=== PATIENT | male | born 1940 | race Caucasian/White ===

== ENCOUNTER → 2019-03-20 | Outpatient (CLI) | payer MEDICARE, MEDICAID, SELFPAY | PROVIDERS: Family Provider Nurse Practitioner; Visit Provider Internal Medicine Critical Care Medicine | DX: J44.9 Chronic obstructive pulmonary disease, unspecified (principal) | CPT/HCPCS: 36600; 80051; 82330; 82805; 83605 ==

== ENCOUNTER → 2019-03-29 16:39 | Outpatient (BNVA) | payer MEDICARE, MEDICAID, SELFPAY | PROVIDERS: Family Provider Nurse Practitioner; PCP Nurse Practitioner; Visit Provider Nurse Practitioner Family | DX: M25.551 Pain in right hip (principal); R91.1 Solitary pulmonary nodule; R78.5 Finding of other psychotropic drug in blood; E61.1 Iron deficiency; J30.89 Other allergic rhinitis; F41.1 Generalized anxiety disorder; K59.00 Constipation, unspecified; J44.9 Chronic obstructive pulmonary disease, unspecified; I10 Essential (primary) hypertension; K21.9 Gastro-esophageal reflux disease without esophagitis; E11.9 Type 2 diabetes mellitus without complications | CPT/HCPCS: 73502; 80053; 80061; 83036; 84443; 85025 ==

== ENCOUNTER 2019-04-03 15:33 | Outpatient (CLI) | payer MEDICARE, MEDICAID, SELFPAY ==
[2019-04-03 16:32] LABS: Creatinine Urine, Random 70 mg/dL (39-259)
[2019-04-03 16:48] LABS: Microalbum Creatinine Ratio Ur 14 mg/dL (0-20); Microalbumin Random Urine 1 ug/dL (0-20)
[2019-04-04 14:51] LABS: Immunoglobulin E 294 kU/L (<OR=114)
== END 2019-04-03 15:34 | disposition home or self-care (01) ==
LOC: LAB 15:40
PROVIDERS: Family Provider Nurse Practitioner; PCP Nurse Practitioner; Visit Provider Nurse Practitioner Family
DX: E11.69 Type 2 diabetes mellitus with other specified complication (principal); Z79.4 Long term (current) use of insulin
CPT/HCPCS: 82044; 82785

== ENCOUNTER → 2019-05-01 13:14 | Outpatient (BNVA) | payer MEDICARE, MEDICAID, SELFPAY | PROVIDERS: Family Provider Nurse Practitioner; PCP Nurse Practitioner; Referring Provider Nurse Practitioner Family; Visit Provider Specialist | DX: M25.551 Pain in right hip (principal); M16.11 Unilateral primary osteoarthritis, right hip | CPT/HCPCS: 73502 ==

== ENCOUNTER 2019-05-11 07:35 | Outpatient (CLI) | payer MEDICARE, MEDICAID, SELFPAY ==
[2019-05-11 10:26] LABS: Basophils % 0.3 %; Eosinophils # 0.2 10^3/uL (0.0-0.8); Eosinophils % 1.9 %; Lymphocytes # 1.2 10^3/uL (0.8-4.8); Mean Corpuscular Hemoglobin 29.1 pg (28.0-34.0); Mean Corpuscular Volume 94.2 fL (80-94); Mean Platelet Volume 9.5 fL (7.4-10.4); Monocytes # 0.8 10^3/uL (0.2-0.9); Monocytes % 10.1 %; Neutrophils # 5.5 10^3/uL (1.8-7.7); Neutrophils % 71.4 %; Nucleated Red Blood Cells % 0 %; Platelet Count 227 10^3/cmm (130-400); Red Blood Count 4.46 10^6/uL (4.1-5.3); Red Cell Distribution Width 13.3 % (12.1-15.1); White Blood Count 7.7 10^3/uL (4.0-10.0)
[2019-05-11 10:40] LABS: Alanine Aminotransferase 16 U/L (0-41); Albumin Level 3.1 g/dL (3.5-5.2); Alkaline Phosphatase 69 IU/L (40-130); Anion Gap 15.2 (5-19); Aspartate Amino Transferase 17 U/L (0-40); Blood Urea Nitrogen 20 mg/dL (8-23); Calcium 9.7 mg/dL (8.5-10.5); Carbon Dioxide 30 mmol/L (22-29); Chloride 101 mmol/L (98-107); Globulin 3.3 g/dL (1.3-4.6); Glucose 151 mg/dL (65-115); Potassium 5.2 mmol/L (3.5-5.1); Sodium 141 mmol/L (136-145); Total Bilirubin 0.4 mg/dL (0.15-1.2); Total Protein 6.4 g/dL (6.6-8.7)
== END 2019-05-11 07:36 | disposition home or self-care (01) ==
LOC: ONCMED 10:27
PROVIDERS: Family Provider Nurse Practitioner; PCP Nurse Practitioner; Visit Provider Internal Medicine Hematology & Oncology
DX: C18.7 Malignant neoplasm of sigmoid colon (principal)
CPT/HCPCS: 80053; 85025

== ENCOUNTER 2019-05-12 09:34 | Outpatient (CLI) | payer MEDICARE, MEDICAID, SELFPAY | END 2019-05-12 09:35 | disposition home or self-care (01) | LOC: ONCMED 09:37 | PROVIDERS: Family Provider Nurse Practitioner; PCP Nurse Practitioner; Visit Provider Internal Medicine Hematology & Oncology | DX: Z01.89 Encounter for other specified special examinations (principal) ==

== ENCOUNTER 2019-05-22 11:49 | Emergency (ER) | payer MEDICARE, MEDICAID, SELFPAY | END 2019-05-22 17:26 | disposition admitted as inpatient to this hospital (09) | LOC: ER 07-14 12:20 | PROVIDERS: Emergency Provider Family Medicine; Family Provider Nurse Practitioner; PCP Nurse Practitioner | DX: J44.0 Chronic obstructive pulmonary disease with (acute) lower respiratory infection (principal); J18.8 Other pneumonia, unspecified organism; D72.829 Elevated white blood cell count, unspecified; I11.0 Hypertensive heart disease with heart failure; I50.9 Heart failure, unspecified; E11.9 Type 2 diabetes mellitus without complications; E78.5 Hyperlipidemia, unspecified; Z99.81 Dependence on supplemental oxygen; Z87.891 Personal history of nicotine dependence | CPT/HCPCS: 36415; 71046; 71260; 80053; 83540; 83550; 83880; 84145; 84443; 85025; 87804; 99283; 99285; J0696; Q9967 ==

== ENCOUNTER 2019-05-22 12:01 | Inpatient (IN) | payer MEDICAID, SELFPAY ==
[2019-05-22] VITALS (8 sets, daily range): BP systolic 111–136; BP diastolic 51–67; PULSE 50–82; RESP 16–24; TEMP 36.6–36.9; O2SAT 92–98; BMI 30.7
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
--- NOTE | 2019-05-22 12:30 | XR_ITS ---
WS: [id number] XR chest 2V* [id number] REASON FOR EXAM: SOB FINDINGS: Borderline cardiomegaly is noted the heart is similar to previous exam February 26, 2019. Th e A dual electrode pacemaker is again seen electrode wiring satisfactory. Both lung malone appear to be clear with no pneumonia, pleural effusion, pulmonary edema, are pneumot horax. The hilum and apices are normal. No osseous abnormalities other than degenerate changes of the thoracic spine. XR/XR chest 2V* 54415 IMPRESSION: No acute cardiopulmonary changes. Dual electrode pacemaker.
[2019-05-22 12:57] LABS: Basophils % 0.2 %; Eosinophils % 0.1 %; Hematocrit 42.3 % (42.0-52.0); Hemoglobin 13.1 g/dL (11.7-16.6); Lymphocytes % 6.1 %; Mean Corpuscular Hemoglobin 28.3 pg (28.0-34.0); Mean Corpuscular Volume 91.4 fL (80-94); Monocytes # 1.1 10^3/uL (0.2-0.9); Monocytes % 6.8 %; Neutrophils # 14.4 10^3/uL (1.8-7.7); Neutrophils % 86.4 %; Nucleated Red Blood Cells % 0 %; Platelet Count 211 10^3/cmm (130-400); Red Blood Count 4.63 10^6/uL (4.1-5.3); Red Cell Distribution Width 13.1 % (12.1-15.1); White Blood Count 16.6 10^3/uL (4.0-10.0)
[2019-05-22 13:09] LABS: Alanine Aminotransferase 18 U/L (0-41); Albumin Level 3.1 g/dL (3.5-5.2); Alkaline Phosphatase 60 IU/L (40-130); Anion Gap 14.4 (5-19); Aspartate Amino Transferase 18 U/L (0-40); Blood Urea Nitrogen 15 mg/dL (8-23); Calcium 9.2 mg/dL (8.5-10.5); Carbon Dioxide 26 mmol/L (22-29); Chloride 101 mmol/L (98-107); Globulin 3.5 g/dL (1.3-4.6); Glucose 166 mg/dL (65-115); Potassium 4.4 mmol/L (3.5-5.1); Sodium 137 mmol/L (136-145); Total Bilirubin 0.8 mg/dL (0.15-1.2); Total Protein 6.6 g/dL (6.6-8.7)
[2019-05-22 13:16] LABS: Influenza A by IFA Negative (Negative); Influenza B by IFA Negative (Negative)
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
[2019-05-22] MEDS: iohexol 300 mg/mL 100 mL Btl IV (14:45)
[2019-05-22] MEDS: cefTRIAXone 2,000 MG in sodium chloride 0.9% (plus) 50 ML 100 MG IV (16:06)
--- NOTE | 2019-05-22 17:08 | PC.PHAR ---
PT STATES THAT [facility] TAKES CARE OF HIS MEDICATION, I TALKED TO STEVAN FROM [facility] SHE STATES THE LAST TIME THE LIST WAS UPDATED WAS IN OCTOBER 2018 BUT SHE WENT OVER THE LIST OF WHAT THEY HAD AND THATS WHAT WAS PUT IN
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
[2019-05-22] MEDS: azithromycin 500 MG in sodium chloride 0.9% 250 ML 250 MG IV (17:19)
[2019-05-22 17:48] LABS: Glucose Point of Care 126 mg/dL (70-110)
[2019-05-22 18:22] LABS: Lactic Sepsis W/Reflex 0.9 mmol/L (0.5-2.2)
[2019-05-22 18:26] LABS: NT Pro B Type Natriuretic Pept 3953 pg/mL (0-450)
[2019-05-22 18:55] LABS: Procalcitonin 0.13 ng/mL (0-0.5); Thyroid Stimulating Hormone 1.38 uIU/mL (0.27-4.20)
[2019-05-22 19:06] LABS: Iron 25 ug/dL (59-158); Percent Saturation 10.5 % (20-50); Total Iron Binding Capacity 237 mcg/dl; Unsaturated Iron Binding 212 ug/dL (112-347)
[2019-05-22 19:26] LABS: Influenza A by IFA Negative (Negative); Influenza B by IFA Negative (Negative)
[2019-05-22] MEDS: budesonide 0.5 mg/2 mL Neb INHALATION (19:43)
[2019-05-22] MEDS: ipratropium-albuterol 3 mL Neb INHALATION (19:43)
[2019-05-22] MEDS: enoxaparin 40 mg/0.4 mL Syringe SUBCUT (20:06)
[2019-05-22] MEDS: tamsulosin 0.4 mg Capsule PO (20:06)
[2019-05-22 21:02] LABS: Glucose Point of Care 200 mg/dL (70-110)
[2019-05-22 22:38] LABS: Bacteria Urine TRACE; Bilirubin Urine 1+ (NEGATIVE); Blood Urine Neg (Negative); Glucose Urine UA Norm (Normal); Ketones Urine Negative (Negative); Leukocyte Esterase Urine Negative (Negative); Nitrate Urine Negative (Negative); Protein Urine Trace (Negative); Specific Gravity, Urine 1.015 (1.005-1.030); Squamous Epithelial Cell Urine RARE (0-5); Transitional Epi Cells Urine RARE /hpf; Urine Appearance Clear (CLEAR); Urine Color Dark Yellow (Yellow); Urobilinogen Urine Norm (Negative); pH Urine 5 (5-7)
[2019-05-22 22:39] LABS: Add Urine Culture? No; Fine Granular Casts Urine 0-4 /lpf; Mucus Urine TRACE
[2019-05-23] VITALS (13 sets, daily range): BP systolic 103–158; BP diastolic 50–101; PULSE 53–88; RESP 18–24; TEMP 36.4–37.1; O2SAT 94–100
[2019-05-23] MEDS: ipratropium-albuterol 3 mL Neb INHALATION ×4 (02:53→20:01)
[2019-05-23] MEDS: acetaminophen 325 mg Tablet 650 MG PO (03:44)
[2019-05-23 04:51] LABS: Basophils % 0.2 %; Eosinophils # 0.1 10^3/uL (0.0-0.8); Hematocrit 39.1 % (42.0-52.0); Hemoglobin 12.3 g/dL (11.7-16.6); Lymphocytes # 1.4 10^3/uL (0.8-4.8); Lymphocytes % 15.1 %; Mean Corpuscular HGB Conc 31.5 g/dL (30.0-36.0); Mean Corpuscular Hemoglobin 27.8 pg (28.0-34.0); Mean Corpuscular Volume 88.5 fL (80-94); Mean Platelet Volume 9.3 fL (7.4-10.4); Monocytes # 1.1 10^3/uL (0.2-0.9); Monocytes % 11.4 %; Neutrophils # 6.7 10^3/uL (1.8-7.7); Nucleated Red Blood Cells % 0 %; Platelet Count 213 10^3/cmm (130-400); Red Blood Count 4.42 10^6/uL (4.1-5.3); Red Cell Distribution Width 13.2 % (12.1-15.1); White Blood Count 9.3 10^3/uL (4.0-10.0)
[2019-05-23 05:15] LABS: Alanine Aminotransferase 16 U/L (0-41); Albumin Level 3.2 g/dL (3.5-5.2); Alkaline Phosphatase 64 IU/L (40-130); Anion Gap 17.5 (5-19); Aspartate Amino Transferase 16 U/L (0-40); Blood Urea Nitrogen 20 mg/dL (8-23); Calcium 9.4 mg/dL (8.5-10.5); Carbon Dioxide 26 mmol/L (22-29); Chloride 100 mmol/L (98-107); Globulin 3.1 g/dL (1.3-4.6); Glucose 140 mg/dL (65-115); Potassium 4.5 mmol/L (3.5-5.1); Sodium 139 mmol/L (136-145); Total Bilirubin 0.5 mg/dL (0.15-1.2); Total Protein 6.3 g/dL (6.6-8.7)
[2019-05-23 05:23] LABS: Estmated Average Glucose 140; Hemoglobin A1C 6.5 % (4.0-6.0)
[2019-05-23 06:38] LABS: Glucose Point of Care 114 mg/dL (70-110)
[2019-05-23] MEDS: budesonide 0.5 mg/2 mL Neb INHALATION ×2 (08:30→20:01)
[2019-05-23] MEDS: famotidine 20 mg Tablet 40 MG PO ×2 (08:50→18:00)
[2019-05-23] MEDS: fluticasone nasal spray 16gm Btl 2 SPRAY INTRANASAL (08:50)
[2019-05-23] MEDS: ferrous sulfate EC 325 mg Tablet PO (08:50)
[2019-05-23] MEDS: finasteride 5 mg Tablet PO (08:51)
[2019-05-23] MEDS: roflumilast 500 mcg Tablet PO (08:51)
[2019-05-23] MEDS: metoprolol tartrate 50 mg Tablet 75 MG PO ×2 (08:51→18:00)
[2019-05-23] MEDS: atorvastatin 40 mg Tablet 80 MG PO (08:51)
[2019-05-23] MEDS: aspirin 81 mg EC Tablet PO (08:51)
[2019-05-23] MEDS: montelukast sodium 10 mg Tablet PO (08:51)
[2019-05-23] MEDS: tamsulosin 0.4 mg Capsule PO ×2 (08:51→18:01)
[2019-05-23] MEDS: FUROsemide 40 mg Tablet PO (08:52)
[2019-05-23 12:06] LABS: Glucose Point of Care 135 mg/dL (70-110)
--- NOTE | 2019-05-23 14:30 | P.PN_ITS ---
Subjective Subjective: Interval history: fells better today, States breathing is improving but not at baseline yet. Saturating well on 4lpm NC, which is his usual home 02 requirement Medications: Reviewed: Yes Vitals/I&O/Wt Last Vital Signs Temp 97.9 F 05/23/19 11:25 Pulse 67 05/23/19 14:23 Resp 18 05/23/19 14:23 BP 158/101 05/23/19 11:25 Pulse Ox 97 05/23/19 14:23 05/22/19 05/23/19 05/23/19 22:59 06:59 14:59 Intake Total 400 / 400 960 / 960 Output Total 125 / 125 Balance 400 / 400 -125 / 275 960 / 960 Weight last 48 hrs Weight 81.737 kg Weight 99.79 kg Physical Exam Narrative: EXAM NARRATIVE: GEN: Awake, alert and oriented, no acute distress CVS: S1S2 N RS: CTA B/L except crackles over RUL Abd: Soft, nt/nd , bs+ 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 Data : 05/23/19 04:21 05/23/19 04:21 Micro: Microbiology 05/22/19 18:35 MRSA Culture - Final Nose 05/22/19 17:39 Blood Culture - Preliminary Blood SPECIMEN COLLECTED 05/22/19 17:39 Blood Culture - Preliminary Blood SPECIMEN COLLECTED A&P Assessment and plan (1) Shortness of breath: Status: Acute Code(s): R06.02 - Shortness of breath (2) Community acquired pneumonia: Status: Acute Qualifiers: Laterality: left Lung location: lower lobe of lung Qualified Code(s): J18.9 - Pneumonia, unspecified organism Code(s): J18.9 - Pneumonia, unspecified organism (3) COPD (chronic obstructive pulmonary disease): Status: Chronic Qualifiers: COPD type: unspecified COPD Qualified Code(s): J44.9 - Chronic obstructive pulmonary disease, unspecified Code(s): J44.9 - Chronic obstructive pulmonary disease, unspecified (4) CHF (congestive heart failure): Status: Acute Code(s): I50.9 - Heart failure, unspecified (5) GERD (gastroesophageal reflux disease): Status: Chronic Qualifiers: Esophagitis presence: without esophagitis Qualified Code(s): K21.9 - Gastro-esophageal reflux disease without esophagitis Code(s): K21.9 - Gastro-esophageal reflux disease without esophagitis (6) Essential hypertension: Status: Chronic Code(s): I10 - Essential (primary) hypertension Additional A&P Information Shortness of breath: Most likely due to community-acquired pneumonia: CT chest concerning for left lower lobe consolidation. continue the ceftriaxone and azithromycin for now. Patient is hemodynamically stable and saturating well on baseline oxygen supplementation. COPD: Does not have extensive wheezing at present, saturating well on baseline oxygen supplementation. For now we will continue on duo nebs, budesonide. Will hold off on starting on any steroids for now. Continue home dose of fluticasone. Wean off oxygen supplementation keeping saturation between 88-90% Continue home dose of Singulair, Daliresp as prescribed by Dr. Maxwell as an outpatient. CHF: Patient seems euvolemic at present. Continue home dose of Lasix at 40 mg daily. Last echo from January 2019 shows an EF of 40%, diffuse hypokinesis, grade?1 diastolic dysfunction. Hypertension: We will monitor blood pressures. For now continue home dose of Lopressor but will divide and twice daily dosage. Continue chronic home medications like aspirin, finasteride, oral iron supplementation, nortriptyline, Flomax. Fall precautions Regular cardiac diet. Lovenox for DVT prophylaxis. Protonix for PUD prophylaxis Full code. Attestations Medical Necessity Statement*: optimization of respiratory status Coding Level of Care Code Acute Supervisor Finishing for [facility] Fwd Diagnoses Shortness of breath R06.02 Community acquired pneumonia J18.9 Laterality: left Lung location: lower lobe of lung COPD (chronic obstructive pulmonary disease) J44.9 COPD type: unspecified COPD CHF (congestive heart failure) I50.9 GERD (gastroesophageal reflux disease) K21.9 Esophagitis presence: without esophagitis Essential hypertension I10
--- NOTE | 2019-05-23 15:20 | PC.CHAP ---
Pastoral Care Encounter/Spiritual Assessment Type of Contact [] Declined nutrition program instructor visit [] Patient/Family/Request visit [] Outpatient visit [] Follow-up visit [] Physician referral [] Code/Alert [x] Routine visit [] Staff referral [] Actively dying [] Patient sleeping [] Family support [] [] Out of room [] Palliative care [] [] Receiving care in room [] Pre-surgical visit [] Trauma [] Long length of stay [] ICU visit [] Other: Relational/Emotional Strength [x] Patient feels connected with others/family/visitors/staff [] Distress [] Loneliness/isolation [] Abandonment Spirituality of Patient [] Person of Lynda [] Attends Christianity of their Lynda [x] Believes in Prayer [] Reads Bible or Hinduism materials [] There are Spiritual issues to be addressed Airconditioning Engineer Interventions [x] Prayer [x] Active listening [x] Non-anxious presence [x] Spiritual/emotional support [] Crisis/trauma care [] Spiritual counseling [] Bereavement support [] Provided bereavement packet [] Provided Bible/devotional materials [] Provided toy/stuffed animal, coloring book to patient or family member [] Provided Communion [] Anointing/Trent [] Salvation [x] Completed spiritual assessment [] Other: Impact on Illness or Injury [] Angry [] Fearful [] Anxious [] Often cries [] Exhaustion [] Unable to work [] Unable to attend orthodox [] Unable to walk/stand [] Unable to read [] Unable to drive [] Unable to eat/drink [] Unable to sleep [] Unable to be with family [] Patient intubated [x] Other: Senior citizen with many health issues that limit activities. Summary Pt is pleasant and talkative and wanted to describe ailment the have told him he has. Time spent with patient 7 min
[2019-05-23] MEDS: cefTRIAXone 1,000 MG in sodium chloride 0.9% (plus) 50 ML 100 MG IV (15:58)
[2019-05-23 16:59] LABS: Glucose Point of Care 126 mg/dL (70-110)
[2019-05-23] MEDS: azithromycin 500 MG in sodium chloride 0.9% 250 ML 250 MG IV (18:00)
[2019-05-23] MEDS: enoxaparin 40 mg/0.4 mL Syringe SUBCUT (18:05)
[2019-05-24] VITALS (12 sets, daily range): BP systolic 126–145; BP diastolic 66–73; PULSE 55–90; RESP 17–22; TEMP 36.4–36.8; O2SAT 87–100
[2019-05-24] MEDS: ipratropium-albuterol 3 mL Neb INHALATION ×3 (02:12→14:32)
[2019-05-24 06:14] LABS: Glucose Point of Care 184 mg/dL (70-110)
[2019-05-24 06:14] LABS: Glucose Point of Care 149 mg/dL (70-110)
[2019-05-24] MEDS: budesonide 0.5 mg/2 mL Neb INHALATION (08:23)
[2019-05-24] MEDS: fluticasone nasal spray 16gm Btl 2 SPRAY INTRANASAL (08:23)
[2019-05-24] MEDS: aspirin 81 mg EC Tablet PO (08:23)
[2019-05-24] MEDS: famotidine 20 mg Tablet 40 MG PO (08:24)
[2019-05-24] MEDS: FUROsemide 40 mg Tablet PO (08:24)
[2019-05-24] MEDS: tamsulosin 0.4 mg Capsule PO (08:25)
[2019-05-24] MEDS: metoprolol tartrate 50 mg Tablet 75 MG PO (08:25)
[2019-05-24] MEDS: atorvastatin 40 mg Tablet 80 MG PO (08:25)
[2019-05-24] MEDS: montelukast sodium 10 mg Tablet PO (08:27)
[2019-05-24] MEDS: roflumilast 500 mcg Tablet PO (08:28)
[2019-05-24] MEDS: finasteride 5 mg Tablet PO (08:28)
[2019-05-24] MEDS: ferrous sulfate EC 325 mg Tablet PO (08:29)
--- NOTE | 2019-05-24 10:15 | PC.SOCIAL ---
Patient was given the [facility] Beneficiary Notification Letter. Signed and placed in chart.
[2019-05-24 10:58] LABS: Glucose Point of Care 182 mg/dL (70-110)
--- NOTE | 2019-05-24 12:35 | PC.RESP ---
Patient given information on Pulmonary Rehab.
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
== END 2019-05-24 16:33 | disposition home health service (06) | DRG 194 ==
LOC: ER 13:44 → MEDSURG 17:25
PROVIDERS: Student in an Organized Health Care Education/Training Program; Admitting Provider Student in an Organized Health Care Education/Training Program; Emergency Provider Family Medicine; Family Provider Nurse Practitioner; PCP Nurse Practitioner; Visit Provider Student in an Organized Health Care Education/Training Program
DX: J18.9 Pneumonia, unspecified organism (principal); J44.0 Chronic obstructive pulmonary disease with (acute) lower respiratory infection; I50.40 Unspecified combined systolic (congestive) and diastolic (congestive) heart failure; K21.9 Gastro-esophageal reflux disease without esophagitis; I11.0 Hypertensive heart disease with heart failure; Z99.81 Dependence on supplemental oxygen; Z79.4 Long term (current) use of insulin; Z79.51 Long term (current) use of inhaled steroids; Z79.82 Long term (current) use of aspirin; Z79.899 Other long term (current) drug therapy; Z87.891 Personal history of nicotine dependence
CPT/HCPCS: 12345; 36415; 36416; 71046; 71260; 80053; 81001; 82962; 83036; 83540; 83550; 83605; 83880; 84145; 84443; 85025; 87040; 87641; 87804; 94640; 94664; 96372; 97116; 97161; 99283; 99285; J0456; J0696; J1650; J7050; J7626; Q9967

== ENCOUNTER → 2019-05-31 11:50 | Outpatient (BNVA) | payer MEDICARE, MEDICAID, SELFPAY | PROVIDERS: Family Provider Nurse Practitioner; PCP Nurse Practitioner; Visit Provider Nurse Practitioner | DX: J18.9 Pneumonia, unspecified organism (principal); J44.9 Chronic obstructive pulmonary disease, unspecified; R06.02 Shortness of breath; Z95.0 Presence of cardiac pacemaker | CPT/HCPCS: 71046 ==

== ENCOUNTER → 2019-09-14 09:37 | Outpatient (BNVA) | payer MEDICARE, MEDICAID, SELFPAY | PROVIDERS: Family Provider Nurse Practitioner; PCP Nurse Practitioner; Visit Provider Nurse Practitioner Family | DX: R06.02 Shortness of breath (principal); R91.1 Solitary pulmonary nodule; R63.4 Abnormal weight loss; K21.9 Gastro-esophageal reflux disease without esophagitis; J44.9 Chronic obstructive pulmonary disease, unspecified | CPT/HCPCS: 71046; 80053; 85025 ==

== ENCOUNTER 2019-09-25 08:41 | Outpatient (CLI) | payer MEDICARE, MEDICAID, SELFPAY ==
--- NOTE | 2019-09-25 09:00 | CT_ITS ---
WS: [id number] CT CHEST, ABDOMEN, AND PELVIS TECHNIQUE: Contrast-enhanced CT of the chest, abdomen, and pelvis with coronal and sagittal reformatt ed images. CLINICAL INFORMATION: hiatal hernaia, unintentional weight loss COMPARISON: CT chest May 22, 2019. CT abdomen pelvis February 26, 2019 DLP: 2398.[address] scans at [facility] use at least one of these dose optimization techniques: automat ed exposure control; mA and/or kV adjustment per patient size (includes targeted exams where dose is matched to clinical indication); or iterative reconstruction. CT CHEST: Mild chronic emphysematous changes. No acute pulmonary infiltrates. Persistent described infiltrates in the left lower lobe have essentially resolved with a small amount of residual subsegmental atelect asis. Interstitial infiltrates left upper lobe previously described have resolved. Stable noncontrast pulmonary nodule left lower lobe measuring 5 mm. Cardiomegaly. No mediastinal or hilar lymphadenopathy. Normal caliber thoracic aorta. Aortic calcific ation. Coronary calcification. Small esophageal hiatal hernia. Hypertrophic changes thoracic spine. CT ABDOMEN AND PELVIS: Diffuse fatty infiltration of the liver. A few incidental hepatic cysts. Cholelithiasis. Small esopha geal hiatal hernia. Normal spleen. Adrenal glands are normal. Normal renal parenchymal enhancement. N o obstructing renal parenchymal calculi. Incidental small left renal cyst measuring 11 mm. Unremarkab le pancreas. Normal caliber abdominal aorta. Aortic calcification. Diverticulosis. No acute diverticulitis. Diffuse heterogeneous enhancement of the prostate with nodul arity. Recommend correlation for PSA. Left anterior eccentric prostate nodule measuring 1.7 cm. Diffu se bladder wall thickening with chronic bladder outlet obstruction. Right anterior bladder diverticul um measuring 1.4 cm. Prior postoperative changes sigmoid colon.Grade 1 anterolisthesis L5 on S1 with chronic bilateral pars defects. CT/CT chest abd pel w con* IMPRESSION: 1. Previous described pulmonary infiltrates have resolved. No new pulmonary in filtrates. 2. Stable noncalcified nodule left lower lobe. Recommend 12 month follow-up. 3. Diffuse fatty infiltration of the liver. Stable hepatic cysts. 4. Cholelithiasis. 5. Diffuse heterogeneous enhancement with nodularity involving the prostate. R ecommend correlation PSA. 6. Evidence of bladder outlet obstruction with diffuse bladder wall thickening . 7. Small esophageal hiatal hernia.
[2019-09-25] MEDS: iohexol 300 mg/mL 50 mL Btl PO (09:10)
[2019-09-25] MEDS: iodixanol 320 mg/mL 100mL Btl IV (10:47)
== END 2019-09-25 08:42 | disposition home or self-care (01) ==
LOC: RADWPI 08:45
PROVIDERS: Family Provider Nurse Practitioner; PCP Nurse Practitioner; Visit Provider Nurse Practitioner Family
DX: R91.1 Solitary pulmonary nodule (principal); K44.9 Diaphragmatic hernia without obstruction or gangrene; R63.4 Abnormal weight loss; K76.0 Fatty (change of) liver, not elsewhere classified; K80.20 Calculus of gallbladder without cholecystitis without obstruction
CPT/HCPCS: 71260; 74177; Q9967

== ENCOUNTER 2019-10-10 09:39 | Day surgery (SDC) | payer MEDICARE, MEDICAID, SELFPAY ==
[2019-10-09 08:12] VITALS: BMI 25.1
[2019-10-10 09:13] VITALS: BP 130/81; PULSE 67; RESP 20; TEMP 36.3; O2SAT 100
[2019-10-10 09:28] LABS: Glucose Point of Care 133 mg/dL (70-110)
[2019-10-10] MEDS: sodium chloride 0.9% 1,000 ML 30 ML IV (09:41)
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
--- NOTE | 2019-10-10 11:33 | W.PM.OPSUD ---
Surgery/Procedure H&P Update DATE OF PROCEDURE: October 10, 2019 DATE H&P PERFORMED: 10/02/19 H&P UPDATE INFORMATION: I have reviewed H&P completed within last 30 days, I have examined patient prior to procedure and No changes to prior documentation PREOP DIAGNOSIS: gerd, ca PLANNED PROCEDURE: Operation Date: 10/10/19 10:00 Proposed Procedures p EGD/Colon 52435 61743 C18.9 K21.9(Not Applicable) - Ty Shea MD s Colonoscopy(Not Applicable) - Ty Shea MD
[2019-10-10 11:34] LABS: Carcinoembryonic Antigen 1.7 ng/mL (0.0-4.7)
[2019-10-10 12:23] VITALS: BP 110/68; PULSE 62; RESP 16; TEMP 36.2; O2SAT 94
[2019-10-10 12:47] VITALS: BP 137/91; PULSE 61; RESP 18; TEMP 36.2; O2SAT 98
== END 2019-10-10 13:06 | disposition home or self-care (01) ==
PROVIDERS: PCP Nurse Practitioner; Visit Provider Surgery
PROC: 0DJ08ZZ Inspection of Upper Intestinal Tract, Via Natural or Artificial Opening Endoscopic (ICD-10-PCS; CPT 43235; principal; 2019-10-10 10:00)
PROC: 0DJD8ZZ Inspection of Lower Intestinal Tract, Via Natural or Artificial Opening Endoscopic (ICD-10-PCS; CPT 45378; 2019-10-10 10:00)
DX: Z85.038 Personal history of other malignant neoplasm of large intestine (principal); K21.9 Gastro-esophageal reflux disease without esophagitis; D12.2 Benign neoplasm of ascending colon; D12.0 Benign neoplasm of cecum; D12.4 Benign neoplasm of descending colon; D12.3 Benign neoplasm of transverse colon; K57.30 Diverticulosis of large intestine without perforation or abscess without bleeding; K64.8 Other hemorrhoids; K29.70 Gastritis, unspecified, without bleeding; K44.9 Diaphragmatic hernia without obstruction or gangrene; J44.9 Chronic obstructive pulmonary disease, unspecified; I10 Essential (primary) hypertension; I25.2 Old myocardial infarction; E11.9 Type 2 diabetes mellitus without complications; E78.5 Hyperlipidemia, unspecified; F41.1 Generalized anxiety disorder
CPT/HCPCS: 12345; 36416; 45380; 82378; 82962; 88305; J2704; J7030

== ENCOUNTER → 2019-10-23 16:29 | Outpatient (BNVA) | payer MEDICARE, MEDICAID, SELFPAY | PROVIDERS: PCP Nurse Practitioner; Visit Provider Nurse Practitioner | DX: J44.9 Chronic obstructive pulmonary disease, unspecified (principal); E11.22 Type 2 diabetes mellitus with diabetic chronic kidney disease; N18.2 Chronic kidney disease, stage 2 (mild); Z79.4 Long term (current) use of insulin | CPT/HCPCS: 71046; 80053; 83036; 85025 ==

== ENCOUNTER 2019-11-22 07:55 | Outpatient (CLI) | payer MEDICARE, MEDICAID, SELFPAY ==
[2019-11-22 14:48] LABS: Basophils % 0.6 %; Eosinophils # 0.1 10^3/uL (0.0-0.8); Eosinophils % 1.7 %; Hematocrit 45.9 % (42.0-52.0); Hemoglobin 14.6 g/dL (11.7-16.6); Lymphocytes # 1.3 10^3/uL (0.8-4.8); Lymphocytes % 17.5 %; Mean Corpuscular HGB Conc 31.8 g/dL (30.0-36.0); Mean Corpuscular Volume 91.1 fL (80-94); Mean Platelet Volume 8.8 fL (7.4-10.4); Monocytes # 0.6 10^3/uL (0.2-0.9); Monocytes % 7.8 %; Neutrophils # 5.21 10^3/uL (1.8-7.7); Neutrophils % 72.1 %; Nucleated Red Blood Cells % 0 %; Platelet Count 228 10^3/cmm (130-400); Red Blood Count 5.04 10^6/uL (4.1-5.3); White Blood Count 7.2 10^3/uL (4.0-10.0)
[2019-11-22 15:09] LABS: Carcinoembryonic Antigen 1.5 ng/mL (0.0-4.7)
[2019-11-22 15:21] LABS: Alanine Aminotransferase 30 U/L (0-41); Albumin Level 3.5 g/dL (3.5-5.2); Alkaline Phosphatase 66 IU/L (40-130); Anion Gap 20.1 (5-19); Aspartate Amino Transferase 19 U/L (0-40); Blood Urea Nitrogen 19 mg/dL (8-23); Calcium 8.7 mg/dL (8.5-10.5); Carbon Dioxide 25 mmol/L (22-29); Chloride 96 mmol/L (98-107); Globulin 2.8 g/dL (1.3-4.6); Glucose 115 mg/dL (65-115); Osmolality Calculated 281 mOsm/kg (285-295); Potassium 4.1 mmol/L (3.5-5.1); Sodium 137 mmol/L (136-145); Total Bilirubin 0.4 mg/dL (0.15-1.2); Total Protein 6.3 g/dL (6.6-8.7)
== END 2019-11-22 07:56 | disposition home or self-care (01) ==
LOC: ONCMED 13:58
PROVIDERS: PCP Nurse Practitioner; Visit Provider Internal Medicine Hematology & Oncology
DX: C18.7 Malignant neoplasm of sigmoid colon (principal)
CPT/HCPCS: 80053; 82378; 85025

== ENCOUNTER 2019-11-23 05:58 | Outpatient (CLI) | payer MEDICARE, MEDICAID, SELFPAY ==
--- NOTE | 2019-11-23 15:34 | ONC FU_ITS ---
Dr. Ervin follow up note Patient: Andrew Sainz Unit #: [id number]: 1940 Dicatated By: Bunny Ervin M.D.Date of Visit:Nov 23, 2019 Onc Med Follow-up/Prog Note History of Present Illness: Mr. Andrew Sainz, is a 79-year-old gentleman with history of iron deficiency anemia and GI bleed , underwent CT scan of abdomen pelvis on 05/26/2018 which showed extensive sigmoid diverticulosis and some mild wall thickening throughout the sigmoid and no adenopathy and stable hepatic low attenuation masses which are probably hepatic cysts. Patient underwent laparoscopic sigmoidectomy on 06/15/2018 and final pathology report showed infiltrating adenocarcinoma mucinous adenocarcinoma, low grade tumor dimension was 1.1 x 1.1 cm with clear surgical margins 0 out of 10 lymph node positive for metastatic disease no lymphovascular invasion identified. Patient tolerated procedure very well COPD on home oxygen, [place] Patient was admitted to hospital with hyperglycemia in February 2019 at that time he had CT scan of abdomen pelvis done which showed no evidence of metastatic disease, no acute abnormality or inflammatory changes seen. Incidental findings include liver cysts, renal cysts and cholelithiasis. Evaluated via telephone, patient denies any specific complaints, no fever or chills, no nausea or vomiting, no diarrhea constipation, darker stools because of oral iron supplements. Patient said he has seen Dr. Shea recently and underwent colonoscopy which showed no evidence disease. Medications: Advair Diskus 2 puff(s) (of 500-50 mcg/dose) Aerosol Powder, Breath Activated Inhalation b.i.d., Aspirin 1 Tablet (of 81 mg) Oral daily, Bydureon 1 (2 mg) Subcutaneous q 7 days, Daliresp 1 Tablet (of 500 mcg) Oral daily, Ferrous Sulfate 1 Tablet (of 325 (65 fe) mg) Oral b.i.d., Finasteride 1 Tablet (of 5 mg) Oral daily, Flonase 2 spray(s) (of 50 mcg/act) Suspension Nasal daily, Loratadine 1 Tablet (of 10 mg) Oral daily, Losartan Potassium 1 Tablet (of 25 mg) Oral b.i.d., Magnesium 1 Capsule (of 400 mg) Oral daily, Metoprolol Succinate ER 1.5 Tablet (of 50 mg) Tablet SR 24 HR Oral daily, MiraLax 1 Pack Oral daily, Montelukast Sodium 1 Tablet (of 10 mg) Oral at bedtime, Nortriptyline HCl 1 Tablet (of 50 mg) Capsule Oral at bedtime, Omeprazole 1 Tablet (of 20 mg) Tablet, enteric coated Oral daily, ProAir HFA 2 puff(s) (of 108 (90 base) mcg/act) Aerosol, solution Inhalation q 4 hours PRN, Rosuvastatin Calcium 1 Tablet (of 40 mg) Oral daily, Spironolactone 1 Tablet (of 25 mg) Oral daily Allergies: No Known Allergies. Review of Systems: Review of Systems is not available for this patient. Vital Signs: Vitals are not available for this patient. Performance Status: 0 - Fully active, able to carry on all predisease activities without restrictions. (ECOG) Physical Examination: ENMT - Patient denies any mouth sores, Respiratory - Patient denies any shortness of breath or wheezing at rest, Cardiovascular - Patient denies any palpitation or tachycardia, Abdomen - Patient denies any abdominal pain or fullness, Extremities - Patient denies any lower extremity edema. Lab/Imaging: Most recent lab results are not available for this patient. Impression: Infiltrating adenocarcinoma of sigmoid colon status post laparoscopic sigmoidectomy done on 06/15/2018 final pathology report showed low-grade tumor, tumor size 1.1 x 1.1 cm Invasion into but not through muscularis propria T2 Clear surgical margins 0 out of 10 lymph nodes were removed showed metastatic disease, N0 No lymphovascular invasion seen Pathological stage 1 (T2,N0,M0) with inadequate lymph node sampling e.g. less than [address] scan of abdomen pelvis done on 05/26/2018 showed stable hepatic low attenuation masses which are probably cysts stable when compared with CT scan from 01/04/2014 Bilateral nephrolithiasis with no obstruction COPD on home oxygen Plan: Discussed with patient regarding his labs on the telephone, white blood count of 7.2 hemoglobin 14.6 crit 45.9 platelets 228,000 CMP within normal limits CEA 1.[address] scan of chest abdomen pelvis ordered by his PMD on September 25, 2019 which showed of disease stable noncalcified nodule left lower lobeAnd as per patient also underwent colonoscopy recently and showed no abnormality. Clinically, patient is doing well with no signs symptom suggestive of recurrence of disease, his follow-up lab work-up is within normal range, at this point, will discontinue his oral iron supplements and he will return to clinic in 6 months with CBC CMP. And will also obtain copy of his colonoscopy from Dr. Shea's office Signed By: Bunny Ervin M.D. <<Signature on File>>
== END 2019-11-23 05:59 | disposition home or self-care (01) ==
LOC: ONCMED 06:00
PROVIDERS: PCP Nurse Practitioner; Visit Provider Internal Medicine Hematology & Oncology
DX: Z08 Encounter for follow-up examination after completed treatment for malignant neoplasm (principal); Z85.038 Personal history of other malignant neoplasm of large intestine; Z90.49 Acquired absence of other specified parts of digestive tract; R91.1 Solitary pulmonary nodule; N20.0 Calculus of kidney; J44.9 Chronic obstructive pulmonary disease, unspecified; Z99.81 Dependence on supplemental oxygen

== ENCOUNTER → 2020-01-17 10:04 | Outpatient (BNVA) | payer MEDICARE, MEDICAID, SELFPAY | PROVIDERS: PCP Nurse Practitioner; Visit Provider Nurse Practitioner | DX: I10 Essential (primary) hypertension (principal); E78.5 Hyperlipidemia, unspecified; E11.22 Type 2 diabetes mellitus with diabetic chronic kidney disease; N18.2 Chronic kidney disease, stage 2 (mild); Z79.4 Long term (current) use of insulin | CPT/HCPCS: 80053; 80061; 83036; 85025 ==

== ENCOUNTER → 2020-01-31 15:29 | Outpatient (BNVA) | payer MEDICARE, MEDICAID, SELFPAY | PROVIDERS: PCP Nurse Practitioner; Visit Provider Urology | DX: N39.46 Mixed incontinence (principal); N39.9 Disorder of urinary system, unspecified | CPT/HCPCS: 81003 ==

== ENCOUNTER → 2020-02-02 09:04 | Outpatient (BNVA) | payer MEDICARE, MEDICAID, SELFPAY | PROVIDERS: PCP Nurse Practitioner; Visit Provider Internal Medicine Critical Care Medicine | DX: Z01.812 Encounter for preprocedural laboratory examination (principal); Z20.828 Contact with and (suspected) exposure to other viral communicable diseases | CPT/HCPCS: 87635 ==

== ENCOUNTER 2020-02-07 12:23 | Outpatient (CLI) | payer MEDICARE, MEDICAID, SELFPAY ==
--- NOTE | 2020-02-07 13:04 | PFTS_ITS ---
Date of Study:02/07/20 Date of Dictation: 02/07/2020 MECHANICS: Forced vital capacity (FVC) is reduced 62% Forced expiratory volume in one second (FEV1) is severely reduced to 50% FEV1/FVC is reduced 59 No postbronchodilator study FLOW VOLUME LOOP: Scooping of end expiratory limb suggestive of airway obstruction . LUNG VOLUMES: Not measured DIFFUSING CAPACITY FOR CARBON MONOXIDE: Mild reduction in gas transfer 68% . INTERPRETATION: The spirometry is consistent with obstructive ventilatory defect with mild reduction in gas transfer. Correlate clinically MTDD
== END 2020-02-07 12:24 | disposition home or self-care (01) ==
LOC: RT 12:29
PROVIDERS: PCP Nurse Practitioner; Visit Provider Internal Medicine Critical Care Medicine
DX: J44.9 Chronic obstructive pulmonary disease, unspecified (principal)
CPT/HCPCS: 94010; 94729

== ENCOUNTER 2020-03-21 10:25 | Emergency (ER) | payer MEDICARE, MEDICAID, SELFPAY ==
[2020-03-21] VITALS (20 sets, daily range): BP systolic 111–131; BP diastolic 51–81; PULSE 68–80; RESP 15–18; TEMP 36.4; O2SAT 92–99; BMI 24.7
--- NOTE | 2020-03-21 11:06 | XR_ITS ---
WS: [id number] Exam: XR chest 1V portable [id number] Date/Time of Exam: 03/21/2020 11:06 AM Reason For Exam: dyspnea Comparison 10/23/2019. The lungs are clear and fully expanded. Normal cardiomediastinal structures and bony elements. A perm anent cardiac pacer superimposes the left chest. Signs of previous cardiac surgery. No pleural effusi ons. XR/XR chest 1V portable [id number] IMPRESSION: 1. No acute cardiopulmonary finding. No change.
--- NOTE | 2020-03-21 11:15 | ECG_ITS ---
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 Measurements Intervals [place] Rate: 78 P: 96 GA: 192 QRS: -61 QRSD: 215 T: 128 QT: 465 QTc: 530 Interpretive Statements ELECTRONIC VENTRICULAR PACEMAKER ABNORMAL RHYTHM ECG Compared to ECG 02/16/2019 21:18:19 No significant changes Electronically Signed On 03-21-2020 15:00:35 DIRECTOR OF SOFTWARE DEVELOPMENT by Jose Mendiola M.D. [email or web address]
[2020-03-21 11:29] LABS: Basophils % 0.6 %; Eosinophils # 0.2 10^3/uL (0.0-0.8); Eosinophils % 3.2 %; Hematocrit 43.1 % (42.0-52.0); Hemoglobin 13.6 g/dL (11.7-16.6); Lymphocytes # 1.1 10^3/uL (0.8-4.8); Lymphocytes % 15.9 %; Mean Corpuscular HGB Conc 31.6 g/dL (30.0-36.0); Mean Corpuscular Hemoglobin 27.6 pg (28.0-34.0); Mean Corpuscular Volume 87.6 fL (80-94); Mean Platelet Volume 8.5 fL (7.4-10.4); Monocytes # 0.8 10^3/uL (0.2-0.9); Nucleated Red Blood Cells % 0 %; Platelet Count 226 10^3/cmm (130-400); Red Blood Count 4.92 10^6/uL (4.1-5.3); Red Cell Distribution Width 13.5 % (12.1-15.1); White Blood Count 6.6 10^3/uL (4.0-10.0)
[2020-03-21 11:36] LABS: Add Urine Microscopic? NO
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
[2020-03-21 11:50] LABS: Bilirubin Urine Neg (Negative); Blood Urine Neg (Negative); Glucose Urine UA Norm (Normal); Ketones Urine Negative (Negative); Leukocyte Esterase Urine Negative (Negative); Nitrate Urine Negative (Negative); Protein Urine Neg (Negative); Urine Appearance Clear (CLEAR); Urine Color Yellow (Yellow); Urobilinogen Urine Norm (Negative); pH Urine 7 (5-7)
[2020-03-21 11:54] LABS: Lactate (Lactic Acid level) 0.9 mmol/L (0.5-2.2)
[2020-03-21 11:56] LABS: Troponin(5th) Baseline 50 ng/L (0-15)
[2020-03-21 12:02] LABS: Alanine Aminotransferase 22 U/L (0-41); Albumin Level 3.1 g/dL (3.5-5.2); Alkaline Phosphatase 83 IU/L (40-130); Anion Gap 11.5 (5-19); Aspartate Amino Transferase 18 U/L (0-40); Blood Urea Nitrogen 13 mg/dL (8-23); Calcium 8.6 mg/dL (8.5-10.5); Carbon Dioxide 31 mmol/L (22-29); Chloride 100 mmol/L (98-107); Globulin 2.5 g/dL (1.3-4.6); Glucose 102 mg/dL (65-115); NT Pro B Type Natriuretic Pept 4946 pg/mL (0-450); Osmolality Calculated 286 mOsm/kg (285-295); Potassium 4.5 mmol/L (3.5-5.1); Sodium 138 mmol/L (136-145); Total Bilirubin 0.4 mg/dL (0.15-1.2); Total Protein 5.6 g/dL (6.6-8.7)
[2020-03-21] MEDS: sodium chloride 0.9% 500 ML IV (12:05)
--- NOTE | 2020-03-21 13:23 | PC.PHAR ---
PT UNABLE TO CONFIRM MEDICATIONS. I SPOKE WITH [facility], BUT THEY STATED THAT THEY DISCHARGED HIM. HE IS NOW WITH [facility] AT HOME. I CALLED THEM, BUT NO ONE WAS THERE. I LEFT A MESSAGE FOR THEM TO CALL ME AT 1230. I HAVEN'T HAD A CALL BACK YET.
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
--- NOTE | 2020-03-21 18:29 | PC.NURSE ---
Pt resting quietly in bed watching tv at this time, pt denies any needs. Pt continues to wait on [facility] transport.
== END 2020-03-21 22:11 | disposition home or self-care (01) ==
PROVIDERS: Emergency Provider Family Medicine; PCP Nurse Practitioner
DX: J44.9 Chronic obstructive pulmonary disease, unspecified (principal); R53.83 Other fatigue; Z79.82 Long term (current) use of aspirin; Z79.4 Long term (current) use of insulin; I11.0 Hypertensive heart disease with heart failure; I50.9 Heart failure, unspecified; Z85.038 Personal history of other malignant neoplasm of large intestine; E11.9 Type 2 diabetes mellitus without complications; E78.5 Hyperlipidemia, unspecified; Z95.0 Presence of cardiac pacemaker
CPT/HCPCS: 12345; 71045; 80053; 81003; 83605; 83880; 84484; 85025; 93005; 94640; 96360; 99283; J3535; J7040

== ENCOUNTER → 2020-04-04 14:14 | Outpatient (BNVA) | payer MEDICARE, MEDICAID, SELFPAY | PROVIDERS: PCP Nurse Practitioner; Visit Provider Nurse Practitioner | DX: J44.9 Chronic obstructive pulmonary disease, unspecified (principal); J30.89 Other allergic rhinitis; E11.22 Type 2 diabetes mellitus with diabetic chronic kidney disease; N18.2 Chronic kidney disease, stage 2 (mild); Z79.4 Long term (current) use of insulin; E61.1 Iron deficiency; K59.01 Slow transit constipation; F41.1 Generalized anxiety disorder; E78.5 Hyperlipidemia, unspecified; I12.9 Hypertensive chronic kidney disease with stage 1 through stage 4 chronic kidney disease, or unspecified chronic kidney disease | CPT/HCPCS: 80053; 83036 ==

== ENCOUNTER → 2020-06-20 13:26 | Outpatient (BNVA) | payer MEDICARE, MEDICAID, SELFPAY | PROVIDERS: PCP Nurse Practitioner; Visit Provider Nurse Practitioner | DX: I10 Essential (primary) hypertension (principal); E11.22 Type 2 diabetes mellitus with diabetic chronic kidney disease; N18.2 Chronic kidney disease, stage 2 (mild); Z79.4 Long term (current) use of insulin; J44.9 Chronic obstructive pulmonary disease, unspecified | CPT/HCPCS: 80053; 80061; 83036; 85025 ==

== ENCOUNTER → 2020-09-17 13:41 | Outpatient (BNVA) | payer MEDICARE, MEDICAID, SELFPAY | PROVIDERS: PCP Nurse Practitioner; Visit Provider Nurse Practitioner | DX: E11.22 Type 2 diabetes mellitus with diabetic chronic kidney disease (principal); I10 Essential (primary) hypertension; J44.9 Chronic obstructive pulmonary disease, unspecified; Z79.4 Long term (current) use of insulin; N18.2 Chronic kidney disease, stage 2 (mild) | CPT/HCPCS: 80053; 80061; 83036; 85025 ==

== ENCOUNTER → 2020-12-12 13:08 | Outpatient (BNVA) | payer MEDICARE, MEDICAID, SELFPAY | PROVIDERS: PCP Nurse Practitioner; Visit Provider Nurse Practitioner | DX: E11.22 Type 2 diabetes mellitus with diabetic chronic kidney disease; N18.2 Chronic kidney disease, stage 2 (mild); Z79.4 Long term (current) use of insulin; I12.9 Hypertensive chronic kidney disease with stage 1 through stage 4 chronic kidney disease, or unspecified chronic kidney disease | CPT/HCPCS: 80053; 80061; 83036; 85025 ==

== ENCOUNTER → 2021-03-05 14:04 | Outpatient (BNVA) | payer MEDICARE, MEDICAID, SELFPAY | PROVIDERS: PCP Nurse Practitioner; Visit Provider Nurse Practitioner | DX: I10 Essential (primary) hypertension (principal); E11.22 Type 2 diabetes mellitus with diabetic chronic kidney disease; N18.2 Chronic kidney disease, stage 2 (mild); Z79.4 Long term (current) use of insulin | CPT/HCPCS: 80053; 80061; 83036; 85025 ==

== ENCOUNTER → 2021-03-18 13:44 | Outpatient (BNVA) | payer MEDICARE, MEDICAID, SELFPAY | PROVIDERS: PCP Nurse Practitioner; Visit Provider Urology | DX: N40.0 Benign prostatic hyperplasia without lower urinary tract symptoms (principal) | CPT/HCPCS: 81003 ==

== ENCOUNTER → 2021-05-22 08:11 | Outpatient (BNVA) | payer MEDICARE, MEDICAID, SELFPAY | PROVIDERS: PCP Nurse Practitioner; Visit Provider Specialist | DX: L82.0 Inflamed seborrheic keratosis (principal); E11.9 Type 2 diabetes mellitus without complications | CPT/HCPCS: 80053; 80061; 82785; 83036; 85025; 86003 ==

== ENCOUNTER → 2021-05-23 11:08 | Outpatient (BNVA) | payer MEDICARE, MEDICAID, SELFPAY | PROVIDERS: PCP Nurse Practitioner | DX: I25.10 Atherosclerotic heart disease of native coronary artery without angina pectoris (principal); Z95.5 Presence of coronary angioplasty implant and graft; Z95.0 Presence of cardiac pacemaker; Z79.82 Long term (current) use of aspirin; I25.41 Coronary artery aneurysm; J44.9 Chronic obstructive pulmonary disease, unspecified; E78.5 Hyperlipidemia, unspecified; Z79.4 Long term (current) use of insulin; E11.22 Type 2 diabetes mellitus with diabetic chronic kidney disease; I13.0 Hypertensive heart and chronic kidney disease with heart failure and stage 1 through stage 4 chronic kidney disease, or unspecified chronic kidney disease; N18.2 Chronic kidney disease, stage 2 (mild) | CPT/HCPCS: 99214 ==

== ENCOUNTER 2021-06-04 10:13 | Emergency (ER) | payer MEDICARE, MEDICAID, SELFPAY ==
[2021-06-04 10:14] VITALS: BP 122/80; PULSE 84; RESP 19; TEMP 36.8; O2SAT 98; BMI 25.1
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
[2021-06-04 10:23] VITALS: BP 122/80; PULSE 83; O2SAT 100
--- NOTE | 2021-06-04 10:26 | ECG_ITS ---
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 Measurements Intervals [place] Rate: 86 P: 60 HI: 207 QRS: -68 QRSD: 184 T: 112 QT: 446 QTc: 534 Interpretive Statements ELECTRONIC VENTRICULAR PACEMAKER Compared to ECG 03/21/2020 11:38:44 No significant changes Electronically Signed On 06-04-2021 18:43:03 CDT by Jose Mendiola M.D. [id number] f
--- NOTE | 2021-06-04 10:27 | XRR_ITS ---
PROCEDURE INFORMATION: Exam: XR Chest Exam date and time: 06/04/2021 10:27 AM Age: 80 years old Clinical indication: Shortness of breath; Angina pectoris; Prior surgery; Surgery type: Heart pacemaker; Patient HX: Chest pain and SOB earlier feels better now; Additional info: Dyspnea/cough TECHNIQUE: Imaging protocol: XR of the chest. Views: 1 view. COMPARISON: CR XR chest 1V portable [id number] 03/21/2020 11:20 AM FINDINGS: Lungs: Unremarkable. No consolidation. Pleural spaces: Left lower lobe pleural effusion. No pneumothorax. Heart/Mediastinum: Unremarkable. No cardiomegaly. Bones/joints: Unremarkable. A cardiac device is seen in the left anterior chest XR/XR chest 1V portable [id number] IMPRESSION: 1. Left lower lobe pleural effusion new since prior 2. Stable cardiac device left anterior chest. 3. Otherwise negative chest examination
[2021-06-04 10:38] LABS: Basophils # 0.1 10^3/uL (0.0-0.1); Basophils % 0.9 %; Eosinophils # 0.4 10^3/uL (0.0-0.8); Eosinophils % 6.3 %; Hemoglobin 14.1 g/dL (11.7-16.6); Lymphocytes # 0.7 10^3/uL (0.8-4.8); Lymphocytes % 10.5 %; Mean Corpuscular HGB Conc 31.3 g/dL (30.0-36.0); Mean Corpuscular Hemoglobin 28.5 pg (28.0-34.0); Mean Corpuscular Volume 91.1 fl (80-94); Mean Platelet Volume 9.2 fL (7.4-10.4); Monocytes # 0.5 10^3/uL (0.2-0.9); Monocytes % 7.2 %; Neutrophils # 5.11 10^3/uL (1.8-7.7); Neutrophils % 74.8 %; Nucleated Red Blood Cells % 0 %; Platelet Count 214 10^3/cmm (130-400); Red Blood Count 4.94 10^6/uL (4.1-5.3); White Blood Count 6.8 10^3/uL (4.0-10.0)
[2021-06-04 10:46] LABS: ABG PCO2 45.8 mmHg (35-45); ABG PH Result 7.44 (7.35-7.45); Alveolar-Arterial Oxygen Gradi 12.1 mmHg (5-10); Arterial Blood Gas Hematocrit 45.2 % (42-52); Base Excess ABG 5.5 mmol/L (-2.0-2.0); Blood Gas Allen Test Pos; Blood Gas Operator Identificat AMH; Blood Gas Sample Site Radial, right; Blood Gas Sample Type Arterial; Carboxyhemoglobin 0.7 %THgb (0.4-20.1); HCO3 ABG 30.7 mmol/L (22-26); HGB O2 Sat 97.2 % (95-100); Ionized Calcium Level - ABG 1.2 mmol/L (1.1-1.4); Methemoglobin 0.9 % (0.4-1.5); Oxygen Device NC; Oxygen Saturation ABG 98.8; Potassium Level - ABG 4.2 mmol/L (3.5-5.0); Total Hemoglobin 14.8 g/dL (14-18)
[2021-06-04 11:04] LABS: Anion Gap 13.5 (5-19); Blood Urea Nitrogen 11 mg/dL (8-23); Calcium 9.4 mg/dL (8.5-10.5); Carbon Dioxide 32 mmol/L (22-29); Chloride 97 mmol/L (98-107); Glucose 146 mg/dL (65-115); Osmolality Calculated 288 mOsm/kg (285-295); Potassium 4.5 mmol/L (3.5-5.1); Sodium 138 mmol/L (136-145)
[2021-06-04 11:23] VITALS: PULSE 86; O2SAT 96
[2021-06-04] MEDS: FUROsemide 10 mg/mL SDV 10mL 60 MG IVP (11:49)
--- NOTE | 2021-06-04 12:21 | PC.PHAR ---
PT HAS HOME HEALTH FROM [facility] -PTS MED LIST FROM HOME HEALTH HAS CRESTOR 40MG DAILY RX LAST FILLED 03/17/21 30D/S [facility] STATES THE REFILL REQUEST WAS DENIED AND STATES HASNT FILLED SINCE FEB-NOTES ARE MADE IN THE PHARMACY COMMENTS
[2021-06-04 12:23] VITALS: PULSE 88; O2SAT 95
[2021-06-04 15:16] LABS: Adenovirus Not Detected (NOT DETECT); Chlamydia Pneumoniae Not Detected (NOT DETECT); Coronavirus 229E,HKU1,NL63,OC4 Not Detected (NOT DETECT); Human Metapneumovirus Not Detected (NOT DETECT); Human Rhinovirus/Enterovirus Not Detected (NOT DETECT); Influenza A Not Detected (NOT DETECT); Influenza A H1 Not Detected (NOT DETECT); Influenza A H1-2009 Not Detected (NOT DETECT); Influenza A H3 Not Detected (NOT DETECT); Influenza B Not Detected (NOT DETECT); Mycoplasma Pneumoniae Not Detected (NOT DETECT); Parainfluenza Virus Type 1 Not Detected (NOT DETECT); Parainfluenza Virus Type 2 Not Detected (NOT DETECT); Parainfluenza Virus Type 3 Not Detected (NOT DETECT); Parainfluenza Virus Type 4 Not Detected (NOT DETECT); Respiratory Syncytial Virus A Not Detected (NOT DETECT); Respiratory Syncytial Virus B Not Detected (NOT DETECT); SARS-COV-2 Not Detected (NOT DETECT)
--- NOTE | 2021-06-09 15:01 | DCPLANNER ---
Addendum entered by Arabella Hernández 06/19/21 08:50: Patient had a follow up appointment scheduled for 06.10.[address] Maxwell at [facility] for pulmonology - patient did attend appointment. Original Note: manager employee relations had message to schedule a follow up appointment for patient with pulmonology. manager employee relations called [facility], spoke with Raine Quinn, gave clinic patients information. A follow up appointment was scheduled for Thursday, June 10, 2021 at 10:[address] Maxwell. manager employee relations called patient and gave patient the appointment information.
== END 2021-06-04 15:20 | disposition home or self-care (01) ==
PROVIDERS: Emergency Provider Family Medicine; PCP Nurse Practitioner
DX: J44.1 Chronic obstructive pulmonary disease with (acute) exacerbation (principal); J90 Pleural effusion, not elsewhere classified; Z79.82 Long term (current) use of aspirin; Z79.4 Long term (current) use of insulin; I11.0 Hypertensive heart disease with heart failure; I50.9 Heart failure, unspecified; Z85.038 Personal history of other malignant neoplasm of large intestine; E11.9 Type 2 diabetes mellitus without complications; E78.5 Hyperlipidemia, unspecified; Z95.0 Presence of cardiac pacemaker; Z20.822 Contact with and (suspected) exposure to COVID-19
CPT/HCPCS: 36600; 71045; 80048; 80051; 82330; 82805; 85025; 87635; 93005; 96374; 99284; J1940

== ENCOUNTER → 2021-06-10 10:58 | Outpatient (BNVA) | payer MEDICARE, MEDICAID, SELFPAY | PROVIDERS: PCP Nurse Practitioner; Visit Provider Internal Medicine Critical Care Medicine | DX: J45.909 Unspecified asthma, uncomplicated (principal); J44.9 Chronic obstructive pulmonary disease, unspecified; I10 Essential (primary) hypertension; K21.9 Gastro-esophageal reflux disease without esophagitis; D50.9 Iron deficiency anemia, unspecified; J90 Pleural effusion, not elsewhere classified; E78.5 Hyperlipidemia, unspecified; E11.8 Type 2 diabetes mellitus with unspecified complications | CPT/HCPCS: 71046; 99213 ==

== ENCOUNTER 2021-06-10 11:43 | Outpatient (CLI) | payer MEDICARE, MEDICAID, SELFPAY | END 2021-06-10 11:44 | disposition home or self-care (01) | LOC: RAD 11:45 | PROVIDERS: PCP Nurse Practitioner; Visit Provider Family Medicine | DX: J90 Pleural effusion, not elsewhere classified (principal); J45.909 Unspecified asthma, uncomplicated; J44.9 Chronic obstructive pulmonary disease, unspecified; K21.9 Gastro-esophageal reflux disease without esophagitis; D50.9 Iron deficiency anemia, unspecified; E78.5 Hyperlipidemia, unspecified; E11.8 Type 2 diabetes mellitus with unspecified complications | CPT/HCPCS: 99213 ==

== ENCOUNTER → 2021-07-08 14:36 | Outpatient (BNVA) | payer MEDICARE, MEDICAID, SELFPAY | PROVIDERS: PCP Nurse Practitioner; Visit Provider Nurse Practitioner | DX: J44.9 Chronic obstructive pulmonary disease, unspecified (principal); E11.22 Type 2 diabetes mellitus with diabetic chronic kidney disease; I12.9 Hypertensive chronic kidney disease with stage 1 through stage 4 chronic kidney disease, or unspecified chronic kidney disease; N18.2 Chronic kidney disease, stage 2 (mild); Z79.4 Long term (current) use of insulin | CPT/HCPCS: 85025 ==

== ENCOUNTER → 2021-07-17 13:49 | Outpatient (BNVA) | payer MEDICARE, MEDICAID, SELFPAY | PROVIDERS: PCP Nurse Practitioner; Visit Provider Nurse Practitioner | DX: I50.9 Heart failure, unspecified (principal); J44.9 Chronic obstructive pulmonary disease, unspecified; J30.9 Allergic rhinitis, unspecified | CPT/HCPCS: 83880; 85025 ==

== ENCOUNTER → 2021-08-21 09:44 | Outpatient (BNVA) | payer MEDICARE, MEDICAID, SELFPAY | PROVIDERS: PCP Nurse Practitioner; Visit Provider Nurse Practitioner | DX: I10 Essential (primary) hypertension (principal); E11.9 Type 2 diabetes mellitus without complications; J44.9 Chronic obstructive pulmonary disease, unspecified | CPT/HCPCS: 80053; 80061; 83036; 85025 ==

== ENCOUNTER 2021-09-16 10:10 | Emergency (ER) | payer MEDICARE, MEDICAID, SELFPAY ==
--- NOTE | 2021-09-16 10:16 | ECG_ITS ---
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 Measurements Intervals [place] Rate: 90 P: 61 AR: 190 QRS: -58 QRSD: 213 T: 117 QT: 453 QTc: 557 Interpretive Statements ELECTRONIC VENTRICULAR PACEMAKER ABNORMAL RHYTHM ECG Compared to ECG 06/04/2021 09:29:51 No significant changes Electronically Signed On 09-16-2021 20:06:09 CDT by Alli Quinn M.D. [id number]
--- NOTE | 2021-09-16 10:16 | XR_ITS ---
WS: [id number] XR chest 1V portable [id number] REASON FOR EXAM: dyspnea/cough FINDINGS: The chest is unchanged compared to previous examination of 06/10/2021. Cardiac device over the left anterolateral chest wall with transvenous left subclavian vein leads to the right atrium and right ventricular apex. Mild tortuosity the thoracic aorta with normal heart size. No acute pulmonary parenchymal or pleural abnormality. Chronic pleural changes on the left. Moderate to severe degenerative spondylosis in the mid and lower thoracic spine. XR/XR chest 1V portable [id number] IMPRESSION: No acute chest abnormality.
[2021-09-16 10:25] VITALS: PULSE 86; RESP 18; TEMP 36.8; O2SAT 100; BMI 25.0
[2021-09-16 10:27] LABS: Basophils # 0.1 10^3/uL (0.0-0.1); Basophils % 0.9 %; Eosinophils # 1.3 10^3/uL (0.0-0.8); Eosinophils % 14.8 %; Hematocrit 47.1 % (42.0-52.0); Hemoglobin 15.2 g/dL (11.7-16.6); Lymphocytes # 1.1 10^3/uL (0.8-4.8); Lymphocytes % 12.6 %; Mean Corpuscular HGB Conc 32.3 g/dL (30.0-36.0); Mean Corpuscular Hemoglobin 27.5 pg (28.0-34.0); Mean Corpuscular Volume 85.3 fl (80-94); Mean Platelet Volume 8.7 fL (7.4-10.4); Monocytes # 0.9 10^3/uL (0.2-0.9); Neutrophils # 5.48 10^3/uL (1.8-7.7); Neutrophils % 61.5 %; Nucleated Red Blood Cells % 0 %; Platelet Count 270 10^3/cmm (130-400); Red Blood Count 5.52 10^6/uL (4.1-5.3); Red Cell Distribution Width 13.7 % (12.1-15.1); White Blood Count 8.9 10^3/uL (4.0-10.0)
[2021-09-16] MEDS: ipratropium-albuterol 3 mL Neb INHALATION (10:30)
[2021-09-16 10:31] VITALS: PULSE 89; RESP 20; O2SAT 99
[2021-09-16 10:40] VITALS: PULSE 79; RESP 20; O2SAT 98
[2021-09-16 10:47] LABS: Alanine Aminotransferase 17 U/L (0-41); Albumin Level 3.4 g/dL (3.5-5.2); Alkaline Phosphatase 99 IU/L (40-130); Anion Gap 15.5 (5-19); Aspartate Amino Transferase 19 U/L (0-40); Blood Urea Nitrogen 16 mg/dL (8-23); Calcium 8.8 mg/dL (8.5-10.5); Carbon Dioxide 32 mmol/L (22-29); Chloride 94 mmol/L (98-107); Globulin 3.9 g/dL (1.3-4.6); Glucose 122 mg/dL (65-115); Osmolality Calculated 286 mOsm/kg (285-295); Potassium 4.5 mmol/L (3.5-5.1); Sodium 137 mmol/L (136-145); Total Bilirubin 0.6 mg/dL (0.15-1.2); Total Protein 7.3 g/dL (6.6-8.7)
[2021-09-16 10:49] LABS: ABG PCO2 46.6 mmHg (35-45); ABG PH Result 7.44 (7.35-7.45); Arterial Blood Gas Hematocrit 47.9 % (42-52); Base Excess ABG 6.6 mmol/L (-2.0-2.0); Blood Gas Allen Test Pos; Blood Gas Sample Site Radial, right; Blood Gas Sample Type Arterial; Carboxyhemoglobin 0.7 %THgb (0.4-20.1); HCO3 ABG 31.9 mmol/L (22-26); HGB O2 Sat 94.4 % (95-100); Ionized Calcium Level - ABG 1.2 mmol/L (1.1-1.4); Methemoglobin 0.9 % (0.4-1.5); Oxygen Device NC; PO2 ABG 78.5 mmHg (80.0-100.0); Potassium Level - ABG 4.1 mmol/L (3.5-5.0); Total Hemoglobin 15.6 g/dL (14-18)
[2021-09-16 10:50] LABS: Alveolar-Arterial Oxygen Gradi 8.5 mmHg (5-10)
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
== END 2021-09-16 13:55 | disposition home or self-care (01) ==
PROVIDERS: Emergency Provider Family Medicine; PCP Nurse Practitioner
DX: J44.1 Chronic obstructive pulmonary disease with (acute) exacerbation (principal); Z79.82 Long term (current) use of aspirin; Z79.4 Long term (current) use of insulin; I11.0 Hypertensive heart disease with heart failure; I50.9 Heart failure, unspecified; Z85.038 Personal history of other malignant neoplasm of large intestine; E11.9 Type 2 diabetes mellitus without complications; E78.5 Hyperlipidemia, unspecified; Z95.0 Presence of cardiac pacemaker
CPT/HCPCS: 36600; 71045; 80051; 80053; 82330; 82805; 85025; 93005; 94640; 96374; 99284; J2930

== ENCOUNTER → 2021-10-10 10:58 | Outpatient (BNVA) | payer MEDICARE, MEDICAID, SELFPAY | PROVIDERS: PCP Nurse Practitioner; Visit Provider Internal Medicine Critical Care Medicine | DX: J45.909 Unspecified asthma, uncomplicated (principal) | CPT/HCPCS: 99214 ==

== ENCOUNTER → 2021-11-11 15:43 | Outpatient (BNVA) | payer MEDICARE, MEDICAID, SELFPAY | PROVIDERS: PCP Nurse Practitioner; Visit Provider Nurse Practitioner | DX: E78.5 Hyperlipidemia, unspecified (principal); E11.22 Type 2 diabetes mellitus with diabetic chronic kidney disease; Z79.4 Long term (current) use of insulin; I12.9 Hypertensive chronic kidney disease with stage 1 through stage 4 chronic kidney disease, or unspecified chronic kidney disease; N18.2 Chronic kidney disease, stage 2 (mild); J44.9 Chronic obstructive pulmonary disease, unspecified; K21.9 Gastro-esophageal reflux disease without esophagitis; F41.1 Generalized anxiety disorder; J30.9 Allergic rhinitis, unspecified; J30.89 Other allergic rhinitis | CPT/HCPCS: 80053; 80061; 83036; 85025 ==

== ENCOUNTER → 2021-11-21 10:13 | Outpatient (BNVA) | payer MEDICARE, MEDICAID, SELFPAY | PROVIDERS: PCP Nurse Practitioner; Visit Provider Internal Medicine | DX: I25.10 Atherosclerotic heart disease of native coronary artery without angina pectoris (principal); I13.0 Hypertensive heart and chronic kidney disease with heart failure and stage 1 through stage 4 chronic kidney disease, or unspecified chronic kidney disease; E11.22 Type 2 diabetes mellitus with diabetic chronic kidney disease; N18.2 Chronic kidney disease, stage 2 (mild); I50.9 Heart failure, unspecified; Z79.4 Long term (current) use of insulin; Z79.84 Long term (current) use of oral hypoglycemic drugs; Z95.5 Presence of coronary angioplasty implant and graft; Z95.0 Presence of cardiac pacemaker; I25.41 Coronary artery aneurysm; E78.5 Hyperlipidemia, unspecified; J44.9 Chronic obstructive pulmonary disease, unspecified | CPT/HCPCS: 93280; 99214 ==

== ENCOUNTER → 2021-12-01 16:49 | Outpatient (BNVA) | payer MEDICARE, MEDICAID, SELFPAY | PROVIDERS: PCP Nurse Practitioner; Visit Provider Nurse Practitioner | DX: L98.9 Disorder of the skin and subcutaneous tissue, unspecified (principal) | CPT/HCPCS: 88304 ==

== ENCOUNTER → 2022-01-30 12:09 | Outpatient (BNVA) | payer MEDICARE, MEDICAID, SELFPAY | PROVIDERS: PCP Nurse Practitioner; Visit Provider Nurse Practitioner | DX: I13.0 Hypertensive heart and chronic kidney disease with heart failure and stage 1 through stage 4 chronic kidney disease, or unspecified chronic kidney disease (principal); E11.22 Type 2 diabetes mellitus with diabetic chronic kidney disease; I50.9 Heart failure, unspecified; N18.2 Chronic kidney disease, stage 2 (mild); Z79.4 Long term (current) use of insulin | CPT/HCPCS: 80053; 83036; 83880 ==

== ENCOUNTER → 2022-04-09 13:23 | Outpatient (BNVA) | payer MEDICARE, MEDICAID, SELFPAY | PROVIDERS: PCP Nurse Practitioner; Visit Provider Nurse Practitioner | DX: I50.9 Heart failure, unspecified (principal) | CPT/HCPCS: 80048; 83880; 85025 ==

== ENCOUNTER 2022-04-16 16:46 | Emergency (ER) | payer MEDICARE, MEDICAID, SELFPAY ==
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
--- NOTE | 2022-04-16 16:50 | XRR_ITS ---
PROCEDURE INFORMATION: Exam: XR Chest Exam date and time: 04/16/2022 5:01 PM Age: 81 years old Clinical indication: Shortness of breath; Additional info: SOB TECHNIQUE: Imaging protocol: Radiologic exam of the chest. Views: 1 view. COMPARISON: CR XR chest 1V portable [id number] 09/16/2021 10:43 AM FINDINGS: Tubes, catheters and devices: Intact dual lead left subclavian pacemaker. Lungs: Chronic scarring in the left lung base and lingula. The lungs are otherwise clear. No consolidation. Pleural spaces: Unremarkable. No pleural effusion. No pneumothorax. Heart/Mediastinum: Unremarkable. No cardiomegaly. Diaphragm: Mild elevation of the left diaphragm. Bones/joints: Unremarkable. XR/XR chest 1V portable [id number] IMPRESSION: 1. No acute findings.
--- NOTE | 2022-04-16 16:50 | ECG_ITS ---
[facility] Test Date: 2022-04-16 Pat Name: Andrew Sainz Department: Room: Gender: Male Dog Hair Clipper: : 1940 Requested By: Robin Dial Order Number: [id number] Babatunde MD: Lissette Swain M.D. Measurements Intervals [place] Rate: 80 P: 113 VT: 179 QRS: -64 QRSD: 200 T: 111 QT: 479 QTc: 555 Interpretive Statements ELECTRONIC ATRIAL PACEMAKER ELECTRONIC VENTRICULAR PACEMAKER ABNORMAL RHYTHM ECG Compared to ECG 09/16/2021 10:24:41 No significant changes Electronically Signed On 04-16-2022 23:45:57 IT QUALITY ASSURANCE ANALYST by Lissette Swain M.D. [email or web address] Labs/store/[id number] f
[2022-04-16 16:53] VITALS: BP 108/69; PULSE 74; RESP 14; TEMP 36.5; O2SAT 97; BMI 23.6
[2022-04-16 16:58] LABS: ABG PCO2 48.3 mmHg (35-45); ABG PH Result 7.54 (7.35-7.45); Arterial Blood Gas Hematocrit 52.6 % (42-52); Base Excess ABG 15.8 mmol/L (-2.0-2.0); Blood Gas Allen Test Pos; Blood Gas Operator Identificat WALCI; Blood Gas Sample Site Radial, right; Blood Gas Sample Type Arterial; Carboxyhemoglobin 0.3 %THgb (0.4-20.1); HCO3 ABG 41.1 mmol/L (22-26); HGB O2 Sat 97.4 % (95-100); Methemoglobin 0.4 % (0.4-1.5); Oxygen Device NC; Total Hemoglobin 17.2 g/dL (14-18)
[2022-04-16] MEDS: ipratropium 0.5 mg/2.5 mL Neb INHALATION (17:03)
[2022-04-16] MEDS: albuterol 2.5 mg/3 mL Neb INHALATION (17:03)
[2022-04-16 17:04] VITALS: PULSE 79; RESP 18; O2SAT 100
[2022-04-16 17:04] LABS: Basophils # 0.1 10^3/uL (0.0-0.1); Basophils % 0.6 %; Eosinophils % 0.2 %; Hematocrit 51.2 % (42.0-52.0); Hemoglobin 16.4 g/dL (11.7-16.6); Lymphocytes # 1.1 10^3/uL (0.8-4.8); Lymphocytes % 10.8 %; Mean Corpuscular Hemoglobin 28.4 pg (28.0-34.0); Mean Corpuscular Volume 88.7 fl (80-94); Mean Platelet Volume 8.8 fL (7.4-10.4); Monocytes # 0.8 10^3/uL (0.2-0.9); Monocytes % 7.7 %; Neutrophils # 7.96 10^3/uL (1.8-7.7); Neutrophils % 80.4 %; Nucleated Red Blood Cells % 0 %; Platelet Count 274 10^3/cmm (130-400); Red Blood Count 5.77 10^6/uL (4.1-5.3); Red Cell Distribution Width 13.6 % (12.1-15.1); White Blood Count 9.9 10^3/uL (4.0-10.0)
[2022-04-16 17:08] VITALS: PULSE 75
[2022-04-16 17:32] LABS: Lactic Sepsis W/Reflex 1.3 mmol/L (0.5-2.2)
[2022-04-16 17:34] LABS: Troponin(5th) Baseline 82 ng/L (0-15)
[2022-04-16 17:41] LABS: Alanine Aminotransferase 25 U/L (0-41); Albumin Level 3.7 g/dL (3.5-5.2); Alkaline Phosphatase 86 U/L (40-130); Anion Gap 13.2 (5-19); Aspartate Amino Transferase 26 U/L (0-40); Blood Urea Nitrogen 58 mg/dL (8-23); Calcium 9.9 mg/dL (8.5-10.5); Carbon Dioxide 39 mmol/L (22-29); Chloride 91 mmol/L (98-107); Creatinine Clr Calc Pharmacy 42.1349; Globulin 2.6 g/dL (1.3-4.6); Glucose 158 mg/dL (65-115); NT Pro B Type Natriuretic Pept 4178 pg/mL (0-450); Osmolality Calculated 309 mOsm/kg (285-295); Potassium 3.2 mmol/L (3.5-5.1); Sodium 140 mmol/L (136-145); Total Bilirubin 0.8 mg/dL (0.15-1.2); Total Protein 6.3 g/dL (6.6-8.7)
[2022-04-16 17:56] LABS: Influenza A by IFA negative (Negative); Influenza B by IFA negative (Negative); SARS Covid-2 Antigen negative (Negative)
--- NOTE | 2022-04-16 18:50 | ECG_ITS ---
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 Measurements Intervals [place] Rate: 69 P: 15 NC: 173 QRS: -62 QRSD: 238 T: 115 QT: 521 QTc: 558 Interpretive Statements ELECTRONIC ATRIAL PACEMAKER ELECTRONIC VENTRICULAR PACEMAKER ABNORMAL RHYTHM ECG Compared to ECG 04/16/2022 16:51:11 No significant changes Electronically Signed On 04-16-2022 23:48:29 STRAIGHT SLICING MACHINE OPERATOR by Lissette Swain M.D. [email or web address] [email or web address] Therapeutics/store/[id number]
[2022-04-16 19:03] LABS: Troponin 5 2HR 84.98 ng/L (0-15)
[2022-04-16 19:06] LABS: Troponin 5 2HR Delta 2.98 ABS# (0-10)
[2022-04-16] MEDS: sodium chloride 0.9% 500 ML IV (19:31)
[2022-04-16] MEDS: potassium chloride ER 20 mEq Tablet 40 MEQ PO (19:31)
[2022-04-16 21:42] VITALS: BP 123/70; PULSE 77; RESP 16; TEMP 36.7; O2SAT 100
== END 2022-04-16 21:43 | disposition home or self-care (01) ==
PROVIDERS: Emergency Provider Emergency Medicine; PCP Nurse Practitioner
DX: J96.11 Chronic respiratory failure with hypoxia (principal); Z99.81 Dependence on supplemental oxygen; E87.6 Hypokalemia; E86.0 Dehydration; Z95.0 Presence of cardiac pacemaker; Z79.82 Long term (current) use of aspirin; Z79.4 Long term (current) use of insulin; Z20.822 Contact with and (suspected) exposure to COVID-19; I11.0 Hypertensive heart disease with heart failure; I50.9 Heart failure, unspecified; Z85.038 Personal history of other malignant neoplasm of large intestine; J44.9 Chronic obstructive pulmonary disease, unspecified; E11.9 Type 2 diabetes mellitus without complications; E78.5 Hyperlipidemia, unspecified; I10 Essential (primary) hypertension
CPT/HCPCS: 36415; 36600; 71045; 80053; 82805; 83605; 83880; 84484; 85025; 87426; 87804; 93005; 94640; 96361; 96374; 99285; J2930; J7040; J7613; J7644

== ENCOUNTER → 2022-05-05 10:42 | Outpatient (BNVA) | payer MEDICARE, MEDICAID, SELFPAY | PROVIDERS: PCP Nurse Practitioner; Visit Provider Nurse Practitioner | DX: E11.9 Type 2 diabetes mellitus without complications (principal); E78.5 Hyperlipidemia, unspecified | CPT/HCPCS: 80053; 80061; 83036; 83880; 85025 ==

== ENCOUNTER → 2022-05-08 09:18 | Outpatient (BNVA) | payer MEDICARE, MEDICAID, SELFPAY | PROVIDERS: PCP Nurse Practitioner; Visit Provider Internal Medicine Pulmonary Disease | DX: J45.50 Severe persistent asthma, uncomplicated (principal); J30.9 Allergic rhinitis, unspecified; R60.0 Localized edema; Z79.52 Long term (current) use of systemic steroids | CPT/HCPCS: 99214 ==

== ENCOUNTER → 2022-05-22 10:03 | Outpatient (BNVA) | payer MEDICARE, MEDICAID, SELFPAY | PROVIDERS: PCP Nurse Practitioner; Visit Provider Internal Medicine | DX: I25.10 Atherosclerotic heart disease of native coronary artery without angina pectoris (principal); Z95.5 Presence of coronary angioplasty implant and graft; Z95.0 Presence of cardiac pacemaker; I25.41 Coronary artery aneurysm; E78.5 Hyperlipidemia, unspecified; J44.9 Chronic obstructive pulmonary disease, unspecified; E11.22 Type 2 diabetes mellitus with diabetic chronic kidney disease; I13.0 Hypertensive heart and chronic kidney disease with heart failure and stage 1 through stage 4 chronic kidney disease, or unspecified chronic kidney disease; N18.2 Chronic kidney disease, stage 2 (mild); I50.9 Heart failure, unspecified; Z79.4 Long term (current) use of insulin | CPT/HCPCS: 99214 ==

== ENCOUNTER → 2022-07-15 08:38 | Outpatient (BNVA) | payer MEDICARE, MEDICAID, SELFPAY | PROVIDERS: PCP Nurse Practitioner; Visit Provider Nurse Practitioner | DX: I11.0 Hypertensive heart disease with heart failure (principal); I50.9 Heart failure, unspecified; E11.9 Type 2 diabetes mellitus without complications; E78.5 Hyperlipidemia, unspecified | CPT/HCPCS: 80053; 80061; 83036; 83880; 85025 ==

== ENCOUNTER → 2022-09-03 08:26 | Outpatient (BNVA) | payer MEDICARE, MEDICAID, SELFPAY | PROVIDERS: PCP Nurse Practitioner; Visit Provider Internal Medicine Pulmonary Disease | DX: J45.50 Severe persistent asthma, uncomplicated (principal); R60.0 Localized edema; Z79.899 Other long term (current) drug therapy | CPT/HCPCS: 99214 ==

== ENCOUNTER → 2022-10-22 11:08 | Outpatient (BNVA) | payer MEDICARE, MEDICAID, SELFPAY | PROVIDERS: PCP Nurse Practitioner; Visit Provider Nurse Practitioner | DX: E11.9 Type 2 diabetes mellitus without complications (principal) | CPT/HCPCS: 80053; 80061; 83036; 85025 ==

== ENCOUNTER → 2022-10-23 09:32 | Outpatient (BNVA) | payer MEDICARE, MEDICAID, SELFPAY | PROVIDERS: PCP Nurse Practitioner; Visit Provider Internal Medicine | DX: I25.10 Atherosclerotic heart disease of native coronary artery without angina pectoris (principal); Z95.5 Presence of coronary angioplasty implant and graft; Z95.0 Presence of cardiac pacemaker; I25.41 Coronary artery aneurysm; R06.02 Shortness of breath; E78.5 Hyperlipidemia, unspecified; J44.9 Chronic obstructive pulmonary disease, unspecified; I13.0 Hypertensive heart and chronic kidney disease with heart failure and stage 1 through stage 4 chronic kidney disease, or unspecified chronic kidney disease; E11.22 Type 2 diabetes mellitus with diabetic chronic kidney disease; N18.2 Chronic kidney disease, stage 2 (mild); I50.9 Heart failure, unspecified; Z79.4 Long term (current) use of insulin | CPT/HCPCS: 99214 ==

== ENCOUNTER → 2023-01-18 14:41 | Outpatient (BNVA) | payer MEDICARE, MEDICAID, SELFPAY | PROVIDERS: PCP Nurse Practitioner; Visit Provider Nurse Practitioner | DX: E11.9 Type 2 diabetes mellitus without complications (principal) | CPT/HCPCS: 80053 ==

== ENCOUNTER → 2023-02-22 13:37 | Outpatient (BNVA) | payer MEDICARE, MEDICAID, SELFPAY | PROVIDERS: PCP Nurse Practitioner; Visit Provider Surgery | DX: Z12.11 Encounter for screening for malignant neoplasm of colon (principal); Z99.81 Dependence on supplemental oxygen; Z85.038 Personal history of other malignant neoplasm of large intestine | CPT/HCPCS: 99024; 99204 ==

== ENCOUNTER → 2023-04-07 14:39 | Outpatient (BNVA) | payer MEDICARE, MEDICAID, SELFPAY | PROVIDERS: PCP Nurse Practitioner; Visit Provider Nurse Practitioner | DX: J44.9 Chronic obstructive pulmonary disease, unspecified (principal); E11.22 Type 2 diabetes mellitus with diabetic chronic kidney disease; N18.2 Chronic kidney disease, stage 2 (mild); Z79.4 Long term (current) use of insulin; R53.1 Weakness | CPT/HCPCS: 71046; 80053; 80061; 83036; 85025; 87486; 87581; 87633 ==

== ENCOUNTER 2023-04-10 04:17 | Inpatient (IN) | payer MEDICARE, MEDICAID, SELFPAY ==
[2023-04-10] VITALS (63 sets, daily range): BP systolic 89–144; BP diastolic 45–85; PULSE 63–104; RESP 18–38; TEMP 36.6–36.9; O2SAT 90–100; BMI 25.1
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
--- NOTE | 2023-04-10 04:29 | ECG_ITS ---
[facility] Test Date: 2023-04-10 Pat Name: Andrew Sainz Department: Room: [facility] Gender: Male Electrical Assemblies Supervisor: : [id number] Requested By: Sundeep Resendez Order Number: [id number] Babatunde MD: Ananda Gardner M.D. Measurements Intervals [place] Rate: 97 P: 241 MD: 183 QRS: -76 QRSD: 181 T: 113 QT: 414 QTc: 528 Interpretive Statements ELECTRONIC VENTRICULAR PACEMAKER ABNORMAL RHYTHM ECG Compared to ECG 04/16/2022 18:50:31 Atrial-paced complex(es) or rhythm no longer present Electronically Signed On 04-10-2023 9:44:32 INSIGHTS MANAGER by Ananda Gardner M.D. [id number]
[2023-04-10] MEDS: methylPREDNISolone sod succ 125 mg/2 mL INJ IV (04:35)
[2023-04-10] MEDS: ipratropium-albuterol 3 mL Neb INHALATION ×6 (04:42→23:51)
[2023-04-10] MEDS: piperacillin-tazobactam 3.375 GM in sodium chloride 0.9% (plus) 50 ML IV ×3 (04:45→17:59)
[2023-04-10 04:46] LABS: ABG PCO2 42.4 mmHg (35-45); ABG PH Result 7.45 (7.35-7.45); Arterial Blood Gas Hematocrit 46.9 % (42-52); Base Excess ABG 5.1 mmol/L (-2.0-2.0); Blood Gas Allen Test Pos; Blood Gas Sample Site Radial, right; Blood Gas Sample Type Arterial; Carboxyhemoglobin 0.8 %THgb (0.4-20.1); HCO3 ABG 29.7 mmol/L (22-26); HGB O2 Sat 96.2 % (95-100); Methemoglobin 0.4 % (0.4-1.5); Oxygen Device BIPAP; PO2 ABG 96.6 mmHg (80.0-100.0); PO2 FiO2 Ratio Arterial Blood 0; Total Hemoglobin 15.3 g/dL (14-18)
[2023-04-10] MEDS: vancomycin 1,000 MG in sodium chloride 0.9% 250 ML 250 MG IV (05:11)
[2023-04-10 05:34] LABS: SARS Covid-2 Antigen negative (Negative)
[2023-04-10 05:46] LABS: Basophils % 0.2 %; Hematocrit 43.3 % (37-53); Lymphocytes # 0.7 10^3/uL (0.8-4.8); Lymphocytes % 5.1 %; Mean Corpuscular HGB Conc 32.6 g/dL (30-55); Mean Corpuscular Hemoglobin 28.1 pg (27-33); Mean Corpuscular Volume 86.3 fl (82-101); Monocytes # 0.8 10^3/uL (0.2-0.9); Monocytes % 5.6 %; Neutrophils # 12.76 10^3/uL (1.8-7.7); Neutrophils % 88.7 %; Nucleated Red Blood Cells % 0 %; Platelet Count 198 10^3/cmm (157-399); Red Blood Count 5.02 10^6/uL (3.85-5.65); Red Cell Distribution Width 14.6 % (12.1-15.1); White Blood Count 14.39 10^3/uL (3.29-11.43)
[2023-04-10 05:46] LABS: Influenza A by IFA negative (Negative); Influenza B by IFA negative (Negative)
[2023-04-10 05:53] LABS: INR 1.04 (0.8-1.2)
[2023-04-10 06:11] LABS: Alanine Aminotransferase 14 U/L (0-41); Albumin Level 3.1 g/dL (3.5-5.2); Alkaline Phosphatase 74 U/L (40-130); Anion Gap 15.9 (5-19); Aspartate Amino Transferase 22 U/L (0-40); Blood Urea Nitrogen 17 mg/dL (8-23); Calcium 8.4 mg/dL (8.5-10.5); Carbon Dioxide 31 mmol/L (22-29); Chloride 96 mmol/L (98-107); Globulin 3.5 g/dL (1.3-4.6); Glucose 134 mg/dL (65-115); NT Pro B Type Natriuretic Pept 10305 pg/mL (0-450); Osmolality Calculated 292 mOsm/kg (285-295); Potassium 3.9 mmol/L (3.5-5.1); Sodium 139 mmol/L (136-145); Total Bilirubin 0.7 mg/dL (0.15-1.2); Total Protein 6.6 g/dL (6.6-8.7)
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
[2023-04-10 07:48] LABS: Lactic Sepsis W/Reflex 1.5 mmol/L (0.5-2.2)
[2023-04-10 07:51] LABS: Troponin(5th) Baseline 41 ng/L (0-15)
--- NOTE | 2023-04-10 08:09 | PC.PHAR ---
pt states he has home health but doesnt remember the name of the company-pt could verify his otc meds and his semaglutide and fasenra-pt states he is not taking mag ox ext shows last filled 01/18/23 90d/s-pt states he doesnt use his novolog flexpen u-100 ext doesnt show when last filled-medications entered are from what the pt states he takes and what ext med history shows has been filled recently
--- NOTE | 2023-04-10 08:12 | USCV_ITS ---
Andrew Sainz Age: 82 Gender: M : 1940 Exam Date: 04/10/2023 12:23 Ordering Phys: Sundeep Resendez MD Technologist: JOSÉ Exam Location: [facility] [place] Indication: sob BP: 113 / 61 HR: 134 Rhythm: Other Technical Quality: Poor MEASUREMENTS (Male / Female) Normal Values 2D ECHO LVOT Diameter 2.1 cm LV Ejection Fraction MOD 2C 31.6 % LV Ejection Fraction 2C AL 30.7 % LA Diameter 4.1 cm LA Width 3.3 cm LA Height 5.4 cm RA Width 3.7 cm RA Height 5.0 cm Aorta at Sinotubular Diameter 2.9 cm IVC Diameter 1.6 cm M-MODE Aortic Annulus Diameter 3.0 cm LA Ao Ratio MM 1.3 MV E Point Septal Separation 1.0 cm DOPPLER AV Peak Velocity 56.0 cm/s LVOT Peak Velocity 52.0 cm/s AV Area Cont Eq vti 3.4 cm squared AV Area Cont Eq pk 3.1 cm squared MV Peak Velocity 97.0 cm/s MV Area PHT 5.5 cm squared Mitral E to A Ratio 1.4 MV E' Velocity 73.0 cm/s TR Peak Velocity 105.5 cm/s TR Peak Gradient 4.5 mmHg TR Mean Velocity 82.8 cm/s TR Mean Gradient 2.8 mmHg TR Velocity Time Integral 22.1 cm Right Atrial Pressure 3.0 mmHg Pulmonary Artery Systolic Pressu 7.5 mmHg PV Peak Velocity 101.3 cm/s RV Acceleration Time 0.1 s RV Ejection Time 0.2 s RV AcT/ET 0.4 FINDINGS Left Ventricle Poor quality study. The ventricle is seen primarily in the apical view. There is at least mild left ventricular enlargement. There is global hypokinesis with an ejection fraction approximately 30%. This is a rough estimate. The rhythm appears to be paced. Paradoxical septal motion related to the paced rhythm. Mild left ventricular hypertrophy. Grade I/IV diastolic dysfunction (abnormal relaxation filling pattern), normal to mildly elevated filling pressures. Right Ventricle Normal right ventricular size. Mildly decreased right ventricular systolic function. Normal right ventricular systolic pressure. Catheter/pacemaker wire in the right ventricular cavity. Right Atrium The right atrium is normal in size. Left Atrium The left atrium is normal in size. Mitral Valve Structurally normal mitral valve. Mild mitral valve regurgitation. Aortic Valve Aortic valve not well visualized. Tricuspid Valve Tricuspid valve not well visualized. Pulmonic Valve Pulmonic valve not well visualized. Pericardium Normal pericardium without effusion. Aorta Ascending aorta diameter 3.42 cm IVC Inferior vena cava not visualized. CONCLUSIONS Poor quality study. The ventricle is seen primarily in the apical view. There is at least mild left ventricular enlargement. There is global hypokinesis with an ejection fraction approximately 30%. This is a rough estimate. The rhythm appears to be paced. Paradoxical septal motion related to the paced rhythm. Mild left ventricular hypertrophy. Grade I/IV diastolic dysfunction (abnormal relaxation filling pattern), normal to mildly elevated filling pressures. Normal right ventricular size. Mildly decreased right ventricular systolic function. Normal right ventricular systolic pressure. Catheter/pacemaker wire in the right ventricular cavity. Structurally normal mitral valve. Mild mitral valve regurgitation. From the previous study 02/17/2019, the ejection fraction may be diminished from the previously noted 40%, however, the studies are technically extremely difficult and comparison is difficult due to the poor quality study. Dr. Ananda Gardner MD (Electronically Signed) Final Date: 10 April 2023 17:14 S
--- NOTE | 2023-04-10 08:12 | CTR_ITS ---
PROCEDURE INFORMATION: Exam: CTA Chest With Contrast Exam date and time: 04/10/2023 3:43 PM Age: 82 years old Clinical indication: Shortness of breath; Additional info: SOB TECHNIQUE: Imaging protocol: Computed tomographic angiography of the chest with contrast. Exam focused on the arteries. 3D rendering (Not supervised by radiologist): MIP and/or 3D reconstructed images were created by the technologist. Radiation optimization: All CT scans at this facility use at least one of these dose optimization techniques: automated exposure control; mA and/or kV adjustment per patient size (includes targeted exams where dose is matched to clinical indication); or iterative reconstruction. Contrast material: OMNI 350; Contrast volume: 81 ml; Contrast route: INTRAVENOUS (IV); COMPARISON: CT chest abdpel w/*[id number] 09/25/2019 10:45 AM RADIATION DOSE METRICS: Total DLP (mGy-cm): 393.21 FINDINGS: Pulmonary arteries: There is a filling defect in the lingular segmental pulmonary artery extending into the inferior subsegmental branch suggestive of PE (for example, images 230-237 of the axial series 6). Aorta: Borderline aneurysmal dilatation of the descending thoracic aorta measuring 3.1 cm. Mild ectasia of the ascending thoracic aorta to 3.9 cm. No evidence of dissection. Thyroid: Grossly unremarkable. Lungs: Innumerable nodular opacities in both lungs, mid to lower lung predominant with mild ground-glass. No evidence of pulmonary infarct. Pleural spaces: No evidence of pleural effusion. No pneumothorax. Heart: Mild cardiomegaly. No pericardial effusion. Cardiac RV:LV ratio measures approximately 0.7. Left subclavian approach pacemaker. Mediastinal space: There is mediastinal and hilar adenopathy. No evidence of mediastinal mass, fluid collection or hematoma. Bones/joints: No evidence of acute fracture or aggressive osseous lesion. Soft tissues: No evidence of fluid collection or hematoma in the superficial soft tissues. Other findings: No evidence of acute abnormality in the upper abdomen. Punctate nonobstructive left sided renal cyst. CT/CT angio chest PE protcl [id number] IMPRESSION: 1. Acute lingular segmental/subsegmental PE. No pulmonary infarct or evidence of right heart strain. 2. Innumerable mid to lower lung predominant nodular opacities in both lungs with mild ground-glass raising the question of an atypical pneumonia (fungal or mycobacterial) versus metastatic disease in the proper clinical setting. Pulmonary/infectious disease evaluation is recommended. 3. Mediastinal and hilar adenopathy, possibly reactive. Phan spread of neoplasm or a lymphoproliferative process would be difficult to exclude. THIS REPORT CONTAINS FINDINGS THAT MAY BE CRITICAL TO PATIENT CARE. The findings were verbally communicated by telephone with Dr. Marquse at 4:29 PM FIELD CARE MANAGER on 04/10/2023. The findings were acknowledged and understood.
[2023-04-10] MEDS: budesonide 0.5 mg/2 mL Neb 0.25 MG INHALATION (08:24)
--- NOTE | 2023-04-10 08:27 | ECG_ITS ---
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 Measurements Intervals Clear Rate: 82 P: 75 [place]: 196 QRS: -70 QRSD: 204 T: 113 QT: 464 QTc: 544 Interpretive Statements ELECTRONIC VENTRICULAR PACEMAKER ABNORMAL RHYTHM ECG Compared to ECG 04/10/2023 04:29:08 No significant changes Electronically Signed On 04-11-2023 8:34:50 COSTUMER ASSISTANT by Ananda Gardner M.D. [id number]
[2023-04-10] MEDS: metoprolol succinate ER (24 HR) 25 mg Tablet PO (08:39)
[2023-04-10] MEDS: enoxaparin 40 mg/0.4 mL Syringe SUBCUT (08:39)
[2023-04-10] MEDS: atorvastatin 40 mg Tablet PO (08:39)
[2023-04-10] MEDS: sucralfate 1 gm Tablet PO ×2 (08:39→17:59)
[2023-04-10] MEDS: FUROsemide 10 mg/mL SDV 4mL 40 MG IVP (08:39)
[2023-04-10 08:46] LABS: Estmated Average Glucose 128; Hemoglobin A1C 6.1 % (4.0-6.0)
[2023-04-10 08:51] LABS: Procalcitonin 0.75 ng/mL (0-0.5)
[2023-04-10 09:01] LABS: Glucose Point of Care 138 mg/dL (70-110)
[2023-04-10 09:02] LABS: C Reactive Protein 84.8 mg/L (0.0-4.9); Chol HDL Ratio 2.06 mg/dL (1.0-5.00); Cholesterol 107 mg/dL (0-200); HDL Cholesterol 52 mg/dL (60-100); LDL Cholesterol Calculated 45 mg/dL (50-129); LDL HDL Ratio 0.87 RATIO (0.00-3.22); Triglycerides 49 mg/dL (0-150)
[2023-04-10 10:47] LABS: Bilirubin Urine Neg (Negative); Blood Urine Trace (Negative); Glucose Urine UA Norm (Normal); Ketones Urine Negative (Negative); Nitrate Urine Negative (Negative); Protein Urine Neg (Negative); Urine Appearance Clear (CLEAR); Urine Color Straw (Yellow); Urobilinogen Urine Norm (Negative); pH Urine 5 (5-7)
[2023-04-10 10:48] LABS: Add Urine Culture? No; Add Urine Microscopic? YES; Bacteria Urine TRACE /hpf; Hyaline Casts Urine 0-4 /lpf; Leukocyte Esterase Urine Negative (Negative); Mucus Urine TRACE /hpf; RBC Urine RARE /hpf (0-2); WBC Urine RARE /hpf (0-5)
[2023-04-10 11:31] LABS: Glucose Point of Care 187 mg/dL (70-110)
[2023-04-10] MEDS: insulin lispro 100 unit/1 mL SUBCUT ×2 (11:32→17:59)
--- NOTE | 2023-04-10 12:27 | ECG_ITS ---
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 Measurements Intervals [place] Rate: 77 P: 58 [place]: 200 QRS: -68 QRSD: 202 T: 115 QT: 479 QTc: 543 Interpretive Statements ELECTRONIC VENTRICULAR PACEMAKER ABNORMAL RHYTHM ECG Compared to ECG 04/10/2023 10:14:17 No significant changes Electronically Signed On 04-11-2023 8:36:21 RN NEW GRADUATE by Ananda Gardner M.D. [id number]
[2023-04-10 13:14] LABS: Adenovirus Not Detected (NOT DETECT); Chlamydia Pneumoniae Not Detected (NOT DETECT); Coronavirus 229E,HKU1,NL63,OC4 Not Detected (NOT DETECT); Human Metapneumovirus Not Detected (NOT DETECT); Human Rhinovirus/Enterovirus Not Detected (NOT DETECT); Influenza A Not Detected (NOT DETECT); Influenza A H1 Not Detected (NOT DETECT); Influenza A H1-2009 Not Detected (NOT DETECT); Influenza A H3 Not Detected (NOT DETECT); Influenza B Not Detected (NOT DETECT); Mycoplasma Pneumoniae Not Detected (NOT DETECT); Parainfluenza Virus Type 1 Detected (NOT DETECT); Parainfluenza Virus Type 2 Not Detected (NOT DETECT); Parainfluenza Virus Type 3 Not Detected (NOT DETECT); Parainfluenza Virus Type 4 Not Detected (NOT DETECT); Respiratory Syncytial Virus A Not Detected (NOT DETECT); Respiratory Syncytial Virus B Not Detected (NOT DETECT); SARS-COV-2 Not Detected (NOT DETECT)
[2023-04-10 14:05] LABS: Parainfluenza Virus Type 1 Detected (NOT DETECT); Parainfluenza Virus Type 2 Not Detected (NOT DETECT); Parainfluenza Virus Type 3 Not Detected (NOT DETECT); Parainfluenza Virus Type 4 Not Detected (NOT DETECT); Results from GEN
--- NOTE | 2023-04-10 14:25 | PM.PN ---
Subjective Subjective: He is doing slightly better. Trying wean off BiPAP. Having cough. Congestion. Vitals/I&O/Wt Last Vital Signs Temp 97.8 F 04/10/23 04:17 Pulse 73 04/10/23 12:45 Resp 22 H 04/10/23 11:09 BP 105/51 04/10/23 12:45 Pulse Ox 100 04/10/23 12:45 O2 Del Method BiPAP 04/10/23 11:09 O2 Flow Rate 4 04/10/23 04:17 FiO2 40 04/10/23 11:10 04/09/23 04/10/23 04/10/23 22:59 06:59 14:59 Intake Total 300 / 300 Output Total 400 / 400 Balance 300 / 300 -400 / -400 Weight last 48 hrs Weight 81.647 kg Weight 81.647 kg Physical Exam Const: COMMON NORMALS: patient oriented x3 and alert GENERAL APPEARANCE: cooperative ORIENTATION/CONSCIOUSNESS: Yes awake HENMT: COMMON NORMALS: oropharynx normal Neck/C-Spine: COMMON NORMALS: no JVD Resp: AUSCULTATION: crackles, rhonchi and wheezes OTHER: Dyspnea with minimal exertion. Cardio: COMMON NORMALS: no JVD, regular rhythm, S1 normal heart sound present, S2 normal heart sound present and No murmurs present (Cardio) RHYTHM: regular rhythm HEART SOUNDS: S1 normal heart sound present and S2 normal heart sound present GI: COMMON NORMALS: Normal to inspection, nondistended, normoactive bowel sounds present, Soft to palpation and non-tender PALPATION: Yes Soft to palpation Extremity: COMMON NORMALS: no joint enlargement GENERAL: Yes edema (Mild) Neuro: COMMON NORMALS: patient oriented x3 and moves all extremities SENSORIUM/ORIENTATION: Yes alert Skin: COMMON NORMALS: no rashes or lesions noted GENERAL SKIN EXAM: no rashes or lesions noted Urinary Catheter Management: Latex Free: Cath Placed During This Visit: yes Urinary Catheter Date of Insertion: 04/10/23 Urinary Catheter Time of Insertion: 13:24 Data 04/10/23 05:10 04/10/23 05:10 A&P Assessment and plan (1) Acute hypoxic respiratory failure: (2) Pneumonia: (3) CHF (congestive heart failure): (4) GERD (gastroesophageal reflux disease): Qualifiers: Esophagitis presence: without esophagitis Qualified Code(s): K21.9 - Gastro-esophageal reflux disease without esophagitis (5) Hx of heart artery stent: (6) Dyslipidemia: (7) Diabetes: Qualifiers: Diabetes mellitus type: type 2 Diabetes mellitus longterm insulin use: with intermediate card tender use Diabetes mellitus complication status: with kidney complications Diabetes mellitus complication detail: with chronic kidney disease Chronic kidney disease stage: stage 2 (mild) Qualified Code(s): E11.22 - Type 2 diabetes mellitus with diabetic chronic kidney disease; N18.2 - Chronic kidney disease, stage 2 (mild); Z79.4 - long-term (current) use of insulin Plan Acute hypoxic respiratory failure reviewed vitals, CBC, INR, ABG, CMP, magnesium, TSH, UA. Requested respiratory viral panel. Continue oxygen support. Reviewed BiPAP settings. Requesting with RT to target O2 saturation 88-92%. Trial off BiPAP, but having to resume BiPAP. Dyspneic with minimal exertion. Persistent respiratory failure. Continue Najera antibiotic coverage for at risk of suspected component of bacterial pneumonia, Zosyn, vancomycin. Kidney dysfunction with antibiotic combination, reassess kidney function, electrolytes. Monitor on telemetry. Monitor fluid balance. Follow-up sputum culture, reviewed, so far uncollected. Reviewed blood culture. Bending. Lovenox VT prophylaxis. -Systolic CHF exacerbation: Continue treatment. Continue IV diuretics, reassess electrolytes, kidney function with risk of electrolyte deficiency, kidney dysfunction. Monitor CHERIE. Monitor on telemetry with risk of arrhythmia. Reviewed troponin, noted moderate elevation. No chest pain. Monitor on telemetry. Echocardiogram has been requested, pending read. -Exacerbation of eosinophilic asthma/COPD: Continue Solu-Medrol, breathing treatments, antibiotic as above. -Immunocompromise state on chronic prednisone and Fasenra Normally on 4 L oxygen. Chronic urine retention: At home he self catheterizes. [place] catheter could not be placed. He prefers attempt with coud? as opposed to self-catheterization at current time. Continue Flomax. -Type 2 diabetes mellitus, low-dose sliding scale -Dyslipidemia -Full code -Lovenox for DVT prophylaxis Attestations Medical Necessity Statement*: Continue admission for assessment management of acute on chronic respiratory failure with pneumonia, COPD exacerbation, CHF exacerbation. Coding Level of Care Code Critical Care >/= 30 minutes Critical care time (in minutes): 35 The high probability of a clinically significant, sudden or life threatening deterioration, as referenced in this documentation, required my full and direct attention, intervention and personal management. The critical care time shown is in addition to time spent performing any reported separately billable procedures and includes the following: [x] Data and vital sign review and interpretation [x] Patient assessment, examination and intervention [x] Medication orders and management [x] Patient/Family updates as able [x] Care Coordination and Documentation. Diagnoses Acute hypoxic respiratory failure J96.01 Pneumonia J18.9 CHF (congestive heart failure) I50.9 Gastroesophageal reflux disease without esophagitis K21.9 Esophagitis presence: without esophagitis Hx of heart artery stent Z95.5 Dyslipidemia E78.5 Type 2 diabetes mellitus with stage 2 chronic kidney disease, with long-term current use of insulin E11.22; N18.2; Z79.4 Diabetes mellitus type: type 2 Diabetes mellitus longterm insulin use: with longterm use Diabetes mellitus complication status: with kidney complications Diabetes mellitus complication detail: with chronic kidney disease Chronic kidney disease stage: stage 2 (mild)
[2023-04-10 15:39] LABS: Troponin 5 6HR 39.85 ng/L (0-15)
[2023-04-10 15:40] LABS: Troponin 5 6HR Delta -1.15 ng/L (0-12)
[2023-04-10] MEDS: iohexol 350 mg/mL 500 mL Btl (per mL) IV (15:51)
[2023-04-10 17:58] LABS: Glucose Point of Care 146 mg/dL (70-110)
--- NOTE | 2023-04-10 20:15 | PC.NURSE ---
Lovenox Hematuria noted in patient's durham catheter, 80 mg lovenox subq due at 1999. Dr. Resendez contacted and verification received to administer lovenox. See MAR for details.
[2023-04-10] MEDS: enoxaparin 80 mg/0.8 mL Syringe SUBCUT (20:24)
[2023-04-10 20:30] LABS: Glucose Point of Care 179 mg/dL (70-110)
--- NOTE | 2023-04-10 20:30 | PC.NURSE ---
Pupils Patient's right pupil noted to be a size 4 while the left eye is a size 3, both with a brisk reaction to light, hand teen counselor equal, face symmetrical, and patient alert/oriented x4. When investigated, patient states he has had multiple traumas relating to the right eye, including an accident where wire penetrated the eye. Dr. Resendez notified and no new orders received.
[2023-04-10] MEDS: vancomycin 1,500 MG/300 ML PIGGYBACK 200 MG IV (22:12)
--- NOTE | 2023-04-10 23:32 | NPU.GN ---
Intensive Care Unit Group Topic: General Mood of Group
[2023-04-11] VITALS (44 sets, daily range): BP systolic 100–133; BP diastolic 48–79; PULSE 67–97; RESP 10–26; TEMP 36–36.8; O2SAT 83–100; BMI 25.1
[2023-04-11] MEDS: piperacillin-tazobactam 3.375 GM in sodium chloride 0.9% (plus) 50 ML IV ×3 (02:11→20:28)
[2023-04-11] MEDS: ipratropium-albuterol 3 mL Neb INHALATION ×5 (03:45→21:05)
[2023-04-11 04:52] LABS: Basophils % 0.1 %; Hematocrit 37.8 % (37-53); Lymphocytes % 7.1 %; Mean Corpuscular HGB Conc 32.5 g/dL (30-55); Mean Corpuscular Hemoglobin 27.9 pg (27-33); Mean Corpuscular Volume 85.7 fl (82-101); Mean Platelet Volume 9.1 fL (7.4-10.4); Monocytes # 1.1 10^3/uL (0.2-0.9); Monocytes % 7.2 %; Neutrophils # 12.39 10^3/uL (1.8-7.7); Neutrophils % 85.2 %; Nucleated Red Blood Cells % 0 %; Platelet Count 166 10^3/cmm (157-399); Red Blood Count 4.41 10^6/uL (3.85-5.65); Red Cell Distribution Width 14.5 % (12.1-15.1); White Blood Count 14.54 10^3/uL (3.29-11.43)
[2023-04-11] MEDS: aspirin 81 mg EC Tablet PO (05:03)
[2023-04-11] MEDS: methylPREDNISolone sod succ 40 mg/mL INJ IVP ×3 (05:03→22:49)
[2023-04-11] MEDS: metoprolol succinate ER (24 HR) 25 mg Tablet PO (05:03)
[2023-04-11 05:15] LABS: Anion Gap 9.7 (5-19); Blood Urea Nitrogen 29 mg/dL (8-23); Calcium 8.5 mg/dL (8.5-10.5); Carbon Dioxide 32 mmol/L (22-29); Chloride 98 mmol/L (98-107); Glucose 124 mg/dL (65-115); Osmolality Calculated 289 mOsm/kg (285-295); Potassium 3.7 mmol/L (3.5-5.1); Sodium 136 mmol/L (136-145)
[2023-04-11] MEDS: roflumilast 500 mcg Tablet PO (06:23)
[2023-04-11 07:31] LABS: Glucose Point of Care 113 mg/dL (70-110)
[2023-04-11] MEDS: enoxaparin 80 mg/0.8 mL Syringe SUBCUT ×2 (07:58→20:27)
[2023-04-11] MEDS: FUROsemide 10 mg/mL SDV 4mL 40 MG IVP (07:58)
[2023-04-11] MEDS: sucralfate 1 gm Tablet PO ×2 (07:59→17:20)
[2023-04-11] MEDS: atorvastatin 40 mg Tablet PO (07:59)
[2023-04-11] MEDS: budesonide 0.5 mg/2 mL Neb 0.25 MG INHALATION (08:41)
[2023-04-11 11:05] LABS: Glucose Point of Care 176 mg/dL (70-110)
[2023-04-11] MEDS: insulin lispro 100 unit/1 mL SUBCUT ×2 (11:28→17:58)
--- NOTE | 2023-04-11 16:27 | PC.NURSE ---
Report called to Medical Sugical nurse, patient to be transferred via wheel chair to room 261 and to remain on airborne/droplet/contact isolation precautions. Patient's belongings(clothes, shoes, small black bag) placed at bedside, noted to be alert and oriented at time of transfer and on on baseline oxygen requirement of 4L NC.
[2023-04-11] MEDS: vancomycin 1,500 MG/300 ML PIGGYBACK 200 MG IV (17:20)
[2023-04-11] MEDS: guaiFENesin 600 mg Tablet 1200 MG PO (17:20)
[2023-04-11 17:44] LABS: Glucose Point of Care 223 mg/dL (70-110)
[2023-04-11] MEDS: nortriptyline 25 mg Capsule 50 MG PO (20:28)
[2023-04-11 20:44] LABS: Glucose Point of Care 155 mg/dL (70-110)
--- NOTE | 2023-04-11 21:13 | P.PN_ITS ---
Subjective 2 Subjective: She is feeling better today. He is sitting up in chair. Visited by family. He is having some cough. He feels that he has some phlegm buildup which she cannot bring up. Discussed with him guaifenesin. Flutter valve. He requests for chest vest. Discussed with him regarding induce sputum samples. Vitals/I&O/Wt Last Vital Signs Temp 98.3 F 04/11/23 20:00 Pulse 93 04/11/23 21:05 Resp 20 H 04/11/23 21:05 BP 120/60 04/11/23 20:00 Pulse Ox 96 04/11/23 21:05 O2 Del Method Nasal Cannula 04/11/23 21:05 O2 Flow Rate 3.5 04/11/23 21:05 FiO2 26 04/11/23 11:26 04/11/23 04/11/23 04/11/23 06:59 14:59 22:59 Intake Total 470 / 810 360 / 360 590 / 950 Output Total 550 / 1600 850 / 850 Balance -80 / -790 -490 / -490 590 / 100 Weight last 48 hrs Weight 81.647 kg Weight 81.647 kg Weight 81.647 kg Physical Exam 2 Const: COMMON NORMALS: patient oriented x3 and alert GENERAL APPEARANCE: c ooperative ORIENTATION/CONSCIOUSNESS: Yes awake HENMT: COMMON NORMALS: oropharynx normal Neck/C-Spine: COMMON NORMALS: no JVD Resp: AUSCULTATION: rhonchi and wheezes Cardio: COMMON NORMALS: no JVD, regular rhythm, S1 normal heart sound present, S2 normal heart sound present and No murmurs present (Cardio) RHYTHM: regular rhythm HEART SOUNDS: S1 normal heart sound present and S2 normal heart sound present GI: COMMON NORMALS: Normal to inspection, nondistended, normoactive bowel sounds present, Soft to palpation and non-tender PALPATION: Yes Soft to palpation Extremity: COMMON NORMALS: no joint enlargement GENERAL: Yes edema (Mild) Neuro: COMMON NORMALS: patient oriented x3 and moves all extremities S ENSORIUM/ORIENTATION: Yes alert Skin: COMMON NORMALS: no rashes or lesions noted GENERAL SKIN EXAM: no rashes or lesions noted Urinary Catheter Management: Latex Free: Cath Placed During This Visit: yes Reason for Continuing Indwelling Catheter: Acute Urinary Retention or Obstruction Urinary Catheter Date of Insertion: 04/10/23 Urinary Catheter Time of Insertion: 13:24 Data 04/11/23 04:40 04/11/23 04:40 A&P Assessment and plan (1) Acute hypoxic respiratory failure: (2) Pneumonia: (3) CHF (congestive heart failure): (4) GERD (gastroesophageal reflux disease): Qualifiers: Esophagitis presence: without esophagitis Qualified Code(s): K21.9 - Gastro-esophageal reflux disease without esophagitis (5) Hx of heart artery stent: (6) Dyslipidemia: (7) Diabetes: Qualifiers: Diabetes mellitus type: type 2 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 Still requiring 4 L of oxygen by nasal cannula. Still wheezing, diet, rhonchi. Feels congested, cannot bring up phlegm. Add guaifenesin. Flutter valve. He requested chest vest, requested. Discussed with RT. Induced sputum for MTB. QuantiFERON gold has been requested. We discussed with him yesterday afternoon and this morning again regarding results of the CTA with innumerable mid to lower lung predominant nodular opacities in both lungs, mild groundglass, suspected atypical pneumonia, fungal or mycobacterial, versus metastatic disease. He does have history of cancer. Add Levaquin. Requested Fungitell, galactomannan. RT collecting to sputum for TB. Follow-up. Follow-up Contrin gold. Continue broad-spectrum antibiotic coverage at this time. Consider antifungal coverage. If available, consider consult with ID, pulmonology on Wednesday. Pulmonary embolism: Discussed with him finding of PE on CTA. Started on anticoagulation. Reviewed CBC, hemoglobin, platelets. Mild hematuria noted but improving. Continue treatment of pneumonia, broad-spectrum antibiotics. Zosyn, vancomycin. Kidney dysfunction with antibiotic combination, reassess kidney function, electrolytes. Monitor on telemetry. Monitor fluid balance. Continue supportive care for parainfluenza. Transfer out of ICU. Continue care on medical floor. Lovenox VT prophylaxis. -Systolic CHF exacerbation: Volume status appears better. Some worsening of BUN, bicarb. Creatinine up to 1.2. Hold additional diuretic for now. Reassess tomorrow, resume depending on volume status, renal function. Reviewed troponin, noted moderate elevation. No chest pain. Monitor on telemetry. Echocardiogram has been requested, pending read. -Exacerbation of eosinophilic asthma/COPD: Continue Solu-Medrol, breathing treatments, antibiotic as above. Monitor glucose with risk of hyperglycemia with steroids. -Immunocompromise state on chronic prednisone and Fasenra Normally on 4 L oxygen. Chronic urine retention: At home he self catheterizes. Catheterized with coud? catheter. Mild hematuria, resolving. Continue Flomax. -Type 2 diabetes mellitus, low-dose sliding scale -Dyslipidemia -Full code -Lovenox for DVT prophylaxis Attestations 2 Medical Necessity Statement*: Continue admission for assessment management of acute on chronic respiratory failure with pneumonia, pneumonia, parainfluenza infection, PE, COPD exacerbation, CHF exacerbation. Diagnoses Acute hypoxic respiratory failure J96.01 Pneumonia J18.9 CHF (congestive heart failure) I50.9 Gastroesophageal reflux disease without esophagitis K21.9 Esophagitis presence: without esophagitis Hx of heart artery stent Z95.5 Dyslipidemia E78.5 Type 2 diabetes mellitus with stage 2 chronic kidney disease, with long-term current use of insulin E11.22; N18.2; Z79.4 Diabetes mellitus type: type 2 Diabetes mellitus residential insulin use: with residential use Diabetes mellitus complication status: with kidney complications Diabetes mellitus complication detail: with chronic kidney disease Chronic kidney disease stage: stage 2 (mild)
[2023-04-12] VITALS (13 sets, daily range): BP systolic 112–147; BP diastolic 49–72; PULSE 81–93; RESP 18–22; TEMP 36.3–36.8; O2SAT 95–100
[2023-04-12] MEDS: ipratropium-albuterol 3 mL Neb INHALATION ×5 (00:18→15:38)
[2023-04-12] MEDS: levofloxacin-dextrose 5 % 750 MG/150 ML PREMIX 100 MG IV (00:49)
[2023-04-12] MEDS: piperacillin-tazobactam 3.375 GM in sodium chloride 0.9% (plus) 50 ML IV ×3 (04:36→20:45)
[2023-04-12 05:20] LABS: Basophils % 0.1 %; Hematocrit 38.9 % (37-53); Lymphocytes # 0.6 10^3/uL (0.8-4.8); Lymphocytes % 5.2 %; Mean Corpuscular HGB Conc 32.1 g/dL (30-55); Mean Corpuscular Hemoglobin 27.8 pg (27-33); Mean Corpuscular Volume 86.6 fl (82-101); Mean Platelet Volume 9.3 fL (7.4-10.4); Monocytes # 0.4 10^3/uL (0.2-0.9); Monocytes % 3.6 %; Neutrophils % 90.5 %; Nucleated Red Blood Cells % 0 %; Platelet Count 196 10^3/cmm (157-399); Red Blood Count 4.49 10^6/uL (3.85-5.65); Red Cell Distribution Width 14.5 % (12.1-15.1); White Blood Count 11.81 10^3/uL (3.29-11.43)
[2023-04-12 05:36] LABS: Blood Urea Nitrogen 37 mg/dL (8-23); Calcium 8.4 mg/dL (8.5-10.5); Carbon Dioxide 28 mmol/L (22-29); Chloride 103 mmol/L (98-107); Glucose 192 mg/dL (65-115); Osmolality Calculated 304 mOsm/kg (285-295); Sodium 140 mmol/L (136-145)
[2023-04-12] MEDS: aspirin 81 mg EC Tablet PO (05:49)
[2023-04-12] MEDS: roflumilast 500 mcg Tablet PO (05:49)
[2023-04-12] MEDS: metoprolol succinate ER (24 HR) 25 mg Tablet PO (05:49)
[2023-04-12] MEDS: methylPREDNISolone sod succ 40 mg/mL INJ IVP ×2 (05:49→13:58)
[2023-04-12] MEDS: montelukast sodium 10 mg Tablet PO (05:49)
[2023-04-12 06:31] LABS: Glucose Point of Care 197 mg/dL (70-110)
[2023-04-12] MEDS: budesonide 0.5 mg/2 mL Neb 0.25 MG INHALATION (07:52)
[2023-04-12] MEDS: guaiFENesin 600 mg Tablet 1200 MG PO ×2 (08:43→17:21)
[2023-04-12] MEDS: insulin lispro 100 unit/1 mL SUBCUT ×3 (08:43→17:21)
[2023-04-12] MEDS: atorvastatin 40 mg Tablet PO (08:43)
[2023-04-12] MEDS: sucralfate 1 gm Tablet PO ×2 (08:43→17:21)
[2023-04-12] MEDS: enoxaparin 80 mg/0.8 mL Syringe SUBCUT ×2 (08:43→20:45)
[2023-04-12] MEDS: vancomycin 1,500 MG/300 ML PIGGYBACK 200 MG IV (10:49)
[2023-04-12 11:30] LABS: Glucose Point of Care 224 mg/dL (70-110)
[2023-04-12 14:13] LABS: Iron 55 ug/dL (59-158); Percent Saturation 32.5 % (20-50); Total Iron Binding Capacity 169 mcg/dl; Unsaturated Iron Binding 114 ug/dL (112-347)
[2023-04-12 14:29] LABS: Vitamin B12 352 pg/mL (232-1245)
[2023-04-12 14:50] LABS: Add Urine Microscopic? YES; Bilirubin Urine Neg (Negative); Blood Urine 3+ (Negative); Glucose Urine UA Norm (Normal); Ketones Urine Negative (Negative); Leukocyte Esterase Urine Trace (Negative); Nitrate Urine Negative (Negative); Protein Urine 1+ (Negative); Urine Color Yellow (Yellow); Urobilinogen Urine Norm (Negative); pH Urine 5 (5-7)
[2023-04-12 14:51] LABS: Add Urine Culture? Yes; Bacteria Urine 1+ /hpf; RBC Urine TOO NUMEROUS TO CNT /hpf (0-2)
[2023-04-12 16:51] LABS: Glucose Point of Care 220 mg/dL (70-110)
--- NOTE | 2023-04-12 16:56 | PM.PN ---
Subjective Subjective: Hospital course, labs appreciated. On examination patient sitting comfortably in bed on 2 L of oxygen supplementation saturating more than 95%. Patient seems slightly aggravated because he thought he is being kept In the hospital because he cannot rule out tuberculosis. Facility with the patient that his discharge is not dependent on result of tuberculosis rather on his clinical improvement. Discussed multiple plans of treatment for now and he was agreeable. He otherwise denies any nausea vomiting, headache. States feeling a lot better. Vitals/I&O/Wt Last Vital Signs Temp 98.0 F 04/12/23 11:48 Pulse 87 04/12/23 15:52 Resp 18 04/12/23 15:52 BP 112/66 04/12/23 11:48 Pulse Ox 96 04/12/23 15:52 O2 Del Method Nasal Cannula 04/12/23 15:52 O2 Flow Rate 2 04/12/23 15:52 FiO2 26 04/11/23 11:26 04/12/23 04/12/23 04/12/23 06:59 14:59 22:59 Intake Total 150 / 1150 710 / 710 Balance 150 / -250 710 / 710 Weight last 48 hrs Weight 80.541 kg Weight 81.647 kg Physical Exam Const: COMMON NORMALS: no acute distress, patient oriented x3 and alert GENERAL APPEARANCE: cooperative ORIENTATION/CONSCIOUSNESS: Yes awake HENMT: COMMON NORMALS: normocephalic and oropharynx normal HEAD & SCALP: normocephalic Eye: COMMON NORMALS: Equal, round and reactive pupils present and EOMs intact bilaterally PUPIL: Yes Equal, round and reactive pupils present Neck/C-Spine: COMMON NORMALS: no JVD Lymph: LYMPHATIC: no lymphadenopathy noted Chest: COMMONS NORMALS: normal inspection of the chest Resp: COMMON NORMALS: normal respiratory effort EFFORT & INSPECTION: Yes respiratory distress and Yes retractions intercostal AUSCULTATION: crackles, rhonchi and wheezes OTHER: Dyspnea with minimal exertion. Cardio: COMMON NORMALS: no JVD, regular rate, regular rhythm, S1 normal heart sound present, S2 normal heart sound present and No murmurs present (Cardio) RATE: regular rate RHYTHM: regular rhythm HEART SOUNDS: S1 normal heart sound present and S2 normal heart sound present GI: COMMON NORMALS: Normal to inspection, nondistended, normoactive bowel sounds present, Soft to palpation and non-tender PALPATION: Yes Soft to palpation Extremity: COMMON NORMALS: no joint enlargement GENERAL: Yes edema (Mild) Neuro: COMMON NORMALS: patient oriented x3, CN's II-XII intact bilaterally and moves all extremities SENSORIUM/ORIENTATION: Yes alert Psych: COMMON NORMALS: mental status grossly normal Skin: COMMON NORMALS: no rashes or lesions noted GENERAL SKIN EXAM: no rashes or lesions noted Urinary Catheter Management: Latex Free: Cath Placed During This Visit: yes Reason for Continuing Indwelling Catheter: Chronic Indwelling Urinary Catheter on Admission Urinary Catheter Date of Insertion: 04/10/23 Urinary Catheter Time of Insertion: 13:24 Data 04/12/23 04:54 04/12/23 04:54 Micro: Microbiology 04/10/23 07:13 Blood Culture - Preliminary Blood 04/10/23 05:10 Blood Culture - Preliminary Blood 04/11/23 15:35 Gram Stain - Final Sputum - Expectorated Sputum Sputum Culture - Preliminary Gram Negative Rods A&P Assessment and plan (1) Acute hypoxic respiratory failure: (2) Pneumonia: (3) CHF (congestive heart failure): (4) GERD (gastroesophageal reflux disease): Qualifiers: Esophagitis presence: without esophagitis Qualified Code(s): K21.9 - Gastro-esophageal reflux disease without esophagitis (5) Hx of heart artery stent: (6) Dyslipidemia: (7) Diabetes: Qualifiers: Diabetes mellitus type: type 2 Diabetes mellitus correction insulin use: with correction use Diabetes mellitus complication status: with kidney complications Diabetes mellitus complication detail: with chronic kidney disease Chronic kidney disease stage: stage 2 (mild) Qualified Code(s): E11.22 - Type 2 diabetes mellitus with diabetic chronic kidney disease; N18.2 - Chronic kidney disease, stage 2 (mild); Z79.4 - care home (current) use of insulin Plan Acute hypoxic respiratory failure: Showing improvement. Still requiring 4 L of oxygen by nasal cannula. Still wheezing, diet, rhonchi. Feels congested, cannot bring up phlegm. Add guaifenesin. Flutter valve. He requested chest vest, requested. Discussed with RT. Induced sputum for MTB. QuantiFERON gold has been requested. We discussed with him yesterday afternoon and this morning again regarding results of the CTA with innumerable mid to lower lung predominant nodular opacities in both lungs, mild groundglass, suspected atypical pneumonia, fungal or mycobacterial, versus metastatic disease. He does have history of cancer. Add Levaquin. Requested Fungitell, galactomannan. RT collecting to sputum for TB. Follow-up. Follow-up Contrin gold. Continue broad-spectrum antibiotic coverage at this time. Consider antifungal coverage. If available, consider consult with ID, pulmonology on Wednesday. Pulmonary embolism: Discussed with him finding of PE on CTA. Started on anticoagulation. Reviewed CBC, hemoglobin, platelets. Mild hematuria noted but improving. Continue treatment of pneumonia, broad-spectrum antibiotics. Zosyn, vancomycin. Kidney dysfunction with antibiotic combination, reassess kidney function, electrolytes. Monitor on telemetry. Monitor fluid balance. Continue supportive care for parainfluenza. Transfer out of ICU. Continue care on medical floor. Lovenox VT prophylaxis. -Systolic CHF exacerbation: Volume status appears better. Some worsening of BUN, bicarb. Creatinine up to 1.2. Hold additional diuretic for now. Reassess tomorrow, resume depending on volume status, renal function. Reviewed troponin, noted moderate elevation. No chest pain. Monitor on telemetry. Echocardiogram has been requested, pending read. -Exacerbation of eosinophilic asthma/COPD: Continue Solu-Medrol, breathing treatments, antibiotic as above. Monitor glucose with risk of hyperglycemia with steroids. -Immunocompromise state on chronic prednisone and Fasenra Normally on 4 L oxygen. Chronic urine retention: At home he self catheterizes. Catheterized with coud? catheter. Mild hematuria, resolving. Continue Flomax. -Type 2 diabetes mellitus, low-dose sliding scale -Dyslipidemia -Full code -Lovenox for DVT prophylaxis Plan for the day: Start patient on Pulmicort twice daily. Continue with DuoNebs every 4 hours Switch methylprednisone to 40 mg IV twice daily. Oxygen supplementation keeping saturation over 90%. Switch to oral Levaquin from IV Levaquin. Otherwise continue with IV Zosyn. Hold off on vancomycin for now. History of MRSA being negative. Repeat MRSA swab. Continue with full dose of Lovenox. Will switch to Eliquis on discharge. Follow-up multiple fungal and tuberculosis tests sent out. Continue with airborne precautions. Echocardiogram shows EF of 30% with paradoxical septal motion, grade 1 diastolic dysfunction, normal RV with mildly decreased RV systolic function. Start on oral Lasix 40 mg daily. Most likely patient will need to be discharged on Lasix going forward. Check urine Legionella and bacterial antigen. Restart home dose of cetirizine Attestations Medical Necessity Statement*: Requires further hospitalization for management of hypoxic respiratory failure in setting of COPD exacerbation from parainfluenza, superimposed bacterial infection, pulmonary embolism and congestive heart failure Diagnoses Acute hypoxic respiratory failure J96.01 Pneumonia J18.9 CHF (congestive heart failure) I50.9 Gastroesophageal reflux disease without esophagitis K21.9 Esophagitis presence: without esophagitis Hx of heart artery stent Z95.5 Dyslipidemia E78.5 Type 2 diabetes mellitus with stage 2 chronic kidney disease, with long-term current use of insulin E11.22; N18.2; Z79.4 Diabetes mellitus type: type 2 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
[2023-04-12] MEDS: nortriptyline 25 mg Capsule 50 MG PO (20:45)
[2023-04-13] VITALS (14 sets, daily range): BP systolic 119–136; BP diastolic 63–79; PULSE 58–106; RESP 16–20; TEMP 36.4–36.7; O2SAT 93–96; BMI 21.3
[2023-04-13] MEDS: ipratropium-albuterol 3 mL Neb INHALATION ×4 (02:34→21:15)
[2023-04-13] MEDS: piperacillin-tazobactam 3.375 GM in sodium chloride 0.9% (plus) 50 ML IV ×3 (04:56→20:29)
[2023-04-13] MEDS: levoFLOXacin 750 mg Tablet PO (04:58)
[2023-04-13] MEDS: montelukast sodium 10 mg Tablet PO (04:58)
[2023-04-13] MEDS: metoprolol succinate ER (24 HR) 25 mg Tablet PO (04:58)
[2023-04-13] MEDS: pantoprazole DR 40 mg Tablet PO (04:58)
[2023-04-13] MEDS: roflumilast 500 mcg Tablet PO (04:58)
[2023-04-13] MEDS: aspirin 81 mg EC Tablet PO (04:59)
[2023-04-13 05:06] LABS: Basophils % 0.1 %; Hematocrit 40.5 % (37-53); Lymphocytes % 6.8 %; Mean Corpuscular HGB Conc 31.9 g/dL (30-55); Mean Corpuscular Hemoglobin 27.5 pg (27-33); Mean Corpuscular Volume 86.4 fl (82-101); Monocytes % 6.4 %; Neutrophils # 13.16 10^3/uL (1.8-7.7); Neutrophils % 86.2 %; Nucleated Red Blood Cells % 0 %; Platelet Count 243 10^3/cmm (157-399); Red Blood Count 4.69 10^6/uL (3.85-5.65); Red Cell Distribution Width 14.6 % (12.1-15.1); White Blood Count 15.25 10^3/uL (3.29-11.43)
[2023-04-13 05:33] LABS: Alanine Aminotransferase 15 U/L (0-41); Albumin Level 2.8 g/dL (3.5-5.2); Alkaline Phosphatase 70 U/L (40-130); Anion Gap 12.1 (5-19); Aspartate Amino Transferase 17 U/L (0-40); Blood Urea Nitrogen 39 mg/dL (8-23); Calcium 8.8 mg/dL (8.5-10.5); Carbon Dioxide 29 mmol/L (22-29); Chloride 104 mmol/L (98-107); Globulin 3.4 g/dL (1.3-4.6); Glucose 153 mg/dL (65-115); Osmolality Calculated 304 mOsm/kg (285-295); Potassium 4.1 mmol/L (3.5-5.1); Sodium 141 mmol/L (136-145); Total Bilirubin 0.5 mg/dL (0.15-1.2); Total Protein 6.2 g/dL (6.6-8.7)
[2023-04-13 05:52] LABS: Folate Level 2.6 ng/mL (4.5-32.2)
[2023-04-13 06:01] LABS: Glucose Point of Care 126 mg/dL (70-110)
[2023-04-13] MEDS: ondansetron 2 mg/ML SDV 2 mL 4 MG IVP (06:43)
[2023-04-13] MEDS: budesonide 0.5 mg/2 mL Neb INHALATION ×2 (07:35→21:15)
[2023-04-13] MEDS: guaiFENesin 600 mg Tablet 1200 MG PO ×2 (09:36→17:10)
[2023-04-13] MEDS: enoxaparin 80 mg/0.8 mL Syringe SUBCUT ×2 (09:36→20:29)
[2023-04-13] MEDS: atorvastatin 40 mg Tablet PO (09:36)
[2023-04-13] MEDS: cetirizine 10 mg Tablet PO (09:36)
[2023-04-13] MEDS: methylPREDNISolone sod succ 40 mg/mL INJ IVP ×2 (09:36→17:10)
[2023-04-13] MEDS: sucralfate 1 gm Tablet PO ×2 (09:36→17:10)
[2023-04-13] MEDS: FUROsemide 40 mg Tablet PO (09:38)
[2023-04-13] MEDS: sennosides-docusate Tablet 1 TAB PO ×2 (09:55→17:10)
[2023-04-13 12:24] LABS: Glucose Point of Care 160 mg/dL (70-110)
[2023-04-13] MEDS: insulin lispro 100 unit/1 mL SUBCUT ×2 (12:44→17:10)
[2023-04-13 15:10] LABS: Methicillin-Resist S.aureu PCR NOT DETECTED (NOT DETECTED)
--- NOTE | 2023-04-13 15:15 | PM.PN ---
Subjective Subjective: No events overnight. Patient has remained hemodynamically stable and afebrile. States his breathing is stable. Denies any nausea vomiting, headache. Saturating well over 92% on 2 L of oxygen supplementation. Complaining of constipation. Denies any nausea or vomiting. Vitals/I&O/Wt Last Vital Signs Temp 98.0 F 04/13/23 13:05 Pulse 77 04/13/23 14:10 Resp 18 04/13/23 14:06 BP 122/63 04/13/23 13:05 Pulse Ox 94 04/13/23 14:06 O2 Del Method Nasal Cannula 04/13/23 14:06 O2 Flow Rate 2 04/13/23 14:06 FiO2 26 04/11/23 11:26 04/13/23 04/13/23 04/13/23 06:59 14:59 22:59 Intake Total 50 / 1290 650 / 650 Output Total 650 / 1450 Balance -600 / -160 650 / 650 Weight last 48 hrs Weight 69.4 kg Weight 80.541 kg Physical Exam Const: COMMON NORMALS: no acute distress, patient oriented x3 and alert GENERAL APPEARANCE: cooperative ORIENTATION/CONSCIOUSNESS: Yes awake HENMT: COMMON NORMALS: normocephalic and oropharynx normal HEAD & SCALP: normocephalic Eye: COMMON NORMALS: Equal, round and reactive pupils present and EOMs intact bilaterally PUPIL: Yes Equal, round and reactive pupils present Neck/C-Spine: COMMON NORMALS: no JVD Lymph: LYMPHATIC: no lymphadenopathy noted Chest: COMMONS NORMALS: normal inspection of the chest Resp: COMMON NORMALS: normal respiratory effort EFFORT & INSPECTION: Yes respiratory distress and Yes retractions intercostal AUSCULTATION: crackles, rhonchi and wheezes OTHER: Dyspnea with minimal exertion. Cardio: COMMON NORMALS: no JVD, regular rate, regular rhythm, S1 normal heart sound present, S2 normal heart sound present and No murmurs present (Cardio) RATE: regular rate RHYTHM: regular rhythm HEART SOUNDS: S1 normal heart sound present and S2 normal heart sound present GI: COMMON NORMALS: Normal to inspection, nondistended, normoactive bowel sounds present, Soft to palpation and non-tender PALPATION: Yes Soft to palpation Extremity: COMMON NORMALS: no joint enlargement GENERAL: Yes edema (Mild) Neuro: COMMON NORMALS: patient oriented x3, CN's II-XII intact bilaterally and moves all extremities SENSORIUM/ORIENTATION: Yes alert Psych: COMMON NORMALS: mental status grossly normal Skin: COMMON NORMALS: no rashes or lesions noted GENERAL SKIN EXAM: no rashes or lesions noted Urinary Catheter Management: Latex Free: Cath Placed During This Visit: yes Reason for Continuing Indwelling Catheter: Other Urinary Catheter Date of Insertion: 04/10/23 Urinary Catheter Time of Insertion: 13:24 Data 04/13/23 04:53 04/13/23 04:53 Micro: Microbiology 04/11/23 15:35 Gram Stain - Final Sputum - Expectorated Sputum Sputum Culture - Final Klebsiella oxytoca 04/12/23 14:05 Urine Culture - Preliminary Urine,Clean Catch 04/12/23 14:05 Bacterial Antigens - Final Urine Kidney 04/12/23 14:05 Legionella Urinary Antigen - Final Unknown Source 04/10/23 07:13 Blood Culture - Preliminary Blood 04/10/23 05:10 Blood Culture - Preliminary Blood A&P Assessment and plan (1) Acute hypoxic respiratory failure: (2) Pneumonia: (3) CHF (congestive heart failure): (4) GERD (gastroesophageal reflux disease): Qualifiers: Esophagitis presence: without esophagitis Qualified Code(s): K21.9 - Gastro-esophageal reflux disease without esophagitis (5) Hx of heart artery stent: (6) Dyslipidemia: (7) Diabetes: Qualifiers: Diabetes mellitus type: type 2 Diabetes mellitus director post insulin use: with residential use Diabetes mellitus complication status: with kidney complications Diabetes mellitus complication detail: with chronic kidney disease Chronic kidney disease stage: stage 2 (mild) Qualified Code(s): E11.22 - Type 2 diabetes mellitus with diabetic chronic kidney disease; N18.2 - Chronic kidney disease, stage 2 (mild); 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 Still requiring 4 L of oxygen by nasal cannula. Still wheezing, diet, rhonchi. Feels congested, cannot bring up phlegm. Add guaifenesin. Flutter valve. He requested chest vest, requested. Discussed with RT. Induced sputum for MTB. QuantiFERON gold has been requested. We discussed with him yesterday afternoon and this morning again regarding results of the CTA with innumerable mid to lower lung predominant nodular opacities in both lungs, mild groundglass, suspected atypical pneumonia, fungal or mycobacterial, versus metastatic disease. He does have history of cancer. Add Levaquin. Requested Fungitell, galactomannan. RT collecting to sputum for TB. Follow-up. Follow-up Contrin gold. Continue broad-spectrum antibiotic coverage at this time. Consider antifungal coverage. If available, consider consult with ID, pulmonology on Wednesday. Pulmonary embolism: Discussed with him finding of PE on CTA. Started on anticoagulation. Reviewed CBC, hemoglobin, platelets. Mild hematuria noted but improving. Continue treatment of pneumonia, broad-spectrum antibiotics. Zosyn, vancomycin. Kidney dysfunction with antibiotic combination, reassess kidney function, electrolytes. Monitor on telemetry. Monitor fluid balance. Continue supportive care for parainfluenza. Transfer out of ICU. Continue care on medical floor. Lovenox VT prophylaxis. -Systolic CHF exacerbation: Volume status appears better. Some worsening of BUN, bicarb. Creatinine up to 1.2. Hold additional diuretic for now. Reassess tomorrow, resume depending on volume status, renal function. Reviewed troponin, noted moderate elevation. No chest pain. Monitor on telemetry. Echocardiogram has been requested, pending read. -Exacerbation of eosinophilic asthma/COPD: Continue Solu-Medrol, breathing treatments, antibiotic as above. Monitor glucose with risk of hyperglycemia with steroids. -Immunocompromise state on chronic prednisone and Fasenra Normally on 4 L oxygen. Chronic urine retention: At home he self catheterizes. Catheterized with coud? catheter. Mild hematuria, resolving. Continue Flomax. -Type 2 diabetes mellitus, low-dose sliding scale -Dyslipidemia -Full code -Lovenox for DVT prophylaxis Plan for the day: Continue with nebulization treatment. Wean Solu-Medrol further to 40 mg IV daily. Will transition over to oral steroids on discharge. Follow-up sputum culture. Sputum culture today growing Klebsiella. Sensitivities appreciated. Continue with IV Zosyn for now. Will transition over to oral Levaquin to finish a 5-day course on discharge. Continue with oral Lasix. Appreciate TB Gold results. [place] catheter. Physical therapy evaluation. Continue with full dose Lovenox. Aggressive bowel regimen. Plan to discharge in next 24 hours if patient remains unstable oxygen supplementation on ambulation. Attestations Medical Necessity Statement*: Requires further hospitalization for management of hypoxia in setting of COPD and CHF exacerbation from influenza along with superimposed bacterial infection, pulmonary embolism Diagnoses Acute hypoxic respiratory failure J96.01 Pneumonia J18.9 CHF (congestive heart failure) I50.9 Gastroesophageal reflux disease without esophagitis K21.9 Esophagitis presence: without esophagitis Hx of heart artery stent Z95.5 Dyslipidemia E78.5 Type 2 diabetes mellitus with stage 2 chronic kidney disease, with long-term current use of insulin E11.22; N18.2; Z79.4 Diabetes mellitus type: type 2 Diabetes mellitus director post insulin use: with residential use Diabetes mellitus complication status: with kidney complications Diabetes mellitus complication detail: with chronic kidney disease Chronic kidney disease stage: stage 2 (mild) Klebsiella pneumonia J15.0
[2023-04-13 16:47] LABS: Glucose Point of Care 209 mg/dL (70-110)
[2023-04-13] MEDS: nortriptyline 25 mg Capsule 50 MG PO (20:29)
[2023-04-13 21:36] LABS: Glucose Point of Care 205 mg/dL (70-110)
[2023-04-14] VITALS (8 sets, daily range): BP systolic 113–144; BP diastolic 73–92; PULSE 75–90; RESP 16–22; TEMP 36.4–36.8; O2SAT 93–100; BMI 25.2
[2023-04-14] MEDS: piperacillin-tazobactam 3.375 GM in sodium chloride 0.9% (plus) 50 ML IV (04:12)
[2023-04-14] MEDS: roflumilast 500 mcg Tablet PO (06:05)
[2023-04-14] MEDS: pantoprazole DR 40 mg Tablet PO (06:05)
[2023-04-14] MEDS: levoFLOXacin 750 mg Tablet PO (06:05)
[2023-04-14] MEDS: metoprolol succinate ER (24 HR) 25 mg Tablet PO (06:05)
[2023-04-14] MEDS: montelukast sodium 10 mg Tablet PO (06:05)
[2023-04-14] MEDS: aspirin 81 mg EC Tablet PO (06:05)
[2023-04-14 07:12] LABS: Glucose Point of Care 163 mg/dL (70-110)
[2023-04-14] MEDS: ipratropium-albuterol 3 mL Neb INHALATION ×2 (07:46→13:25)
[2023-04-14] MEDS: budesonide 0.5 mg/2 mL Neb INHALATION (07:46)
[2023-04-14] MEDS: atorvastatin 40 mg Tablet PO (08:35)
[2023-04-14] MEDS: cetirizine 10 mg Tablet PO (08:35)
[2023-04-14] MEDS: enoxaparin 80 mg/0.8 mL Syringe SUBCUT (08:35)
[2023-04-14] MEDS: guaiFENesin 600 mg Tablet 1200 MG PO (08:36)
[2023-04-14] MEDS: sennosides-docusate Tablet 1 TAB PO (08:36)
[2023-04-14] MEDS: sucralfate 1 gm Tablet PO (08:36)
[2023-04-14] MEDS: FUROsemide 40 mg Tablet PO (08:36)
[2023-04-14] MEDS: insulin lispro 100 unit/1 mL SUBCUT (08:41)
--- NOTE | 2023-04-14 09:58 | P.DS_ITS ---
Discharge Providers Date of Admission: 04/10/23 05:13 Date of Discharge: April 14, 2023 Attending Provider at Admission: Sundeep Resendez MD Attending Provider at Discharge: Feliz Perea MD Primary Care Provider: SIERRA Andrew Diagnoses at Discharge Discharge Diagnosis (1) Acute hypoxic respiratory failure: Status: Acute (2) Pneumonia: Status: Acute (3) CHF (congestive heart failure): Status: Chronic (4) GERD (gastroesophageal reflux disease): Status: Chronic Qualifiers: Esophagitis presence: without esophagitis Qualified Code(s): K21.9 - Gastro-esophageal reflux disease without esophagitis (5) Hx of heart artery stent: Status: Chronic Permanent problem details: left (6) Dyslipidemia: Status: Chronic (7) Diabetes: Status: Chronic Qualifiers: Chronic kidney disease stage: stage 2 (mild) Diabetes mellitus complication detail: with chronic kidney disease Diabetes mellitus complication status: with kidney complications Diabetes mellitus mcfp insulin use: 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 DISTRSS Brief History: History as per HPI: Andrew Sainz is a 82 year old male history of severe persistent eosinophilic asthma, history of CHF, history of colon cancer, history of COPD, type 2 diabetes mellitus, GERD, chronically on 4 L, history of pacemaker who presents to [facility] due to persistent shortness of breath. Patient tells me for the last few days he has had increasing shortness of breath, shortness of breath with exertion, with a nonproductive cough, no fevers, no chills, no lower extremity edema, no orthopnea, no paroxysmal nocturnal dyspnea, no history of current smoking, due to persistent shortness of breath, EMS was called out to his home, here he was found to have acute hypoxic respiratory failure placed on BiPAP, currently on BiPAP, in mild respiratory distress, tachypnea, no tachycardia, intercostal retractions no suprasternal retractions, has diffuse crackles and wheezing in lung malone, Hospital Course Hospital Course Patient was admitted to the hospital further evaluation and management of hypoxic respiratory failure in setting of COPD exacerbation from parainfluenza infection, superimposed bacterial infection and pulmonary embolism and nigel estive heart failure which was found on CTA done on admission. He was started on IV antibiotics, steroids, elation treatment and full dose anticoagulation along with IV diuretics. Echocardiogram was done on admission which showed global LV hypokinesia with EF of 30%, paradoxical septal motion along with grade 1 diastolic dysfunction without any concerns for RV overload. Patient responded well to the treatment and gradually improved. Sputum culture came back positive for Klebsiella. On CT chest on admission there were concerns for bilateral GGO's for which further workup including fungal infection and possible tuberculosis has been sent out. He has been discharged in hemodynamically stable condition on oral Levaquin for 4 more days, Eliquis 10 mg twice daily for 7 days followed by 5 mg twice daily for the rest of his life. He is also being discharged on prednisone taper. He is to hold off on his home dose of prednisone till the taper finishes. He is to follow-up with a primary care provider on set appointment. Physical Exam Const: COMMON NORMALS: no acute distress, patient oriented x3 and alert GENERAL APPEARANCE: cooperative ORIENTATION/CONSCIOUSNESS: Yes awake HENMT: COMMON NORMALS: normocephalic and oropharynx normal HEAD & SCALP: normocephalic Eye: COMMON NORMALS: Equal, round and reactive pupils present and EOMs intact bilaterally PUPIL: Yes Equal, round and reactive pupils present Neck/C-Spine: COMMON NORMALS: no JVD Lymph: LYMPHATIC: no lymphadenopathy noted Chest: COMMONS NORMALS: normal inspection of the chest Resp: COMMON NORMALS: normal respiratory effort EFFORT & INSPECTION: Yes respiratory distress and Yes retractions intercostal AUSCULTATION: crackles, rhonchi and wheezes OTHER: Dyspnea with minimal exertion. Cardio: COMMON NORMALS: no JVD, regular rate, regular rhythm, S1 normal heart sound present, S2 normal heart sound present and No murmurs present (Cardio) RATE: regular rate RHYTHM: regular rhythm HEART SOUNDS: S1 normal heart sound present and S2 normal heart sound present GI: COMMON NORMALS: Normal to inspection, nondistended, normoactive bowel sounds present, Soft to palpation and non-tender PALPATION: Yes Soft to palpation Extremity: COMMON NORMALS: no joint enlargement GENERAL: Yes edema (Mild) Neuro: COMMON NORMALS: patient oriented x3, CN's II-XII intact bilaterally and moves all extremities SENSORIUM/ORIENTATION: Yes alert Psych: COMMON NORMALS: mental status grossly normal Skin: COMMON NORMALS: no rashes or lesions noted GENERAL SKIN EXAM: no rashes or lesions noted Urinary Catheter Management: Latex Free: Cath Placed During This Visit: yes Reason for Continuing Indwelling Catheter: Chronic Indwelling Urinary Catheter on Admission Urinary Catheter Date of Insertion: 04/10/23 Urinary Catheter Time of Insertion: 13:24 Discharge Data Studies Completed and Pending Completed Studies During Hospitalization Category Date Time Status CT angio chest PE protcl [id number] Routine Cat Scan 04/10/23 08:12 Completed XR chest 1V portable [id number] Stat Exams 04/10/23 04:22 Completed CV. echo complete* [id number] Routine Ultrasound 04/10/23 08:12 Completed Pending at discharge Category Date Time Status Blood Cultures ([facility]) Routine Lab 04/10/23 05:10 Results Blood Cultures ([facility]) Routine Lab 04/10/23 07:13 Results Fungitell Glucan Assay (Blood) Routine Lab 04/10/23 18:19 Received Histoplasma Galactomannan Ag Routine Lab 04/10/23 18:10 Received Histoplasma Quantitative AG Routine Lab 04/10/23 18:10 Received Mycobacterium TB Respiratory Q12H Lab 04/11/23 15:35 Received Radiology Impressions Chest X-Ray 04/10/23 04:22 IMPRESSION: Pneumonia. Chest CTA 04/10/23 08:12 IMPRESSION: 1. Acute lingular segmental/subsegmental PE. No pulmonary infarct or evidence of right heart strain. 2. Innumerable mid to lower lung predominant nodular opacities in both lungs with mild ground-glass raising the question of an atypical pneumonia (fungal or mycobacterial) versus metastatic disease in the proper clinical setting. Pulmonary/infectious disease evaluation is recommended. 3. Mediastinal and hilar adenopathy, possibly reactive. Phan spread of neoplasm or a lymphoproliferative process would be difficult to exclude. THIS REPORT CONTAINS FINDINGS THAT MAY BE CRITICAL TO PATIENT CARE. The findings were verbally communicated by telephone with Dr. Marques at 4:29 PM SUPERINTENDENT MAINTENANCE on 04/10/2023. The findings were acknowledged and understood. Echocardiogram: CONCLUSIONS Poor quality study. The ventricle is seen primarily in the apical view. There is at least mild left ventricular enlargement. There is global hypokinesis with an ejection fraction approximately 30%. This is a rough estimate. The rhythm appears to be paced. Paradoxical septal motion related to the paced rhythm. Mild left ventricular hypertrophy. Grade I/IV diastolic dysfunction (abnormal relaxation filling pattern), normal to mildly elevated filling pressures. Normal right ventricular size. Mildly decreased right ventricular systolic function. Normal right ventricular systolic pressure. Catheter/pacemaker wire in the right ventricular cavity. Structurally normal mitral valve. Mild mitral valve regurgitation. From the previous study 02/17/2019, the ejection fraction may be diminished from the previously noted 40%, however, the studies are technically extremely difficult and comparison is difficult due to the poor quality study. Dr. Ananda Gardner MD (Electronically Signed) Final Date: 10 April 2023 Laboratory Results WBC 15.25 10^3/uL (3.29-11.43) H 04/13/23 04:53 RBC 4.69 10^6/uL (3.85-5.65) 04/13/23 04:53 Hgb 12.90 g/dL (11.27-16.99) 04/13/23 04:53 Hct 40.5 % (37-53) 04/13/23 04:53 MCV 86.4 fl (82-101) 04/13/23 04:53 MCH 27.5 pg (27-33) 04/13/23 04:53 MCHC 31.9 g/dL (30-55) 04/13/23 04:53 RDW 14.6 % (12.1-15.1) 04/13/23 04:53 Plt Count 243 10^3/cmm (157-399) 04/13/23 04:53 MPV 9.0 fL (7.4-10.4) 04/13/23 04:53 Neut % (Auto) 86.2 % 04/13/23 04:53 Lymph % (Auto) 6.8 % 04/13/23 04:53 Becker % (Auto) 6.4 % 04/13/23 04:53 Eos % (Auto) 0.0 % 04/13/23 04:53 Baso % (Auto) 0.1 % 04/13/23 04:53 Neut # (Auto) 13.16 10^3/uL (1.8-7.7) H 04/13/23 04:53 Lymph # (Auto) 1.0 10^3/uL (0.8-4.8) 04/13/23 04:53 Becker # (Auto) 1.0 10^3/uL (0.2-0.9) H 04/13/23 04:53 Eos # (Auto) 0.0 10^3/uL (0.0-0.8) 04/13/23 04:53 Baso # (Auto) 0.0 10^3/uL (0.0-0.1) 04/13/23 04:53 Nucleated RBC % (auto) 0 % 04/13/23 04:53 Nucleated RBCs # 0.0 /100WBC 04/13/23 04:53 PT 14.00 SECONDS (12.1-14.9) 04/10/23 05:10 INR 1.04 (0.8-1.2) 04/10/23 05:10 Specimen Type Arterial 04/10/23 04:42 Sample Site Radial, right 04/10/23 04:42 ABG pH 7.45 (7.35-7.45) 04/10/23 04:42 ABG pCO2 42.4 mmHg (35-45) 04/10/23 04:42 ABG pO2 96.6 mmHg (80.0-100.0) 04/10/23 04:42 ABG PO2/FiO2 Ratio 0 04/10/23 04:42 ABG HCO3 29.7 mmol/L (22-26) H 04/10/23 04:42 ABG Base Excess 5.1 mmol/L (-2.0-2.0) H 04/10/23 04:42 Cameron Test Pos 04/10/23 04:42 Hematocrit 46.9 % (42-52) 04/10/23 04:42 Hgb O2 Saturation 96.2 % (95-100) 04/10/23 04:42 Carboxyhemoglobin 0.8 %THgb (0.4-20.1) 04/10/23 04:42 Methemoglobin 0.4 % (0.4-1.5) 04/10/23 04:42 Total Hemoglobin 15.3 g/dL (14-18) 04/10/23 04:42 O2 Delivery Device Bipap 04/10/23 04:42 FiO2 40.0 % 04/10/23 04:42 Literacy Teacher ID [email or web address] 04/10/23 04:42 Sodium 141 mmol/L (136-145) 04/13/23 04:53 Potassium 4.1 mmol/L (3.5-5.1) 04/13/23 04:53 Chloride 104 mmol/L (98-107) 04/13/23 04:53 Carbon Dioxide 29 mmol/L (22-29) 04/13/23 04:53 Anion Gap 12.1 (5-19) 04/13/23 04:53 BUN 39 mg/dL (8-23) H 04/13/23 04:53 Creatinine 1.1 mg/dL (0.7-1.2) 04/13/23 04:53 GFR Calculation Not Reportable 04/13/23 04:53 Glucose 153 mg/dL (65-115) H 04/13/23 04:53 POC Glucose 163 mg/dL (70-110) H 04/14/23 06:48 Estimat Average Glucose 128 04/10/23 07:13 Hemoglobin A1c 6.1 % (4.0-6.0) H 04/10/23 07:13 Calculated Osmolality 304 mOsm/kg (285-295) H 04/13/23 04:53 Lactic Acid 1.5 mmol/L (0.5-2.2) 04/10/23 07:13 Calcium 8.8 mg/dL (8.5-10.5) 04/13/23 04:53 Phosphorus 3.0 mg/dL (2.5-4.5) 04/10/23 07:13 Magnesium 2.0 mg/dL (1.7-2.3) 04/10/23 07:13 Iron 55 ug/dL (59-158) L 04/12/23 04:54 TIBC 169 mcg/dl 04/12/23 04:54 % Saturation 32.5 % (20-50) 04/12/23 04:54 Unsat Iron Binding 114 ug/dL (112-347) 04/12/23 04:54 Total Bilirubin 0.5 mg/dL (0.15-1.2) 04/13/23 04:53 AST 17 U/L (0-40) 04/13/23 04:53 ALT 15 U/L (0-41) 04/13/23 04:53 Alkaline Phosphatase 70 U/L (40-130) 04/13/23 04:53 Troponin T Baseline 41 ng/L (0-15) H 04/10/23 07:13 Troponin T 120 Minute 40.90 ng/L (0-15) H 04/10/23 09:37 Delta Troponin T -0.10 ABS# (0-10) L 04/10/23 09:37 Troponin T Hi Sens 6Hr 39.85 ng/L (0-15) H 04/10/23 14:50 Troponin T Hi Sens 6Hr Delta -1.15 ng/L (0-12) L 04/10/23 14:50 C-Reactive Protein 97.0 mg/L (0.0-4.9) H 04/12/23 04:54 NT-Pro-B Natriuret Pep 31079 pg/mL (0-450) H 04/10/23 05:10 Total Protein 6.2 g/dL (6.6-8.7) L 04/13/23 04:53 Albumin 2.8 g/dL (3.5-5.2) L 04/13/23 04:53 Globulin 3.4 g/dL (1.3-4.6) 04/13/23 04:53 Triglycerides 49 mg/dL (0-150) 04/10/23 07:13 Cholesterol 107 mg/dL (0-200) 04/10/23 07:13 LDL Cholesterol, Calc 45 mg/dL (50-129) L 04/10/23 07:13 HDL Cholesterol 52 mg/dL (60-100) L 04/10/23 07:13 LDL/HDL Ratio 0.87 RATIO (0.00-3.22) 04/10/23 07:13 Cholesterol/HDL Ratio 2.06 mg/dL (1.0-5.00) 04/10/23 07:13 Vitamin B12 352 pg/mL (232-1245) 04/12/23 04:54 Folate 2.6 ng/mL (4.5-32.2) L 04/13/23 04:53 Procalcitonin 1.10 ng/mL (0-0.5) H 04/12/23 04:54 TSH 1.30 uIU/mL (0.27-4.20) 04/10/23 07:13 Urine Color Yellow (Yellow) 04/12/23 14:05 Urine Appearance Sl cloudy (CLEAR) A 04/12/23 14:05 Urine pH 5 (5-7) 04/12/23 14:05 Ur Specific [place] 1.020 (1.005-1.030) 04/12/23 14:05 Urine Protein 1+ (Negative) H 04/12/23 14:05 Urine Glucose (UA) Norm (Normal) 04/12/23 14:05 Urine Ketones Negative (Negative) 04/12/23 14:05 Urine Blood 3+ (Negative) H 04/12/23 14:05 Urine Nitrate Negative (Negative) 04/12/23 14:05 Urine Bilirubin Neg (Negative) 04/12/23 14:05 Urine Urobilinogen Norm mg/dL (Negative) 04/12/23 14:05 Ur Leukocyte Esterase Trace (Negative) H 04/12/23 14:05 Urine RBC Too numerous to cnt /hpf (0-2) H 04/12/23 14:05 Urine WBC 10-15 /hpf (0-5) H 04/12/23 14:05 Ur Squamous Epith Cells 5-10 /hpf (0-5) H 04/12/23 14:05 Amorphous Sediment Not Reportable 04/12/23 14:05 Urine Bacteria 1+ /hpf (NONE) H 04/12/23 14:05 Hyaline Casts 0-4 /lpf H 04/10/23 09:55 Urine Mucus Trace /hpf 04/10/23 09:55 Coronavirus 229E (PCR) Not detected (NOT DETECT) 04/10/23 10:45 Influenza Type A Ag negative (Negative) 04/10/23 04:53 Influenza Type B Ag negative (Negative) 04/10/23 04:53 Parainfluenza 1 (PCR) Detected (NOT DETECT) A 04/10/23 13:44 Parainfluenza 2 (PCR) Not detected (NOT DETECT) 04/10/23 13:44 Parainfluenza 3 (PCR) Not detected (NOT DETECT) 04/10/23 13:44 Parainfluenza 4 (PCR) Not detected (NOT DETECT) 04/10/23 13:44 SARS-CoV-2 (PCR) Not detected (NOT DETECT) 04/10/23 10:45 SARS-CoV-2 Ag (Rapid) negative (Negative) 04/10/23 04:53 MRSA (PCR) Not detected (NOT DETECTED) 04/12/23 14:15 TB (QFT) Gold In Tube TNP 04/10/23 18:19 TB Test (QFT) Nil Not Reportable 04/10/23 18:19 TB Test (QFT) Mitogen Not Reportable 04/10/23 18:19 TB Test Mitogen - Nil Not Reportable 04/10/23 18:19 TB Test TB -Nil Not Reportable 04/10/23 18:19 Vitals Last Vital Signs Temp 98.2 F 04/14/23 08:00 Pulse 78 04/14/23 08:00 Resp 18 04/14/23 08:00 BP 144/92 04/14/23 08:00 Pulse Ox 93 04/14/23 08:00 O2 Del Method Nasal Cannula 04/14/23 07:47 O2 Flow Rate 2 04/14/23 07:47 FiO2 26 04/11/23 11:26 Discharge Plan Discharge Patient Disposition: Home Condition: Stable Prescriptions: New levofloxacin 750 mg Tablet 750 mg PO DAILY@0600 Qty: 4 0RF Eliquis DVT-PE Treat 30D Start 5 mg (74 tabs) tablets,dose pack See Rx Instructions .ROUTE .COMPLEX Qty: 74 0RF Rx Instructions: orally per package directions prednisone 10 mg tablet See Taper PO DIRECTED Qty: 42 0RF Taper: predniSONE 60-10 60 mg Daily for 2 Days and 0 Hour 50 mg Daily for 2 Days and 0 Hour 40 mg Daily for 2 Days and 0 Hour 30 mg Daily for 2 Days and 0 Hour 20 mg Daily for 2 Days and 0 Hour 10 mg Daily for 2 Days and 0 Hour Rx Instructions: see taper instructions Continued (DME) Easy Touch Safety Lancets 32 gauge misc See Rx Instructions .Route Qty: 100 2RF Rx Instructions: use 3 times day as needed (DME) pen needle, diabetic [BD Ultra-Fine Domi Pen Needle] 32 gauge x 5/32 needle See Rx Instructions .ROUTE .MEDSUPPLY Qty: 100 5RF Rx Instructions: 3 times day as needed (DME) Easy Touch Ambrocio Link Test Strip Strip See Rx Instructions .Route Qty: 50 5RF Rx Instructions: As directed albuterol sulfate [ProAir HFA] 90 mcg/actuation HFA aerosol inhaler 2 puff INHALATION Q4H PRN (Reason: shortness of breath or wheezing) Qty: 1 2RF Breztri Aerosphere 160-9-4.8 mcg/actuation HFA aerosol inhaler 2 inh inhalation BID Qty: 10.7 2RF fluticasone propionate 50 mcg/actuation spray,suspension 2 spray INTRANASAL DAILY Qty: 9.9 2RF furosemide 40 mg tablet 40 - 80 mg PO QAM Qty: 45 2RF ipratropium-albuterol 0.5 mg-3 mg(2.5 mg base)/3 mL solution for nebulization 3 ml inhalation Q4H PRN (Reason: shortness of breath or wheezing) Qty: 300 2RF levocetirizine 5 mg tablet 5 mg PO DAILY Qty: 90 0RF metoprolol succinate 25 mg tablet extended release 24 hr 25 mg PO QAM Qty: 90 0RF Rx Instructions: note dose decrease if heart less 60 use 1/2 tablet montelukast 10 mg tablet 10 mg PO QAM Qty: 90 0RF nortriptyline 50 mg capsule 50 mg PO BEDTIME Qty: 30 2RF omeprazole 40 mg capsule,delayed release(DR/EC) 40 mg PO QAM Qty: 30 2RF Daliresp 500 mcg tablet 500 mcg PO QAM Qty: 30 2RF rosuvastatin 40 mg tablet 40 mg PO DAILY 30 Days Qty: 30 2RF sucralfate [Carafate] 1 gram tablet 1 g PO BID Qty: 60 2RF Adult Low Dose Aspirin 81 mg tablet,delayed release (DR/EC) 81 mg PO QAM Qty: 30 5RF Fasenra Pen 30 mg/mL auto-injector 30 mg SUBCUT .8 weeks Qty: 1 6RF Rx Instructions: maintenance dose ascorbic acid (vitamin C) [Vitamin C] 500 mg Tablet 500 mg PO DAILY cinnamon bark [Cinnamon] 500 mg Capsule 500 mg PO DAILY Probiotic Blend 2 billion cell-50 mg Capsule 1 cap PO DAILY Rx Instructions: give with meal/snack semaglutide 0.25 mg or 0.5 mg (2 mg/3 mL) pen injector 0.25 mg SUBCUT Q7D Rx Instructions: on wednesday Fish Oil Concentrate 1,000 mg Capsule See Rx Instructions .ROUTE .COMPLEX Rx Instructions: take one cap po in the am and two caps at bedtime Flomax 0.4 mg capsule 0.4 mg PO BEDTIME Held prednisone 5 mg tablet 5 mg PO DAILY Qty: 30 3RF Hold Instructions: Hold for week using 10 mg Discontinued doxycycline hyclate [Vibramycin] 100 mg capsule 100 mg PO BID Qty: 20 0RF Rx Instructions: for 10 days (rx filled 04/07/23) prednisone 10 mg tablet 10 mg PO DAILY Qty: 7 0RF Rx Instructions: for 7 days (rx filled 04/07/23) Discharge Orders: Discharge Order (Routine); Ordered 04/14/23 Ordered By: Feliz Perea Referrals: Jordy Singer FNP-C [Primary Care Provider] - 04/21/23 11:20 am Discharge Diet: Cardiac and Diabetic Discharge Activity: Resume usual activity and Increase activity as tolerated Patient Instructions: Using Oxygen at Home (GEN), Pneumonia (GEN), Opioid Safety Activity Restrictions/Additional Instructions: Take Eliquis 10 mg twice daily for next 7 days followed by 5 mg twice daily for the rest of her life. Take Levaquin which is the antibiotic for next 4 days. Do not take your home dose of prednisone for now. Take prednisone taper as described. Once the prednisone taper has finished you can continue 5 mg of prednisone daily. Continue nebulization treatment as before. Please make sure you are using oxygen as prescribed. Follow-up with your primary care provider within next 1 week. Discharge Attestations Time Spent in Discharge Care*: greater than 30 min Specific Discharge Activities: educating patient, discussing with pcp/other providers, discussing with returned case inspector/social workers/dc planners, documenting/other paperwork and evaluating patient/reviewing data Status at Discharge: Cognitive status at discharge: cognitively intact , Behavioral status at discharge: cooperative , Functional status at discharge: independent ambulation , Overall status at discharge: patient is back to baseline Quality Metrics Clinical Quality Measures [ Venous Thromboembolism { Contraindication to Overlap Therapy: None; Overlap threrpy ordered; VTE Discharge Education: Education about anticoagulant therapy/Care Notes given, Education about treatment options/disease process, Medication side effects education, INR/lab monitoring education as applicable, Follow-up arranged, Other; Deep Vein Thrombosis/Pulmonary Embolism Present on Admission: Yes;}] Coding Level of Care Code 03208 Total time (in minutes) for Discharge: 60 Diagnoses Acute hypoxic respiratory failure J96.01 Pneumonia J18.9 CHF (congestive heart failure) I50.9 Gastroesophageal reflux disease without esophagitis K21.9 Esophagitis presence: without esophagitis Hx of heart artery stent Z95.5 Dyslipidemia E78.5 Type 2 diabetes mellitus with stage 2 chronic kidney disease, with long-term current use of insulin E11.22; N18.2; Z79.4 Chronic kidney disease stage: stage 2 (mild) Diabetes mellitus complication detail: with chronic kidney disease Diabetes mellitus complication status: with kidney complications Diabetes mellitus mcfp insulin use: with mcfp use Diabetes mellitus type: type 2 Klebsiella pneumonia J15.0
[2023-04-14] MEDS: methylPREDNISolone sod succ 40 mg/mL INJ IVP (10:03)
[2023-04-14 11:31] LABS: Glucose Point of Care 117 mg/dL (70-110)
[2023-04-15 12:50] LABS: MTB Complex Respiratory PCR NOT DETECTED; MTB Source SPUTUM
[2023-04-15 17:54] LABS: Histoplasma Antigen (Quant) NONE DETECTED; Histoplasma Antigen Interpreta NEGATIVE; Histoplasma Antigen Specimen URINE
[2023-04-16 18:19] LABS: Fungitell 1-3-B Glucan Assay <31 pg/mL; Interpretation NEGATIVE
[2023-04-21 17:09] LABS: Histoplasma Galactomannan Ag <0.2 ng/mL
== END 2023-04-14 14:48 | disposition home or self-care (01) | DRG 177 ==
LOC: ER 05:13 → ICU 05:42 → MEDSURG 04-11 16:32
PROVIDERS: Internal Medicine; Admitting Provider Family Medicine; Emergency Provider Emergency Medicine; PCP Nurse Practitioner; Visit Provider Student in an Organized Health Care Education/Training Program
DX: J15.0 Pneumonia due to Klebsiella pneumoniae (principal); I26.99 Other pulmonary embolism without acute cor pulmonale; I50.23 Acute on chronic systolic (congestive) heart failure; J96.21 Acute and chronic respiratory failure with hypoxia; J44.0 Chronic obstructive pulmonary disease with (acute) lower respiratory infection; J44.1 Chronic obstructive pulmonary disease with (acute) exacerbation; I13.0 Hypertensive heart and chronic kidney disease with heart failure and stage 1 through stage 4 chronic kidney disease, or unspecified chronic kidney disease; D84.821 Immunodeficiency due to drugs; J45.998 Other asthma; N18.2 Chronic kidney disease, stage 2 (mild); E11.22 Type 2 diabetes mellitus with diabetic chronic kidney disease; E78.5 Hyperlipidemia, unspecified; F41.1 Generalized anxiety disorder; K21.9 Gastro-esophageal reflux disease without esophagitis; T38.0X5A Adverse effect of glucocorticoids and synthetic analogues, initial encounter; R33.9 Retention of urine, unspecified; Z99.81 Dependence on supplemental oxygen; Z95.0 Presence of cardiac pacemaker; Z79.4 Long term (current) use of insulin; Z79.82 Long term (current) use of aspirin; Z85.038 Personal history of other malignant neoplasm of large intestine; Z90.49 Acquired absence of other specified parts of digestive tract
CPT/HCPCS: 36415; 36416; 36600; 51702; 71045; 71275; 80048; 80053; 80061; 81001; 82607; 82746; 82805; 82962; 83036; 83540; 83550; 83605; 83735; 83880; 84100; 84145; 84443; 84484; 85025; 85610; 86140; 86403; 86480; 87040; 87070; 87077; 87086; 87186; 87205; 87385; 87426; 87449; 87556; 87631; 87635; 87641; 87804; 93005; 93306; 94640; 94660; 94664; 96365; 96367; 96372; 96375; 96376; 99291; J1650; J1815; J1940; J1956; J2405; J2543; J2920; J2930; J3370; J7050; J7626; Q9967

== ENCOUNTER → 2023-04-21 11:50 | Outpatient (BNVA) | payer OTHER, MEDICAID, SELFPAY | PROVIDERS: PCP Nurse Practitioner; Visit Provider Nurse Practitioner | DX: E11.22 Type 2 diabetes mellitus with diabetic chronic kidney disease (principal); N18.2 Chronic kidney disease, stage 2 (mild); Z79.4 Long term (current) use of insulin | CPT/HCPCS: 80048; 85025 ==

== ENCOUNTER → 2023-05-07 09:56 | Outpatient (BNVA) | payer MEDICARE, MEDICAID, SELFPAY | PROVIDERS: PCP Nurse Practitioner; Visit Provider Internal Medicine Pulmonary Disease | DX: J45.50 Severe persistent asthma, uncomplicated (principal); J30.1 Allergic rhinitis due to pollen; R59.0 Localized enlarged lymph nodes | CPT/HCPCS: 99214 ==

== ENCOUNTER 2023-05-26 14:18 | Outpatient (CLI) | payer MEDICARE, MEDICAID, SELFPAY ==
--- NOTE | 2023-05-26 15:00 | CTR_ITS ---
PROCEDURE INFORMATION: Exam: CT Chest Without Contrast; Diagnostic Exam date and time: 05/26/2023 2:38 PM Age: 82 years old Clinical indication: Other: To check for resolution on lymphadenopathy; Prior surgery; Surgery date: 6+ months; Surgery type: Lung. Pacemaker TECHNIQUE: Imaging protocol: Diagnostic computed tomography of the chest without contrast. Radiation optimization: All CT scans at this facility use at least one of these dose optimization techniques: automated exposure control; mA and/or kV adjustment per patient size (includes targeted exams where dose is matched to clinical indication); or iterative reconstruction. COMPARISON: CT angio chest PE protcl [id number] 04/10/2023 3:43 PM RADIATION DOSE METRICS: Total DLP (mGy-cm): 297.6 FINDINGS: Lungs: Improved multifocal ground-glass opacities. Pleural spaces: Small bilateral pleural effusion. Heart: Coronary calcifications. No pericardial effusion. Lymph nodes: Unchanged borderline enlarged mediastinal/hilar lymph nodes up to 10 mm. Vasculature: No aortic aneurysm. Bones/joints: No acute findings Soft tissues: No acute findings. CT/CT chest con [id number] IMPRESSION: Unchanged borderline enlarged mediastinal/hilar lymph node, likely reactive. Improving multifocal lung opacities. New small bilateral pleural effusions.
== END 2023-05-26 14:19 | disposition home or self-care (01) ==
LOC: RAD 14:18
PROVIDERS: PCP Nurse Practitioner; Visit Provider Internal Medicine Pulmonary Disease
DX: R59.0 Localized enlarged lymph nodes (principal); J90 Pleural effusion, not elsewhere classified
CPT/HCPCS: 71250

== ENCOUNTER → 2023-05-27 15:40 | Outpatient (BNVA) | payer MEDICARE, MEDICAID, SELFPAY | PROVIDERS: PCP Nurse Practitioner; Visit Provider Nurse Practitioner | DX: J44.9 Chronic obstructive pulmonary disease, unspecified (principal) | CPT/HCPCS: 80053; 85025 ==

== ENCOUNTER 2023-06-30 09:39 | Inpatient (IN) | payer MEDICARE, MEDICAID, SELFPAY ==
[2023-06-30] VITALS (15 sets, daily range): BP systolic 103–127; BP diastolic 62–91; PULSE 80–94; RESP 18–26; TEMP 36.4–36.8; O2SAT 91–100; BMI 24.3; BMI 24.1
--- NOTE | 2023-06-30 09:46 | ECG_ITS ---
[facility] Test Date: 2023-06-30 Pat Name: Andrew Sainz Department: Room: Gender: Male Gear Roller: : 1940 Requested By: Yadira Reyes Order Number: [id number] Babatunde MD: Alli Quinn M.D. Measurements Intervals Hooper Rate: 81 P: 70 SD: 195 QRS: -74 QRSD: 196 T: 105 QT: 475 QTc: 554 Interpretive Statements A sensed V pacing Premature ventricular contractions Compared to ECG 04/10/2023 12:53:01 No significant changes Electronically Signed On 06-30-2023 18:39:56 CDT by Alli Quinn M.D. [id number]
--- NOTE | 2023-06-30 10:04 | XRR_ITS ---
PROCEDURE INFORMATION: Exam: XR Chest Exam date and time: 06/30/2023 10:09 AM Age: 83 years old Clinical indication: Shortness of breath; Additional info: SOB TECHNIQUE: Imaging protocol: Radiologic exam of the chest. Views: 1 view. COMPARISON: CT chest con [id number] 05/26/2023 2:38 PM FINDINGS: Tubes, catheters and devices: Cardiac pacemaker on the left with leads in satisfactory position. Lungs: Patchy infiltrates are noted throughout both lungs along with dense consolidation in both lung bases. Epifanio B lines are noted in both lung bases. Pleural spaces: A small pleural effusion is noted on the left. Heart/Mediastinum: Mild cardiomegaly is noted. Bones/joints: Unremarkable. XR/XR chest 1V portable [id number] IMPRESSION: CHF with small left pleural effusion
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
[2023-06-30] MEDS: dexamethasone 10 mg/mL INJ IVP (10:18)
[2023-06-30 10:32] LABS: Basophils % 0.1 %; Hematocrit 34.3 % (37-53); Lymphocytes % 11.8 %; Mean Corpuscular HGB Conc 30.6 g/dL (30-55); Mean Corpuscular Hemoglobin 26.4 pg (27-33); Mean Corpuscular Volume 86.4 fl (82-101); Mean Platelet Volume 8.6 fL (7.4-10.4); Monocytes # 0.8 10^3/uL (0.2-0.9); Monocytes % 9.6 %; Neutrophils # 6.75 10^3/uL (1.8-7.7); Neutrophils % 78.2 %; Nucleated Red Blood Cells % 0 %; Platelet Count 240 10^3/cmm (157-399); Red Blood Count 3.97 10^6/uL (3.85-5.65); Red Cell Distribution Width 16.4 % (12.1-15.1); White Blood Count 8.64 10^3/uL (3.29-11.43)
[2023-06-30 10:38] LABS: ABG PCO2 47.1 mmHg (35-45); ABG PH Result 7.42 (7.35-7.45); Arterial Blood Gas Hematocrit 33.4 % (42-52); Base Excess ABG 5.1 mmol/L (-2.0-2.0); Blood Gas Allen Test Pos; Blood Gas Operator Identificat WALCI; Blood Gas Sample Site Radial, left; Blood Gas Sample Type Arterial; HCO3 ABG 30.4 mmol/L (22-26); Oxygen Device NC
[2023-06-30] MEDS: ipratropium-albuterol 3 mL Neb INHALATION ×3 (10:41→20:14)
--- NOTE | 2023-06-30 10:43 | PC.PHAR ---
pt states he has a nurse that sets up his medications-pt states he doesnt know what company she is from-pt could verify his otc medications and semaglutide and fasenra but not all his prescription medications states he gets his medication from [facility] and states only takes what they fill-pt states he thinks the dr put his prednisone 5mg daily on hold ext shows last filled 05/25/23 30d/s-medications entered are from what the pt could verify and what ext med history shows has been filled recently
[2023-06-30] MEDS: FUROsemide 10 mg/mL SDV 10mL 60 MG IVP (10:52)
[2023-06-30 10:54] LABS: INR 1.24 (0.8-1.2)
[2023-06-30 10:57] LABS: Alanine Aminotransferase 18 U/L (0-41); Albumin Level 3.1 g/dL (3.5-5.2); Alkaline Phosphatase 80 U/L (40-130); Anion Gap 10.7 (5-19); Aspartate Amino Transferase 22 U/L (0-40); Blood Urea Nitrogen 13 mg/dL (8-23); Calcium 8.6 mg/dL (8.5-10.5); Carbon Dioxide 31 mmol/L (22-29); Chloride 100 mmol/L (98-107); Globulin 3.2 g/dL (1.3-4.6); Glucose 115 mg/dL (65-115); NT Pro B Type Natriuretic Pept 8430 pg/mL (0-450); Osmolality Calculated 287 mOsm/kg (285-295); Potassium 3.7 mmol/L (3.5-5.1); Sodium 138 mmol/L (136-145); Total Bilirubin 0.5 mg/dL (0.15-1.2); Total Protein 6.3 g/dL (6.6-8.7)
--- NOTE | 2023-06-30 12:04 | PC.NURSE ---
Medication Delay: waiting on blood cultures to be drawn before abx administration @0010
--- NOTE | 2023-06-30 12:05 | PC.NURSE ---
per Dr. Reyes to ambulate pt. pt has shuffling gait noted, pt states that is normal but he feels increasingly weak and SOB with ambulation trial. Dr. Reyes notified
[2023-06-30] MEDS: cefTRIAXone 1,000 MG in sodium chloride 0.9% (plus) 50 ML 100 MG IV (13:10)
--- NOTE | 2023-06-30 13:14 | ECG_ITS ---
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 Measurements Intervals [place] Rate: 82 P: 67 PA: 198 QRS: -75 QRSD: 201 T: 105 QT: 477 QTc: 559 Interpretive Statements ELECTRONIC VENTRICULAR PACEMAKER ABNORMAL RHYTHM ECG Compared to ECG 06/30/2023 09:46:24 No significant changes Electronically Signed On 06-30-2023 18:42:16 CDT by Alli Quinn M.D. [email or web address]
[2023-06-30] MEDS: azithromycin 500 MG in sodium chloride 0.9% 250 ML 250 MG IV (13:37)
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
[2023-06-30 14:40] LABS: Troponin(5th) Baseline 46 ng/L (0-15)
[2023-06-30 14:51] LABS: Estmated Average Glucose 108; Hemoglobin A1C 5.4 % (4.0-6.0)
[2023-06-30 15:00] LABS: Chol HDL Ratio 2.04 mg/dL (1.0-5.00); Cholesterol 112 mg/dL (0-200); HDL Cholesterol 55 mg/dL (60-100); LDL Cholesterol Calculated 49 mg/dL (50-129); LDL HDL Ratio 0.89 RATIO (0.00-3.22); Thyroid Stimulating Hormone 2.11 uIU/mL (0.27-4.20); Triglycerides 41 mg/dL (0-150)
--- NOTE | 2023-06-30 15:15 | ECG_ITS ---
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 Measurements Intervals [place] Rate: 89 P: 0 MT: 0 QRS: -76 QRSD: 190 T: 104 QT: 459 QTc: 560 Interpretive Statements ELECTRONIC VENTRICULAR PACEMAKER ABNORMAL RHYTHM ECG Compared to ECG 06/30/2023 13:28:42 No significant changes Electronically Signed On 06-30-2023 18:49:11 CDT by Alli Quinn M.D. [id number]
[2023-06-30 16:45] LABS: Glucose Point of Care 154 mg/dL (70-110)
[2023-06-30] MEDS: apixaban 5 mg Tablet PO (16:53)
[2023-06-30] MEDS: pantoprazole 40 mg SDV IVP (16:53)
[2023-06-30] MEDS: sucralfate 1 gm Tablet PO (16:53)
[2023-06-30 16:58] LABS: Troponin 5 2HR 42.03 ng/L (0-15)
[2023-06-30 16:59] LABS: Troponin 5 2HR Delta -3.97 ABS# (0-10)
[2023-06-30 18:12] LABS: Adenovirus Not Detected (NOT DETECT); Chlamydia Pneumoniae Not Detected (NOT DETECT); Coronavirus 229E,HKU1,NL63,OC4 Not Detected (NOT DETECT); Human Metapneumovirus Not Detected (NOT DETECT); Human Rhinovirus/Enterovirus Not Detected (NOT DETECT); Influenza A Not Detected (NOT DETECT); Influenza A H1 Not Detected (NOT DETECT); Influenza A H1-2009 Not Detected (NOT DETECT); Influenza A H3 Not Detected (NOT DETECT); Influenza B Not Detected (NOT DETECT); Mycoplasma Pneumoniae Not Detected (NOT DETECT); Parainfluenza Virus Type 1 Not Detected (NOT DETECT); Parainfluenza Virus Type 2 Not Detected (NOT DETECT); Parainfluenza Virus Type 3 Not Detected (NOT DETECT); Parainfluenza Virus Type 4 Not Detected (NOT DETECT); Respiratory Syncytial Virus A Not Detected (NOT DETECT); Respiratory Syncytial Virus B Not Detected (NOT DETECT); SARS-COV-2 Not Detected (NOT DETECT)
--- NOTE | 2023-06-30 19:11 | ECG_ITS ---
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 Measurements Intervals [place] Rate: 89 P: 83 ID: [id number] QRS: -74 QRSD: 187 T: 107 QT: 452 QTc: 551 Interpretive Statements ELECTRONIC VENTRICULAR PACEMAKER Compared to ECG 06/30/2023 15:15:48 No significant changes Electronically Signed On 07-02-2023 17:13:43 CDT by Jose Mendiola M.D. [id number]
[2023-06-30] MEDS: budesonide 0.5 mg/2 mL Neb INHALATION (20:14)
[2023-06-30 20:18] LABS: Troponin 5 6HR 38.14 ng/L (0-15); Troponin 5 6HR Delta -7.86 ng/L (0-12)
[2023-06-30 20:44] LABS: Glucose Point of Care 225 mg/dL (70-110)
[2023-06-30] MEDS: tamsulosin 0.4 mg Capsule 0.400000000000000022 MG PO (22:35)
[2023-07-01] VITALS (16 sets, daily range): BP systolic 102–122; BP diastolic 60–67; PULSE 73–95; RESP 16–19; TEMP 36.5–36.7; O2SAT 95–100
[2023-07-01 02:33] LABS: Bacillus cereus group Not Detected (NOT DETECT); Bacillus subtillis group Not Detected (NOT DETECT); Corynebacterium Not Detected (NOT DETECT); Cutibacterium acnes (P.acnes) Not Detected (NOT DETECT); Enterococcus Not Detected (NOT DETECT); Enterococcus faecalis Not Detected (NOT DETECT); Enterococcus faecium Not Detected (NOT DETECT); Lactobacillus species Not Detected (NOT DETECT); Listeria Not Detected (NOT DETECT); Listeria monocytogenes Not Detected (NOT DETECT); Micrococcus Not Detected (NOT DETECT); Pan Candida Not Detected (NOT DETECT); Pan Gram-Negative Not Detected (NOT DETECT); Staphylococcus epidermidis Not Detected (NOT DETECT); Staphylococcus lugdunensis Not Detected (NOT DETECT); Staphylococcus species Not Detected (NOT DETECT); Streptococcus agalactiae Not Detected (NOT DETECT); Streptococcus anginosus group Not Detected (NOT DETECT); Streptococcus pneumoniae Not Detected (NOT DETECT); Streptococcus pyogenes Not Detected (NOT DETECT); Streptococcus species Detected (NOT DETECT)
[2023-07-01] MEDS: FUROsemide 10 mg/mL SDV 4mL 40 MG IVP ×2 (05:49→17:24)
[2023-07-01] MEDS: aspirin 81 mg EC Tablet PO (05:49)
[2023-07-01] MEDS: metoprolol succinate ER (24 HR) 25 mg Tablet PO (05:49)
[2023-07-01] MEDS: vancomycin 1,000 MG in sodium chloride 0.9% 250 ML 250 MG IV ×2 (05:49→16:31)
[2023-07-01 05:51] LABS: Basophils % 0.3 %; Hematocrit 34.8 % (37-53); Lymphocytes # 0.8 10^3/uL (0.8-4.8); Lymphocytes % 10.1 %; Mean Corpuscular HGB Conc 29.6 g/dL (30-55); Mean Corpuscular Hemoglobin 25.4 pg (27-33); Mean Corpuscular Volume 85.9 fl (82-101); Mean Platelet Volume 8.8 fL (7.4-10.4); Monocytes # 0.7 10^3/uL (0.2-0.9); Neutrophils % 80.3 %; Nucleated Red Blood Cells % 0 %; Platelet Count 271 10^3/cmm (157-399); Red Blood Count 4.05 10^6/uL (3.85-5.65); Red Cell Distribution Width 16.3 % (12.1-15.1); White Blood Count 7.96 10^3/uL (3.29-11.43)
[2023-07-01 06:07] LABS: Alanine Aminotransferase 17 U/L (0-41); Alkaline Phosphatase 74 U/L (40-130); Anion Gap 14.3 (5-19); Aspartate Amino Transferase 22 U/L (0-40); Blood Urea Nitrogen 25 mg/dL (8-23); Calcium 8.6 mg/dL (8.5-10.5); Carbon Dioxide 30 mmol/L (22-29); Chloride 104 mmol/L (98-107); Creatinine Clr Calc Pharmacy 51.7124; Globulin 3.2 g/dL (1.3-4.6); Glucose 132 mg/dL (65-115); Magnesium 2.1 mg/dL (1.7-2.3); Osmolality Calculated 304 mOsm/kg (285-295); Phosphorus 3.7 mg/dL (2.5-4.5); Potassium 4.3 mmol/L (3.5-5.1); Sodium 144 mmol/L (136-145); Total Bilirubin 0.4 mg/dL (0.15-1.2); Total Protein 6.2 g/dL (6.6-8.7)
[2023-07-01 06:17] LABS: NT Pro B Type Natriuretic Pept 11098 pg/mL (0-450)
[2023-07-01 06:36] LABS: Glucose Point of Care 125 mg/dL (70-110)
[2023-07-01] MEDS: budesonide 0.5 mg/2 mL Neb INHALATION ×2 (08:02→20:30)
[2023-07-01] MEDS: ipratropium-albuterol 3 mL Neb INHALATION ×4 (08:02→20:30)
[2023-07-01] MEDS: sucralfate 1 gm Tablet PO ×2 (09:04→17:18)
[2023-07-01] MEDS: atorvastatin 40 mg Tablet 80 MG PO (09:04)
[2023-07-01] MEDS: apixaban 5 mg Tablet PO ×2 (09:05→17:18)
[2023-07-01 11:19] LABS: Glucose Point of Care 92 mg/dL (70-110)
--- NOTE | 2023-07-01 12:01 | PC.NURSE ---
Inserted straight catheter to empty full bladder. Sterile technique used throughout whole procedure. 1800mL collected. Small drops of blood from urethra after procedure noted. Very uncomfortable for client, but was able to tolerate.
[2023-07-01] MEDS: cefTRIAXone 1,000 MG in sodium chloride 0.9% (plus) 50 ML 100 MG IV (12:57)
[2023-07-01] MEDS: azithromycin 500 MG in sodium chloride 0.9% 250 ML 250 MG IV (12:58)
[2023-07-01] MEDS: dexamethasone 10 mg/mL INJ 6 MG IVP (13:11)
[2023-07-01] MEDS: pantoprazole 40 mg SDV IVP (13:11)
--- NOTE | 2023-07-01 13:43 | P.PN_ITS ---
Subjective 2 Subjective: Patient was seen this morning, currently on 4 L, afebrile, continues to complain of nonproductive cough, no fevers, chills continues to have shortness of breath complaints, 404 blood cultures positive for strep species, patient is on Rocephin, vancomycin was added Vitals/I&O/Wt Last Vital Signs Temp 97.8 F 07/01/23 04:00 Pulse 79 07/01/23 11:24 Resp 18 07/01/23 11:24 BP 111/64 07/01/23 11:11 Pulse Ox 97 07/01/23 11:24 O2 Del Method Nasal Cannula 07/01/23 11:24 O2 Flow Rate 4 07/01/23 11:24 06/30/23 07/01/23 07/01/23 22:59 06:59 14:59 Intake Total 610 / 660 544.167 / 544.167 Output Total 575 / 575 300 / 875 2425 / 2425 Balance 35 / 85 -300 / -215 -1880.833 / -1880.833 Weight last 48 hrs Weight 79.634 kg Weight 78.5 kg Weight 78.925 kg Physical Exam 2 Const: COMMON NORMALS: no acute distress and patient oriented x3 Resp: COMMON NORMALS: normal respiratory effort, No retractions and No use of accessory muscles AUSCULTATION: crackles and wheezes Cardio: COMMON NORMALS: regular rate, regular rhythm, S1 normal heart sound present and S2 normal heart sound present RATE: regular rate RHYTHM: r egular rhythm HEART SOUNDS: S1 normal heart sound present and S2 normal heart sound present GI: COMMON NORMALS: Normal to inspection, nondistended, normoactive bowel sounds present and non-tender Extremity: COMMON NORMALS: no pedal edema Neuro: COMMON NORMALS: patient oriented x3 Psych: COMMON NORMALS: mental status grossly normal Data 07/01/23 04:55 07/01/23 04:55 Micro: Microbiology 06/30/23 12:52 Blood Culture - Preliminary Blood NEGATIVE TO DATE 06/30/23 12:52 Blood Culture - Preliminary Blood Streptococcus species 07/01/23 04:55 Blood Culture - Preliminary Blood SPECIMEN COLLECTED 07/01/23 04:55 Blood Culture - Preliminary Blood SPECIMEN COLLECTED A&P Assessment and plan (1) Acute hypoxic respiratory failure: (2) Community acquired pneumonia: Qualifiers: Laterality: left Lung location: lower lobe of lung Qualified Code(s): J18.9 - Pneumonia, unspecified organism (3) CHF (congestive heart failure): (4) CHF exacerbation: (5) GERD (gastroesophageal reflux disease): Qualifiers: Esophagitis presence: without esophagitis Qualified Code(s): K21.9 - Gastro-esophageal reflux disease without esophagitis (6) Hilar lymphadenopathy: (7) COPD (chronic obstructive pulmonary disease): Qualifiers: COPD type: unspecified COPD Qualified Code(s): J44.9 - Chronic obstructive pulmonary disease, unspecified (8) COPD exacerbation: (9) Streptococcal bacteremia: Plan Acute hypoxic respiratory failure ? Secondary to fluid overload elevated BNP ? Secondary to COPD exacerbation ? Secondary to pneumonia -Streptococcal bacteremia ? Plan ?monitor on MedSurg ?oxygen therapy ?DuoNeb ? Budesonide -Monitor respiratory status closely ? Decadron 6 milligrams IV push ? Continue Rocephin ? Continue azithromycin ? Vancomycin was added last night, will continue, but suspect this is strep pneumonia, ? Continue home Eliquis ? Lasix 40 mg IV twice daily -Blood cultures, respiratory viral panel, sputum cultures ? Monitor blood sugars ? Troponin series ? Full code ? Eliquis for DVT prophylaxis Attestations 2 Medical Necessity Statement*: Patient requires hospitalization for acute hypoxic respiratory failure secondary to fluid overload, COPD, pneumonia, with streptococcal bacteremia Diagnoses Acute hypoxic respiratory failure J96.01 Community acquired pneumonia J18.9 Laterality: left Lung location: lower lobe of lung CHF (congestive heart failure) I50.9 CHF exacerbation I50.9 Gastroesophageal reflux disease without esophagitis K21.9 Esophagitis presence: without esophagitis Hilar lymphadenopathy R59.0 Chronic obstructive pulmonary disease, unspecified COPD type J44.9 COPD type: unspecified COPD COPD exacerbation J44.1 Streptococcal bacteremia R78.81; B95.5
[2023-07-01 16:29] LABS: Glucose Point of Care 147 mg/dL (70-110)
[2023-07-01] MEDS: tamsulosin 0.4 mg Capsule 0.400000000000000022 MG PO (20:05)
[2023-07-01] MEDS: albuterol 2.5 mg/3 mL Neb INHALATION (23:42)
[2023-07-02] VITALS (15 sets, daily range): BP systolic 96–128; BP diastolic 50–77; PULSE 72–92; RESP 16–24; TEMP 36.4–36.6; O2SAT 97–100
[2023-07-02] MEDS: albuterol 2.5 mg/3 mL Neb INHALATION (03:54)
[2023-07-02] MEDS: FUROsemide 10 mg/mL SDV 4mL 40 MG IVP ×2 (05:30→17:19)
[2023-07-02 05:34] LABS: Basophils % 0.1 %; Hematocrit 35.8 % (37-53); Lymphocytes # 1.2 10^3/uL (0.8-4.8); Lymphocytes % 12.6 %; Mean Corpuscular HGB Conc 30.2 g/dL (30-55); Mean Corpuscular Hemoglobin 26.2 pg (27-33); Mean Corpuscular Volume 86.9 fl (82-101); Mean Platelet Volume 8.5 fL (7.4-10.4); Monocytes # 0.7 10^3/uL (0.2-0.9); Monocytes % 6.8 %; Neutrophils # 7.61 10^3/uL (1.8-7.7); Neutrophils % 80.1 %; Nucleated Red Blood Cells % 0 %; Platelet Count 282 10^3/cmm (157-399); Red Blood Count 4.12 10^6/uL (3.85-5.65); Red Cell Distribution Width 16.6 % (12.1-15.1); White Blood Count 9.51 10^3/uL (3.29-11.43)
[2023-07-02] MEDS: metoprolol succinate ER (24 HR) 25 mg Tablet PO (05:42)
[2023-07-02] MEDS: aspirin 81 mg EC Tablet PO (05:42)
[2023-07-02] MEDS: vancomycin 1,000 MG in sodium chloride 0.9% 250 ML 250 MG IV ×2 (05:44→17:33)
[2023-07-02 05:51] LABS: Alanine Aminotransferase 27 U/L (0-41); Albumin Level 3.4 g/dL (3.5-5.2); Alkaline Phosphatase 77 U/L (40-130); Anion Gap 13.1 (5-19); Aspartate Amino Transferase 30 U/L (0-40); Blood Urea Nitrogen 31 mg/dL (8-23); C Reactive Protein 8.2 mg/L (0.0-4.9); Calcium 8.9 mg/dL (8.5-10.5); Carbon Dioxide 30 mmol/L (22-29); Chloride 102 mmol/L (98-107); Globulin 3.4 g/dL (1.3-4.6); Glucose 133 mg/dL (65-115); Magnesium 2.1 mg/dL (1.7-2.3); Osmolality Calculated 300 mOsm/kg (285-295); Phosphorus 4.2 mg/dL (2.5-4.5); Potassium 4.1 mmol/L (3.5-5.1); Sodium 141 mmol/L (136-145); Total Bilirubin 0.4 mg/dL (0.15-1.2); Total Protein 6.8 g/dL (6.6-8.7)
[2023-07-02 05:59] LABS: NT Pro B Type Natriuretic Pept 9124 pg/mL (0-450)
[2023-07-02 06:39] LABS: Glucose Point of Care 120 mg/dL (70-110)
[2023-07-02] MEDS: budesonide 0.5 mg/2 mL Neb INHALATION ×2 (07:52→20:47)
[2023-07-02] MEDS: ipratropium-albuterol 3 mL Neb INHALATION ×4 (07:52→20:47)
[2023-07-02] MEDS: sucralfate 1 gm Tablet PO ×2 (09:25→17:19)
[2023-07-02] MEDS: apixaban 5 mg Tablet PO ×2 (09:25→17:19)
[2023-07-02] MEDS: atorvastatin 40 mg Tablet 80 MG PO (09:25)
[2023-07-02] MEDS: metOLazone 5 MG Tablet PO (09:54)
--- NOTE | 2023-07-02 10:10 | PC.SOCIAL ---
IMM Update Pg 2 of IMM Updated and reviewed with patient who verbalized understanding. Copy provided.
[2023-07-02 10:39] LABS: Glucose Point of Care 132 mg/dL (70-110)
[2023-07-02 11:11] LABS: Glucose Point of Care 115 mg/dL (70-110)
[2023-07-02] MEDS: cefTRIAXone 1,000 MG in sodium chloride 0.9% (plus) 50 ML 100 MG IV (12:28)
--- NOTE | 2023-07-02 13:43 | P.PN_ITS ---
Subjective 2 Subjective: Patient was seen this morning, he continues to complain of shortness of breath, productive cough, no fevers, no chills does report generalized weakness, we discussed his streptococcal bacteremia waiting on identification, he diuresed roughly 3 L yesterday will continue IV diuresis, remains afebrile, normotensive on 4 L, Vitals/I&O/Wt Last Vital Signs Temp 97.8 F 07/02/23 11:50 Pulse 83 07/02/23 11:50 Resp 20 H 07/02/23 11:50 BP 108/50 07/02/23 11:50 Pulse Ox 98 07/02/23 11:50 O2 Del Method Nasal Cannula 07/02/23 11:50 O2 Flow Rate 4 07/02/23 11:50 07/01/23 07/02/23 07/02/23 22:59 06:59 14:59 Intake Total 250 / 1040.000 536 / 536 Balance 250 / -1385.000 536 / 536 Weight last 48 hrs Weight 80.314 kg Weight 79.634 kg Weight 78.5 kg Physical Exam 2 Const: COMMON NORMALS: no acute distress and patient oriented x3 Resp: COMMON NORMALS: normal respiratory effort, No retractions and No use of accessory muscles AUSCULTATION: crackles Cardio: COMMON NORMALS: regular rate, regular rhythm, S1 normal heart sound present and S2 normal heart sound present RATE: regular rate RHYTHM: r egular rhythm HEART SOUNDS: S1 normal heart sound present and S2 normal heart sound present GI: COMMON NORMALS: Normal to inspection, nondistended, normoactive bowel sounds present and non-tender Extremity: COMMON NORMALS: no pedal edema Neuro: COMMON NORMALS: patient oriented x3 Psych: COMMON NORMALS: mental status grossly normal Data 07/02/23 05:23 07/02/23 05:23 Micro: Microbiology 07/01/23 04:55 Blood Culture - Preliminary Blood NEGATIVE TO DATE 07/01/23 04:55 Blood Culture - Preliminary Blood NEGATIVE TO DATE 06/30/23 12:52 Blood Culture - Preliminary Blood NEGATIVE TO DATE 06/30/23 12:52 Blood Culture - Preliminary Blood Streptococcus species A&P Assessment and plan (1) Acute hypoxic respiratory failure: (2) Community acquired pneumonia: Qualifiers: Laterality: left Lung location: lower lobe of lung Qualified Code(s): J18.9 - Pneumonia, unspecified organism (3) CHF (congestive heart failure): (4) CHF exacerbation: (5) GERD (gastroesophageal reflux disease): Qualifiers: Esophagitis presence: without esophagitis Qualified Code(s): K21.9 - Gastro-esophageal reflux disease without esophagitis (6) Hilar lymphadenopathy: (7) COPD (chronic obstructive pulmonary disease): Qualifiers: COPD type: unspecified COPD Qualified Code(s): J44.9 - Chronic obstructive pulmonary disease, unspecified (8) COPD exacerbation: (9) Streptococcal bacteremia: Plan Acute hypoxic respiratory failure ? Secondary to fluid overload elevated BNP, diastolic CHF exacerbation ? Secondary to COPD exacerbation ? Secondary to pneumonia -Streptococcal bacteremia ? Plan ?monitor on MedSurg ?oxygen therapy ?DuoNeb ? Budesonide -Monitor respiratory status closely ? Decadron 6 milligrams IV push ? Continue Rocephin ? Continue azithromycin ? Vancomycin was added due to concerns for strep species, will continue, but suspect this is strep pneumonia, ? Continue home Eliquis ? Lasix 40 mg IV twice daily, -3 L yesterday continue IV diuresis 1 dose p.o. metolazone -Blood cultures, respiratory viral panel, sputum cultures ? Monitor blood sugars ? Troponin series ? Full code ? Eliquis for DVT prophylaxis Plan for today continue broad-spectrum antibiotic therapy continue Decadron continue IV diuresis 1 dose of metolazone follow blood cultures Attestations 2 Medical Necessity Statement*: Patient requires hospitalization, for acute respiratory failure COPD exacerbation, pneumonia, streptococcal bacteremia, fluid overload, diastolic CHF exacerbation Diagnoses Acute hypoxic respiratory failure J96.01 Community acquired pneumonia J18.9 Laterality: left Lung location: lower lobe of lung CHF (congestive heart failure) I50.9 CHF exacerbation I50.9 Gastroesophageal reflux disease without esophagitis K21.9 Esophagitis presence: without esophagitis Hilar lymphadenopathy R59.0 Chronic obstructive pulmonary disease, unspecified COPD type J44.9 COPD type: unspecified COPD COPD exacerbation J44.1 Streptococcal bacteremia R78.81; B95.5
[2023-07-02] MEDS: pantoprazole 40 mg SDV IVP (13:45)
[2023-07-02] MEDS: dexamethasone 10 mg/mL INJ 6 MG IVP (13:50)
[2023-07-02] MEDS: azithromycin 500 MG in sodium chloride 0.9% 250 ML 250 MG IV (14:24)
[2023-07-02 16:57] LABS: Glucose Point of Care 145 mg/dL (70-110)
[2023-07-02 17:11] LABS: Vancomycin Trough 15.5 ug/mL (10-15)
[2023-07-02] MEDS: tamsulosin 0.4 mg Capsule 0.400000000000000022 MG PO (20:33)
[2023-07-02 21:05] LABS: Glucose Point of Care 160 mg/dL (70-110)
[2023-07-03] VITALS (18 sets, daily range): BP systolic 101–131; BP diastolic 57–77; PULSE 72–92; RESP 15–18; TEMP 36.5–37; O2SAT 97–99
[2023-07-03] MEDS: albuterol 2.5 mg/3 mL Neb INHALATION (00:43)
[2023-07-03 04:01] LABS: Basophils % 0.1 %; Hematocrit 35.3 % (37-53); Lymphocytes # 1.2 10^3/uL (0.8-4.8); Lymphocytes % 11.5 %; Mean Corpuscular HGB Conc 30.3 g/dL (30-55); Mean Corpuscular Volume 85.9 fl (82-101); Mean Platelet Volume 8.9 fL (7.4-10.4); Monocytes # 0.9 10^3/uL (0.2-0.9); Monocytes % 8.5 %; Neutrophils # 8.32 10^3/uL (1.8-7.7); Neutrophils % 79.5 %; Nucleated Red Blood Cells % 0 %; Platelet Count 298 10^3/cmm (157-399); Red Blood Count 4.11 10^6/uL (3.85-5.65); Red Cell Distribution Width 16.4 % (12.1-15.1); White Blood Count 10.46 10^3/uL (3.29-11.43)
[2023-07-03 04:23] LABS: Alanine Aminotransferase 28 U/L (0-41); Albumin Level 3.5 g/dL (3.5-5.2); Alkaline Phosphatase 79 U/L (40-130); Anion Gap 15.4 (5-19); Aspartate Amino Transferase 29 U/L (0-40); Blood Urea Nitrogen 40 mg/dL (8-23); C Reactive Protein 4.8 mg/L (0.0-4.9); Calcium 9.3 mg/dL (8.5-10.5); Carbon Dioxide 31 mmol/L (22-29); Chloride 98 mmol/L (98-107); Creatinine Clr Calc Pharmacy 69.1933; Globulin 2.7 g/dL (1.3-4.6); Glucose 138 mg/dL (65-115); Magnesium 1.9 mg/dL (1.7-2.3); Osmolality Calculated 302 mOsm/kg (285-295); Phosphorus 3.2 mg/dL (2.5-4.5); Potassium 4.4 mmol/L (3.5-5.1); Sodium 140 mmol/L (136-145); Total Bilirubin 0.4 mg/dL (0.15-1.2); Total Protein 6.2 g/dL (6.6-8.7)
[2023-07-03 04:46] LABS: NT Pro B Type Natriuretic Pept 10380 pg/mL (0-450)
[2023-07-03] MEDS: aspirin 81 mg EC Tablet PO (05:26)
[2023-07-03] MEDS: metoprolol succinate ER (24 HR) 25 mg Tablet PO (05:26)
[2023-07-03] MEDS: vancomycin 1,000 MG in sodium chloride 0.9% 250 ML 250 MG IV ×2 (05:27→16:26)
[2023-07-03] MEDS: FUROsemide 10 mg/mL SDV 4mL 40 MG IVP (05:44)
[2023-07-03 06:36] LABS: Glucose Point of Care 119 mg/dL (70-110)
[2023-07-03] MEDS: budesonide 0.5 mg/2 mL Neb INHALATION ×2 (07:36→20:54)
[2023-07-03] MEDS: ipratropium-albuterol 3 mL Neb INHALATION ×4 (07:36→20:54)
[2023-07-03] MEDS: apixaban 5 mg Tablet PO ×2 (08:47→17:39)
[2023-07-03] MEDS: atorvastatin 40 mg Tablet 80 MG PO (08:47)
[2023-07-03] MEDS: sucralfate 1 gm Tablet PO ×2 (08:47→17:39)
[2023-07-03 11:07] LABS: Glucose Point of Care 112 mg/dL (70-110)
[2023-07-03] MEDS: cefTRIAXone 1,000 MG in sodium chloride 0.9% (plus) 50 ML 100 MG IV (13:25)
[2023-07-03] MEDS: dexamethasone 10 mg/mL INJ 6 MG IVP (13:32)
[2023-07-03] MEDS: azithromycin 500 MG in sodium chloride 0.9% 250 ML 250 MG IV (14:07)
[2023-07-03] MEDS: pantoprazole 40 mg SDV IVP (14:08)
--- NOTE | 2023-07-03 14:12 | P.PN_ITS ---
Subjective 2 Subjective: Patient was seen this morning, we discussed his positive streptococcal blood cultures am still waiting on identification continue IV antibiotics, he tells me his breathing has improved his BNP is over 10,000 however he is on 4 L, we discussed continuing IV Lasix, continue to monitor, he is agreeable, no fevers, no chills, his productive cough has improved Vitals/I&O/Wt Last Vital Signs Temp 98.0 F 07/03/23 11:29 Pulse 72 07/03/23 11:29 Resp 16 07/03/23 11:29 BP 117/57 07/03/23 11:29 Pulse Ox 98 07/03/23 11:29 O2 Del Method Nasal Cannula 07/03/23 11:29 O2 Flow Rate 4 07/03/23 11:29 07/02/23 07/03/23 07/03/23 22:59 06:59 14:59 Intake Total 740 / 1276 300 / 300 Balance 740 / 1276 300 / 300 Weight last 48 hrs Weight 78.018 kg Weight 80.314 kg Physical Exam 2 Const: COMMON NORMALS: no acute distress and patient oriented x3 Resp: COMMON NORMALS: normal respiratory effort, No retractions and No use of accessory muscles AUSCULTATION: wheezes Cardio: COMMON NORMALS: regular rate, regular rhythm, S1 normal heart sound present and S2 normal heart sound present RATE: regular rate RHYTHM: r egular rhythm HEART SOUNDS: S1 normal heart sound present and S2 normal heart sound present GI: COMMON NORMALS: Normal to inspection, nondistended, normoactive bowel sounds present, Soft to palpation, non-tender and no bruits PALPATION: Yes Soft to palpation Extremity: COMMON NORMALS: no pedal edema Neuro: COMMON NORMALS: patient oriented x3 Psych: COMMON NORMALS: mental status grossly normal Data 07/03/23 03:36 07/03/23 03:36 A&P Assessment and plan (1) Acute hypoxic respiratory failure: (2) Community acquired pneumonia: Qualifiers: Laterality: left Lung location: lower lobe of lung Qualified Code(s): J18.9 - Pneumonia, unspecified organism (3) CHF (congestive heart failure): (4) CHF exacerbation: (5) GERD (gastroesophageal reflux disease): Qualifiers: Esophagitis presence: without esophagitis Qualified Code(s): K21.9 - Gastro-esophageal reflux disease without esophagitis (6) Hilar lymphadenopathy: (7) COPD (chronic obstructive pulmonary disease): Qualifiers: COPD type: unspecified COPD Qualified Code(s): J44.9 - Chronic obstructive pulmonary disease, unspecified (8) COPD exacerbation: (9) Streptococcal bacteremia: Plan Acute hypoxic respiratory failure ? Secondary to fluid overload elevated BNP, diastolic CHF exacerbation ? Secondary to COPD exacerbation ? Secondary to pneumonia -Streptococcal bacteremia ? Plan ?monitor on MedSurg ?oxygen therapy ?DuoNeb ? Budesonide -Monitor respiratory status closely ? De-escalate to prednisone 40 mg daily ? Continue Rocephin ? Continue azithromycin ? Vancomycin was added due to concerns for strep species, will continue, but suspect this is strep pneumonia, ? Continue home Eliquis ? Lasix 40 mg IV twice daily, continue IV diuresis -Blood cultures, respiratory viral panel, sputum cultures ? Monitor blood sugars ? Troponin series ? Full code ? Eliquis for DVT prophylaxis Plan for today due to streptococcal bacteremia continue IV antibiotics awaiting identification, continue IV diuresis continue IV antibiotics, monitor creatinine monitor electrolytes monitor blood cultures monitor for fevers, spoke to patient spoke to nursing staff Attestations 2 Medical Necessity Statement*: Patient requires hospitalization for acute hypoxic respiratory failure secondary to fluid overload, COPD, pneumonia, streptococcal bacteremia requiring IV antibiotics monitor creatinine monitor electrolytes, monitor BMP monitoring patient's clinical status Diagnoses Acute hypoxic respiratory failure J96.01 Community acquired pneumonia J18.9 Laterality: left Lung location: lower lobe of lung CHF (congestive heart failure) I50.9 CHF exacerbation I50.9 Gastroesophageal reflux disease without esophagitis K21.9 Esophagitis presence: without esophagitis Hilar lymphadenopathy R59.0 Chronic obstructive pulmonary disease, unspecified COPD type J44.9 COPD type: unspecified COPD COPD exacerbation J44.1 Streptococcal bacteremia R78.81; B95.5
[2023-07-03 17:11] LABS: Glucose Point of Care 126 mg/dL (70-110)
[2023-07-03] MEDS: tamsulosin 0.4 mg Capsule 0.400000000000000022 MG PO (20:35)
[2023-07-03 21:15] LABS: Glucose Point of Care 173 mg/dL (70-110)
[2023-07-04] VITALS (14 sets, daily range): BP systolic 118–129; BP diastolic 58–78; PULSE 69–91; RESP 16–18; TEMP 35.9–36.7; O2SAT 96–100
[2023-07-04 03:08] LABS: Basophils % 0.1 %; Lymphocytes # 1.1 10^3/uL (0.8-4.8); Lymphocytes % 10.7 %; Mean Corpuscular HGB Conc 31.4 g/dL (30-55); Mean Corpuscular Hemoglobin 26.5 pg (27-33); Mean Corpuscular Volume 84.5 fl (82-101); Mean Platelet Volume 8.6 fL (7.4-10.4); Monocytes % 9.7 %; Neutrophils # 8.13 10^3/uL (1.8-7.7); Neutrophils % 79.1 %; Nucleated Red Blood Cells % 0 %; Platelet Count 300 10^3/cmm (157-399); Red Blood Count 4.26 10^6/uL (3.85-5.65); Red Cell Distribution Width 16.1 % (12.1-15.1); White Blood Count 10.28 10^3/uL (3.29-11.43)
[2023-07-04] MEDS: albuterol 2.5 mg/3 mL Neb INHALATION (03:28)
[2023-07-04 03:30] LABS: Alanine Aminotransferase 25 U/L (0-41); Albumin Level 3.2 g/dL (3.5-5.2); Alkaline Phosphatase 78 U/L (40-130); Anion Gap 12.7 (5-19); Aspartate Amino Transferase 23 U/L (0-40); Blood Urea Nitrogen 36 mg/dL (8-23); Calcium 9.3 mg/dL (8.5-10.5); Carbon Dioxide 32 mmol/L (22-29); Chloride 100 mmol/L (98-107); Creatinine Clr Calc Pharmacy 68.3713; Globulin 3.1 g/dL (1.3-4.6); Glucose 152 mg/dL (65-115); Magnesium 1.8 mg/dL (1.7-2.3); Osmolality Calculated 301 mOsm/kg (285-295); Phosphorus 3.3 mg/dL (2.5-4.5); Potassium 4.7 mmol/L (3.5-5.1); Sodium 140 mmol/L (136-145); Total Bilirubin 0.3 mg/dL (0.15-1.2); Total Protein 6.3 g/dL (6.6-8.7)
[2023-07-04 03:32] LABS: NT Pro B Type Natriuretic Pept 9428 pg/mL (0-450)
[2023-07-04] MEDS: aspirin 81 mg EC Tablet PO (05:37)
[2023-07-04] MEDS: vancomycin 1,000 MG in sodium chloride 0.9% 250 ML 250 MG IV ×2 (05:37→17:07)
[2023-07-04] MEDS: metoprolol succinate ER (24 HR) 25 mg Tablet PO (05:38)
[2023-07-04] MEDS: atorvastatin 40 mg Tablet 80 MG PO (08:16)
[2023-07-04] MEDS: sucralfate 1 gm Tablet PO ×2 (08:16→17:08)
[2023-07-04] MEDS: apixaban 5 mg Tablet PO ×2 (08:16→17:08)
[2023-07-04] MEDS: predniSONE 20 mg Tablet 40 MG PO (08:16)
[2023-07-04 08:29] LABS: Glucose Point of Care 151 mg/dL (70-110)
[2023-07-04] MEDS: ipratropium-albuterol 3 mL Neb INHALATION ×4 (08:40→20:39)
[2023-07-04] MEDS: budesonide 0.5 mg/2 mL Neb INHALATION ×2 (08:40→20:39)
[2023-07-04] MEDS: FUROsemide 10 mg/mL SDV 4mL 40 MG IVP (09:42)
[2023-07-04 11:55] LABS: Glucose Point of Care 195 mg/dL (70-110)
[2023-07-04] MEDS: cefTRIAXone 1,000 MG in sodium chloride 0.9% (plus) 50 ML 100 MG IV (14:11)
[2023-07-04] MEDS: pantoprazole 40 mg SDV IVP (14:11)
--- NOTE | 2023-07-04 15:51 | P.PN_ITS ---
Subjective 2 Subjective: Patient was seen this morning, no shortness of breath, no cough, he is clinically improving, we discussed following his cultures, 4 out of 4 blood cultures positive for strep species, alphahemolytic species, I have still waiting identification I do not have any identification that we will continue broad-spectrum antibiotic therapy Vitals/I&O/Wt Last Vital Signs Temp 97.3 F L 07/04/23 11:10 Pulse 86 07/04/23 15:38 Resp 16 07/04/23 15:30 BP 124/58 07/04/23 11:10 Pulse Ox 99 07/04/23 15:30 O2 Del Method Nasal Cannula 07/04/23 12:12 O2 Flow Rate 3.5 07/04/23 15:30 07/04/23 07/04/23 07/04/23 06:59 14:59 22:59 Intake Total 960 / 2240 1210 / 1210 50 / 1260 Output Total 3325 / 3325 350 / 350 Balance -2365 / -1085 860 / 860 50 / 910 Weight last 48 hrs Weight 78.245 kg Weight 78.018 kg Physical Exam 2 Const: COMMON NORMALS: no acute distress and patient oriented x3 Resp: COMMON NORMALS: normal respiratory effort, No retractions and No use of accessory muscles AUSCULTATION: crackles Cardio: COMMON NORMALS: regular rate, regular rhythm, S1 normal heart sound present and S2 normal heart sound present RATE: regular rate RHYTHM: r egular rhythm HEART SOUNDS: S1 normal heart sound present and S2 normal heart sound present GI: COMMON NORMALS: Normal to inspection, nondistended, normoactive bowel sounds present and non-tender Extremity: COMMON NORMALS: no pedal edema Neuro: COMMON NORMALS: patient oriented x3 Psych: COMMON NORMALS: mental status grossly normal Data 07/04/23 02:46 07/04/23 02:46 Micro: Microbiology 07/03/23 23:05 Gram Stain - Final Sputum - Expectorated Sputum 06/30/23 12:52 Blood Culture - Preliminary Blood Strep species, alpha hemolytic A&P Assessment and plan (1) Acute hypoxic respiratory failure: (2) Community acquired pneumonia: Qualifiers: Laterality: left Lung location: lower lobe of lung Qualified Code(s): J18.9 - Pneumonia, unspecified organism (3) CHF (congestive heart failure): (4) CHF exacerbation: (5) GERD (gastroesophageal reflux disease): Qualifiers: Esophagitis presence: without esophagitis Qualified Code(s): K21.9 - Gastro-esophageal reflux disease without esophagitis (6) Hilar lymphadenopathy: (7) COPD (chronic obstructive pulmonary disease): Qualifiers: COPD type: unspecified COPD Qualified Code(s): J44.9 - Chronic obstructive pulmonary disease, unspecified (8) COPD exacerbation: (9) Streptococcal bacteremia: Plan Acute hypoxic respiratory failure ? Secondary to fluid overload elevated BNP, diastolic CHF exacerbation ? Secondary to COPD exacerbation ? Secondary to pneumonia -Streptococcal bacteremia ? Plan ?monitor on MedSurg ?oxygen therapy ?DuoNeb ? Budesonide -Monitor respiratory status closely ? De-escalate to prednisone 40 mg daily ? Continue Rocephin ? stop azithromycin ? Vancomycin was added due to concerns for strep species, will continue, but suspect this is strep pneumonia, ? Continue home Eliquis ? Lasix 40 mg IV twice daily, continue IV diuresis -Blood cultures, respiratory viral panel, sputum cultures ? Monitor blood sugars ? Troponin series ? Full code ? Eliquis for DVT prophylaxis Plan for today due to streptococcal bacteremia continue IV antibiotics awaiting identification, continue IV diuresis continue IV antibiotics, monitor creatinine monitor electrolytes monitor blood cultures monitor for fevers, spoke to patient spoke to nursing staff, spoke to micro, crackle on exam elevated bmp 1 dose IV lasix Attestations 2 Medical Necessity Statement*: Patient requires hospitalization for streptococcal bacteremia, respiratory failure, fluid overload requiring IV diuresis currently receiving vancomycin, Rocephin, streptococcal species and blood cultures 4 out of 4 Diagnoses Acute hypoxic respiratory failure J96.01 Community acquired pneumonia J18.9 Laterality: left Lung location: lower lobe of lung CHF (congestive heart failure) I50.9 CHF exacerbation I50.9 Gastroesophageal reflux disease without esophagitis K21.9 Esophagitis presence: without esophagitis Hilar lymphadenopathy R59.0 Chronic obstructive pulmonary disease, unspecified COPD type J44.9 COPD type: unspecified COPD COPD exacerbation J44.1 Streptococcal bacteremia R78.81; B95.5
[2023-07-04 16:56] LABS: Glucose Point of Care 163 mg/dL (70-110)
[2023-07-04 21:12] LABS: Glucose Point of Care 183 mg/dL (70-110)
[2023-07-04] MEDS: tamsulosin 0.4 mg Capsule 0.400000000000000022 MG PO (21:43)
[2023-07-05] VITALS (16 sets, daily range): BP systolic 121–133; BP diastolic 53–72; PULSE 70–84; RESP 16–20; TEMP 36.4–36.7; O2SAT 97–100
[2023-07-05] MEDS: albuterol 2.5 mg/3 mL Neb INHALATION (02:05)
[2023-07-05 03:54] LABS: Basophils % 0.2 %; Lymphocytes # 1.4 10^3/uL (0.8-4.8); Lymphocytes % 11.2 %; Mean Corpuscular HGB Conc 31.1 g/dL (30-55); Mean Corpuscular Hemoglobin 26.4 pg (27-33); Mean Corpuscular Volume 85.1 fl (82-101); Mean Platelet Volume 8.7 fL (7.4-10.4); Monocytes # 1.1 10^3/uL (0.2-0.9); Monocytes % 8.9 %; Neutrophils # 9.91 10^3/uL (1.8-7.7); Neutrophils % 79.3 %; Nucleated Red Blood Cells % 0 %; Platelet Count 305 10^3/cmm (157-399); Red Blood Count 4.35 10^6/uL (3.85-5.65); White Blood Count 12.49 10^3/uL (3.29-11.43)
[2023-07-05 04:09] LABS: Vancomycin Trough 16.2 ug/mL (10-15)
[2023-07-05 04:11] LABS: Anion Gap 11.3 (5-19); Blood Urea Nitrogen 42 mg/dL (8-23); Calcium 9.3 mg/dL (8.5-10.5); Carbon Dioxide 31 mmol/L (22-29); Chloride 102 mmol/L (98-107); Creatinine Clr Calc Pharmacy 61.6073; Glucose 169 mg/dL (65-115); Osmolality Calculated 304 mOsm/kg (285-295); Potassium 4.3 mmol/L (3.5-5.1); Sodium 140 mmol/L (136-145)
[2023-07-05] MEDS: vancomycin 1,000 MG in sodium chloride 0.9% 250 ML 250 MG IV (05:40)
[2023-07-05] MEDS: metoprolol succinate ER (24 HR) 25 mg Tablet PO (05:42)
[2023-07-05] MEDS: aspirin 81 mg EC Tablet PO (05:42)
[2023-07-05 06:26] LABS: Glucose Point of Care 102 mg/dL (70-110)
[2023-07-05] MEDS: budesonide 0.5 mg/2 mL Neb INHALATION ×2 (08:10→20:59)
[2023-07-05] MEDS: ipratropium-albuterol 3 mL Neb INHALATION ×4 (08:10→20:59)
[2023-07-05] MEDS: sucralfate 1 gm Tablet PO ×2 (08:27→17:39)
[2023-07-05] MEDS: apixaban 5 mg Tablet PO ×2 (08:27→17:39)
[2023-07-05] MEDS: atorvastatin 40 mg Tablet 80 MG PO (08:27)
[2023-07-05] MEDS: predniSONE 20 mg Tablet 40 MG PO (08:27)
--- NOTE | 2023-07-05 10:16 | PC.SOCIAL ---
IMM Update pg 2 of IMM updated and reviewed w/ patient. Copy provided and copy dated, initialed and placed in chart.
[2023-07-05 10:56] LABS: Glucose Point of Care 173 mg/dL (70-110)
[2023-07-05] MEDS: insulin lispro 100 unit/1 mL SUBCUT ×3 (11:37→22:02)
--- NOTE | 2023-07-05 11:39 | PC.NURSE ---
Patient blood glucose 173 via POC. Physician notified and physician ordered low dose sliding scale.
[2023-07-05] MEDS: pantoprazole 40 mg SDV IVP (14:28)
[2023-07-05] MEDS: cefTRIAXone 1,000 MG in sodium chloride 0.9% (plus) 50 ML 100 MG IV (14:28)
--- NOTE | 2023-07-05 15:43 | P.PN_ITS ---
Subjective 2 Subjective: Patient was seen this morning afebrile, normotensive, no fevers, no chills, overall he is doing well ? Patient's blood cultures have been updated, Streptococcus mitis oralis, given his pneumonia, this is likely real infection he has increased risk of endocarditis, will treat with IV Rocephin, for a total of 2 weeks, since negative blood cultures of 10 more days, placed orders for midline, spoke to nurse case management about arranging outpatient antibiotics spoke to nursing staff, Vitals/I&O/Wt Last Vital Signs Temp 97.5 F L 07/05/23 11:49 Pulse 72 07/05/23 15:32 Resp 16 07/05/23 15:25 BP 122/71 07/05/23 11:49 Pulse Ox 99 07/05/23 15:25 O2 Del Method Nasal Cannula 07/05/23 15:25 O2 Flow Rate 4 07/05/23 15:25 07/05/23 07/05/23 07/05/23 06:59 14:59 22:59 Intake Total 1240 / 1240 50 / 1290 Balance 1240 / 1240 50 / 1290 Weight last 48 hrs Weight 78.953 kg Weight 78.245 kg Physical Exam 2 Const: COMMON NORMALS: no acute distress and patient oriented x3 Resp: COMMON NORMALS: normal respiratory effort, No retractions, No use of accessory muscles and clear to auscultation bilaterally AUSCULTATION: clear to auscultation bilaterally Cardio: COMMON NORMALS: regular rate, regular rhythm, S1 normal heart sound present and S2 normal heart sound present RATE: regular rate RHYTHM: r egular rhythm HEART SOUNDS: S1 normal heart sound present and S2 normal heart sound present GI: COMMON NORMALS: Normal to inspection, nondistended, normoactive bowel sounds present and non-tender Extremity: COMMON NORMALS: no pedal edema Neuro: COMMON NORMALS: patient oriented x3 Psych: COMMON NORMALS: mental status grossly normal Data 07/05/23 03:18 07/05/23 03:18 Micro: Microbiology 06/30/23 12:52 Blood Culture - Final Blood Streptococcus mitis oralis 06/30/23 12:52 Blood Culture - Final Blood Streptococcus mitis oralis#3 07/03/23 23:05 Gram Stain - Final Sputum - Expectorated Sputum Sputum Culture - Preliminary A&P Assessment and plan (1) Acute hypoxic respiratory failure: (2) Community acquired pneumonia: Qualifiers: Laterality: left Lung location: lower lobe of lung Qualified Code(s): J18.9 - Pneumonia, unspecified organism (3) CHF (congestive heart failure): (4) CHF exacerbation: (5) GERD (gastroesophageal reflux disease): Qualifiers: Esophagitis presence: without esophagitis Qualified Code(s): K21.9 - Gastro-esophageal reflux disease without esophagitis (6) Hilar lymphadenopathy: (7) COPD (chronic obstructive pulmonary disease): Qualifiers: COPD type: unspecified COPD Qualified Code(s): J44.9 - Chronic obstructive pulmonary disease, unspecified (8) COPD exacerbation: (9) Streptococcal bacteremia: Plan Acute hypoxic respiratory failure ? Secondary to fluid overload elevated BNP, diastolic CHF exacerbation ? Secondary to COPD exacerbation ? Secondary to pneumonia, with Streptococcus mitis oralis bacteremia -Streptococcal mitis oralis bacteremia, sensitive to Rocephin ? Plan ?monitor on MedSurg ?oxygen therapy ?DuoNeb ? Budesonide -Monitor respiratory status closely ? De-escalate to prednisone 40 mg daily ? Continue Rocephin, plan is midline, will require total of 2 weeks of IV antibiotics this negative blood cultures, 10 remaining doses ? stop azithromycin ? Stop vancomycin ? Continue home Eliquis ? Lasix 40 mg IV twice daily, continue IV diuresis -Blood cultures, respiratory viral panel, sputum cultures ? Monitor blood sugars ? Troponin series ? Full code ? Eliquis for DVT prophylaxis Plan for today due to streptococcal mitis oralis bacteremia sensitive to Rocephin, requiring IV antibiotics on discharge place midline arrange outpatient IV antibiotics, continue fluid restriction monitoring respiratory status Attestations 2 Medical Necessity Statement*: Patient requires hospitalization for Streptococcus mitis oralis bacteremia requiring IV antibiotics Diagnoses Acute hypoxic respiratory failure J96.01 Community acquired pneumonia J18.9 Laterality: left Lung location: lower lobe of lung CHF (congestive heart failure) I50.9 CHF exacerbation I50.9 Gastroesophageal reflux disease without esophagitis K21.9 Esophagitis presence: without esophagitis Hilar lymphadenopathy R59.0 Chronic obstructive pulmonary disease, unspecified COPD type J44.9 COPD type: unspecified COPD COPD exacerbation J44.1 Streptococcal bacteremia R78.81; B95.5
[2023-07-05 16:52] LABS: Glucose Point of Care 195 mg/dL (70-110)
[2023-07-05 20:34] LABS: Glucose Point of Care 182 mg/dL (70-110)
[2023-07-05] MEDS: tamsulosin 0.4 mg Capsule 0.400000000000000022 MG PO (22:03)
[2023-07-06] VITALS (8 sets, daily range): BP systolic 125–148; BP diastolic 58–81; PULSE 72–91; RESP 16–18; TEMP 36.4–36.8; O2SAT 97–100
[2023-07-06 04:54] LABS: Basophils % 0.2 %; Hematocrit 39.4 % (37-53); Lymphocytes # 1.9 10^3/uL (0.8-4.8); Mean Corpuscular HGB Conc 30.2 g/dL (30-55); Mean Corpuscular Hemoglobin 26.2 pg (27-33); Mean Corpuscular Volume 86.8 fl (82-101); Mean Platelet Volume 8.8 fL (7.4-10.4); Monocytes # 1.4 10^3/uL (0.2-0.9); Monocytes % 10.2 %; Neutrophils # 10.08 10^3/uL (1.8-7.7); Neutrophils % 75.3 %; Nucleated Red Blood Cells % 0 %; Platelet Count 311 10^3/cmm (157-399); Red Blood Count 4.54 10^6/uL (3.85-5.65); Red Cell Distribution Width 16.1 % (12.1-15.1); White Blood Count 13.39 10^3/uL (3.29-11.43)
[2023-07-06 05:11] LABS: Anion Gap 10.5 (5-19); Blood Urea Nitrogen 41 mg/dL (8-23); Calcium 9.4 mg/dL (8.5-10.5); Carbon Dioxide 33 mmol/L (22-29); Chloride 104 mmol/L (98-107); Glucose 126 mg/dL (65-115); Osmolality Calculated 308 mOsm/kg (285-295); Potassium 4.5 mmol/L (3.5-5.1); Sodium 143 mmol/L (136-145)
[2023-07-06] MEDS: aspirin 81 mg EC Tablet PO (05:13)
[2023-07-06] MEDS: metoprolol succinate ER (24 HR) 25 mg Tablet PO (05:13)
[2023-07-06 06:22] LABS: Glucose Point of Care 140 mg/dL (70-110)
[2023-07-06] MEDS: sucralfate 1 gm Tablet PO (08:27)
[2023-07-06] MEDS: atorvastatin 40 mg Tablet 80 MG PO (08:27)
[2023-07-06] MEDS: apixaban 5 mg Tablet PO (08:27)
[2023-07-06] MEDS: predniSONE 20 mg Tablet 40 MG PO (08:30)
[2023-07-06] MEDS: ipratropium-albuterol 3 mL Neb INHALATION ×2 (08:54→11:00)
[2023-07-06] MEDS: budesonide 0.5 mg/2 mL Neb INHALATION (08:54)
[2023-07-06 10:55] LABS: Glucose Point of Care 157 mg/dL (70-110)
--- NOTE | 2023-07-06 12:23 | PICC.NOTE ---
?0710 Midline placed to left basilic vein. Referred to vascular access nurse for midline placement due to 14 days of antibiotic therapy upon discharge. Risks and benefits discussed and informed consent obtained. Left arm assessed with vein straight, and apparent best choice for placement. Using sterile technique and MST, vein accessed x 1 stick. Mid-arm circumference measured 10 cm from AC 25cm. Trimmed cath 10 cm with 0 cm external length noted. Line secured with stat-lock. Insertion site covered with Biopatch and TSM. Report given to bedside nurse.
[2023-07-06] MEDS: cefTRIAXone 1,000 MG in sodium chloride 0.9% (plus) 50 ML 100 MG IV (12:59)
--- NOTE | 2023-07-06 12:59 | PM.DCS ---
Discharge Providers Date of Admission: 06/30/23 14:23 Date of Discharge: July 06, 2023 Attending Provider at Admission: Sundeep Resendez MD Attending Provider at Discharge: Sundeep Resendez MD Primary Care Provider: SIERRA Andrew Diagnoses at Discharge Discharge Diagnosis (1) Acute hypoxic respiratory failure: Status: Acute (2) Community acquired pneumonia: Status: Acute Qualifiers: Laterality: left Lung location: lower lobe of lung Qualified Code(s): J18.9 - Pneumonia, unspecified organism (3) CHF (congestive heart failure): Status: Acute (4) CHF exacerbation: Status: Acute (5) GERD (gastroesophageal reflux disease): Status: Chronic Qualifiers: Esophagitis presence: without esophagitis Qualified Code(s): K21.9 - Gastro-esophageal reflux disease without esophagitis (6) Hilar lymphadenopathy: Status: Acute (7) COPD (chronic obstructive pulmonary disease): Status: Chronic Qualifiers: COPD type: unspecified COPD Qualified Code(s): J44.9 - Chronic obstructive pulmonary disease, unspecified (8) COPD exacerbation: Status: Acute (9) Streptococcal bacteremia: Status: Acute Reason for Visit Reason for Visit: SOB Hospital Course Hospital Course Andrew Sainz is a 83 year old male with a past medical history of eosinophilic asthma, COPD, history of pulmonary embolism, history of recent hospitalization for pneumonia, pulmonary embolism, on anticoagulation, history of pneumonia, who presents to [facility] due to increased shortness of breath, increased shortness of breath with exertion, nonproductive cough, no fevers, chills, no lower extremity edema no chest pain, no recent travel, no recent sick contacts, but has been hospitalized for pneumonia, This is a 83-year-old male who presented to [facility] for acute hypoxic respiratory failure secondary to fluid overload, diastolic CHF exacerbation COPD exacerbation pneumonia, with streptococcal mitis oralis bacteremia requiring IV diuresis, steroid therapy, broad-spectrum antibiotic therapy, overall clinically improved, will be discharged on 10 remaining days of IV Rocephin 1 g every 24 hours, for Streptococcus mitis oralis bacteremia, repeat blood cultures so far negative, remains afebrile, remove midline thereafter. Follow-up with pulmonary follow-up with primary care as outpatient. Physical Exam Const: COMMON NORMALS: no acute distress and patient oriented x3 Resp: COMMON NORMALS: normal respiratory effort, No retractions, No use of accessory muscles and clear to auscultation bilaterally AUSCULTATION: clear to auscultation bilaterally Cardio: COMMON NORMALS: regular rate, regular rhythm, S1 normal heart sound present and S2 normal heart sound present RATE: regular rate RHYTHM: regular rhythm HEART SOUNDS: S1 normal heart sound present and S2 normal heart sound present GI: COMMON NORMALS: Normal to inspection, nondistended, normoactive bowel sounds present and non-tender Extremity: COMMON NORMALS: no pedal edema Neuro: COMMON NORMALS: patient oriented x3 Psych: COMMON NORMALS: mental status grossly normal Discharge Data Studies Completed and Pending Completed Studies During Hospitalization Category Date Time Status XR chest 1V portable [id number] Stat Exams 06/30/23 10:04 Completed Pending at discharge Category Date Time Status Basic Metabolic Panel AM LABS Lab 07/07/23 04:00 Ordered Complete Blood Count w/Auto AM LABS Lab 07/07/23 04:00 Ordered Radiology Impressions Chest X-Ray 06/30/23 10:04 IMPRESSION: CHF with small left pleural effusion Laboratory Results WBC 13.39 10^3/uL (3.29-11.43) H 07/06/23 04:32 RBC 4.54 10^6/uL (3.85-5.65) 07/06/23 04:32 Hgb 11.90 g/dL (11.27-16.99) 07/06/23 04:32 Hct 39.4 % (37-53) 07/06/23 04:32 MCV 86.8 fl (82-101) 07/06/23 04:32 MCH 26.2 pg (27-33) L 07/06/23 04:32 MCHC 30.2 g/dL (30-55) 07/06/23 04:32 RDW 16.1 % (12.1-15.1) H 07/06/23 04:32 Plt Count 311 10^3/cmm (157-399) 07/06/23 04:32 MPV 8.8 fL (7.4-10.4) 07/06/23 04:32 Neut % (Auto) 75.3 % 07/06/23 04:32 Lymph % (Auto) 14.0 % 07/06/23 04:32 [place] % (Auto) 10.2 % 07/06/23 04:32 Eos % (Auto) 0.0 % 07/06/23 04:32 Baso % (Auto) 0.2 % 07/06/23 04:32 Neut # (Auto) 10.08 10^3/uL (1.8-7.7) H 07/06/23 04:32 Lymph # (Auto) 1.9 10^3/uL (0.8-4.8) 07/06/23 04:32 [place] # (Auto) 1.4 10^3/uL (0.2-0.9) H 07/06/23 04:32 Eos # (Auto) 0.0 10^3/uL (0.0-0.8) 07/06/23 04:32 Baso # (Auto) 0.0 10^3/uL (0.0-0.1) 07/06/23 04:32 Nucleated RBC % (auto) 0 % 07/06/23 04:32 Nucleated RBCs # 0.0 /100WBC 07/06/23 04:32 PT 16.00 SECONDS (12.1-14.9) H 06/30/23 10:14 INR 1.24 (0.8-1.2) H 06/30/23 10:14 Specimen Type Arterial 06/30/23 10:27 Sample Site Radial, left 06/30/23 10:27 ABG pH 7.42 (7.35-7.45) 06/30/23 10:27 ABG pCO2 47.1 mmHg (35-45) H 06/30/23 10:27 ABG pO2 145.0 mmHg (80.0-100.0) H 06/30/23 10:27 ABG HCO3 30.4 mmol/L (22-26) H 06/30/23 10:27 ABG Base Excess 5.1 mmol/L (-2.0-2.0) H 06/30/23 10:27 [place] Test Pos 06/30/23 10:27 Hematocrit 33.4 % (42-52) L 06/30/23 10:27 O2 Delivery Device Nc 06/30/23 10:27 O2 Liters/Min 3.0 % 06/30/23 10:27 Name Plate Stamping Machine Operator ID [place] 06/30/23 10:27 Sodium 143 mmol/L (136-145) 07/06/23 04:32 Potassium 4.5 mmol/L (3.5-5.1) 07/06/23 04:32 Chloride 104 mmol/L (98-107) 07/06/23 04:32 Carbon Dioxide 33 mmol/L (22-29) H 07/06/23 04:32 Anion Gap 10.5 (5-19) 07/06/23 04:32 BUN 41 mg/dL (8-23) H 07/06/23 04:32 Creatinine 1.0 mg/dL (0.7-1.2) 07/06/23 04:32 GFR Calculation Not Reportable 07/06/23 04:32 Glucose 126 mg/dL (65-115) H 07/06/23 04:32 POC Glucose 157 mg/dL (70-110) H 07/06/23 10:50 Estimat Average Glucose 108 06/30/23 10:14 Hemoglobin A1c 5.4 % (4.0-6.0) 06/30/23 10:14 Calculated Osmolality 308 mOsm/kg (285-295) H 07/06/23 04:32 Calcium 9.4 mg/dL (8.5-10.5) 07/06/23 04:32 Phosphorus 3.3 mg/dL (2.5-4.5) 07/04/23 02:46 Magnesium 1.8 mg/dL (1.7-2.3) 07/04/23 02:46 Total Bilirubin 0.3 mg/dL (0.15-1.2) 07/04/23 02:46 AST 23 U/L (0-40) 07/04/23 02:46 ALT 25 U/L (0-41) 07/04/23 02:46 Alkaline Phosphatase 78 U/L (40-130) 07/04/23 02:46 Troponin T Baseline 46 ng/L (0-15) H 06/30/23 14:00 Troponin T 120 Minute 42.03 ng/L (0-15) H 06/30/23 16:15 Delta Troponin T -3.97 ABS# (0-10) L 06/30/23 16:15 Troponin T Hi Sens 6Hr 38.14 ng/L (0-15) H 06/30/23 19:45 Troponin T Hi Sens 6Hr Delta -7.86 ng/L (0-12) L 06/30/23 19:45 C-Reactive Protein 3.0 mg/L (0.0-4.9) 07/04/23 02:46 NT-Pro-B Natriuret Pep 9428 pg/mL (0-450) H 07/04/23 02:46 Total Protein 6.3 g/dL (6.6-8.7) L 07/04/23 02:46 Albumin 3.2 g/dL (3.5-5.2) L 07/04/23 02:46 Globulin 3.1 g/dL (1.3-4.6) 07/04/23 02:46 Triglycerides 41 mg/dL (0-150) 06/30/23 10:14 Cholesterol 112 mg/dL (0-200) 06/30/23 10:14 LDL Cholesterol, Calc 49 mg/dL (50-129) L 06/30/23 10:14 HDL Cholesterol 55 mg/dL (60-100) L 06/30/23 10:14 LDL/HDL Ratio 0.89 RATIO (0.00-3.22) 06/30/23 10:14 Cholesterol/HDL Ratio 2.04 mg/dL (1.0-5.00) 06/30/23 10:14 Procalcitonin 0.10 ng/mL (0-0.5) 06/30/23 10:14 TSH 2.11 uIU/mL (0.27-4.20) 06/30/23 10:14 Vancomycin Trough 16.2 ug/mL (10-15) H 07/05/23 03:18 Adenovirus (PCR) Not detected (NOT DETECT) 06/30/23 16:15 C. pneumoniae DNA (PCR) Not detected (NOT DETECT) 06/30/23 16:15 Coronavirus 229E (PCR) Not detected (NOT DETECT) 06/30/23 16:15 Human Metapneumovir PCR Not detected (NOT DETECT) 06/30/23 16:15 Influenza A (H1) PCR Not detected (NOT DETECT) 06/30/23 16:15 Influ A (H1/09) PCR Not detected (NOT DETECT) 06/30/23 16:15 Influenza A (H3) PCR Not detected (NOT DETECT) 06/30/23 16:15 Influenza Type A (PCR) Not detected (NOT DETECT) 06/30/23 16:15 Influenza Type B (PCR) Not detected (NOT DETECT) 06/30/23 16:15 M. pneumoniae (PCR) Not detected (NOT DETECT) 06/30/23 16:15 Parainfluenza 1 (PCR) Not detected (NOT DETECT) 06/30/23 16:15 Parainfluenza 2 (PCR) Not detected (NOT DETECT) 06/30/23 16:15 Parainfluenza 3 (PCR) Not detected (NOT DETECT) 06/30/23 16:15 Parainfluenza 4 (PCR) Not detected (NOT DETECT) 06/30/23 16:15 RSV Type A (PCR) Not detected (NOT DETECT) 06/30/23 16:15 RSV Type B (PCR) Not detected (NOT DETECT) 06/30/23 16:15 Entero/Rhino (PCR) Not detected (NOT DETECT) 06/30/23 16:15 SARS-CoV-2 (PCR) Not detected (NOT DETECT) 06/30/23 16:15 Vitals Last Vital Signs Temp 98.2 F 07/06/23 11:58 Pulse 81 07/06/23 11:58 Resp 16 07/06/23 11:58 BP 125/76 07/06/23 11:58 Pulse Ox 97 07/06/23 11:58 O2 Del Method Nasal Cannula 07/06/23 11:58 O2 Flow Rate 4 07/06/23 11:03 Discharge Plan Discharge Patient Disposition: Home Condition: Stable Prescriptions: New prednisone 20 mg Tablet 40 mg PO DAILY 5 Days Qty: 10 0RF ceftriaxone 1 gram recon soln 1 g IV DAILY 10 Days Continued (DME) Easy Touch Safety Lancets 32 gauge misc See Rx Instructions .Route Qty: 100 2RF Rx Instructions: use 3 times day as needed (DME) pen needle, diabetic [BD Ultra-Fine Domi Pen Needle] 32 gauge x /32 needle See Rx Instructions .ROUTE .MEDSUPPLY Qty: 100 5RF Rx Instructions: 3 times day as needed (DME) Easy Touch Ambrocio Link Test Strip Strip See Rx Instructions .Route Qty: 50 5RF Rx Instructions: As directed Adult Low Dose Aspirin 81 mg tablet,delayed release (DR/EC) 81 mg PO QAM Qty: 30 5RF levocetirizine 5 mg tablet 5 mg PO DAILY Qty: 90 0RF sucralfate [Carafate] 1 gram tablet 1 g PO BID Qty: 60 2RF omeprazole 40 mg capsule,delayed release(DR/EC) 40 mg PO QAM Qty: 30 2RF metoprolol succinate 25 mg tablet extended release 24 hr 25 mg PO QAM Qty: 90 0RF Rx Instructions: note dose decrease if heart less 60 use 1/2 tablet Breztri Aerosphere 160-9-4.8 mcg/actuation HFA aerosol inhaler 2 inh inhalation BID Qty: 10.7 2RF ipratropium-albuterol 0.5 mg-3 mg(2.5 mg base)/3 mL solution for nebulization 3 ml inhalation Q4H PRN (Reason: shortness of breath or wheezing) Qty: 300 2RF rosuvastatin 40 mg tablet 40 mg PO DAILY 30 Days Qty: 30 2RF nortriptyline 50 mg capsule 50 mg PO BEDTIME Qty: 30 2RF Daliresp 500 mcg tablet 500 mcg PO QAM Qty: 30 2RF montelukast 10 mg tablet 10 mg PO QAM Qty: 90 0RF albuterol sulfate [ProAir HFA] 90 mcg/actuation HFA aerosol inhaler 2 puff INHALATION Q4H PRN (Reason: shortness of breath or wheezing) Qty: 1 2RF fluticasone propionate 50 mcg/actuation spray,suspension 2 spray INTRANASAL DAILY Qty: 9.9 2RF Eliquis 5 mg tablet 5 mg PO BID Qty: 60 2RF semaglutide 0.25 mg or 0.5 mg (2 mg/3 mL) pen injector 0.25 mg SUBCUT Q7D Qty: 3 2RF Rx Instructions: on wednesday Flomax 0.4 mg capsule 0.4 mg PO BEDTIME Qty: 30 2RF ascorbic acid (vitamin C) [Vitamin C] 500 mg Tablet 500 mg PO DAILY PRN (Reason: unknown) cinnamon bark [Cinnamon] 500 mg Capsule 500 mg PO DAILY Probiotic Blend 2 billion cell-50 mg Capsule 1 cap PO BID Rx Instructions: give with meal/snack omega-3 fatty acids 1,000 mg Capsule 1,000 mg PO BID prednisone 5 mg tablet 5 mg PO DAILY Qty: 30 3RF Rx Instructions: start after prednisone burst has finished in 5 days Changed furosemide 40 mg tablet 40 mg PO QAM Qty: 45 2RF Held Fasenra Pen 30 mg/mL auto-injector 30 mg SUBCUT .8 weeks Qty: 1 6RF Hold Instructions: Resume on 07/19/23. Rx Instructions: maintenance dose Discharge Orders: Discharge Order (Routine); Ordered 07/06/23 Ordered By: Sundeep Resendez Other Ambulatory Orders: Miscellaneous Procedure (Order) Location: None Selected Ordered By: Sundeep Resendez Referrals: [facility] [Other] - 07/07/23 9:00 am Jordy Singer FNP-C [Primary Care Provider] - 07/21/23 1:40 pm Discharge Diet: Cardiac Discharge Activity: Resume usual activity Patient Instructions: Prednisone (By mouth), COPD (Chronic Obstructive Pulmonary Disease) (GEN), How to Care for Your Midline Catheter (GEN), COPD Stoplight, Opioid Safety Activity Restrictions/Additional Instructions: - see primary care in one week -if any shortness of breath come back to ER Discharge Attestations Time Spent in Discharge Care*: greater than 30 min Status at Discharge: Cognitive status at discharge: cognitively intact, Behavioral status at discharge: cooperative, Quality Metrics Clinical Quality Measures [ No reported AMI, CVA or VTE this stay] Coding Level of Care Code 96381 Total time (in minutes) for Discharge: 45 Diagnoses Acute hypoxic respiratory failure J96.01 Community acquired pneumonia J18.9 Laterality: left Lung location: lower lobe of lung CHF (congestive heart failure) I50.9 CHF exacerbation I50.9 Gastroesophageal reflux disease without esophagitis K21.9 Esophagitis presence: without esophagitis Hilar lymphadenopathy R59.0 Chronic obstructive pulmonary disease, unspecified COPD type J44.9 COPD type: unspecified COPD COPD exacerbation J44.1 Streptococcal bacteremia R78.81; B95.5
--- NOTE | 2023-07-06 16:41 | PC.NURSE ---
Patient is A&Ox3. Respirations even and non-labored on 2 liters nasal cannula which is his base line. Reviewed patient's discharge with patient including how to take his Prednisone and follow up IV antibiotics daily. Patient must return to the hospital everyday until completion of the antibiotic's. Patient verbalized understanding. Patient wheel chaired to private car.
== END 2023-07-06 16:40 | disposition home or self-care (01) | DRG 291 ==
LOC: ER 12:34 → MEDSURG 14:24
PROVIDERS: Internal Medicine; Admitting Provider Family Medicine; Emergency Provider Emergency Medicine; PCP Nurse Practitioner; Visit Provider Family Medicine
DX: I11.0 Hypertensive heart disease with heart failure (principal); I50.33 Acute on chronic diastolic (congestive) heart failure; J18.9 Pneumonia, unspecified organism; J96.01 Acute respiratory failure with hypoxia; J44.0 Chronic obstructive pulmonary disease with (acute) lower respiratory infection; J44.1 Chronic obstructive pulmonary disease with (acute) exacerbation; R78.81 Bacteremia; K21.9 Gastro-esophageal reflux disease without esophagitis; R59.0 Localized enlarged lymph nodes; B95.4 Other streptococcus as the cause of diseases classified elsewhere; Z79.01 Long term (current) use of anticoagulants; Z86.711 Personal history of pulmonary embolism; E11.9 Type 2 diabetes mellitus without complications; Z79.85 Long-term (current) use of injectable non-insulin antidiabetic drugs; E78.5 Hyperlipidemia, unspecified; Z95.0 Presence of cardiac pacemaker
CPT/HCPCS: 36415; 36416; 36569; 36573; 36600; 71045; 80048; 80053; 80061; 80202; 82803; 82962; 83036; 83735; 83880; 84100; 84145; 84443; 84484; 85025; 85610; 86140; 87040; 87070; 87077; 87150; 87186; 87205; 87486; 87581; 87633; 93005; 94640; 94664; 96365; 96367; 96372; 96375; 99285; C1751; C9113; J0456; J0696; J1100; J1815; J1940; J3370; J7050; J7512; J7613; J7626

== ENCOUNTER 2023-07-15 12:09 | Inpatient (IN) | payer MEDICARE, MEDICAID, SELFPAY ==
[2023-07-15] VITALS (12 sets, daily range): BP systolic 107–132; BP diastolic 67–72; PULSE 74–89; RESP 16–20; TEMP 36.7–36.9; O2SAT 96–100; BMI 23.7
--- NOTE | 2023-07-15 12:14 | XRR_ITS ---
PROCEDURE INFORMATION: Exam: XR Chest Exam date and time: 07/15/2023 12:36 PM Age: 83 years old Clinical indication: Shortness of breath TECHNIQUE: Imaging protocol: Radiologic exam of the chest. Views: 1 view. COMPARISON: CR (CHEST, ) 06/30/2023 10:09 AM FINDINGS: Tubes, catheters and devices: A cardiac pacing device is again seen projecting over the left chest. Lungs: There are increased lung markings and haziness of the lungs in association with small bilateral pleural effusions, which in the setting of cardiomegaly is consistent with pulmonary edema. Pneumonia should be excluded clinically. No pneumothorax. Pleural spaces: See Lungs finding. Heart/Mediastinum: Stable cardiomediastinal silhouette. Bones/joints: Unremarkable. XR/XR chest 1V [id number] IMPRESSION: Imaging findings of pulmonary edema with small bilateral pleural effusions. Pneumonia should be excluded clinically.
--- NOTE | 2023-07-15 12:14 | ECG_ITS ---
[facility] Test Date: 2023-07-15 Pat Name: Andrew Sainz Department: Room: Gender: Male Churn Tender: : 1940 Requested By: Ada Urias Order Number: [id number] Babatunde MD: Ananda Gardner M.D. Measurements Intervals [place] Rate: 74 P: 62 MT: 202 QRS: -66 QRSD: 216 T: 114 QT: 462 QTc: 514 Interpretive Statements ELECTRONIC VENTRICULAR PACEMAKER ABNORMAL RHYTHM ECG Compared to ECG 06/30/2023 20:20:06 No significant changes Electronically Signed On 07-15-2023 15:09:50 CDT by Ananda Gardner M.D. [email or web address]
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
--- NOTE | 2023-07-15 13:15 | PC.PHAR ---
[facility] SETS UP MEDICATIONS
[2023-07-15 13:28] LABS: Basophils % 0.1 %; Hematocrit 35.3 % (37-53); Lymphocytes # 0.8 10^3/uL (0.8-4.8); Lymphocytes % 8.4 %; Mean Corpuscular Volume 86.5 fl (82-101); Monocytes # 0.9 10^3/uL (0.2-0.9); Monocytes % 8.5 %; Neutrophils # 8.31 10^3/uL (1.8-7.7); Neutrophils % 82.7 %; Nucleated Red Blood Cells % 0 %; Platelet Count 224 10^3/cmm (157-399); Red Blood Count 4.08 10^6/uL (3.85-5.65); Red Cell Distribution Width 16.7 % (12.1-15.1); White Blood Count 10.04 10^3/uL (3.29-11.43)
[2023-07-15 13:45] LABS: Lactic Sepsis W/Reflex 1.1 mmol/L (0.5-2.2); Troponin(5th) Baseline 57 ng/L (0-15)
[2023-07-15] MEDS: FUROsemide 10 mg/mL SDV 10mL 80 MG IVP (13:46)
--- NOTE | 2023-07-15 14:33 | ECG_ITS ---
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 Measurements Intervals Max Rate: 76 P: -76 WV: 172 QRS: -66 QRSD: 174 T: 115 QT: 453 QTc: 511 Interpretive Statements ELECTRONIC VENTRICULAR PACEMAKER ABNORMAL RHYTHM ECG Compared to ECG 07/15/2023 12:24:25 No significant changes Electronically Signed On 07-17-2023 19:44:39 CDT by Alli Quinn M.D. [email or web address]
[2023-07-15 15:03] LABS: NT Pro B Type Natriuretic Pept 7842 pg/mL (0-450); Procalcitonin 0.12 ng/mL (0-0.5)
[2023-07-15 15:07] LABS: Adenovirus Not Detected (NOT DETECT); Chlamydia Pneumoniae Not Detected (NOT DETECT); Coronavirus 229E,HKU1,NL63,OC4 Not Detected (NOT DETECT); Human Metapneumovirus Not Detected (NOT DETECT); Human Rhinovirus/Enterovirus Not Detected (NOT DETECT); Influenza A Not Detected (NOT DETECT); Influenza A H1 Not Detected (NOT DETECT); Influenza A H1-2009 Not Detected (NOT DETECT); Influenza A H3 Not Detected (NOT DETECT); Influenza B Not Detected (NOT DETECT); Mycoplasma Pneumoniae Not Detected (NOT DETECT); Parainfluenza Virus Type 1 Not Detected (NOT DETECT); Parainfluenza Virus Type 2 Not Detected (NOT DETECT); Parainfluenza Virus Type 3 Not Detected (NOT DETECT); Parainfluenza Virus Type 4 Not Detected (NOT DETECT); Respiratory Syncytial Virus A Not Detected (NOT DETECT); Respiratory Syncytial Virus B Not Detected (NOT DETECT); SARS-COV-2 Not Detected (NOT DETECT)
[2023-07-15 15:14] LABS: Alanine Aminotransferase 40 U/L (0-41); Albumin Level 3.1 g/dL (3.5-5.2); Alkaline Phosphatase 92 U/L (40-130); Anion Gap 10.2 (5-19); Aspartate Amino Transferase 25 U/L (0-40); Blood Urea Nitrogen 17 mg/dL (8-23); C Reactive Protein 40.3 mg/L (0.0-4.9); Carbon Dioxide 32 mmol/L (22-29); Chloride 102 mmol/L (98-107); Creatinine Clr Calc Pharmacy 68.0465; Globulin 2.8 g/dL (1.3-4.6); Glucose 121 mg/dL (65-115); Osmolality Calculated 293 mOsm/kg (285-295); Potassium 4.2 mmol/L (3.5-5.1); Sodium 140 mmol/L (136-145); Total Bilirubin 0.4 mg/dL (0.15-1.2); Total Protein 5.9 g/dL (6.6-8.7)
[2023-07-15] MEDS: ipratropium-albuterol 3 mL Neb INHALATION ×2 (15:34→21:16)
[2023-07-15] MEDS: albuterol 2.5 mg/3 mL Neb INHALATION (15:34)
[2023-07-15] MEDS: methylPREDNISolone sod succ 125 mg/2 mL INJ IVP (15:36)
[2023-07-15 16:03] LABS: Troponin 5 2HR 66.29 ng/L (0-15); Troponin 5 2HR Delta 9.29 ABS# (0-10)
--- NOTE | 2023-07-15 17:30 | PC.NURSE ---
pt has urine output of 1000 cc.
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
[2023-07-15 20:41] LABS: Glucose Point of Care 174 mg/dL (70-110)
[2023-07-15] MEDS: nortriptyline 25 mg Capsule 50 MG PO (21:41)
[2023-07-15] MEDS: tamsulosin 0.4 mg Capsule 0.400000000000000022 MG PO (21:41)
[2023-07-15] MEDS: insulin lispro 100 unit/1 mL SUBCUT (21:42)
[2023-07-16] VITALS (17 sets, daily range): BP systolic 103–130; BP diastolic 54–71; PULSE 69–81; RESP 14–18; TEMP 36.4–36.9; O2SAT 93–100
[2023-07-16] MEDS: ipratropium-albuterol 3 mL Neb INHALATION ×4 (02:54→20:07)
[2023-07-16] MEDS: FUROsemide 10 mg/mL SDV 4mL 60 MG IVP ×2 (04:49→16:35)
[2023-07-16] MEDS: pantoprazole DR 40 mg Tablet PO (04:53)
[2023-07-16] MEDS: montelukast sodium 10 mg Tablet PO (04:53)
[2023-07-16] MEDS: roflumilast 500 mcg Tablet PO (04:53)
[2023-07-16] MEDS: metoprolol succinate ER (24 HR) 25 mg Tablet PO (04:53)
[2023-07-16] MEDS: aspirin 81 mg EC Tablet PO (04:54)
[2023-07-16 04:58] LABS: Hematocrit 35.3 % (37-53); Lymphocytes # 0.4 10^3/uL (0.8-4.8); Lymphocytes % 8.5 %; Mean Corpuscular Hemoglobin 25.5 pg (27-33); Mean Corpuscular Volume 84.9 fl (82-101); Mean Platelet Volume 9.2 fL (7.4-10.4); Monocytes # 0.2 10^3/uL (0.2-0.9); Monocytes % 4.5 %; Neutrophils # 4.09 10^3/uL (1.8-7.7); Neutrophils % 86.8 %; Nucleated Red Blood Cells % 0 %; Platelet Count 214 10^3/cmm (157-399); Red Blood Count 4.16 10^6/uL (3.85-5.65); Red Cell Distribution Width 16.5 % (12.1-15.1); White Blood Count 4.71 10^3/uL (3.29-11.43)
[2023-07-16 05:20] LABS: Anion Gap 11.1 (5-19); Blood Urea Nitrogen 25 mg/dL (8-23); Calcium 8.5 mg/dL (8.5-10.5); Carbon Dioxide 32 mmol/L (22-29); Chloride 98 mmol/L (98-107); Creatinine Clr Calc Pharmacy 61.2419; Glucose 170 mg/dL (65-115); Magnesium 2.2 mg/dL (1.7-2.3); Osmolality Calculated 292 mOsm/kg (285-295); Potassium 4.1 mmol/L (3.5-5.1); Sodium 137 mmol/L (136-145)
[2023-07-16 06:35] LABS: Glucose Point of Care 177 mg/dL (70-110)
[2023-07-16] MEDS: budesonide 0.5 mg/2 mL Neb INHALATION ×2 (07:12→20:07)
[2023-07-16] MEDS: insulin lispro 100 unit/1 mL SUBCUT ×4 (08:29→21:13)
[2023-07-16] MEDS: cefTRIAXone 1,000 MG in sodium chloride 0.9% (plus) 50 ML 100 MG IV (08:30)
[2023-07-16] MEDS: apixaban 5 mg Tablet PO ×2 (08:30→16:36)
[2023-07-16] MEDS: sucralfate 1 gm Tablet PO ×2 (08:30→16:35)
[2023-07-16] MEDS: atorvastatin 40 mg Tablet PO (08:30)
--- NOTE | 2023-07-16 09:08 | PC.CHAP ---
Pastoral Care Encounter/Spiritual Assessment Type of Contact [] Declined fisher diving visit [] Patient/Family/Request visit [] Outpatient visit [] Follow-up visit [] Physician referral [] Code/Alert [] Routine visit [] Staff referral [] Actively dying [] Patient sleeping [] Family support [] [] Out of room [] Palliative care [] [x] Receiving care in room [] Pre-surgical visit [] Trauma [] Long length of stay [] ICU visit [] Other: Relational/Emotional Strength [] Patient feels connected with others/family/visitors/staff [] Distress [] Loneliness/isolation [] Abandonment Spirituality of Patient [] Person of Lynda [] Attends Scientologist of their Lynda [] Believes in Prayer [] Reads Bible or Church materials [] There are Spiritual issues to be addressed Sequencing Machine Operator Interventions [] Prayer [] Active listening [] Non-anxious presence [] Spiritual/emotional support [] Crisis/trauma care [] Spiritual counseling [] Bereavement support [] Provided bereavement packet [] Provided Bible/devotional materials [] Provided toy/stuffed animal, coloring book to patient or family member [] Provided Communion [] Anointing/[place] [] Salvation [] Completed spiritual assessment [] Other: Impact on Illness or Injury [] Angry [] Fearful [] Anxious [] Often cries [] Exhaustion [] Unable to work [] Unable to attend jain [] Unable to walk/stand [] Unable to read [] Unable to drive [] Unable to eat/drink [] Unable to sleep [] Unable to be with family [] Patient intubated [] Other: Summary Time spent with patient
--- NOTE | 2023-07-16 09:31 | USCV_ITS ---
Andrew Sainz Age: 83 Gender: M : 1940 Exam Date: 07/16/2023 11:26 Ordering Phys: Hernando Ko MD Technologist: CT Exam Location: [facility] [place] Indication: bacterial inf BP: 140 / 81 HR: 76 Rhythm: Sinus Technical Quality: Adequate MEASUREMENTS (Male / Female) Normal Values 2D ECHO LVOT Diameter 2.2 cm LV Ejection Fraction MOD 2C 35.6 % LV Ejection Fraction 2C AL 36.4 % LA Diameter 4.8 cm RA Systolic Volume 4C AL 81.8 ml RA Systolic Volume 4C MOD 77.8 ml LA Sys Volume AL 106.7 cm cubed LA Sys Volume Index AL 53.4 cm cubed/m squared Aorta at Sinotubular Diameter 2.9 cm IVC Diameter 2.0 cm M-MODE LA Ao Ratio MM 2.1 AV Cusp Separation MM 2.3 cm DOPPLER AV Peak Velocity 113.0 cm/s LVOT Peak Velocity 98.0 cm/s AV Area Cont Eq vti 4.5 cm squared AV Area Cont Eq pk 3.3 cm squared MV Peak Velocity 112.0 cm/s MV Area PHT 4.7 cm squared Mitral E to A Ratio 1.9 TR Peak Velocity 130.0 cm/s TR Peak Gradient 6.8 mmHg TV Peak E Velocity 101.0 cm/s Right Atrial Pressure 3.0 mmHg Pulmonary Artery Systolic Pressu 9.8 mmHg PV Peak Velocity 122.0 cm/s FINDINGS Left Ventricle Diffuse hypokinesia left ventricle with an ejection fraction of 36%. Mildly dilated LV cavity.Grade I/IV diastolic dysfunction (abnormal relaxation filling pattern), normal to mildly elevated filling pressures. Right Ventricle Catheter/pacemaker wire in the right ventricular cavity. Right Atrium Catheter/pacemaker wire in the right atrial appendage. Left Atrium Mildly increased left atrial size. Mitral Valve Mild to moderate mitral valve regurgitation. Aortic Valve No gross abnormalities noted Tricuspid Valve Mild tricuspid valve regurgitation. Estimated pulmonary artery peak systolic pressure probably within normal Pulmonic Valve No gross abnormalities noted Pericardium Normal pericardium without effusion. Aorta Normal ascending aorta dimension. IVC Normal size CONCLUSIONS Diffuse hypokinesia left ventricle with an ejection fraction of 36%. Mildly dilated LV cavity.Grade I/IV diastolic dysfunction (abnormal relaxation filling pattern), normal to mildly elevated filling pressures. Mildly increased left atrial size. Pacemaker wire was noted in the right atrium and right ventricle There is no pericardial effusion. There are no intracardiac masses or vegetations. Compared to the study from 04/10/2023, there may not be significant change Dr Alli Quinn MD [facility] (Electronically Signed) Final Date: 16 July 2023 19:08 S
--- NOTE | 2023-07-16 10:03 | PC.SOCIAL ---
IMM Update pg 2 of IMM Updated and reviewed w/ patient copy provided and copy dated, initialed and placed in chart.
[2023-07-16 11:25] LABS: Glucose Point of Care 201 mg/dL (70-110)
[2023-07-16 16:59] LABS: Glucose Point of Care 323 mg/dL (70-110)
[2023-07-16] MEDS: nortriptyline 25 mg Capsule 50 MG PO (20:02)
[2023-07-16] MEDS: tamsulosin 0.4 mg Capsule 0.400000000000000022 MG PO (20:03)
[2023-07-16 20:31] LABS: Glucose Point of Care 158 mg/dL (70-110)
--- NOTE | 2023-07-16 22:22 | P.PN_ITS ---
Subjective 2 Subjective: States he is doing all right today. Gets dyspneic with exertion. Vitals/I&O/Wt Last Vital Signs Temp 97.9 F 07/16/23 19:57 Pulse 78 07/16/23 21:43 Resp 18 07/16/23 20:09 BP 121/54 07/16/23 19:57 Pulse Ox 98 07/16/23 20:00 O2 Del Method Nasal Cannula 07/16/23 20:00 O2 Flow Rate 3 07/16/23 20:00 07/16/23 07/16/23 07/16/23 06:59 14:59 22:59 Intake Total 890 / 890 480 / 1370 Output Total 400 / 400 Balance -400 / -160 890 / 890 480 / 1370 Weight last 48 hrs Weight 79.379 kg Weight 77.111 kg Weight 77.111 kg Physical Exam 2 Const: COMMON NORMALS: patient oriented x3 and alert GENERAL APPEARANCE: c ooperative ORIENTATION/CONSCIOUSNESS: Yes awake HENMT: COMMON NORMALS: oropharynx normal Neck/C-Spine: COMMON NORMALS: no JVD Chest: OTHER: Pacemaker Resp: COMMON NORMALS: normal respiratory effort and clear to auscultation bilaterally AUSCULTATION: clear to auscultation bilaterally and diminished lung sounds Cardio: COMMON NORMALS: no JVD, regular rhythm, S1 normal heart sound present, S2 normal heart sound present and No murmurs present (Cardio) RHYTHM: regular rhythm HEART SOUNDS: S1 normal heart sound present and S2 normal heart sound present GI: COMMON NORMALS: Normal to inspection, nondistended, normoactive bowel sounds present, Soft to palpation and non-tender PALPATION: Yes Soft to palpation Extremity: COMMON NORMALS: no joint enlargement GENERAL: Yes edema (4+ LE edema BL to his thighs) Neuro: COMMON NORMALS: patient oriented x3 and moves all extremities S ENSORIUM/ORIENTATION: Yes alert Skin: COMMON NORMALS: no rashes or lesions noted GENERAL SKIN EXAM: no rashes or lesions noted Data 07/16/23 04:42 07/16/23 04:42 Micro: Microbiology 07/15/23 13:09 Blood Culture - Preliminary Blood NEGATIVE TO DATE 07/15/23 13:05 Blood Culture - Preliminary Blood NEGATIVE TO DATE A&P Assessment and plan (1) CHF exacerbation: Reviewed vitals, intake and output, CBC, BMP, magnesium. Reviewed echocardiogram. EF 30%. Grade 1 diastolic dysfunction discussed with him, discussed with occupational therapy aides teacher. Continues on Lasix 60 mg twice daily IV, although does not appear to be negative balance. Intake charted is 1370 mL. Will add fluid restriction 1000 mL. Continue IV Lasix, monitor due to risk of electrolyte dysfunction, renal dysfunction. Recheck chemistry. Continue oxygen supplementation, monitor oxygenation, wean down as tolerating. He does get dyspneic with exertion. Still severe edema lower extremities. Discussed with case managers. Acute exacerbation of systolic CHF. Worsened dyspnea on exertion, acute on chronic respiratory failure with saturations dropped down into the 60s in office, 4+ lower extremity edema. Congestive chest x-ray changes. Known EF 30%. Had a brief episode of chest pain while he was riding in the car. Will obtain troponin EKG series. Does not have any ongoing chest pain currently. She does have intermittent cough, could not tell if it was related to cough. He is anticoagulated with Eliquis. Reviewed vitals, CBC, CMP, respiratory viral panel, chest x-ray, EKG, ER provider note. Discussed with ER provider. Continue IV diuretics, IV Lasix 60 mg twice daily, monitor electrolytes, at risk of deficiency, arrhythmia, monitor renal function. Follow-up chemistry, magnesium. Monitor CHERIE, weights. Cardiac diet. (2) Streptococcal bacteremia: Reviewed vitals, CBC, reviewed echocardiogram, discussed with occupational therapy aides teacher. Appreciate consultation with strep mitis oralis bacteremia, presence of pacemaker, discussed with patient possibility of seeding of pacemaker wire with streptococcal bacteremia, additional assessment by JES. Echocardiogram is not showing a vegetation. He is agreeable. Appreciate cardiology consultation for assessment and arrangements. Completing IV infusions via left arm PICC line with ceftriaxone with stop date on Wednesday. Continue while inpatient. (3) COPD (chronic obstructive pulmonary disease): Does not appear to be in exacerbation. Continue breathing treatments, inhaled budesonide. Montelukast. Roflumilast. Qualifiers: COPD type: unspecified COPD Qualified Code(s): J44.9 - Chronic obstructive pulmonary disease, unspecified Plan Diabetes: Reviewed Accu-Cheks. Doing okay. Continue sliding scale, CC diet. History of PE: Continue Eliquis PPM GERD: Continue PPI, sucralfate HLD: Continue statin BPH: Continue Flomax Goals of care: Would want CPR in case of cardiopulmonary arrest. Would want life support. Would not want protracted life support in case of being brain . Names friend and caregiver Emily Leiva as surrogate decision maker in case could not make decisions for himself. Will ask case management for consultation to help them set up DPOA paperwork. Attestations 2 Medical Necessity Statement*: Continue admission for assessment management of CHF exacerbation and gentleman with EF 30%, diastolic dysfunction, additional assessment with streptococcal bacteremia and presence of pacemaker leads. and High MDM includes amount and/or complexity of data reviewed/ordered [ resulted lab(s)/test(s), ordered lab(s)/test(s) and other healthcare professional discussion] and described risk of complication, morbidity or mortality of management as documented Diagnoses CHF exacerbation I50.9 Streptococcal bacteremia R78.81; B95.5 Chronic obstructive pulmonary disease, unspecified COPD type J44.9 COPD type: unspecified COPD
[2023-07-17] VITALS (14 sets, daily range): BP systolic 115–151; BP diastolic 59–90; PULSE 69–87; RESP 15–19; TEMP 36.4–36.6; O2SAT 93–100
[2023-07-17] MEDS: ipratropium-albuterol 3 mL Neb INHALATION ×4 (02:37→20:41)
[2023-07-17] MEDS: aspirin 81 mg EC Tablet PO (05:05)
[2023-07-17] MEDS: montelukast sodium 10 mg Tablet PO (05:05)
[2023-07-17] MEDS: metoprolol succinate ER (24 HR) 25 mg Tablet PO (05:05)
[2023-07-17] MEDS: pantoprazole DR 40 mg Tablet PO (05:05)
[2023-07-17] MEDS: roflumilast 500 mcg Tablet PO (05:05)
[2023-07-17] MEDS: FUROsemide 10 mg/mL SDV 4mL 60 MG IVP ×2 (05:07→17:25)
[2023-07-17 05:59] LABS: Basophils % 0.1 %; Hematocrit 35.2 % (37-53); Lymphocytes # 1.4 10^3/uL (0.8-4.8); Lymphocytes % 13.6 %; Mean Corpuscular HGB Conc 29.5 g/dL (30-55); Mean Corpuscular Hemoglobin 25.4 pg (27-33); Mean Corpuscular Volume 86.1 fl (82-101); Mean Platelet Volume 8.9 fL (7.4-10.4); Monocytes # 0.9 10^3/uL (0.2-0.9); Monocytes % 8.6 %; Neutrophils # 7.75 10^3/uL (1.8-7.7); Neutrophils % 77.4 %; Nucleated Red Blood Cells % 0 %; Platelet Count 217 10^3/cmm (157-399); Red Blood Count 4.09 10^6/uL (3.85-5.65); Red Cell Distribution Width 16.6 % (12.1-15.1); White Blood Count 10.01 10^3/uL (3.29-11.43)
[2023-07-17 06:14] LABS: Glucose Point of Care 148 mg/dL (70-110)
[2023-07-17 06:19] LABS: Anion Gap 9.8 (5-19); Blood Urea Nitrogen 35 mg/dL (8-23); Calcium 8.1 mg/dL (8.5-10.5); Carbon Dioxide 34 mmol/L (22-29); Chloride 101 mmol/L (98-107); Creatinine Clr Calc Pharmacy 56.6177; Glucose 139 mg/dL (65-115); Osmolality Calculated 302 mOsm/kg (285-295); Potassium 3.8 mmol/L (3.5-5.1); Sodium 141 mmol/L (136-145)
[2023-07-17] MEDS: budesonide 0.5 mg/2 mL Neb INHALATION ×2 (07:23→20:41)
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
[2023-07-17] MEDS: atorvastatin 40 mg Tablet PO (08:20)
[2023-07-17] MEDS: insulin lispro 100 unit/1 mL SUBCUT ×2 (08:21→12:43)
[2023-07-17] MEDS: apixaban 5 mg Tablet PO ×2 (08:21→17:25)
[2023-07-17] MEDS: sucralfate 1 gm Tablet PO ×2 (08:21→17:25)
[2023-07-17] MEDS: cefTRIAXone 1,000 MG in sodium chloride 0.9% (plus) 50 ML 100 MG IV (08:22)
[2023-07-17 12:14] LABS: Glucose Point of Care 151 mg/dL (70-110)
[2023-07-17 17:03] LABS: Glucose Point of Care 112 mg/dL (70-110)
[2023-07-17 21:04] LABS: Glucose Point of Care 127 mg/dL (70-110)
--- NOTE | 2023-07-17 21:58 | P.PN_ITS ---
Subjective 2 Subjective: He gets dyspneic with exertion. Edema appears to be improving recently extremities. Denies chest pain or pressure. Doing okay at rest. Vitals/I&O/Wt Last Vital Signs Temp 97.9 F 07/17/23 16:00 Pulse 79 07/17/23 20:51 Resp 18 07/17/23 20:41 BP 115/65 07/17/23 16:00 Pulse Ox 99 07/17/23 20:41 O2 Del Method Nasal Cannula 07/17/23 20:41 O2 Flow Rate 3.5 07/17/23 20:41 07/17/23 07/17/23 07/17/23 06:59 14:59 22:59 Intake Total 530 / 530 240 / 770 Balance 530 / 530 240 / 770 Weight last 48 hrs Weight 80.331 kg Weight 79.379 kg Physical Exam 2 Narrative: Accompanied by caregiver) Const: COMMON NORMALS: patient oriented x3 and alert GENERAL APPEARANCE: c ooperative ORIENTATION/CONSCIOUSNESS: Yes awake HENMT: COMMON NORMALS: oropharynx normal Neck/C-Spine: COMMON NORMALS: no JVD Chest: OTHER: Pacemaker. Pocket without any signs of erythema, no swelling or fluctuance. Resp: COMMON NORMALS: normal respiratory effort and clear to auscultation bilaterally AUSCULTATION: clear to auscultation bilaterally and diminished lung sounds Cardio: COMMON NORMALS: no JVD, regular rhythm, S1 normal heart sound present, S2 normal heart sound present and No murmurs present (Cardio) RHYTHM: regular rhythm HEART SOUNDS: S1 normal heart sound present and S2 normal heart sound present GI: COMMON NORMALS: Normal to inspection, nondistended, normoactive bowel sounds present, Soft to palpation and non-tender PALPATION: Yes Soft to palpation Extremity: COMMON NORMALS: no joint enlargement GENERAL: Yes edema (2+ LE edema BL to his thighs) Neuro: COMMON NORMALS: patient oriented x3 and moves all extremities S ENSORIUM/ORIENTATION: Yes alert Skin: COMMON NORMALS: no rashes or lesions noted GENERAL SKIN EXAM: no rashes or lesions noted Data 07/17/23 05:52 07/17/23 05:52 A&P Assessment and plan (1) CHF exacerbation: Appears to have charted no output but he is producing good urine. Edema appears to be decreasing. Weight appears to be listed as 80 kg. Will move him to CSU, continue treatment of CHF. Monitor intake and output closely. Monitor electrolytes with risk of abnormality with IV diuretics. Reviewed sodium, potassium, chloride, BUN, creatinine. Follow-up requested. Discussed with photograph tinter, tentative plan for JES, initially considered for today, but no staff available, will have to be done on Wednesday. Restarted on a diet. Fluid restriction 1000 mL. Acute exacerbation of systolic CHF. Worsened dyspnea on exertion, acute on chronic respiratory failure with saturations dropped down into the 60s in office, 4+ lower extremity edema. Congestive chest x-ray changes. Known EF 30%. Had a brief episode of chest pain while he was riding in the car. Will obtain troponin EKG series. Does not have any ongoing chest pain currently. She does have intermittent cough, could not tell if it was related to cough. He is anticoagulated with Eliquis. (2) Streptococcal bacteremia: Discussed with cardiology, plans for additional assessment by JES, have been discussed with him. Patient will have to be done on Wednesday. Reviewed repeat blood cultures, remaining negative. Continue IV antibiotic. Reviewed vitals, CBC, reviewed echocardiogram, discussed with photograph tinter. Appreciate consultation with strep mitis oralis bacteremia, presence of pacemaker, discussed with patient possibility of seeding of pacemaker wire with streptococcal bacteremia, additional assessment by JES. Echocardiogram is not showing a vegetation. He is agreeable. Appreciate cardiology consultation for assessment and arrangements. Completing IV infusions via left arm PICC line with ceftriaxone with stop date on Wednesday. Continue while inpatient. (3) COPD (chronic obstructive pulmonary disease): In moderate exacerbation. Continue breathing treatments. Add Mucinex. Continue budesonide. Will add a low-dose of prednisone given he has quite a bit of cough secretions, Dyspnea. Monitor for risk of hyperglycemia with prednisone. Does not appear to be in exacerbation. Continue breathing treatments, inhaled budesonide. Montelukast. Roflumilast. Qualifiers: COPD type: unspecified COPD Qualified Code(s): J44.9 - Chronic obstructive pulmonary disease, unspecified Plan Diabetes: Reviewed Accu-Cheks. Doing okay. Continue sliding scale, CC diet. History of PE: Continue Eliquis PPM GERD: Continue PPI, sucralfate HLD: Continue statin BPH: Continue Flomax Goals of care: Would want CPR in case of cardiopulmonary arrest. Would want life support. Would not want protracted life support in case of being brain . Names friend and caregiver Emily Leiva as surrogate decision maker in case could not make decisions for himself. Attestations 2 Medical Necessity Statement*: Continue admission for assessment management of CHF exacerbation and gentleman with EF 30%, diastolic dysfunction, additional assessment with streptococcal bacteremia and presence of pacemaker leads. COPD exacerbation. and High MDM includes amount and/or complexity of data reviewed/ordered [ resulted lab(s)/test(s), ordered lab(s)/test(s) and other healthcare professional discussion] and described risk of complication, morbidity or mortality of management as documented Diagnoses CHF exacerbation I50.9 Streptococcal bacteremia R78.81; B95.5 Chronic obstructive pulmonary disease, unspecified COPD type J44.9 COPD type: unspecified COPD
[2023-07-17] MEDS: nortriptyline 25 mg Capsule 50 MG PO (22:07)
[2023-07-17] MEDS: tamsulosin 0.4 mg Capsule 0.400000000000000022 MG PO (22:08)
[2023-07-17] MEDS: guaiFENesin 600 mg Tablet 1200 MG PO (22:51)
[2023-07-17] MEDS: predniSONE 10 mg Tablet PO (22:51)
[2023-07-18] VITALS (17 sets, daily range): BP systolic 130–156; BP diastolic 64–82; PULSE 67–84; RESP 17–26; TEMP 36.4–37; O2SAT 97–100
[2023-07-18 02:22] LABS: Add Urine Microscopic? NO; Charge for UA Resulting for Rev
[2023-07-18] MEDS: ipratropium-albuterol 3 mL Neb INHALATION ×4 (02:23→20:22)
[2023-07-18 02:25] LABS: Bilirubin Urine Neg (Negative); Blood Urine Neg (Negative); Glucose Urine UA Norm (Normal); Ketones Urine Negative (Negative); Leukocyte Esterase Urine Negative (Negative); Nitrate Urine Negative (Negative); Protein Urine Neg (Negative); Urine Appearance Clear (CLEAR); Urine Color Yellow (Yellow); Urobilinogen Urine Neg (Negative); pH Urine 7 (5-7)
[2023-07-18 03:56] LABS: Basophils % 0.1 %; Hematocrit 34.2 % (37-53); Lymphocytes # 0.8 10^3/uL (0.8-4.8); Lymphocytes % 8.1 %; Mean Corpuscular HGB Conc 29.8 g/dL (30-55); Mean Corpuscular Hemoglobin 25.8 pg (27-33); Mean Corpuscular Volume 86.4 fl (82-101); Mean Platelet Volume 9.6 fL (7.4-10.4); Monocytes # 0.9 10^3/uL (0.2-0.9); Monocytes % 9.6 %; Neutrophils # 7.76 10^3/uL (1.8-7.7); Neutrophils % 81.7 %; Nucleated Red Blood Cells % 0 %; Platelet Count 227 10^3/cmm (157-399); Red Blood Count 3.96 10^6/uL (3.85-5.65); Red Cell Distribution Width 16.6 % (12.1-15.1)
[2023-07-18 04:15] LABS: Anion Gap 12.3 (5-19); Blood Urea Nitrogen 34 mg/dL (8-23); Calcium 8.3 mg/dL (8.5-10.5); Carbon Dioxide 35 mmol/L (22-29); Chloride 101 mmol/L (98-107); Creatinine Clr Calc Pharmacy 62.2794; Glucose 159 mg/dL (65-115); Osmolality Calculated 309 mOsm/kg (285-295); Potassium 4.3 mmol/L (3.5-5.1); Sodium 144 mmol/L (136-145)
[2023-07-18] MEDS: aspirin 81 mg EC Tablet PO (04:52)
[2023-07-18] MEDS: FUROsemide 10 mg/mL SDV 4mL 60 MG IVP (04:52)
[2023-07-18] MEDS: metoprolol succinate ER (24 HR) 25 mg Tablet PO (04:52)
[2023-07-18] MEDS: montelukast sodium 10 mg Tablet PO (04:53)
[2023-07-18] MEDS: roflumilast 500 mcg Tablet PO (04:53)
[2023-07-18] MEDS: pantoprazole DR 40 mg Tablet PO (04:53)
[2023-07-18 07:05] LABS: Glucose Point of Care 122 mg/dL (70-110)
[2023-07-18] MEDS: budesonide 0.5 mg/2 mL Neb INHALATION ×2 (07:49→20:22)
[2023-07-18] MEDS: guaiFENesin 600 mg Tablet 1200 MG PO ×2 (08:54→17:44)
[2023-07-18] MEDS: sucralfate 1 gm Tablet PO ×2 (08:55→17:44)
[2023-07-18] MEDS: atorvastatin 40 mg Tablet PO (08:55)
[2023-07-18] MEDS: predniSONE 10 mg Tablet PO (08:56)
[2023-07-18] MEDS: apixaban 5 mg Tablet PO ×2 (08:56→17:44)
[2023-07-18] MEDS: cefTRIAXone 1,000 MG in sodium chloride 0.9% (plus) 50 ML 100 MG IV (08:56)
[2023-07-18 11:38] LABS: Glucose Point of Care 183 mg/dL (70-110)
[2023-07-18] MEDS: insulin lispro 100 unit/1 mL SUBCUT ×2 (13:41→22:17)
[2023-07-18 17:09] LABS: Glucose Point of Care 139 mg/dL (70-110)
[2023-07-18] MEDS: FUROsemide 10 mg/mL SDV 10mL 60 MG IVP (17:44)
--- NOTE | 2023-07-18 19:16 | PM.PN ---
Subjective Subjective: She denies chest pain or pressure, breathing is okay at rest. He is breathing slightly better today, little bit less wheezing. Vitals/I&O/Wt Last Vital Signs Temp 98.2 F 07/18/23 16:00 Pulse 67 07/18/23 16:00 Resp 17 07/18/23 16:00 BP 130/64 07/18/23 16:00 Pulse Ox 100 07/18/23 16:00 O2 Del Method Nasal Cannula 07/18/23 16:00 O2 Flow Rate 3 07/18/23 14:28 07/18/23 07/18/23 07/18/23 06:59 14:59 22:59 Intake Total 480 / 1250 530 / 530 240 / 770 Output Total 300 / 1050 Balance 180 / 200 530 / 530 240 / 770 Weight last 48 hrs Weight 80.331 kg Physical Exam Const: COMMON NORMALS: patient oriented x3 and alert GENERAL APPEARANCE: cooperative ORIENTATION/CONSCIOUSNESS: Yes awake HENMT: COMMON NORMALS: oropharynx normal Neck/C-Spine: COMMON NORMALS: no JVD Chest: OTHER: Pacemaker. Pocket without any signs of erythema, no swelling or fluctuance. Resp: COMMON NORMALS: normal respiratory effort and clear to auscultation bilaterally AUSCULTATION: clear to auscultation bilaterally and diminished lung sounds Cardio: COMMON NORMALS: no JVD, regular rhythm, S1 normal heart sound present, S2 normal heart sound present and No murmurs present (Cardio) RHYTHM: regular rhythm HEART SOUNDS: S1 normal heart sound present and S2 normal heart sound present GI: COMMON NORMALS: Normal to inspection, nondistended, normoactive bowel sounds present, Soft to palpation and non-tender PALPATION: Yes Soft to palpation Extremity: COMMON NORMALS: no joint enlargement GENERAL: Yes edema (2+ LE edema BL to his thighs) Neuro: COMMON NORMALS: patient oriented x3 and moves all extremities SENSORIUM/ORIENTATION: Yes alert Skin: COMMON NORMALS: no rashes or lesions noted GENERAL SKIN EXAM: no rashes or lesions noted Data 07/18/23 02:36 07/18/23 02:36 A&P Assessment and plan (1) CHF exacerbation: Noted in positive balance last night. Discussed with him, add fluid restriction 1000 mL. Discussed with him also will escalate diuretic regimen, add metolazone 30 minutes before morning Lasix dose. Reviewed chemistry, lites with some alkalosis, add acetazolamide. Monitor CHERIE. It appears the UA was obtained overnight, reviewed. Monitor electrolytes with risk of abnormality with IV diuretics. Reviewed sodium, potassium, chloride, BUN, creatinine. Follow-up requested. Acute exacerbation of systolic CHF. Worsened dyspnea on exertion, acute on chronic respiratory failure with saturations dropped down into the 60s in office, 4+ lower extremity edema. Congestive chest x-ray changes. Known EF 30%. Had a brief episode of chest pain while he was riding in the car. Will obtain troponin EKG series. Does not have any ongoing chest pain currently. She does have intermittent cough, could not tell if it was related to cough. He is anticoagulated with Eliquis. (2) Streptococcal bacteremia: Discussed with manager inventory, JES likely tomorrow. Will make n.p.o. after midnight. Reviewed repeat blood cultures, remaining negative. Continue IV antibiotic. Completing original course today. Reviewed vitals, CBC, reviewed echocardiogram, discussed with manager inventory. Appreciate consultation with strep mitis oralis bacteremia, presence of pacemaker, discussed with patient possibility of seeding of pacemaker wire with streptococcal bacteremia, additional assessment by JES. Echocardiogram is not showing a vegetation. He is agreeable. Appreciate cardiology consultation for assessment and arrangements. Completing IV infusions via left arm PICC line with ceftriaxone with stop date on Wednesday. Continue while inpatient. (3) COPD (chronic obstructive pulmonary disease): In moderate exacerbation. Continue breathing treatments. Added Mucinex. Continue budesonide. With him added a low-dose of prednisone given he has quite a bit of cough secretions, Dyspnea. Monitor for risk of hyperglycemia with prednisone. Continue montelukast. Roflumilast. Qualifiers: COPD type: unspecified COPD Qualified Code(s): J44.9 - Chronic obstructive pulmonary disease, unspecified Plan Diabetes: Reviewed Accu-Cheks. Doing okay. Continue sliding scale, CC diet. History of PE: Continue Eliquis PPM GERD: Continue PPI, sucralfate HLD: Continue statin BPH: Continue Flomax Goals of care: Would want CPR in case of cardiopulmonary arrest. Would want life support. Would not want protracted life support in case of being brain . Names friend and caregiver Emily Leiva as surrogate decision maker in case could not make decisions for himself. Attestations Medical Necessity Statement*: Continue admission for assessment management of CHF exacerbation and gentleman with EF 36%, diastolic dysfunction, additional assessment with streptococcal bacteremia and presence of pacemaker leads. COPD exacerbation. and High MDM includes amount and/or complexity of data reviewed/ordered [ resulted lab(s)/test(s), ordered lab(s)/test(s) and other healthcare professional discussion] and described risk of complication, morbidity or mortality of management as documented Diagnoses CHF exacerbation I50.9 Streptococcal bacteremia R78.81; B95.5 Chronic obstructive pulmonary disease, unspecified COPD type J44.9 COPD type: unspecified COPD
[2023-07-18 20:28] LABS: Glucose Point of Care 180 mg/dL (70-110)
[2023-07-18] MEDS: tamsulosin 0.4 mg Capsule 0.400000000000000022 MG PO (21:22)
[2023-07-18] MEDS: nortriptyline 25 mg Capsule 50 MG PO (21:22)
[2023-07-19] VITALS (13 sets, daily range): BP systolic 112–147; BP diastolic 54–80; PULSE 70–95; RESP 16–26; TEMP 36.4–37.2; O2SAT 89–100
[2023-07-19] MEDS: ipratropium-albuterol 3 mL Neb INHALATION ×3 (02:22→21:16)
[2023-07-19 04:02] LABS: Basophils % 0.1 %; Hematocrit 37.5 % (37-53); Lymphocytes # 1.4 10^3/uL (0.8-4.8); Lymphocytes % 16.9 %; Mean Corpuscular HGB Conc 30.1 g/dL (30-55); Mean Corpuscular Hemoglobin 25.9 pg (27-33); Mean Platelet Volume 9.4 fL (7.4-10.4); Monocytes % 12.5 %; Neutrophils # 5.73 10^3/uL (1.8-7.7); Neutrophils % 70.3 %; Nucleated Red Blood Cells % 0 %; Platelet Count 239 10^3/cmm (157-399); Red Blood Count 4.36 10^6/uL (3.85-5.65); Red Cell Distribution Width 16.5 % (12.1-15.1); White Blood Count 8.16 10^3/uL (3.29-11.43)
[2023-07-19 04:24] LABS: Anion Gap 10.9 (5-19); Blood Urea Nitrogen 32 mg/dL (8-23); Calcium 8.9 mg/dL (8.5-10.5); Carbon Dioxide 35 mmol/L (22-29); Chloride 104 mmol/L (98-107); Creatinine Clr Calc Pharmacy 62.2794; Glucose 124 mg/dL (65-115); Osmolality Calculated 310 mOsm/kg (285-295); Potassium 3.9 mmol/L (3.5-5.1); Sodium 146 mmol/L (136-145)
[2023-07-19] MEDS: FUROsemide 10 mg/mL SDV 10mL 60 MG IVP (04:30)
--- NOTE | 2023-07-19 06:00 | USCV_ITS ---
Andrew Sainz Age: 83 Gender: M : 1940 Exam Date: 07/19/2023 13:42 Ordering Phys: Alli Quinn MD ([email or web address]) Technologist: Exam Location: [facility] [place] Indication: ? veg BP: / HR: Rhythm: Sinus Technical Quality: Good MEASUREMENTS (Male / Female) Normal Values Medications IV propofol administered by the anesthesia service. Please refer to the anesthesia report. Complications None Proc. Components The JES was performed in the patient's room.the JES probe was passed into the posterior pharynx , mid-esophagus and distal esophagus. JES was performed at multiple levels. The patient tolerated the procedure well and there were no complications. FINDINGS Left Ventricle No intracardiac masses. Diffuse hypokinesia of the left- ventricular with moderately depressed ejection fraction Right Ventricle No intracardiac masses are noted Right Atrium Hypodense fluffy mobile elongated lesions were noted on the pacemaker wire in the right atrium, near to the eustachian valve Left Atrium No intracardiac masses noted LA Appendage Good contractility with no masses or vegetations IA Septum No evidence of ASD or PFO by color-flow Doppler exam Mitral Valve No masses or vegetations noted Aortic Valve No masses or vegetations noted Tricuspid Valve No masses or vegetations noted Pulmonic Valve No masses or vegetations noted Pericardium No pericardial effusion Aorta Aorta was found to be of normal size CONCLUSIONS Possible vegetation on the pacemaker wire, in the right atrium, near to the eustachian valve-measures 0.8 x 0.3 mm in size Mild to moderate mitral regurgitation No ASD or PFO by color-flow Doppler examination. Mildly dilated left-ventricular with a moderately depressed ejection fraction. No masses or vegetations were noted in the aortic, mitral, tricuspid or pulmonic valves Dr Alli Quinn MD FAC (Electronically Signed) Final Date: 19 July 2023 22:11 S
[2023-07-19] MEDS: montelukast sodium 10 mg Tablet PO (06:03)
[2023-07-19] MEDS: roflumilast 500 mcg Tablet PO (06:03)
[2023-07-19] MEDS: metoprolol succinate ER (24 HR) 25 mg Tablet PO (06:04)
[2023-07-19] MEDS: pantoprazole DR 40 mg Tablet PO (06:04)
[2023-07-19] MEDS: aspirin 81 mg EC Tablet PO (06:04)
[2023-07-19 06:46] LABS: Glucose Point of Care 118 mg/dL (70-110)
[2023-07-19] MEDS: budesonide 0.5 mg/2 mL Neb INHALATION ×2 (07:55→21:16)
[2023-07-19] MEDS: apixaban 5 mg Tablet PO ×2 (09:14→18:07)
[2023-07-19] MEDS: guaiFENesin 600 mg Tablet 1200 MG PO ×2 (09:14→17:57)
[2023-07-19] MEDS: predniSONE 10 mg Tablet PO (09:14)
[2023-07-19] MEDS: atorvastatin 40 mg Tablet PO (09:14)
[2023-07-19] MEDS: sucralfate 1 gm Tablet PO ×2 (09:14→17:57)
--- NOTE | 2023-07-19 10:17 | PC.SOCIAL ---
IMM Update pg 2 of IMM updated and reviewed w/ patient. Copy provided and copy dated, initialed and placed in chart.
--- NOTE | 2023-07-19 12:14 | W.PM.OPSUD ---
Surgery/Procedure H&P Update DATE OF PROCEDURE: July 19, 2023 DATE H&P PERFORMED: 07/17/23 H&P UPDATE INFORMATION: I have reviewed H&P completed within last 30 days, I have examined patient prior to procedure and No changes to prior documentation PREOP DIAGNOSIS: Bacteremia/rule out endocarditis PRIMARY INDICATION FOR PROCEDURE: Positive blood culture, rule out endocarditis PLANNED PROCEDURE: JES
[2023-07-19 12:30] LABS: Glucose Point of Care 123 mg/dL (70-110)
--- NOTE | 2023-07-19 14:50 | P.PN_ITS ---
Subjective 2 Subjective: Hospital course, labs appreciated. Examination patient sitting up comfortably bed. Denies any nausea, vomiting, headache. States breathing is a lot better now. Patient is back to his baseline oxygen supplementation of 2 to 3 L. Has remained hemodynamically stable and afebrile. Vitals/I&O/Wt Last Vital Signs Temp 97.9 F 07/19/23 12:37 Pulse 73 07/19/23 12:37 Resp 26 H 07/19/23 12:37 BP 112/54 07/19/23 12:37 Pulse Ox 89 L 07/19/23 12:37 O2 Del Method Nasal Cannula 07/19/23 07:54 O2 Flow Rate 3 07/19/23 07:54 07/18/23 07/19/23 07/19/23 22:59 06:59 14:59 Intake Total 240 / 770 Output Total 0 / 0 2700 / 2700 1750 / 1750 Balance 240 / 770 -2700 / -1930 -1750 / -1750 Weight last 48 hrs Weight 77.564 kg Physical Exam 2 Narrative: General: No acute distress, AO x3 HEENT: PERRLA, pupils bilaterally equal and reactive Chest: Bilateral bronchial breath sounds all over lung malone with occasional rhonchi, fine crackles present at bilateral lower zone CVS: S1-S2 regular, soft pansystolic murmur present at apex, no tachycardia, no gallops, no rubs Abdomen: Soft, nontender, no organomegaly, bowel sounds present Neuro: No focal deficits, no facial deformity, AO x3, power 5/5 in all limbs Data 07/19/23 03:27 07/19/23 03:27 A&P Assessment and plan (1) 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 Patient will need to complete IV antibiotic course for overall 6 weeks. Will continue IV ceftriaxone to finish a 6-week course. Restart on IV ceftriaxone 2 g daily. Repeat blood cultures from 07/14 so far negative. Last blood culture positive on 06/29. (2) CHF exacerbation: Patient seems euvolemic. Echocardiogram done shows an EF of 30% with mild to moderate MR. Mild hypernatremia. Patient overall net negative. Sodium up to 146. Patient has been n.p.o. for TTE. Hold off on any further diuresis for now. Stop metolazone. Most likely will transition to oral Lasix tomorrow. Fluid restriction up to 1500 cc. Strict input output charting. Daily weights. (3) Streptococcal bacteremia: As above. Initially IV ceftriaxone dose water 07/17. Will increase a 4-week course more. PICC line already in place. (4) COPD (chronic obstructive pulmonary disease): In moderate exacerbation on admission. Currently resolved. Patient at baseline oxygen supplementation. Continue with Pulmicort twice daily, DuoNeb every 6 hours. Continue with prednisone 10 mg oral daily. Will discharge on slow taper as an outpatient. Continue montelukast. Roflumilast. Qualifiers: COPD type: unspecified COPD Qualified Code(s): J44.9 - Chronic obstructive pulmonary disease, unspecified Plan Diabetes: Recent A1c 5.4. Continue sliding scale, CC diet. History of PE: Continue Eliquis PPM GERD: Continue PPI, sucralfate HLD: Continue statin BPH: Continue Flomax Goals of care: Confirmed with the patient. Full code. Would want CPR in case of cardiopulmonary arrest. Would want life support. Would not want protracted life support in case of being brain . Names friend and caregiver Emily Leiva as surrogate decision maker in case could not make decisions for himself. Attestations 2 Medical Necessity Statement*: Requires further hospitalization for management of infective endocarditis with IV ceftriaxone, congestive heart failure while outpatient antibiotics are to set up Diagnoses Infective endocarditis I33.0 CHF exacerbation I50.9 Streptococcal bacteremia R78.81; B95.5 Chronic obstructive pulmonary disease, unspecified COPD type J44.9 COPD type: unspecified COPD
[2023-07-19] MEDS: cefTRIAXone 2,000 MG in sodium chloride 0.9% (plus) 50 ML 100 MG IV (14:57)
[2023-07-19 17:27] LABS: Glucose Point of Care 172 mg/dL (70-110)
[2023-07-19] MEDS: insulin lispro 100 unit/1 mL SUBCUT ×2 (17:57→21:09)
--- NOTE | 2023-07-19 18:30 | PC.NURSE ---
jamar today with anesthesia,dr mancilla,and ultrasound in attendance.procedure started at 13:48.mod sedation given.vss through-out procedure.pt tolerated procedure well.pt awoke w/o difficulty.no issues with swollowing.
[2023-07-19 21:05] LABS: Glucose Point of Care 176 mg/dL (70-110)
[2023-07-19] MEDS: nortriptyline 25 mg Capsule 50 MG PO (21:09)
[2023-07-19] MEDS: tamsulosin 0.4 mg Capsule 0.400000000000000022 MG PO (21:09)
--- NOTE | 2023-07-19 21:48 | P.PN_ITS ---
Subjective 2 Subjective: Patient underwent the JES today. Was found to have hypoechoic mobile masses in the pacemaker lead in the atrium. Negative eustachian valve Medications: Medication Review Details: Current Medications Acetaminophen (Acetaminophen 325 Mg Tablet) 650 mg PO Q6H PRN PRN Reason: Mild/Mod Pain Or Temp >/= 101 Albuterol/Ipratropium (Ipratropium-Albuterol 3 Ml Neb) 3 ml INHALATION Q6H PRN PRN Reason: SHORTNESS OF BREATH Last Admin: 07/15/23 21:16 Dose: 3 ml Albuterol/Ipratropium (Ipratropium-Albuterol 3 Ml Neb) 3 ml INHALATION Q6H.RESP JOSE Last Admin: 07/19/23 21:16 Dose: 3 ml Apixaban (Apixaban 5 Mg Tablet) 5 mg PO BID JOSE Last Admin: 07/19/23 18:07 Dose: 5 mg Aspirin (Aspirin 81 Mg Ec Tablet) 81 mg PO QAM JOSE Last Admin: 07/19/23 06:04 Dose: 81 mg Atorvastatin Calcium (Atorvastatin 40 Mg Tablet) 40 mg PO DAILY JOSE Last Admin: 07/19/23 09:14 Dose: 40 mg Budesonide (Budesonide 0.5 Mg/2 Ml Neb) 0.5 mg INHALATION BID.RESPIRATORY JOSE Last Admin: 07/19/23 21:16 Dose: 0.5 mg Guaifenesin (Guaifenesin 600 Mg Tablet) 1,200 mg PO BID JOSE Last Admin: 07/19/23 17:57 Dose: 1,200 mg Dextrose (D5w) 500 mls @ 0 mls/hr IV ONCE PRN; Protocol PRN Reason: Adult Acute Hypoglycemia Prot Dextrose (D10w) 125 mls @ 750 mls/hr IV PRN PRN; Protocol PRN Reason: Adult Acute Hypoglycemia Nursing Protocol Dextrose (D10w) 250 mls @ 1,000 mls/hr IV PRN PRN; Protocol PRN Reason: Adult Acute Hypoglycemia Nursing Protocol Ceftriaxone Sodium 2,000 mg/ (Sodium Chloride) 50 mls @ 100 mls/hr IV Q24H JOSE; Protocol Last Admin: 07/19/23 14:57 Dose: 100 mls/hr Insulin Human Lispro (Insulin Lispro 100 Unit/1 Ml) 0 unit SUBCUT WM&BEDTIME JOSE; Protocol Last Admin: 07/19/23 21:09 Dose: 2 unit Metoprolol Succinate (Metoprolol Succinate Er (24 Hr) 25 Mg Tablet) [facility] [place] Admin: 07/19/23 06:04 Dose: 25 mg Montelukast Sodium (Montelukast Sodium 10 Mg Tablet) 10 mg PO QAM [facility] Last Admin: 07/19/23 06:03 Dose: 10 mg Non-Formulary Medication (Benralizumab [Fasenra Pen]) 30 mg SUBCUT .8 weeks [facility] Nortriptyline HCl (Nortriptyline 25 Mg Capsule) 50 mg PO BEDTIME [facility] Last Admin: 07/19/23 21:09 Dose: 50 mg Ondansetron HCl (Ondansetron 2 Mg/Ml Sdv 2 Ml) 4 mg IVP Q8H PRN PRN Reason: vomiting, or N/V if npo Pantoprazole Sodium (Pantoprazole Dr 40 Mg Tablet) 40 [facility] [place] Admin: 07/19/23 06:04 Dose: 40 mg Prednisone (Prednisone 10 Mg Tablet) 10 mg PO DAILY [facility] Last Admin: 07/19/23 09:14 Dose: 10 mg Roflumilast (Roflumilast 500 Mcg Tablet) 500 [facility] [place] Admin: 07/19/23 06:03 Dose: 500 mcg Sucralfate (Sucralfate 1 Gm Tablet) 1 gm PO BID [facility] Last Admin: 07/19/23 17:57 Dose: 1 gm Tamsulosin HCl (Tamsulosin 0.4 Mg Capsule) 0.4 mg PO BEDTIME [facility] Last Admin: 07/19/23 21:09 Dose: 0.4 mg Vitals/I&O/Wt Last Vital Signs Temp 98.9 F 07/19/23 20:00 Pulse 79 07/19/23 21:17 Resp 18 07/19/23 21:17 BP 116/67 07/19/23 20:00 Pulse Ox 95 07/19/23 21:17 O2 Del Method Nasal Cannula 07/19/23 21:17 O2 Flow Rate 3 07/19/23 21:17 07/19/23 07/19/23 07/19/23 06:59 14:59 22:59 Intake Total 360 / 360 Output Total 2700 / 2700 1750 / 1750 Balance -2700 / -1930 -1750 / -1750 360 / -1390 Weight last 48 hrs Weight 171 lb Physical Exam 2 Narrative: GENERAL: The patient is alert and oriented times three. Not in any acute distress. HEENT: No significant pallor, icterus or lymphadenopathy.Oral cavity: There are no mucous membrane lesions. NECK: Trachea appears to be central. No masses noted. No JVD or thyromegaly appreciated. RESPIRATORY: Breath sounds are heard bilaterally with extensive expiratory wheezing and some coarse crackles. BREASTS: Deferred. HEART: The heart sounds are normal. No S3 or S4. Short systolic murmur in the left upper border. No diastolic murmurs no pericardial rub ABDOMEN: No vessel pulsations or distention. No tenderness. No organomegaly appreciated. Bowel sounds are normally heard. : Deferred. RECTAL: Deferred. LYMPHATIC: No lymphadenopathy noted in the neck. EXTREMITIES: 1+ edema both lower extremities. No cyanosis. MUSCULOSKELETAL: No acute joint deformities or swelling SKIN: There are no significant rashes or ecchymosis NEUROPSYCHIATRIC: The patient is alert and oriented x3. Appears to be in a good mood. No tremors or rigidity noted. Data 07/19/23 03:27 07/19/23 03:27 Other Labs: Laboratory Last Values WBC 8.16 10^3/uL (3.29-11.43) 07/19/23 03: RBC 4.36 10^6/uL (3.85-5.65) 07/19/23 03:27 Hgb 11.30 g/dL (11.27-16.99) 07/19/23 03:27 Hct 37.5 % (37-53) 07/19/23 03:27 MCV 86.0 fl (82-101) 07/19/23 03:27 MCH 25.9 pg (27-33) L 07/19/23 03:27 MCHC 30.1 g/dL (30-55) 07/19/23 03:27 RDW 16.5 % (12.1-15.1) H 07/19/23 03:27 Plt Count 239 10^3/cmm (157-399) 07/19/23 03:27 MPV 9.4 fL (7.4-10.4) 07/19/23 03: Neut % (Auto) 70.3 % 07/19/23 03:27 Lymph % (Auto) 16.9 % 07/19/23 03:27 Wilson % (Auto) 12.5 % 07/19/23 03:27 Eos % (Auto) 0.0 % 07/19/23 03:27 Baso % (Auto) 0.1 % 07/19/23 03:27 Neut # (Auto) 5.73 10^3/uL (1.8-7.7) 07/19/23 03:27 Lymph # (Auto) 1.4 10^3/uL (0.8-4.8) 07/19/23 03:27 Wilson # (Auto) 1.0 10^3/uL (0.2-0.9) H 07/19/23 03:27 Eos # (Auto) 0.0 10^3/uL (0.0-0.8) 07/19/23 03: Baso # (Auto) 0.0 10^3/uL (0.0-0.1) 07/19/23 03:27 Nucleated RBC % (auto) 0 % 07/19/23 03:27 Nucleated RBCs # 0.0 /100WBC 07/19/23 03:27 Sodium 146 mmol/L (136-145) H 07/19/23 03:27 Potassium 3.9 mmol/L (3.5-5.1) 07/19/23 03:27 Chloride 104 mmol/L (98-107) 07/19/23 03:27 Carbon Dioxide 35 mmol/L (22-29) H 07/19/23 03:27 Anion Gap 10.9 (5-19) 07/19/23 03:27 BUN 32 mg/dL (8-23) H 07/19/23 03:27 Creatinine 1.0 mg/dL (0.7-1.2) 07/19/23 03:27 GFR Calculation Not Reportable 07/19/23 03:27 Glucose 124 mg/dL (65-115) H 07/19/23 03:27 POC Glucose 176 mg/dL (70-110) H 07/19/23 20:54 Calculated Osmolality 310 mOsm/kg (285-295) H 07/19/23 03:27 Lactic Acid 1.1 mmol/L (0.5-2.2) 07/15/23 13:05 Calcium 8.9 mg/dL (8.5-10.5) 07/19/23 03:27 Magnesium 2.0 mg/dL (1.7-2.3) 07/18/23 02:36 Total Bilirubin 0.4 mg/dL (0.15-1.2) 07/15/23 13:05 AST 25 U/L (0-40) 07/15/23 13:05 ALT 40 U/L (0-41) 07/15/23 13:05 Alkaline Phosphatase 92 U/L (40-130) 07/15/23 13:05 Troponin T Baseline 57 ng/L (0-15) H 07/15/23 13:05 Troponin T 120 Minute 66.29 ng/L (0-15) H 07/15/23 15:37 Delta Troponin T 9.29 ABS# (0-10) 07/15/23 15:37 C-Reactive Protein 40.3 mg/L (0.0-4.9) H 07/15/23 13:05 NT-Pro-B Natriuret Pep 7842 pg/mL (0-450) H 07/15/23 13:05 Total Protein 5.9 g/dL (6.6-8.7) L 07/15/23 13:05 Albumin 3.1 g/dL (3.5-5.2) L 07/15/23 13:05 Globulin 2.8 g/dL (1.3-4.6) 07/15/23 13:05 Procalcitonin 0.12 ng/mL (0-0.5) 07/15/23 13:05 Urine Color Yellow (Yellow) 07/18/23 01:48 Urine Appearance Clear (CLEAR) 07/18/23 01:48 Urine pH 7 (5-7) 07/18/23 01:48 Ur Specific [place] 1.010 (1.005-1.030) 07/18/23 01:48 Urine Protein Neg (Negative) 07/18/23 01:48 Urine Glucose (UA) Norm (Normal) 07/18/23 01:48 Urine Ketones Negative (Negative) 07/18/23 01:48 Urine Blood Neg (Negative) 07/18/23 01:48 Urine Nitrate Negative (Negative) 07/18/23 01:48 Urine Bilirubin Neg (Negative) 07/18/23 01:48 Urine Urobilinogen Neg mg/dL (Negative) 07/18/23 01:48 Ur Leukocyte Esterase Negative (Negative) 07/18/23 01:48 Adenovirus (PCR) Not detected (NOT DETECT) 07/15/23 13:14 C. pneumoniae DNA (PCR) Not detected (NOT DETECT) 07/15/23 13:14 Coronavirus 229E (PCR) Not detected (NOT DETECT) 07/15/23 13:14 Human Metapneumovir PCR Not detected (NOT DETECT) 07/15/23 13:14 Influenza A (H1) PCR Not detected (NOT DETECT) 07/15/23 13:14 Influ A (H1/09) PCR Not detected (NOT DETECT) 07/15/23 13:14 Influenza A (H3) PCR Not detected (NOT DETECT) 07/15/23 13:14 Influenza Type A (PCR) Not detected (NOT DETECT) 07/15/23 13:14 Influenza Type B (PCR) Not detected (NOT DETECT) 07/15/23 13:14 M. pneumoniae (PCR) Not detected (NOT DETECT) 07/15/23 13:14 Parainfluenza 1 (PCR) Not detected (NOT DETECT) 07/15/23 13:14 Parainfluenza 2 (PCR) Not detected (NOT DETECT) 07/15/23 13:14 Parainfluenza 3 (PCR) Not detected (NOT DETECT) 07/15/23 13:14 Parainfluenza 4 (PCR) Not detected (NOT DETECT) 07/15/23 13:14 RSV Type A (PCR) Not detected (NOT DETECT) 07/15/23 13:14 RSV Type B (PCR) Not detected (NOT DETECT) 07/15/23 13:14 Entero/Rhino (PCR) Not detected (NOT DETECT) 07/15/23 13:14 SARS-CoV-2 (PCR) Not detected (NOT DETECT) 07/15/23 13:14 A&P Assessment and plan (1) Streptococcal bacteremia: The blood culture grew Streptococcus oralis mitis on 07/01/2023. Patient had the JES today. Was found to have possible vegetation on the pacemaker lead near to the eustachian valve Patient had the initial pacemaker placement on 05/21/2010. May continue on the IV antibiotic at least for 6 weeks (2) COPD exacerbation: Clinically improving. May continue on the current measures. (3) Acute on chronic systolic heart failure: The heart failure seems to be fairly treated at this time. Need to optimize the GDMT (4) Atherosclerotic heart disease of [place] coronary artery with other forms of angina pectoris: Clinical history stable. Atypical chest symptoms. No evidence of myocardial injury. Plan The vegetation is small. No obvious PFO or atrial septal defect by color-flow Doppler examination. No evidence of any distal embolization. At this point, it may be appropriate to continue the antibiotic treatment. Attestations 2 Medical Necessity Statement*: Deferred to the primary Coding Level of Care Code 75264 Diagnoses Streptococcal bacteremia R78.81; B95.5 COPD exacerbation J44.1 Acute on chronic systolic heart failure I50.23 Atherosclerotic heart disease of [place] coronary artery with other forms of angina pectoris I25.118
[2023-07-20] VITALS (12 sets, daily range): BP systolic 106–135; BP diastolic 57–77; PULSE 76–98; RESP 16–20; TEMP 36.4–36.8; O2SAT 95–100
[2023-07-20] MEDS: ipratropium-albuterol 3 mL Neb INHALATION ×3 (02:29→13:49)
[2023-07-20 03:36] LABS: Basophils % 0.1 %; Hematocrit 35.8 % (37-53); Lymphocytes # 1.4 10^3/uL (0.8-4.8); Lymphocytes % 19.3 %; Mean Corpuscular HGB Conc 29.6 g/dL (30-55); Mean Corpuscular Hemoglobin 25.1 pg (27-33); Mean Corpuscular Volume 84.8 fl (82-101); Mean Platelet Volume 9.4 fL (7.4-10.4); Monocytes # 0.7 10^3/uL (0.2-0.9); Monocytes % 9.8 %; Neutrophils # 5.27 10^3/uL (1.8-7.7); Neutrophils % 70.4 %; Nucleated Red Blood Cells % 0 %; Platelet Count 246 10^3/cmm (157-399); Red Blood Count 4.22 10^6/uL (3.85-5.65); Red Cell Distribution Width 16.4 % (12.1-15.1); White Blood Count 7.48 10^3/uL (3.29-11.43)
[2023-07-20 04:02] LABS: Alanine Aminotransferase 25 U/L (0-41); Albumin Level 2.9 g/dL (3.5-5.2); Alkaline Phosphatase 85 U/L (40-130); Aspartate Amino Transferase 20 U/L (0-40); Blood Urea Nitrogen 38 mg/dL (8-23); Calcium 9.1 mg/dL (8.5-10.5); Carbon Dioxide 33 mmol/L (22-29); Chloride 104 mmol/L (98-107); Creatinine Clr Calc Pharmacy 68.2087; Globulin 2.9 g/dL (1.3-4.6); Glucose 135 mg/dL (65-115); Osmolality Calculated 307 mOsm/kg (285-295); Sodium 143 mmol/L (136-145); Total Bilirubin 0.2 mg/dL (0.15-1.2); Total Protein 5.8 g/dL (6.6-8.7)
[2023-07-20] MEDS: aspirin 81 mg EC Tablet PO (06:24)
[2023-07-20] MEDS: roflumilast 500 mcg Tablet PO (06:24)
[2023-07-20] MEDS: metoprolol succinate ER (24 HR) 25 mg Tablet PO (06:24)
[2023-07-20] MEDS: montelukast sodium 10 mg Tablet PO (06:24)
[2023-07-20] MEDS: pantoprazole DR 40 mg Tablet PO (06:24)
[2023-07-20 06:27] LABS: Glucose Point of Care 150 mg/dL (70-110)
[2023-07-20] MEDS: budesonide 0.5 mg/2 mL Neb INHALATION (08:18)
[2023-07-20] MEDS: sucralfate 1 gm Tablet PO (08:53)
[2023-07-20] MEDS: guaiFENesin 600 mg Tablet 1200 MG PO (08:53)
[2023-07-20] MEDS: apixaban 5 mg Tablet PO (08:53)
[2023-07-20] MEDS: predniSONE 10 mg Tablet PO (08:53)
[2023-07-20] MEDS: insulin lispro 100 unit/1 mL SUBCUT (08:54)
[2023-07-20] MEDS: atorvastatin 40 mg Tablet PO (08:54)
--- NOTE | 2023-07-20 10:08 | P.DS_ITS ---
Discharge Providers Date of Admission: 07/15/23 19:25 Date of Discharge: July 20, 2023 Attending Provider at Admission: Hernando Ko Attending Provider at Discharge: Feliz Perea MD Consults: Cardiology: Dr. Quinn Primary Care Provider: [facility] Andrew Diagnoses at Discharge Discharge Diagnosis (1) Streptococcal bacteremia: Status: Acute (2) COPD exacerbation: Status: Acute (3) Acute on chronic systolic heart failure: Status: Acute (4) Atherosclerotic heart disease of [place] coronary artery with other forms of angina pectoris: Status: Acute Reason for Visit Reason for Visit: RESP DISTRESS Brief History: History as per HPI: Pleasant 83-year-old gentleman with history of HFrEF, EF 30%, history of COPD, chronic hypoxic respiratory failure normally on 4 L nasal cannula oxygen, PE on anticoagulation with Eliquis, eosinophilic asthma, pacemaker, diabetes, other medical problems recently hospitalized and treated for acute respiratory failure, CHF exacerbation, COPD exacerbation, pneumonia, also found to have streptococcal bacteremia and has been undergoing outpatient IV infusions via left arm PICC line daily at the cancer center, with completion date this Monday 07/17. He came to ER complaining of worsened shortness of breath, dyspnea on exertion, and episode of sharp left-sided chest pain. While at the clinic today oxygen saturations were found to be in the 60s. She has had worsening swelling of his lower extremities. He states he does try to elevate them when he can, but that does not significantly help the swelling. He denies current chest pain or pressure. He has not had more cough than usual, states he does get some cough with exertion. Hospital Course Hospital Course Patient was admitted to the hospital further evaluation and management of hypoxic respiratory failure in setting of congestive heart failure. He was started on aggressive IV diuresis. Given his recent history of streptococcal bacteremia he was continued on IV ceftriaxone to finish a course of antibiotic. As per the patient he has been on antibiotics since discharge but he did miss his first 3-day of antibiotics post discharge because he does not have any ride. His hospital stay was unremarkable. Blood cultures during hospitalization remained negative. Cardiology was consulted and he underwent JES to rule out infective endocarditis given recent Streptococcus bacteremia. JES was concerning for a possible small vegetation on the pacemaker lead. Given patient being afebrile, repeat blood cultures being negative, no changes in the impedance at pacemaker interrogation, pacemaker lead being over 10 years old decision was made to continue IV antibiotics for 4 more weeks to finish 6 weeks of IV antibiotic course versus surgical intervention. Home health has been set up for IV antibiotics. He will have a repeat blood culture after completion of IV antibiotic course to confirm the clearance of blood cultures. He responded well to IV diuresis as well and has been discharged on oral Lasix. Physical Exam Narrative: General: No acute distress, AO x3 HEENT: PERRLA, pupils bilaterally equal and reactive Chest: Bilateral bronchial breath sounds all over lung malone with occasional rhonchi, fine crackles present at bilateral lower zone CVS: S1-S2 regular, soft pansystolic murmur present at apex, no tachycardia, no gallops, no rubs Abdomen: Soft, nontender, no organomegaly, bowel sounds present Neuro: No focal deficits, no facial deformity, AO x3, power 5/5 in all limbs Discharge Data Studies Completed and Pending Completed Studies During Hospitalization Category Date Time Status XR chest 1V [id number] Stat Exams 07/15/23 12:14 Completed CV. echo complete* [id number] Routine Ultrasound 07/16/23 09:31 Completed CV. echo transesophageal [id number] Routine Ultrasound 07/19/23 06:00 Completed Pending at discharge Category Date Time Status Blood Culture Stat Lab 07/15/23 13:09 Results Complete Blood Count w/Auto AM LABS Lab 07/21/23 04:00 Ordered Comprehensive Metabolic Panel AM LABS Lab 07/21/23 04:00 Ordered Comprehensive Metabolic Panel AM LABS Lab 07/22/23 04:00 Ordered ESR [Erythrocyte Sedimentation Rate] Routine Lab 07/20/23 10:08 Ordered Radiology Impressions Chest X-Ray 07/15/23 12:14 IMPRESSION: Imaging findings of pulmonary edema with small bilateral pleural effusions. Pneumonia should be excluded clinically. Microbiology 07/15/23 13:09 Blood Blood Culture - Final NO GROWTH AFTER 5 DAYS 07/15/23 13:05 Blood Blood Culture - Final NO GROWTH AFTER 5 DAYS JES: CONCLUSIONS Possible vegetation on the pacemaker wire, in the right atrium, near to the eustachian valve-measures 0.8 x 0.3 mm in size Mild to moderate mitral regurgitation No ASD or PFO by color-flow Doppler examination. Mildly dilated left-ventricular with a moderately depressed ejection fraction. No masses or vegetations were noted in the aortic, mitral, tricuspid or pulmonic valves Dr Alli Quinn MD [facility] (Electronically Signed) Final Date: 19 July 2023 Laboratory Results WBC 7.48 10^3/uL (3.29-11.43) 07/20/23 03:17 RBC 4.22 10^6/uL (3.85-5.65) 07/20/23 03:17 Hgb 10.60 g/dL (11.27-16.99) L 07/20/23 03:17 Hct 35.8 % (37-53) L 07/20/23 03:17 MCV 84.8 fl (82-101) 07/20/23 03:17 MCH 25.1 pg (27-33) L 07/20/23 03:17 MCHC 29.6 g/dL (30-55) L 07/20/23 03:17 RDW 16.4 % (12.1-15.1) H 07/20/23 03:17 Plt Count 246 10^3/cmm (157-399) 07/20/23 03:17 MPV 9.4 fL (7.4-10.4) 07/20/23 03:17 Neut % (Auto) 70.4 % 07/20/23 03:17 Lymph % (Auto) 19.3 % 07/20/23 03:17 Isabella % (Auto) 9.8 % 07/20/23 03:17 Eos % (Auto) 0.0 % 07/20/23 03:17 Baso % (Auto) 0.1 % 07/20/23 03:17 Neut # (Auto) 5.27 10^3/uL (1.8-7.7) 07/20/23 03:17 Lymph # (Auto) 1.4 10^3/uL (0.8-4.8) 07/20/23 03:17 Isabella # (Auto) 0.7 10^3/uL (0.2-0.9) 07/20/23 03:17 Eos # (Auto) 0.0 10^3/uL (0.0-0.8) 07/20/23 03:17 Baso # (Auto) 0.0 10^3/uL (0.0-0.1) 07/20/23 03:17 Nucleated RBC % (auto) 0 % 07/20/23 03:17 Nucleated RBCs # 0.0 /100WBC 07/20/23 03:17 Sodium 143 mmol/L (136-145) 07/20/23 03:17 Potassium 4.0 mmol/L (3.5-5.1) 07/20/23 03:17 Chloride 104 mmol/L (98-107) 07/20/23 03:17 Carbon Dioxide 33 mmol/L (22-29) H 07/20/23 03:17 Anion Gap 10.0 (5-19) 07/20/23 03:17 BUN 38 mg/dL (8-23) H 07/20/23 03:17 Creatinine 0.9 mg/dL (0.7-1.2) 07/20/23 03:17 GFR Calculation Not Reportable 07/20/23 03:17 Glucose 135 mg/dL (65-115) H 07/20/23 03:17 POC Glucose 150 mg/dL (70-110) H 07/20/23 06:17 Calculated Osmolality 307 mOsm/kg (285-295) H 07/20/23 03:17 Lactic Acid 1.1 mmol/L (0.5-2.2) 07/15/23 13:05 Calcium 9.1 mg/dL (8.5-10.5) 07/20/23 03:17 Magnesium 2.0 mg/dL (1.7-2.3) 07/18/23 02:36 Total Bilirubin 0.2 mg/dL (0.15-1.2) 07/20/23 03:17 AST 20 U/L (0-40) 07/20/23 03:17 ALT 25 U/L (0-41) 07/20/23 03:17 Alkaline Phosphatase 85 U/L (40-130) 07/20/23 03:17 Troponin T Baseline 57 ng/L (0-15) H 07/15/23 13:05 Troponin T 120 Minute 66.29 ng/L (0-15) H 07/15/23 15:37 Delta Troponin T 9.29 ABS# (0-10) 07/15/23 15:37 C-Reactive Protein 40.3 mg/L (0.0-4.9) H 07/15/23 13:05 NT-Pro-B Natriuret Pep 7842 pg/mL (0-450) H 07/15/23 13:05 Total Protein 5.8 g/dL (6.6-8.7) L 07/20/23 03:17 Albumin 2.9 g/dL (3.5-5.2) L 07/20/23 03:17 Globulin 2.9 g/dL (1.3-4.6) 07/20/23 03:17 Procalcitonin 0.12 ng/mL (0-0.5) 07/15/23 13:05 Urine Color Yellow (Yellow) 07/18/23 01:48 Urine Appearance Clear (CLEAR) 07/18/23 01:48 Urine pH 7 (5-7) 07/18/23 01:48 Ur Specific [place] 1.010 (1.005-1.030) 07/18/23 01:48 Urine Protein Neg (Negative) 07/18/23 01:48 Urine Glucose (UA) Norm (Normal) 07/18/23 01:48 Urine Ketones Negative (Negative) 07/18/23 01:48 Urine Blood Neg (Negative) 07/18/23 01:48 Urine Nitrate Negative (Negative) 07/18/23 01:48 Urine Bilirubin Neg (Negative) 07/18/23 01:48 Urine Urobilinogen Neg mg/dL (Negative) 07/18/23 01:48 Ur Leukocyte Esterase Negative (Negative) 07/18/23 01:48 Adenovirus (PCR) Not detected (NOT DETECT) 07/15/23 13:14 C. pneumoniae DNA (PCR) Not detected (NOT DETECT) 07/15/23 13:14 Coronavirus 229E (PCR) Not detected (NOT DETECT) 07/15/23 13:14 Human Metapneumovir PCR Not detected (NOT DETECT) 07/15/23 13:14 Influenza A (H1) PCR Not detected (NOT DETECT) 07/15/23 13:14 Influ A (H1/09) PCR Not detected (NOT DETECT) 07/15/23 13:14 Influenza A (H3) PCR Not detected (NOT DETECT) 07/15/23 13:14 Influenza Type A (PCR) Not detected (NOT DETECT) 07/15/23 13:14 Influenza Type B (PCR) Not detected (NOT DETECT) 07/15/23 13:14 M. pneumoniae (PCR) Not detected (NOT DETECT) 07/15/23 13:14 Parainfluenza 1 (PCR) Not detected (NOT DETECT) 07/15/23 13:14 Parainfluenza 2 (PCR) Not detected (NOT DETECT) 07/15/23 13:14 Parainfluenza 3 (PCR) Not detected (NOT DETECT) 07/15/23 13:14 Parainfluenza 4 (PCR) Not detected (NOT DETECT) 07/15/23 13:14 RSV Type A (PCR) Not detected (NOT DETECT) 07/15/23 13:14 RSV Type B (PCR) Not detected (NOT DETECT) 07/15/23 13:14 Entero/Rhino (PCR) Not detected (NOT DETECT) 07/15/23 13:14 SARS-CoV-2 (PCR) Not detected (NOT DETECT) 07/15/23 13:14 Vitals Last Vital Signs Temp 98.2 F 07/20/23 08:00 Pulse 81 07/20/23 08:18 Resp 18 07/20/23 08:18 BP 106/77 07/20/23 08:00 Pulse Ox 95 07/20/23 08:18 O2 Del Method Nasal Cannula 07/20/23 08:18 O2 Flow Rate 2 07/20/23 08:18 Discharge Plan Discharge Patient Disposition: Home Health Service Condition: Stable Prescriptions: New prednisone 10 mg Tablet 10 mg PO DAILY Qty: 5 0RF ceftriaxone 2 gram recon soln 2 g IV DAILY Qty: 26 0RF Continued (DME) Easy Touch Safety Lancets 32 gauge misc See Rx Instructions .Route Qty: 100 2RF Rx Instructions: use 3 times day as needed (DME) pen needle, diabetic [BD Ultra-Fine Domi Pen Needle] 32 gauge x 5/32 needle See Rx Instructions .ROUTE .MEDSUPPLY Qty: 100 5RF Rx Instructions: 3 times day as needed (DME) Easy Touch Ambrocio Link Test Strip Strip See Rx Instructions .Route Qty: 50 5RF Rx Instructions: As directed Fasenra Pen 30 mg/mL auto-injector 30 mg SUBCUT .8 weeks Qty: 1 6RF Hold Instructions: Resume on 07/19/23. Rx Instructions: maintenance dose Adult Low Dose Aspirin 81 mg tablet,delayed release (DR/EC) 81 mg PO QAM Qty: 30 5RF levocetirizine 5 mg tablet 5 mg PO DAILY Qty: 90 0RF sucralfate [Carafate] 1 gram tablet 1 g PO BID Qty: 60 2RF omeprazole 40 mg capsule,delayed release(DR/EC) 40 mg PO QAM Qty: 30 2RF metoprolol succinate 25 mg tablet extended release 24 hr 25 mg PO QAM Qty: 90 0RF Rx Instructions: note dose decrease if heart less 60 use 1/2 tablet Breztri Aerosphere 160-9-4.8 mcg/actuation HFA aerosol inhaler 2 inh inhalation BID Qty: 10.7 2RF ipratropium-albuterol 0.5 mg-3 mg(2.5 mg base)/3 mL solution for nebulization 3 ml inhalation Q4H PRN (Reason: shortness of breath or wheezing) Qty: 300 2RF rosuvastatin 40 mg tablet 40 mg PO DAILY 30 Days Qty: 30 2RF nortriptyline 50 mg capsule 50 mg PO BEDTIME Qty: 30 2RF Daliresp 500 mcg tablet 500 mcg PO QAM Qty: 30 2RF montelukast 10 mg tablet 10 mg PO QAM Qty: 90 0RF albuterol sulfate [ProAir HFA] 90 mcg/actuation HFA aerosol inhaler 2 puff INHALATION Q4H PRN (Reason: shortness of breath or wheezing) Qty: 1 2RF fluticasone propionate 50 mcg/actuation spray,suspension 2 spray INTRANASAL DAILY Qty: 9.9 2RF Eliquis 5 mg tablet 5 mg PO BID Qty: 60 2RF semaglutide 0.25 mg or 0.5 mg (2 mg/3 mL) pen injector 0.25 mg SUBCUT Q7D Qty: 3 2RF Rx Instructions: on wednesday Flomax 0.4 mg capsule 0.4 mg PO BEDTIME Qty: 30 2RF ascorbic acid (vitamin C) [Vitamin C] 500 mg Tablet 500 mg PO DAILY PRN (Reason: unknown) cinnamon bark [Cinnamon] 500 mg Capsule 500 mg PO DAILY Probiotic Blend 2 billion cell-50 mg Capsule 1 cap PO BID Rx Instructions: give with meal/snack omega-3 fatty acids 1,000 mg Capsule 1,000 mg PO BID Changed furosemide 40 mg tablet 40 mg PO BID Qty: 45 2RF Discharge Orders: Discharge Order (Routine); Ordered 07/20/23 Ordered By: Feliz Perea Referrals: [facility] [Other] [facility] [Outside] Jordy Singer, [facility] [Primary Care Provider] - 07/21/23 1:40 pm (Please keep your appointment that is scheduled tomorrow July 20 at 1:40p.m. Rolank you! ) Marisel Dow FNP [Nurse Practitioner] - 08/02/23 2:30 pm Discharge Diet: Cardiac Discharge Activity: Resume usual activity and Increase activity as tolerated Patient Instructions: Heart Failure (DC), Endocarditis (DC), COPD (Chronic Obstructive Pulmonary Disease) (DC), Edema (DC), CHF Stoplight, COPD Stoplight, Opioid Safety Activity Restrictions/Additional Instructions: Restrict fluid intake to less than 1500 cc, salt intake to less than 2 g daily. Advised to check his weight daily at home. Is advised that weight today would be the dry weight and if body weight increases by around 5 pounds, patient is to take an extra dose of Lasix daily till body weight comes down to weight today. If not able to come down to dry body weight in 1 week, then is to call cardiology office for further recommendations. Patient was counseled in detail to take medications regularly as prescribed. Continue IV ceftriaxone for 4 more weeks. Should have repeat blood culture after completion of IV antibiotic course. Weekly CBC BMP and ESR. Should be followed up by primary care provider. Please follow-up with Marisel Dow from cardiology in 2 weeks onsite appointment. Discharge Attestations Time Spent in Discharge Care*: greater than 30 min Specific Discharge Activities: educating patient, discussing with pcp/other providers, discussing with case finisher/social workers/dc planners, documenting/other paperwork and evaluating patient/reviewing data Status at Discharge: Cognitive status at discharge: cognitively intact , Behavioral status at discharge: cooperative , Functional status at discharge: independent ambulation , Overall status at discharge: patient is back to baseline Quality Metrics Clinical Quality Measures [ No reported AMI, CVA or VTE this stay] Coding Level of Care Code 03695 Total time (in minutes) for Discharge: 60 Diagnoses Streptococcal bacteremia R78.81; B95.5 COPD exacerbation J44.1 Acute on chronic systolic heart failure I50.23 Atherosclerotic heart disease of [place] coronary artery with other forms of angina pectoris I25.118
[2023-07-20 10:56] LABS: Erythrocyte Sedimentation Rate 32 mm/hr (0-10)
[2023-07-20 11:39] LABS: Glucose Point of Care 108 mg/dL (70-110)
[2023-07-20] MEDS: FUROsemide 40 mg Tablet PO (13:09)
--- NOTE | 2023-07-20 13:16 | P.PN_ITS ---
Subjective 2 Subjective: The patient is feeling okay. Remains afebrile. Had the JES yesterday. He was found to have possible vegetation in the pacemaker lead new to the eustachian valve. Apparently patient has not had any bacterial growth on the blood drawn on 07/01/2023 and 07/15/2023. Medications: Medication Review Details: Current Medications Acetaminophen (Acetaminophen 325 Mg Tablet) 650 mg PO Q6H PRN PRN Reason: Mild/Mod Pain Or Temp >/= 101 Albuterol/Ipratropium (Ipratropium-Albuterol 3 Ml Neb) 3 ml INHALATION Q6H PRN PRN Reason: SHORTNESS OF BREATH Last Admin: 07/15/23 21:16 Dose: 3 ml Albuterol/Ipratropium (Ipratropium-Albuterol 3 Ml Neb) 3 ml INHALATION Q6H.RESP JOSE Last Admin: 07/20/23 08:18 Dose: 3 ml Apixaban (Apixaban 5 Mg Tablet) 5 mg PO BID JOSE Last Admin: 07/20/23 08:53 Dose: 5 mg Aspirin (Aspirin 81 Mg Ec Tablet) 81 mg PO QAM JOSE Last Admin: 07/20/23 06:24 Dose: 81 mg Atorvastatin Calcium (Atorvastatin 40 Mg Tablet) 40 mg PO DAILY JOSE Last Admin: 07/20/23 08:54 Dose: 40 mg Budesonide (Budesonide 0.5 Mg/2 Ml Neb) 0.5 mg INHALATION BID.RESPIRATORY JOSE Last Admin: 07/20/23 08:18 Dose: 0.5 mg Furosemide (Furosemide 40 Mg Tablet) 40 mg PO BID@08,16 [facility] Last Admin: 07/20/23 13:09 Dose: 40 mg Guaifenesin (Guaifenesin 600 Mg Tablet) 1,200 mg PO BID [facility] Last Admin: 07/20/23 08:53 Dose: 1,200 mg Dextrose (D5w) 500 mls @ 0 mls/hr IV ONCE PRN; Protocol PRN Reason: Adult Acute Hypoglycemia Prot Dextrose (D10w) 125 mls @ 750 mls/hr IV PRN PRN; Protocol PRN Reason: Adult Acute Hypoglycemia Nursing Protocol Dextrose (D10w) 250 mls @ 1,000 mls/hr IV PRN PRN; Protocol PRN Reason: Adult Acute Hypoglycemia Nursing Protocol Ceftriaxone Sodium 2,000 mg/ (Sodium Chloride) 50 mls @ 100 mls/hr IV Q24H [facility]; Protocol Last Admin: 07/19/23 14:57 Dose: 100 mls/hr Insulin Human Lispro (Insulin Lispro 100 Unit/1 Ml) 0 unit SUBCUT WM&BEDTIME [facility]; Protocol Last Admin: 07/20/23 13:03 Dose: Not Given Metoprolol Succinate (Metoprolol Succinate Er (24 Hr) 25 Mg Tablet) 25 mg PO QAM [facility] Last Admin: 07/20/23 06:24 Dose: 25 mg Montelukast Sodium (Montelukast Sodium 10 Mg Tablet) 10 mg PO QAM [facility] Last Admin: 07/20/23 06:24 Dose: 10 mg Non-Formulary Medication (Benralizumab [Fasenra Pen]) 30 mg SUBCUT .8 weeks [facility] Nortriptyline HCl (Nortriptyline 25 Mg Capsule) 50 mg PO BEDTIME [facility] Last Admin: 07/19/23 21:09 Dose: 50 mg Ondansetron HCl (Ondansetron 2 Mg/Ml Sdv 2 Ml) 4 mg IVP Q8H PRN PRN Reason: vomiting, or N/V if npo Pantoprazole Sodium (Pantoprazole Dr 40 Mg Tablet) 40 mg PO QAM [facility] Last Admin: 07/20/23 06:24 Dose: 40 mg Prednisone (Prednisone 10 Mg Tablet) 10 mg PO DAILY [facility] Last Admin: 07/20/23 08:53 Dose: 10 mg Roflumilast (Roflumilast 500 Mcg Tablet) 500 mcg PO QAM [facility] Last Admin: 07/20/23 06:24 Dose: 500 mcg Sucralfate (Sucralfate 1 Gm Tablet) 1 gm PO BID [facility] Last Admin: 07/20/23 08:53 Dose: 1 gm Tamsulosin HCl (Tamsulosin 0.4 Mg Capsule) 0.4 mg PO BEDTIME [facility] Last Admin: 07/19/23 21:09 Dose: 0.4 mg Vitals/I&O/Wt Last Vital Signs Temp 97.8 F 07/20/23 11:30 Pulse 83 07/20/23 11:30 Resp 16 07/20/23 11:30 BP 110/59 07/20/23 11:30 Pulse Ox 96 07/20/23 11:30 O2 Del Method Nasal Cannula 07/20/23 11:30 O2 Flow Rate 2 07/20/23 08:18 07/19/23 07/20/23 07/20/23 22:59 06:59 14:59 Intake Total 360 / 360 540 / 540 Output Total 200 / 1950 Balance 360 / -1390 -200 / -1590 540 / 540 Weight last 48 hrs Weight 170 lb 8 oz Weight 170 lb 8 oz Weight 171 lb Physical Exam 2 Narrative: GENERAL: The patient is alert and oriented times three. Not in any acute distress. HEENT: No significant pallor, icterus or lymphadenopathy.Oral cavity: There are no mucous membrane lesions. NECK: Trachea appears to be central. No masses noted. No JVD or thyromegaly appreciated. RESPIRATORY: Breath sounds are heard bilaterally with extensive expiratory wheezing and some coarse crackles. BREASTS: Deferred. HEART: The heart sounds are normal. No S3 or S4. Short systolic murmur in the left upper border. No diastolic murmurs no pericardial rub ABDOMEN: No vessel pulsations or distention. No tenderness. No organomegaly appreciated. Bowel sounds are normally heard. : Deferred. RECTAL: Deferred. LYMPHATIC: No lymphadenopathy noted in the neck. EXTREMITIES: 1+ edema both lower extremities. No cyanosis. MUSCULOSKELETAL: No acute joint deformities or swelling SKIN: There are no significant rashes or ecchymosis NEUROPSYCHIATRIC: The patient is alert and oriented x3. Appears to be in a good mood. No tremors or rigidity noted. Data 07/20/23 03:17 07/20/23 03:17 Other Labs: Laboratory Last Values WBC 7.48 10^3/uL (3.29-11.43) 07/20/23 03:17 RBC 4.22 10^6/uL (3.85-5.65) 07/20/23 03:17 Hgb 10.60 g/dL (11.27-16.99) L 07/20/23 03:17 Hct 35.8 % (37-53) L 07/20/23 03:17 MCV 84.8 fl (82-101) 07/20/23 03:17 MCH 25.1 pg (27-33) L 07/20/23 03:17 MCHC 29.6 g/dL (30-55) L 07/20/23 03:17 RDW 16.4 % (12.1-15.1) H 07/20/23 03:17 Plt Count 246 10^3/cmm (157-399) 07/20/23 03:17 MPV 9.4 fL (7.4-10.4) 07/20/23 03:17 Neut % (Auto) 70.4 % 07/20/23 03:17 Lymph % (Auto) 19.3 % 07/20/23 03:17 [place] % (Auto) 9.8 % 07/20/23 03:17 Eos % (Auto) 0.0 % 07/20/23 03:17 Baso % (Auto) 0.1 % 07/20/23 03:17 Neut # (Auto) 5.27 10^3/uL (1.8-7.7) 07/20/23 03:17 Lymph # (Auto) 1.4 10^3/uL (0.8-4.8) 07/20/23 03:17 [place] # (Auto) 0.7 10^3/uL (0.2-0.9) 07/20/23 03:17 Eos # (Auto) 0.0 10^3/uL (0.0-0.8) 07/20/23 03:17 Baso # (Auto) 0.0 10^3/uL (0.0-0.1) 07/20/23 03:17 Nucleated RBC % (auto) 0 % 07/20/23 03:17 Nucleated RBCs # 0.0 /100WBC 07/20/23 03:17 ESR 32 mm/hr (0-10) H 07/20/23 03:17 Sodium 143 mmol/L (136-145) 07/20/23 03:17 Potassium 4.0 mmol/L (3.5-5.1) 07/20/23 03:17 Chloride 104 mmol/L (98-107) 07/20/23 03:17 Carbon Dioxide 33 mmol/L (22-29) H 07/20/23 03:17 Anion Gap 10.0 (5-19) 07/20/23 03:17 BUN 38 mg/dL (8-23) H 07/20/23 03:17 Creatinine 0.9 mg/dL (0.7-1.2) 07/20/23 03:17 GFR Calculation Not Reportable 07/20/23 03:17 Glucose 135 mg/dL (65-115) H 07/20/23 03:17 POC Glucose 108 mg/dL (70-110) 07/20/23 11:29 Calculated Osmolality 307 mOsm/kg (285-295) H 07/20/23 03:17 Lactic Acid 1.1 mmol/L (0.5-2.2) 07/15/23 13:05 Calcium 9.1 mg/dL (8.5-10.5) 07/20/23 03:17 Magnesium 2.0 mg/dL (1.7-2.3) 07/18/23 02:36 Total Bilirubin 0.2 mg/dL (0.15-1.2) 07/20/23 03:17 AST 20 U/L (0-40) 07/20/23 03:17 ALT 25 U/L (0-41) 07/20/23 03:17 Alkaline Phosphatase 85 U/L (40-130) 07/20/23 03:17 Troponin T Baseline 57 ng/L (0-15) H 07/15/23 13:05 Troponin T 120 Minute 66.29 ng/L (0-15) H 07/15/23 15:37 Delta Troponin T 9.29 ABS# (0-10) 07/15/23 15:37 C-Reactive Protein 40.3 mg/L (0.0-4.9) H 07/15/23 13:05 NT-Pro-B Natriuret Pep 7842 pg/mL (0-450) H 07/15/23 13:05 Total Protein 5.8 g/dL (6.6-8.7) L 07/20/23 03:17 Albumin 2.9 g/dL (3.5-5.2) L 07/20/23 03:17 Globulin 2.9 g/dL (1.3-4.6) 07/20/23 03:17 Procalcitonin 0.12 ng/mL (0-0.5) 07/15/23 13:05 Urine Color Yellow (Yellow) 07/18/23 01:48 Urine Appearance Clear (CLEAR) 07/18/23 01:48 Urine pH 7 (5-7) 07/18/23 01:48 Ur Specific [place] 1.010 (1.005-1.030) 07/18/23 01:48 Urine Protein Neg (Negative) 07/18/23 01:48 Urine Glucose (UA) Norm (Normal) 07/18/23 01:48 Urine Ketones Negative (Negative) 07/18/23 01:48 Urine Blood Neg (Negative) 07/18/23 01:48 Urine Nitrate Negative (Negative) 07/18/23 01:48 Urine Bilirubin Neg (Negative) 07/18/23 01:48 Urine Urobilinogen Neg mg/dL (Negative) 07/18/23 01:48 Ur Leukocyte Esterase Negative (Negative) 07/18/23 01:48 Adenovirus (PCR) Not detected (NOT DETECT) 07/15/23 13:14 C. pneumoniae DNA (PCR) Not detected (NOT DETECT) 07/15/23 13:14 Coronavirus 229E (PCR) Not detected (NOT DETECT) 07/15/23 13:14 Human Metapneumovir PCR Not detected (NOT DETECT) 07/15/23 13:14 Influenza A (H1) PCR Not detected (NOT DETECT) 07/15/23 13:14 Influ A (H1/09) PCR Not detected (NOT DETECT) 07/15/23 13:14 Influenza A (H3) PCR Not detected (NOT DETECT) 07/15/23 13:14 Influenza Type A (PCR) Not detected (NOT DETECT) 07/15/23 13:14 Influenza Type B (PCR) Not detected (NOT DETECT) 07/15/23 13:14 M. pneumoniae (PCR) Not detected (NOT DETECT) 07/15/23 13:14 Parainfluenza 1 (PCR) Not detected (NOT DETECT) 07/15/23 13:14 Parainfluenza 2 (PCR) Not detected (NOT DETECT) 07/15/23 13:14 Parainfluenza 3 (PCR) Not detected (NOT DETECT) 07/15/23 13:14 Parainfluenza 4 (PCR) Not detected (NOT DETECT) 07/15/23 13:14 RSV Type A (PCR) Not detected (NOT DETECT) 07/15/23 13:14 RSV Type B (PCR) Not detected (NOT DETECT) 07/15/23 13:14 Entero/Rhino (PCR) Not detected (NOT DETECT) 07/15/23 13:14 SARS-CoV-2 (PCR) Not detected (NOT DETECT) 07/15/23 13:14 A&P Assessment and plan (1) Streptococcal bacteremia: The blood culture grew Streptococcus oralis mitis on 06/30/2023. There was no growth on the blood drawn on 07/01/2023 and 07/15/2023. Patient remains afebrile with no white cell count elevation. The possibility of a fibrinous strand on the pacemaker lead cannot be excluded. The patient has no evidence of any embolic events. No peripheral signs of endocarditis. (2) COPD exacerbation: Clinically improving. May continue on the current measures. (3) Acute on chronic systolic heart failure: The heart failure seems to be fairly treated at this time. Need to optimize the GDMT (4) Atherosclerotic heart disease of [place] coronary artery with other forms of angina pectoris: Clinical history stable. Atypical chest symptoms. No evidence of myocardial injury. Plan I discussed with the patient in detail about the JES findings. Since he has no fever or bacteremia from the repeated blood cultures of 07/01/2023 and 07/15/2023, it was thought to be appropriate to continue the IV antibiotic and finish the course. Possibility of fibrous strands on the lead is a consideration(implanted in 2010) My clinical suspicion of him having endocarditis is not very strong. Patient's recurrent COPD exacerbation and pneumonia with possible aspiration could be very well the source of infection. So it was decided not to consider any lead extraction at this point. After finishing the antibiotic course, we may do a repeat blood culture and a JES. I discussed in detail with the patient about these issues. Patient seemed to understand this well. All his questions were answered to his satisfaction. Will arrange for close follow-up in the clinic. Discussed with Dr. Rodarte also about my recommendation, who concurred with this plan Attestations 2 Medical Necessity Statement*: Disposition as per the primary Coding Level of Care Code 33421 Diagnoses Streptococcal bacteremia R78.81; B95.5 COPD exacerbation J44.1 Acute on chronic systolic heart failure I50.23 Atherosclerotic heart disease of [place] coronary artery with other forms of angina pectoris I25.118
[2023-07-20] MEDS: cefTRIAXone 2,000 MG in sodium chloride 0.9% (plus) 50 ML 100 MG IV (14:24)
--- NOTE | 2023-07-20 16:19 | PC.NURSE ---
Discharge Note Patient discharged to [home] via [w/c to POV] accompanied by [his friend]. Discharge instructions reviewed with patient and/or customer solutions representative. Mobile pharmacy medications and/or prescriptions provided. Belongings/home medications returned.
== END 2023-07-20 15:35 | disposition home health service (06) | DRG 291 ==
LOC: ER 15:58 → MEDSURG 19:28 → CSU 07-17 16:28
PROVIDERS: Internal Medicine Cardiovascular Disease; Admitting Provider Internal Medicine; Emergency Provider Emergency Medicine; PCP Nurse Practitioner; Visit Provider Student in an Organized Health Care Education/Training Program
DX: I11.0 Hypertensive heart disease with heart failure (principal); I50.23 Acute on chronic systolic (congestive) heart failure; J44.1 Chronic obstructive pulmonary disease with (acute) exacerbation; R78.81 Bacteremia; J96.11 Chronic respiratory failure with hypoxia; J82.83 Eosinophilic asthma; E87.0 Hyperosmolality and hypernatremia; I25.118 Atherosclerotic heart disease of native coronary artery with other forms of angina pectoris; B95.5 Unspecified streptococcus as the cause of diseases classified elsewhere; Z99.81 Dependence on supplemental oxygen; Z95.5 Presence of coronary angioplasty implant and graft; Z95.0 Presence of cardiac pacemaker; Z79.01 Long term (current) use of anticoagulants; Z86.711 Personal history of pulmonary embolism; E11.9 Type 2 diabetes mellitus without complications; E78.5 Hyperlipidemia, unspecified; Z79.82 Long term (current) use of aspirin; Z85.038 Personal history of other malignant neoplasm of large intestine
CPT/HCPCS: 36415; 36416; 36592; 71045; 80048; 80053; 81003; 82962; 83605; 83735; 83880; 84145; 84484; 85025; 85651; 86140; 87040; 87486; 87581; 87633; 93005; 93306; 93312; 93320; 93325; 94640; 94664; 96365; 96372; 96374; 96375; 96376; 99285; J0696; J1642; J1815; J1940; J2704; J2919; J7512; J7613; J7626

== ENCOUNTER 2023-07-16 09:00 | Oncology outpatient (recurring) (ONCR) | payer MEDICARE, MEDICAID, SELFPAY ==
[2023-07-07] MEDS: cefTRIAXone 1,000 MG in sodium chloride 0.9% (plus) 50 ML 100 MG IV (09:38)
[2023-07-07 10:05] VITALS: BP 118/66; PULSE 70; TEMP 36.2
[2023-07-08] MEDS: cefTRIAXone 1,000 MG in sodium chloride 0.9% (plus) 50 ML 100 MG IV (14:10)
[2023-07-08 14:33] VITALS: BP 107/57; PULSE 71; RESP 18; TEMP 37.2; O2SAT 97
[2023-07-08 14:50] VITALS: BP 114/61; PULSE 80; RESP 18; TEMP 36.6; O2SAT 96
[2023-07-09] MEDS: cefTRIAXone 1,000 MG in sodium chloride 0.9% (plus) 50 ML 100 MG IV (08:31)
[2023-07-12 08:40] VITALS: BP 145/78; PULSE 88; RESP 16; TEMP 36.6; O2SAT 93
[2023-07-12] MEDS: cefTRIAXone 1,000 MG in sodium chloride 0.9% (plus) 50 ML 100 MG IV (08:45)
[2023-07-12 09:36] VITALS: BP 113/68; PULSE 85; RESP 18; TEMP 36.1; O2SAT 97
[2023-07-13 08:30] VITALS: BP 130/75; PULSE 79; RESP 18; TEMP 36.1; O2SAT 100
[2023-07-13] MEDS: cefTRIAXone 1,000 MG in sodium chloride 0.9% (plus) 50 ML 100 MG IV (08:35)
[2023-07-13 15:14] VITALS: BP 111/72; PULSE 72; RESP 16; TEMP 36.3; O2SAT 98
[2023-07-14] MEDS: cefTRIAXone 1,000 MG in sodium chloride 0.9% (plus) 50 ML 100 MG IV (08:32)
[2023-07-14 08:37] VITALS: BP 117/68; PULSE 76; RESP 16; O2SAT 99
[2023-07-15 09:05] VITALS: BP 125/64; PULSE 118; RESP 20; TEMP 36.4; O2SAT 92
[2023-07-15] MEDS: cefTRIAXone 1,000 MG in sodium chloride 0.9% (plus) 50 ML 100 MG IV (09:08)
[2023-07-15 09:43] VITALS: BP 114/64; PULSE 79; RESP 18; TEMP 36.5; O2SAT 100
== END 2023-07-20 23:59 | disposition home or self-care (01) ==
PROVIDERS: PCP Nurse Practitioner; Visit Provider Family Medicine
DX: Z53.9 Procedure and treatment not carried out, unspecified reason (principal)
CPT/HCPCS: 96365; J0696

== ENCOUNTER → 2023-08-02 14:46 | Outpatient (BNVA) | payer MEDICARE, MEDICAID, SELFPAY | PROVIDERS: PCP Nurse Practitioner; Visit Provider Nurse Practitioner Family | DX: I11.0 Hypertensive heart disease with heart failure (principal); I50.23 Acute on chronic systolic (congestive) heart failure; Z95.0 Presence of cardiac pacemaker | CPT/HCPCS: 99214 ==

== ENCOUNTER 2023-08-23 14:51 | Inpatient (IN) | payer MEDICARE, MEDICAID, SELFPAY ==
[2023-08-23] VITALS (9 sets, daily range): BP systolic 112–128; BP diastolic 59–77; PULSE 64–82; RESP 15–22; TEMP 36.6–36.8; O2SAT 94–100; BMI 24.0
--- NOTE | 2023-08-23 15:00 | XRR_ITS ---
PROCEDURE INFORMATION: Exam: XR Chest Exam date and time: 08/23/2023 3:07 PM Age: 83 years old Clinical indication: Pain; Angina pectoris; Prior surgery; Surgery date: 6+ months; Surgery type: Lung, pacer; Patient HX: HX of prostate and lung cancer; Additional info: Chest pain TECHNIQUE: Imaging protocol: Radiologic exam of the chest. Views: 1 view. COMPARISON: CR XR chest 1V [id number] 07/15/2023 12:36 PM FINDINGS: Tubes, catheters and devices: Multi lead pacemaker/defibrillator. Lungs: Bibasilar atelectasis or infiltrate with small bilateral pleural effusions. Pleural spaces: See Lungs finding. Heart/Mediastinum: Unremarkable. No cardiomegaly. Bones/joints: Unremarkable. XR/XR chest 1V portable [id number] IMPRESSION: Infiltrates and effusions likely due to CHF.
--- NOTE | 2023-08-23 15:00 | ECG_ITS ---
[facility] Test Date: 2023-08-23 Pat Name: Andrew Sainz Department: Room: Gender: Male Quality Assurance Director: : 1940 Requested By: Cynthia Armenta Order Number: [id number] Babatunde MD: Jose Mendiola M.D. Measurements Intervals [place] Rate: 65 P: 104 VA: 175 QRS: -60 QRSD: 186 T: 117 QT: 476 QTc: 498 Interpretive Statements ELECTRONIC ATRIAL PACEMAKER ELECTRONIC VENTRICULAR PACEMAKER ABNORMAL RHYTHM ECG Compared to ECG 07/15/2023 14:33:45 No significant changes Electronically Signed On 08-24-2023 7:26:52 CDT by Jose Mendiola M.D. [email or web address]
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
[2023-08-23 15:33] LABS: Hematocrit 30.8 % (37-53); Lymphocytes # 1.2 10^3/uL (0.8-4.8); Lymphocytes % 12.2 %; Mean Corpuscular HGB Conc 29.9 g/dL (30-55); Mean Corpuscular Volume 80.4 fl (82-101); Mean Platelet Volume 8.9 fL (7.4-10.4); Monocytes % 10.8 %; Neutrophils # 7.35 10^3/uL (1.8-7.7); Neutrophils % 76.7 %; Nucleated Red Blood Cells % 0 %; Platelet Count 320 10^3/cmm (157-399); Red Blood Count 3.83 10^6/uL (3.85-5.65); Red Cell Distribution Width 16.3 % (12.1-15.1); White Blood Count 9.58 10^3/uL (3.29-11.43)
[2023-08-23 15:54] LABS: Troponin(5th) Baseline 58 ng/L (0-15)
[2023-08-23 16:09] LABS: NT Pro B Type Natriuretic Pept 6062 pg/mL (0-450); Procalcitonin 0.11 ng/mL (0-0.5)
[2023-08-23 16:20] LABS: Alanine Aminotransferase 44 U/L (0-41); Albumin Level 3.2 g/dL (3.5-5.2); Alkaline Phosphatase 95 U/L (40-130); Anion Gap 14.5 (5-19); Aspartate Amino Transferase 32 U/L (0-40); Blood Urea Nitrogen 29 mg/dL (8-23); Calcium 8.6 mg/dL (8.5-10.5); Carbon Dioxide 28 mmol/L (22-29); Chloride 102 mmol/L (98-107); Creatinine Clr Calc Pharmacy 76.9177; Globulin 2.7 g/dL (1.3-4.6); Glucose 121 mg/dL (65-115); Osmolality Calculated 297 mOsm/kg (285-295); Potassium 4.5 mmol/L (3.5-5.1); Sodium 140 mmol/L (136-145); Total Bilirubin 0.4 mg/dL (0.15-1.2); Total Protein 5.9 g/dL (6.6-8.7)
[2023-08-23] MEDS: ipratropium-albuterol 3 mL Neb INHALATION ×3 (16:37→21:06)
[2023-08-23] MEDS: FUROsemide 10 mg/mL SDV 4mL 40 MG IVP ×2 (16:42→21:37)
--- NOTE | 2023-08-23 17:00 | ECG_ITS ---
[facility] Test Date: 2023-08-24 Pat Name: Andrew Sainz Department: Room: 254 Gender: Male Early Childhood Assistant: : 1940 Requested By: Cynthia Armenta Order Number: [id number] Babatunde MD: Jose Mendiola M.D. Measurements Intervals [place] Rate: 76 P: 87 ID: [id number] QRS: -63 QRSD: 196 T: 119 QT: 476 QTc: 537 Interpretive Statements ELECTRONIC VENTRICULAR PACEMAKER Compared to ECG 08/23/2023 21:23:52 No significant changes Electronically Signed On 08-24-2023 7:27:35 CDT by Jose Mendiola M.D. [id number]
[2023-08-23 17:21] LABS: Adenovirus Not Detected (NOT DETECT); Chlamydia Pneumoniae Not Detected (NOT DETECT); Coronavirus 229E,HKU1,NL63,OC4 Not Detected (NOT DETECT); Human Metapneumovirus Not Detected (NOT DETECT); Human Rhinovirus/Enterovirus Not Detected (NOT DETECT); Influenza A Not Detected (NOT DETECT); Influenza A H1 Not Detected (NOT DETECT); Influenza A H1-2009 Not Detected (NOT DETECT); Influenza A H3 Not Detected (NOT DETECT); Influenza B Not Detected (NOT DETECT); Mycoplasma Pneumoniae Not Detected (NOT DETECT); Parainfluenza Virus Type 1 Not Detected (NOT DETECT); Parainfluenza Virus Type 2 Not Detected (NOT DETECT); Parainfluenza Virus Type 3 Not Detected (NOT DETECT); Parainfluenza Virus Type 4 Not Detected (NOT DETECT); Respiratory Syncytial Virus A Not Detected (NOT DETECT); Respiratory Syncytial Virus B Not Detected (NOT DETECT); SARS-COV-2 Not Detected (NOT DETECT)
[2023-08-23] MEDS: dexamethasone 10 mg/mL INJ IM (17:43)
[2023-08-23] MEDS: levofloxacin-dextrose 5 % 500 MG/100 ML PREMIX 100 MG IV (18:07)
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
[2023-08-23 18:31] LABS: Lactic Sepsis W/Reflex 0.8 mmol/L (0.5-2.2)
--- NOTE | 2023-08-23 21:23 | ECG_ITS ---
[facility] Test Date: 2023-08-23 Pat Name: Andrew Sainz Department: Room: 254 Gender: Male Director Of Neurology: : 1940 Requested By: Cynthia Armenta Order Number: [id number] Babatunde MD: Jose Mendiola M.D. Measurements Intervals [place] Rate: 80 P: 66 MA: 200 QRS: -65 QRSD: 191 T: 113 QT: 466 QTc: 540 Interpretive Statements ELECTRONIC VENTRICULAR PACEMAKER Compared to ECG 08/23/2023 15:29:29 Atrial-paced complex(es) or rhythm no longer present Electronically Signed On 08-24-2023 7:30:04 CDT by Jose Mendiola M.D. [id number]
[2023-08-23] MEDS: tamsulosin 0.4 mg Capsule 0.400000000000000022 MG PO (21:36)
[2023-08-23] MEDS: nortriptyline 25 mg Capsule 50 MG PO (21:36)
[2023-08-24] VITALS (16 sets, daily range): BP systolic 95–150; BP diastolic 54–80; PULSE 74–88; RESP 16–18; TEMP 36.3–36.6; O2SAT 94–100
[2023-08-24 00:02] LABS: Adenovirus Not Detected (NOT DETECT); Chlamydia Pneumoniae Not Detected (NOT DETECT); Coronavirus 229E,HKU1,NL63,OC4 Not Detected (NOT DETECT); Human Metapneumovirus Not Detected (NOT DETECT); Human Rhinovirus/Enterovirus Not Detected (NOT DETECT); Influenza A Not Detected (NOT DETECT); Influenza A H1 Not Detected (NOT DETECT); Influenza A H1-2009 Not Detected (NOT DETECT); Influenza A H3 Not Detected (NOT DETECT); Influenza B Not Detected (NOT DETECT); Mycoplasma Pneumoniae Not Detected (NOT DETECT); Parainfluenza Virus Type 1 Not Detected (NOT DETECT); Parainfluenza Virus Type 2 Not Detected (NOT DETECT); Parainfluenza Virus Type 3 Not Detected (NOT DETECT); Parainfluenza Virus Type 4 Not Detected (NOT DETECT); Respiratory Syncytial Virus A Not Detected (NOT DETECT); Respiratory Syncytial Virus B Not Detected (NOT DETECT); SARS-COV-2 Not Detected (NOT DETECT)
[2023-08-24] MEDS: ipratropium-albuterol 3 mL Neb INHALATION ×4 (02:34→20:14)
[2023-08-24] MEDS: roflumilast 500 mcg Tablet PO (05:44)
[2023-08-24] MEDS: aspirin 81 mg EC Tablet PO (05:44)
[2023-08-24] MEDS: montelukast sodium 10 mg Tablet PO (05:44)
[2023-08-24] MEDS: pantoprazole DR 40 mg Tablet PO (05:44)
[2023-08-24] MEDS: metoprolol succinate ER (24 HR) 25 mg Tablet PO (05:44)
[2023-08-24 05:46] LABS: Hematocrit 31.5 % (37-53); Lymphocytes # 0.4 10^3/uL (0.8-4.8); Lymphocytes % 10.2 %; Mean Corpuscular HGB Conc 28.6 g/dL (30-55); Mean Corpuscular Hemoglobin 23.4 pg (27-33); Mean Platelet Volume 9.1 fL (7.4-10.4); Monocytes # 0.2 10^3/uL (0.2-0.9); Monocytes % 5.5 %; Neutrophils # 3.54 10^3/uL (1.8-7.7); Neutrophils % 84.1 %; Nucleated Red Blood Cells % 0 %; Platelet Count 304 10^3/cmm (157-399); Red Blood Count 3.84 10^6/uL (3.85-5.65); Red Cell Distribution Width 16.5 % (12.1-15.1); White Blood Count 4.21 10^3/uL (3.29-11.43)
[2023-08-24 06:09] LABS: Anion Gap 14.3 (5-19); Blood Urea Nitrogen 32 mg/dL (8-23); Calcium 8.8 mg/dL (8.5-10.5); Carbon Dioxide 29 mmol/L (22-29); Chloride 102 mmol/L (98-107); Creatinine Clr Calc Pharmacy 69.4432; Glucose 152 mg/dL (65-115); Magnesium 2.3 mg/dL (1.7-2.3); Osmolality Calculated 302 mOsm/kg (285-295); Phosphorus 3.4 mg/dL (2.5-4.5); Potassium 4.3 mmol/L (3.5-5.1); Sodium 141 mmol/L (136-145)
--- NOTE | 2023-08-24 08:29 | PC.PHAR ---
LAST VISIT HERE-PT HAD ASSIST NISHI SETTING UP MEDICATIONS FOR HIM. TODAY, THEY SAY HE IS NOT THEIR PT. PT DOES SAY HE TOOK MEDICATIONS WEDNESDAY MORNING AND TOOK HIS OZEMPIC SHOT. HE STATED NURSE COMES IN AND SETS UP MEDS AND TAKES BLOOD PRESSURE, ETC. UNABLE TO IDENTIFY WHO IS NEW HOME HEALTH CARE PROVIDER.
[2023-08-24] MEDS: sucralfate 1 gm Tablet PO ×2 (08:40→17:05)
[2023-08-24] MEDS: apixaban 5 mg Tablet PO ×2 (08:40→17:05)
[2023-08-24] MEDS: fluticasone nasal spray 16gm Btl 2 SPRAY INTRANASAL (08:40)
--- NOTE | 2023-08-24 09:40 | PC.CHAP ---
Pastoral Care Encounter/Spiritual Assessment Type of Contact [] Declined finish machine tender visit [] Patient/Family/Request visit [] Outpatient visit [] Follow-up visit [] Physician referral [] Code/Alert [x] Routine visit [] Staff referral [] Actively dying [] Patient sleeping [] Family support [] [] Out of room [] Palliative care [] [] Receiving care in room [] Pre-surgical visit [] Trauma [] Long length of stay [] ICU visit [] Other: Relational/Emotional Strength [x] Patient feels connected with others/family/visitors/staff [] Distress [] Loneliness/isolation [] Abandonment Spirituality of Patient [x] Person of Lynda [] Attends Episcopalian of their Lynda []x Believes in Prayer [] Reads Bible or Judaism materials [] There are Spiritual issues to be addressed Meat Manager Interventions [x] Prayer [] Active listening [] Non-anxious presence [x] Spiritual/emotional support [] Crisis/trauma care [] Spiritual counseling [] Bereavement support [] Provided bereavement packet [] Provided Bible/devotional materials [] Provided toy/stuffed animal, coloring book to patient or family member [] Provided Communion [] Anointing/[place] [] Salvation [x] Completed spiritual assessment [] Other: Impact on Illness or Injury [] Angry [] Fearful [] Anxious [] Often cries [] Exhaustion [] Unable to work [] Unable to attend sikhism [] Unable to walk/stand [] Unable to read [] Unable to drive [] Unable to eat/drink [] Unable to sleep [] Unable to be with family [] Patient intubated [] Other: Summary Time spent with patient 5 min
--- NOTE | 2023-08-24 13:09 | P.PN_ITS ---
Subjective 2 Subjective: No acute overnight events noted, reports he is feeling better as compared to admission but still short of breath and not sure if he is going to be able to walk around Medications: Reviewed: Yes Vitals/I&O/Wt Last Vital Signs Temp 98 F 08/24/23 12:04 Pulse 74 08/24/23 12:04 Resp 18 08/24/23 12:04 BP 126/55 08/24/23 12:04 Pulse Ox 98 08/24/23 12:04 O2 Del Method Nasal Cannula 08/24/23 12:04 O2 Flow Rate 4 08/24/23 08:45 08/23/23 08/24/23 08/24/23 22:59 06:59 14:59 Intake Total 460 / 460 960 / 960 Output Total 300 / 300 1300 / 1600 Balance -300 / -300 -840 / -1140 960 / 960 Weight last 48 hrs Weight 81.012 kg Weight 81.012 kg Weight 80.694 kg Weight 78.018 kg Physical Exam 2 Narrative: She is alert awake oriented x 3 Chest clear to auscultation bilaterally Cardiovascular normal heart sounds no murmurs Abdomen NAD Extremities no edema noted bilateral lower extremities Urinary Catheter Management: Coude: Cath Placed During This Visit: yes Reason for Continuing Indwelling Catheter: Other Urinary Catheter Date of Insertion: 08/23/23 Urinary Catheter Time of Insertion: 22:44 Data 08/24/23 04:44 08/24/23 04:44 Micro: Microbiology 08/23/23 18:02 Blood Culture - Preliminary Blood SPECIMEN COLLECTED 08/23/23 17:57 Blood Culture - Preliminary Blood SPECIMEN COLLECTED A&P Assessment and plan (1) Acute and chronic respiratory failure with hypoxia: (2) Acute exacerbation of CHF (congestive heart failure): (3) COPD with acute exacerbation: (4) Acute on chronic systolic heart failure: Plan 83 year old male with past medical history of colon cancer s/p surgery, hypertension, congestive heart failure, dyslipidemia, COPD, GERD, diabetes, generalized anxiety disorder, on supplemental oxygen 4 L nasal cannula for hypoxic respiratory failure presented with complaint of shortness of breath for 2 to 3 days. He reports shortness of breath has been gradually worsening, present at rest and associated with occasional minimal cough likely secondary to acute on chronic congestive heart failure versus acute COPD exacerbation Continue IV Lasix 40 mg twice daily He is -1.9 L Fluid restriction to 1.5 L DuoNeb every 6 hours. Given his amount of diuresis inconsistent with symptoms, there could be likely a component of COPD exacerbation. Will add IV methylprednisolone 40 mg twice daily for now. Anemia-baseline hemoglobin 10.4 Will check Hemoccult. Cardiac diet DVT prophylaxis, he is already on Eliquis He is full code for now Attestations 2 Medical Necessity Statement*: He needs continued hospitalization for IV diuresis for acute congestive heart failure and management of COPD exacerbation with DuoNebs and IV steroids Time Spent in Patient Care: 20 minutes Coding Level of Care Code Acute Code for [facility] Fwd Diagnoses Acute and chronic respiratory failure with hypoxia J96.21 Acute exacerbation of CHF (congestive heart failure) I50.9 COPD with acute exacerbation J44.1 Acute on chronic systolic heart failure I50.23 Time Spent (min) 20
[2023-08-24] MEDS: methylPREDNISolone sod succ 40 mg/mL INJ IVP (17:49)
[2023-08-24] MEDS: atorvastatin 40 mg Tablet 80 MG PO (20:09)
[2023-08-24] MEDS: nortriptyline 25 mg Capsule 50 MG PO (20:09)
[2023-08-24] MEDS: tamsulosin 0.4 mg Capsule 0.400000000000000022 MG PO (20:09)
[2023-08-25] VITALS (20 sets, daily range): BP systolic 118–157; BP diastolic 56–75; PULSE 78–106; RESP 18–21; TEMP 36.3–36.8; O2SAT 93–99; BMI 25.2
[2023-08-25] MEDS: ipratropium-albuterol 3 mL Neb INHALATION ×7 (00:06→23:54)
[2023-08-25 04:59] LABS: Basophils % 0.1 %; Hematocrit 30.8 % (37-53); Lymphocytes # 0.5 10^3/uL (0.8-4.8); Lymphocytes % 5.5 %; Mean Corpuscular HGB Conc 29.5 g/dL (30-55); Mean Corpuscular Hemoglobin 24.1 pg (27-33); Mean Corpuscular Volume 81.5 fl (82-101); Mean Platelet Volume 9.1 fL (7.4-10.4); Monocytes # 0.6 10^3/uL (0.2-0.9); Monocytes % 6.6 %; Neutrophils # 8.47 10^3/uL (1.8-7.7); Neutrophils % 87.3 %; Nucleated Red Blood Cells % 0 %; Platelet Count 319 10^3/cmm (157-399); Red Blood Count 3.78 10^6/uL (3.85-5.65); Red Cell Distribution Width 16.4 % (12.1-15.1)
[2023-08-25 05:20] LABS: Anion Gap 13.7 (5-19); Blood Urea Nitrogen 32 mg/dL (8-23); Calcium 9.2 mg/dL (8.5-10.5); Carbon Dioxide 30 mmol/L (22-29); Chloride 103 mmol/L (98-107); Creatinine Clr Calc Pharmacy 78.4821; Glucose 181 mg/dL (65-115); Osmolality Calculated 305 mOsm/kg (285-295); Potassium 4.7 mmol/L (3.5-5.1); Sodium 142 mmol/L (136-145)
[2023-08-25] MEDS: aspirin 81 mg EC Tablet PO (05:30)
[2023-08-25] MEDS: roflumilast 500 mcg Tablet PO (05:30)
[2023-08-25] MEDS: pantoprazole DR 40 mg Tablet PO (05:30)
[2023-08-25] MEDS: metoprolol succinate ER (24 HR) 25 mg Tablet PO (05:30)
[2023-08-25] MEDS: montelukast sodium 10 mg Tablet PO (05:30)
[2023-08-25] MEDS: sucralfate 1 gm Tablet PO ×2 (07:53→17:03)
[2023-08-25] MEDS: apixaban 5 mg Tablet PO (07:53)
[2023-08-25] MEDS: fluticasone nasal spray 16gm Btl 2 SPRAY INTRANASAL (07:53)
[2023-08-25] MEDS: methylPREDNISolone sod succ 40 mg/mL INJ IVP ×2 (08:45→18:19)
[2023-08-25] MEDS: FUROsemide 10 mg/mL SDV 4mL 40 MG IVP ×2 (08:45→18:19)
--- NOTE | 2023-08-25 09:35 | PC.SOCIAL ---
IMM Update pg 2 of IMM updated and reviewed w/ patient. Copy provided and copy dated, initialed and placed in chart.
--- NOTE | 2023-08-25 11:22 | P.PN_ITS ---
Subjective 2 Subjective: No acute overnight events noted. Seen at bedside this morning he was upset about his scheduled medications. But was then accepting when explained about the scheduling of medications. He denies any new complaints of shortness of breath or chest discomfort. Medications: Reviewed: Yes Vitals/I&O/Wt Last Vital Signs Temp 97.6 F 08/25/23 08:00 Pulse 85 08/25/23 08:05 Resp 21 H 08/25/23 08:00 BP 157/75 08/25/23 08:00 Pulse Ox 98 08/25/23 08:00 O2 Del Method Nasal Cannula 08/25/23 08:00 O2 Flow Rate 4 08/25/23 08:00 FiO2 4 08/24/23 13:30 08/24/23 08/25/23 08/25/23 22:59 06:59 14:59 Intake Total 920 / 1880 240 / 2120 600 / 600 Output Total 1100 / 1100 400 / 1500 Balance -180 / 780 -160 / 620 600 / 600 Weight last 48 hrs Weight 81.902 kg Weight 81.902 kg Weight 81.012 kg Weight 81.012 kg Weight 80.694 kg Weight 78.018 kg Physical Exam 2 Narrative: He is alert awake oriented x 3 Chest clear to auscultation bilaterally Cardiovascular normal heart sounds no murmurs Abdomen NAD Extremities no edema noted bilateral lower extremities Urinary Catheter Management: Coude: Cath Placed During This Visit: yes Reason for Continuing Indwelling Catheter: Other Urinary Catheter Date of Insertion: 08/23/23 Urinary Catheter Time of Insertion: 22:44 Data 08/25/23 04:23 08/25/23 04:23 Micro: Microbiology 08/25/23 09:57 Occult Blood (FIT) - Final Stool 08/23/23 18:02 Blood Culture - Preliminary Blood NEGATIVE TO DATE 08/23/23 17:57 Blood Culture - Preliminary Blood NEGATIVE TO DATE A&P Assessment and plan (1) Acute on chronic systolic heart failure: (2) Acute and chronic respiratory failure with hypoxia: (3) Acute exacerbation of CHF (congestive heart failure): (4) COPD with acute exacerbation: Plan 83 year old male with past medical history of colon cancer s/p surgery, hypertension, congestive heart failure, dyslipidemia, COPD, GERD, diabetes, generalized anxiety disorder, on supplemental oxygen 4 L nasal cannula for hypoxic respiratory failure presented with complaint of shortness of breath for 2 to 3 days. He reports shortness of breath has been gradually worsening, present at rest and associated with occasional minimal cough likely secondary to acute on chronic congestive heart failure versus acute COPD exacerbation Continue IV Lasix 40 mg twice daily He is -1.3 L Fluid restriction to 1.5 L DuoNeb every 4 hours. Given his amount of diuresis inconsistent with symptoms, there could be likely a component of COPD exacerbation. Continue IV methylprednisolone 40 mg twice daily for now. Anemia-baseline hemoglobin 10.4--->9.1 Hemoccult positive. follow up CBC in am and GI consult. Hold Eliquis for now, was started for PE diagnosed in 04/14. Has h/o Colon cancer Infiltrating adenocarcinoma of sigmoid colon status post laparoscopic sigmoidectomy done on 06/15/2018 final pathology report showed low-grade tumor, tumor size 1.1 x 1.1 cm Invasion into but not through muscularis propria T2 Clear surgical margins 0 out of 10 lymph nodes were removed showed metastatic disease, N0 No lymphovascular invasion seen Pathological stage 1 (T2,N0,M0) with inadequate lymph node sampling e.g. less than 12 lymph nodes last EGD and colonoscopy was in 10/10/19. Cardiac diet DVT prophylaxis with SCD. He is full code for now Attestations 2 Medical Necessity Statement*: He needs continued hospitalization for IV diuresis for acute congestive heart failure and management of COPD exacerbation with DuoNebs and IV steroids. Needs GI consult for possible GI bleed Time Spent in Patient Care: 20 minutes Coding Level of Care Code Acute Code for Chg Fwd Diagnoses Acute on chronic systolic heart failure I50.23 Acute and chronic respiratory failure with hypoxia J96.21 Acute exacerbation of CHF (congestive heart failure) I50.9 COPD with acute exacerbation J44.1 Time Spent (min) 20
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
[2023-08-25] MEDS: magnesium citrate Btl 296 mL PO ×2 (18:50)
[2023-08-25] MEDS: bisacodyl 5 mg Tablet 40 MG PO (18:50)
[2023-08-25] MEDS: nortriptyline 25 mg Capsule 50 MG PO (20:25)
[2023-08-25] MEDS: tamsulosin 0.4 mg Capsule 0.400000000000000022 MG PO (20:25)
[2023-08-25] MEDS: atorvastatin 40 mg Tablet 80 MG PO (20:25)
[2023-08-26] VITALS (27 sets, daily range): BP systolic 102–138; BP diastolic 53–85; PULSE 58–110; RESP 12–26; TEMP 36.3–37.1; O2SAT 92–100
[2023-08-26] MEDS: ipratropium-albuterol 3 mL Neb INHALATION ×4 (03:37→19:55)
--- NOTE | 2023-08-26 04:32 | PC.NURSE ---
Pt finished 2 10oz bottles of magnesium citrate at 2200 08/25/23 to prep for colonoscopy today. Pt has had two bowel movements that were loose and brown. Dr. Imnan notified of the appearance of pt's stool. Dr. Inman stated to talk with Dr. Peck this morning to see if he wants to proceed with colonoscopy.
[2023-08-26] MEDS: roflumilast 500 mcg Tablet PO (05:34)
[2023-08-26] MEDS: metoprolol succinate ER (24 HR) 25 mg Tablet PO (05:35)
[2023-08-26] MEDS: aspirin 81 mg EC Tablet PO (05:35)
[2023-08-26] MEDS: pantoprazole DR 40 mg Tablet PO (05:35)
[2023-08-26] MEDS: montelukast sodium 10 mg Tablet PO (05:35)
[2023-08-26 05:49] LABS: Basophils % 0.1 %; Hematocrit 34.1 % (37-53); Lymphocytes # 0.9 10^3/uL (0.8-4.8); Lymphocytes % 6.9 %; Mean Corpuscular HGB Conc 29.3 g/dL (30-55); Mean Corpuscular Hemoglobin 23.7 pg (27-33); Mean Corpuscular Volume 80.8 fl (82-101); Monocytes # 1.2 10^3/uL (0.2-0.9); Monocytes % 8.9 %; Neutrophils # 11.25 10^3/uL (1.8-7.7); Neutrophils % 83.7 %; Nucleated Red Blood Cells % 0 %; Platelet Count 392 10^3/cmm (157-399); Red Blood Count 4.22 10^6/uL (3.85-5.65); Red Cell Distribution Width 16.4 % (12.1-15.1); White Blood Count 13.45 10^3/uL (3.29-11.43)
[2023-08-26 06:11] LABS: Anion Gap 13.7 (5-19); Blood Urea Nitrogen 37 mg/dL (8-23); Calcium 9.3 mg/dL (8.5-10.5); Carbon Dioxide 35 mmol/L (22-29); Chloride 100 mmol/L (98-107); Creatinine Clr Calc Pharmacy 79.2127; Glucose 173 mg/dL (65-115); Osmolality Calculated 311 mOsm/kg (285-295); Potassium 4.7 mmol/L (3.5-5.1); Sodium 144 mmol/L (136-145)
[2023-08-26] MEDS: FUROsemide 10 mg/mL SDV 4mL 40 MG IVP (06:20)
[2023-08-26] MEDS: magnesium citrate Btl 296 mL PO (07:31)
[2023-08-26] MEDS: methylPREDNISolone sod succ 40 mg/mL INJ IVP (09:04)
[2023-08-26] MEDS: fluticasone nasal spray 16gm Btl 2 SPRAY INTRANASAL (09:05)
[2023-08-26] MEDS: sodium chloride 0.9% 1,000 ML 30 ML IV ×2 (09:06→17:00)
--- NOTE | 2023-08-26 09:14 | PC.NURSE ---
Not given per Dr. Calvo due to colonoscopy. Patient is NPO
--- NOTE | 2023-08-26 10:07 | W.PM.OPSUD ---
Surgery/Procedure H&P Update DATE OF PROCEDURE: August 26, 2023 DATE H&P PERFORMED: 08/25/23 H&P UPDATE INFORMATION: I have reviewed H&P completed within last 30 days, I have examined patient prior to procedure, No changes to prior documentation and H&P is in [facility] on date indicated PLANNED PROCEDURE: Operation Date: 08/26/23 11:40 Proposed Procedures p EGD(Not Applicable) - Bubba Garcia MD s Colonoscopy(Not Applicable) - Bubba Gacria MD
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
--- NOTE | 2023-08-26 13:39 | P.PN_ITS ---
Subjective 2 Subjective: No acute overnight events noted. Medications: Reviewed: Yes Vitals/I&O/Wt Last Vital Signs Temp 98.4 F 08/26/23 11:11 Pulse 82 08/26/23 11:11 Resp 18 08/26/23 11:11 BP 131/69 08/26/23 11:11 Pulse Ox 100 08/26/23 11:11 O2 Del Method Nasal Cannula 08/26/23 11:11 O2 Flow Rate 4 08/26/23 11:11 FiO2 4 08/24/23 13:30 08/25/23 08/26/23 08/26/23 22:59 06:59 14:59 Intake Total 840 / 1800 Output Total 1850 / 2700 650 / 3350 Balance -1010 / -900 -650 / -1550 Weight last 48 hrs Weight 83.716 kg Weight 83.659 kg Weight 81.902 kg Weight 81.902 kg Physical Exam 2 Narrative: He is alert awake oriented x 3 Chest clear to auscultation bilaterally Cardiovascular normal heart sounds no murmurs Abdomen NAD Extremities no edema noted bilateral lower extremities Urinary Catheter Management: Coude: Cath Placed During This Visit: yes Reason for Continuing Indwelling Catheter: Other Urinary Catheter Date of Insertion: 08/23/23 Urinary Catheter Time of Insertion: 22:44 Data 08/26/23 05:18 08/26/23 05:18 Micro: Microbiology 08/25/23 09:57 Occult Blood (FIT) - Final Stool A&P Assessment and plan (1) Acute on chronic systolic heart failure: (2) Acute and chronic respiratory failure with hypoxia: (3) Acute exacerbation of CHF (congestive heart failure): (4) COPD with acute exacerbation: Plan 83 year old male with past medical history of colon cancer s/p surgery, hypertension, congestive heart failure, dyslipidemia, COPD, GERD, diabetes, generalized anxiety disorder, on supplemental oxygen 4 L nasal cannula for hypoxic respiratory failure presented with complaint of shortness of breath for 2 to 3 days. He reports shortness of breath has been gradually worsening, present at rest and associated with occasional minimal cough likely secondary to acute on chronic congestive heart failure versus acute COPD exacerbation Able to speak in full sentences , less short of breath and he is clinically improving continue IV Lasix 40 mg to daily He is -2.8 L Fluid restriction to 1.5 L DuoNeb every 4 hours. Given his amount of diuresis inconsistent with symptoms, there could be likely a component of COPD exacerbation. Continue IV methylprednisolone 40 mg daily for now. Anemia-baseline hemoglobin stable at 10.0 Hemoccult positive. follow up GI consult for EGD and colonoscopy Hold Eliquis for now, was started for PE diagnosed in 04/14. Cardiac diet DVT prophylaxis with SCD. He is full code for now Attestations 2 Medical Necessity Statement*: He needs continued hospitalization for IV diuresis for acute congestive heart failure and management of COPD exacerbation with DuoNebs and IV steroids. Needs work up for possible GI bleed. Anticipating discharge tomorrow morning. Time Spent in Patient Care: 20 minutes Coding Level of Care Code Acute Code for Chg Fwd Diagnoses Acute on chronic systolic heart failure I50.23 Acute and chronic respiratory failure with hypoxia J96.21 Acute exacerbation of CHF (congestive heart failure) I50.9 COPD with acute exacerbation J44.1 Time Spent (min) 20
--- NOTE | 2023-08-26 13:47 | PM.MISC ---
Miscellaneous Note Purpose of Documentation: Update on patient care Note: This is a 83-year-old male with history of colon cancer in the past who is admitted to the hospital with CHF versus observation and was noted to have a positive fit test and therefore we were asked to proceed with endoscopic evaluation for GI bleeding. Upper and lower endoscopy was completed, upper endoscopy and lower endoscopy did not show evidence of active bleeding in the upper endoscopy there was significant amount of retained food in the stomach, despite this we were able to take some biopsies and there was no evidence of retained follow-up. In the lower endoscopy navigation was very complex and the bowel prep was very poor, a polyp was removed at the level of the cecum and there was a large polyp of the level of the hepatic flexure that we will need advanced polypectomy techniques to be removed. The polyp was biopsied and marked. No other evidence of bleeding. -Patient will require repeat colonoscopy by GI for advanced polypectomy and due to poor bowel prep. A referral for GI will be required.
[2023-08-26] MEDS: sucralfate 1 gm Tablet PO (18:01)
[2023-08-26] MEDS: nortriptyline 25 mg Capsule 50 MG PO (21:17)
[2023-08-26] MEDS: tamsulosin 0.4 mg Capsule 0.400000000000000022 MG PO (21:17)
[2023-08-26] MEDS: atorvastatin 40 mg Tablet 80 MG PO (21:17)
[2023-08-27] VITALS (7 sets, daily range): BP systolic 103–117; BP diastolic 62–72; PULSE 68–93; RESP 18–24; TEMP 36.4–36.5; O2SAT 98–100
[2023-08-27] MEDS: ipratropium-albuterol 3 mL Neb INHALATION ×3 (00:31→11:42)
[2023-08-27] MEDS: metoprolol succinate ER (24 HR) 25 mg Tablet PO (05:08)
[2023-08-27] MEDS: montelukast sodium 10 mg Tablet PO (05:08)
[2023-08-27] MEDS: aspirin 81 mg EC Tablet PO (05:08)
[2023-08-27] MEDS: pantoprazole DR 40 mg Tablet PO (05:08)
[2023-08-27] MEDS: roflumilast 500 mcg Tablet PO (05:08)
[2023-08-27 06:31] LABS: Basophils % 0.2 %; Hematocrit 34.6 % (37-53); Lymphocytes # 1.5 10^3/uL (0.8-4.8); Lymphocytes % 9.1 %; Mean Corpuscular HGB Conc 28.3 g/dL (30-55); Mean Corpuscular Hemoglobin 23.6 pg (27-33); Mean Corpuscular Volume 83.4 fl (82-101); Monocytes # 1.9 10^3/uL (0.2-0.9); Monocytes % 11.7 %; Neutrophils # 12.65 10^3/uL (1.8-7.7); Neutrophils % 78.5 %; Nucleated Red Blood Cells % 0 %; Platelet Count 342 10^3/cmm (157-399); Red Blood Count 4.15 10^6/uL (3.85-5.65); Red Cell Distribution Width 16.5 % (12.1-15.1); White Blood Count 16.12 10^3/uL (3.29-11.43)
[2023-08-27 06:57] LABS: Anion Gap 8.9 (5-19); Blood Urea Nitrogen 36 mg/dL (8-23); Calcium 8.7 mg/dL (8.5-10.5); Carbon Dioxide 37 mmol/L (22-29); Chloride 103 mmol/L (98-107); Creatinine Clr Calc Pharmacy 70.3404; Glucose 154 mg/dL (65-115); Osmolality Calculated 311 mOsm/kg (285-295); Potassium 3.9 mmol/L (3.5-5.1); Sodium 145 mmol/L (136-145)
--- NOTE | 2023-08-27 07:38 | XR_ITS ---
WS: [id number] XR chest 1V portable [id number] REASON FOR EXAM: chf FINDINGS: Compared to the examination of 08/23/2023, there is been apparent resolution of the right pleural effus ion. Minimal reticular lung opacities remain in the right lower lung. Pleural effusion and lung consolidation in the left lower hemithorax persist and are relatively uncha nged. The chest is otherwise unchanged compared to the previous examination and no new findings are identif ied. XR/XR chest 1V portable [id number] IMPRESSION: Resolution of right pleural effusion. Stable abnormal left hemithorax.
[2023-08-27] MEDS: sucralfate 1 gm Tablet PO (08:59)
[2023-08-27] MEDS: methylPREDNISolone sod succ 40 mg/mL INJ IVP (09:51)
[2023-08-27] MEDS: FUROsemide 10 mg/mL SDV 4mL 40 MG IVP (09:51)
--- NOTE | 2023-08-27 11:19 | P.PN_ITS ---
Subjective 2 Subjective: Postprocedure day 1 after EGD and colonoscopy for positive FOBT. Patient is doing well no abdominal pain tolerating diet having regular bowel function. Vitals/I&O/Wt Last Vital Signs Temp 97.5 F L 08/27/23 07:26 Pulse 79 08/27/23 07:52 Resp 18 08/27/23 07:52 BP 116/72 08/27/23 07:26 Pulse Ox 99 08/27/23 07:52 O2 Del Method Nasal Cannula 08/27/23 07:52 O2 Flow Rate 4 08/27/23 08:00 FiO2 4 08/24/23 13:30 08/26/23 08/27/23 08/27/23 22:59 06:59 14:59 Intake Total 960 / 2114 240 / 2354 Output Total 550 / 845 225 / 1070 Balance 410 / 1269 15 / 1284 Weight last 48 hrs Weight 182 lb 1 oz Weight 184 lb 2 oz Weight 184 lb 9 oz Weight 184 lb 7 oz Physical Exam 2 GI: OTHER: Abdomen soft nontender nondistended. Urinary Catheter Management: Coude: Cath Placed During This Visit: yes Reason for Continuing Indwelling Catheter: Other Urinary Catheter Date of Insertion: 08/23/23 Urinary Catheter Time of Insertion: 22:44 Data 08/27/23 05:30 08/27/23 05:30 A&P Assessment and plan (1) GI bleed: Plan Patient is doing well after EGD and colonoscopy. I explained to the patient that the colonoscopy was completed but due to significant stool burden he will require repeat colonoscopy in the future. In addition I explained to him that the level of the hepatic flexure I found the polyp that I was only able to biopsy due to the size. He will require to repeat his colonoscopy with a GI provider that can provide advanced polypectomy techniques he is aware of this and is agreeable. He can follow-up with GI as outpatient. I will give him a call once we have the results of the pathology. Attestations 2 Medical Necessity Statement*: Per medical team Coding Level of Care Code Acute Code for Chg Fwd Diagnoses GI bleed K92.2
--- NOTE | 2023-08-27 12:30 | P.DS_ITS ---
Discharge Providers Date of Admission: 08/23/23 18:53 Date of Discharge: August 27, 2023 Attending Provider at Admission: Lupe Calvo MD Attending Provider at Discharge: Lupe Calvo MD Primary Care Provider: SIERRA Andrew Diagnoses at Discharge Discharge Diagnosis (1) GI bleed: Status: Acute Reason for Visit Reason for Visit: difficulty breathing Brief History: 83 year old male with past medical histo ry of colon cancer s/p surgery, hypertension, congestive heart failure, dyslipidemia, COPD, GERD, diabetes, generalized anxiety disorder, on supplemental oxygen 4 L nasal cannula for hypoxic respiratory failure presented with complaint of shortness of breath for 2 to 3 days. He reports shortness of breath has been gradually worsening, present at rest and associated with occasional minimal cough but no fever, cold, chest pain, bowel or urinary complaints. No history of sick contact or recent travel noted. In ER he was found to have a hemoglobin of 9.2 from 10.61-month ago, BNP 6062 and chest x-ray showed bibasilar atelectasis or infiltrate with small bilateral pleural effusions/consistent with congestive heart failure Hospital Course Hospital Course He was admitted for acute on chronic congestive heart failure and acute COPD exacerbation. , Was started on IV Lasix 40 mg twice a da DuoNebs every 4 hours , IV methylprednisolone 40 mg twice daily. He started feeling better, was less short of breath, but then his hemoglobin was low at 9 and he was Hemoccult positive. GI consulted for upper EGD and colonoscopy which showed no acute source of bleeding, he had 2 polyps in the colon 1 resected, and biopsy sent. He needs to follow-up the biopsy result as outpatient in GI clinic. Hemoglobin is stable at 10.0, will resume his Eliquis. He is doing well and is ready to be discharged home with Medrol pack. He needs to follow-up with PCP in 1 week. Physical Exam Narrative: He is alert awake oriented x 3 Chest clear to auscultation bilaterally Cardiovascular normal heart sounds no murmurs Abdomen NAD Extremities no edema noted bilateral lower extremities Urinary Catheter Management: Coude: Cath Placed During This Visit: yes Reason for Continuing Indwelling Catheter: Other Urinary Catheter Date of Insertion: 08/23/23 Urinary Catheter Time of Insertion: 22:44 Discharge Data Studies Completed and Pending Completed Studies During Hospitalization Category Date Time Status XR chest 1V portable [id number] Urgent Exams 08/23/23 15:00 Completed Pending at discharge Category Date Time Status XR chest 1V portable [id number] Urgent Exams 08/27/23 07:38 Taken Blood Culture Stat Lab 08/23/23 18:02 Results Pathology: Surgical [PTH] Routine Pth 08/26/23 13:32 Received Laboratory Results WBC 16.12 10^3/uL (3.29-11.43) H 08/27/23 05:30 RBC 4.15 10^6/uL (3.85-5.65) 08/27/23 05:30 Hgb 9.80 g/dL (11.27-16.99) L 08/27/23 05:30 Hct 34.6 % (37-53) L 08/27/23 05:30 MCV 83.4 fl (82-101) 08/27/23 05:30 MCH 23.6 pg (27-33) L 08/27/23 05:30 MCHC 28.3 g/dL (30-55) L 08/27/23 05:30 RDW 16.5 % (12.1-15.1) H 08/27/23 05:30 Plt Count 342 10^3/cmm (157-399) 08/27/23 05:30 MPV 9.0 fL (7.4-10.4) 08/27/23 05:30 Neut % (Auto) 78.5 % 08/27/23 05:30 Lymph % (Auto) 9.1 % 08/27/23 05:30 Cotton % (Auto) 11.7 % 08/27/23 05:30 Eos % (Auto) 0.0 % 08/27/23 05:30 Baso % (Auto) 0.2 % 08/27/23 05:30 Neut # (Auto) 12.65 10^3/uL (1.8-7.7) H 08/27/23 05:30 Lymph # (Auto) 1.5 10^3/uL (0.8-4.8) 08/27/23 05:30 Cotton # (Auto) 1.9 10^3/uL (0.2-0.9) H 08/27/23 05:30 Eos # (Auto) 0.0 10^3/uL (0.0-0.8) 08/27/23 05:30 Baso # (Auto) 0.0 10^3/uL (0.0-0.1) 08/27/23 05:30 Nucleated RBC % (auto) 0 % 08/27/23 05:30 Nucleated RBCs # 0.0 /100WBC 08/27/23 05:30 Sodium 145 mmol/L (136-145) 08/27/23 05:30 Potassium 3.9 mmol/L (3.5-5.1) 08/27/23 05:30 Chloride 103 mmol/L (98-107) 08/27/23 05:30 Carbon Dioxide 37 mmol/L (22-29) H 08/27/23 05:30 Anion Gap 8.9 (5-19) 08/27/23 05:30 BUN 36 mg/dL (8-23) H 08/27/23 05:30 Creatinine 0.9 mg/dL (0.7-1.2) 08/27/23 05:30 GFR Calculation Not Reportable 08/27/23 05:30 Glucose 154 mg/dL (65-115) H 08/27/23 05:30 Calculated Osmolality 311 mOsm/kg (285-295) H 08/27/23 05:30 Lactic Acid 0.8 mmol/L (0.5-2.2) 08/23/23 17:57 Calcium 8.7 mg/dL (8.5-10.5) 08/27/23 05:30 Phosphorus 3.4 mg/dL (2.5-4.5) 08/24/23 04:44 Magnesium 2.3 mg/dL (1.7-2.3) 08/24/23 04:44 Total Bilirubin 0.4 mg/dL (0.15-1.2) 08/23/23 15:10 AST 32 U/L (0-40) 08/23/23 15:10 ALT 44 U/L (0-41) H 08/23/23 15:10 Alkaline Phosphatase 95 U/L (40-130) 08/23/23 15:10 Troponin T Baseline 58 ng/L (0-15) H 08/23/23 15:10 Troponin T 120 Minute 64.20 ng/L (0-15) H 08/23/23 17:57 Delta Troponin T 6.20 ABS# (0-10) 08/23/23 17:57 Troponin T Hi Sens 6Hr 57.40 ng/L (0-15) H 08/23/23 21:24 Troponin T Hi Sens 6Hr Delta -0.60 ng/L (0-12) L 08/23/23 21:24 NT-Pro-B Natriuret Pep 6062 pg/mL (0-450) H 08/23/23 15:10 Total Protein 5.9 g/dL (6.6-8.7) L 08/23/23 15:10 Albumin 3.2 g/dL (3.5-5.2) L 08/23/23 15:10 Globulin 2.7 g/dL (1.3-4.6) 08/23/23 15:10 Procalcitonin 0.11 ng/mL (0-0.5) 08/23/23 15:10 Adenovirus (PCR) Not detected (NOT DETECT) 08/23/23 22:10 C. pneumoniae DNA (PCR) Not detected (NOT DETECT) 08/23/23 22:10 Coronavirus 229E (PCR) Not detected (NOT DETECT) 08/23/23 22:10 Human Metapneumovir PCR Not detected (NOT DETECT) 08/23/23 22:10 Influenza A (H1) PCR Not detected (NOT DETECT) 08/23/23 22:10 Influ A (H1/09) PCR Not detected (NOT DETECT) 08/23/23 22:10 Influenza A (H3) PCR Not detected (NOT DETECT) 08/23/23 22:10 Influenza Type A (PCR) Not detected (NOT DETECT) 08/23/23 22:10 Influenza Type B (PCR) Not detected (NOT DETECT) 08/23/23 22:10 M. pneumoniae (PCR) Not detected (NOT DETECT) 08/23/23 22:10 Parainfluenza 1 (PCR) Not detected (NOT DETECT) 08/23/23 22:10 Parainfluenza 2 (PCR) Not detected (NOT DETECT) 08/23/23 22:10 Parainfluenza 3 (PCR) Not detected (NOT DETECT) 08/23/23 22:10 Parainfluenza 4 (PCR) Not detected (NOT DETECT) 08/23/23 22:10 RSV Type A (PCR) Not detected (NOT DETECT) 08/23/23 22:10 RSV Type B (PCR) Not detected (NOT DETECT) 08/23/23 22:10 Entero/Rhino (PCR) Not detected (NOT DETECT) 08/23/23 22:10 SARS-CoV-2 (PCR) Not detected (NOT DETECT) 08/23/23 22:10 Vitals Last Vital Signs Temp 97.5 F L 08/27/23 07:26 Pulse 84 08/27/23 11:43 Resp 20 H 08/27/23 11:43 BP 116/72 08/27/23 07:26 Pulse Ox 98 08/27/23 11:43 O2 Del Method Nasal Cannula 08/27/23 11:43 O2 Flow Rate 4 08/27/23 11:43 FiO2 4 08/24/23 13:30 Discharge Plan Discharge Patient Disposition: Home Health Service Condition: Stable Prescriptions: New Medrol (Ricki) 4 mg tablets,dose pack See Rx Instructions .ROUTE .COMPLEX Qty: 21 0RF Rx Instructions: orally per package directions Continued (DME) Easy Touch Safety Lancets 32 gauge misc See Rx Instructions .Route Qty: 100 2RF Rx Instructions: use 3 times day as needed (DME) pen needle, diabetic [BD Ultra-Fine Domi Pen Needle] 32 gauge x 5/32 needle See Rx Instructions .ROUTE .MEDSUPPLY Qty: 100 5RF Rx Instructions: 3 times day as needed (DME) Easy Touch Ambrocio Link Test Strip Strip See Rx Instructions .Route Qty: 50 5RF Rx Instructions: As directed Fasenra Pen 30 mg/mL auto-injector 30 mg SUBCUT .8 weeks Qty: 1 6RF Hold Instructions: Resume on 07/19/23. Rx Instructions: maintenance dose Eliquis 5 mg tablet 5 mg PO BID Qty: 60 2RF albuterol sulfate [ProAir HFA] 90 mcg/actuation HFA aerosol inhaler 2 puff INHALATION Q4H PRN (Reason: shortness of breath or wheezing) Qty: 1 2RF Adult Low Dose Aspirin 81 mg tablet,delayed release (DR/EC) 81 mg PO QAM Qty: 30 5RF Breztri Aerosphere 160-9-4.8 mcg/actuation HFA aerosol inhaler 2 inh inhalation BID Qty: 10.7 2RF fluticasone propionate 50 mcg/actuation spray,suspension 2 spray INTRANASAL DAILY Qty: 9.9 2RF furosemide 40 mg tablet 40 mg PO BID Qty: 60 2RF ipratropium-albuterol 0.5 mg-3 mg(2.5 mg base)/3 mL solution for nebulization 3 ml inhalation Q4H PRN (Reason: shortness of breath or wheezing) Qty: 300 2RF levocetirizine 5 mg tablet 5 mg PO DAILY Qty: 90 0RF metoprolol succinate 25 mg tablet extended release 24 hr 25 mg PO QAM Qty: 90 0RF Rx Instructions: note dose decrease if heart less 60 use 1/2 tablet montelukast 10 mg tablet 10 mg PO QAM Qty: 90 0RF nortriptyline 50 mg capsule 50 mg PO BEDTIME Qty: 30 2RF omeprazole 40 mg capsule,delayed release(DR/EC) 40 mg PO QAM Qty: 30 2RF Daliresp 500 mcg tablet 500 mcg PO QAM Qty: 30 2RF rosuvastatin 40 mg tablet 40 mg PO DAILY 30 Days Qty: 30 2RF semaglutide 0.25 mg or 0.5 mg (2 mg/3 mL) pen injector 0.25 mg SUBCUT Q7D Qty: 3 2RF Rx Instructions: on wednesday sucralfate [Carafate] 1 gram tablet 1 g PO BID Qty: 60 2RF Flomax 0.4 mg capsule 0.4 mg PO BEDTIME Qty: 30 2RF ascorbic acid (vitamin C) [Vitamin C] 500 mg Tablet 500 mg PO DAILY PRN (Reason: unknown) cinnamon bark [Cinnamon] 500 mg Capsule 500 mg PO DAILY Probiotic Blend 2 billion cell-50 mg Capsule 1 cap PO BID Rx Instructions: give with meal/snack omega-3 fatty acids 1,000 mg Capsule 1,000 mg PO BID Discontinued ceftriaxone 2 gram recon soln 2 g IV DAILY Qty: 26 0RF Discharge Orders: Discharge Order (Routine); Ordered 08/27/23 Ordered By: Lupe Calvo Other Ambulatory Orders: DME: Rashel (Order) Location: None Selected Ordered By: Lupe Calvo Referrals: [facility] [Other] Jordy Singer, GARNISHMENT SPECIALIST-C [Primary Care Provider] - Discharge Diet: Cardiac Discharge Activity: Increase activity as tolerated Patient Instructions: GI Discharge Instructions, Opioid Safety Discharge Attestations Time Spent in Discharge Care*: less than 30 min Status at Discharge: Cognitive status at discharge: cognitively intact , Behavioral status at discharge: cooperative , Quality Metrics Clinical Quality Measures [ No reported AMI, CVA or VTE this stay] Coding Level of Care Code Acute Code for Chg Fwd Diagnoses GI bleed K92.2 Time Spent (min) 20
--- NOTE | 2023-08-27 12:39 | PC.SOCIAL ---
IMM Update pg 2 of IMM updated and reviewed w/ patient. Copy provided and copy dated, initialed and placed in chart.
== END 2023-08-27 15:21 | disposition home health service (06) | DRG 291 ==
LOC: ER 17:36 → MEDSURG 18:53
PROVIDERS: Physician Assistant; Surgery; Admitting Provider Internal Medicine; Emergency Provider Family Medicine; PCP Nurse Practitioner; Visit Provider Internal Medicine
PROC: 0DJ08ZZ Inspection of Upper Intestinal Tract, Via Natural or Artificial Opening Endoscopic (ICD-10-PCS; CPT 43235; principal; 2023-08-26 11:40)
PROC: 0DJD8ZZ Inspection of Lower Intestinal Tract, Via Natural or Artificial Opening Endoscopic (ICD-10-PCS; CPT 45378; 2023-08-26 11:40)
DX: I11.0 Hypertensive heart disease with heart failure (principal); I50.23 Acute on chronic systolic (congestive) heart failure; J96.21 Acute and chronic respiratory failure with hypoxia; J44.1 Chronic obstructive pulmonary disease with (acute) exacerbation; K92.2 Gastrointestinal hemorrhage, unspecified; D64.9 Anemia, unspecified; I25.10 Atherosclerotic heart disease of native coronary artery without angina pectoris; Z95.5 Presence of coronary angioplasty implant and graft; Z95.0 Presence of cardiac pacemaker; Z79.01 Long term (current) use of anticoagulants; Z79.82 Long term (current) use of aspirin; Z79.85 Long-term (current) use of injectable non-insulin antidiabetic drugs; Z86.711 Personal history of pulmonary embolism; Z85.038 Personal history of other malignant neoplasm of large intestine; K21.9 Gastro-esophageal reflux disease without esophagitis; E11.9 Type 2 diabetes mellitus without complications; F41.1 Generalized anxiety disorder; Z99.81 Dependence on supplemental oxygen
CPT/HCPCS: 36415; 43239; 45380; 45385; 51702; 71045; 80048; 80053; 82274; 83605; 83735; 83880; 84100; 84145; 84484; 85025; 87040; 87486; 87581; 87633; 88305; 93005; 94640; 94664; 96372; 96374; 96376; 97110; 97116; 97162; 97165; 97530; 97535; 99285; J0330; J1100; J1940; J1956; J2371; J2405; J2704; J2919; J7030

== ENCOUNTER → 2023-09-14 10:35 | Outpatient (BNVA) | payer MEDICARE, MEDICAID, SELFPAY | PROVIDERS: PCP Nurse Practitioner; Visit Provider Nurse Practitioner | DX: I10 Essential (primary) hypertension (principal); J44.9 Chronic obstructive pulmonary disease, unspecified | CPT/HCPCS: 71046; 80053; 83550; 83735; 85025 ==

== ENCOUNTER 2023-09-23 12:24 | Inpatient (IN) | payer MEDICARE, MEDICAID, SELFPAY ==
[2023-09-23] VITALS (11 sets, daily range): BP systolic 70–121; BP diastolic 46–82; PULSE 58–81; RESP 17–18; TEMP 36.4–36.9; O2SAT 90–98; BMI 21.0
--- NOTE | 2023-09-23 12:44 | XRR_ITS ---
PROCEDURE INFORMATION: Exam: XR Chest Exam date and time: 09/23/2023 1:23 PM Age: 83 years old Clinical indication: Dyspnea; Additional info: SOB TECHNIQUE: Imaging protocol: Radiologic exam of the chest. Views: 1 view. COMPARISON: CR XR chest 2V* [id number] 09/14/2023 10:34 AM FINDINGS: Tubes, catheters and devices: Surgical clips project over the left ventricle. Dual chamber pacemaker/cardioverter in appropriate position with lead tips in the right atrium and right ventricle. Airway: The airways are patent. Lungs: Lung hyperlucency, favoring emphysema. 9 mm nodular structure right lung base, most compatible with a nipple shadow. No consolidations. Pleural spaces: No pleural effusions or pneumothorax. Heart/Mediastinum: The heart demonstrates mild diffuse enlargement. Vasculature: Calcified aortic knob. Bones/joints: No acute skeletal abnormality or aggressive osseous lesion. XR/XR chest 1V portable [id number] IMPRESSION: 1. No acute thoracic pathology. 2. 9 mm nodular structure right lung base, most compatible with a nipple shadow. Consider correlation with lateral views and nipple markers for confirmation.
--- NOTE | 2023-09-23 12:44 | XRR_ITS ---
PROCEDURE INFORMATION: Exam: XR Right Hip Exam date and time: 09/23/2023 1:23 PM Age: 83 years old Clinical indication: Injury or trauma; Fall; Other: Pain; Additional info: Trauma, RT hip pain post fall TECHNIQUE: Imaging protocol: Radiologic exam of the right hip. Views: 1 view hip with pelvis when performed. COMPARISON: CT abdomen pelvis w con* [id number] 09/23/2023 1:20 PM FINDINGS: Bones/joints: Mild osteoarthritis of the right hip joint. No acute fracture, dislocation, or aggressive osseous lesion. Soft tissues: No acute soft tissue findings. XR/XR hip RT 2-3V wo/w pel* [id number] IMPRESSION: No acute skeletal pathology.
--- NOTE | 2023-09-23 12:44 | CTR_ITS ---
PROCEDURE INFORMATION: Exam: CT Head Without Contrast Exam date and time: 09/23/2023 1:15 PM Age: 83 years old Clinical indication: Injury or trauma; Fall; Blunt trauma (contusions or hematomas) TECHNIQUE: Imaging protocol: Computed tomography of the head without contrast. Radiation optimization: All CT scans at this facility use at least one of these dose optimization techniques: automated exposure control; mA and/or kV adjustment per patient size (includes targeted exams where dose is matched to clinical indication); or iterative reconstruction. COMPARISON: CT head wo con* [id number] 02/26/2019 5:45 PM RADIATION DOSE METRICS: Total DLP (mGy-cm): 1136.78 FINDINGS: Brain: Normal. No hemorrhage. Unremarkable white matter. No mass effect or acute infarct. Cerebral ventricles: No ventriculomegaly. No midline shift. Paranasal sinuses: Visualized sinuses are unremarkable. No fluid levels. Mastoid air cells: Visualized mastoid air cells are well aerated. Bones: Unremarkable. No acute fracture. Soft tissues: Unremarkable. CT/CT head wo con* [id number] IMPRESSION: No acute intracranial abnormality.
--- NOTE | 2023-09-23 12:44 | CTR_ITS ---
PROCEDURE INFORMATION: Exam: CT Abdomen And Pelvis With Contrast Exam date and time: 09/23/2023 1:20 PM Age: 83 years old Clinical indication: Abdominal pain; Localized; Left lower quadrant (llq); Additional info: Llq abd pain with nausea TECHNIQUE: Imaging protocol: Computed tomography of the abdomen and pelvis with contrast. Radiation optimization: All CT scans at this facility use at least one of these dose optimization techniques: automated exposure control; mA and/or kV adjustment per patient size (includes targeted exams where dose is matched to clinical indication); or iterative reconstruction. Contrast material: OMNI 350; Contrast volume: 100 ml; Contrast route: INTRAVENOUS (IV); COMPARISON: CT chest abdpel w/*[id number] 09/25/2019 10:45 AM RADIATION DOSE METRICS: Total DLP (mGy-cm): 440.833 FINDINGS: Lungs: Scarring/atelectasis at the lung bases without acute findings. Diaphragm: A moderate hiatal hernia is present. Liver: Liver is enlarged measuring 17 cm. Diffuse decrease in hepatic parenchymal density, consistent with fatty infiltration. Slightly nodular liver contour, concerning for early hepatocellular disease. Correlation with pertinent labs is recommended. Stable scattered liver cysts, largest 1.2 cm. The liver is otherwise unremarkable. Gallbladder and biliary ducts: Multiple calcified gallstones are present. The gallbladder is otherwise unremarkable. There is no evidence of biliary ductal dilation. Pancreas: The pancreas is normal. Spleen: Hypodense splenic lesions, too small to characterize. Consider follow-up ultrasound in a nonemergent setting. The spleen is otherwise unremarkable. Adrenal glands: 1.3 cm left adrenal nodule and 1.4 cm right adrenal nodule. These are stable from prior.No follow-up is necessary. (Reference: [facility]) Kidneys and ureters: There are multiple nonobstructive right renal collecting system stones, as large as 5 mm. Subcentimeter right renal hypodense lesions are too small to characterize but most probably benign representing cysts. Consider correlation with nonemergent ultrasound. The right kidney is otherwise unremarkable. There are multiple simple left renal cysts, as large as 2 cm. No follow-up is recommended. Subcentimeter left renal hypodense lesions are too small to characterize but most probably benign representing cysts. Consider correlation with nonemergent ultrasound. There are multiple nonobstructive left renal collecting system stones, as large as 5 mm. The left kidney is otherwise unremarkable. The ureters are normal. Stomach and bowel: Diffuse colonic diverticulosis. There is excessive colonic stool content. No bowel obstruction or significant bowel wall thickening. Stomach is decompressed and difficult to evaluate. The duodenum is unremarkable. Appendix: A normal appendix is identified. Intraperitoneal space: No free fluid, fluid collections, or pneumoperitoneum. Vasculature: The arterial vasculature demonstrates diffuse moderate atherosclerotic calcification. Portal venous system is patent. No aortic aneurysms. Lymph nodes: No concerning adenopathy. Urinary bladder: Mild urinary bladder wall thickening with multiple trabeculations and at least 4 bladder diverticula, the largest in the right anterolateral wall measuring 3.4 cm. This is likely the sequela of chronic urinary retention. Reproductive: Progressive and severe enlargement of the prostate gland with a nodular configuration compared with prior. The prostate gland indents on the inferior wall of the urinary bladder. Correlation with PSA levels is recommended. Bones/joints: Severe multilevel degenerative changes of the spine, as manifested by multilevel anterior osteophytes and multilevel decrease in intervertebral disc space. 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 No acute skeletal abnormality or aggressive osseous lesion. Soft tissues: There is a nonobstructing right inguinal hernia. There is a nonobstructing left inguinal hernia. No acute body wall soft tissue findings. CT/CT abdomen pelvis w con* [id number] IMPRESSION: 1. No acute abdominopelvic pathology. 2. Incidental findings as above. COMMENTS: Consistent with the [employer]'s Incidental Findings Committee white paper (J Am Kellen Radiol 2018): Any incidental renal lesion less than 1 cm or classified as too small to characterize, or any incidental cystic renal lesion characterized as simple-appearing, is likely benign. No follow-up imaging is recommended for these lesions per consensus recommendations based on imaging criteria. REFERENCES: Noé FENG, et al. Management of Incidental Adrenal Masses: A White Paper of the ACR Incidental Findings Committee. J Am Kellen Radiol. 2017;14(8):8663-7884.
--- NOTE | 2023-09-23 12:46 | ECG_ITS ---
[facility] Test Date: 2023-09-23 Pat Name: Andrew Sainz Department: Room: Gender: Male Online Communications Manager: : 1940 Requested By: Juve Bruno Order Number: [id number] Babatunde MD: Jose Mendiola M.D. Measurements Intervals [place] Rate: 63 P: 0 MD: 0 QRS: 43 QRSD: 200 T: 112 QT: 493 QTc: 509 Interpretive Statements ELECTRONIC VENTRICULAR PACEMAKER INTRAVENTRICULAR CONDUCTION DELAY [130+ ms QRS DURATION] LEFT VENTRICULAR HYPERTROPHY AND ST-T CHANGE [VOLTAGE CRITERIA PLUS ST/T ABNORMALITY] Compared to ECG 08/24/2023 02:54:04 Intraventricular conduction delay now present Left ventricular hypertrophy now present ST (T wave) deviation now present Electronically Signed On 09-23-2023 20:19:47 CDT by Jose Mendiola M.D. [id number]
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
[2023-09-23 13:08] LABS: Basophils % 0.1 %; Hematocrit 39.1 % (37-53); Lymphocytes # 1.1 10^3/uL (0.8-4.8); Lymphocytes % 9.2 %; Mean Corpuscular HGB Conc 29.7 g/dL (30-55); Mean Corpuscular Hemoglobin 22.1 pg (27-33); Mean Corpuscular Volume 74.5 fl (82-101); Mean Platelet Volume 8.5 fL (7.4-10.4); Monocytes # 1.2 10^3/uL (0.2-0.9); Monocytes % 10.1 %; Neutrophils # 9.37 10^3/uL (1.8-7.7); Neutrophils % 80.3 %; Nucleated Red Blood Cells % 0 %; Platelet Count 388 10^3/cmm (157-399); Red Blood Count 5.25 10^6/uL (3.85-5.65); Red Cell Distribution Width 16.6 % (12.1-15.1); White Blood Count 11.67 10^3/uL (3.29-11.43)
[2023-09-23 13:27] LABS: Alanine Aminotransferase 26 U/L (0-41); Albumin Level 3.6 g/dL (3.5-5.2); Alkaline Phosphatase 100 U/L (40-130); Anion Gap 14.9 (5-19); Aspartate Amino Transferase 39 U/L (0-40); Blood Urea Nitrogen 67 mg/dL (8-23); Calcium 12.4 mg/dL (8.5-10.5); Carbon Dioxide 39 mmol/L (22-29); Chloride 83 mmol/L (98-107); Creatinine Clr Calc Pharmacy 41.7605; Globulin 3.6 g/dL (1.3-4.6); Glucose 195 mg/dL (65-115); Magnesium 2.5 mg/dL (1.7-2.3); Osmolality Calculated 303 mOsm/kg (285-295); Sodium 134 mmol/L (136-145); Total Bilirubin 0.6 mg/dL (0.15-1.2); Total Protein 7.2 g/dL (6.6-8.7)
[2023-09-23] MEDS: iohexol 350 mg/mL 500 mL Btl (per mL) IV (13:32)
[2023-09-23 13:34] LABS: Potassium 2.9 mmol/L (3.5-5.1); Troponin(5th) Baseline 117 ng/L (0-15)
[2023-09-23 13:41] LABS: Specific Gravity, Urine 1.015 (1.005-1.030); Urine Appearance Clear (CLEAR); Urine Color Yellow (Yellow); pH Urine 5 (5-7)
[2023-09-23 13:42] LABS: Add Urine Microscopic? YES; Bilirubin Urine Neg (Negative); Blood Urine 3+ (Negative); Glucose Urine UA Norm (Normal); Ketones Urine Negative (Negative); Leukocyte Esterase Urine Negative (Negative); Nitrate Urine Negative (Negative); Protein Urine Neg (Negative); Urobilinogen Urine Neg (Negative)
[2023-09-23 13:43] LABS: Bacteria Urine TRACE /hpf; Mucus Urine TRACE /hpf; RBC Urine 15-25 /hpf (0-2); Squamous Epithelial Cell Urine 0-4 /hpf (0-5)
[2023-09-23 13:44] LABS: Add Urine Culture? Yes
[2023-09-23] MEDS: sodium chloride 0.9% 1,000 ML 999 ML IV (14:15)
[2023-09-23] MEDS: potassium chloride premix 100 ML 25 MEQ IV (14:15)
--- NOTE | 2023-09-23 14:46 | ECG_ITS ---
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 Measurements Intervals [place] Rate: 60 P: 0 NV: 0 QRS: -70 QRSD: 204 T: 109 QT: 518 QTc: 518 Interpretive Statements ELECTRONIC VENTRICULAR PACEMAKER Compared to ECG 09/23/2023 14:46:46 No significant changes Electronically Signed On 09-23-2023 20:22:27 CDT by Jose Mendiola M.D. [id number]
[2023-09-23 14:48] LABS: Creatine Phosphokinase 136 U/L (39-308)
[2023-09-23 15:23] LABS: Troponin 5 2HR 107.5 ng/L (0-15); Troponin 5 2HR Delta -9.5 ABS# (0-10)
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
--- NOTE | 2023-09-23 16:36 | USCV_ITS ---
Andrew Sainz Age: 83 Gender: M : 1940 Exam Date: 09/23/2023 16:51 Ordering Phys: Hernando Ko MD Technologist: CT [place]am [place] [facility] [place]: ef BP: 120 / 70 HR: Rhythm: Sinus Technical Quality: Adequate MEASUREMENTS (Male / Female) Normal Values 2D ECHO LVOT Diameter 2.4 cm LV Ejection Fraction MOD 2C 18.0 % LV Ejection Fraction 2C AL 18.6 % LA Diameter 4.6 cm RA Systolic Volume 4C AL 58.5 ml RA Systolic Volume 4C MOD 57.4 ml LA Sys Volume AL 80.5 cm cubed LA Sys Volume Index AL 43.6 cm cubed/m squared Aorta at Sinotubular Diameter 3.0 cm IVC Diameter 1.5 cm M-MODE LA Ao Ratio MM 2.0 AV Cusp Separation MM 2.2 cm FINDINGS Left Ventricle Right Ventricle Right Atrium Left Atrium Mitral Valve Aortic Valve Tricuspid Valve Pulmonic Valve Pericardium Aorta IVC CONCLUSIONS Limited echocardiogram performed to assess LV systolic function LV systolic function is severely reduced with EF of 15-20%. Severe global hypokinesis. Compared to prior echocardiogram from 06/2023, LV systolic function has decreased further. Jose Mendiola MD (Electronically Signed) Final Date: 23 September 2023 20:30 S
--- NOTE | 2023-09-23 18:46 | ECG_ITS ---
[facility] Test Date: 2023-09-23 Pat Name: Andrew Sainz Department: Room: Gender: Male Nurse Supervisor: : 1940 Requested By: Juve Bruno Order Number: [id number] Babatunde MD: Jose Mendiola M.D. Measurements Intervals [place] Rate: 62 P: 0 VT: 0 QRS: -78 QRSD: 214 T: 94 QT: 523 QTc: 532 Interpretive Statements ELECTRONIC VENTRICULAR PACEMAKER Compared to ECG 09/23/2023 12:48:09 Intraventricular conduction delay no longer present Left ventricular hypertrophy no longer present ST (T wave) deviation no longer present Electronically Signed On 09-23-2023 20:23:05 CDT by Jose Mendiola M.D. [id number]
[2023-09-23 19:13] LABS: Adenovirus Not Detected (NOT DETECT); Chlamydia Pneumoniae Not Detected (NOT DETECT); Coronavirus 229E,HKU1,NL63,OC4 Not Detected (NOT DETECT); Human Metapneumovirus Not Detected (NOT DETECT); Human Rhinovirus/Enterovirus Not Detected (NOT DETECT); Influenza A Not Detected (NOT DETECT); Influenza A H1 Not Detected (NOT DETECT); Influenza A H1-2009 Not Detected (NOT DETECT); Influenza A H3 Not Detected (NOT DETECT); Influenza B Not Detected (NOT DETECT); Mycoplasma Pneumoniae Not Detected (NOT DETECT); Parainfluenza Virus Type 1 Not Detected (NOT DETECT); Parainfluenza Virus Type 2 Not Detected (NOT DETECT); Parainfluenza Virus Type 3 Not Detected (NOT DETECT); Parainfluenza Virus Type 4 Not Detected (NOT DETECT); Respiratory Syncytial Virus A Not Detected (NOT DETECT); Respiratory Syncytial Virus B Not Detected (NOT DETECT); SARS-COV-2 Not Detected (NOT DETECT)
[2023-09-23 19:28] LABS: Creatine Phosphokinase 111 U/L (39-308)
[2023-09-23 19:30] LABS: Troponin 5 6HR Delta -11.3 ng/L (0-12)
[2023-09-23 19:32] LABS: Troponin 5 6HR 105.7 ng/L (0-15)
[2023-09-23] MEDS: apixaban 5 mg Tablet PO (19:37)
[2023-09-23] MEDS: FUROsemide 40 mg Tablet PO (19:37)
[2023-09-23] MEDS: predniSONE 5 mg Tablet PO (19:38)
--- NOTE | 2023-09-23 19:51 | PC.NURSE ---
Spoke with and made her aware of 6 hr trop 107.5 delta of - 11.6. The patient does not have orders for telemetry, gave order for telemetry.
[2023-09-23] MEDS: ipratropium-albuterol 3 mL Neb INHALATION (20:12)
[2023-09-23] MEDS: nortriptyline 25 mg Capsule 50 MG PO (21:13)
[2023-09-23] MEDS: tamsulosin 0.4 mg Capsule PO (21:13)
--- NOTE | 2023-09-23 22:20 | PC.NURSE ---
Nurse attempted to obtain orthostatic vitals Laying 120/58 and sitting 70/49, and was unable to get standing as patient became symptomatic and felt like he was going to pass out. Patient sat on the side of the bed to recover and obtained sitting 111/60 and then had patient stand with BP 90/47. The nurse educated patient that he needs to ring for assistance to go to the commode because with His BP dropping he is more at risk for falls. Patient verbalized understanding. Bed alarm reset for safety.
[2023-09-24] VITALS (15 sets, daily range): BP systolic 103–130; BP diastolic 51–62; PULSE 59–69; RESP 17–18; TEMP 36.4–36.7; O2SAT 95–100
[2023-09-24] MEDS: ipratropium-albuterol 3 mL Neb INHALATION ×4 (02:13→20:03)
[2023-09-24] MEDS: finasteride 5 mg Tablet PO (05:05)
[2023-09-24] MEDS: roflumilast 500 mcg Tablet PO (05:05)
[2023-09-24] MEDS: aspirin 81 mg EC Tablet PO (05:05)
[2023-09-24] MEDS: montelukast sodium 10 mg Tablet PO (05:06)
[2023-09-24] MEDS: metoprolol succinate ER (24 HR) 25 mg Tablet PO (05:06)
[2023-09-24 05:48] LABS: Basophils % 0.1 %; Hematocrit 34.9 % (37-53); Lymphocytes # 1.3 10^3/uL (0.8-4.8); Lymphocytes % 13.7 %; Mean Corpuscular HGB Conc 28.9 g/dL (30-55); Mean Corpuscular Hemoglobin 22.1 pg (27-33); Mean Corpuscular Volume 76.4 fl (82-101); Monocytes # 1.4 10^3/uL (0.2-0.9); Monocytes % 14.8 %; Neutrophils # 6.66 10^3/uL (1.8-7.7); Neutrophils % 71.2 %; Nucleated Red Blood Cells % 0 %; Platelet Count 337 10^3/cmm (157-399); Red Blood Count 4.57 10^6/uL (3.85-5.65); Red Cell Distribution Width 16.6 % (12.1-15.1); White Blood Count 9.35 10^3/uL (3.29-11.43)
[2023-09-24] MEDS: sucralfate 1 gm Tablet PO ×2 (06:13→17:15)
[2023-09-24 06:17] LABS: Anion Gap 10.5 (5-19); Blood Urea Nitrogen 64 mg/dL (8-23); Calcium 11.2 mg/dL (8.5-10.5); Chloride 90 mmol/L (98-107); Creatinine Clr Calc Pharmacy 46.0971; Glucose 150 mg/dL (65-115); Osmolality Calculated 309 mOsm/kg (285-295); Potassium 3.5 mmol/L (3.5-5.1); Sodium 139 mmol/L (136-145)
[2023-09-24 06:24] LABS: Carbon Dioxide 42 mmol/L (22-29)
[2023-09-24] MEDS: predniSONE 5 mg Tablet PO ×2 (08:41→17:15)
[2023-09-24] MEDS: lactobacillus 1 Tablet 1 TAB PO ×2 (08:41→17:15)
[2023-09-24] MEDS: ferrous sulfate EC 325 mg Tablet PO (08:41)
[2023-09-24] MEDS: apixaban 5 mg Tablet PO ×2 (08:41→17:15)
[2023-09-24] MEDS: FUROsemide 40 mg Tablet PO ×2 (08:41→17:15)
[2023-09-24] MEDS: fluticasone nasal spray 16gm Btl 2 SPRAY INTRANASAL (08:41)
[2023-09-24] MEDS: pantoprazole DR 40 mg Tablet PO (08:41)
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
--- NOTE | 2023-09-24 19:48 | P.PN_ITS ---
Subjective 2 Subjective: He has been feeling weak/fatigable. Vitals/I&O/Wt Last Vital Signs Temp 97.7 F 09/24/23 19:46 Pulse 59 L 09/24/23 19:46 Resp 18 09/24/23 19:46 BP 116/55 09/24/23 19:46 Pulse Ox 98 09/24/23 19:46 O2 Del Method Nasal Cannula 09/24/23 19:46 O2 Flow Rate 3.5 09/24/23 15:29 09/24/23 09/24/23 09/24/23 06:59 14:59 22:59 Intake Total 300 / 1800 948 / 948 358 / 1306 Balance 300 / 1200 948 / 948 358 / 1306 Weight last 48 hrs Weight 73.028 kg Weight 73.028 kg Weight 68.492 kg Weight 68.492 kg Physical Exam 2 Const: COMMON NORMALS: patient oriented x3 and alert GENERAL APPEARANCE: c ooperative ORIENTATION/CONSCIOUSNESS: Yes awake HENMT: COMMON NORMALS: oropharynx normal OTHER: Edentulous. Neck/C-Spine: COMMON NORMALS: no JVD Chest: OTHER: L chest PPM Resp: COMMON NORMALS: normal respiratory effort and clear to auscultation bilaterally AUSCULTATION: clear to auscultation bilaterally Cardio: COMMON NORMALS: no JVD, regular rhythm, S1 normal heart sound present, S2 normal heart sound present and No murmurs present (Cardio) RHYTHM: regular rhythm HEART SOUNDS: S1 normal heart sound present and S2 normal heart sound present GI: COMMON NORMALS: Normal to inspection, nondistended, normoactive bowel sounds present, Soft to palpation and non-tender PALPATION: Yes Soft to palpation Extremity: COMMON NORMALS: no joint enlargement and no pedal edema Neuro: COMMON NORMALS: patient oriented x3 and moves all extremities S ENSORIUM/ORIENTATION: Yes alert Skin: COMMON NORMALS: no rashes or lesions noted GENERAL SKIN EXAM: no rashes or lesions noted Data 09/24/23 04:55 09/24/23 04:55 Micro: Microbiology 09/23/23 13:04 Urine Culture - Preliminary Urine,Clean Catch A&P Assessment and plan (1) Cardiomyopathy: Reviewed vitals, CMP, echocardiogram, cardiology note, discussed results with him and with cardiology regarding acute decrease in ejection fraction down to severely low at 15-20%. New cardiomyopathy concern for possible ischemic cardiomyopathy. Appreciate cardiology consultation. As per discussion hold Eliquis, Lovenox for now, plans for additional assessment with coronary angiogram, tentatively for Wednesday monitor for risk of bleeding with Lovenox with NINOSKA. Would try to reduce risk of volume overload, avoiding heparin drip. Discussed with him risk of complications, including congestive heart failure, risk of low output state, organ injury/failure, risk of arrhythmia he was quite orthostatic this morning. Discussed with him bedrest for now. Continue aspirin, metoprolol. (2) Acute kidney injury: Reviewed BUN, creatinine, potassium, anion gap, bicarb. Some improvement in kidney function with creatinine down to 1.3. May be at risk of low output failure, further NINOSKA, acute renal failure. Discussed with him. Reassess kidney function. Reassess hypercalcemia, calcium 11.2. IV fluids discontinued. Acute kidney injury, creatinine up to 1.4, BUN up to 67, with, comorbid conditions with hypokalemia, 2.9. Secondary to dehydration, poor oral intake, several days, with metabolic alkalosis, bicarb 39, calcium 12.4, magnesium 2.5. Sodium 134. Chloride 83. Risk of ATN, severe life-threatening renal failure, risk of arrhythmia with electrolyte abnormality. With comorbid conditions significant weakness, fell down yesterday could not get up, at risk of further falls. Also lives by himself without social support. Additionally chest pain with troponin elevation. Reviewed vitals, CBC, CMP, magnesium, troponin, TSH, UA, CT abdomen pelvis, chest x-ray, head CT, hip/pelvis x-ray. Reviewed ER note, discussed with ER provider. Reviewed CT abdomen pelvis, no sign of obstructive uropathy. Reassess electrolytes, acid-base, kidney function. (3) Chest pain: Appreciate cardiology assessment with regards to possible ischemic cardiomyopathy. Plans for assessment with angiogram. Complete troponin EKG series. EKG on my interpretation with paced rhythm, difficult to appreciate any ischemic changes. Official read pending. Elevated first trop 117. Previously chronic original troponin 4750s, but lower compared to today's. Also having left-sided chest pain, reports intermittent heartburn, but today it feels like pain. Additionally with general Continue aspirin, Eliquis, metoprolol. Hold statin with generalized weakness. Check CK. (4) Troponin level elevated: As above. (5) Generalized weakness: With finding of severe cardiomyopathy, decreased ejection fraction down to 15- 20%. Additional cardiac assessment as above. Orthostatic this morning. Hold off on midodrine as per discussion with him due to concern for possibly cardiac ischemia. Additional workup of chest pain, troponin elevation as above for possible VT. Monitor on telemetry. Discussed with him not to get up on his own, up only with assistance. Check respiratory viral panel as he has been having some nausea with generalized weakness. He is needing nasal cannula oxygen. Equivocal UA with some RBC, 5-10 WBC, follow-up urine culture for possible UTI. Reviewed TSH. Reviewed CK. Held statin for now with possible statin induced myopathy. Treat dehydration, continue IV fluids. Replace potassium. Recheck level. Reassess renal function with acute kidney injury, metabolic alkalosis, hypokalemia. Obtain PT assessment. Lives alone. Case management consultation. Possible adrenal sufficiency, appears to be on chronic prednisone, with mild hypokalemia, metabolic alkalosis, generalized weakness, orthostasis. Increase prednisone dose to 10 mg. Monitor for risk of hyperglycemia, gastritis, encephalopathy with steroids. (6) Orthostasis: Reports subjective orthostasis getting weak and nauseated when he is standing or walking. Will request orthostatic vitals. He was recently started on additional prostate medication, although it appears to be Proscar not Flomax. He has been on Flomax for a while. He is dehydrated, we will go ahead and continue IV fluids at current time. At risk of overload. Possible adrenal insufficiency, long-term treatment with prednisone. Increase prednisone dose to 5 mg twice daily. I do not see other obvious medications contributing to orthostasis. With elevated troponin, chest pain, obtain TTE. Assess LV function, valves. (7) Abnormal urinalysis: Borderline urinalysis with elevated RBC 15-25, on CT does have some renal hypodensities, thought probably benign. Does have some nonobstructive nephrolithiasis likely responsible for his subclinical hematuria. However, does also have 5-10 WBC. Urine culture has been sent and pending. No antibiotics for now, as he had not really complained of urinary symptoms, will follow-up. Was recently started on second prostate medication. No sign of obstruction. (8) Inadequate social support: Lives alone. Does not have family nearby, states that he does have a sister and a cousin, but would not want them to make decisions, although has not been that his will. The person listed in the chart is a caregiver, would not want them to make decisions on his behalf. In case anything is to be decided, states would want doctors to decide. (9) Lung nodule: Follow-up regarding lung nodule with primary provider. Plan Goals of care discussion: In case of severe condition unresponsive to treatment requiring life support without chance of recovery he would want 3 doctors to decide on discontinuation of care. PE: On Eliquis Colon cancer: Awaiting follow-up in [place] BPH: Recently had prostate medication and it looks like has been on tamsulosin and Proscar is added. Congestive heart failure HLD COPD GERD Diabetes Attestations 2 Medical Necessity Statement*: Place in observation for additional assessment and management of new severe cardiomyopathy, possibly ischemic, acute kidney injury with electrolyte deficiency, generalized weakness, troponin elevation, orthostasis, fall in a gentleman of advanced age with prior PE, on anticoagulation and with polypharmacy, with limited social situation living alone. Diagnoses Cardiomyopathy I42.9 Acute kidney injury N17.9 Chest pain R07.9 Troponin level elevated R79.89 Generalized weakness R53.1 Orthostasis I95.1 Abnormal urinalysis R82.90 Inadequate social support Z65.8 Lung nodule R91.1
[2023-09-24] MEDS: enoxaparin 80 mg/0.8 mL Syringe 70 MG SUBCUT (20:59)
[2023-09-24] MEDS: tamsulosin 0.4 mg Capsule PO (21:00)
[2023-09-24] MEDS: nortriptyline 25 mg Capsule 50 MG PO (21:00)
[2023-09-25] VITALS (16 sets, daily range): BP systolic 101–128; BP diastolic 36–73; PULSE 60–106; RESP 14–18; TEMP 36.4–37.6; O2SAT 91–100; BMI 22.6
[2023-09-25] MEDS: ipratropium-albuterol 3 mL Neb INHALATION ×4 (02:05→19:55)
[2023-09-25 06:10] LABS: Basophils % 0.1 %; Hematocrit 31.6 % (37-53); Lymphocytes # 1.2 10^3/uL (0.8-4.8); Lymphocytes % 15.9 %; Mean Corpuscular HGB Conc 29.1 g/dL (30-55); Mean Corpuscular Hemoglobin 22.3 pg (27-33); Mean Corpuscular Volume 76.7 fl (82-101); Monocytes % 13.2 %; Neutrophils # 5.27 10^3/uL (1.8-7.7); Neutrophils % 70.5 %; Nucleated Red Blood Cells % 0 %; Platelet Count 270 10^3/cmm (157-399); Red Blood Count 4.12 10^6/uL (3.85-5.65); Red Cell Distribution Width 16.3 % (12.1-15.1); White Blood Count 7.48 10^3/uL (3.29-11.43)
[2023-09-25] MEDS: montelukast sodium 10 mg Tablet PO (06:21)
[2023-09-25] MEDS: finasteride 5 mg Tablet PO (06:21)
[2023-09-25] MEDS: sucralfate 1 gm Tablet PO ×2 (06:21→17:24)
[2023-09-25] MEDS: aspirin 81 mg EC Tablet PO (06:21)
[2023-09-25] MEDS: metoprolol succinate ER (24 HR) 25 mg Tablet PO (06:21)
[2023-09-25] MEDS: roflumilast 500 mcg Tablet PO (06:21)
[2023-09-25 06:32] LABS: Anion Gap 9.5 (5-19); Blood Urea Nitrogen 56 mg/dL (8-23); Calcium 9.8 mg/dL (8.5-10.5); Carbon Dioxide 39 mmol/L (22-29); Chloride 93 mmol/L (98-107); Creatinine Clr Calc Pharmacy 54.6114; Glucose 155 mg/dL (65-115); Osmolality Calculated 305 mOsm/kg (285-295); Potassium 3.5 mmol/L (3.5-5.1); Sodium 138 mmol/L (136-145)
--- NOTE | 2023-09-25 09:48 | P.PN_ITS ---
Subjective 2 Subjective: Patient had an episode of chest pain this AM. Vitals/I&O/Wt Last Vital Signs Temp 97.6 F 09/25/23 07:32 Pulse 61 09/25/23 08:04 Resp 16 09/25/23 07:59 BP 119/62 09/25/23 07:32 Pulse Ox 100 09/25/23 07:59 O2 Del Method Nasal Cannula 09/25/23 07:59 O2 Flow Rate 4 09/25/23 07:59 09/24/23 09/25/23 09/25/23 22:59 06:59 14:59 Intake Total 718 / 1666 240 / 1906 563 / 563 Output Total 250 / 250 150 / 400 Balance 468 / 1416 90 / 1506 563 / 563 Weight last 48 hrs Weight 162 lb Weight 162 lb Weight 161 lb Weight 161 lb Weight 151 lb Weight 151 lb Physical Exam 2 Narrative: GENERAL: Patient is alert, awake and oriented x3. [] NECK: No jugular vein distension. [] HEENT: No cyanosis. No icterus. No pallor. [] HEART: Regular S1 and S2. No murmur, rub or gallop. [] LUNGS: Clear to auscultate bilaterally. [] CENTRAL NERVOUS SYSTEM: Grossly nonfocal. [] EXTREMITIES: Lower extremities with no edema bilaterally Data 09/26/23 03:09 09/26/23 03:09 Micro: Microbiology 09/23/23 13:04 Urine Culture - Preliminary Urine,Clean Catch A&P Assessment and plan (1) CHF (congestive heart failure): (2) Presence of cardiac pacemaker: (3) Acquired coronary artery fistula: (4) Essential (primary) hypertension: (5) Chest pain: (6) Troponin level elevated: (7) Cardiomyopathy: Plan Patient had another episode of chest pain. Plan for coronary angiogram with possible PCI tomorrow. N.p.o. after midnight. Eliquis has been stopped yesterday and patient is currently on Lovenox. Thank you for involving us with care of this patient. We will continue to follow. Please call with questions. Attestations 2 Medical Necessity Statement*: Care expected to cross 2 midnights. Coding Level of Care Code Acute Code for [facility] Diagnoses CHF (congestive heart failure) I50.9 Presence of cardiac pacemaker Z95.0 Acquired coronary artery fistula I25.41 Essential (primary) hypertension I10 Chest pain R07.9 Troponin level elevated R79.89 Cardiomyopathy I42.9
[2023-09-25] MEDS: enoxaparin 80 mg/0.8 mL Syringe 70 MG SUBCUT ×2 (09:49→20:48)
[2023-09-25] MEDS: lactobacillus 1 Tablet 1 TAB PO ×2 (09:49→17:25)
[2023-09-25] MEDS: pantoprazole DR 40 mg Tablet PO (09:49)
[2023-09-25] MEDS: FUROsemide 40 mg Tablet PO ×2 (09:49→17:24)
[2023-09-25] MEDS: ferrous sulfate EC 325 mg Tablet PO (09:50)
[2023-09-25] MEDS: predniSONE 5 mg Tablet PO ×2 (09:50→17:25)
[2023-09-25] MEDS: acetaminophen 325 mg Tablet 650 MG PO (09:53)
[2023-09-25] MEDS: fluticasone nasal spray 16gm Btl 2 SPRAY INTRANASAL (09:55)
--- NOTE | 2023-09-25 18:41 | PM.PN ---
Subjective Subjective: He was having some chest pain this morning. He has also been having some cough and he does say he has some sputum buildup. Vitals/I&O/Wt Last Vital Signs Temp 99.7 F H 09/25/23 15:57 Pulse 67 09/25/23 15:57 Resp 17 09/25/23 15:57 BP 108/49 09/25/23 15:57 Pulse Ox 91 09/25/23 15:57 O2 Del Method Nasal Cannula 09/25/23 15:57 O2 Flow Rate 3.5 09/25/23 15:57 09/25/23 09/25/23 09/25/23 06:59 14:59 22:59 Intake Total 240 / 1906 1043 / 1043 236 / 1279 Output Total 150 / 400 Balance 90 / 1506 1043 / 1043 236 / 1279 Weight last 48 hrs Weight 73.482 kg Weight 73.482 kg Weight 73.028 kg Weight 73.028 kg Physical Exam Const: COMMON NORMALS: patient oriented x3 and alert GENERAL APPEARANCE: cooperative ORIENTATION/CONSCIOUSNESS: Yes awake HENMT: COMMON NORMALS: oropharynx normal OTHER: Edentulous. Neck/C-Spine: COMMON NORMALS: no JVD Chest: OTHER: L chest PPM Resp: COMMON NORMALS: normal respiratory effort and clear to auscultation bilaterally AUSCULTATION: clear to auscultation bilaterally Cardio: COMMON NORMALS: no JVD, regular rhythm, S1 normal heart sound present, S2 normal heart sound present and No murmurs present (Cardio) RHYTHM: regular rhythm HEART SOUNDS: S1 normal heart sound present and S2 normal heart sound present GI: COMMON NORMALS: Normal to inspection, nondistended, normoactive bowel sounds present, Soft to palpation and non-tender PALPATION: Yes Soft to palpation Extremity: COMMON NORMALS: no joint enlargement and no pedal edema Neuro: COMMON NORMALS: patient oriented x3 and moves all extremities SENSORIUM/ORIENTATION: Yes alert Skin: COMMON NORMALS: no rashes or lesions noted GENERAL SKIN EXAM: no rashes or lesions noted Data 09/25/23 05:17 09/25/23 05:17 Micro: Microbiology 09/23/23 13:04 Urine Culture - Final Urine,Clean Catch A&P Assessment and plan (1) Cardiomyopathy: Having some chest pain this morning. Reviewed vitals, CBC, afebrile, without leukocytosis. Reviewed BMP, discussed with offset machine operator. Plan for cardiac cath tomorrow. Will make n.p.o. Aute decrease in ejection fraction down to severely low at 15-20%. New cardiomyopathy concern for possible ischemic cardiomyopathy. Appreciate cardiology consultation. As per discussion hold Haydeemanas Paytonchang for now, plans for additional assessment with coronary angiogram, tentatively for Wednesday monitor for risk of bleeding with Lovenox with NINOSKA. Would try to reduce risk of volume overload, avoiding heparin drip. Discussed with him risk of complications, including congestive heart failure, risk of low output state, organ injury/failure, risk of arrhythmia he was quite orthostatic this morning. Discussed with him bedrest for now. Continue aspirin, metoprolol. (2) Acute kidney injury: Reviewed BUN, creatinine, potassium, bicarb, anion gap. Kidney function with improvement. Reassess kidney function, electrolytes. Reviewed BUN, creatinine, potassium, anion gap, bicarb. Some improvement in kidney function with creatinine down to 1.3. May be at risk of low output failure, further NINOSKA, acute renal failure. Discussed with him. Reassess kidney function. Reassess hypercalcemia, calcium 11.2. Acute kidney injury, creatinine up to 1.4, BUN up to 67, with, comorbid conditions with hypokalemia, 2.9. Secondary to dehydration, poor oral intake, several days, with metabolic alkalosis, bicarb 39, calcium 12.4, magnesium 2.5. Sodium 134. Chloride 83. Risk of ATN, severe life-threatening renal failure, risk of arrhythmia with electrolyte abnormality. With comorbid conditions significant weakness, fell down yesterday could not get up, at risk of further falls. Also lives by himself without social support. Additionally chest pain with troponin elevation. Reviewed vitals, CBC, CMP, magnesium, troponin, TSH, UA, CT abdomen pelvis, chest x-ray, head CT, hip/pelvis x-ray. Reviewed ER note, discussed with ER provider. Reviewed CT abdomen pelvis, no sign of obstructive uropathy. Reassess electrolytes, acid-base, kidney function. (3) Chest pain: He has some chest pain again this morning. Additional workup with coronary angiography planned for tomorrow morning. He also has been having some cough and feels that he has had some phlegm buildup. Low-grade temp 99.7. Check respiratory viral panel. Discussed with him adding Mucinex with suspicion of bronchitis. Will obtain chest x-ray. Monitor for risk of bleeding with Lovenox. Appreciate cardiology assessment with regards to possible ischemic cardiomyopathy. Plans for assessment with angiogram. Complete troponin EKG series. EKG on my interpretation with paced rhythm, difficult to appreciate any ischemic changes. Official read pending. Elevated first trop 117. Previously chronic original troponin 4750s, but lower compared to today's. Also having left-sided chest pain, reports intermittent heartburn, but today it feels like pain. Additionally with general Continue aspirin, Eliquis, metoprolol. Hold statin with generalized weakness. Check CK. (4) Troponin level elevated: As above. (5) Generalized weakness: He is having some cough, phlegm, low-grade temp 99.7. Check respiratory viral panel. Chest x-ray. With finding of severe cardiomyopathy, decreased ejection fraction down to 15-20%. Additional cardiac assessment as above. Orthostatic this morning. Hold off on midodrine as per discussion with him due to concern for possibly cardiac ischemia. Additional workup of chest pain, troponin elevation as above for possible [place]. Monitor on telemetry. Discussed with him not to get up on his own, up only with assistance. Check respiratory viral panel as he has been having some nausea with generalized weakness. He is needing nasal cannula oxygen. Equivocal UA with some RBC, 5-10 WBC, follow-up urine culture for possible UTI. Reviewed TSH. Reviewed CK. Held statin for now with possible statin induced myopathy. Treat dehydration, continue IV fluids. Replace potassium. Recheck level. Reassess renal function with acute kidney injury, metabolic alkalosis, hypokalemia. Obtain PT assessment. Lives alone. Case management consultation. Possible adrenal sufficiency, appears to be on chronic prednisone, with mild hypokalemia, metabolic alkalosis, generalized weakness, orthostasis. Increase prednisone dose to 10 mg. Monitor for risk of hyperglycemia, gastritis, encephalopathy with steroids. (6) Orthostasis: Reports subjective orthostasis getting weak and nauseated when he is standing or walking. Will request orthostatic vitals. He was recently started on additional prostate medication, although it appears to be Proscar not Flomax. He has been on Flomax for a while. He is dehydrated, we will go ahead and continue IV fluids at current time. At risk of overload. Possible adrenal insufficiency, long-term treatment with prednisone. Increase prednisone dose to 5 mg twice daily. I do not see other obvious medications contributing to orthostasis. With elevated troponin, chest pain, obtain TTE. Assess LV function, valves. (7) Abnormal urinalysis: Borderline urinalysis with elevated RBC 15-25, on CT does have some renal hypodensities, thought probably benign. Does have some nonobstructive nephrolithiasis likely responsible for his subclinical hematuria. However, does also have 5-10 WBC. Urine culture has been sent and pending. No antibiotics for now, as he had not really complained of urinary symptoms, will follow-up. Was recently started on second prostate medication. No sign of obstruction. (8) Inadequate social support: Lives alone. Does not have family nearby, states that he does have a sister and a cousin, but would not want them to make decisions, although has not been that his will. The person listed in the chart is a caregiver, would not want them to make decisions on his behalf. In case anything is to be decided, states would want doctors to decide. (9) Lung nodule: Follow-up regarding lung nodule with primary provider. Plan Goals of care discussion: In case of severe condition unresponsive to treatment requiring life support without chance of recovery he would want 3 doctors to decide on discontinuation of care. PE: On Eliquis Colon cancer: Awaiting follow-up in [place] BPH: Recently had prostate medication and it looks like has been on tamsulosin and Proscar is added. Congestive heart failure HLD COPD GERD Diabetes Attestations Medical Necessity Statement*: Place in observation for additional assessment and management of new severe cardiomyopathy, possibly ischemic, acute kidney injury with electrolyte deficiency, generalized weakness, troponin elevation, orthostasis, fall in a gentleman of advanced age with prior PE, on anticoagulation and with polypharmacy, with limited social situation living alone. and High MDM includes amount and/or complexity of data reviewed/ordered [ resulted lab(s)/test(s), ordered lab(s)/test(s) and other healthcare professional discussion] and described risk of complication, morbidity or mortality of management as documented Diagnoses Cardiomyopathy I42.9 Acute kidney injury N17.9 Chest pain R07.9 Troponin level elevated R79.89 Generalized weakness R53.1 Orthostasis I95.1 Abnormal urinalysis R82.90 Inadequate social support Z65.8 Lung nodule R91.1
--- NOTE | 2023-09-25 19:01 | XRR_ITS ---
PROCEDURE INFORMATION: Exam: XR Chest Exam date and time: 09/25/2023 10:23 PM Age: 83 years old Clinical indication: Patient HX: Cough; Congestion TECHNIQUE: Imaging protocol: Radiologic exam of the chest. Views: 1 view. COMPARISON: CR (CHEST, ) 09/23/2023 1:23 PM FINDINGS: Tubes, catheters and devices: Left-sided cardiac pacemaker again noted. Lungs: No CHF/pulmonary edema. Visible lungs appear essentially clear. Pleural spaces: No visible pneumothorax. No definite pleural fluid. Heart/Mediastinum: Heart size appears upper range of normal. Bones/joints: No significant acute finding. XR/XR chest 1V portable [id number] IMPRESSION: 1. No definite pneumonia or CHF. 2. Other findings discussed above.
[2023-09-25] MEDS: guaiFENesin 600 mg Tablet PO (20:47)
[2023-09-25] MEDS: nortriptyline 25 mg Capsule 50 MG PO (20:47)
[2023-09-25] MEDS: tamsulosin 0.4 mg Capsule PO (20:48)
[2023-09-25 22:12] LABS: Adenovirus Not Detected (NOT DETECT); Chlamydia Pneumoniae Not Detected (NOT DETECT); Coronavirus 229E,HKU1,NL63,OC4 Not Detected (NOT DETECT); Human Metapneumovirus Not Detected (NOT DETECT); Human Rhinovirus/Enterovirus Not Detected (NOT DETECT); Influenza A Not Detected (NOT DETECT); Influenza A H1 Not Detected (NOT DETECT); Influenza A H1-2009 Not Detected (NOT DETECT); Influenza A H3 Not Detected (NOT DETECT); Influenza B Not Detected (NOT DETECT); Mycoplasma Pneumoniae Not Detected (NOT DETECT); Parainfluenza Virus Type 1 Not Detected (NOT DETECT); Parainfluenza Virus Type 2 Not Detected (NOT DETECT); Parainfluenza Virus Type 3 Not Detected (NOT DETECT); Parainfluenza Virus Type 4 Not Detected (NOT DETECT); Respiratory Syncytial Virus A Not Detected (NOT DETECT); Respiratory Syncytial Virus B Not Detected (NOT DETECT); SARS-COV-2 Not Detected (NOT DETECT)
[2023-09-26] VITALS (73 sets, daily range): BP systolic 99–126; BP diastolic 52–66; PULSE 59–120; RESP 5–30; TEMP 35.7–36.9; O2SAT 80–100
[2023-09-26] MEDS: ipratropium-albuterol 3 mL Neb INHALATION ×4 (01:08→19:52)
[2023-09-26 03:37] LABS: Basophils % 0.1 %; Lymphocytes % 13.8 %; Mean Corpuscular Hemoglobin 21.9 pg (27-33); Mean Corpuscular Volume 75.4 fl (82-101); Mean Platelet Volume 8.9 fL (7.4-10.4); Monocytes # 0.8 10^3/uL (0.2-0.9); Monocytes % 11.6 %; Neutrophils # 5.37 10^3/uL (1.8-7.7); Neutrophils % 74.1 %; Nucleated Red Blood Cells % 0 %; Platelet Count 254 10^3/cmm (157-399); Red Blood Count 4.11 10^6/uL (3.85-5.65); Red Cell Distribution Width 16.3 % (12.1-15.1); White Blood Count 7.25 10^3/uL (3.29-11.43)
[2023-09-26 04:00] LABS: Anion Gap 10.7 (5-19); Blood Urea Nitrogen 50 mg/dL (8-23); Calcium 9.1 mg/dL (8.5-10.5); Carbon Dioxide 36 mmol/L (22-29); Chloride 95 mmol/L (98-107); Creatinine Clr Calc Pharmacy 66.7473; Glucose 162 mg/dL (65-115); Osmolality Calculated 303 mOsm/kg (285-295); Potassium 3.7 mmol/L (3.5-5.1); Sodium 138 mmol/L (136-145)
[2023-09-26] MEDS: finasteride 5 mg Tablet PO (06:07)
[2023-09-26] MEDS: roflumilast 500 mcg Tablet PO (06:07)
[2023-09-26] MEDS: metoprolol succinate ER (24 HR) 25 mg Tablet PO (06:08)
[2023-09-26] MEDS: aspirin 81 mg EC Tablet PO (06:08)
[2023-09-26] MEDS: montelukast sodium 10 mg Tablet PO (06:08)
[2023-09-26] MEDS: sucralfate 1 gm Tablet PO ×2 (06:09→18:09)
--- NOTE | 2023-09-26 07:40 | W.PM.OPSUD ---
Surgery/Procedure H&P Update DATE OF PROCEDURE: September 26, 2023 DATE H&P PERFORMED: 09/24/23 H&P UPDATE INFORMATION: I have reviewed H&P completed within last 30 days, I have examined patient prior to procedure and No changes to prior documentation PREOP DIAGNOSIS: LV dysfunction/ chest pain/ Troponin elevation PRIMARY INDICATION FOR PROCEDURE: LV dysfunction/ chest pain/ Troponin elevation PLANNED PROCEDURE: Left heart cath with possible percutaneous coronary intervention PATIENT REASSESSED PRIOR TO SEDATION, WITH NO CHANGE NOTED: Yes PHYSICAL EXAM: alert, oriented x 3, clear to auscultation bilaterally and regular rate & rhythm AIRWAY EVAL/ANESTHESIA PLAN: normal airway, ASA III, Local Anesthesia, Risks, benefits & alternatives of sedation and/or procedure discussed and Patient agrees to continue as planned ADDITIONAL INFORMATION: Moderate sedation
--- NOTE | 2023-09-26 07:57 | PC.NURSE ---
given report on this pt at approx. 0705, pt left for medical lab specialist at approx. [phone]
--- NOTE | 2023-09-26 08:03 | P.PN_ITS ---
Subjective 2 Subjective: Patient no chest pain. Coronary angiogram revealing patent coronary arteries. Vitals/I&O/Wt Last Vital Signs Temp 96.3 F L 09/26/23 04:02 Pulse 61 09/26/23 05:37 Resp 15 09/26/23 04:02 BP 120/65 09/26/23 04:02 Pulse Ox 99 09/26/23 04:02 O2 Del Method Nasal Cannula 09/26/23 04:02 O2 Flow Rate 4 09/26/23 04:02 09/25/23 09/26/23 09/26/23 22:59 06:59 14:59 Intake Total 236 / 1279 600 / 1879 Balance 236 / 1279 600 / 1879 Weight last 48 hrs Weight 162 lb Weight 162 lb Physical Exam 2 Narrative: GENERAL: Patient is alert, awake and oriented x3. [] NECK: No jugular vein distension. [] HEENT: No cyanosis. No icterus. No pallor. [] HEART: Regular S1 and S2. No murmur, rub or gallop. [] LUNGS: Clear to auscultate bilaterally. [] CENTRAL NERVOUS SYSTEM: Grossly nonfocal. 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 Nonischemic cardiac output. He has coronary artery fistula from circumflex artery likely draining into pulmonary artery. Will benefit from LifeVest at time of discharge. Optimal medical therapy. Thank you for involving us with care of this patient. We will continue to follow. Please call with questions. Attestations 2 Medical Necessity Statement*: Care expected to cross 2 midnights. Coding Level of Care Code Acute Code for Chg Fwd Diagnoses CHF (congestive heart failure) I50.9 Presence of cardiac pacemaker Z95.0 Acquired coronary artery fistula I25.41 Essential (primary) hypertension I10 Chest pain R07.9 Troponin level elevated R79.89 Cardiomyopathy I42.9
[2023-09-26] MEDS: guaiFENesin 600 mg Tablet PO ×2 (09:54→18:08)
[2023-09-26] MEDS: predniSONE 5 mg Tablet PO ×2 (09:54→18:08)
[2023-09-26] MEDS: lactobacillus 1 Tablet 1 TAB PO ×2 (09:54→18:08)
[2023-09-26] MEDS: ferrous sulfate EC 325 mg Tablet PO (09:54)
[2023-09-26] MEDS: fluticasone nasal spray 16gm Btl 2 SPRAY INTRANASAL (09:54)
[2023-09-26] MEDS: pantoprazole DR 40 mg Tablet PO (09:54)
--- NOTE | 2023-09-26 19:45 | PC.NURSE ---
phone number phone number found for son- [phone] jill kulkarni
--- NOTE | 2023-09-26 19:53 | P.PN_ITS ---
Subjective 2 Subjective: She is doing all right after coronary angiogram through right wrist access. Denies chest pain. Vitals/I&O/Wt Last Vital Signs Temp 97.2 F L 09/26/23 19:00 Pulse 61 09/26/23 19:00 Resp 17 09/26/23 14:00 BP 99/62 09/26/23 19:00 Pulse Ox 100 09/26/23 15:00 O2 Del Method Nasal Cannula 09/26/23 14:00 O2 Flow Rate 4 09/26/23 14:00 09/26/23 09/26/23 09/26/23 06:59 14:59 22:59 Intake Total 600 / 1879 360 / 360 Output Total 375 / 375 250 / 625 Balance 600 / 1879 -15 / -15 -250 / -265 Weight last 48 hrs Weight 73.482 kg Weight 73.482 kg Physical Exam 2 Const: COMMON NORMALS: patient oriented x3 and alert GENERAL APPEARANCE: c ooperative ORIENTATION/CONSCIOUSNESS: Yes awake HENMT: COMMON NORMALS: oropharynx normal OTHER: Edentulous. Neck/C-Spine: COMMON NORMALS: no JVD Chest: OTHER: L chest PPM Resp: COMMON NORMALS: normal respiratory effort and clear to auscultation bilaterally AUSCULTATION: clear to auscultation bilaterally Cardio: COMMON NORMALS: no JVD, regular rhythm, S1 normal heart sound present, S2 normal heart sound present and No murmurs present (Cardio) RHYTHM: regular rhythm HEART SOUNDS: S1 normal heart sound present and S2 normal heart sound present GI: COMMON NORMALS: Normal to inspection, nondistended, normoactive bowel sounds present, Soft to palpation and non-tender PALPATION: Yes Soft to palpation Extremity: COMMON NORMALS: no joint enlargement and no pedal edema Neuro: COMMON NORMALS: patient oriented x3 and moves all extremities S ENSORIUM/ORIENTATION: Yes alert Skin: COMMON NORMALS: no rashes or lesions noted GENERAL SKIN EXAM: no rashes or lesions noted Data 09/26/23 03:09 09/26/23 03:09 A&P Assessment and plan (1) Cardiomyopathy: Status post coronary angiography for new severe cardiomyopathy EF down to 20%. Reviewed vitals, CBC, BMP, reassess renal function after angiogram with risk of NINOSKA. Discussed with sql bi developer. Discussed with patient. Nonobstructive coronaries. Nonischemic cardiomyopathy. He does report having a viral/flulike illness several weeks back. Cardiology planning to get him set up with a chest vest. NINOSKA improved. Consider addition of dapagliflozin at discharge. Currently blood pressure T-Shock to try Entresto. Continue metoprolol. Pending arrangements for rehabilitation at SNF. (2) Acute kidney injury: Reviewed BUN, creatinine, potassium, bicarb. NINOSKA improving. Reassess kidney function after angiogram. Acute kidney injury, creatinine up to 1.4, BUN up to 67, with, comorbid conditions with hypokalemia, 2.9. Secondary to dehydration, poor oral intake, several days, with metabolic alkalosis, bicarb 39, calcium 12.4, magnesium 2.5. Sodium 134. Chloride 83. Risk of ATN, severe life-threatening renal failure, risk of arrhythmia with electrolyte abnormality. With comorbid conditions significant weakness, fell down yesterday could not get up, at risk of further falls. Also lives by himself without social support. Additionally chest pain with troponin elevation. Reviewed vitals, CBC, CMP, magnesium, troponin, TSH, UA, CT abdomen pelvis, chest x-ray, head CT, hip/pelvis x-ray. Reviewed ER note, discussed with ER provider. Reviewed CT abdomen pelvis, no sign of obstructive uropathy. Reassess electrolytes, acid-base, kidney function. (3) Chest pain: So far resolved. Chest x-ray reviewed, no definitive pneumonia or CHF. Respiratory viral panel negative. Monitor for risk of bleeding with Lovenox. Appreciate cardiology assessment with regards to possible ischemic cardiomyopathy. Plans for assessment with angiogram. Complete troponin EKG series. EKG on my interpretation with paced rhythm, difficult to appreciate any ischemic changes. Official read pending. Elevated first trop 117. Previously chronic original troponin 4750s, but lower compared to today's. Also having left-sided chest pain, reports intermittent heartburn, but today it feels like pain. Additionally with general Continue aspirin, Eliquis, metoprolol. Hold statin with generalized weakness. Check CK. (4) Troponin level elevated: As above. (5) Generalized weakness: Now afebrile. Component of bronchitis improved. Reviewed respiratory viral panel, negative. Unremarkable chest x-ray. With finding of severe cardiomyopathy, decreased ejection fraction down to 15- 20%. Additional cardiac assessment as above. Orthostatic. Did increase prednisone to 5 mg twice daily on the off chance of component of adrenal insufficiency with chronic steroid. Recheck orthostatics. Unremarkable TSH, CK. Held statin for now with possible statin induced myopathy. Obtain PT assessment. Lives alone. Case management consultation. Possible adrenal sufficiency, appears to be on chronic prednisone, with mild hypokalemia, metabolic alkalosis, generalized weakness, orthostasis. Increase prednisone dose to 10 mg. Monitor for risk of hyperglycemia, gastritis, encephalopathy with steroids. (6) Orthostasis: Possible adrenal insufficiency, long-term treatment with prednisone. Increased prednisone dose to 5 mg twice daily. Recheck orthostatics. I do not see other obvious medications contributing to orthostasis. Continue worsening of cardiomyopathy as above. (7) Abnormal urinalysis: Borderline urinalysis with elevated RBC 15-25, on CT does have some renal hypodensities, thought probably benign. Does have some nonobstructive nephrolithiasis likely responsible for his subclinical hematuria. However, does also have 5-10 WBC. Urine culture has been sent and pending. No antibiotics for now, as he had not really complained of urinary symptoms, follow-up. Was recently started on second prostate medication. No sign of obstruction. (8) Inadequate social support: Lives alone. Does not have family nearby, states that he does have a sister and a cousin, but would not want them to make decisions, although has not been that his will. The person listed in the chart is a caregiver, would not want them to make decisions on his behalf. In case anything is to be decided, states would want doctors to decide. (9) Lung nodule: Follow-up regarding lung nodule with primary provider. Plan Goals of care discussion: In case of severe condition unresponsive to treatment requiring life support without chance of recovery he would want 3 doctors to decide on discontinuation of care. PE: On Eliquis Colon cancer: Awaiting follow-up in [place] BPH: Recently had prostate medication and it looks like has been on tamsulosin and Proscar is added. Congestive heart failure HLD COPD GERD Diabetes Attestations 2 Medical Necessity Statement*: Place in observation for additional assessment and management of new severe cardiomyopathy, orthostatic hypotension, generalized weakness, fall in a gentleman of advanced age with prior PE, on anticoagulation and with polypharmacy, with limited social situation living alone. Diagnoses Cardiomyopathy I42.9 Acute kidney injury N17.9 Chest pain R07.9 Troponin level elevated R79.89 Generalized weakness R53.1 Orthostasis I95.1 Abnormal urinalysis R82.90 Inadequate social support Z65.8 Lung nodule R91.1
[2023-09-26] MEDS: tamsulosin 0.4 mg Capsule PO (20:16)
[2023-09-26] MEDS: nortriptyline 25 mg Capsule 50 MG PO (20:17)
--- NOTE | 2023-09-26 22:19 | PC.NURSE ---
pt transfer of care this nurse called report to jenniffer rn and transported pt with no complications.
[2023-09-27] VITALS (15 sets, daily range): BP systolic 103–130; BP diastolic 47–67; PULSE 60–91; RESP 16–19; TEMP 36.5–36.8; O2SAT 96–100
[2023-09-27] MEDS: ipratropium-albuterol 3 mL Neb INHALATION ×4 (02:06→20:15)
[2023-09-27 04:01] LABS: Basophils % 0.1 %; Hematocrit 29.5 % (37-53); Lymphocytes # 1.1 10^3/uL (0.8-4.8); Lymphocytes % 14.2 %; Mean Corpuscular HGB Conc 28.5 g/dL (30-55); Mean Corpuscular Hemoglobin 22.3 pg (27-33); Mean Corpuscular Volume 78.5 fl (82-101); Mean Platelet Volume 8.8 fL (7.4-10.4); Monocytes # 0.9 10^3/uL (0.2-0.9); Monocytes % 11.7 %; Neutrophils # 5.84 10^3/uL (1.8-7.7); Neutrophils % 73.6 %; Nucleated Red Blood Cells % 0 %; Platelet Count 240 10^3/cmm (157-399); Red Blood Count 3.76 10^6/uL (3.85-5.65); Red Cell Distribution Width 16.4 % (12.1-15.1); White Blood Count 7.94 10^3/uL (3.29-11.43)
[2023-09-27 04:38] LABS: Anion Gap 8.4 (5-19); Blood Urea Nitrogen 43 mg/dL (8-23); Calcium 8.8 mg/dL (8.5-10.5); Carbon Dioxide 35 mmol/L (22-29); Chloride 102 mmol/L (98-107); Creatinine Clr Calc Pharmacy 54.6114; Glucose 182 mg/dL (65-115); Osmolality Calculated 307 mOsm/kg (285-295); Potassium 4.4 mmol/L (3.5-5.1); Sodium 141 mmol/L (136-145)
[2023-09-27] MEDS: finasteride 5 mg Tablet PO (06:18)
[2023-09-27] MEDS: sucralfate 1 gm Tablet PO ×2 (06:18→17:08)
[2023-09-27] MEDS: aspirin 81 mg EC Tablet PO (06:18)
[2023-09-27] MEDS: roflumilast 500 mcg Tablet PO (06:18)
[2023-09-27] MEDS: montelukast sodium 10 mg Tablet PO (06:18)
[2023-09-27] MEDS: metoprolol succinate ER (24 HR) 25 mg Tablet PO (06:18)
--- NOTE | 2023-09-27 07:32 | PM.PN ---
Subjective Subjective: Patient is doing well. no chest pain. Renal function is improving. Vitals/I&O/Wt Last Vital Signs Temp 97.8 F 09/27/23 04:00 Pulse 62 09/27/23 04:00 Resp 18 09/27/23 04:00 BP 120/63 09/27/23 04:00 Pulse Ox 99 09/27/23 04:00 O2 Del Method Nasal Cannula 09/27/23 04:00 O2 Flow Rate 3 09/27/23 04:00 09/26/23 09/27/23 09/27/23 22:59 06:59 14:59 Intake Total 480 / 840 Output Total 250 / 625 200 / 825 Balance -250 / -265 280 / 15 Weight last 48 hrs Weight 172 lb 8 oz Physical Exam Narrative: GENERAL: Patient is alert, awake and oriented x3. [] NECK: No jugular vein distension. [] HEENT: No cyanosis. No icterus. No pallor. [] HEART: Regular S1 and S2. No murmur, rub or gallop. [] LUNGS: Clear to auscultate bilaterally. [] CENTRAL NERVOUS SYSTEM: Grossly nonfocal. 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 Getting LifeVest. Continue metoprolol. Spironolactone added. Will start low-dose Entresto. Thank you for involving us with care of this patient. We will continue to follow. Please call with questions. Attestations Medical Necessity Statement*: Care expected to cross 2 midnights. Coding Level of Care Code Acute Code for [facility] Fwd Diagnoses CHF (congestive heart failure) I50.9 Presence of cardiac pacemaker Z95.0 Acquired coronary artery fistula I25.41 Essential (primary) hypertension I10 Chest pain R07.9 Troponin level elevated R79.89 Cardiomyopathy I42.9
[2023-09-27] MEDS: pantoprazole DR 40 mg Tablet PO (08:57)
[2023-09-27] MEDS: guaiFENesin 600 mg Tablet PO ×2 (08:57→17:08)
[2023-09-27] MEDS: predniSONE 5 mg Tablet PO ×2 (08:57→17:08)
[2023-09-27] MEDS: lactobacillus 1 Tablet 1 TAB PO ×2 (08:57→17:08)
[2023-09-27] MEDS: ferrous sulfate EC 325 mg Tablet PO (08:57)
[2023-09-27] MEDS: apixaban 5 mg Tablet PO ×2 (08:57→17:08)
--- NOTE | 2023-09-27 09:24 | PC.CHAP ---
Pastoral Care Encounter/Spiritual Assessment Type of Contact [] Declined rattle leak and squeak repairer visit [] Patient/Family/Request visit [] Outpatient visit [] Follow-up visit [] Physician referral [] Code/Alert [x] Routine visit [] Staff referral [] Actively dying [x] Patient sleeping [] Family support [] [] Out of room [] Palliative care [] [] Receiving care in room [] Pre-surgical visit [] Trauma [] Long length of stay [] ICU visit [] Other: Relational/Emotional Strength [] Patient feels connected with others/family/visitors/staff [] Distress [] Loneliness/isolation [] Abandonment Spirituality of Patient [] Person of Lynda [] Attends Confucianism of their Lynda [] Believes in Prayer [] Reads Bible or Congregational materials [] There are Spiritual issues to be addressed Natural Sciences Professor Interventions [x] Prayer [] Active listening [] Non-anxious presence [] Spiritual/emotional support [] Crisis/trauma care [] Spiritual counseling [] Bereavement support [] Provided bereavement packet [] Provided Bible/devotional materials [] Provided toy/stuffed animal, coloring book to patient or family member [] Provided Communion [] Anointing/[place] [] Salvation [] Completed spiritual assessment [] Other: Impact on Illness or Injury [] Angry [] Fearful [] Anxious [] Often cries [] Exhaustion [] Unable to work [] Unable to attend anabaptist [] Unable to walk/stand [] Unable to read [] Unable to drive [] Unable to eat/drink [] Unable to sleep [] Unable to be with family [] Patient intubated [] Other: Summary Time spent with patient
--- NOTE | 2023-09-27 12:18 | PC.SOCIAL ---
IMM Update pg 2 of IMM updated and reviewed w/ patient. Copy provided and copy dated, initialed and placed in chart.
--- NOTE | 2023-09-27 16:01 | P.PN_ITS ---
Subjective 2 Subjective: Hospital course, labs appreciated. Laying comfortably in bed during examination. Getting fitted with LifeVest. Remains on room air. Hemodynamically stable. Renal function so far stable. Vitals/I&O/Wt Last Vital Signs Temp 98.3 F 09/27/23 15:55 Pulse 63 09/27/23 15:55 Resp 18 09/27/23 15:55 BP 120/54 09/27/23 15:55 Pulse Ox 98 09/27/23 15:55 O2 Del Method Room Air 09/27/23 15:55 O2 Flow Rate 3 09/27/23 13:27 09/27/23 09/27/23 09/27/23 06:59 14:59 22:59 Intake Total 480 / 840 240 / 240 Output Total 200 / 825 Balance 280 / 15 240 / 240 Weight last 48 hrs Weight 77.655 kg Weight 78.245 kg Physical Exam 2 Const: COMMON NORMALS: patient oriented x3 and alert GENERAL APPEARANCE: c ooperative ORIENTATION/CONSCIOUSNESS: Yes awake HENMT: COMMON NORMALS: oropharynx normal OTHER: Edentulous. Neck/C-Spine: COMMON NORMALS: no JVD Chest: OTHER: L chest PPM Resp: COMMON NORMALS: normal respiratory effort and clear to auscultation bilaterally AUSCULTATION: clear to auscultation bilaterally Cardio: COMMON NORMALS: no JVD, regular rhythm, S1 normal heart sound present, S2 normal heart sound present and No murmurs present (Cardio) RHYTHM: regular rhythm HEART SOUNDS: S1 normal heart sound present and S2 normal heart sound present GI: COMMON NORMALS: Normal to inspection, nondistended, normoactive bowel sounds present, Soft to palpation and non-tender PALPATION: Yes Soft to palpation Extremity: COMMON NORMALS: no joint enlargement and no pedal edema Neuro: COMMON NORMALS: patient oriented x3 and moves all extremities S ENSORIUM/ORIENTATION: Yes alert Skin: COMMON NORMALS: no rashes or lesions noted GENERAL SKIN EXAM: no rashes or lesions noted Data 09/27/23 03:43 09/27/23 03:43 A&P Assessment and plan (1) Cardiomyopathy: Repeat echocardiogram done on this admission consistent with a EF of around 20%. Post angiogram showing nonobstructive CAD. Consistent with nonischemic cardiomyopathy. Strict input and output charting, daily weights. Medical reconciliation for uptitrating guideline directed medical therapy. Plan for LifeVest given low EF. Continue with metoprolol 25 mg oral daily. Add spironolactone 25 mg oral daily. Patient currently euvolemic. Hold off on Lasix for now. (2) Acute kidney injury: Present on admission. Most likely infection of cardiorenal syndrome. Resolving. Creatinine stable at 1.1. CT abdomen pelvis negative for obstructive nephropathy. Monitor electrolytes daily. Euvolemic for now. Holding off on Lasix. Adding spironolactone as above. Patient did undergo cardiac angiogram on 09/25. At risk for BRYANT. Will continue to monitor renal functions. Currently no electrolyte normality or anion gap abnormality. (3) Chest pain: Could be in setting of congestive heart failure. Normal coronaries on angiogram. Appreciate recent A1c and lipid panel. Continue baby aspirin 81 mg daily, home dose of statin. Metoprolol as above. (4) Troponin level elevated: As above. (5) Generalized weakness: Most likely in setting of congestive heart failure with severe cardiomyopathy and EF of 20%. Orthostatic positive on admission. Has resolved since increasing oral prednisone to 5 mg twice daily. Repeat orthostatic. Appreciate TSH and CPK levels. Appreciate PT evaluation. Given all of the above patient will benefit from SNF placement. Patient is agreeable. Case management working on the same. (6) Orthostasis: Possible adrenal insufficiency, long-term treatment with prednisone. Increased prednisone dose to 5 mg twice daily. Recheck orthostatics. I do not see other obvious medications contributing to orthostasis. Continue worsening of cardiomyopathy as above. (7) Abnormal urinalysis: Borderline urinalysis with elevated RBC 15-25, on CT does have some renal hypodensities, thought probably benign. Does have some nonobstructive nephrolithiasis likely responsible for his subclinical hematuria. However, does also have 5-10 WBC. Urine culture has been sent and pending. No antibiotics for now, as he had not really complained of urinary symptoms, follow-up. Was recently started on second prostate medication. No sign of obstruction. (8) Inadequate social support: Lives alone. Does not have family nearby, states that he does have a sister and a cousin, but would not want them to make decisions, although has not been that his will. The person listed in the chart is a caregiver, would not want them to make decisions on his behalf. In case anything is to be decided, states would want doctors to decide. (9) Lung nodule: Follow-up regarding lung nodule with primary provider. Plan Goals of care discussion: In case of severe condition unresponsive to treatment requiring life support without chance of recovery he would want 3 doctors to decide on discontinuation of care. PE: On Eliquis Colon cancer: Awaiting follow-up in [place] BPH: Recently had prostate medication and it looks like has been on tamsulosin and Proscar is added. Congestive heart failure HLD COPD GERD Diabetes Full code Diet changed to dysphagia level 6 because patient does not have any dentures Eliquis will be sufficient for DVT prophylaxis Protonix OPD prophylaxis Attestations 2 Medical Necessity Statement*: Requires further hospitalization for management of nonischemic cardiomyopathy, congestive heart failure while LifeVest is set up an outpatient safe discharge planning is sought Diagnoses Cardiomyopathy I42.9 Acute kidney injury N17.9 Chest pain R07.9 Troponin level elevated R79.89 Generalized weakness R53.1 Orthostasis I95.1 Abnormal urinalysis R82.90 Inadequate social support Z65.8 Lung nodule R91.1
[2023-09-27] MEDS: tamsulosin 0.4 mg Capsule PO (20:31)
[2023-09-27] MEDS: nortriptyline 25 mg Capsule 50 MG PO (20:31)
[2023-09-28] VITALS (15 sets, daily range): BP systolic 104–132; BP diastolic 56–69; PULSE 60–71; RESP 16–22; TEMP 36.6–37; O2SAT 98–100
[2023-09-28] MEDS: ipratropium-albuterol 3 mL Neb INHALATION ×4 (02:33→20:53)
[2023-09-28] MEDS: metoprolol succinate ER (24 HR) 25 mg Tablet PO (05:30)
[2023-09-28] MEDS: aspirin 81 mg EC Tablet PO (05:30)
[2023-09-28] MEDS: finasteride 5 mg Tablet PO (05:30)
[2023-09-28] MEDS: montelukast sodium 10 mg Tablet PO (05:30)
[2023-09-28] MEDS: sucralfate 1 gm Tablet PO ×2 (05:30→17:58)
[2023-09-28] MEDS: roflumilast 500 mcg Tablet PO (05:30)
[2023-09-28 05:50] LABS: Hematocrit 29.8 % (37-53); Lymphocytes # 1.6 10^3/uL (0.8-4.8); Lymphocytes % 20.1 %; Mean Corpuscular HGB Conc 29.2 g/dL (30-55); Mean Corpuscular Hemoglobin 22.6 pg (27-33); Mean Corpuscular Volume 77.4 fl (82-101); Mean Platelet Volume 8.7 fL (7.4-10.4); Monocytes # 0.8 10^3/uL (0.2-0.9); Monocytes % 10.1 %; Neutrophils # 5.58 10^3/uL (1.8-7.7); Neutrophils % 69.4 %; Nucleated Red Blood Cells % 0 %; Platelet Count 246 10^3/cmm (157-399); Red Blood Count 3.85 10^6/uL (3.85-5.65); Red Cell Distribution Width 16.9 % (12.1-15.1); White Blood Count 8.04 10^3/uL (3.29-11.43)
[2023-09-28 06:13] LABS: Alanine Aminotransferase 28 U/L (0-41); Albumin Level 2.9 g/dL (3.5-5.2); Alkaline Phosphatase 77 U/L (40-130); Anion Gap 11.5 (5-19); Aspartate Amino Transferase 27 U/L (0-40); Blood Urea Nitrogen 42 mg/dL (8-23); Calcium 8.7 mg/dL (8.5-10.5); Carbon Dioxide 32 mmol/L (22-29); Chloride 103 mmol/L (98-107); Creatinine Clr Calc Pharmacy 68.7611; Globulin 2.5 g/dL (1.3-4.6); Glucose 132 mg/dL (65-115); Osmolality Calculated 306 mOsm/kg (285-295); Potassium 4.5 mmol/L (3.5-5.1); Sodium 142 mmol/L (136-145); Total Bilirubin 0.3 mg/dL (0.15-1.2); Total Protein 5.4 g/dL (6.6-8.7)
--- NOTE | 2023-09-28 06:47 | P.PN_ITS ---
Subjective 2 Subjective: Patient is doing well. No chest pain. Has lifevest placed. Vitals/I&O/Wt Last Vital Signs Temp 98.1 F 09/28/23 04:00 Pulse 60 09/28/23 06:00 Resp 17 09/28/23 04:00 BP 132/69 09/28/23 04:00 Pulse Ox 99 09/28/23 04:00 O2 Del Method Nasal Cannula 09/28/23 02:35 O2 Flow Rate 3 09/28/23 02:35 09/27/23 09/27/23 09/28/23 14:59 22:59 06:59 Intake Total 240 / 240 240 / 480 0 / 480 Output Total 800 / 800 Balance 240 / 240 -560 / -320 0 / -320 Weight last 48 hrs Weight 174 lb 6.4 oz Weight 171 lb 3.2 oz Weight 172 lb 8 oz Physical Exam 2 Narrative: GENERAL: Patient is alert, awake and oriented x3. [] NECK: No jugular vein distension. [] HEENT: No cyanosis. No icterus. No pallor. [] HEART: Regular S1 and S2. No murmur, rub or gallop. [] LUNGS: Clear to auscultate bilaterally. [] CENTRAL NERVOUS SYSTEM: Grossly nonfocal. 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 Entresto started. Lifevest received. No changes to medications for now. Thank you for involving us with care of this patient. We will continue to follow. Please call with questions. Attestations 2 Medical Necessity Statement*: Care expected to cross 2 midnights. Coding Level of Care Code Acute Code for g Fwd Diagnoses CHF (congestive heart failure) I50.9 Presence of cardiac pacemaker Z95.0 Acquired coronary artery fistula I25.41 Essential (primary) hypertension I10 Chest pain R07.9 Troponin level elevated R79.89 Cardiomyopathy I42.9
[2023-09-28] MEDS: pantoprazole DR 40 mg Tablet PO (08:53)
[2023-09-28] MEDS: apixaban 5 mg Tablet PO ×2 (08:53→17:58)
[2023-09-28] MEDS: spironolactone 25 mg Tablet PO (08:53)
[2023-09-28] MEDS: guaiFENesin 600 mg Tablet PO ×2 (08:53→17:58)
[2023-09-28] MEDS: predniSONE 5 mg Tablet PO ×2 (08:53→17:58)
[2023-09-28] MEDS: sacubitril/valsartan 24-26 mg Tablet 1 EACH PO ×2 (08:54→17:58)
[2023-09-28] MEDS: ferrous sulfate EC 325 mg Tablet PO (08:54)
[2023-09-28] MEDS: atorvastatin 40 mg Tablet PO (08:54)
[2023-09-28] MEDS: lactobacillus 1 Tablet 1 TAB PO ×2 (08:54→20:36)
[2023-09-28] MEDS: fluticasone nasal spray 16gm Btl 2 SPRAY INTRANASAL (08:58)
--- NOTE | 2023-09-28 09:33 | PC.CHAP ---
Pastoral Care Encounter/Spiritual Assessment Type of Contact [] Declined dry cell tester visit [] Patient/Family/Request visit [] Outpatient visit [] Follow-up visit [] Physician referral [] Code/Alert [] Routine visit [] Staff referral [] Actively dying [] Patient sleeping [] Family support [] [] Out of room [] Palliative care [] [x] Receiving care in room [] Pre-surgical visit [] Trauma [] Long length of stay [] ICU visit [] Other: Relational/Emotional Strength [] Patient feels connected with others/family/visitors/staff [] Distress [] Loneliness/isolation [] Abandonment Spirituality of Patient [] Person of Lynda [] Attends [employer] of their Lynda [] Believes in Prayer [] Reads Bible or Christianity materials [] There are Spiritual issues to be addressed [employer] Interventions [] Prayer [] Active listening [] Non-anxious presence [] Spiritual/emotional support [] Crisis/trauma care [] Spiritual counseling [] Bereavement support [] Provided bereavement packet [] Provided Bible/devotional materials [] Provided toy/stuffed animal, coloring book to patient or family member [] Provided Communion [] Anointing/[place] [] Salvation [] Completed spiritual assessment [] Other: Impact on Illness or Injury [] Angry [] Fearful [] Anxious [] Often cries [] Exhaustion [] Unable to work [] Unable to attend confucianist [] Unable to walk/stand [] Unable to read [] Unable to drive [] Unable to eat/drink [] Unable to sleep [] Unable to be with family [] Patient intubated [] Other: Summary Time spent with patient
--- NOTE | 2023-09-28 14:48 | P.PN_ITS ---
Subjective 2 Subjective: No acute vents overnight. Patient has remained hemodynamically stable and afebrile. On examination laying comfortably in bed. Denies any nausea, ting, headache. Vitals/I&O/Wt Last Vital Signs Temp 98.0 F 09/28/23 07:39 Pulse 63 09/28/23 13:28 Resp 16 09/28/23 13:20 BP 104/56 09/28/23 11:39 Pulse Ox 98 09/28/23 13:20 O2 Del Method Nasal Cannula 09/28/23 13:20 O2 Flow Rate 3 09/28/23 13:20 09/27/23 09/28/23 09/28/23 22:59 06:59 14:59 Intake Total 240 / 480 0 / 480 960 / 960 Output Total 800 / 800 Balance -560 / -320 0 / -320 960 / 960 Weight last 48 hrs Weight 79.107 kg Weight 77.655 kg Weight 78.245 kg Physical Exam 2 Const: COMMON NORMALS: patient oriented x3 and alert GENERAL APPEARANCE: c ooperative ORIENTATION/CONSCIOUSNESS: Yes awake HENMT: COMMON NORMALS: oropharynx normal OTHER: Edentulous. Neck/C-Spine: COMMON NORMALS: no JVD Chest: OTHER: L chest PPM Resp: COMMON NORMALS: normal respiratory effort and clear to auscultation bilaterally AUSCULTATION: clear to auscultation bilaterally Cardio: COMMON NORMALS: no JVD, regular rhythm, S1 normal heart sound present, S2 normal heart sound present and No murmurs present (Cardio) RHYTHM: regular rhythm HEART SOUNDS: S1 normal heart sound present and S2 normal heart sound present GI: COMMON NORMALS: Normal to inspection, nondistended, normoactive bowel sounds present, Soft to palpation and non-tender PALPATION: Yes Soft to palpation Extremity: COMMON NORMALS: no joint enlargement and no pedal edema Neuro: COMMON NORMALS: patient oriented x3 and moves all extremities S ENSORIUM/ORIENTATION: Yes alert Skin: COMMON NORMALS: no rashes or lesions noted GENERAL SKIN EXAM: no rashes or lesions noted Data 09/28/23 05:34 09/28/23 05:34 A&P Assessment and plan (1) Cardiomyopathy: Repeat echocardiogram done on this admission consistent with a EF of around 20%. Post angiogram showing nonobstructive CAD. Consistent with nonischemic cardiomyopathy. Strict input and output charting, daily weights. Medical reconciliation for uptitrating guideline directed medical therapy. Plan for LifeVest given low EF. Continue with metoprolol 25 mg oral daily. Add spironolactone 25 mg oral daily. Patient currently euvolemic. Hold off on Lasix for now. (2) Acute kidney injury: Present on admission. Most likely infection of cardiorenal syndrome. Resolving. Creatinine stable at 1.1. CT abdomen pelvis negative for obstructive nephropathy. Monitor electrolytes daily. Euvolemic for now. Holding off on Lasix. Adding spironolactone as above. Patient did undergo cardiac angiogram on 09/25. At risk for BRYANT. Will continue to monitor renal functions. Currently no electrolyte normality or anion gap abnormality. (3) Chest pain: Could be in setting of congestive heart failure. Normal coronaries on angiogram. Appreciate recent A1c and lipid panel. Continue baby aspirin 81 mg daily, home dose of statin. Metoprolol as above. (4) Troponin level elevated: As above. (5) Generalized weakness: Most likely in setting of congestive heart failure with severe cardiomyopathy and EF of 20%. Orthostatic positive on admission. Has resolved since increasing oral prednisone to 5 mg twice daily. Repeat orthostatic. Appreciate TSH and CPK levels. Appreciate PT evaluation. Given all of the above patient will benefit from SNF placement. Patient is agreeable. Case management working on the same. (6) Orthostasis: Possible adrenal insufficiency, long-term treatment with prednisone. Increased prednisone dose to 5 mg twice daily. Recheck orthostatics. I do not see other obvious medications contributing to orthostasis. Continue worsening of cardiomyopathy as above. (7) Abnormal urinalysis: Borderline urinalysis with elevated RBC 15-25, on CT does have some renal hypodensities, thought probably benign. Does have some nonobstructive nephrolithiasis likely responsible for his subclinical hematuria. However, does also have 5-10 WBC. Urine culture has been sent and pending. No antibiotics for now, as he had not really complained of urinary symptoms, follow-up. Was recently started on second prostate medication. No sign of obstruction. (8) Inadequate social support: Lives alone. Does not have family nearby, states that he does have a sister and a cousin, but would not want them to make decisions, although has not been that his will. The person listed in the chart is a caregiver, would not want them to make decisions on his behalf. In case anything is to be decided, states would want doctors to decide. (9) Lung nodule: Follow-up regarding lung nodule with primary provider. Plan Goals of care discussion: In case of severe condition unresponsive to treatment requiring life support without chance of recovery he would want 3 doctors to decide on discontinuation of care. PE: On Eliquis Colon cancer: Awaiting follow-up in [place] BPH: Recently had prostate medication and it looks like has been on tamsulosin and Proscar is added. Congestive heart failure HLD COPD GERD Diabetes Plan for the day: Patient has remained stable and afebrile. Continues to remain on 2 to 3 L of oxygen supplementation. Guideline directed therapy for heart failure is being uptitrated. Started on Entresto today. Monitor blood pressures. Monitor renal functions. For now patient is euvolemic. Hold off on any Lasix. Plan to discharge to SNF given significant heart failure, social discord. Patient has been accepted to SNF and is awaiting prior authorization. Full code Diet changed to dysphagia level 6 because patient does not have any dentures Eliquis will be sufficient for DVT prophylaxis Protonix OPD prophylaxis Attestations 2 Medical Necessity Statement*: Requires further hospitalization for management of acute decompensated heart failure while [place] directed medical therapy is uptitrated, safe discharge planning is sought Diagnoses Cardiomyopathy I42.9 Acute kidney injury N17.9 Chest pain R07.9 Troponin level elevated R79.89 Generalized weakness R53.1 Orthostasis I95.1 Abnormal urinalysis R82.90 Inadequate social support Z65.8 Lung nodule R91.1
[2023-09-28] MEDS: nortriptyline 25 mg Capsule 50 MG PO (20:36)
[2023-09-28] MEDS: tamsulosin 0.4 mg Capsule PO (20:36)
[2023-09-29] VITALS (22 sets, daily range): BP systolic 91–119; BP diastolic 43–56; PULSE 60–76; RESP 13–26; TEMP 36.1–37.1; O2SAT 98–100
[2023-09-29] MEDS: ipratropium-albuterol 3 mL Neb INHALATION ×4 (02:15→20:40)
[2023-09-29 03:57] LABS: Hematocrit 30.8 % (37-53); Lymphocytes % 14.1 %; Mean Corpuscular HGB Conc 28.6 g/dL (30-55); Mean Corpuscular Hemoglobin 22.6 pg (27-33); Mean Corpuscular Volume 79.2 fl (82-101); Mean Platelet Volume 9.1 fL (7.4-10.4); Monocytes # 0.8 10^3/uL (0.2-0.9); Monocytes % 10.9 %; Neutrophils # 5.16 10^3/uL (1.8-7.7); Neutrophils % 74.9 %; Nucleated Red Blood Cells % 0 %; Platelet Count 268 10^3/cmm (157-399); Red Blood Count 3.89 10^6/uL (3.85-5.65); Red Cell Distribution Width 17.2 % (12.1-15.1); White Blood Count 6.89 10^3/uL (3.29-11.43)
[2023-09-29 04:27] LABS: Alanine Aminotransferase 32 U/L (0-41); Albumin Level 2.9 g/dL (3.5-5.2); Alkaline Phosphatase 81 U/L (40-130); Anion Gap 12.1 (5-19); Aspartate Amino Transferase 27 U/L (0-40); Blood Urea Nitrogen 44 mg/dL (8-23); Calcium 8.7 mg/dL (8.5-10.5); Carbon Dioxide 31 mmol/L (22-29); Chloride 101 mmol/L (98-107); Globulin 2.5 g/dL (1.3-4.6); Glucose 170 mg/dL (65-115); Osmolality Calculated 303 mOsm/kg (285-295); Potassium 5.1 mmol/L (3.5-5.1); Sodium 139 mmol/L (136-145); Total Bilirubin 0.3 mg/dL (0.15-1.2); Total Protein 5.4 g/dL (6.6-8.7)
[2023-09-29] MEDS: finasteride 5 mg Tablet PO (05:01)
[2023-09-29] MEDS: montelukast sodium 10 mg Tablet PO (05:01)
[2023-09-29] MEDS: aspirin 81 mg EC Tablet PO (05:01)
[2023-09-29] MEDS: roflumilast 500 mcg Tablet PO (05:01)
[2023-09-29] MEDS: metoprolol succinate ER (24 HR) 25 mg Tablet PO (05:01)
[2023-09-29] MEDS: sucralfate 1 gm Tablet PO ×2 (05:02→18:54)
--- NOTE | 2023-09-29 08:48 | PM.PN ---
Subjective Subjective: Patient is stable. Feeling well. Vitals/I&O/Wt Last Vital Signs Temp 98.3 F 09/29/23 07:40 Pulse 60 09/29/23 08:00 Resp 18 09/29/23 08:00 BP 113/51 09/29/23 07:40 Pulse Ox 99 09/29/23 08:00 O2 Del Method Nasal Cannula 09/29/23 08:00 O2 Flow Rate 3 09/29/23 08:00 09/28/23 09/29/23 09/29/23 22:59 06:59 14:59 Intake Total 660 / 1620 480 / 2100 Output Total 400 / 400 Balance 660 / 1620 80 / 1700 Weight last 48 hrs Weight 180 lb 1.6 oz Weight 174 lb 6.4 oz Physical Exam Narrative: GENERAL: Patient is alert, awake and oriented x3. [] NECK: No jugular vein distension. [] HEENT: No cyanosis. No icterus. No pallor. [] HEART: Regular S1 and S2. No murmur, rub or gallop. [] LUNGS: Clear to auscultate bilaterally. [] CENTRAL NERVOUS SYSTEM: Grossly nonfocal. 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 Has received LifeVest. Continue current medications including beta-pippa, Entresto and spironolactone. Awainting placement to SNF Thank you for involving us with care of this patient. We will continue to follow. Please call with questions. Attestations Medical Necessity Statement*: Care expected to cross 2 midnights. Coding Level of Care Code Acute Code for [facility] Fwd Diagnoses CHF (congestive heart failure) I50.9 Presence of cardiac pacemaker Z95.0 Acquired coronary artery fistula I25.41 Essential (primary) hypertension I10 Chest pain R07.9 Troponin level elevated R79.89 Cardiomyopathy I42.9
[2023-09-29] MEDS: atorvastatin 40 mg Tablet PO (09:00)
[2023-09-29] MEDS: sacubitril/valsartan 24-26 mg Tablet 1 EACH PO ×2 (09:00→18:54)
[2023-09-29] MEDS: guaiFENesin 600 mg Tablet PO ×2 (09:01→18:54)
[2023-09-29] MEDS: predniSONE 5 mg Tablet PO ×2 (09:01→18:54)
[2023-09-29] MEDS: spironolactone 25 mg Tablet PO (09:01)
[2023-09-29] MEDS: ferrous sulfate EC 325 mg Tablet PO (09:01)
[2023-09-29] MEDS: pantoprazole DR 40 mg Tablet PO (09:01)
[2023-09-29] MEDS: apixaban 5 mg Tablet PO ×2 (09:01→18:54)
[2023-09-29] MEDS: lactobacillus 1 Tablet 1 TAB PO ×2 (09:16→18:54)
[2023-09-29] MEDS: fluticasone nasal spray 16gm Btl 2 SPRAY INTRANASAL (09:17)
--- NOTE | 2023-09-29 11:47 | PC.SOCIAL ---
IMM Updated Updated pt on IMM. No questions voiced. Provided pt a copy. Initialed, dated, & timed copy in chart.
--- NOTE | 2023-09-29 12:21 | P.PN_ITS ---
Subjective 2 Subjective: Patient had mildly soft blood pressures overnight. Did get all his antihypertensives. Blood pressure stable today morning. Patient denies any new complaints. Does not complain of any further difficulty in breathing. Saturating well on baseline oxygen supplementation. Vitals/I&O/Wt Last Vital Signs Temp 97.7 F 09/29/23 11:33 Pulse 68 09/29/23 11:33 Resp 20 H 09/29/23 11:33 BP 108/56 09/29/23 11:33 Pulse Ox 98 09/29/23 11:33 O2 Del Method Nasal Cannula 09/29/23 11:33 O2 Flow Rate 3 09/29/23 08:00 09/28/23 09/29/23 09/29/23 22:59 06:59 14:59 Intake Total 660 / 1620 480 / 2100 840 / 840 Output Total 400 / 400 Balance 660 / 1620 80 / 1700 840 / 840 Weight last 48 hrs Weight 81.692 kg Weight 79.107 kg Physical Exam 2 Const: COMMON NORMALS: patient oriented x3 and alert GENERAL APPEARANCE: c ooperative ORIENTATION/CONSCIOUSNESS: Yes awake HENMT: COMMON NORMALS: oropharynx normal OTHER: Edentulous. Neck/C-Spine: COMMON NORMALS: no JVD Chest: OTHER: L chest PPM Resp: COMMON NORMALS: normal respiratory effort and clear to auscultation bilaterally AUSCULTATION: clear to auscultation bilaterally Cardio: COMMON NORMALS: no JVD, regular rhythm, S1 normal heart sound present, S2 normal heart sound present and No murmurs present (Cardio) RHYTHM: regular rhythm HEART SOUNDS: S1 normal heart sound present and S2 normal heart sound present GI: COMMON NORMALS: Normal to inspection, nondistended, normoactive bowel sounds present, Soft to palpation and non-tender PALPATION: Yes Soft to palpation Extremity: COMMON NORMALS: no joint enlargement and no pedal edema Neuro: COMMON NORMALS: patient oriented x3 and moves all extremities S ENSORIUM/ORIENTATION: Yes alert Skin: COMMON NORMALS: no rashes or lesions noted GENERAL SKIN EXAM: no rashes or lesions noted Data 09/29/23 03:09 09/29/23 03:09 A&P Assessment and plan (1) Cardiomyopathy: Repeat echocardiogram done on this admission consistent with a EF of around 20%. Post angiogram showing nonobstructive CAD. Consistent with nonischemic cardiomyopathy. Strict input and output charting, daily weights. Medical reconciliation for uptitrating guideline directed medical therapy. Plan for LifeVest given low EF. Continue with metoprolol 25 mg oral daily. Add spironolactone 25 mg oral daily. Patient currently euvolemic. Hold off on Lasix for now. (2) Acute kidney injury: Present on admission. Most likely infection of cardiorenal syndrome. Resolving. Creatinine stable at 1.1. CT abdomen pelvis negative for obstructive nephropathy. Monitor electrolytes daily. Euvolemic for now. Holding off on Lasix. Adding spironolactone as above. Patient did undergo cardiac angiogram on 09/25. At risk for BRYANT. Will continue to monitor renal functions. Currently no electrolyte normality or anion gap abnormality. (3) Chest pain: Could be in setting of congestive heart failure. Normal coronaries on angiogram. Appreciate recent A1c and lipid panel. Continue baby aspirin 81 mg daily, home dose of statin. Metoprolol as above. (4) Troponin level elevated: As above. (5) Generalized weakness: Most likely in setting of congestive heart failure with severe cardiomyopathy and EF of 20%. Orthostatic positive on admission. Has resolved since increasing oral prednisone to 5 mg twice daily. Repeat orthostatic. Appreciate TSH and CPK levels. Appreciate PT evaluation. Given all of the above patient will benefit from SNF placement. Patient is agreeable. Case management working on the same. (6) Orthostasis: Possible adrenal insufficiency, long-term treatment with prednisone. Increased prednisone dose to 5 mg twice daily. Recheck orthostatics. I do not see other obvious medications contributing to orthostasis. Continue worsening of cardiomyopathy as above. (7) Abnormal urinalysis: Borderline urinalysis with elevated RBC 15-25, on CT does have some renal hypodensities, thought probably benign. Does have some nonobstructive nephrolithiasis likely responsible for his subclinical hematuria. However, does also have 5-10 WBC. Urine culture has been sent and pending. No antibiotics for now, as he had not really complained of urinary symptoms, follow-up. Was recently started on second prostate medication. No sign of obstruction. (8) Inadequate social support: Lives alone. Does not have family nearby, states that he does have a sister and a cousin, but would not want them to make decisions, although has not been that his will. The person listed in the chart is a caregiver, would not want them to make decisions on his behalf. In case anything is to be decided, states would want doctors to decide. (9) Lung nodule: Follow-up regarding lung nodule with primary provider. Plan Goals of care discussion: In case of severe condition unresponsive to treatment requiring life support without chance of recovery he would want 3 doctors to decide on discontinuation of care. PE: On Eliquis Colon cancer: Awaiting follow-up in [place] BPH: Recently had prostate medication and it looks like has been on tamsulosin and Proscar is added. Congestive heart failure HLD COPD GERD Diabetes Plan for the day: Continue with current dose of Entresto, spironolactone, metoprolol. Target blood pressure less than 140/90 mmHg with mean over 65. Patient remains euvolemic. Continue to hold off on Lasix for now. Lab holiday tomorrow. Awaiting prior authorization for SNF placement. Full code Diet changed to dysphagia level 6 because patient does not have any dentures Eliquis will be sufficient for DVT prophylaxis Protonix OPD prophylaxis Attestations 2 Medical Necessity Statement*: Requires further hospitalization for management of congestive heart failure while safe discharge planning to SNF is awaited Diagnoses Cardiomyopathy I42.9 Acute kidney injury N17.9 Chest pain R07.9 Troponin level elevated R79.89 Generalized weakness R53.1 Orthostasis I95.1 Abnormal urinalysis R82.90 Inadequate social support Z65.8 Lung nodule R91.1
[2023-09-29] MEDS: tamsulosin 0.4 mg Capsule PO (21:52)
[2023-09-29] MEDS: nortriptyline 25 mg Capsule 50 MG PO (21:52)
[2023-09-30] VITALS (31 sets, daily range): BP systolic 108–122; BP diastolic 47–63; PULSE 60–74; RESP 14–31; TEMP 36.5–36.7; O2SAT 99–100
[2023-09-30] MEDS: ipratropium-albuterol 3 mL Neb INHALATION ×4 (02:08→20:03)
[2023-09-30] MEDS: aspirin 81 mg EC Tablet PO (06:34)
[2023-09-30] MEDS: roflumilast 500 mcg Tablet PO (06:34)
[2023-09-30] MEDS: finasteride 5 mg Tablet PO (06:34)
[2023-09-30] MEDS: montelukast sodium 10 mg Tablet PO (06:34)
[2023-09-30] MEDS: metoprolol succinate ER (24 HR) 25 mg Tablet PO (06:34)
[2023-09-30] MEDS: sucralfate 1 gm Tablet PO ×2 (06:34→17:19)
--- NOTE | 2023-09-30 07:32 | P.PN_ITS ---
Subjective 2 Subjective: Patient is doing well. no chest pain. Vitals/I&O/Wt Last Vital Signs Temp 97.9 F 09/30/23 07:08 Pulse 60 09/30/23 07:08 Resp 19 H 09/30/23 07:08 BP 112/48 09/30/23 07:08 Pulse Ox 100 09/30/23 07:08 O2 Del Method Nasal Cannula 09/30/23 07:08 O2 Flow Rate 3 09/30/23 02:08 09/29/23 09/30/23 09/30/23 22:59 06:59 14:59 Intake Total 777 / 2217 400 / 2617 Balance 777 / 2217 400 / 2617 Weight last 48 hrs Weight 186 lb Weight 186 lb Weight 180 lb 1.6 oz Physical Exam 2 Narrative: GENERAL: Patient is alert, awake and oriented x3. [] NECK: No jugular vein distension. [] HEENT: No cyanosis. No icterus. No pallor. [] HEART: Regular S1 and S2. No murmur, rub or gallop. [] LUNGS: Clear to auscultate bilaterally. [] CENTRAL NERVOUS SYSTEM: Grossly nonfocal. 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 He is tolerating his medical therapy well. He will be discharged to SNF with [facility]. Plan for outpatient echo in 3 months to determine need for ICD upgrade Thank you for involving us with care of this patient. We will continue to follow. Please call with questions. Attestations 2 Medical Necessity Statement*: Care expected to cross 2 midnights. Coding Level of Care Code Acute Code for g Fwd Diagnoses CHF (congestive heart failure) I50.9 Presence of cardiac pacemaker Z95.0 Acquired coronary artery fistula I25.41 Essential (primary) hypertension I10 Chest pain R07.9 Troponin level elevated R79.89 Cardiomyopathy I42.9
[2023-09-30] MEDS: atorvastatin 40 mg Tablet PO (08:31)
[2023-09-30] MEDS: apixaban 5 mg Tablet PO ×2 (08:31→17:19)
[2023-09-30] MEDS: predniSONE 5 mg Tablet PO ×2 (08:31→17:19)
[2023-09-30] MEDS: guaiFENesin 600 mg Tablet PO ×2 (08:32→17:19)
[2023-09-30] MEDS: ferrous sulfate EC 325 mg Tablet PO (08:32)
[2023-09-30] MEDS: sacubitril/valsartan 24-26 mg Tablet 1 EACH PO ×2 (08:32→17:19)
[2023-09-30] MEDS: lactobacillus 1 Tablet 1 TAB PO ×2 (08:32→17:19)
[2023-09-30] MEDS: fluticasone nasal spray 16gm Btl 2 SPRAY INTRANASAL (08:32)
[2023-09-30] MEDS: pantoprazole DR 40 mg Tablet PO (08:32)
[2023-09-30] MEDS: spironolactone 25 mg Tablet PO (08:32)
--- NOTE | 2023-09-30 13:08 | P.PN_ITS ---
Subjective 2 Subjective: No acute events overnight. Patient's blood pressure better controlled. States he is not having difficulty in breathing. He is getting frustrated being in the hospital while waiting for the prior authorization for transfer to SNF. As per him he would rather go home if he is not going to shelter by the weekend. Continues to saturate well on baseline oxygen supplementation. No difficulty in breathing. Vitals/I&O/Wt Last Vital Signs Temp 97.8 F 09/30/23 11:40 Pulse 64 09/30/23 11:40 Resp 20 H 09/30/23 11:40 BP 114/58 09/30/23 11:40 Pulse Ox 100 09/30/23 11:40 O2 Del Method Nasal Cannula 09/30/23 11:40 O2 Flow Rate 3 09/30/23 08:00 09/29/23 09/30/23 09/30/23 22:59 06:59 14:59 Intake Total 777 / 2217 400 / 2617 1320 / 1320 Balance 777 / 2217 400 / 2617 1320 / 1320 Weight last 48 hrs Weight 84.368 kg Weight 84.368 kg Weight 81.692 kg Physical Exam 2 Const: COMMON NORMALS: patient oriented x3 and alert GENERAL APPEARANCE: c ooperative ORIENTATION/CONSCIOUSNESS: Yes awake HENMT: COMMON NORMALS: oropharynx normal OTHER: Edentulous. Neck/C-Spine: COMMON NORMALS: no JVD Chest: OTHER: L chest PPM Resp: COMMON NORMALS: normal respiratory effort and clear to auscultation bilaterally AUSCULTATION: clear to auscultation bilaterally Cardio: COMMON NORMALS: no JVD, regular rhythm, S1 normal heart sound present, S2 normal heart sound present and No murmurs present (Cardio) RHYTHM: regular rhythm HEART SOUNDS: S1 normal heart sound present and S2 normal heart sound present GI: COMMON NORMALS: Normal to inspection, nondistended, normoactive bowel sounds present, Soft to palpation and non-tender PALPATION: Yes Soft to palpation Extremity: COMMON NORMALS: no joint enlargement and no pedal edema Neuro: COMMON NORMALS: patient oriented x3 and moves all extremities S ENSORIUM/ORIENTATION: Yes alert Skin: COMMON NORMALS: no rashes or lesions noted GENERAL SKIN EXAM: no rashes or lesions noted Data 09/29/23 03:09 07/10/24 03:09 A&P Assessment and plan (1) Cardiomyopathy: Repeat echocardiogram done on this admission consistent with a EF of around 20%. Post angiogram showing nonobstructive CAD. Consistent with nonischemic cardiomyopathy. Strict input and output charting, daily weights. Medical reconciliation for uptitrating guideline directed medical therapy. Plan for LifeVest given low EF. Continue with metoprolol 25 mg oral daily. Add spironolactone 25 mg oral daily. Patient currently euvolemic. Hold off on Lasix for now. (2) Acute kidney injury: Present on admission. Most likely infection of cardiorenal syndrome. Resolving. Creatinine stable at 1.1. CT abdomen pelvis negative for obstructive nephropathy. Monitor electrolytes daily. Euvolemic for now. Holding off on Lasix. Adding spironolactone as above. Patient did undergo cardiac angiogram on 09/25. At risk for BRYANT. Will continue to monitor renal functions. Currently no electrolyte normality or anion gap abnormality. (3) Chest pain: Could be in setting of congestive heart failure. Normal coronaries on angiogram. Appreciate recent A1c and lipid panel. Continue baby aspirin 81 mg daily, home dose of statin. Metoprolol as above. (4) Troponin level elevated: As above. (5) Generalized weakness: Most likely in setting of congestive heart failure with severe cardiomyopathy and EF of 20%. Orthostatic positive on admission. Has resolved since increasing oral prednisone to 5 mg twice daily. Repeat orthostatic. Appreciate TSH and CPK levels. Appreciate PT evaluation. Given all of the above patient will benefit from SNF placement. Patient is agreeable. Case management working on the same. (6) Orthostasis: Possible adrenal insufficiency, long-term treatment with prednisone. Increased prednisone dose to 5 mg twice daily. Recheck orthostatics. I do not see other obvious medications contributing to orthostasis. Continue worsening of cardiomyopathy as above. (7) Abnormal urinalysis: Borderline urinalysis with elevated RBC 15-25, on CT does have some renal hypodensities, thought probably benign. Does have some nonobstructive nephrolithiasis likely responsible for his subclinical hematuria. However, does also have 5-10 WBC. Urine culture has been sent and pending. No antibiotics for now, as he had not really complained of urinary symptoms, follow-up. Was recently started on second prostate medication. No sign of obstruction. (8) Inadequate social support: Lives alone. Does not have family nearby, states that he does have a sister and a cousin, but would not want them to make decisions, although has not been that his will. The person listed in the chart is a caregiver, would not want them to make decisions on his behalf. In case anything is to be decided, states would want doctors to decide. (9) Lung nodule: Follow-up regarding lung nodule with primary provider. Plan Goals of care discussion: In case of severe condition unresponsive to treatment requiring life support without chance of recovery he would want 3 doctors to decide on discontinuation of care. PE: On Eliquis Colon cancer: Awaiting follow-up in [place] BPH: Recently had prostate medication and it looks like has been on tamsulosin and Proscar is added. Congestive heart failure HLD COPD GERD Diabetes Plan for the day: Blood pressure is better controlled. Continue with current medications of Entresto spironolactone metoprolol. LifeVest fitted. No new complaints. Awaiting prior authorization for transfer to SNF. Repeat labs with CBC and CMP in AM. Discharge plan: Plan to discharge home versus SNF tomorrow depending on the prior authorization. Patient is getting frustrated being in hospital waiting for prior authorization. Patient is improving from breathing status. Full code Diet changed to dysphagia level 6 because patient does not have any dentures Eliquis will be sufficient for DVT prophylaxis Protonix OPD prophylaxis Attestations 2 Medical Necessity Statement*: Requires further hospitalization further adjustment of guideline directed medical therapy while safe discharge planning to SNF is sought and prior authorization is awaited Diagnoses Cardiomyopathy I42.9 Acute kidney injury N17.9 Chest pain R07.9 Troponin level elevated R79.89 Generalized weakness R53.1 Orthostasis I95.1 Abnormal urinalysis R82.90 Inadequate social support Z65.8 Lung nodule R91.1
[2023-09-30 14:02] LABS: Lymphocytes # 1.2 10^3/uL (0.8-4.8); Lymphocytes % 12.4 %; Mean Corpuscular HGB Conc 28.7 g/dL (30-55); Mean Corpuscular Hemoglobin 22.7 pg (27-33); Mean Corpuscular Volume 79.2 fl (82-101); Mean Platelet Volume 8.9 fL (7.4-10.4); Monocytes % 10.2 %; Neutrophils # 7.43 10^3/uL (1.8-7.7); Nucleated Red Blood Cells % 0 %; Platelet Count 258 10^3/cmm (157-399); Red Blood Count 3.79 10^6/uL (3.85-5.65); Red Cell Distribution Width 17.6 % (12.1-15.1); White Blood Count 9.66 10^3/uL (3.29-11.43)
[2023-09-30] MEDS: tamsulosin 0.4 mg Capsule PO (20:30)
[2023-09-30] MEDS: nortriptyline 25 mg Capsule 50 MG PO (20:30)
[2023-10-01] VITALS (23 sets, daily range): BP systolic 101–122; BP diastolic 42–62; PULSE 60–70; RESP 16–22; TEMP 36.6–36.7; O2SAT 94–100
[2023-10-01] MEDS: ipratropium-albuterol 3 mL Neb INHALATION ×3 (01:36→14:35)
[2023-10-01] MEDS: montelukast sodium 10 mg Tablet PO (05:55)
[2023-10-01] MEDS: metoprolol succinate ER (24 HR) 25 mg Tablet PO (05:55)
[2023-10-01] MEDS: aspirin 81 mg EC Tablet PO (05:55)
[2023-10-01] MEDS: finasteride 5 mg Tablet PO (05:55)
[2023-10-01] MEDS: roflumilast 500 mcg Tablet PO (05:55)
[2023-10-01 05:56] LABS: Alanine Aminotransferase 30 U/L (0-41); Albumin Level 2.8 g/dL (3.5-5.2); Alkaline Phosphatase 81 U/L (40-130); Anion Gap 12.9 (5-19); Aspartate Amino Transferase 22 U/L (0-40); Blood Urea Nitrogen 40 mg/dL (8-23); Calcium 8.6 mg/dL (8.5-10.5); Carbon Dioxide 24 mmol/L (22-29); Chloride 109 mmol/L (98-107); Creatinine Clr Calc Pharmacy 70.6447; Globulin 2.3 g/dL (1.3-4.6); Glucose 165 mg/dL (65-115); Osmolality Calculated 305 mOsm/kg (285-295); Potassium 4.9 mmol/L (3.5-5.1); Sodium 141 mmol/L (136-145); Total Bilirubin 0.2 mg/dL (0.15-1.2); Total Protein 5.1 g/dL (6.6-8.7)
[2023-10-01] MEDS: sucralfate 1 gm Tablet PO (05:56)
--- NOTE | 2023-10-01 08:44 | PM.PN ---
Vitals/I&O/Wt Last Vital Signs Temp 97.8 F 10/01/23 08:00 Pulse 60 10/01/23 08:00 Resp 19 H 10/01/23 04:00 BP 122/62 10/01/23 08:00 Pulse Ox 100 10/01/23 08:00 O2 Del Method Nasal Cannula 10/01/23 08:00 O2 Flow Rate 3 10/01/23 01:36 09/30/23 10/01/23 10/01/23 22:59 06:59 14:59 Intake Total 1200 / 2520 300 / 2820 Output Total 400 / 400 Balance 1200 / 2520 -100 / 2420 Weight last 48 hrs Weight 186 lb Weight 186 lb Weight 186 lb Weight 186 lb Data 09/30/23 13:42 10/01/23 05:03 Coding Level of Care Code Acute Code for Chg Fwd
[2023-10-01] MEDS: guaiFENesin 600 mg Tablet PO (09:18)
[2023-10-01] MEDS: fluticasone nasal spray 16gm Btl 2 SPRAY INTRANASAL (09:18)
[2023-10-01] MEDS: sacubitril/valsartan 24-26 mg Tablet 1 EACH PO (09:18)
[2023-10-01] MEDS: ferrous sulfate EC 325 mg Tablet PO (09:18)
[2023-10-01] MEDS: lactobacillus 1 Tablet 1 TAB PO (09:19)
[2023-10-01] MEDS: apixaban 5 mg Tablet PO (09:19)
[2023-10-01] MEDS: spironolactone 25 mg Tablet PO (09:19)
[2023-10-01] MEDS: pantoprazole DR 40 mg Tablet PO (09:19)
[2023-10-01] MEDS: predniSONE 5 mg Tablet PO (09:19)
[2023-10-01] MEDS: atorvastatin 40 mg Tablet PO (09:19)
--- NOTE | 2023-10-01 11:06 | PC.SOCIAL ---
IMM Updated Updated pt on IMM. No questions voiced. Provided pt a copy. Initialed, dated, & timed copy in chart.
--- NOTE | 2023-10-01 12:10 | PM.DCS ---
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 He has had more difficulty walking. He uses a walker. He reports that he has been getting more weak when he is trying to stand this is also associated with nausea. He has had poor appetite and poor oral intake over the last several days. He reports he previously was getting some feeling of indigestion in his left-sided chest but today was also having some pain. He has been feeling hot. With regards to his medications, the only difference he states is that he was recently started on a prostate medication. In ER his blood pressure is slightly soft 110/74, mild leukocytosis noted 5.67, hypokalemia 2.9, as well as NINOSKA, creatinine 1.4, BUN 67. His troponin is elevated to about 8 times upper normal limit. UA with 15-25 RBC, 5-[address] abdomen pelvis was obtained, without acute abnormality, incidental findings including nonobstructing renal collecting system stones, hypodense lesions too small to characterize probably benign representing cysts. As well as liver infiltration and cysts. Hospital Course Hospital Course Patient was admitted to the hospital further evaluation and management of acute kidney injury, generalized weakness. On admission he was found to be positive for orthostatics. He is also found to be having non-ST elevation IN with elevated troponins. He was found to be in congestive heart failure for which she was started on IV diuretics. Given concerns for mild adrenal insufficiency the dose of home prednisone was increased to 5 mg twice daily. Patient responded well to the diuresis and his renal functions resolved. Echocardiogram was done which showed an new EF of 15 to 20% with severe global LV hypokinesia. Cardiology was consulted. After stabilization of renal function she underwent cardiac angiogram on 09/25 which showed patent coronary arteries. His medications were uptitrated as per guideline directions for congestive heart failure. Given poor social support, severe generalized weakness on admission transfer to SNF was sought. Patient has been awaiting prior authorization from insurance regarding the same. His hospitalization has also been prolonged as he has been waiting for authorization. Patient has been on room air and has been doing better with physical therapy. As patient has been waiting for authorization for last few days, improving with physical therapy, growing frustrated while waiting for authorization he has been discharged in hemodynamically stable condition back home on adjusted medications. He has been counseled in detail regarding lifestyle modifications for congestive heart failure. He is to follow-up with cardiology team on set appointment and with a primary care provider within next 1 week. Home health has been arranged. Physical Exam Const: COMMON NORMALS: patient oriented x3 and alert GENERAL APPEARANCE: cooperative ORIENTATION/CONSCIOUSNESS: Yes awake HENMT: COMMON NORMALS: oropharynx normal OTHER: Edentulous. Neck/C-Spine: COMMON NORMALS: no JVD Chest: OTHER: L chest PPM Resp: COMMON NORMALS: normal respiratory effort and clear to auscultation bilaterally AUSCULTATION: clear to auscultation bilaterally Cardio: COMMON NORMALS: no JVD, regular rhythm, S1 normal heart sound present, S2 normal heart sound present and No murmurs present (Cardio) RHYTHM: regular rhythm HEART SOUNDS: S1 normal heart sound present and S2 normal heart sound present GI: COMMON NORMALS: Normal to inspection, nondistended, normoactive bowel sounds present, Soft to palpation and non-tender PALPATION: Yes Soft to palpation Extremity: COMMON NORMALS: no joint enlargement and no pedal edema Neuro: COMMON NORMALS: patient oriented x3 and moves all extremities SENSORIUM/ORIENTATION: Yes alert Skin: COMMON NORMALS: no rashes or lesions noted GENERAL SKIN EXAM: no rashes or lesions noted Discharge Data Studies Completed and Pending Completed Studies During Hospitalization Category Date Time Status CT abdomen pelvis w con* [id number] Stat Cat Scan 09/23/23 12:[address] head wo con* [id number] Stat Cat Scan 09/23/23 12:44 Completed CXRP [XR chest 1V portable [id number]] Routine Exams 09/25/23 19:01 Completed XR chest 1V portable [id number] Stat Exams 09/23/23 12:44 Completed XR hip RT 2-3V wo/w pel* [id number] Stat Exams 09/23/23 12:44 Completed CV. 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 No acute abdominopelvic pathology. 2. Incidental findings as above. COMMENTS: Consistent with the [employer]'s Incidental Findings Committee white paper (J Am Kellen Radiol 2018): Any incidental renal lesion less than 1 cm or classified as too small to characterize, or any incidental cystic renal lesion characterized as simple-appearing, is likely benign. No follow-up imaging is recommended for these lesions per consensus recommendations based on imaging criteria. REFERENCES: Noé FENG, et al. Management of Incidental Adrenal Masses: A White Paper of the ACR Incidental Findings Committee. J Am Kellen Radiol. 2017;14(8):5631-[address]45. Head CT 09/23/23 12:44 IMPRESSION: No acute intracranial abnormality. Hip/Pelvis X-Ray 09/23/23 12:44 IMPRESSION: No acute skeletal pathology. Chest X-Ray 09/25/23 19:01 IMPRESSION: 1. No definite pneumonia or CHF. 2. Other findings discussed above. Echocardiogram: CONCLUSIONS Limited echocardiogram performed to assess LV systolic function LV systolic function is severely reduced with EF of 15-20%. Severe global hypokinesis. Compared to prior echocardiogram from 06/2023, LV systolic function has decreased further. Jose Mendiola MD (Electronically Signed) Final Date: 23 September 2023 20:30 Laboratory Results WBC 9.66 10^3/uL (3.29-11.43) 09/30/23 13:42 RBC 3.79 10^6/uL (3.85-5.65) L 09/30/23 13:42 Hgb 8.60 g/dL (11.27-16.99) L 09/30/23 13:42 Hct 30.0 % (37-53) L 09/30/23 13:42 MCV 79.2 fl (82-101) L 09/30/23 13:42 MCH 22.7 pg (27-33) L 09/30/23 13:42 MCHC 28.7 g/dL (30-55) L 09/30/23 13:42 RDW 17.6 % (12.1-15.1) H 09/30/23 13:42 Plt Count 258 10^3/cmm (157-399) 09/30/23 13:42 MPV 8.9 fL (7.4-10.4) 09/30/23 13:42 Neut % (Auto) 77.0 % 09/30/23 13:42 Lymph % (Auto) 12.4 % 09/30/23 13:42 [place] % (Auto) 10.2 % 09/30/23 13:42 Eos % (Auto) 0.0 % 09/30/23 13:42 Baso % (Auto) 0.0 % 09/30/23 13:42 Neut # (Auto) 7.43 10^3/uL (1.8-7.7) 09/30/23 13:42 Lymph # (Auto) 1.2 10^3/uL (0.8-4.8) 09/30/23 13:42 [place] # (Auto) 1.0 10^3/uL (0.2-0.9) H 09/30/23 13:42 Eos # (Auto) 0.0 10^3/uL (0.0-0.8) 09/30/23 13:42 Baso # (Auto) 0.0 10^3/uL (0.0-0.1) 09/30/23 13:42 Nucleated RBC % (auto) 0 % 09/30/23 13:42 Nucleated RBCs # 0.0 /100WBC 09/30/23 13:42 Sodium 141 mmol/L (136-145) 10/01/23 05:03 Potassium 4.9 mmol/L (3.5-5.1) 10/01/23 05:03 Chloride 109 mmol/L (98-107) H 10/01/23 05:03 Carbon Dioxide 24 mmol/L (22-29) 10/01/23 05:03 Anion Gap 12.9 (5-19) 10/01/23 05:03 BUN 40 mg/dL (8-23) H 10/01/23 05:03 Creatinine 0.9 mg/dL (0.7-1.2) 10/01/23 05:03 GFR Calculation Not Reportable 10/01/23 05:03 Glucose 165 mg/dL (65-115) H 10/01/23 05:03 Calculated Osmolality 305 mOsm/kg (285-295) H 10/01/23 05:03 Calcium 8.6 mg/dL (8.5-10.5) 10/01/23 05:03 Magnesium 2.5 mg/dL (1.7-2.3) H 09/23/23 13:01 Total Bilirubin 0.2 mg/dL (0.15-1.2) 10/01/23 05:03 AST 22 U/L (0-40) 10/01/23 05:03 ALT 30 U/L (0-41) 10/01/23 05:03 Alkaline Phosphatase 81 U/L (40-130) 10/01/23 05:03 Creatine Kinase 111 U/L (39-308) 09/23/23 19:01 Troponin T Baseline 117 ng/L (0-15) H* 09/23/23 13:01 Troponin T 120 Minute 107.5 ng/L (0-15) H 09/23/23 14:49 Delta Troponin T -9.5 ABS# (0-10) L 09/23/23 14:49 Troponin T Hi Sens 6Hr 105.7 ng/L (0-15) H 09/23/23 19:01 Troponin T Hi Sens 6Hr Delta -11.3 ng/L (0-12) L 09/23/23 19:01 Total Protein 5.1 g/dL (6.6-8.7) L 10/01/23 05:03 Albumin 2.8 g/dL (3.5-5.2) L 10/01/23 05:03 Globulin 2.3 g/dL (1.3-4.6) 10/01/23 05:03 TSH 2.10 uIU/mL (0.27-4.20) 09/23/23 13:01 Urine Color Yellow (Yellow) 09/23/23 13:04 Urine Appearance Clear (CLEAR) 09/23/23 13:04 Urine pH 5 (5-7) 09/23/23 13:04 Ur Specific [place] 1.015 (1.005-1.030) 09/23/23 13:04 Urine Protein Neg (Negative) 09/23/23 13:04 Urine Glucose (UA) Norm (Normal) 09/23/23 13:04 Urine Ketones Negative (Negative) 09/23/23 13:04 Urine Blood 3+ (Negative) H 09/23/23 13:04 Urine Nitrate Negative (Negative) 09/23/23 13:04 Urine Bilirubin Neg (Negative) 09/23/23 13:04 Urine Urobilinogen Neg mg/dL (Negative) 09/23/23 13:04 Ur Leukocyte Esterase Negative (Negative) 09/23/23 13:04 Urine RBC 15-25 /hpf (0-2) H 09/23/23 13:04 Urine WBC 5-10 /hpf (0-5) H 09/23/23 13:04 Ur Squamous Epith Cells 0-4 /hpf (0-5) H 09/23/23 13:04 Amorphous Sediment Not Reportable 09/23/23 13:04 Urine Bacteria Trace /hpf (NONE) 09/23/23 13:04 Hyaline Casts 5-10 /lpf H 09/23/23 13:04 Urine Mucus Trace /hpf 09/23/23 13:04 Adenovirus (PCR) Not detected (NOT DETECT) 09/25/23 19:40 C. pneumoniae DNA (PCR) Not detected (NOT DETECT) 09/25/23 19:40 Coronavirus 229E (PCR) Not detected (NOT DETECT) 09/25/23 19:40 Human Metapneumovir PCR Not detected (NOT DETECT) 09/25/23 19:40 Influenza A (H1) PCR Not detected (NOT DETECT) 09/25/23 19:40 Influ A (H1/09) PCR Not detected (NOT DETECT) 09/25/23 19:40 Influenza A (H3) PCR Not detected (NOT DETECT) 09/25/23 19:40 Influenza Type A (PCR) Not detected (NOT DETECT) 09/25/23 19:40 Influenza Type B (PCR) Not detected (NOT DETECT) 09/25/23 19:40 M. pneumoniae (PCR) Not detected (NOT DETECT) 09/25/23 19:40 Parainfluenza 1 (PCR) Not detected (NOT DETECT) 09/25/23 19:40 Parainfluenza 2 (PCR) Not detected (NOT DETECT) 09/25/23 19:40 Parainfluenza 3 (PCR) Not detected (NOT DETECT) 09/25/23 19:40 Parainfluenza 4 (PCR) Not detected (NOT DETECT) 09/25/23 19:40 RSV Type A (PCR) Not detected (NOT DETECT) 09/25/23 19:40 RSV Type B (PCR) Not detected (NOT DETECT) 09/25/23 19:40 Entero/Rhino (PCR) Not detected (NOT DETECT) 09/25/23 19:40 SARS-CoV-2 (PCR) Not detected (NOT DETECT) 09/25/23 19:40 Vitals Last Vital Signs Temp 97.8 F 10/01/23 08:00 Pulse 65 10/01/23 09:23 Resp 16 10/01/23 09:23 BP 122/62 10/01/23 08:00 Pulse Ox 99 10/01/23 09:23 O2 Del Method Nasal Cannula 10/01/23 09:23 O2 Flow Rate 3 10/01/23 09:23 Discharge Plan Discharge Patient Disposition: Home Condition: Stable Prescriptions: New spironolactone 25 mg Tablet 25 mg PO DAILY Qty: 30 0RF Entresto 24-26 mg Tablet 1 tab PO BID Qty: 60 0RF Continued (DME) Easy Touch Safety Lancets 32 gauge misc See Rx Instructions .Route Qty: 100 2RF Rx Instructions: use 3 times day as needed (DME) pen needle, diabetic [BD Ultra-Fine Domi Pen Needle] 32 gauge x 5/32 needle See Rx Instructions .ROUTE .MEDSUPPLY Qty: 100 5RF Rx Instructions: 3 times day as needed (DME) Easy Touch BluLink Test Strip Strip See Rx Instructions .Route Qty: 50 5RF Rx Instructions: As directed Fasenra Pen 30 mg/mL auto-injector 30 mg SUBCUT .8 weeks Qty: 1 6RF Hold Instructions: Resume on 07/19/23. Rx Instructions: maintenance dose Eliquis 5 mg tablet 5 mg PO BID Qty: 60 2RF albuterol sulfate [ProAir HFA] 90 mcg/actuation HFA aerosol inhaler 2 puff INHALATION Q4H PRN (Reason: shortness of breath or wheezing) Qty: 1 2RF Adult Low Dose Aspirin 81 mg tablet,delayed release (DR/EC) 81 mg PO QAM Qty: 30 5RF Breztri Aerosphere 160-9-4.8 mcg/actuation HFA aerosol inhaler 2 inh inhalation BID Qty: 10.7 2RF fluticasone propionate 50 mcg/actuation spray,suspension 2 spray INTRANASAL DAILY Qty: 9.9 2RF ipratropium-albuterol 0.5 mg-3 mg(2.5 mg base)/3 mL solution for nebulization 3 ml inhalation Q4H PRN (Reason: shortness of breath or wheezing) Qty: 300 2RF levocetirizine 5 mg tablet 5 mg PO DAILY Qty: 90 0RF metoprolol succinate 25 mg tablet extended release 24 hr 25 mg PO QAM Qty: 90 0RF Rx Instructions: note dose decrease if heart less 60 use 1/2 tablet montelukast 10 mg tablet 10 mg PO QAM Qty: 90 0RF nortriptyline 50 mg capsule 50 mg PO BEDTIME Qty: 30 2RF omeprazole 40 mg capsule,delayed release(DR/EC) 40 mg PO QAM Qty: 30 2RF Daliresp 500 mcg tablet 500 mcg PO QAM Qty: 30 2RF rosuvastatin 40 mg tablet 40 mg PO DAILY 30 Days Qty: 30 2RF semaglutide 0.25 mg or 0.5 mg (2 mg/3 mL) pen injector 0.25 mg SUBCUT Q7D Qty: 3 2RF Rx Instructions: on wednesday sucralfate [Carafate] 1 gram tablet 1 g PO BID Qty: 60 2RF Flomax 0.4 mg capsule 0.4 mg PO BEDTIME Qty: 30 2RF magnesium hydroxide [Milk of Magnesia] 400 mg/5 mL suspension 15 ml PO DAILY PRN (Reason: constipation) Qty: 355 2RF ferrous sulfate 324 mg (65 mg iron) tablet,delayed release (DR/EC) 324 mg PO DAILY Qty: 30 1RF (DME) Commode Chair E0163 See Rx Instructions .Route .MEDSUPPLY Qty: 1 0RF Rx Instructions: As directed ascorbic acid (vitamin C) [Vitamin C] 500 mg Tablet 500 mg PO DAILY cinnamon bark [Cinnamon] 500 mg Capsule 500 mg PO DAILY Probiotic Blend 2 billion cell-50 mg Capsule 1 cap PO BID Rx Instructions: give with meal/snack omega-3 fatty acids 1,000 mg Capsule 1,000 mg PO BID Proscar 5 mg tablet 5 mg PO QAM Changed furosemide 40 mg tablet 40 mg PO BID PRN (Reason: Shortness of breath) Qty: 60 2RF prednisone 5 mg tablet 5 mg PO BID Qty: 30 3RF Discharge Orders: Discharge Order (Routine); Ordered 10/01/23 Ordered By: Feliz Perea Referrals: Jordy Singer FNP-C [Primary Care Provider] - 4-7 days Marisel Dow FNP [Nurse Practitioner] - 10/20/23 1:00 pm Discharge Diet: Cardiac and Diabetic Discharge Activity: Resume usual activity and Increase activity as tolerated Patient Instructions: Heart Failure (DC), Coronary Angioplasty (DC), CHF Stoplight, Opioid Safety, Post Angiogram Home Care Instructions Activity Restrictions/Additional Instructions: Restrict fluid intake to less than 1500 cc, salt intake to less than 2 g daily. Advised to check his weight daily at home. Is advised that weight today would be the dry weight and if body weight increases by around 5 pounds, patient is to take Lasix 40 mg daily till body weight comes down to weight today. If not able to come down to dry body weight in 1 week, then is to call cardiology office for further recommendations. Patient was counseled in detail to take medications regularly as prescribed. Please follow-up with a primary care provider within next 1 week. Follow-up with cardiology on set appointment . Discharge Attestations Time Spent in Discharge Care*: greater than 30 min Specific Discharge Activities: educating patient, discussing with pcp/other providers, discussing with family independence case manager/social workers/dc planners, documenting/other paperwork and evaluating patient/reviewing data Status at Discharge: Cognitive status at discharge: cognitively intact, Behavioral status at discharge: cooperative, Functional status at discharge: independent ambulation, Overall status at discharge: patient is back to baseline Quality Metrics Clinical Quality Measures [ No reported AMI, CVA or VTE this stay] Coding Level of Care Code 64943 Total time (in minutes) for Discharge: 60 Diagnoses CHF (congestive heart failure) I50.9 Presence of cardiac pacemaker Z95.0 Acquired coronary artery fistula I25.41 Essential (primary) hypertension I10 Chest pain R07.9 Troponin level elevated R79.89 Cardiomyopathy I42.9
--- NOTE | 2023-10-01 16:29 | PC.NURSE ---
I spoke to Jessica with [facility] at # and gave her an updated report on the pt with new meds / med changes prescribed and doctor appointments made. She said that it would several days before they can see him as they have to wait on insurance approval.
--- NOTE | 2023-10-01 16:34 | PC.NURSE ---
Discharge Note Patient discharged to [home] via [w/c to transport vehicle] accompanied by [Ready warehouse associate driver]. Discharge instructions reviewed with patient and/or public relations representative. Mobile pharmacy medications and/or prescriptions provided. Belongings/home medications returned.
== END 2023-10-01 14:55 | disposition home health service (06) | DRG 286 ==
LOC: ER 14:25 → MEDSURG 15:27 → ICU 09-26 08:20 → MEDSURG 09-26 22:04 → CSU 09-28 14:01
PROVIDERS: Internal Medicine; Admitting Provider Internal Medicine; Emergency Provider Emergency Medicine; PCP Nurse Practitioner; Visit Provider Student in an Organized Health Care Education/Training Program
PROC: B2111ZZ Fluoroscopy of Multiple Coronary Arteries using Low Osmolar Contrast (ICD-10-PCS; principal; 2023-09-26 07:30)
DX: I11.0 Hypertensive heart disease with heart failure (principal); I50.23 Acute on chronic systolic (congestive) heart failure; N17.9 Acute kidney failure, unspecified; E27.40 Unspecified adrenocortical insufficiency; E87.20 Acidosis, unspecified; R79.89 Other specified abnormal findings of blood chemistry; W18.30XA Fall on same level, unspecified, initial encounter; E87.6 Hypokalemia; E78.5 Hyperlipidemia, unspecified; F41.1 Generalized anxiety disorder; J44.9 Chronic obstructive pulmonary disease, unspecified; K21.9 Gastro-esophageal reflux disease without esophagitis; I25.41 Coronary artery aneurysm; I42.8 Other cardiomyopathies; R91.1 Solitary pulmonary nodule; I95.1 Orthostatic hypotension; E86.0 Dehydration; E11.9 Type 2 diabetes mellitus without complications; Z79.4 Long term (current) use of insulin; Z79.82 Long term (current) use of aspirin; Z79.01 Long term (current) use of anticoagulants; Z79.85 Long-term (current) use of injectable non-insulin antidiabetic drugs; Z86.711 Personal history of pulmonary embolism; Z85.038 Personal history of other malignant neoplasm of large intestine; Z95.0 Presence of cardiac pacemaker; Z99.81 Dependence on supplemental oxygen; Z95.5 Presence of coronary angioplasty implant and graft; Z90.49 Acquired absence of other specified parts of digestive tract; Z11.52 Encounter for screening for COVID-19
CPT/HCPCS: 36415; 70450; 71045; 73502; 74177; 80048; 80053; 81001; 82550; 83735; 84443; 84484; 85025; 87086; 87486; 87581; 87633; 93005; 93308; 93458; 94640; 96365; 96366; 96372; 96374; 96375; 97110; 97116; 97161; 97165; 97530; 97535; 99152; 99153; 99285; C1769; C1887; C1894; G0378; J1644; J1650; J2250; J3010; J3480; J3490; J7030; J7512; Q9967

== ENCOUNTER 2023-10-03 19:55 | Inpatient (IN) | payer MEDICARE, MEDICAID, SELFPAY ==
--- NOTE | 2023-10-03 19:57 | ECG_ITS ---
[facility] Test Date: 2023-10-03 Pat Name: Andrew Sainz Department: Room: Gender: Male [employer] Manager: : 1940 Requested By: Yadira Reyes Order Number: [id number] Babatunde MD: Jose Mendiola M.D. Measurements Intervals [place] Rate: 75 P: 0 [place]: 0 QRS: -84 QRSD: 179 T: 111 QT: 447 QTc: 502 Interpretive Statements ELECTRONIC VENTRICULAR PACEMAKER Compared to ECG 09/23/2023 15:15:57 No significant changes Electronically Signed On 10-04-2023 9:45:33 CDT by Jose Mendiola M.D. [email or web address]
[2023-10-03 19:58] VITALS: BP 93/45; PULSE 70; RESP 20; TEMP 36.6; O2SAT 96; BMI 25.2
--- NOTE | 2023-10-03 19:58 | XRR_ITS ---
PROCEDURE INFORMATION: Exam: XR Chest Exam date and time: 10/03/2023 8:08 PM Age: 83 years old Clinical indication: Shortness of breath; Prior surgery; Surgery date: 6+ months; Surgery type: Pacer. Coronary stents. Lung. Patient HX: C/O SOB. History of chf, copd, and colon cancer. Wearing zoll life vest. TECHNIQUE: Imaging protocol: Radiologic exam of the chest. Views: 1 view. COMPARISON: CR (CHEST, ) 09/25/2023 10:23 PM FINDINGS: Tubes, catheters and devices: There is a dual-lead cardiac pacer via left subclavian approach. Findings are stable. Multiple metallic structures overlie the chest, the patient is wearing a Zoll lifevest. Lungs: Interval development of mild interstitial pulmonary edema with superimposed atelectasis versus pneumonia in the right and left lower lobes. Pleural spaces: No pleural effusion. No pneumothorax. Heart/Mediastinum: Stable moderate enlargement of the cardiac silhouette. Mediastinal contours are unremarkable. Vasculature: Stable vascular calcifications in the aorta. Bones/joints: Unremarkable for age. XR/XR chest 1V portable [id number] IMPRESSION: 1. Interval development of mild interstitial pulmonary edema with superimposed atelectasis versus pneumonia in the right and left lower lobes. Recommend clinical correlation. Recommend followup chest imaging to insure resolution of these findings. 2. Incidental/nonacute findings are listed in the report.
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
[2023-10-03 20:34] VITALS: BP 97/44; PULSE 69; RESP 22
[2023-10-03 20:43] LABS: Basophils # 0.1 10^3/uL (0.0-0.1); Basophils % 0.2 %; Eosinophils # 0.1 10^3/uL (0.0-0.8); Eosinophils % 0.2 %; Hematocrit 30.7 % (37-53); Lymphocytes # 0.3 10^3/uL (0.8-4.8); Lymphocytes % 1.2 %; Mean Corpuscular Hemoglobin 22.8 pg (27-33); Mean Platelet Volume 8.8 fL (7.4-10.4); Monocytes # 1.2 10^3/uL (0.2-0.9); Neutrophils # 22.36 10^3/uL (1.8-7.7); Neutrophils % 92.4 %; Nucleated Red Blood Cells % 0 %; Platelet Count 237 10^3/cmm (157-399); Red Blood Count 4.04 10^6/uL (3.85-5.65); Red Cell Distribution Width 19.8 % (12.1-15.1); White Blood Count 24.18 10^3/uL (3.29-11.43)
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
[2023-10-03 21:15] LABS: Alanine Aminotransferase 29 U/L (0-41); Alkaline Phosphatase 67 U/L (40-130); Anion Gap 15.1 (5-19); Aspartate Amino Transferase 17 U/L (0-40); Blood Urea Nitrogen 43 mg/dL (8-23); Calcium 8.8 mg/dL (8.5-10.5); Carbon Dioxide 23 mmol/L (22-29); Chloride 104 mmol/L (98-107); Creatinine Clr Calc Pharmacy 62.8494; Globulin 2.5 g/dL (1.3-4.6); Glucose 153 mg/dL (65-115); Magnesium 1.9 mg/dL (1.7-2.3); NT Pro B Type Natriuretic Pept 10002 pg/mL (0-450); Osmolality Calculated 298 mOsm/kg (285-295); Potassium 5.1 mmol/L (3.5-5.1); Sodium 137 mmol/L (136-145); Total Bilirubin 0.6 mg/dL (0.15-1.2); Total Protein 5.5 g/dL (6.6-8.7)
[2023-10-03 21:27] VITALS: BP 102/53; PULSE 62; RESP 25; O2SAT 99
--- NOTE | 2023-10-03 21:47 | PC.NURSE ---
blood culture drawn on pt at this time.
[2023-10-03] MEDS: cefTRIAXone 1,000 mg SDV 1000 MG IVP (21:51)
[2023-10-03 21:53] LABS: Lactic Sepsis W/Reflex 1.7 mmol/L (0.5-2.2)
[2023-10-03] MEDS: azithromycin 500 MG in sodium chloride 0.9% 250 ML 250 MG IV (21:57)
[2023-10-03] MEDS: ondansetron 2 mg/ML SDV 2 mL 4 MG IVP (22:37)
[2023-10-03 22:54] VITALS: BMI 24.7
[2023-10-03] MEDS: sodium chloride 0.9% (plus) 50 ML 100 ML (23:20)
[2023-10-03] MEDS: water for injection-sterile 10 ML 100 ML (23:20)
[2023-10-03] MEDS: cefepime 2,000 mg SDV 2000 MG IVP (23:20)
[2023-10-03] MEDS: ipratropium-albuterol 3 mL Neb INHALATION (23:29)
[2023-10-03 23:48] VITALS: O2SAT 94
[2023-10-04] VITALS (10 sets, daily range): BP systolic 99–110; BP diastolic 51–60; PULSE 60–100; RESP 17–20; TEMP 36.3–36.6; O2SAT 93–99
[2023-10-04] MEDS: FUROsemide 10 mg/mL SDV 2mL 20 MG IVP
[2023-10-04 03:15] LABS: Add Urine Microscopic? YES; Bacteria Urine 2+ /hpf; Bilirubin Urine Neg (Negative); Blood Urine 3+ (Negative); Glucose Urine UA Norm (Normal); Hyaline Casts Urine 0-4 /lpf; Ketones Urine Negative (Negative); Leukocyte Esterase Urine Negative (Negative); Mucus Urine 1+ /hpf; Nitrate Urine Negative (Negative); Protein Urine Trace (Negative); RBC Urine 80-100 /hpf (0-2); Squamous Epithelial Cell Urine 0-4 /hpf (0-5); Urine Appearance Cloudy (CLEAR); Urine Color Dark Yellow (Yellow); Urobilinogen Urine Neg (Negative); pH Urine 5 (5-7)
[2023-10-04 03:17] LABS: Add Urine Culture? Yes
[2023-10-04] MEDS: ipratropium-albuterol 3 mL Neb INHALATION ×5 (03:29→20:27)
[2023-10-04] MEDS: aspirin 81 mg EC Tablet PO (06:15)
[2023-10-04] MEDS: roflumilast 500 mcg Tablet PO (06:15)
[2023-10-04 06:29] LABS: Glucose Point of Care 166 mg/dL (70-110)
[2023-10-04 07:52] LABS: Anion Gap 17.3 (5-19); Blood Urea Nitrogen 47 mg/dL (8-23); C Reactive Protein 239.1 mg/L (0.0-4.9); Calcium 8.6 mg/dL (8.5-10.5); Carbon Dioxide 20 mmol/L (22-29); Chloride 102 mmol/L (98-107); Creatinine Clr Calc Pharmacy 48.6494; Glucose 146 mg/dL (65-115); Magnesium 1.9 mg/dL (1.7-2.3); Osmolality Calculated 293 mOsm/kg (285-295); Potassium 5.3 mmol/L (3.5-5.1); Sodium 134 mmol/L (136-145)
[2023-10-04] MEDS: sucralfate 1 gm Tablet PO ×2 (08:00→17:49)
[2023-10-04] MEDS: spironolactone 25 mg Tablet PO (08:00)
[2023-10-04] MEDS: predniSONE 5 mg Tablet PO ×2 (08:00→17:49)
[2023-10-04] MEDS: doxycycline 100 mg Tablet PO ×2 (08:00→17:49)
[2023-10-04] MEDS: sennosides-docusate Tablet 1 TAB PO (08:00)
[2023-10-04] MEDS: apixaban 5 mg Tablet PO ×2 (08:00→17:49)
[2023-10-04] MEDS: FUROsemide 10 mg/mL SDV 10mL 40 MG IVP (08:00)
--- NOTE | 2023-10-04 08:21 | CT_ITS ---
WS: [id number] CT CHEST TECHNIQUE: Noncontrast CT of the chest with coronal and sagittal reformatted images. CLINICAL INFORMATION: cough, dyspnea, hemoptysis COMPARISON: CT chest 05/26/2023 DLP: 377.[address] scans at [facility] use at least one of these dose optimization techniques: automated e xposure control; mA and/or kV adjustment per patient size (includes targeted exams where dose is matc hed to clinical indication); or iterative reconstruction. FINDINGS: Small RIGHT pleural effusion with consolidation in the RIGHT lower lobe with air bronchograms. Dense consolidation RIGHT lower lobe. Findings compatible with pneumonia. This is progressed since 05/26/2023 . Improved LEFT pleural effusion. Small amount of residual LEFT pleural fluid. Subsegmental atelectas is LEFT lower lobe. Chronic emphysematous changes. Cardiomegaly. Aortic calcification. Normal caliber thoracic aorta. Coronary calcification. No mediast inal or hilar lymphadenopathy. No axillary lymphadenopathy. Few small cysts in liver dome similar to previous. Small LEFT adrenal adenoma. RIGHT adrenal gland is normal. Small LEFT renal cortical cyst. Small esophageal hernia. Mild thoracic kyphosis. Hypertrophi c changes thoracic spine. CT/CT chest wo con [id number] IMPRESSION: 1. Small RIGHT pleural effusion with dense consolidation in the RIGHT lower lo be with air bronchograms compatible with pneumonia. Recommend follow-up to reso lution. 2. Trace LEFT pleural fluid. 3. Chronic emphysematous changes. 4. Cardiomegaly. 5. Small esophageal hernia.
--- NOTE | 2023-10-04 09:13 | P.PN_ITS ---
Subjective 2 Subjective: History and physical reviewed. Patient reports he is coughing up a little bit of blood. He denies any chest pain. He reports his wheezing is about the same. No vomiting. Occasionally coughs when he drinks and eats. Medications: Reviewed: Yes Vitals/I&O/Wt Last Vital Signs Temp 97.8 F 10/04/23 08:29 Pulse 72 10/04/23 08:29 Resp 18 10/04/23 08:29 BP 110/51 10/04/23 08:29 Pulse Ox 96 10/04/23 08:29 O2 Del Method Nasal Cannula 10/04/23 08:29 O2 Flow Rate 4 10/04/23 07:45 10/03/23 10/04/23 10/04/23 22:59 06:59 14:59 Intake Total 790 / 790 Output Total 300 / 300 Balance 490 / 490 Weight last 48 hrs Weight 83.325 kg Weight 80.377 kg Weight 82.1 kg Physical Exam 2 Narrative: General exam no distress. Currently on 4 L of oxygen. It appears she was using 3 L at last hospital stay. Neck is supple no lymphadenopathy thyromegaly Cardiovascular regular rate and rhythm with a 2/6 systolic murmur Lungs coarse breath sounds at the bases. Occasional wheezes heard more on the right Abdomen is soft nontender with positive bowel sounds Extremities no cyanosis clubbing, cap refill brisk. Trace bilateral edema. Data 10/03/23 20:23 10/04/23 07:06 Micro: Microbiology 10/03/23 07:06 Blood Culture - Preliminary Blood SPECIMEN COLLECTED 10/03/23 21:44 Blood Culture - Preliminary Blood SPECIMEN COLLECTED A&P Assessment and plan (1) Pneumonia: Continue cefepime, doxycycline Sputum culture Respiratory panel, MRSA PCR Wean oxygen as tolerated With oxygen requirements of 4 L, up from 3 L noted last hospital stay, significant leukocytosis, sputum production with some mixed in blood needs continued monitoring in hospital with IV antibiotics ST evaluation as he reports he coughs some with eating (2) Cardiomyopathy: Patient with history of nonischemic cardiomyopathy Recently had angiogram which showed no flow-limiting stenosis Currently on 40 mg of Lasix daily, and closely following BMP daily Avoid IV fluids Patient already has a LifeVest, continue Has evidence of acute systolic heart failure. Continue Lasix IV. (3) Hemoptysis: Patient is currently on anticoagulation with aspirin and apixaban. His hemoptysis is likely secondary to anticoagulation in the face of pneumonia. He has had a PE in the past but current PE is unlikely as he was placed on anticoagulation following this and he has been compliant with it. Secondary to his renal insufficiency we will check a noncontrast CT chest (4) COPD (chronic obstructive pulmonary disease): Budesonide twice daily DuoNeb scheduled No evidence of exacerbation currently On chronic steroids, continue Qualifiers: COPD type: unspecified COPD Qualified Code(s): J44.9 - Chronic obstructive pulmonary disease, unspecified (5) Hyperkalemia: Patient with mild hyperkalemia Avoid any potassium products Discontinue Aldactone Recheck tomorrow (6) Iron deficiency anemia: Check iron studies Iron supplementation IV if appropriate Qualifiers: Iron deficiency anemia type: inadequate dietary iron intake Qualified Code(s): D50.8 - Other iron deficiency anemias (7) Acute kidney injury: Follow creatinine closely Avoid renal toxic medication Will continue Lasix IV for now as he appears slightly fluid overloaded. (8) Microscopic hematuria: Consider outpatient evaluation Urine culture If UTI is present, cefepime should be sufficient Note that he had recent CT abdomen and pelvis which did not show any evidence renal stone ureterolithiasis, obstruction Plan Concern of adrenal insufficiency. Prednisone was increased to 5 mg twice daily last hospital stay Severe weakness. May need nursing facility placement. Full code Eliquis should suffice for DVT prophylaxis Attestations 2 Medical Necessity Statement*: Requires continued hospitalization for IV antibiotics secondary to pneumonia with increased oxygen need in this patient with acute kidney injury, hyperkalemia, hemoptysis, CHF exacerbation Diagnoses Pneumonia J18.9 Cardiomyopathy I42.9 Hemoptysis R04.2 Chronic obstructive pulmonary disease, unspecified COPD type J44.9 COPD type: unspecified COPD Hyperkalemia E87.5 Iron deficiency anemia secondary to inadequate dietary iron intake D50.8 Iron deficiency anemia type: inadequate dietary iron intake Acute kidney injury N17.9 Microscopic hematuria R31.29 Time Spent (min) 35
--- NOTE | 2023-10-04 10:01 | PC.PHAR ---
[facility]. [phone]
[2023-10-04 11:36] LABS: Ferritin 90 ng/mL (30-400); Iron 7 ug/dL (59-158); Percent Saturation 2.6 % (20-50); Total Iron Binding Capacity 261 mcg/dl; Unsaturated Iron Binding 254 ug/dL (112-347)
[2023-10-04 12:12] LABS: Glucose Point of Care 147 mg/dL (70-110)
[2023-10-04] MEDS: cefepime 2,000 mg SDV 2000 MG IVP (12:31)
[2023-10-04 14:52] LABS: Hematocrit 27.1 % (37-53); Mean Corpuscular HGB Conc 29.2 g/dL (30-55); Mean Corpuscular Hemoglobin 22.6 pg (27-33); Mean Corpuscular Volume 77.7 fl (82-101); Mean Platelet Volume 9.4 fL (7.4-10.4); Platelet Count 200 10^3/cmm (157-399); Red Blood Count 3.49 10^6/uL (3.85-5.65); White Blood Count 24.02 10^3/uL (3.29-11.43)
[2023-10-04 15:36] LABS: Slide Review Slide Review Perform
[2023-10-04 15:38] LABS: Absolute Segmented Neutrophil 15.6 10/cmm (1.6-7.1); Band Neutrophils Absolute 7.7 10^3/cmm (0.0-1.2); Monocytes Absolute 0.7 10^3/cmm (0.1-0.6); Segmented Neutrophils 65 %; Total Cells Counted 100 (0-100)
[2023-10-04 15:39] LABS: Absolute Neutrophil 23.3 10^3/cmm (1.4-6.5); Hypochromasia 1+; Microcytosis 1+; Platelet Estimate Normal (Normal); Poikilocytosis 2+
[2023-10-04 15:40] LABS: Anisocytosis 2+; Eosinophils 0 %; Lymphocytes 0 %
[2023-10-04 16:48] LABS: Glucose Point of Care 149 mg/dL (70-110)
[2023-10-04 17:59] LABS: Adenovirus Not Detected (NOT DETECT); Chlamydia Pneumoniae Not Detected (NOT DETECT); Coronavirus 229E,HKU1,NL63,OC4 Not Detected (NOT DETECT); Human Metapneumovirus Not Detected (NOT DETECT); Human Rhinovirus/Enterovirus Not Detected (NOT DETECT); Influenza A Not Detected (NOT DETECT); Influenza A H1 Not Detected (NOT DETECT); Influenza A H1-2009 Not Detected (NOT DETECT); Influenza A H3 Not Detected (NOT DETECT); Influenza B Not Detected (NOT DETECT); Mycoplasma Pneumoniae Not Detected (NOT DETECT); Parainfluenza Virus Type 1 Not Detected (NOT DETECT); Parainfluenza Virus Type 2 Not Detected (NOT DETECT); Parainfluenza Virus Type 3 Not Detected (NOT DETECT); Parainfluenza Virus Type 4 Not Detected (NOT DETECT); Respiratory Syncytial Virus A Not Detected (NOT DETECT); Respiratory Syncytial Virus B Not Detected (NOT DETECT); SARS-COV-2 Not Detected (NOT DETECT)
[2023-10-04] MEDS: budesonide 0.5 mg/2 mL Neb INHALATION (20:27)
[2023-10-04] MEDS: vancomycin 1,250 MG/250 ML PIGGYBACK 250 MG IV (20:35)
[2023-10-04 20:36] LABS: Glucose Point of Care 125 mg/dL (70-110)
[2023-10-04] MEDS: metoprolol tartrate 25 mg Tablet 12.5 MG PO (20:36)
[2023-10-04] MEDS: tamsulosin 0.4 mg Capsule PO (20:36)
[2023-10-04] MEDS: iron sucrose 200 MG in sodium chloride 0.9% (100 ml) 100 ML 220 MG IV (21:41)
[2023-10-04 21:56] LABS: Hematocrit 25.9 % (37-53)
[2023-10-05] VITALS (22 sets, daily range): BP systolic 95–139; BP diastolic 50–62; PULSE 58–90; RESP 15–20; TEMP 36.2–37; O2SAT 91–100
[2023-10-05] MEDS: ipratropium-albuterol 3 mL Neb INHALATION ×7 (00:16→23:49)
[2023-10-05] MEDS: cefepime 2,000 mg SDV 2000 MG IVP ×2 (00:22→11:50)
[2023-10-05 06:28] LABS: Glucose Point of Care 101 mg/dL (70-110)
[2023-10-05] MEDS: roflumilast 500 mcg Tablet PO (06:30)
[2023-10-05] MEDS: aspirin 81 mg EC Tablet PO (06:30)
[2023-10-05] MEDS: finasteride 5 mg Tablet PO (06:30)
[2023-10-05 06:53] LABS: Basophils % 0.1 %; Hematocrit 24.5 % (37-53); Lymphocytes # 0.8 10^3/uL (0.8-4.8); Lymphocytes % 4.5 %; Mean Corpuscular HGB Conc 29.8 g/dL (30-55); Mean Corpuscular Hemoglobin 22.6 pg (27-33); Mean Corpuscular Volume 75.9 fl (82-101); Mean Platelet Volume 9.1 fL (7.4-10.4); Monocytes # 0.9 10^3/uL (0.2-0.9); Neutrophils # 15.54 10^3/uL (1.8-7.7); Neutrophils % 89.7 %; Nucleated Red Blood Cells % 0 %; Platelet Count 190 10^3/cmm (157-399); Red Blood Count 3.23 10^6/uL (3.85-5.65); Red Cell Distribution Width 19.9 % (12.1-15.1)
[2023-10-05 07:08] LABS: Alanine Aminotransferase 25 U/L (0-41); Albumin Level 2.4 g/dL (3.5-5.2); Alkaline Phosphatase 97 U/L (40-130); Anion Gap 16.8 (5-19); Aspartate Amino Transferase 18 U/L (0-40); Blood Urea Nitrogen 54 mg/dL (8-23); Calcium 8.6 mg/dL (8.5-10.5); Carbon Dioxide 19 mmol/L (22-29); Chloride 101 mmol/L (98-107); Creatinine Clr Calc Pharmacy 57.6142; Glucose 106 mg/dL (65-115); Magnesium 2.1 mg/dL (1.7-2.3); Osmolality Calculated 289 mOsm/kg (285-295); Potassium 4.8 mmol/L (3.5-5.1); Sodium 132 mmol/L (136-145); Total Bilirubin 0.3 mg/dL (0.15-1.2); Total Protein 5.4 g/dL (6.6-8.7)
[2023-10-05] MEDS: budesonide 0.5 mg/2 mL Neb INHALATION ×2 (07:54→19:59)
--- NOTE | 2023-10-05 09:10 | PC.CHAP ---
Pastoral Care Encounter/Spiritual Assessment Type of Contact [] Declined supervisor inventory merchandising visit [] Patient/Family/Request visit [] Outpatient visit [] Follow-up visit [] Physician referral [] Code/Alert [] Routine visit [] Staff referral [] Actively dying [] Patient sleeping [] Family support [] [] Out of room [] Palliative care [] [X] Receiving care in room [] Pre-surgical visit [] Trauma [] Long length of stay [] ICU visit [] Other: Relational/Emotional Strength [] Patient feels connected with others/family/visitors/staff [] Distress [] Loneliness/isolation [] Abandonment Spirituality of Patient [] Person of Lynda [] Attends Zoroastrian of their Lynda [] Believes in Prayer [] Reads Bible or Caodaism materials [] There are Spiritual issues to be addressed Material Movers Interventions [] Prayer [] Active listening [] Non-anxious presence [] Spiritual/emotional support [] Crisis/trauma care [] Spiritual counseling [] Bereavement support [] Provided bereavement packet [] Provided Bible/devotional materials [] Provided toy/stuffed animal, coloring book to patient or family member [] Provided Communion [] Anointing/[place] [] Salvation [] Completed spiritual assessment [] Other: Impact on Illness or Injury [] Angry [] Fearful [] Anxious [] Often cries [] Exhaustion [] Unable to work [] Unable to attend baptism [] Unable to walk/stand [] Unable to read [] Unable to drive [] Unable to eat/drink [] Unable to sleep [] Unable to be with family [] Patient intubated [] Other: Summary Time spent with patient
[2023-10-05] MEDS: sucralfate 1 gm Tablet PO ×2 (09:44→17:56)
[2023-10-05] MEDS: atorvastatin 40 mg Tablet 80 MG PO (09:44)
[2023-10-05] MEDS: sennosides-docusate Tablet 1 TAB PO (09:45)
[2023-10-05] MEDS: predniSONE 5 mg Tablet PO ×2 (09:45→17:56)
[2023-10-05] MEDS: apixaban 5 mg Tablet PO ×2 (09:45→17:56)
[2023-10-05] MEDS: pantoprazole DR 40 mg Tablet PO (09:45)
--- NOTE | 2023-10-05 10:13 | P.PN_ITS ---
Subjective 2 Subjective: Andrew reports he feels pretty bad today. Wheezing more, coughing more. He reports that the blood in his sputum is let up. No chest pain. Medications: Reviewed: Yes Vitals/I&O/Wt Last Vital Signs Temp 97.1 F L 10/05/23 07:28 Pulse 62 10/05/23 07:56 Resp 18 10/05/23 07:56 BP 95/51 10/05/23 07:28 Pulse Ox 99 10/05/23 07:56 O2 Del Method Nasal Cannula 10/05/23 07:56 O2 Flow Rate 4 10/05/23 07:56 10/04/23 10/05/23 10/05/23 22:59 06:59 14:59 Intake Total 960 / 1560 240 / 1800 240 / 240 Output Total 500 / 500 Balance 460 / 1060 240 / 1300 240 / 240 Weight last 48 hrs Weight 83.733 kg Weight 83.325 kg Weight 80.377 kg Weight 82.1 kg Physical Exam 2 Narrative: General exam no distress. Currently on 4 L of oxygen. Neck is supple no lymphadenopathy thyromegaly Cardiovascular regular rate and rhythm with a 2/6 systolic murmur Lungs coarse breath sounds at the bases. Occasional wheezes heard more on the right Abdomen is soft nontender with positive bowel sounds Extremities no cyanosis clubbing, cap refill brisk. Trace bilateral edema. Data 10/05/23 06:09 10/05/23 06:09 Micro: Microbiology 10/03/23 21:44 Blood Culture - Preliminary Blood Streptococcus pneumoniae 10/03/23 07:06 Blood Culture - Preliminary Blood NEGATIVE TO DATE 10/04/23 18:19 Blood Culture - Preliminary Blood SPECIMEN COLLECTED 10/04/23 18:22 Blood Culture - Preliminary Blood SPECIMEN COLLECTED 10/04/23 00:05 Gram Stain - Final Sputum - Expectorated Sputum A&P Assessment and plan (1) Pneumonia: Continue cefepime. Changed to vancomycin yesterday with positive blood culture. Repeat blood cultures obtained. CBC, CMP daily on vancomycin. This is a potentially renal toxic medication. Vancomycin troughs, review and adjust with pharmacy. Sputum culture pending Respiratory panel negative, await MRSA PCR Wean oxygen as tolerated Appreciate ST evaluation (2) Cardiomyopathy: Patient with history of nonischemic cardiomyopathy Recently had angiogram which showed no flow-limiting stenosis Currently on 40 mg of Lasix daily, and closely following BMP daily Avoid IV fluids With blood transfusion, increase Lasix to 60 mg IV every 24 hours Patient already has a LifeVest, continue Has evidence of acute systolic heart failure. Continue Lasix IV. (3) Hemoptysis: Patient is currently on anticoagulation with aspirin and apixaban. His hemoptysis is likely secondary to anticoagulation in the face of pneumonia. He has had a PE in the past but current PE is unlikely as he was placed on anticoagulation following this and he has been compliant with it. Secondary to his renal insufficiency a noncontrast CT chest was performed. This demonstrated pneumonia. Small right and left pleural effusion. (4) COPD (chronic obstructive pulmonary disease): Budesonide twice daily DuoNeb scheduled No evidence of exacerbation currently On chronic steroids, continue Qualifiers: COPD type: unspecified COPD Qualified Code(s): J44.9 - Chronic obstructive pulmonary disease, unspecified (5) Hyperkalemia: Patient with mild hyperkalemia on 10/03. This is resolved. Avoid any potassium products Do not restart Aldactone currently Recheck tomorrow (6) Iron deficiency anemia: Hemoglobin significantly low today He would benefit from a blood transfusion 1 unit packed red blood cells will be given today. Qualifiers: Iron deficiency anemia type: inadequate dietary iron intake Qualified Code(s): D50.8 - Other iron deficiency anemias (7) Acute kidney injury: Follow creatinine closely Avoid renal toxic medication Renal function slightly improved Will continue Lasix IV for now as he appears slightly fluid overloaded. (8) Microscopic hematuria: Consider outpatient evaluation Final urine culture pending If UTI is present, cefepime should be sufficient Note that he had recent CT abdomen and pelvis which did not show any evidence renal stone ureterolithiasis, obstruction Plan Concern of adrenal insufficiency. Prednisone was increased to 5 mg twice daily last hospital stay Severe weakness. Needs nursing facility placement. PT eval Full code Eliquis should suffice for DVT prophylaxis Attestations 2 Medical Necessity Statement*: Needs continued hospitalization for IV antibiotics secondary to pneumonia, delineation of positive blood culture, blood transfusion. Diagnoses Pneumonia J18.9 Cardiomyopathy I42.9 Hemoptysis R04.2 Chronic obstructive pulmonary disease, unspecified COPD type J44.9 COPD type: unspecified COPD Hyperkalemia E87.5 Iron deficiency anemia secondary to inadequate dietary iron intake D50.8 Iron deficiency anemia type: inadequate dietary iron intake Acute kidney injury N17.9 Microscopic hematuria R31.29 Time Spent (min) 25
[2023-10-05 10:44] LABS: Glucose Point of Care 139 mg/dL (70-110)
[2023-10-05] MEDS: water for injection-sterile 10 ML 5 ML (11:51)
[2023-10-05] MEDS: sodium chloride 0.9% (100 ml) 100 ML 125 ML (11:52)
[2023-10-05] MEDS: FUROsemide 10 mg/mL SDV 10mL 60 MG IVP (12:21)
[2023-10-05] MEDS: diphenhydrAMINE 25 mg Capsule PO (12:25)
--- NOTE | 2023-10-05 12:30 | PC.NURSE ---
Notified Dr. Tejeda to give lasix due to Bp 139/53 and hr 60. Patient receiving blood at this time and stated patient did not feel right. Dr. Tejeda order Benadryl 25 mg PO and to give lasix. Monitor vitals.
[2023-10-05 12:50] LABS: Basophils % 0.1 %; Hematocrit 25.8 % (37-53); Lymphocytes # 0.4 10^3/uL (0.8-4.8); Lymphocytes % 2.4 %; Mean Corpuscular HGB Conc 30.6 g/dL (30-55); Mean Corpuscular Hemoglobin 23.2 pg (27-33); Mean Corpuscular Volume 75.9 fl (82-101); Mean Platelet Volume 9.5 fL (7.4-10.4); Monocytes # 0.8 10^3/uL (0.2-0.9); Monocytes % 5.3 %; Neutrophils # 14.08 10^3/uL (1.8-7.7); Neutrophils % 91.5 %; Nucleated Red Blood Cells % 0 %; Platelet Count 207 10^3/cmm (157-399); Red Cell Distribution Width 20.2 % (12.1-15.1); White Blood Count 15.38 10^3/uL (3.29-11.43)
--- NOTE | 2023-10-05 14:47 | PC.NURSE ---
notified Dr. Tejeda of metoprolol and patients blood pressure of 122/[address] Tejeda stated to resume with evening dose.
--- NOTE | 2023-10-05 15:45 | PC.NURSE ---
Last vitals for blood transfusion taken at 1505
[2023-10-05 17:13] LABS: Glucose Point of Care 202 mg/dL (70-110)
[2023-10-05] MEDS: vancomycin 1,250 MG/250 ML PIGGYBACK 250 MG IV (18:39)
[2023-10-05 20:26] LABS: Methicillin-Resist S.aureu PCR NOT DETECTED (NOT DETECTED)
[2023-10-05] MEDS: tamsulosin 0.4 mg Capsule PO (21:03)
[2023-10-05] MEDS: metoprolol tartrate 25 mg Tablet 12.5 MG PO (21:03)
[2023-10-05] MEDS: cefepime 1,000 MG in sodium chloride 0.9% (plus) 50 ML 100 MG IV (22:56)
[2023-10-06] VITALS (10 sets, daily range): BP systolic 104–126; BP diastolic 57–72; PULSE 58–63; RESP 16–18; TEMP 36.4–37.2; O2SAT 98–100
[2023-10-06] MEDS: ipratropium-albuterol 3 mL Neb INHALATION ×3 (03:22→11:03)
[2023-10-06 05:38] LABS: Alanine Aminotransferase 35 U/L (0-41); Albumin Level 2.6 g/dL (3.5-5.2); Alkaline Phosphatase 166 U/L (40-130); Anion Gap 17.1 (5-19); Aspartate Amino Transferase 26 U/L (0-40); Blood Urea Nitrogen 52 mg/dL (8-23); Calcium 8.4 mg/dL (8.5-10.5); Carbon Dioxide 19 mmol/L (22-29); Chloride 105 mmol/L (98-107); Creatinine Clr Calc Pharmacy 57.8749; Globulin 3.1 g/dL (1.3-4.6); Glucose 130 mg/dL (65-115); Magnesium 2.2 mg/dL (1.7-2.3); Osmolality Calculated 300 mOsm/kg (285-295); Potassium 4.1 mmol/L (3.5-5.1); Sodium 137 mmol/L (136-145); Total Bilirubin 0.4 mg/dL (0.15-1.2); Total Protein 5.7 g/dL (6.6-8.7)
[2023-10-06] MEDS: finasteride 5 mg Tablet PO (06:19)
[2023-10-06] MEDS: aspirin 81 mg EC Tablet PO (06:19)
[2023-10-06] MEDS: roflumilast 500 mcg Tablet PO (06:19)
[2023-10-06 07:45] LABS: Basophils % 0.1 %; Hematocrit 27.1 % (37-53); Lymphocytes # 0.7 10^3/uL (0.8-4.8); Lymphocytes % 6.1 %; Mean Corpuscular HGB Conc 29.9 g/dL (30-55); Mean Corpuscular Hemoglobin 23.1 pg (27-33); Mean Corpuscular Volume 77.4 fl (82-101); Mean Platelet Volume 9.5 fL (7.4-10.4); Monocytes # 0.7 10^3/uL (0.2-0.9); Monocytes % 6.7 %; Neutrophils # 9.29 10^3/uL (1.8-7.7); Neutrophils % 86.6 %; Nucleated Red Blood Cells % 0 %; Platelet Count 181 10^3/cmm (157-399); Red Cell Distribution Width 20.3 % (12.1-15.1); White Blood Count 10.72 10^3/uL (3.29-11.43)
[2023-10-06] MEDS: budesonide 0.5 mg/2 mL Neb INHALATION (08:04)
[2023-10-06] MEDS: water for injection-sterile 20 ML (09:09)
[2023-10-06] MEDS: cefTRIAXone 2,000 mg SDV 2000 MG IVP (09:09)
[2023-10-06] MEDS: pantoprazole DR 40 mg Tablet PO (09:10)
[2023-10-06] MEDS: sennosides-docusate Tablet 1 TAB PO (09:10)
[2023-10-06] MEDS: apixaban 5 mg Tablet PO (09:10)
[2023-10-06] MEDS: predniSONE 5 mg Tablet PO (09:10)
[2023-10-06] MEDS: sucralfate 1 gm Tablet PO (09:10)
[2023-10-06] MEDS: FUROsemide 10 mg/mL SDV 10mL 60 MG IVP (09:10)
[2023-10-06] MEDS: atorvastatin 40 mg Tablet 80 MG PO (09:10)
[2023-10-06] MEDS: metoprolol tartrate 25 mg Tablet 12.5 MG PO (09:11)
--- NOTE | 2023-10-06 09:40 | PC.CHAP ---
Pastoral Care Encounter/Spiritual Assessment Type of Contact [] Declined tower switch operator visit [] Patient/Family/Request visit [] Outpatient visit [] Follow-up visit [] Physician referral [] Code/Alert [] Routine visit [] Staff referral [] Actively dying [] Patient sleeping [] Family support [] [] Out of room [] Palliative care [] [x] Receiving care in room [] Pre-surgical visit [] Trauma [] Long length of stay [] ICU visit [] Other: Relational/Emotional Strength [] Patient feels connected with others/family/visitors/staff [] Distress [] Loneliness/isolation [] Abandonment Spirituality of Patient [] Person of Lynda [] Attends Gnosticism of their Lynda [] Believes in Prayer [] Reads Bible or Yarsanism materials [] There are Spiritual issues to be addressed Dental Technician Metal Interventions [] Prayer [] Active listening [] Non-anxious presence [] Spiritual/emotional support [] Crisis/trauma care [] Spiritual counseling [] Bereavement support [] Provided bereavement packet [] Provided Bible/devotional materials [] Provided toy/stuffed animal, coloring book to patient or family member [] Provided Communion [] Anointing/[place] [] Salvation [] Completed spiritual assessment [] Other: Impact on Illness or Injury [] Angry [] Fearful [] Anxious [] Often cries [] Exhaustion [] Unable to work [] Unable to attend gnosticism [] Unable to walk/stand [] Unable to read [] Unable to drive [] Unable to eat/drink [] Unable to sleep [] Unable to be with family [] Patient intubated [] Other: Summary Time spent with patient
--- NOTE | 2023-10-06 09:47 | PC.SOCIAL ---
IMM Update Pg. 2 of IMM Updated and reviewed with patient, who verbalized understanding. Copy provided.
--- NOTE | 2023-10-06 10:32 | PM.PN ---
Subjective Subjective: Andrew had quite a few questions today. He is still desiring to go to the retirement. We talked in depth regarding his diagnosis of pneumonia, and bacteremia with strep pneumonia. No wants to go to the nursing facility for rehabilitation. Medications: Reviewed: Yes Vitals/I&O/Wt Last Vital Signs Temp 97.7 F 10/06/23 07:41 Pulse 62 10/06/23 08:16 Resp 16 10/06/23 08:06 BP 126/72 10/06/23 07:41 Pulse Ox 99 10/06/23 08:06 O2 Del Method Nasal Cannula 10/06/23 08:06 O2 Flow Rate 3 10/06/23 08:06 10/05/23 10/06/23 10/06/23 22:59 06:59 14:59 Intake Total 600 / 960 50 / 1010 360 / 360 Output Total 600 / 600 1025 / 1625 200 / 200 Balance 0 / 360 -975 / -615 160 / 160 Weight last 48 hrs Weight 84.623 kg Weight 83.733 kg Physical Exam Narrative: General exam no distress. Currently on 3 L of oxygen. Neck is supple no lymphadenopathy thyromegaly Cardiovascular regular rate and rhythm with a 2/6 systolic murmur Lungs coarse fair air movement. Occasional expiratory wheezes. Abdomen is soft nontender with positive bowel sounds Extremities no cyanosis clubbing, cap refill brisk. Trace bilateral edema. Data 10/06/23 04:40 10/06/23 04:40 Micro: Microbiology 10/04/23 00:05 Urine Culture - Final Urine,Clean Catch 10/04/23 18:22 Blood Culture - Preliminary Blood NEGATIVE TO DATE 10/04/23 18:19 Blood Culture - Preliminary Blood NEGATIVE TO DATE 10/04/23 00:05 Gram Stain - Final Sputum - Expectorated Sputum Sputum Culture - Preliminary 10/03/23 21:44 Blood Culture - Preliminary Blood Streptococcus pneumoniae 10/03/23 07:06 Blood Culture - Preliminary Blood NEGATIVE TO DATE A&P Assessment and plan (1) Pneumonia: Continue cefepime. Changed to vancomycin yesterday with positive blood culture. Repeat blood cultures negative to date. Initial blood culture 2/4 bottles strep pneumonia. Vancomycin can be discontinued Rocephin 2 g IV daily. Candidate for outpatient Levaquin when discharged Sputum culture pending Respiratory panel negative, MRSA PCR negative Wean oxygen as tolerated Appreciate ST evaluation (2) Cardiomyopathy: Patient with history of nonischemic cardiomyopathy Recently had angiogram which showed no flow-limiting stenosis Currently on 60 mg of Lasix daily, and closely following BMP daily Avoid IV fluids Appears better compensated Patient already has a LifeVest, continue Has evidence of acute systolic heart failure. Continue Lasix IV. (3) Hemoptysis: Patient is currently on anticoagulation with aspirin and apixaban. His hemoptysis is likely secondary to anticoagulation in the face of pneumonia. He has had a PE in the past but current PE is unlikely as he was placed on anticoagulation following this and he has been compliant with it. Secondary to his renal insufficiency a noncontrast CT chest was performed. This demonstrated pneumonia. Small right and left pleural effusion. (4) COPD (chronic obstructive pulmonary disease): Budesonide twice daily DuoNeb scheduled No evidence of exacerbation currently On chronic steroids, continue Qualifiers: COPD type: unspecified COPD Qualified Code(s): J44.9 - Chronic obstructive pulmonary disease, unspecified (5) Hyperkalemia: Patient with mild hyperkalemia on 10/03. This is resolved. Avoid any potassium products Do not restart Aldactone currently (6) Iron deficiency anemia: Hemoglobin significantly low today He would benefit from a blood transfusion. He was transfused 1 unit 10/06 and hemoglobin has gone up appropriately Qualifiers: Iron deficiency anemia type: inadequate dietary iron intake Qualified Code(s): D50.8 - Other iron deficiency anemias (7) Acute kidney injury: Follow creatinine closely Avoid renal toxic medication Renal function slightly improved (8) Microscopic hematuria: Consider outpatient evaluation Urine culture mixed hong, not concerning Note that he had recent CT abdomen and pelvis which did not show any evidence renal stone ureterolithiasis, obstruction Plan Concern of adrenal insufficiency. Prednisone was increased to 5 mg twice daily last hospital stay Severe weakness. Needs nursing facility placement. PT eval Full code Eliquis should suffice for DVT prophylaxis Trying to get placement in this patient who has had multiple readmissions. He can benefit from nursing facility stay secondary to weakness. BMP daily. Patient on IV Lasix. Needs close follow-up electrolytes and kidney function with this potentially renal toxic medication. Attestations Medical Necessity Statement*: Needs continued hospital stay for IV antibiotics secondary to pneumonia with bacteremia. Diagnoses Pneumonia J18.9 Cardiomyopathy I42.9 Hemoptysis R04.2 Chronic obstructive pulmonary disease, unspecified COPD type J44.9 COPD type: unspecified COPD Hyperkalemia E87.5 Iron deficiency anemia secondary to inadequate dietary iron intake D50.8 Iron deficiency anemia type: inadequate dietary iron intake Acute kidney injury N17.9 Microscopic hematuria R31.29 Time Spent (min) 23
--- NOTE | 2023-10-06 11:35 | PM.DCS ---
Discharge Providers Date of Admission: 10/04/23 10:24 Date of Discharge: October 06, 2023 Attending Provider at Admission: Asaf Gaffney MD Attending Provider at Discharge: Anthony Tejeda MD Primary Care Provider: SIERRA Andrew Diagnoses at Discharge Discharge Diagnosis (1) Pneumonia: Status: Acute (2) Cardiomyopathy: Status: Acute (3) Hemoptysis: Status: Acute (4) COPD (chronic obstructive pulmonary disease): Status: Chronic Qualifiers: COPD type: unspecified COPD Qualified Code(s): J44.9 - Chronic obstructive pulmonary disease, unspecified (5) Hyperkalemia: Status: Acute (6) Iron deficiency anemia: Status: Acute Qualifiers: Iron deficiency anemia type: inadequate dietary iron intake Qualified Code(s): D50.8 - Other iron deficiency anemias (7) Acute kidney injury: Status: Acute (8) Microscopic hematuria: Status: Acute Reason for Visit Reason for Visit: sob/weak Hospital Course Hospital Course Andrew is an 83-year-old white male with history of chronic lung disease, colon cancer, severe heart failure who recently got a LifeVest placed who presented with shortness of breath. There was concern of CHF exacerbation, but also pneumonia. He was placed on IV antibiotics, cefepime and doxycycline initially. He was diuresed with IV Lasix. Chest x-ray demonstrated a right lower lobe pneumonia. During his course of his hospital stay he significantly improved. He was able to titrate down from his baseline oxygen needs. He was significantly weak, and rehab was thought to be an excellent idea. His blood culture did turn positive into his hospital course, for strep pneumonia. Repeat cultures negative. On discharge he will complete 10 more days of oral levofloxacin. Lasix will be changed to Bumex to get more consistent GI absorption. He will discharge to a nursing facility. He was given opportunity ask questions and agrees with plan. He will follow-up with the physician there, and keep his specialist appointments that are already scheduled in regards to his heart failure. He was given opportunity to ask questions and agrees with the plan. Physical Exam Narrative: General exam no distress Neck is supple Cardiovascular regular rate and rhythm Lungs coarse at the bases Abdomen is soft Extremities no cyanosis clubbing. Trace edema present bilaterally Discharge Data Studies Completed and Pending Completed Studies During Hospitalization Category Date Time Status CT chest wo con [id number] Routine Cat Scan 10/04/23 08:21 Completed XR chest 1V portable [id number] Stat Exams 10/03/23 19:58 Completed Pending at discharge Category Date Time Status BMP [Basic Metabolic Panel] AM LABS Lab 10/07/23 04:00 Ordered Blood Culture Stat Lab 10/03/23 07:06 Results Blood Culture Stat Lab 10/04/23 18:19 Results CBC Auto Diff [Complete Blood Count w/Auto] AM LABS Lab 10/07/23 04:00 Ordered COVID [SARS Covid-2 Antigen] Routine Lab 10/06/23 10:59 Uncollected Sputum Culture and Gram Stain Routine Lab 10/04/23 00:05 Results Radiology Impressions Chest X-Ray 10/03/23 19:58 IMPRESSION: 1. Interval development of mild interstitial pulmonary edema with superimposed atelectasis versus pneumonia in the right and left lower lobes. Recommend clinical correlation. Recommend followup chest imaging to insure resolution of these findings. 2. Incidental/nonacute findings are listed in the report. Chest CT 10/04/23 08:21 IMPRESSION: 1. Small RIGHT pleural effusion with dense consolidation in the RIGHT lower lobe with air bronchograms compatible with pneumonia. Recommend follow-up to resolution. 2. Trace LEFT pleural fluid. 3. Chronic emphysematous changes. 4. Cardiomegaly. 5. Small esophageal hernia. Laboratory Results WBC 10.72 10^3/uL (3.29-11.43) 10/06/23 04:40 RBC 3.50 10^6/uL (3.85-5.65) L 10/06/23 04:40 Hgb 8.10 g/dL (11.27-16.99) L 10/06/23 04:40 Hct 27.1 % (37-53) L 10/06/23 04:40 MCV 77.4 fl (82-101) L 10/06/23 04:40 MCH 23.1 pg (27-33) L 10/06/23 04:40 MCHC 29.9 g/dL (30-55) L 10/06/23 04:40 RDW 20.3 % (12.1-15.1) H 10/06/23 04:40 Plt Count 181 10^3/cmm (157-399) 10/06/23 04:40 MPV 9.5 fL (7.4-10.4) 10/06/23 04:40 Neut % (Auto) 86.6 % 10/06/23 04:40 Lymph % (Auto) 6.1 % 10/06/23 04:40 [place] % (Auto) 6.7 % 10/06/23 04:40 Eos % (Auto) 0.0 % 10/06/23 04:40 Baso % (Auto) 0.1 % 10/06/23 04:40 Neut # (Auto) 9.29 10^3/uL (1.8-7.7) H 10/06/23 04:40 Lymph # (Auto) 0.7 10^3/uL (0.8-4.8) L 10/06/23 04:40 [place] # (Auto) 0.7 10^3/uL (0.2-0.9) 10/06/23 04:40 Eos # (Auto) 0.0 10^3/uL (0.0-0.8) 10/06/23 04:40 Baso # (Auto) 0.0 10^3/uL (0.0-0.1) 10/06/23 04:40 Nucleated RBC % (auto) 0 % 10/06/23 04:40 Total Counted 100 (0-100) 10/04/23 14:32 Atypical Lymphs % 0.0 % (0-5) 10/04/23 14:32 Absolute Neutrophils 23.3 10^3/cmm (1.4-6.5) H 10/04/23 14:32 Segmented Neutrophils 65 % 10/04/23 14:32 Abs Segm Neuts (Man) 15.6 10/cmm (1.6-7.1) H 10/04/23 14:32 Band Neutrophils 32.0 % 10/04/23 14:32 Abs Band Neuts (Man) 7.7 10^3/cmm (0.0-1.2) H 10/04/23 14:32 Absolute Lymphocytes 0.0 10^3/cmm (1.2-3.4) L 10/04/23 14:32 Lymphocytes (Manual) 0 % 10/04/23 14:32 Monocytes (Manual) 3.0 % 10/04/23 14:32 Absolute Monocytes 0.7 10^3/cmm (0.1-0.6) H 10/04/23 14:32 Eosinophils (Manual) 0 % 10/04/23 14:32 Absolute Eosinophils 0.0 10^3/cmm (0.0-0.7) 10/04/23 14:32 Basophils (Manual) 0.0 % 10/04/23 14:32 Absolute Basophils 0.0 10^3/cmm (0.0-0.2) 10/04/23 14:32 Nucleated RBCs # 0.0 /100WBC 10/06/23 04:40 Platelet Estimate Normal (Normal) 10/04/23 14:32 Hypochromasia 1+ H 10/04/23 14:32 Poikilocytosis 2+ H 10/04/23 14:32 Anisocytosis 2+ H 10/04/23 14:32 Microcytosis 1+ H 10/04/23 14:32 Sodium 137 mmol/L (136-145) 10/06/23 04:40 Potassium 4.1 mmol/L (3.5-5.1) 10/06/23 04:40 Chloride 105 mmol/L (98-107) 10/06/23 04:40 Carbon Dioxide 19 mmol/L (22-29) L 10/06/23 04:40 Anion Gap 17.1 (5-19) 10/06/23 04:40 BUN 52 mg/dL (8-23) H 10/06/23 04:40 Creatinine 1.1 mg/dL (0.7-1.2) 10/06/23 04:40 GFR Calculation Not Reportable 10/06/23 04:40 Glucose 130 mg/dL (65-115) H 10/06/23 04:40 POC Glucose 202 mg/dL (70-110) H 10/05/23 17:10 Calculated Osmolality 300 mOsm/kg (285-295) H 10/06/23 04:40 Lactic Acid 1.7 mmol/L (0.5-2.2) 10/03/23 20:23 Calcium 8.4 mg/dL (8.5-10.5) L 10/06/23 04:40 Magnesium 2.2 mg/dL (1.7-2.3) 10/06/23 04:40 Iron 7 ug/dL (59-158) L 10/04/23 07:06 TIBC 261 mcg/dl 10/04/23 07:06 % Saturation 2.6 % (20-50) L 10/04/23 07:06 Unsat Iron Binding 254 ug/dL (112-347) 10/04/23 07:06 Ferritin 90 ng/mL (30-400) 10/04/23 07:06 Total Bilirubin 0.4 mg/dL (0.15-1.2) 10/06/23 04:40 AST 26 U/L (0-40) 10/06/23 04:40 ALT 35 U/L (0-41) 10/06/23 04:40 Alkaline Phosphatase 166 U/L (40-130) H 10/06/23 04:40 C-Reactive Protein 239.1 mg/L (0.0-4.9) H 10/04/23 07:06 NT-Pro-B Natriuret Pep 36436 pg/mL (0-450) H 10/03/23 20:23 Total Protein 5.7 g/dL (6.6-8.7) L 10/06/23 04:40 Albumin 2.6 g/dL (3.5-5.2) L 10/06/23 04:40 Globulin 3.1 g/dL (1.3-4.6) 10/06/23 04:40 Urine Color Dark yellow (Yellow) A 10/04/23 00:05 Urine Appearance Cloudy (CLEAR) A 10/04/23 00:05 Urine pH 5 (5-7) 10/04/23 00:05 Ur Specific [place] 1.020 (1.005-1.030) 10/04/23 00:05 Urine Protein Trace (Negative) 10/04/23 00:05 Urine Glucose (UA) Norm (Normal) 10/04/23 00:05 Urine Ketones Negative (Negative) 10/04/23 00:05 Urine Blood 3+ (Negative) H 10/04/23 00:05 Urine Nitrate Negative (Negative) 10/04/23 00:05 Urine Bilirubin Neg (Negative) 10/04/23 00:05 Urine Urobilinogen Neg mg/dL (Negative) 10/04/23 00:05 Ur Leukocyte Esterase Negative (Negative) 10/04/23 00:05 Urine RBC 80-100 /hpf (0-2) H 10/04/23 00:05 Urine WBC 5-10 /hpf (0-5) H 10/04/23 00:05 Ur Squamous Epith Cells 0-4 /hpf (0-5) H 10/04/23 00:05 Amorphous Sediment Not Reportable 10/04/23 00:05 Urine Bacteria 2+ /hpf (NONE) H 10/04/23 00:05 Hyaline Casts 0-4 /lpf H 10/04/23 00:05 Urine Mucus 1+ /hpf 10/04/23 00:05 Adenovirus (PCR) Not detected (NOT DETECT) 10/04/23 15:58 C. pneumoniae DNA (PCR) Not detected (NOT DETECT) 10/04/23 15:58 Coronavirus 229E (PCR) Not detected (NOT DETECT) 10/04/23 15:58 Human Metapneumovir PCR Not detected (NOT DETECT) 10/04/23 15:58 Influenza A (H1) PCR Not detected (NOT DETECT) 10/04/23 15:58 Influ A (H1/09) PCR Not detected (NOT DETECT) 10/04/23 15:58 Influenza A (H3) PCR Not detected (NOT DETECT) 10/04/23 15:58 Influenza Type A (PCR) Not detected (NOT DETECT) 10/04/23 15:58 Influenza Type B (PCR) Not detected (NOT DETECT) 10/04/23 15:58 M. pneumoniae (PCR) Not detected (NOT DETECT) 10/04/23 15:58 Parainfluenza 1 (PCR) Not detected (NOT DETECT) 10/04/23 15:58 Parainfluenza 2 (PCR) Not detected (NOT DETECT) 10/04/23 15:58 Parainfluenza 3 (PCR) Not detected (NOT DETECT) 10/04/23 15:58 Parainfluenza 4 (PCR) Not detected (NOT DETECT) 10/04/23 15:58 RSV Type A (PCR) Not detected (NOT DETECT) 10/04/23 15:58 RSV Type B (PCR) Not detected (NOT DETECT) 10/04/23 15:58 Entero/Rhino (PCR) Not detected (NOT DETECT) 10/04/23 15:58 SARS-CoV-2 (PCR) Not detected (NOT DETECT) 10/04/23 15:58 MRSA (PCR) Not detected (NOT DETECTED) 10/04/23 15:58 Blood Type O Positive 10/05/23 08:12 Rho(D) Type Rh positive 10/05/23 08:12 Antibody Screen Negative 10/05/23 08:12 Crossmatch See Detail 10/05/23 08:12 Vitals Last Vital Signs Temp 97.5 F L 10/06/23 11:23 Pulse 61 10/06/23 11:23 Resp 18 10/06/23 11:23 BP 117/59 10/06/23 11:23 Pulse Ox 99 10/06/23 11:23 O2 Del Method Nasal Cannula 10/06/23 11:23 O2 Flow Rate 3 10/06/23 11:04 Discharge Plan Discharge Patient Disposition: Xfer SNF Condition: Stable Prescriptions: New levofloxacin 750 mg tablet 750 mg PO DAILY 10 Days Qty: 10 0RF bumetanide 1 mg tablet 1 mg PO BID Qty: 60 0RF Continued (DME) Easy Touch Safety Lancets 32 gauge misc See Rx Instructions .Route Qty: 100 2RF Rx Instructions: use 3 times day as needed (DME) pen needle, diabetic [BD Ultra-Fine Domi Pen Needle] 32 gauge x 5/32 needle See Rx Instructions .ROUTE .MEDSUPPLY Qty: 100 5RF Rx Instructions: 3 times day as needed (DME) Easy Touch BluLink Test Strip Strip See Rx Instructions .Route Qty: 50 5RF Rx Instructions: As directed Fasenra Pen 30 mg/mL auto-injector 30 mg SUBCUT .8 weeks Qty: 1 6RF Hold Instructions: Resume on 07/19/23. Rx Instructions: maintenance dose Eliquis 5 mg tablet 5 mg PO BID Qty: 60 2RF Adult Low Dose Aspirin 81 mg tablet,delayed release (DR/EC) 81 mg PO QAM Qty: 30 5RF Breztri Aerosphere 160-9-4.8 mcg/actuation HFA aerosol inhaler 2 inh inhalation BID Qty: 10.7 2RF fluticasone propionate 50 mcg/actuation spray,suspension 2 spray INTRANASAL DAILY Qty: 9.9 2RF ipratropium-albuterol 0.5 mg-3 mg(2.5 mg base)/3 mL solution for nebulization 3 ml inhalation Q4H PRN (Reason: shortness of breath or wheezing) Qty: 300 2RF levocetirizine 5 mg tablet 5 mg PO DAILY Qty: 90 0RF metoprolol succinate 25 mg tablet extended release 24 hr 25 mg PO QAM Qty: 90 0RF Rx Instructions: note dose decrease if heart less 60 use 1/2 tablet montelukast 10 mg tablet 10 mg PO QAM Qty: 90 0RF omeprazole 40 mg capsule,delayed release(DR/EC) 40 mg PO QAM Qty: 30 2RF Daliresp 500 mcg tablet 500 mcg PO QAM Qty: 30 2RF rosuvastatin 40 mg tablet 40 mg PO DAILY 30 Days Qty: 30 2RF semaglutide 0.25 mg or 0.5 mg (2 mg/3 mL) pen injector 0.25 mg SUBCUT Q7D Qty: 3 2RF Rx Instructions: on wednesday sucralfate [Carafate] 1 gram tablet 1 g PO BID Qty: 60 2RF Flomax 0.4 mg capsule 0.4 mg PO BEDTIME Qty: 30 2RF magnesium hydroxide [Milk of Magnesia] 400 mg/5 mL suspension 15 ml PO DAILY PRN (Reason: constipation) Qty: 355 2RF ferrous sulfate 324 mg (65 mg iron) tablet,delayed release (DR/EC) 324 mg PO DAILY Qty: 30 1RF (DME) Commode Chair E0163 See Rx Instructions .Route .MEDSUPPLY Qty: 1 0RF Rx Instructions: As directed ascorbic acid (vitamin C) [Vitamin C] 500 mg Tablet 500 mg PO DAILY Probiotic Blend 2 billion cell-50 mg Capsule 1 cap PO BID Rx Instructions: give with meal/snack finasteride [Proscar] 5 mg tablet 5 mg PO QAM Entresto 24-26 mg Tablet 1 tab PO BID Qty: 60 0RF spironolactone 25 mg Tablet 25 mg PO DAILY Qty: 30 0RF prednisone 5 mg tablet 5 mg PO BID Qty: 30 3RF albuterol sulfate 90 mcg/actuation HFA aerosol inhaler 2 puff INHALATION Q4H PRN (Reason: Shortness Of Breath) finasteride 5 mg tablet 5 mg PO QAM Discontinued nortriptyline 50 mg capsule 50 mg PO BEDTIME Qty: 30 2RF cinnamon bark [Cinnamon] 500 mg Capsule 500 mg PO DAILY omega-3 fatty acids 1,000 mg Capsule 1,000 mg PO BID furosemide 40 mg tablet 40 mg PO BID Discharge Orders: Discharge Order (Routine); Ordered 10/06/23 Ordered By: Anthony Tejeda Referrals: Jordy Singer, SPINE SPECIALIST-C [Primary Care Provider] - 10/11/23 2:20 pm Discharge Diet: Cardiac Activity Restrictions/Additional Instructions: To see nurse practitioner provider at senior living within 3 to 5 days CBC, BMP on Wednesday. Hemoglobin on discharge from the hospital was 8.1, creatinine 1.1 Oxygen 3 L per nasal cannula, titrate for sat greater than or equal to 90% Keep follow-up as previously scheduled with cardiology Take all medicine as prescribed Discharge Attestations Time Spent in Discharge Care*: greater than 30 min Status at Discharge: Cognitive status at discharge: cognitively intact, Behavioral status at discharge: cooperative, Quality Metrics Clinical Quality Measures [ No reported AMI, CVA or VTE this stay] Coding Level of Care Code 19127 Total time (in minutes) for Discharge: 40 Diagnoses Pneumonia J18.9 Cardiomyopathy I42.9 Hemoptysis R04.2 Chronic obstructive pulmonary disease, unspecified COPD type J44.9 COPD type: unspecified COPD Hyperkalemia E87.5 Iron deficiency anemia secondary to inadequate dietary iron intake D50.8 Iron deficiency anemia type: inadequate dietary iron intake Acute kidney injury N17.9 Microscopic hematuria R31.29
[2023-10-06 13:14] LABS: SARS Covid-2 Antigen negative (Negative)
--- NOTE | 2023-10-06 14:23 | PC.NURSE ---
Called report to Sumi Quintana LPN at [facility], [place] at [phone]
[2023-10-06 21:25] LABS: Glucose Point of Care 117 mg/dL (70-110)
== END 2023-10-06 14:08 | disposition skilled nursing facility (03) | DRG 193 ==
LOC: ER 21:18 → MEDSURG 22:28
PROVIDERS: Internal Medicine; Admitting Provider Internal Medicine; Emergency Provider Emergency Medicine; PCP Nurse Practitioner; Visit Provider Internal Medicine
DX: J18.9 Pneumonia, unspecified organism (principal); I50.31 Acute diastolic (congestive) heart failure; I42.8 Other cardiomyopathies; N17.9 Acute kidney failure, unspecified; R78.81 Bacteremia; R04.2 Hemoptysis; D68.32 Hemorrhagic disorder due to extrinsic circulating anticoagulants; I11.0 Hypertensive heart disease with heart failure; Z95.0 Presence of cardiac pacemaker; Z99.81 Dependence on supplemental oxygen; E78.5 Hyperlipidemia, unspecified; F41.1 Generalized anxiety disorder; K21.9 Gastro-esophageal reflux disease without esophagitis; J44.9 Chronic obstructive pulmonary disease, unspecified; E11.9 Type 2 diabetes mellitus without complications; Z86.711 Personal history of pulmonary embolism; Z79.01 Long term (current) use of anticoagulants; D50.8 Other iron deficiency anemias; R31.29 Other microscopic hematuria; Z79.52 Long term (current) use of systemic steroids; E87.5 Hyperkalemia; B95.3 Streptococcus pneumoniae as the cause of diseases classified elsewhere; T45.515A Adverse effect of anticoagulants, initial encounter
CPT/HCPCS: 36415; 36416; 36430; 71045; 71250; 80048; 80053; 81001; 82728; 82962; 83540; 83550; 83605; 83735; 83880; 85007; 85014; 85018; 85025; 86140; 86850; 86900; 86920; 87040; 87070; 87077; 87086; 87150; 87186; 87205; 87426; 87486; 87581; 87633; 87641; 92610; 93005; 94640; 94664; 96365; 96375; 97116; 97161; 99285; G0378; J0456; J0692; J0696; J1756; J1940; J2405; J3370; J7050; J7512; J7626; P9016

== ENCOUNTER 2023-10-22 06:00 | Outpatient (CLI) | payer MEDICARE, MEDICAID, SELFPAY | END 2023-10-22 06:01 | disposition home or self-care (01) | PROVIDERS: PCP Nurse Practitioner; Visit Provider Nurse Practitioner Family | DX: Z09 Encounter for follow-up examination after completed treatment for conditions other than malignant neoplasm (principal) | CPT/HCPCS: 99213 ==

== ENCOUNTER → 2023-11-09 15:16 | Outpatient (BNVA) | payer MEDICARE, MEDICAID, SELFPAY | PROVIDERS: PCP Nurse Practitioner; Visit Provider Nurse Practitioner | DX: R31.29 Other microscopic hematuria (principal) | CPT/HCPCS: 81000 ==

== ENCOUNTER 2023-11-16 19:42 | Emergency (ER) | payer MEDICARE, MEDICAID, SELFPAY ==
[2023-11-16] VITALS (50 sets, daily range): BP systolic 87–118; BP diastolic 39–59; PULSE 60–83; RESP 13–25; TEMP 36.6; O2SAT 85–100; BMI 23.8
--- NOTE | 2023-11-16 19:43 | ECG_ITS ---
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 Measurements Intervals [place] Rate: 75 P: 0 DE: 0 QRS: -66 QRSD: 212 T: 116 QT: 464 QTc: 518 Interpretive Statements ELECTRONIC VENTRICULAR PACEMAKER Compared to ECG 10/03/2023 19:57:37 No significant changes Electronically Signed On 11-17-2023 8:04:54 CDT by Jose Mendiola M.D. [id number]
--- NOTE | 2023-11-16 19:54 | XRR_ITS ---
PROCEDURE INFORMATION: Exam: XR Chest Exam date and time: 11/16/2023 8:01 PM Age: 83 years old Clinical indication: Pain; Chest pressure; Prior surgery; Surgery date: 6+ months; Surgery type: Pacemaker; Additional info: Chest pain TECHNIQUE: Imaging protocol: Radiologic exam of the chest. Views: 1 view. COMPARISON: CT chest con [id number] 10/04/2023 9:08 AM FINDINGS: Tubes, catheters and devices: Left pectoral pacemaker leads overlie the right atrium and right ventricle. Lungs: Minimal retrocardiac atelectasis. No focal consolidations. Pleural spaces: No pleural effusion. No pneumothorax. Heart/Mediastinum: Cardiomegaly. Bones/joints: Unremarkable. XR/XR chest 1V portable [id number] IMPRESSION: Minimal retrocardiac atelectasis. No focal consolidations.
[2023-11-16 20:07] LABS: Basophils % 0.2 %; Hematocrit 37.8 % (37-53); Lymphocytes # 0.6 10^3/uL (0.8-4.8); Lymphocytes % 5.3 %; Mean Corpuscular HGB Conc 30.7 g/dL (30-55); Mean Corpuscular Hemoglobin 24.8 pg (27-33); Mean Corpuscular Volume 80.8 fl (82-101); Mean Platelet Volume 8.2 fL (7.4-10.4); Monocytes # 0.9 10^3/uL (0.2-0.9); Monocytes % 7.9 %; Neutrophils # 10.08 10^3/uL (1.8-7.7); Neutrophils % 86.2 %; Nucleated Red Blood Cells % 0 %; Platelet Count 228 10^3/cmm (157-399); Red Blood Count 4.68 10^6/uL (3.85-5.65); Red Cell Distribution Width 22.7 % (12.1-15.1)
[2023-11-16 20:27] LABS: Troponin(5th) Baseline 71 ng/L (0-15)
[2023-11-16 20:32] LABS: Anion Gap 16.1 (5-19); Blood Urea Nitrogen 28 mg/dL (8-23); Calcium 8.4 mg/dL (8.5-10.5); Carbon Dioxide 28 mmol/L (22-29); Chloride 96 mmol/L (98-107); Creatinine Clr Calc Pharmacy 51.1565; Glucose 162 mg/dL (65-115); NT Pro B Type Natriuretic Pept 3769 pg/mL (0-450); Osmolality Calculated 291 mOsm/kg (285-295); Potassium 4.1 mmol/L (3.5-5.1); Sodium 136 mmol/L (136-145)
[2023-11-16 21:06] LABS: Charge for UA Resulting for Rev
[2023-11-16 21:09] LABS: Bilirubin Urine Negative (Negative); Blood Urine Non-haemolysed trace (Negative); Glucose Urine UA Negative (Normal); Ketones Urine Negative (Negative); Leukocyte Esterase Urine Trace (Negative); Nitrate Urine Negative (Negative); Protein Urine 1+ (Negative); Specific Gravity, Urine 1.012 (1.005-1.030); Urine Appearance Clear (CLEAR); Urine Color Yellow (Yellow)
[2023-11-16 21:14] LABS: Bacteria Urine None Seen /hpf; Hyaline Casts Urine 12.41 /lpf; RBC Urine 21-50 /hpf (0-2); Squamous Epithelial Cell Urine 0-5 /hpf (0-5)
--- NOTE | 2023-11-16 21:30 | PC.NURSE ---
In room with ED physician. Physician obtained a stool sample for a guaiac test. test was negative.
[2023-11-16 21:34] LABS: Add Urine Culture? Yes; UA Slide Review UA Slide Review Perf
--- NOTE | 2023-11-16 21:54 | ECG_ITS ---
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 Measurements Intervals [place] Rate: 63 P: 246 [place]: 198 QRS: -69 QRSD: 217 T: 122 QT: 488 QTc: 503 Interpretive Statements ELECTRONIC VENTRICULAR PACEMAKER Compared to ECG 11/16/2023 19:49:11 No significant changes Electronically Signed On 11-17-2023 8:03:37 CDT by Jose Mendiola M.D. [id number]
[2023-11-16 22:29] LABS: Troponin 5 2HR 76.02 ng/L (0-15); Troponin 5 2HR Delta 5.02 ABS# (0-10)
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
--- NOTE | 2023-11-16 23:08 | PC.NURSE ---
pt is discharged but unable to get a ride home. pt is on home O2 and is wearing a life vest. Pt will remain in the room until transportation can be gotten in the morning
[2023-11-17] VITALS (7 sets, daily range): BP systolic 89–93; BP diastolic 36–37; PULSE 60–78; RESP 13–30; O2SAT 88–100
== END 2023-11-17 00:36 | disposition home or self-care (01) ==
PROVIDERS: Emergency Provider Emergency Medicine; PCP Nurse Practitioner
DX: R07.89 Other chest pain (principal); Z85.038 Personal history of other malignant neoplasm of large intestine; I11.0 Hypertensive heart disease with heart failure; I50.9 Heart failure, unspecified; Z95.0 Presence of cardiac pacemaker; E78.5 Hyperlipidemia, unspecified; J44.9 Chronic obstructive pulmonary disease, unspecified
CPT/HCPCS: 36415; 71045; 80048; 81003; 81015; 83880; 84484; 85025; 87086; 93005; 99285

== ENCOUNTER → 2023-12-13 14:53 | Outpatient (BNVA) | payer MEDICARE, MEDICAID, SELFPAY | PROVIDERS: PCP Nurse Practitioner; Visit Provider Nurse Practitioner | DX: D50.8 Other iron deficiency anemias | CPT/HCPCS: 83540; 85025 ==

== ENCOUNTER → 2023-12-23 09:49 | Outpatient (BNVA) | payer MEDICARE, MEDICAID, SELFPAY | PROVIDERS: PCP Nurse Practitioner; Visit Provider Internal Medicine | DX: I25.10 Atherosclerotic heart disease of native coronary artery without angina pectoris (principal); Z95.5 Presence of coronary angioplasty implant and graft; I13.0 Hypertensive heart and chronic kidney disease with heart failure and stage 1 through stage 4 chronic kidney disease, or unspecified chronic kidney disease; E11.22 Type 2 diabetes mellitus with diabetic chronic kidney disease; Z79.4 Long term (current) use of insulin; N18.2 Chronic kidney disease, stage 2 (mild); I50.22 Chronic systolic (congestive) heart failure; Z95.0 Presence of cardiac pacemaker; I25.41 Coronary artery aneurysm; R06.02 Shortness of breath; E78.5 Hyperlipidemia, unspecified; J44.9 Chronic obstructive pulmonary disease, unspecified | CPT/HCPCS: 99214 ==

== ENCOUNTER → 2024-02-14 14:25 | Outpatient (BNVA) | payer MEDICARE, MEDICAID, SELFPAY | PROVIDERS: PCP Nurse Practitioner; Visit Provider Nurse Practitioner | DX: I10 Essential (primary) hypertension; I50.22 Chronic systolic (congestive) heart failure; E11.22 Type 2 diabetes mellitus with diabetic chronic kidney disease; Z79.4 Long term (current) use of insulin; E61.1 Iron deficiency; E55.9 Vitamin D deficiency, unspecified | CPT/HCPCS: 80053; 82306; 82607; 83036; 83540; 83880; 84443; 85025 ==

== ENCOUNTER 2024-02-25 03:54 | Observation (INO) | payer MEDICARE, MEDICAID, SELFPAY ==
[2024-02-25] VITALS (119 sets, daily range): BP systolic 84–152; BP diastolic 38–98; PULSE 71–98; RESP 15–20; TEMP 36.3–36.5; O2SAT 87–100; BMI 24.4
--- NOTE | 2024-02-25 04:02 | XRR_ITS ---
PROCEDURE INFORMATION: Exam: XR Chest Exam date and time: 02/25/2024 4:41 AM Age: 83 years old Clinical indication: Shortness of breath; Prior surgery; Surgery date: 1-6 months; Surgery type: Dual pacer/defibrillator; Additional info: Chest pain TECHNIQUE: Imaging protocol: Radiologic exam of the chest. Views: 1 view. COMPARISON: CR XR chest 1V portable [id number] 11/16/2023 8:01 PM FINDINGS: Tubes, catheters and devices: Stable appearing pacemaker. Lungs: No focal consolidation. Pleural spaces: Unremarkable. No pleural effusion. No pneumothorax. Heart/Mediastinum: Stable appearing postprocedural changes of the mediastinum to include curvilinear densities over the heart. Bones/joints: Diffuse degenerative change of the visualized osseous structures. XR/XR chest 1V portable [id number] IMPRESSION: No acute cardiopulmonary findings.
--- NOTE | 2024-02-25 04:05 | ECG_ITS ---
[facility] Test Date: 2024-02-25 Pat Name: Andrew Sainz Department: Room: Gender: Male [employer] Manager: : 1940 Requested By: Ada Urias Order Number: [id number] Babatunde MD: Alli Quinn M.D. Measurements Intervals [place] Rate: 83 P: 102 DE: 213 QRS: -75 QRSD: 205 T: 103 QT: 449 QTc: 528 Interpretive Statements ELECTRONIC VENTRICULAR PACEMAKER ABNORMAL RHYTHM ECG Compared to ECG 11/16/2023 21:55:31 No significant changes Electronically Signed On 02-25-2024 16:51:13 ASSOCIATE PROFESSOR OF THEOLOGY by Alli Quinn M.D. [email or web address]
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
[2024-02-25 04:38] LABS: Basophils % 0.1 %; Hematocrit 32.6 % (37-53); Lymphocytes # 0.7 10^3/uL (0.8-4.8); Lymphocytes % 8.2 %; Mean Corpuscular HGB Conc 29.8 g/dL (30-55); Mean Corpuscular Hemoglobin 26.5 pg (27-33); Mean Corpuscular Volume 89.1 fl (82-101); Mean Platelet Volume 8.6 fL (7.4-10.4); Monocytes # 0.7 10^3/uL (0.2-0.9); Neutrophils # 6.62 10^3/uL (1.8-7.7); Neutrophils % 82.1 %; Nucleated Red Blood Cells % 0 %; Platelet Count 225 10^3/cmm (157-399); Red Blood Count 3.66 10^6/uL (3.85-5.65); Red Cell Distribution Width 15.2 % (12.1-15.1); White Blood Count 8.07 10^3/uL (3.29-11.43)
[2024-02-25 04:59] LABS: Troponin(5th) Baseline 98 ng/L (0-15)
[2024-02-25 05:07] LABS: Alanine Aminotransferase 16 U/L (0-41); Albumin Level 2.9 g/dL (3.5-5.2); Alkaline Phosphatase 62 U/L (40-130); Anion Gap 12.2 (5-19); Aspartate Amino Transferase 15 U/L (0-40); Blood Urea Nitrogen 53 mg/dL (8-23); Calcium 7.8 mg/dL (8.5-10.5); Carbon Dioxide 31 mmol/L (22-29); Chloride 99 mmol/L (98-107); Creatinine Clr Calc Pharmacy 45.5822; Globulin 1.9 g/dL (1.3-4.6); Glucose 118 mg/dL (65-115); Osmolality Calculated 303 mOsm/kg (285-295); Potassium 3.2 mmol/L (3.5-5.1); Sodium 139 mmol/L (136-145); Total Bilirubin 0.2 mg/dL (0.15-1.2); Total Protein 4.8 g/dL (6.6-8.7)
[2024-02-25 05:09] LABS: NT Pro B Type Natriuretic Pept 1871 pg/mL (0-450)
--- NOTE | 2024-02-25 06:30 | ECG_ITS ---
[facility] Test Date: 2024-02-25 Pat Name: Andrew Sainz Department: Room: Gender: Male Research Compliance Specialist: : 1940 Requested By: Ada Urias Order Number: [id number] Babatunde MD: Alli Quinn M.D. Measurements Intervals [place] Rate: 78 P: 89 ND: 196 QRS: -75 QRSD: 206 T: 102 QT: 445 QTc: 508 Interpretive Statements ELECTRONIC VENTRICULAR PACEMAKER ATRIAL-SENSED VENTRICULAR-PACED COMPLEXES ABNORMAL RHYTHM ECG Compared to ECG 02/25/2024 04:05:56 No significant changes Electronically Signed On 02-25-2024 16:58:50 CONTROL PANEL ASSEMBLER by Alli Quinn M.D. [email or web address]
[2024-02-25 06:59] LABS: Troponin 5 2HR 92.04 ng/L (0-15)
[2024-02-25 07:01] LABS: Troponin 5 2HR Delta -5.96 ABS# (0-10)
--- NOTE | 2024-02-25 09:13 | USCV_ITS ---
Andrew Sainz Age: 83 Gender: M : 1940 Exam Date: 02/25/2024 17:18 Ordering Phys: Anthony Tejeda MD Technologist: Erasto Sosa Exam Location: [facility] [place] Indication: shocked by life vest BP: 137 / 97 HR: Rhythm: Sinus Technical Quality: Adequate MEASUREMENTS (Male / Female) Normal Values 2D ECHO LV Diastolic Diameter PLAX 5.4 cm 4.2 - 5.9 / 3.9 - 5.3 cm IVS Diastolic Thickness 1.3 cm 0.6 - 1.0 / 0.6 - 0.9 cm IVS Systolic Thickness 1.6 cm LVPW Diastolic Thickness 1.9 cm 0.6 - 1.0 / 0.6 - 0.9 cm LVPW Systolic Thickness 1.8 cm LV Ejection Fraction 2D Teich 31.9 % LV Ejection Fraction MOD 4C 26.7 % LV Ejection Fraction MOD 2C 30.2 % LV Ejection Fraction 2C AL 28.2 % LA Diameter 4.2 cm RA Systolic Volume 4C AL 55.0 ml RA Systolic Volume 4C MOD 52.8 ml LA Sys Volume AL 66.9 cm cubed LA Sys Volume Index AL 32.3 cm cubed/m squared Aorta at Sinotubular Diameter 2.8 cm IVC Diameter 1.5 cm M-MODE LA Ao Ratio MM 1.2 AV Cusp Separation MM 2.5 cm FINDINGS Left Ventricle Moderately increased left ventricular cavity size. Severely decreased left ventricular systolic function. Left ventricular ejection fraction is estimated at 30 %. There appeared to be anterior anteroseptal wall severe hjypokinesis Right Ventricle Normal right ventricular size. Catheter/pacemaker wire visualized in the right ventricle. Right Atrium Left Atrium Mitral Valve Aortic Valve Tricuspid Valve Pulmonic Valve Pericardium Aorta IVC CONCLUSIONS Limited echo Moderately increased left ventricular cavity size. Severely decreased left ventricular systolic function. Left ventricular ejection fraction is estimated at 30 %. There appeared to be anterior anteroseptal wall severe hjypokinesis. Normal right ventricular size. Catheter/pacemaker wire visualized in the right ventricle. There is no pericardial effusion. Asaf Scott MD (Electronically Signed) Final Date: 26 February 2024 00:11 S
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
[2024-02-25 09:36] LABS: Magnesium 1.8 mg/dL (1.7-2.3)
--- NOTE | 2024-02-25 10:33 | PC.PHAR ---
Patient wasn't sure of medication names .Patient stated someone came put them in his pill box and he just takes them. Patient wasn't sure what Facility that person came from . I verified all meds with Ricardo Negrete . Pharmacy stated last fill on his regular monthly meds is 02/23/24. Patient has yet to pick them up . Pharmacy did state they were waiting on refill ok on a few of the meds .
[2024-02-25] MEDS: potassium chloride ER 20 mEq Tablet 40 MEQ PO (11:12)
[2024-02-25 11:24] LABS: Troponin 5 6HR Delta 5.8 ng/L (0-12)
--- NOTE | 2024-02-25 11:41 | ECG_ITS ---
[facility] Date: 2024-02-25 Pat Name: Andrew Sainz Department: Room: [facility] Gender: Male Neuropsychologist: : 1940 Requested By: Ada Urias Order Number: [id number] MD: Alli Quinn M.D. Measurements Intervals [place] Rate: 76 P: 91 ME: 197 QRS: -72 QRSD: 205 T: 107 QT: 445 QTc: 503 Interpretive Statements ELECTRONIC VENTRICULAR PACEMAKER ATRIAL-SENSED VENTRICULAR-PACED COMPLEXES ABNORMAL RHYTHM ECG Compared to ECG 02/25/2024 06:30:58 No significant changes Electronically Signed On 02-25-2024 16:59:06 FILM COATER by Alli Quinn M.D. [email or web address]
[2024-02-25 11:59] LABS: Troponin 5 6HR 103.8 ng/L (0-15)
[2024-02-25] MEDS: ipratropium-albuterol 3 mL Neb INHALATION ×2 (13:44→20:54)
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
[2024-02-25 16:56] LABS: Glucose Point of Care 111 mg/dL (70-110)
[2024-02-25] MEDS: sucralfate 1 gm Tablet PO (17:04)
[2024-02-25] MEDS: apixaban 5 mg Tablet 2.5 MG PO (17:05)
[2024-02-25 17:20] LABS: Glucose Point of Care 112 mg/dL (70-110)
--- NOTE | 2024-02-25 19:16 | PC.NURSE ---
Received patient from ER staff at approximately 0855. Patient is oriented to person, place, time, and situation. BP: 115/60. HR: 84, SPO2: 98% on 4LNC, Temp: 97.3
--- NOTE | 2024-02-25 19:17 | PC.NURSE ---
Patient was shocked by hi life vest, indicated by blue dye on chest. Patient has had the life vest for many months, but [facility] has received no data transmission from the lifevest/patent law specialist, and [facility] had been unable to make contact with the patient as he has no cell service at his home. [employer] eventually deactivated his profile. Currently [facility] is working on reactivating his profile and possibly sending another transmitter/graphic design manager in case another life vest is needed..... Patient's pacemaker was interrogated today and we are waiting on the report. [facility]: [phone] option 1
[2024-02-25 20:09] LABS: Glucose Point of Care 157 mg/dL (70-110)
[2024-02-25] MEDS: insulin lispro 100 unit/1 mL SUBCUT (20:28)
[2024-02-25] MEDS: atorvastatin 40 mg Tablet PO (20:28)
[2024-02-25] MEDS: tamsulosin 0.4 mg Capsule PO (20:28)
[2024-02-25] MEDS: acetaminophen 325 mg Tablet 650 MG PO (20:28)
[2024-02-25] MEDS: budesonide 0.5 mg/2 mL Neb INHALATION (20:54)
[2024-02-25] MEDS: fluticasone nasal spray 16gm Btl 1 SPRAY NASAL (23:48)
[2024-02-26] VITALS (87 sets, daily range): BP systolic 81–135; BP diastolic 38–66; PULSE 62–99; RESP 12–18; TEMP 35.7–36.8; O2SAT 76–100
[2024-02-26] MEDS: ipratropium-albuterol 3 mL Neb INHALATION ×3 (01:31→14:06)
[2024-02-26 04:47] LABS: Basophils % 0.1 %; Hematocrit 33.3 % (37-53); Lymphocytes # 0.9 10^3/uL (0.8-4.8); Lymphocytes % 11.2 %; Mean Platelet Volume 8.9 fL (7.4-10.4); Monocytes # 0.9 10^3/uL (0.2-0.9); Monocytes % 11.1 %; Neutrophils # 5.98 10^3/uL (1.8-7.7); Neutrophils % 77.1 %; Nucleated Red Blood Cells % 0 %; Platelet Count 218 10^3/cmm (157-399); Red Cell Distribution Width 15.2 % (12.1-15.1); White Blood Count 7.76 10^3/uL (3.29-11.43)
[2024-02-26 05:09] LABS: Alanine Aminotransferase 17 U/L (0-41); Albumin Level 2.9 g/dL (3.5-5.2); Alkaline Phosphatase 68 U/L (40-130); Aspartate Amino Transferase 15 U/L (0-40); Blood Urea Nitrogen 45 mg/dL (8-23); Calcium 9.4 mg/dL (8.5-10.5); Carbon Dioxide 32 mmol/L (22-29); Chloride 102 mmol/L (98-107); Creatinine Clr Calc Pharmacy 53.8111; Glucose 122 mg/dL (65-115); Osmolality Calculated 305 mOsm/kg (285-295); Sodium 141 mmol/L (136-145); Total Bilirubin 0.3 mg/dL (0.15-1.2); Total Protein 5.9 g/dL (6.6-8.7)
[2024-02-26] MEDS: metoprolol succinate ER (24 HR) 25 mg Tablet PO (05:42)
[2024-02-26] MEDS: pantoprazole DR 40 mg Tablet PO (05:42)
[2024-02-26] MEDS: montelukast sodium 10 mg Tablet PO (05:42)
[2024-02-26] MEDS: roflumilast 500 mcg Tablet PO (05:42)
[2024-02-26] MEDS: budesonide 0.5 mg/2 mL Neb INHALATION (07:51)
[2024-02-26 07:54] LABS: Glucose Point of Care 109 mg/dL (70-110)
[2024-02-26] MEDS: apixaban 5 mg Tablet 2.5 MG PO (08:06)
[2024-02-26] MEDS: predniSONE 5 mg Tablet PO (08:07)
[2024-02-26] MEDS: aspirin 81 mg EC Tablet PO (08:07)
[2024-02-26] MEDS: sucralfate 1 gm Tablet PO (08:07)
[2024-02-26] MEDS: cetirizine 10 mg Tablet 5 MG PO (08:07)
[2024-02-26] MEDS: finasteride 5 mg Tablet PO (08:08)
[2024-02-26] MEDS: bumetanide 1 mg Tablet PO (08:08)
[2024-02-26] MEDS: spironolactone 25 mg Tablet PO (08:09)
[2024-02-26] MEDS: amiodarone 200 mg Tablet 400 MG PO (09:26)
[2024-02-26] MEDS: metOLazone 5 MG Tablet PO (09:26)
--- NOTE | 2024-02-26 11:02 | P.PN_ITS ---
Subjective 2 Subjective: No overnight events including ventricular tachycardia . Vitals/I&O/Wt Last Vital Signs Temp 97.1 F L 02/26/24 08:30 Pulse 76 02/26/24 10:10 Resp 18 02/26/24 07:51 BP 116/61 02/26/24 10:10 Pulse Ox 99 02/26/24 10:10 O2 Del Method Nasal Cannula 02/26/24 10:05 O2 Flow Rate 2 02/26/24 10:05 02/25/24 02/26/24 02/26/24 22:59 06:59 14:59 Intake Total 360 / 360 120 / 480 360 / 360 Output Total 300 / 550 625 / 1175 Balance 60 / -190 -505 / -695 360 / 360 Weight last 48 hrs Weight 165 lb 5.547 oz Weight 185 lb 3.013 oz Weight 180 lb Physical Exam 2 Const: OTHER: GENERAL: Patient is alert, awake and oriented x3. HEART: Regular S1 and S2. No murmur, rub or gallop. LUNGS: Clear to auscultate bilaterally. CENTRAL NERVOUS SYSTEM: Grossly nonfocal. EXTREMITIES: Lower extremities with out edema bilaterally Data 02/26/24 03:57 02/26/24 03:57 A&P Assessment and plan (1) CHF (congestive heart failure): Patient is overcompensated and dry. He was hypotensive in order to compensate for Entresto. Aldactone will reduce metolazone to 2.5 mg. Creatinine has improved. Qualifiers: Heart failure type: systolic Heart failure chronicity: chronic Qualified Code(s): I50.22 - Chronic systolic (congestive) heart failure (2) Presence of cardiac pacemaker: Working a night good standing (3) Essential (primary) hypertension: Patient is rather on the lower side of the blood pressure. Stopping Aldactone and reducing metolazone will help. Continue Entresto metoprolol and Bumex (4) Cardiomyopathy: Patient is on guideline medical therapy for heart failure ejection fraction limited echocardiogram is less than 30%. Recommend ICD. (5) Defibrillator discharge: Not able to extract data from LifeVest in regards to whether it was VT or A-fib with RVR aberrant conduction however patient did get shocked. He has not had any more episodes here. Possible patient was too dry and dehydrated leading to racing of the heart causing him in A-fib RVR and got shocked however cannot rule out VT therefore we will start patient on amiodarone 400 mg twice daily after 1 week it will taper off to 400 once a day. Patient would like to go home. Recommend ICD placement continue LifeVest. Patient will be seeing cardiology nurse practitioner in 1 week. Plan Stop Aldactone Continue metoprolol and Entresto Bumex and reduce metolazone to 2.5 mg heart failure education should be given to the patient Advised in case of gain of 3 pounds or more take extra metolazone the day. Once loose the extra 3 pounds then go back to the usual dose. Attestations 2 Medical Necessity Statement*: Patient can be discharged today. Coding Level of Care Code Acute Code for [facility] Fwd Diagnoses Chronic systolic congestive heart failure I50.22 Heart failure type: systolic Heart failure chronicity: chronic Presence of cardiac pacemaker Z95.0 Essential (primary) hypertension I10 Cardiomyopathy I42.9 Defibrillator discharge Z45.02
--- NOTE | 2024-02-26 11:23 | P.DS_ITS ---
Discharge Providers Date of Admission: 02/25/24 08:09 Date of Discharge: February 26, 2024 Attending Provider at Admission: Anthony Tejeda MD Attending Provider at Discharge: Alma Polanco MD Primary Care Provider: SIERRA Andrew Diagnoses at Discharge Discharge Diagnosis (1) CHF (congestive heart failure): Status: Chronic Qualifiers: Heart failure chronicity: chronic Heart failure type: systolic Qualified Code(s): I50.22 - Chronic systolic (congestive) heart failure (2) Presence of cardiac pacemaker: Status: Chronic (3) Essential (primary) hypertension: Status: Chronic (4) Cardiomyopathy: Status: Acute (5) Defibrillator discharge: Status: Acute Reason for Visit Reason for Visit: defib activating Hospital Course Hospital Course Andrew Sainz is a 83 year old male presenting to the emergency department this morning after his LifeVest shocked him. He has an underlying pacemaker. Upon arrival his rhythm was a paced ventricular rhythm. He denied any active chest pain. Denied any preceding symptoms prior to the shock. No dizziness. Patient is typically on 4 L/min supplemental O2. He has a history of significant cardiomyopathy with last EF of 20%. Patient was seen by the cardiology service. There were no underlying arrhythmias noted while on telemetry monitoring here. Cardiology was able to obtain LifeVest interrogation on 02/26/2024. Per discussion with Dr. Scott, there was no underlying arrhythmia at the time of LifeVest shocking the patient. There was no A-fib RVR or V. tach encountered. Initially he was planned to be discharged on amiodarone, however with this new information available today, patient is being discharged without antiarrhythmics. His medications were adjusted at the time of discharge due to borderline low blood pressure. Spironolactone was discontinued. Metolazone was half to 2.5 mg p.o. daily. He is recommended to continue Entresto. Recommended to continue with the LifeVest. Repeat EF checked during this hospitalization at 30%. Follow-up with cardiology nurse practitioner as outpatient within 1 week of discharge. Physical Exam Narrative: General: No acute distress, AO x3 HEENT: PERRLA, pupils bilaterally equal and reactive, pallors not present Chest: Normal vesicular breath sounds, no added sounds, equal good air entry bilaterally CVS: S1-S2 regular, no murmurs, no tachycardia, no gallops, no rubs Abdomen: Soft, nontender, no organomegaly, bowel sounds present Neuro: No focal deficits, no facial deformity, AO x3, power 5/5 in all limbs Discharge Data Studies Completed and Pending Completed Studies During Hospitalization Category Date Time Status XR chest 1V portable [id number] Stat Exams 02/25/24 04:02 Completed CV. echo limited [id number] Routine Ultrasound 02/25/24 09:13 Completed Radiology Impressions Chest X-Ray 02/25/24 04:02 IMPRESSION: No acute cardiopulmonary findings. Laboratory Results WBC 7.76 10^3/uL (3.29-11.43) 02/26/24 03:57 RBC 3.70 10^6/uL (3.85-5.65) L 02/26/24 03:57 Hgb 10.00 g/dL (11.27-16.99) L 02/26/24 03:57 Hct 33.3 % (37-53) L 02/26/24 03:57 MCV 90.0 fl (82-101) 02/26/24 03:57 MCH 27.0 pg (27-33) 02/26/24 03:57 MCHC 30.0 g/dL (30-55) 02/26/24 03:57 RDW 15.2 % (12.1-15.1) H 02/26/24 03:57 Plt Count 218 10^3/cmm (157-399) 02/26/24 03:57 MPV 8.9 fL (7.4-10.4) 02/26/24 03:57 Neut % (Auto) 77.1 % 02/26/24 03:57 Lymph % (Auto) 11.2 % 02/26/24 03:57 [place] % (Auto) 11.1 % 02/26/24 03:57 Eos % (Auto) 0.0 % 02/26/24 03:57 Baso % (Auto) 0.1 % 02/26/24 03:57 Neut # (Auto) 5.98 10^3/uL (1.8-7.7) 02/26/24 03:57 Lymph # (Auto) 0.9 10^3/uL (0.8-4.8) 02/26/24 03:57 [place] # (Auto) 0.9 10^3/uL (0.2-0.9) 02/26/24 03:57 Eos # (Auto) 0.0 10^3/uL (0.0-0.8) 02/26/24 03:57 Baso # (Auto) 0.0 10^3/uL (0.0-0.1) 02/26/24 03:57 Nucleated RBC % (auto) 0 % 02/26/24 03:57 Nucleated RBCs # 0.0 /100WBC 02/26/24 03:57 Sodium 141 mmol/L (136-145) 02/26/24 03:57 Potassium 4.0 mmol/L (3.5-5.1) 02/26/24 03:57 Chloride 102 mmol/L (98-107) 02/26/24 03:57 Carbon Dioxide 32 mmol/L (22-29) H 02/26/24 03:57 Anion Gap 11.0 (5-19) 02/26/24 03:57 BUN 45 mg/dL (8-23) H 02/26/24 03:57 Creatinine 1.2 mg/dL (0.7-1.2) 02/26/24 03:57 GFR Calculation Not Reportable 02/26/24 03:57 Glucose 122 mg/dL (65-115) H 02/26/24 03:57 POC Glucose 109 mg/dL (70-110) 02/26/24 07:38 Calculated Osmolality 305 mOsm/kg (285-295) H 02/26/24 03:57 Calcium 9.4 mg/dL (8.5-10.5) 02/26/24 03:57 Magnesium 2.0 mg/dL (1.7-2.3) 02/26/24 03:57 Total Bilirubin 0.3 mg/dL (0.15-1.2) 02/26/24 03:57 AST 15 U/L (0-40) 02/26/24 03:57 ALT 17 U/L (0-41) 02/26/24 03:57 Alkaline Phosphatase 68 U/L (40-130) 02/26/24 03:57 Troponin T Baseline 98 ng/L (0-15) H 02/25/24 04:28 Troponin T 120 Minute 92.04 ng/L (0-15) H 02/25/24 06:36 Delta Troponin T -5.96 ABS# (0-10) L 02/25/24 06:36 Troponin T Hi Sens 6Hr 103.8 ng/L (0-15) H 02/25/24 10:44 Troponin T Hi Sens 6Hr Delta 5.8 ng/L (0-12) 02/25/24 10:44 NT-Pro-B Natriuret Pep 1871 pg/mL (0-450) H 02/25/24 04:28 Total Protein 5.9 g/dL (6.6-8.7) L D 02/26/24 03:57 Albumin 2.9 g/dL (3.5-5.2) L 02/26/24 03:57 Globulin 3.0 g/dL (1.3-4.6) 02/26/24 03:57 Vitals Last Vital Signs Temp 97.1 F L 02/26/24 08:30 Pulse 76 02/26/24 10:10 Resp 18 02/26/24 07:51 BP 116/61 02/26/24 10:10 Pulse Ox 99 02/26/24 10:10 O2 Del Method Nasal Cannula 02/26/24 10:05 O2 Flow Rate 2 02/26/24 10:05 Discharge Plan Discharge Patient Disposition: Home Condition: Stable Prescriptions: Continued (DME) Easy Touch Safety Lancets 32 gauge misc See Rx Instructions .Route Qty: 100 2RF Rx Instructions: use 3 times day as needed (DME) pen needle, diabetic [BD Ultra-Fine Domi Pen Needle] 32 gauge x 5/32 needle See Rx Instructions .ROUTE .MEDSUPPLY Qty: 100 5RF Rx Instructions: 3 times day as needed (DME) Easy Touch BluLink Test Strip Strip See Rx Instructions .Route Qty: 50 5RF Rx Instructions: As directed Entresto 24-26 mg tablet 1 tab PO BID Qty: 60 2RF semaglutide 0.25 mg or 0.5 mg (2 mg/3 mL) pen injector 0.25 mg SUBCUT Q7D Qty: 3 2RF Rx Instructions: on wednesday sucralfate [Carafate] 1 gram tablet 1 g PO BID Qty: 60 2RF Flomax 0.4 mg capsule 0.4 mg PO BEDTIME Qty: 30 2RF rosuvastatin 40 mg tablet 40 mg PO DAILY 30 Days Qty: 30 2RF Daliresp 500 mcg tablet 500 mcg PO QAM Qty: 30 2RF omeprazole 40 mg capsule,delayed release(DR/EC) 40 mg PO QAM Qty: 30 2RF montelukast 10 mg tablet 10 mg PO QAM Qty: 90 0RF metoprolol succinate 25 mg tablet extended release 24 hr 25 mg PO QAM Qty: 90 0RF Rx Instructions: note dose decrease if heart less 60 use 1/2 tablet levocetirizine 5 mg tablet 5 mg PO DAILY Qty: 90 0RF ipratropium-albuterol 0.5 mg-3 mg(2.5 mg base)/3 mL solution for nebulization 3 ml inhalation Q4H PRN (Reason: shortness of breath or wheezing) Qty: 300 2RF fluticasone propionate 50 mcg/actuation spray,suspension 2 spray INTRANASAL DAILY Qty: 9.9 2RF finasteride [Proscar] 5 mg tablet 5 mg PO DAILY Qty: 30 2RF ferrous sulfate 324 mg (65 mg iron) tablet,delayed release (DR/EC) 324 mg PO DAILY Qty: 30 2RF bumetanide 1 mg tablet 1 mg PO DAILY Qty: 30 2RF apixaban 2.5 mg tablet 2.5 mg PO BID Qty: 60 2RF Fasenra Pen 30 mg/mL auto-injector 30 mg SUBCUT .8 weeks Qty: 1 6RF Hold Instructions: Resume on 07/19/23. Rx Instructions: maintenance dose magnesium hydroxide [Milk of Magnesia] 400 mg/5 mL suspension 15 ml PO DAILY PRN (Reason: constipation) Qty: 355 2RF (DME) Oxygen concentrator and portable See Rx Instructions .Route .MEDSUPPLY Qty: 1 0RF Rx Instructions: As directed oxygen 4liters 24 hours concentrator and portable (DME) Commode Chair E0163 See Rx Instructions .Route .MEDSUPPLY Qty: 1 0RF Rx Instructions: As directed Breztri Aerosphere 160-9-4.8 mcg/actuation HFA aerosol inhaler 2 inh inhalation BID Qty: 10.7 2RF prednisone 5 mg tablet 5 mg PO DAILY Qty: 30 0RF ascorbic acid (vitamin C) [Vitamin C] 500 mg Tablet 500 mg PO DAILY Probiotic Blend 2 billion cell-50 mg Capsule 1 cap PO BID Rx Instructions: give with meal/snack albuterol sulfate 90 mcg/actuation HFA aerosol inhaler 2 puff INHALATION Q4H PRN (Reason: Shortness Of Breath) aspirin [Elton Low Dose Aspirin] 81 mg Tablet,Delayed Release (Dr/Ec) 81 mg PO DAILY Changed metolazone 5 mg tablet 2.5 mg PO DAILY Qty: 7 0RF Discontinued spironolactone 25 mg tablet 25 mg PO DAILY Qty: 30 2RF Discharge Orders: Discharge Order (Routine); Ordered 02/26/24 Ordered By: Alma Polanco Referrals: Jordy Singer FNP-C [Primary Care Provider] - Marisel Dow FNP [Nurse Practitioner] - 1 week Discharge Diet: Cardiac Discharge Activity: Resume usual activity Patient Instructions: Opioid Safety Activity Restrictions/Additional Instructions: Please call Wednesday to schedule follow-up appointments with Marisel Dow in 1 week. Please call Jordy Singer's office for Primary Care follow-up. Discharge Attestations Time Spent in Discharge Care*: greater than 30 min Status at Discharge: Cognitive status at discharge: cognitively intact , Behavioral status at discharge: cooperative , Quality Metrics Clinical Quality Measures [ No reported AMI, CVA or VTE this stay] Coding Level of Care Code Acute Code for [facility] Fwd Diagnoses Chronic systolic congestive heart failure I50.22 Heart failure chronicity: chronic Heart failure type: systolic Presence of cardiac pacemaker Z95.0 Essential (primary) hypertension I10 Cardiomyopathy I42.9 Defibrillator discharge Z45.02
[2024-02-26 11:34] LABS: Glucose Point of Care 121 mg/dL (70-110)
--- NOTE | 2024-02-26 13:15 | PC.NURSE ---
Discharge - discontinued and changed medications reviewed with the patient. Patient will need to make followup Dr appointments as it is a weekend and we are unable to contact the offices, patient provided with instructions and contact info for offices. IV removed. Patient signature form signed. Patient is currently wearing life vest. Delay discharging patient due to transport arranged through ready transport.
--- NOTE | 2024-02-26 13:20 | PC.NURSE ---
Patient states that his home oxygen requirement is 4L NC. WHIle here he has been titrated off of oxygen. Saturates 99-110% while on room air, even with activity. Nurse asked patient about oxygen requirements on the way home. Patient does not have his portable oxygen with him. Nurse asked if we can get someone to machine operator picker his home oxygen, and if that is not an option have oxygen supplied, but patient declined. Does not want to further delay his discharge as his oxygen saturations are 99% while on room air.
--- NOTE | 2024-02-26 14:01 | PC.NURSE ---
DUe to patient's inability to read or write, he will not be able to read the pill bottles to adjust his home meds per the physician's orders, as he doesn't know the difference between his medications. He has a home health nurse that comes once a week and she arranges his medications in a daily pill organizer and he just takes whatever is in it. He has had metolazone decreased by half, and spironalactone discontinued. Patient asked if he can continue his current medication regimen and then have his home health nurse adjust the medications per discharge instructions when she is there on wednesday. Nurse spoke to Dr izaguirre and Dr izaguirre advised this is okay.
--- NOTE | 2024-02-26 15:13 | PC.NURSE ---
[place] [facility] non emergent transport arrived (medicaid ride), at 1510. NUrse checked patient's [id number] once again before final discharge, continues to be 98/99% on room air. Took out to vehicle via wheel chair, verified patient has all belongings and paperwork.
== END 2024-02-26 15:15 | disposition home or self-care (01) ==
LOC: ER 05:23 → ICU 11:45
PROVIDERS: Emergency Medicine; Admitting Provider Internal Medicine; Emergency Provider Family Medicine; PCP Nurse Practitioner; Visit Provider Student in an Organized Health Care Education/Training Program
DX: Z45.02 Encounter for adjustment and management of automatic implantable cardiac defibrillator (principal); I11.0 Hypertensive heart disease with heart failure; I50.22 Chronic systolic (congestive) heart failure; E11.9 Type 2 diabetes mellitus without complications; K21.9 Gastro-esophageal reflux disease without esophagitis; J44.9 Chronic obstructive pulmonary disease, unspecified; F41.1 Generalized anxiety disorder; E78.5 Hyperlipidemia, unspecified; I42.9 Cardiomyopathy, unspecified; Z99.81 Dependence on supplemental oxygen; Z79.01 Long term (current) use of anticoagulants; Z85.038 Personal history of other malignant neoplasm of large intestine
CPT/HCPCS: 36415; 36416; 71045; 80053; 82962; 83735; 83880; 84484; 85025; 93005; 93308; 94640; 96372; 99285; G0378; J1815; J7512; J7626

== ENCOUNTER → 2024-03-08 14:17 | Outpatient (BNVA) | payer MEDICARE, MEDICAID, SELFPAY | PROVIDERS: PCP Nurse Practitioner; Visit Provider Nurse Practitioner Family | DX: R07.9 Chest pain, unspecified (principal); I50.22 Chronic systolic (congestive) heart failure; Z95.0 Presence of cardiac pacemaker; I42.9 Cardiomyopathy, unspecified; I49.9 Cardiac arrhythmia, unspecified | CPT/HCPCS: 93005 ==

== ENCOUNTER 2024-03-24 15:58 | Inpatient (IN) | payer MEDICARE, MEDICAID, SELFPAY ==
[2024-03-24] VITALS (22 sets, daily range): BP systolic 76–107; BP diastolic 31–78; PULSE 67–127; RESP 18; TEMP 36.7–37; O2SAT 90–100; BMI 21.7; BMI 23.3
--- NOTE | 2024-03-24 16:07 | ECG_ITS ---
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 [email or web address]
--- NOTE | 2024-03-24 16:24 | XRR_ITS ---
PROCEDURE INFORMATION: Exam: XR Chest Exam date and time: 03/24/2024 4:30 PM Age: 83 years old Clinical indication: Shortness of breath TECHNIQUE: Imaging protocol: Radiologic exam of the chest. Views: 1 view. COMPARISON: CR (CHEST, ) 02/25/2024 4:41 AM FINDINGS: Tubes, catheters and devices: Cardiac pacemaker on the left with leads in satisfactory position. Lungs: Unremarkable. No consolidation or mass. Pleural spaces: Unremarkable. No pleural effusion. No pneumothorax. Heart/Mediastinum: Mild cardiomegaly is noted. Bones/joints: Unremarkable. XR/XR chest 1V portable [id number] IMPRESSION: No acute findings.
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
[2024-03-24 16:54] LABS: Hematocrit 35.8 % (37-53); Lymphocytes # 0.4 10^3/uL (0.8-4.8); Lymphocytes % 3.9 %; Mean Corpuscular HGB Conc 32.1 g/dL (30-55); Mean Corpuscular Hemoglobin 26.9 pg (27-33); Mean Corpuscular Volume 83.6 fl (82-101); Mean Platelet Volume 9.2 fL (7.4-10.4); Monocytes # 0.4 10^3/uL (0.2-0.9); Monocytes % 4.2 %; Neutrophils # 8.35 10^3/uL (1.8-7.7); Neutrophils % 91.6 %; Nucleated Red Blood Cells % 0 %; Platelet Count 232 10^3/cmm (157-399); Red Blood Count 4.28 10^6/uL (3.85-5.65); Red Cell Distribution Width 15.7 % (12.1-15.1); White Blood Count 9.12 10^3/uL (3.29-11.43)
[2024-03-24 17:08] LABS: Blood Gas Allen Test Pos; Blood Gas Operator Identificat glc; Blood Gas Sample Site Radial, right; Blood Gas Sample Type Arterial; Oxygen Device NC; Potassium Level - ABG 2.1 mmol/L (3.5-5.0)
[2024-03-24 17:10] LABS: ABG PCO2 31.6 mmHg (35-45); Alveolar-Arterial Oxygen Gradi 12.4 mmHg (5-10); Arterial Blood Gas Hematocrit 33.7 % (42-52); Base Excess ABG 10.3 mmol/L (-2.0-2.0); Carboxyhemoglobin 0.4 %THgb (0.4-20.1); HGB O2 Sat 97.2 % (95-100); Methemoglobin 1.5 % (0.4-1.5); Oxygen Saturation ABG 99.1; PO2 FiO2 Ratio Arterial Blood 369
[2024-03-24 17:32] LABS: Covid PCR NEGATIVE (Negative); Influenza A NEGATIVE (Negative); Influenza B NEGATIVE (Negative); Respiratory Syncytial Virus Ce NEGATIVE (Negative)
[2024-03-24 17:34] LABS: Lactic Sepsis W/Reflex 3.6 mmol/L (0.5-2.2)
[2024-03-24 17:39] LABS: Troponin(5th) Baseline 171 ng/L (0-15)
[2024-03-24 17:43] LABS: Alanine Aminotransferase 15 U/L (0-41); Albumin Level 3.4 g/dL (3.5-5.2); Alkaline Phosphatase 88 U/L (40-130); Anion Gap 18.2 (5-19); Aspartate Amino Transferase 21 U/L (0-40); Blood Urea Nitrogen 41 mg/dL (8-23); C Reactive Protein 7.1 mg/L (0.0-4.9); Calcium 8.7 mg/dL (8.5-10.5); Carbon Dioxide 32 mmol/L (22-29); Chloride 93 mmol/L (98-107); Globulin 2.7 g/dL (1.3-4.6); Glucose 163 mg/dL (65-115); NT Pro B Type Natriuretic Pept 4212 pg/mL (0-450); Osmolality Calculated 306 mOsm/kg (285-295); Sodium 141 mmol/L (136-145); Total Protein 6.1 g/dL (6.6-8.7)
[2024-03-24 17:45] LABS: Potassium 2.2 mmol/L (3.5-5.1)
[2024-03-24 17:52] LABS: ABG PH Result 7.61 (7.35-7.45)
[2024-03-24] MEDS: potassium chloride oral liq 20 mEq/15 mL UDC 40 MEQ PO (18:02)
[2024-03-24] MEDS: magnesium sulfate premix 2 GM/50 ML PIGGYBACK IV (18:02)
[2024-03-24] MEDS: potassium chloride premix 100 ML 25 MEQ IV (18:05)
--- NOTE | 2024-03-24 18:24 | ECG_ITS ---
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 Measurements Intervals [place] Rate: 107 P: 0 AL: 0 QRS: 103 QRSD: 188 T: -79 QT: 396 QTc: 531 Interpretive Statements ATRIAL FIBRILLATION WITH RAPID VENTRICULAR RESPONSE WITH ABERRANT CONDUCTION OR VENTRICULAR PREMATURE COMPLEXES. Demand V pacing INTRAVENTRICULAR CONDUCTION DELAY [130+ ms QRS DURATION] POSSIBLE RIGHT VENTRICULAR HYPERTROPHY [SOME/ALL OF: PROMINENT R IN V1, LATE TRANSITION, RAD, AKIL, SSS] MARKED ST ELEVATION, CONSIDER ANTEROSEPTAL INJURY [MARKED ST ELEVATION W/O NORMALLY INFLECTED T-WAVE IN V1-V4] ACUTE LA Compared to ECG 03/24/2024 16:07:13 ST (T wave) deviation now present Myocardial infarct finding now present Electronically Signed On 03-24-2024 21:48:40 TALENT ACQUISITION RELATIONSHIP MANAGER by Alli Quinn M.D. [id number]
[2024-03-24 18:27] LABS: Reflex Lactate Order REFLEX LACTIC ORDERD
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
[2024-03-24 18:57] LABS: INR 1.23 (0.8-1.2)
[2024-03-24 19:02] LABS: C Reactive Protein 7.2 mg/L (0.0-4.9)
[2024-03-24] MEDS: cefepime 2,000 mg SDV 2000 MG IVP (19:09)
[2024-03-24] MEDS: linezolid premix 600 MG/300 ML PREMIX 300 MG IV (19:09)
[2024-03-24 19:37] LABS: Troponin 5 2HR Delta -10.3 ABS# (0-10)
[2024-03-24 19:56] LABS: Troponin 5 2HR 160.7 ng/L (0-15)
[2024-03-24] MEDS: pantoprazole 40 mg SDV IVP (20:12)
[2024-03-24] MEDS: methylPREDNISolone sod succ 125 mg/2 mL INJ IVP (20:12)
[2024-03-24] MEDS: tamsulosin 0.4 mg Capsule PO (20:12)
[2024-03-24] MEDS: enoxaparin 100 mg/mL Syringe 70 MG SUBCUT (20:12)
--- NOTE | 2024-03-24 20:15 | PHA.VACGOAL ---
Vancomycin Goal - Goal Vancomycin Goal:: 15-20 mg/L Vancomycin Indication:: Pneumonia - Therapy Current therapy:: Cefepime Day of therpy:: Day []of [] . Actual body weight (kg): 167 lb 8.821 oz - Data Labs: WBC 9.12 10^3/uL (3.29-11.43) 03/24/24 16:39 RBC 4.28 10^6/uL (3.85-5.65) 03/24/24 16:39 Hgb 11.50 g/dL (11.27-16.99) 03/24/24 16:39 Hct 35.8 % (37-53) L 03/24/24 16:39 MCV 83.6 fl (82-101) 03/24/24 16:39 MCH 26.9 pg (27-33) L 03/24/24 16:39 MCHC 32.1 g/dL (30-55) 03/24/24 16:39 RDW 15.7 % (12.1-15.1) H 03/24/24 16:39 Sodium 141 mmol/L (136-145) 03/24/24 16:39 Potassium 2.2 mmol/L (3.5-5.1) L* 03/24/24 16:39 Chloride 93 mmol/L (98-107) L 03/24/24 16:39 Carbon Dioxide 32 mmol/L (22-29) H 03/24/24 16:39 Anion Gap 18.2 (5-19) 03/24/24 16:39 BUN 41 mg/dL (8-23) H 03/24/24 16:39 Creatinine 2.0 mg/dL (0.7-1.2) H 03/24/24 16:39 GFR Calculation Not Reportable 03/24/24 16:39 Last dialysis session:: N/A Treatment plan:: new consult Regimen:: LOADING DOSE 2g PER DOSING PROTOCOL MAINTENANCE DOSE 1000mg Q24H Follow up:: WILL CONTINUE TO MONITOR AND FOLLOW UP DAILY
[2024-03-24] MEDS: vancomycin 2,000 MG/400 ML PIGGYBACK 200 MG IV (20:18)
[2024-03-24] MEDS: norepinephrine 4 MG/250 ML BAG 7.5 MG IV (20:36)
[2024-03-24 20:48] LABS: Thyroid Stimulating Hormone 1.85 uIU/mL (0.27-4.20)
[2024-03-24 20:51] LABS: Bilirubin Urine Negative (Negative); Blood Urine 3+ (Negative); Glucose Urine UA Negative (Normal); Ketones Urine Negative (Negative); Leukocyte Esterase Urine 2+ (Negative); Nitrate Urine Negative (Negative); Protein Urine 2+ (Negative); Specific Gravity, Urine 1.015 (1.005-1.030); Urine Appearance Turbid (CLEAR); Urine Color Yellow (Yellow); Urobilinogen Urine 0.2 mg/dL (Negative)
[2024-03-24 20:57] LABS: Add Urine Microscopic? YES; Bacteria Urine 1+ /hpf; Hyaline Casts Urine 69.91 /lpf; Universal Test for UA Present (0); WBC Urine >100 /hpf (0-5)
[2024-03-24 21:14] LABS: Add Urine Culture? Yes
[2024-03-24 23:20] LABS: Lactic Acid level (Lactate) 2.6 mmol/L (0.5-2.2)
[2024-03-24 23:24] LABS: Troponin 5 6HR Delta -31.7 ng/L (0-12)
[2024-03-24 23:25] LABS: Troponin 5 6HR 139.3 ng/L (0-15)
[2024-03-25] VITALS (67 sets, daily range): BP systolic 81–125; BP diastolic 41–86; PULSE 63–163; RESP 15–26; TEMP 36.6–37; O2SAT 80–100; BMI 23.3
[2024-03-25 05:15] LABS: Hematocrit 33.3 % (37-53); Lymphocytes # 0.4 10^3/uL (0.8-4.8); Lymphocytes % 5.2 %; Mean Corpuscular HGB Conc 32.4 g/dL (30-55); Mean Corpuscular Hemoglobin 27.4 pg (27-33); Mean Corpuscular Volume 84.5 fl (82-101); Mean Platelet Volume 9.1 fL (7.4-10.4); Monocytes # 0.2 10^3/uL (0.2-0.9); Monocytes % 2.9 %; Neutrophils # 7.24 10^3/uL (1.8-7.7); Neutrophils % 91.6 %; Nucleated Red Blood Cells % 0 %; Platelet Count 249 10^3/cmm (157-399); Red Blood Count 3.94 10^6/uL (3.85-5.65); Red Cell Distribution Width 15.6 % (12.1-15.1)
[2024-03-25 05:43] LABS: Alanine Aminotransferase 12 U/L (0-41); Albumin Level 2.9 g/dL (3.5-5.2); Alkaline Phosphatase 74 U/L (40-130); Anion Gap 17.7 (5-19); Aspartate Amino Transferase 17 U/L (0-40); Blood Urea Nitrogen 41 mg/dL (8-23); Calcium 8.3 mg/dL (8.5-10.5); Carbon Dioxide 28 mmol/L (22-29); Chloride 95 mmol/L (98-107); Creatinine Clr Calc Pharmacy 30.4419; Globulin 2.7 g/dL (1.3-4.6); Glucose 207 mg/dL (65-115); Magnesium 2.4 mg/dL (1.7-2.3); Osmolality Calculated 302 mOsm/kg (285-295); Phosphorus 2.9 mg/dL (2.5-4.5); Sodium 138 mmol/L (136-145); Total Bilirubin 0.8 mg/dL (0.15-1.2); Total Protein 5.6 g/dL (6.6-8.7)
[2024-03-25] MEDS: roflumilast 500 mcg Tablet PO (05:43)
[2024-03-25] MEDS: cefepime 2,000 mg SDV 2000 MG IVP (05:43)
[2024-03-25 05:57] LABS: NT Pro B Type Natriuretic Pept 5049 pg/mL (0-450)
[2024-03-25 06:01] LABS: Potassium 2.7 mmol/L (3.5-5.1)
[2024-03-25] MEDS: norepinephrine 4 MG/250 ML BAG 22.5 MG IV ×2 (07:52→17:25)
[2024-03-25] MEDS: budesonide 0.5 mg/2 mL Neb INHALATION ×2 (08:32→20:11)
[2024-03-25] MEDS: ipratropium-albuterol 3 mL Neb INHALATION ×4 (08:32→20:11)
--- NOTE | 2024-03-25 08:43 | USR_ITS ---
PROCEDURE INFORMATION: Exam: US Retroperitoneal, Complete, Kidneys and Bladder Exam date and time: 03/25/2024 9:56 AM Age: 83 years old Clinical indication: Condition or disease; Other: Jerry TECHNIQUE: Imaging protocol: Real-time ultrasound of the retroperitoneum with image documentation. Complete exam focused on the bilateral kidneys and urinary bladder. COMPARISON: CT abdomen pelvis w con* [id number] 09/23/2023 1:20 PM FINDINGS: Tubes, catheters and devices: Decompressed bladder with a catheter. Right kidney: The right kidney measures 11.6 x 4.5 x 5.5 cm. No mass, definite calculus, or hydronephrosis. Left kidney: The left kidney measures 9.1 x 4.1 x 5.8 cm. A 1.9 cm cortical simple cyst is seen. No solid mass, definite calculus, or hydronephrosis. Urinary bladder: Unremarkable. US/US renal BI* [id number] IMPRESSION: No acute findings.
[2024-03-25] MEDS: aspirin 81 mg EC Tablet PO (08:45)
[2024-03-25] MEDS: sucralfate 1 gm Tablet PO ×2 (08:46→17:26)
[2024-03-25] MEDS: methylPREDNISolone sod succ 40 mg/mL INJ IVP ×2 (08:46→16:02)
[2024-03-25] MEDS: predniSONE 5 mg Tablet PO (08:46)
[2024-03-25] MEDS: finasteride 5 mg Tablet PO (08:46)
[2024-03-25] MEDS: potassium chloride ER 20 mEq Tablet 40 MEQ PO ×2 (09:04→13:00)
[2024-03-25] MEDS: lidocaine 1% 5 ML in potassium chloride premix 100 ML 52.5 ML IV ×2 (09:04→13:05)
[2024-03-25 12:34] LABS: Anion Gap 16.6 (5-19); Blood Urea Nitrogen 40 mg/dL (8-23); Calcium 8.4 mg/dL (8.5-10.5); Carbon Dioxide 29 mmol/L (22-29); Chloride 95 mmol/L (98-107); Creatinine Clr Calc Pharmacy 33.8303; Glucose 220 mg/dL (65-115); Osmolality Calculated 303 mOsm/kg (285-295); Sodium 138 mmol/L (136-145)
[2024-03-25 12:37] LABS: Potassium 2.6 mmol/L (3.5-5.1)
--- NOTE | 2024-03-25 15:35 | P.PN_ITS ---
Subjective 2 Subjective: Patient was seen this morning, he is alert oriented x 3, following all commands, currently on 4 of Levophed, denies any chest pain, no palpitations, does complain of shortness of breath and wheezing, does have a cough, no nausea, no vomiting, no abdominal pain Vitals/I&O/Wt Last Vital Signs Temp 98.6 F 03/25/24 09:00 Pulse 63 03/25/24 12:00 Resp 18 03/25/24 11:40 BP 100/53 03/25/24 12:00 Pulse Ox 86 L 03/25/24 12:00 O2 Del Method Nasal Cannula 03/25/24 12:00 O2 Flow Rate 4 03/25/24 11:40 03/25/24 03/25/24 03/25/24 06:59 14:59 22:59 Intake Total 286 / 1141.125 608.125 / 608.125 105 / 713.125 Output Total 400 / 1050 550 / 550 Balance -114 / 91.125 58.125 / 58.125 105 / 163.125 Weight last 48 hrs Weight 76.033 kg Weight 76 kg Weight 72.575 kg Physical Exam 2 Const: COMMON NORMALS: no acute distress and patient oriented x3 Resp: COMMON NORMALS: normal respiratory effort, No retractions and No use of accessory muscles AUSCULTATION: wheezes Cardio: COMMON NORMALS: regular rate, regular rhythm, S1 normal heart sound present and S2 normal heart sound present RATE: regular rate RHYTHM: r egular rhythm HEART SOUNDS: S1 normal heart sound present and S2 normal heart sound present GI: COMMON NORMALS: Normal to inspection, nondistended, normoactive bowel sounds present and non-tender Extremity: COMMON NORMALS: no pedal edema Neuro: COMMON NORMALS: patient oriented x3 Psych: COMMON NORMALS: mental status grossly normal Urinary Catheter Management: Mesa Latex: Cath Placed During This Visit: yes Reason for Continuing Indwelling Catheter: Acute Urinary Retention or Obstruction Urinary Catheter Date of Insertion: 03/24/24 Urinary Catheter Time of Insertion: 18:00 Sepsis: Is patient septic: Yes Focused sepsis exam performed: Yes F ocused sepsis exam: DP PT pulses palpable, cap refill greater than 2 seconds, no mottling Date exam was performed: 03/25/24 Time exam was performed: 09:00 Data 03/25/24 04:43 03/25/24 11:50 Micro: Microbiology 03/24/24 19:01 Blood Culture - Preliminary Blood SPECIMEN COLLECTED 03/24/24 18:59 Blood Culture - Preliminary Blood SPECIMEN COLLECTED A&P Assessment and plan (1) Chest pain: (2) Non-ischemic cardiomyopathy: (3) Diabetes: Qualifiers: Diabetes mellitus type: type 2 Diabetes mellitus dedicated intermodal truck driver insulin use: with dedicated intermodal truck driver use Diabetes mellitus complication status: with kidney complications Diabetes mellitus complication detail: with chronic kidney disease Chronic kidney disease stage: stage 2 (mild) Qualified Code(s): E11.22 - Type 2 diabetes mellitus with diabetic chronic kidney disease; N18.2 - Chronic kidney disease, stage 2 (mild); Z79.4 - snf (current) use of insulin (4) Lactic acidosis: (5) Hypokalemia: (6) COPD with acute exacerbation: (7) NSTEMI (non-ST elevated myocardial infarction): (8) Acute hypoxic respiratory failure: (9) Pneumonia: (10) Acute renal failure: Plan Acute hypoxic respiratory failure -Multifactorial -Concerns for pneumonia -COPD exacerbation -CHF exacerbation Plan -Continue broad-spectrum antibiotic therapy -Vancomycin -Broaden antibiotic coverage to Zosyn -Solu-Medrol 40 mg IV every 8 hours -DuoNeb -Budesonide -Will hold off on Lasix -Follow blood cultures -Follow respiratory viral panel within normal limits -Full code -Lovenox for DVT prophylaxis Shock -Multifactorial -Component of sepsis -Component of cardiogenic -Monitor in ICU -Maintain MAP in 65, will require Levophed, currently at 4 ? Order placed for PICC line Sepsis -Sepsis features met given acute hypoxic respiratory failure, tachypnea, tachycardia, elevated lactic acid Acute renal failure -Multifactorial -Component of sepsis -Possible cardiorenal syndrome -Monitor urine output, monitor creatinine -Place Mesa catheter Hypokalemia, receiving IV and p.o. replacement emergency room Concerns for urinary tract infection -UA shows evidence of UTI -Renal ultrasound ordered -Antibiotics as above NSTEMI -No active chest pain but has been complaining of chest pain -Serial EKGs, start troponins, telemetry monitoring -Aspirin, statin -Therapeutic Lovenox -Cardiac echo Attestations 2 Medical Necessity Statement*: Patient requires hospitalization for acute renal failure, shock, sepsis, pneumonia, UTI, NSTEMI, on Levophed Diagnoses Chest pain R07.9 Non-ischemic cardiomyopathy I42.8 Type 2 diabetes mellitus with stage 2 chronic kidney disease, with long-term current use of insulin E11.22; N18.2; Z79.4 Diabetes mellitus type: type 2 Diabetes mellitus senior care insulin use: with senior care use Diabetes mellitus complication status: with kidney complications Diabetes mellitus complication detail: with chronic kidney disease Chronic kidney disease stage: stage 2 (mild) Lactic acidosis E87.20 Hypokalemia E87.6 COPD with acute exacerbation J44.1 NSTEMI (non-ST elevated myocardial infarction) I21.4 Acute hypoxic respiratory failure J96.01 Pneumonia J18.9 Acute renal failure N17.9
[2024-03-25] MEDS: potassium chloride ER 20 mEq Tablet PO (16:01)
[2024-03-25] MEDS: piperacillin-tazobactam 3.375 GM in sodium chloride 0.9% (plus) 50 ML IV (16:02)
--- NOTE | 2024-03-25 16:15 | XRR_ITS ---
PROCEDURE INFORMATION: Exam: XR Chest Exam date and time: 03/25/2024 4:54 PM Age: 83 years old Clinical indication: Device placement; Picc; Additional info: Post picc insertion, hannah placing in icu 11. Should be ready at 1700 TECHNIQUE: Imaging protocol: Radiologic exam of the chest. Views: 1 view. COMPARISON: CR (CHEST, ) 03/24/2024 4:30 PM FINDINGS: Tubes, catheters and devices: Right-sided PICC tip is in the superior vena cava. Stable intact pacemaker hardware. Lungs: Unremarkable. No consolidation. Pleural spaces: Unremarkable. No pleural effusion. No pneumothorax. Heart/Mediastinum: Unremarkable. No cardiomegaly. Bones/joints: Unremarkable. XR/XR chest 1V portable [id number] IMPRESSION: 1. Right-sided PICC tip is in the superior vena cava. 2. No acute findings.
--- NOTE | 2024-03-25 17:18 | PICC.NOTE ---
Triple lumen PICC placed to right basilic vein. Referred to vascular access nurse for PICC placement due to use of IV vasopressors. Risks and benefits discussed and informed consent obtained from pt. Right arm assessed with right basilic vein measuring 5.0 mm, straight, and apparent best choice for placement. Using sterile technique and MST, right basilic vein accessed x 1 stick. Mid-arm circumference measured 10 cm from right AC 25 cm. Trimmed cath 46 cm with 0 cm external length noted. CXR shows tip to appear to be in the distal SVC. Awaiting radiologist to read. Line secured with stat-lock. Insertion site covered with Secureport IV and TSM. Report given to bedside nurse, GISELA Parra_.
--- NOTE | 2024-03-25 18:24 | USCV_ITS ---
Alistair Andrew Age: 83 Gender: M : 1940 Exam Date: 03/25/2024 14:33 Ordering Phys: Sundeep Resendez MD Technologist: Erasto Sosa Exam Location: [facility] – [place] Indication: sob BP: 100 / 53 HR: 65 Rhythm: Sinus Technical Quality: Adequate MEASUREMENTS (Male / Female) Normal Values 2D ECHO LV Diastolic Diameter PLAX 5.4 cm 4.2 - 5.9 / 3.9 - 5.3 cm IVS Diastolic Thickness 1.5 cm 0.6 - 1.0 / 0.6 - 0.9 cm IVS Systolic Thickness 1.5 cm LVPW Diastolic Thickness 2.1 cm 0.6 - 1.0 / 0.6 - 0.9 cm LVPW Systolic Thickness 2.1 cm LVOT Diameter 2.1 cm LV Ejection Fraction 2D Teich 42.3 % LV Ejection Fraction MOD 4C 29.0 % LV Ejection Fraction MOD 2C 41.7 % LV Ejection Fraction 2C AL 42.1 % LA Diameter 4.1 cm RA Systolic Volume 4C AL 36.7 ml RA Systolic Volume 4C MOD 37.2 ml LA Sys Volume AL 59.2 cm cubed LA Sys Volume Index AL 30.4 cm cubed/m squared Aorta at Sinotubular Diameter 3.0 cm IVC Diameter 1.8 cm M-MODE LA Ao Ratio MM 1.4 AV Cusp Separation MM 2.4 cm DOPPLER AV Peak Velocity 134.0 cm/s LVOT Peak Velocity 90.0 cm/s AV Area Cont Eq vti 2.5 cm squared AV Area Cont Eq pk 2.4 cm squared MV Peak Velocity 339.7 cm/s MV Area PHT 9.6 cm squared Mitral E to A Ratio 0.8 TV Peak Velocity 272.0 cm/s TR Peak Velocity 285.0 cm/s TR Peak Gradient 32.5 mmHg TR Mean Velocity 218.0 cm/s TR Mean Gradient 19.6 mmHg TR Velocity Time Integral 81.6 cm PV Peak Velocity 106.7 cm/s RV Ejection Time 0.3 s FINDINGS Left Ventricle Diffuse hypokinesis of the left ventricule with an ejection fraction of 42%. Mildly dilated LV cavity. Right Ventricle Catheter/pacemaker wire in the right ventricular cavity. Right Atrium Catheter/pacemaker wire in the right atrial appendage. Left Atrium Mildly increased left atrial size. Mitral Valve Thickened mitral valve. Mild-moderate mitral valve regurgitation. Aortic Valve Minimally thickened aortic valve.trace aortic valve regurgitation. Tricuspid Valve No gross morphologic abnormalities noted Pulmonic Valve Mild pulmonary valve regurgitation. Pericardium No pericardial effusion. Aorta Aortic root appears to be mildly dilated measuring 4.1 cm at the level of the sinuses. IVC Dilated IVC with normal respiratory variation. CONCLUSIONS Diffuse hypokinesis of the left ventricule with an ejection fraction of 42%. Mildly dilated LV cavity. Mildly increased left atrial size. Thickened mitral valve. Mild-moderate mitral valve regurgitation. Estimated pulmonary artery peak systolic pressur is e 23 mmHg. Trace tricuspid valve regurgitation. Minimally thickened aortic valve.trace aortic valve regurgitation. 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 Estimated pulmonary artery peak systolic pressur is e 23 mmHg. Trace tricuspid valve regurgitation. There is no pericardial effusion. There are no intracardiac masses. Compared to the study from 02/25/2024, LV ejection fraction appears to have improved from 30% to 40% Dr Alli Quinn MD [facility] (Electronically Signed) Final Date: 25 March 2024 18:12 S
[2024-03-25 18:58] LABS: Anion Gap 15.6 (5-19); Blood Urea Nitrogen 40 mg/dL (8-23); Calcium 8.4 mg/dL (8.5-10.5); Carbon Dioxide 28 mmol/L (22-29); Chloride 102 mmol/L (98-107); Creatinine Clr Calc Pharmacy 32.0497; Glucose 215 mg/dL (65-115); Osmolality Calculated 310 mOsm/kg (285-295); Potassium 3.6 mmol/L (3.5-5.1); Sodium 142 mmol/L (136-145)
[2024-03-25] MEDS: enoxaparin 100 mg/mL Syringe 70 MG SUBCUT (20:07)
[2024-03-25] MEDS: VANCOMYCIN ADD-Vantage 1,000 MG in 0.9% NaCl ADD-Vantage 250 ML 250 MG IV (20:08)
[2024-03-25] MEDS: pantoprazole 40 mg SDV IVP (20:08)
[2024-03-25] MEDS: atorvastatin 40 mg Tablet PO (20:08)
[2024-03-25] MEDS: tamsulosin 0.4 mg Capsule PO (20:08)
[2024-03-26] VITALS (97 sets, daily range): BP systolic 73–127; BP diastolic 45–75; PULSE 61–89; RESP 6–26; TEMP 36.4; O2SAT 82–100
[2024-03-26] MEDS: methylPREDNISolone sod succ 40 mg/mL INJ IVP ×4 (00:59→23:20)
[2024-03-26] MEDS: piperacillin-tazobactam 3.375 GM in sodium chloride 0.9% (plus) 50 ML IV ×4 (00:59→23:24)
[2024-03-26] MEDS: norepinephrine 4 MG/250 ML BAG 22.5 MG IV ×3 (02:57→23:22)
[2024-03-26] MEDS: roflumilast 500 mcg Tablet PO (05:29)
[2024-03-26 05:36] LABS: Basophils % 0.1 %; Hematocrit 33.2 % (37-53); Lymphocytes # 0.5 10^3/uL (0.8-4.8); Lymphocytes % 2.7 %; Mean Corpuscular Hemoglobin 26.9 pg (27-33); Mean Corpuscular Volume 86.7 fl (82-101); Mean Platelet Volume 9.3 fL (7.4-10.4); Monocytes # 0.8 10^3/uL (0.2-0.9); Monocytes % 4.4 %; Neutrophils # 17.11 10^3/uL (1.8-7.7); Neutrophils % 92.2 %; Nucleated Red Blood Cells % 0 %; Platelet Count 269 10^3/cmm (157-399); Red Blood Count 3.83 10^6/uL (3.85-5.65); Red Cell Distribution Width 15.5 % (12.1-15.1); White Blood Count 18.56 10^3/uL (3.29-11.43)
[2024-03-26 05:58] LABS: Alanine Aminotransferase 13 U/L (0-41); Albumin Level 2.7 g/dL (3.5-5.2); Alkaline Phosphatase 78 U/L (40-130); Aspartate Amino Transferase 19 U/L (0-40); Blood Urea Nitrogen 44 mg/dL (8-23); Calcium 8.3 mg/dL (8.5-10.5); Carbon Dioxide 28 mmol/L (22-29); Chloride 98 mmol/L (98-107); Creatinine Clr Calc Pharmacy 28.9974; Globulin 2.7 g/dL (1.3-4.6); Glucose 220 mg/dL (65-115); Magnesium 2.5 mg/dL (1.7-2.3); Osmolality Calculated 316 mOsm/kg (285-295); Phosphorus 2.3 mg/dL (2.5-4.5); Sodium 144 mmol/L (136-145); Total Bilirubin 0.3 mg/dL (0.15-1.2); Total Protein 5.4 g/dL (6.6-8.7)
[2024-03-26 05:59] LABS: C Reactive Protein 3.6 mg/L (0.0-4.9)
[2024-03-26 06:01] LABS: Anion Gap 21.9 (5-19); Potassium 3.9 mmol/L (3.5-5.1)
[2024-03-26 06:47] LABS: NT Pro B Type Natriuretic Pept 14142 pg/mL (0-450); Procalcitonin 0.27 ng/mL (0-0.5)
[2024-03-26] MEDS: budesonide 0.5 mg/2 mL Neb INHALATION ×2 (08:00→20:09)
[2024-03-26] MEDS: ipratropium-albuterol 3 mL Neb INHALATION ×4 (08:00→20:09)
[2024-03-26] MEDS: sucralfate 1 gm Tablet PO ×2 (08:02→17:32)
[2024-03-26] MEDS: predniSONE 5 mg Tablet PO (08:02)
[2024-03-26] MEDS: aspirin 81 mg EC Tablet PO (08:02)
[2024-03-26] MEDS: finasteride 5 mg Tablet PO (08:02)
[2024-03-26] MEDS: potassium chloride ER 20 mEq Tablet 40 MEQ PO (08:55)
[2024-03-26] MEDS: metOLazone 5 MG Tablet PO (08:56)
[2024-03-26] MEDS: FUROsemide 10 mg/mL SDV 4mL 40 MG IVP (08:56)
--- NOTE | 2024-03-26 13:10 | PC.NURSE ---
Patient is not agreeable to getting up to a recliner at this time. Patient education provided on benefits of getting out of bed. Will continue to encourage patient.
--- NOTE | 2024-03-26 16:00 | PM.PN ---
Subjective Subjective: - Patient was seen this morning, he is sitting up in bed, denies any fevers, no chills, cough does report shortness of breath, no abdominal pain, he remains on Levophed at 6, we discussed potassium replacement, will try diuresis today, due to shortness of breath, denies chest pain Vitals/I&O/Wt Last Vital Signs Temp 97.6 F 03/26/24 12:36 Pulse 70 03/26/24 14:38 Resp 16 03/26/24 12:15 BP 106/48 03/26/24 12:15 Pulse Ox 90 03/26/24 12:15 O2 Del Method Nasal Cannula 03/26/24 12:15 O2 Flow Rate 4 03/26/24 12:15 03/26/24 03/26/24 03/26/24 06:59 14:59 22:59 Intake Total 264.5 / 4875.511 1248.375 / 1233.375 Output Total 800 / 1350 1600 / 1600 Balance -535.5 / 172.500 -366.625 / -366.625 Weight last 48 hrs Weight 78.2 kg Weight 76.033 kg Weight 76 kg Weight 72.575 kg Physical Exam Const: COMMON NORMALS: no acute distress and patient oriented x3 Resp: COMMON NORMALS: normal respiratory effort, No retractions and No use of accessory muscles AUSCULTATION: crackles and rales Cardio: COMMON NORMALS: regular rate, regular rhythm, S1 normal heart sound present and S2 normal heart sound present RATE: regular rate RHYTHM: regular rhythm HEART SOUNDS: S1 normal heart sound present and S2 normal heart sound present GI: COMMON NORMALS: Normal to inspection, nondistended, normoactive bowel sounds present and non-tender Extremity: COMMON NORMALS: no pedal edema Neuro: COMMON NORMALS: patient oriented x3 and CN's II-XII intact bilaterally Psych: COMMON NORMALS: mental status grossly normal Urinary Catheter Management: Mesa Latex: Cath Placed During This Visit: yes Reason for Continuing Indwelling Catheter: Accurate Measurement of Urinary Output in Critically Ill Patients Urinary Catheter Date of Insertion: 03/24/24 Urinary Catheter Time of Insertion: 18:00 Data 03/26/24 04:50 03/26/24 04:50 Micro: Microbiology 03/24/24 20:40 Urine Culture - Final Urine,Clean Catch 03/24/24 19:01 Blood Culture - Preliminary Blood NEGATIVE TO DATE 03/24/24 18:59 Blood Culture - Preliminary Blood NEGATIVE TO DATE A&P Assessment and plan (1) Chest pain: (2) Non-ischemic cardiomyopathy: (3) Diabetes: Qualifiers: Diabetes mellitus type: type 2 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: with local company intermodal truck driver use Diabetes mellitus complication status: with kidney complications Diabetes mellitus complication detail: with chronic kidney disease Chronic kidney disease stage: stage 2 (mild) Qualified Code(s): E11.22 - Type 2 diabetes mellitus with diabetic chronic kidney disease; N18.2 - Chronic kidney disease, stage 2 (mild); Z79.4 - senior care (current) use of insulin (4) Lactic acidosis: (5) Hypokalemia: (6) COPD with acute exacerbation: (7) NSTEMI (non-ST elevated myocardial infarction): (8) Acute hypoxic respiratory failure: (9) Pneumonia: (10) Acute renal failure: Plan Acute hypoxic respiratory failure -Multifactorial -Concerns for pneumonia -COPD exacerbation -CHF exacerbation Plan -Continue broad-spectrum antibiotic therapy -Vancomycin -Broaden antibiotic coverage to Zosyn -Solu-Medrol 40 mg IV every 8 hours -DuoNeb -Budesonide -Start Lasix today 40 mg IV -Follow blood cultures -Follow respiratory viral panel within normal limits -Full code -Lovenox for DVT prophylaxis Shock -Multifactorial -Component of sepsis -Component of cardiogenic -Monitor in ICU -Maintain MAP in 65, will require Levophed, currently at 6 ? Order placed for PICC line Cardiac echo CONCLUSIONS Diffuse hypokinesis of the left ventricule with an ejection fraction of 42%. Mildly dilated LV cavity. Mildly increased left atrial size. Thickened mitral valve. Mild-moderate mitral valve regurgitation. Estimated pulmonary artery peak systolic pressur is e 23 mmHg. Trace tricuspid valve regurgitation. Minimally thickened aortic valve.trace aortic valve regurgitation. 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 Estimated pulmonary artery peak systolic pressur is e 23 mmHg. Trace tricuspid valve regurgitation. There is no pericardial effusion. There are no intracardiac masses. Compared to the study from 02/25/2024, LV ejection fraction appears to have improved from 30% to 40% Sepsis -Sepsis features met given acute hypoxic respiratory failure, tachypnea, tachycardia, elevated lactic acid Acute renal failure -Multifactorial -Component of sepsis -Possible cardiorenal syndrome -Monitor urine output, monitor creatinine -Place Mesa catheter Hypokalemia, receiving IV and p.o. replacement emergency room Concerns for urinary tract infection -UA shows evidence of UTI -Renal ultrasound US/ renal BI* [id number] IMPRESSION: No acute findings. -Antibiotics as above NSTEMI -No active chest pain but has been complaining of chest pain -Serial EKGs, start troponins, telemetry monitoring -Aspirin, statin -Therapeutic Lovenox CONCLUSIONS Diffuse hypokinesis of the left ventricule with an ejection fraction of 42%. Mildly dilated LV cavity. Mildly increased left atrial size. Thickened mitral valve. Mild-moderate mitral valve regurgitation. Estimated pulmonary artery peak systolic pressur is e 23 mmHg. Trace tricuspid valve regurgitation. Minimally thickened aortic valve.trace aortic valve regurgitation. 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 Estimated pulmonary artery peak systolic pressur is e 23 mmHg. Trace tricuspid valve regurgitation. There is no pericardial effusion. There are no intracardiac masses. 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
[2024-03-26] MEDS: pantoprazole 40 mg SDV IVP (19:41)
[2024-03-26] MEDS: enoxaparin 100 mg/mL Syringe 70 MG SUBCUT (19:41)
[2024-03-26] MEDS: tamsulosin 0.4 mg Capsule PO (20:59)
[2024-03-26] MEDS: VANCOMYCIN ADD-Vantage 1,000 MG in 0.9% NaCl ADD-Vantage 250 ML 250 MG IV (20:59)
[2024-03-26] MEDS: atorvastatin 40 mg Tablet PO (20:59)
[2024-03-27] VITALS (93 sets, daily range): BP systolic 77–128; BP diastolic 36–91; PULSE 66–110; RESP 12–37; TEMP 36–36.6; O2SAT 85–100
[2024-03-27 00:29] LABS: Glucose Point of Care 228 mg/dL (70-110)
--- NOTE | 2024-03-27 04:46 | ECG_ITS ---
[facility]24[facility] Pat Name: Andrew Sainz Department: Room: ICU11 Gender: Male Diagnostic Radiologist: : 1940 Requested By: Asaf Gaffney Order Number: [id number] Babatunde MD: Alli Quinn M.D. Measurements Intervals [place] Rate: 75 P: 94 PA: 180 QRS: 246 QRSD: 213 T: 72 QT: 499 QTc: 558 Interpretive Statements AV pacing with a frequent supraventricular ectopics ELECTRONIC ATRIAL PACEMAKER ELECTRONIC VENTRICULAR PACEMAKER ABNORMAL RHYTHM ECG Compared to ECG 03/24/2024 18:12:47 Atrial fibrillation no longer present Ventricular premature complex(es) no longer present Aberrant conduction of supraventricular beat(s) no longer present Intraventricular conduction delay no longer present ST (T wave) deviation no longer present Myocardial infarct finding no longer present Electronically Signed On 03-27-2024 17:06:07 NECK BAND OPERATOR by Alli Quinn M.D. [email or web address]
[2024-03-27 05:54] LABS: Basophils % 0.1 %; Hematocrit 33.2 % (37-53); Lymphocytes # 0.5 10^3/uL (0.8-4.8); Lymphocytes % 2.7 %; Mean Corpuscular HGB Conc 30.7 g/dL (30-55); Mean Corpuscular Hemoglobin 26.6 pg (27-33); Mean Corpuscular Volume 86.7 fl (82-101); Mean Platelet Volume 9.5 fL (7.4-10.4); Monocytes # 0.8 10^3/uL (0.2-0.9); Monocytes % 3.9 %; Neutrophils # 18.03 10^3/uL (1.8-7.7); Neutrophils % 92.6 %; Nucleated Red Blood Cells % 0 %; Platelet Count 285 10^3/cmm (157-399); Red Blood Count 3.83 10^6/uL (3.85-5.65); Red Cell Distribution Width 15.5 % (12.1-15.1); White Blood Count 19.47 10^3/uL (3.29-11.43)
[2024-03-27 06:13] LABS: Lactate (Lactic Acid level) 1.6 mmol/L (0.5-2.2)
[2024-03-27 06:15] LABS: NT Pro B Type Natriuretic Pept 20921 pg/mL (0-450)
[2024-03-27] MEDS: roflumilast 500 mcg Tablet PO (06:15)
[2024-03-27 06:23] LABS: Alanine Aminotransferase 14 U/L (0-41); Albumin Level 2.9 g/dL (3.5-5.2); Alkaline Phosphatase 87 U/L (40-130); Anion Gap 17.1 (5-19); Aspartate Amino Transferase 18 U/L (0-40); Blood Urea Nitrogen 51 mg/dL (8-23); Calcium 8.2 mg/dL (8.5-10.5); Carbon Dioxide 28 mmol/L (22-29); Chloride 103 mmol/L (98-107); Creatinine Clr Calc Pharmacy 26.7795; Globulin 1.9 g/dL (1.3-4.6); Glucose 265 mg/dL (65-115); Magnesium 2.1 mg/dL (1.7-2.3); Osmolality Calculated 321 mOsm/kg (285-295); Phosphorus 2.4 mg/dL (2.5-4.5); Potassium 4.1 mmol/L (3.5-5.1); Sodium 144 mmol/L (136-145); Total Bilirubin 0.2 mg/dL (0.15-1.2); Total Protein 4.8 g/dL (6.6-8.7)
[2024-03-27 06:29] LABS: Procalcitonin 0.25 ng/mL (0-0.5)
[2024-03-27] MEDS: piperacillin-tazobactam 3.375 GM in sodium chloride 0.9% (plus) 50 ML IV ×3 (07:38→22:54)
[2024-03-27] MEDS: insulin lispro 100 unit/1 mL SUBCUT ×4 (07:39→20:54)
[2024-03-27] MEDS: methylPREDNISolone sod succ 40 mg/mL INJ IVP ×2 (07:39→16:45)
[2024-03-27] MEDS: predniSONE 5 mg Tablet PO (08:01)
[2024-03-27] MEDS: sucralfate 1 gm Tablet PO ×2 (08:01→17:33)
[2024-03-27] MEDS: finasteride 5 mg Tablet PO (08:01)
[2024-03-27] MEDS: aspirin 81 mg EC Tablet PO (08:02)
[2024-03-27] MEDS: budesonide 0.5 mg/2 mL Neb INHALATION ×2 (08:05→20:01)
[2024-03-27] MEDS: ipratropium-albuterol 3 mL Neb INHALATION ×4 (08:05→20:01)
[2024-03-27] MEDS: norepinephrine 4 MG/250 ML BAG 22.5 MG IV ×2 (10:29→22:53)
[2024-03-27] MEDS: FUROsemide 10 mg/mL SDV 4mL 40 MG IVP ×2 (11:48→20:30)
[2024-03-27] MEDS: albumin 25 G/100 ML BAG 60 G IV (11:48)
[2024-03-27] MEDS: midodrine 5 mg TABLET 10 MG PO ×3 (11:49→22:56)
--- NOTE | 2024-03-27 12:52 | P.PN_ITS ---
Subjective 2 Subjective: Patient was seen this morning, he is alert oriented x 3, follows all commands, currently on 6 of Levophed, he is upset about his fluid restriction Vitals/I&O/Wt Last Vital Signs Temp 96.9 F L 03/27/24 12:00 Pulse 81 03/27/24 12:00 Resp 18 03/27/24 12:00 BP 114/76 03/27/24 12:00 Pulse Ox 99 03/27/24 11:40 O2 Del Method Nasal Cannula 03/27/24 11:40 O2 Flow Rate 4 03/27/24 11:40 03/26/24 03/27/24 03/27/24 22:59 06:59 14:59 Intake Total 286 / 1519.375 528 / 2047.375 840 / 840 Output Total 600 / 2200 1250 / 3450 450 / 450 Balance -314 / -680.625 -722 / -1402.625 390 / 390 Weight last 48 hrs Weight 78.834 kg Weight 78.2 kg Physical Exam 2 Const: COMMON NORMALS: no acute distress and patient oriented x3 Resp: COMMON NORMALS: normal respiratory effort, No retractions, No use of accessory muscles and clear to auscultation bilaterally AUSCULTATION: clear to auscultation bilaterally Cardio: COMMON NORMALS: regular rate, regular rhythm, S1 normal heart sound present and S2 normal heart sound present RATE: regular rate RHYTHM: r egular rhythm HEART SOUNDS: S1 normal heart sound present and S2 normal heart sound present GI: COMMON NORMALS: Normal to inspection, nondistended, normoactive bowel sounds present and non-tender Extremity: COMMON NORMALS: no pedal edema Neuro: COMMON NORMALS: patient oriented x3 Psych: COMMON NORMALS: mental status grossly normal Urinary Catheter Management: Mesa Latex: Cath Placed During This Visit: yes Reason for Continuing Indwelling Catheter: Accurate Measurement of Urinary Output in Critically Ill Patients Urinary Catheter Date of Insertion: 03/24/24 Urinary Catheter Time of Insertion: 18:00 Data 03/27/24 04:21 03/27/24 04:21 Micro: Microbiology 03/26/24 10:24 Gram Stain - Final Sputum - Expectorated Sputum Sputum Culture - Preliminary 03/24/24 20:40 Urine Culture - Final Urine,Clean Catch A&P Assessment and plan (1) Chest pain: (2) Non-ischemic cardiomyopathy: (3) Diabetes: Qualifiers: Diabetes mellitus type: type 2 Diabetes mellitus buttermaker insulin use: with buttermaker use Diabetes mellitus complication status: with kidney complications Diabetes mellitus complication detail: with chronic kidney disease Chronic kidney disease stage: stage 2 (mild) Qualified Code(s): E11.22 - Type 2 diabetes mellitus with diabetic chronic kidney disease; N18.2 - Chronic kidney disease, stage 2 (mild); 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.4 - 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 of 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 (4) Lactic acidosis: (5) Hypokalemia: (6) COPD with acute exacerbation: (7) NSTEMI (non-ST elevated myocardial infarction): (8) Acute hypoxic respiratory failure: (9) Pneumonia: (10) Acute renal failure: Plan Acute hypoxic respiratory failure -Multifactorial -Concerns for pneumonia -COPD exacerbation -CHF exacerbation Plan -Continue broad-spectrum antibiotic therapy -Vancomycin -Broaden antibiotic coverage to Zosyn -De-escalate to prednisone -DuoNeb -Budesonide -Start Lasix today 40 mg IV twice daily -Follow blood cultures -Follow respiratory viral panel within normal limits -Full code -Lovenox for DVT prophylaxis Shock -Multifactorial -Component of sepsis -Component of cardiogenic -Monitor in ICU -Maintain MAP in 65, will require Levophed, currently at 6 ? Order placed for PICC line Cardiac echo CONCLUSIONS Diffuse hypokinesis of the left ventricule with an ejection fraction of 42%. Mildly dilated LV cavity. Mildly increased left atrial size. Thickened mitral valve. Mild-moderate mitral valve regurgitation. Estimated pulmonary artery peak systolic pressur is e 23 mmHg. Trace tricuspid valve regurgitation. Minimally thickened aortic valve.trace aortic valve regurgitation. 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 Estimated pulmonary artery peak systolic pressur is e 23 mmHg. Trace tricuspid valve regurgitation. There is no pericardial effusion. There are no intracardiac masses. Compared to the study from 02/25/2024, LV ejection fraction appears to have improved from 30% to 40% Sepsis -Sepsis features met given acute hypoxic respiratory failure, tachypnea, tachycardia, elevated lactic acid Acute renal failure, creatinine up to 2.4 -Multifactorial -Component of sepsis -Possible cardiorenal syndrome -Monitor urine output, monitor creatinine -Place Mesa catheter Hypokalemia, receiving IV and p.o. replacement emergency room Concerns for urinary tract infection -UA shows evidence of UTI -Renal ultrasound US/ renal BI* [id number] IMPRESSION: No acute findings. -Antibiotics as above NSTEMI -No active chest pain but has been complaining of chest pain -Serial EKGs, start troponins, telemetry monitoring -Aspirin, statin -Therapeutic Lovenox CONCLUSIONS Diffuse hypokinesis of the left ventricule with an ejection fraction of 42%. Mildly dilated LV cavity. Mildly increased left atrial size. Thickened mitral valve. Mild-moderate mitral valve regurgitation. Estimated pulmonary artery peak systolic pressur is e 23 mmHg. Trace tricuspid valve regurgitation. Minimally thickened aortic valve.trace aortic valve regurgitation. 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 Estimated pulmonary artery peak systolic pressur is e 23 mmHg. Trace tricuspid valve regurgitation. There is no pericardial effusion. There are no intracardiac masses. Compared to the study from 02/25/2024, LV ejection fraction appears to have improved from 30% to 40% Plan for today, continue IV antibiotics, continue IV diuresis, remains on Levophed at 6, add on midodrine, de-escalate steroids Attestations 2 Medical Necessity Statement*: Patient requires hospitalization for shock, acute respiratory failure, acute renal failure, systolic CHF Diagnoses Chest pain R07.9 Non-ischemic cardiomyopathy I42.8 Type 2 diabetes mellitus with stage 2 chronic kidney disease, with long-term current use of insulin E11.22; N18.2; Z79.4 Diabetes mellitus type: type 2 Diabetes mellitus [facility] insulin use: with [facility] use Diabetes mellitus complication status: with kidney complications Diabetes mellitus complication detail: with chronic kidney disease Chronic kidney disease stage: stage 2 (mild) Lactic acidosis E87.20 Hypokalemia E87.6 COPD with acute exacerbation J44.1 NSTEMI (non-ST elevated myocardial infarction) I21.4 Acute hypoxic respiratory failure J96.01 Pneumonia J18.9 Acute renal failure N17.9
--- NOTE | 2024-03-27 14:30 | PC.SOCIAL ---
IMM updated IMM dated and initialed, copy given to patient and copy placed in chart.
[2024-03-27 18:47] LABS: Blood Urea Nitrogen 55 mg/dL (8-23); Calcium 8.7 mg/dL (8.5-10.5); Carbon Dioxide 29 mmol/L (22-29); Chloride 98 mmol/L (98-107); Creatinine Clr Calc Pharmacy 34.3317; Glucose 201 mg/dL (65-115); Osmolality Calculated 307 mOsm/kg (285-295); Sodium 138 mmol/L (136-145)
[2024-03-27 18:49] LABS: Anion Gap 15.1 (5-19); Potassium 4.1 mmol/L (3.5-5.1)
[2024-03-27] MEDS: pantoprazole 40 mg SDV IVP (20:27)
[2024-03-27] MEDS: enoxaparin 100 mg/mL Syringe 70 MG SUBCUT (20:31)
[2024-03-27] MEDS: potassium chloride ER 20 mEq Tablet 40 MEQ PO (20:32)
[2024-03-27] MEDS: tamsulosin 0.4 mg Capsule PO (20:32)
[2024-03-27] MEDS: atorvastatin 40 mg Tablet PO (20:33)
[2024-03-27] MEDS: VANCOMYCIN ADD-Vantage 1,000 MG in 0.9% NaCl ADD-Vantage 250 ML 250 MG IV (20:44)
[2024-03-28] VITALS (97 sets, daily range): BP systolic 72–124; BP diastolic 41–82; PULSE 68–131; RESP 11–28; TEMP 35.9–36.6; O2SAT 85–100
[2024-03-28 04:49] LABS: Basophils % 0.1 %; Hematocrit 35.7 % (37-53); Lymphocytes # 1.1 10^3/uL (0.8-4.8); Lymphocytes % 6.2 %; Mean Corpuscular HGB Conc 31.4 g/dL (30-55); Mean Corpuscular Hemoglobin 27.1 pg (27-33); Mean Corpuscular Volume 86.2 fl (82-101); Mean Platelet Volume 9.4 fL (7.4-10.4); Monocytes # 1.4 10^3/uL (0.2-0.9); Monocytes % 7.9 %; Neutrophils # 15.55 10^3/uL (1.8-7.7); Neutrophils % 85.3 %; Nucleated Red Blood Cells % 0 %; Platelet Count 317 10^3/cmm (157-399); Red Blood Count 4.14 10^6/uL (3.85-5.65); Red Cell Distribution Width 15.5 % (12.1-15.1)
[2024-03-28 05:08] LABS: Alanine Aminotransferase 16 U/L (0-41); Albumin Level 3.2 g/dL (3.5-5.2); Alkaline Phosphatase 84 U/L (40-130); Aspartate Amino Transferase 17 U/L (0-40); Blood Urea Nitrogen 55 mg/dL (8-23); Calcium 8.5 mg/dL (8.5-10.5); Carbon Dioxide 32 mmol/L (22-29); Chloride 98 mmol/L (98-107); Creatinine Clr Calc Pharmacy 30.8985; Globulin 2.5 g/dL (1.3-4.6); Glucose 175 mg/dL (65-115); Magnesium 1.9 mg/dL (1.7-2.3); Osmolality Calculated 313 mOsm/kg (285-295); Phosphorus 2.5 mg/dL (2.5-4.5); Sodium 142 mmol/L (136-145); Total Bilirubin 0.3 mg/dL (0.15-1.2); Total Protein 5.7 g/dL (6.6-8.7)
[2024-03-28 05:14] LABS: Lactate (Lactic Acid level) 1.8 mmol/L (0.5-2.2)
[2024-03-28 05:15] LABS: NT Pro B Type Natriuretic Pept 27239 pg/mL (0-450); Procalcitonin 0.24 ng/mL (0-0.5)
[2024-03-28] MEDS: midodrine 5 mg TABLET 10 MG PO ×4 (06:39→23:52)
[2024-03-28] MEDS: roflumilast 500 mcg Tablet PO (06:39)
--- NOTE | 2024-03-28 06:45 | ECG_ITS ---
[facility] Test Date: 2024-03-28 Pat Name: Andrew Sainz Department: Room: ICU11 Gender: Male Oracle Adf Consultant: : 1940 Requested By: Asaf Gaffney Order Number: [id number] Babatunde MD: Jose Mendiola M.D. Measurements Intervals [place] Rate: 81 P: 0 WV: 0 QRS: 253 QRSD: 216 T: 68 QT: 458 QTc: 533 Interpretive Statements ELECTRONIC VENTRICULAR PACEMAKER Compared to ECG 03/27/2024 04:53:51 AV dual-paced complex(es) or rhythm no longer present Atrial-paced complex(es) or rhythm no longer present Electronically Signed On 03-28-2024 21:15:16 GOVERNMENT AFFAIRS SPECIALIST by Jose Mendiola M.D. [id number]
[2024-03-28] MEDS: piperacillin-tazobactam 3.375 GM in sodium chloride 0.9% (plus) 50 ML IV ×3 (07:52→23:47)
[2024-03-28] MEDS: FUROsemide 10 mg/mL SDV 4mL 40 MG IVP ×2 (08:33→20:57)
[2024-03-28] MEDS: albumin 25 G/100 ML BAG 60 G IV ×2 (08:33→21:05)
[2024-03-28] MEDS: ipratropium-albuterol 3 mL Neb INHALATION ×4 (08:34→20:13)
[2024-03-28] MEDS: budesonide 0.5 mg/2 mL Neb INHALATION ×2 (08:34→20:13)
[2024-03-28] MEDS: predniSONE 5 mg Tablet PO (08:37)
[2024-03-28] MEDS: predniSONE 20 mg Tablet 40 MG PO (08:37)
[2024-03-28] MEDS: potassium chloride ER 20 mEq Tablet 40 MEQ PO (08:37)
[2024-03-28] MEDS: aspirin 81 mg EC Tablet PO (08:38)
[2024-03-28] MEDS: metOLazone 5 MG Tablet PO (08:38)
[2024-03-28] MEDS: finasteride 5 mg Tablet PO (08:38)
[2024-03-28] MEDS: sucralfate 1 gm Tablet PO ×2 (08:38→18:12)
[2024-03-28] MEDS: insulin lispro 100 unit/1 mL SUBCUT ×4 (08:47→21:14)
[2024-03-28] MEDS: norepinephrine 4 MG/250 ML BAG 22.5 MG IV ×2 (10:28→23:57)
[2024-03-28 11:26] LABS: Glucose Point of Care 175 mg/dL (70-110)
[2024-03-28 11:26] LABS: Glucose Point of Care 282 mg/dL (70-110)
[2024-03-28 11:28] LABS: C.Diff PCR (Lab) NEGATIVE (Negative)
[2024-03-28 11:45] LABS: Glucose Point of Care 258 mg/dL (70-110)
[2024-03-28 11:45] LABS: Glucose Point of Care 205 mg/dL (70-110)
[2024-03-28 11:45] LABS: Glucose Point of Care 236 mg/dL (70-110)
[2024-03-28] MEDS: pantoprazole 40 mg SDV IVP ×2 (11:59→23:52)
--- NOTE | 2024-03-28 12:08 | PC.NURSE ---
0949 -- patient had moderate sized black colored soft stool. Notified Dr. Resendez of color, order given to check fecal occult stool. Stool sent. Lovenox placed on hold, protonix changed to q12h, H&H ordered q 6 hours. [id number] -- Notified Dr. Resendez of positive fecal occult stool.
[2024-03-28 12:15] LABS: Glucose Point of Care 236 mg/dL (70-110)
[2024-03-28 12:40] LABS: Hematocrit 35.2 % (37-53)
[2024-03-28 13:04] LABS: Ferritin 135 ng/mL (30-400)
--- NOTE | 2024-03-28 14:13 | PM.PN ---
Subjective Subjective: Patient was seen this morning he tells he is breathing a lot better, although does have persistent episodes of shortness of breath at times, fevers, does have a cough, is frustrated about his fluid restrictions, he is wondering if he can have a snack during the night, remains on 6 of Levophed Vitals/I&O/Wt Last Vital Signs Temp 97.8 F 03/28/24 12:00 Pulse 131 H 03/28/24 12:15 Resp 19 H 03/28/24 12:15 BP 105/60 03/28/24 12:15 Pulse Ox 98 03/28/24 12:15 O2 Del Method Nasal Cannula 03/28/24 12:00 O2 Flow Rate 4 03/28/24 12:00 03/27/24 03/28/24 03/28/24 22:59 06:59 14:59 Intake Total 845.00 / 2025.00 50 / 2075.00 741.25 / 741.25 Output Total 1950 / 2400 2200 / 4600 1250 / 1250 Balance -1105.00 / -375.00 -2150 / -2525.00 -508.75 / -508.75 Weight last 48 hrs Weight 78.471 kg Weight 78.834 kg Physical Exam Const: COMMON NORMALS: no acute distress and patient oriented x3 Resp: COMMON NORMALS: normal respiratory effort, No retractions and No use of accessory muscles AUSCULTATION: crackles and wheezes Cardio: COMMON NORMALS: regular rate, regular rhythm, S1 normal heart sound present and S2 normal heart sound present RATE: regular rate RHYTHM: regular rhythm HEART SOUNDS: S1 normal heart sound present and S2 normal heart sound present GI: COMMON NORMALS: Normal to inspection, nondistended, normoactive bowel sounds present and non-tender Extremity: COMMON NORMALS: no pedal edema Neuro: COMMON NORMALS: patient oriented x3 Psych: COMMON NORMALS: mental status grossly normal Urinary Catheter Management: Mesa Latex: Cath Placed During This Visit: yes Reason for Continuing Indwelling Catheter: Accurate Measurement of Urinary Output in Critically Ill Patients Urinary Catheter Date of Insertion: 03/24/24 Urinary Catheter Time of Insertion: 18:00 Data 03/28/24 11:50 03/28/24 04:00 Micro: Microbiology 03/28/24 09:53 Occult Blood (FIT) - Final Stool - Stool Aspirate 03/26/24 10:24 Gram Stain - Final Sputum - Expectorated Sputum Sputum Culture - Preliminary Gram Negative Rods A&P Assessment and plan (1) Chest pain: (2) Non-ischemic cardiomyopathy: (3) Diabetes: Qualifiers: Diabetes mellitus type: type 2 Diabetes mellitus intermission coordinator insulin use: with detention use Diabetes mellitus complication status: with kidney complications Diabetes mellitus complication detail: with chronic kidney disease Chronic kidney disease stage: stage 2 (mild) Qualified Code(s): E11.22 - Type 2 diabetes mellitus with diabetic chronic kidney disease; N18.2 - Chronic kidney disease, stage 2 (mild); Z79.4 - salvage determiner (current) use of insulin (4) Lactic acidosis: (5) Hypokalemia: (6) COPD with acute exacerbation: (7) NSTEMI (non-ST elevated myocardial infarction): (8) Acute hypoxic respiratory failure: (9) Pneumonia: (10) Acute renal failure: Plan Acute hypoxic respiratory failure -Multifactorial -Concerns for pneumonia, sputum culture showing gram-negative rods -COPD exacerbation -CHF exacerbation Plan -Continue broad-spectrum antibiotic therapy -Vancomycin -Broaden antibiotic coverage to Zosyn -De-escalate to prednisone -DuoNeb -Budesonide -Continue 40 mg IV twice daily -Follow blood cultures, so far no growth -Follow respiratory viral panel within normal limits -Sputum culture showing gram-negative rods -Full code -Lovenox for DVT prophylaxis Shock -Multifactorial -Component of sepsis -Component of cardiogenic -Monitor in ICU -Maintain MAP in 65, will require Levophed, currently at 6 ? PICC line Cardiac echo CONCLUSIONS Diffuse hypokinesis of the left ventricule with an ejection fraction of 42%. Mildly dilated LV cavity. Mildly increased left atrial size. Thickened mitral valve. Mild-moderate mitral valve regurgitation. Estimated pulmonary artery peak systolic pressur is e 23 mmHg. Trace tricuspid valve regurgitation. Minimally thickened aortic valve.trace aortic valve regurgitation. 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 Estimated pulmonary artery peak systolic pressur is e 23 mmHg. Trace tricuspid valve regurgitation. There is no pericardial effusion. There are no intracardiac masses. Compared to the study from 02/25/2024, LV ejection fraction appears to have improved from 30% to 40% Sepsis -Sepsis features met given acute hypoxic respiratory failure, tachypnea, tachycardia, elevated lactic acid Acute renal failure, creatinine up to 2.0 -Multifactorial -Component of sepsis -Possible cardiorenal syndrome -Monitor urine output, monitor creatinine -Place Mesa catheter Hypokalemia, receiving IV and p.o. replacement emergency room Concerns for urinary tract infection -UA shows evidence of UTI -Renal ultrasound US/ renal BI* [id number] IMPRESSION: No acute findings. -Antibiotics as above NSTEMI -No active chest pain but has been complaining of chest pain -Serial EKGs, start troponins, telemetry monitoring -Aspirin, statin -Therapeutic Lovenox CONCLUSIONS Diffuse hypokinesis of the left ventricule with an ejection fraction of 42%. Mildly dilated LV cavity. Mildly increased left atrial size. Thickened mitral valve. Mild-moderate mitral valve regurgitation. Estimated pulmonary artery peak systolic pressur is e 23 mmHg. Trace tricuspid valve regurgitation. Minimally thickened aortic valve.trace aortic valve regurgitation. 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 Estimated pulmonary artery peak systolic pressur is e 23 mmHg. Trace tricuspid valve regurgitation. There is no pericardial effusion. There are no intracardiac masses. Compared to the study from 02/25/2024, LV ejection fraction appears to have improved from 30% to 40% Black tarry stool, Hemoccult positive stool -Protonix, Carafate -Monitor hemoglobin -Therapeutic Lovenox placed on hold Plan for today, continue IV Levophed, continue IV antibiotics, continue IV diuresis, hold therapeutic Lovenox watch hemoglobin Attestations Medical Necessity Statement*: Patient requires hospitalization for acute hypoxic respiratory failure, pneumonia, CHF, shock, requiring Levophed, black tarry stool Diagnoses Chest pain R07.9 Non-ischemic cardiomyopathy I42.8 Type 2 diabetes mellitus with stage 2 chronic kidney disease, with long-term current use of insulin E11.22; N18.2; Z79.4 Diabetes mellitus type: type 2 Diabetes mellitus detention insulin use: with detention use Diabetes mellitus complication status: with kidney complications Diabetes mellitus complication detail: with chronic kidney disease Chronic kidney disease stage: stage 2 (mild) Lactic acidosis E87.20 Hypokalemia E87.6 COPD with acute exacerbation J44.1 NSTEMI (non-ST elevated myocardial infarction) I21.4 Acute hypoxic respiratory failure J96.01 Pneumonia J18.9 Acute renal failure N17.9
--- NOTE | 2024-03-28 14:20 | PC.NURSE ---
PT at bedside. Patient assisted to sitting position on side of bed and then to standing position on side of bed. Blood pressure remains stable, patient complains of chest pain and begins to cry. Notified Dr. Resendez.
[2024-03-28 17:41] LABS: Glucose Point of Care 242 mg/dL (70-110)
[2024-03-28] MEDS: tamsulosin 0.4 mg Capsule PO (20:59)
[2024-03-28] MEDS: atorvastatin 40 mg Tablet PO (20:59)
[2024-03-28 21:02] LABS: Vancomycin Trough 19.3 ug/mL (10-15)
[2024-03-28 21:12] LABS: Glucose Point of Care 265 mg/dL (70-110)
[2024-03-28] MEDS: VANCOMYCIN ADD-Vantage 1,000 MG in 0.9% NaCl ADD-Vantage 250 ML 250 MG IV (21:28)
[2024-03-28 23:53] LABS: Hematocrit 32.4 % (37-53)
[2024-03-29] VITALS (101 sets, daily range): BP systolic 69–148; BP diastolic 39–84; PULSE 67–134; RESP 12–35; TEMP 36.5–36.7; O2SAT 81–100
[2024-03-29 05:13] LABS: Basophils % 0.1 %; Hematocrit 34.2 % (37-53); Lymphocytes # 1.6 10^3/uL (0.8-4.8); Lymphocytes % 10.2 %; Mean Corpuscular HGB Conc 31.3 g/dL (30-55); Mean Corpuscular Hemoglobin 27.1 pg (27-33); Mean Corpuscular Volume 86.6 fl (82-101); Monocytes # 1.4 10^3/uL (0.2-0.9); Monocytes % 9.2 %; Neutrophils # 12.17 10^3/uL (1.8-7.7); Neutrophils % 79.8 %; Nucleated Red Blood Cells % 0 %; Platelet Count 264 10^3/cmm (157-399); Red Blood Count 3.95 10^6/uL (3.85-5.65); Red Cell Distribution Width 15.7 % (12.1-15.1); White Blood Count 15.23 10^3/uL (3.29-11.43)
[2024-03-29 05:34] LABS: Alanine Aminotransferase 18 U/L (0-41); Albumin Level 3.5 g/dL (3.5-5.2); Alkaline Phosphatase 71 U/L (40-130); Aspartate Amino Transferase 15 U/L (0-40); Blood Urea Nitrogen 68 mg/dL (8-23); Calcium 8.8 mg/dL (8.5-10.5); Carbon Dioxide 32 mmol/L (22-29); Chloride 94 mmol/L (98-107); Creatinine Clr Calc Pharmacy 32.4632; Globulin 2.2 g/dL (1.3-4.6); Glucose 221 mg/dL (65-115); Magnesium 1.9 mg/dL (1.7-2.3); Osmolality Calculated 315 mOsm/kg (285-295); Phosphorus 2.9 mg/dL (2.5-4.5); Sodium 139 mmol/L (136-145); Total Bilirubin 0.3 mg/dL (0.15-1.2); Total Protein 5.7 g/dL (6.6-8.7)
[2024-03-29 05:43] LABS: Anion Gap 16.5 (5-19); Potassium 3.5 mmol/L (3.5-5.1); Procalcitonin 0.23 ng/mL (0-0.5)
[2024-03-29 05:55] LABS: NT Pro B Type Natriuretic Pept 16629 pg/mL (0-450)
[2024-03-29] MEDS: midodrine 5 mg TABLET 10 MG PO ×3 (05:57→17:21)
[2024-03-29] MEDS: roflumilast 500 mcg Tablet PO (05:57)
--- NOTE | 2024-03-29 07:00 | XRR_ITS ---
PROCEDURE INFORMATION: Exam: XR Chest Exam date and time: 03/29/2024 5:33 AM Age: 83 years old Clinical indication: Shortness of breath; Additional info: SOB TECHNIQUE: Imaging protocol: Radiologic exam of the chest. Views: 1 view. COMPARISON: CR (CHEST, ) 03/25/2024 4:54 PM FINDINGS: Tubes, catheters and devices: Multiple electronic devices project over the chest. PICC line terminates in the SVC. Two lead pacemaker. Lungs: Unremarkable. No consolidation. Pleural spaces: Unremarkable. No pleural effusion. No pneumothorax. Heart/Mediastinum: Unremarkable. No cardiomegaly. Bones/joints: Unremarkable. XR/XR chest 1V portable [id number] IMPRESSION: No acute findings.
[2024-03-29] MEDS: albumin 25 G/100 ML BAG 60 G IV ×2 (07:39→20:28)
[2024-03-29] MEDS: FUROsemide 10 mg/mL SDV 4mL 40 MG IVP ×2 (07:40→20:32)
[2024-03-29] MEDS: piperacillin-tazobactam 3.375 GM in sodium chloride 0.9% (plus) 50 ML IV ×2 (07:40→17:21)
[2024-03-29 07:43] LABS: Glucose Point of Care 187 mg/dL (70-110)
[2024-03-29] MEDS: norepinephrine 4 MG/250 ML BAG 22.5 MG IV ×2 (07:56→17:24)
[2024-03-29] MEDS: insulin lispro 100 unit/1 mL SUBCUT ×4 (08:22→20:42)
[2024-03-29] MEDS: potassium chloride ER 20 mEq Tablet 40 MEQ PO (08:23)
[2024-03-29] MEDS: aspirin 81 mg EC Tablet PO (08:23)
[2024-03-29] MEDS: sucralfate 1 gm Tablet PO ×2 (08:23→17:21)
[2024-03-29] MEDS: predniSONE 20 mg Tablet 40 MG PO (08:23)
[2024-03-29] MEDS: metOLazone 5 MG Tablet PO (08:23)
[2024-03-29] MEDS: predniSONE 5 mg Tablet PO (08:23)
[2024-03-29] MEDS: finasteride 5 mg Tablet PO (08:24)
[2024-03-29] MEDS: budesonide 0.5 mg/2 mL Neb INHALATION ×2 (08:42→20:09)
[2024-03-29] MEDS: ipratropium-albuterol 3 mL Neb INHALATION ×4 (08:42→20:09)
[2024-03-29] MEDS: lidocaine 1% 5 ML in potassium chloride premix 100 ML 52.5 ML IV (08:46)
[2024-03-29] MEDS: amiodarone 200 mg Tablet PO (08:46)
[2024-03-29 12:38] LABS: Glucose Point of Care 197 mg/dL (70-110)
[2024-03-29] MEDS: pantoprazole 40 mg SDV IVP (12:55)
--- NOTE | 2024-03-29 15:56 | PM.PN ---
Subjective Subjective: Patient was seen this morning, he tells me he is breathing has improved, no fevers, no chills, no cough, discussed sputum positive cultures, continue IV antibiotics,, leukocytosis improving Vitals/I&O/Wt Last Vital Signs Temp 97.8 F 03/29/24 12:45 Pulse 83 03/29/24 15:42 Resp 16 03/29/24 15:41 BP 94/50 03/29/24 13:15 Pulse Ox 93 03/29/24 15:41 O2 Del Method Nasal Cannula 03/29/24 15:41 O2 Flow Rate 4 03/29/24 15:41 03/29/24 03/29/24 03/29/24 06:59 14:59 22:59 Intake Total 540.167 / 2514.250 510.5 / 510.5 Output Total 2400 / 4050 1675 / 1675 Balance -1859.833 / -1535.750 -1164.5 / -1164.5 Weight last 48 hrs Weight 75.5 kg Weight 78.471 kg Physical Exam Const: COMMON NORMALS: no acute distress and patient oriented x3 Resp: COMMON NORMALS: normal respiratory effort, No retractions and No use of accessory muscles AUSCULTATION: crackles and wheezes Cardio: COMMON NORMALS: regular rate, regular rhythm, S1 normal heart sound present and S2 normal heart sound present RATE: regular rate RHYTHM: regular rhythm HEART SOUNDS: S1 normal heart sound present and S2 normal heart sound present GI: COMMON NORMALS: Normal to inspection, nondistended, normoactive bowel sounds present and non-tender Extremity: COMMON NORMALS: no pedal edema Neuro: COMMON NORMALS: patient oriented x3 Psych: COMMON NORMALS: mental status grossly normal Urinary Catheter Management: Mesa Latex: Cath Placed During This Visit: yes Reason for Continuing Indwelling Catheter: Accurate Measurement of Urinary Output in Critically Ill Patients Urinary Catheter Date of Insertion: 03/24/24 Urinary Catheter Time of Insertion: 18:00 Data 03/29/24 04:54 03/29/24 04:54 Micro: Microbiology 03/26/24 10:24 Gram Stain - Final Sputum - Expectorated Sputum Sputum Culture - Preliminary Gram Negative Rods 03/28/24 09:53 Occult Blood (FIT) - Final Stool - Stool Aspirate A&P Assessment and plan (1) Chest pain: (2) Non-ischemic cardiomyopathy: (3) Diabetes: Qualifiers: Diabetes mellitus type: type 2 Diabetes mellitus termination clerk insulin use: with termination clerk use Diabetes mellitus complication status: with kidney complications Diabetes mellitus complication detail: with chronic kidney disease Chronic kidney disease stage: stage 2 (mild) Qualified Code(s): E11.22 - Type 2 diabetes mellitus with diabetic chronic kidney disease; N18.2 - Chronic kidney disease, stage 2 (mild); Z79.4 - custodial (current) use of insulin (4) Lactic acidosis: (5) Hypokalemia: (6) COPD with acute exacerbation: (7) NSTEMI (non-ST elevated myocardial infarction): (8) Acute hypoxic respiratory failure: (9) Pneumonia: (10) Acute renal failure: Plan Acute hypoxic respiratory failure -Multifactorial -Concerns for pneumonia, sputum culture showing gram-negative rods -COPD exacerbation -CHF exacerbation Plan -Continue broad-spectrum antibiotic therapy -Vancomycin -Broaden antibiotic coverage to Zosyn -De-escalate to prednisone -DuoNeb -Budesonide -Continue 40 mg IV twice daily -Follow blood cultures, so far no growth -Follow respiratory viral panel within normal limits -Sputum culture showing gram-negative rods -Full code -Lovenox for DVT prophylaxis Shock -Multifactorial -Component of sepsis -Component of cardiogenic -Monitor in ICU -Maintain MAP in 65, will require Levophed, currently at 6 ? PICC line Cardiac echo CONCLUSIONS Diffuse hypokinesis of the left ventricule with an ejection fraction of 42%. Mildly dilated LV cavity. Mildly increased left atrial size. Thickened mitral valve. Mild-moderate mitral valve regurgitation. Estimated pulmonary artery peak systolic pressur is e 23 mmHg. Trace tricuspid valve regurgitation. Minimally thickened aortic valve.trace aortic valve regurgitation. 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 Estimated pulmonary artery peak systolic pressur is e 23 mmHg. Trace tricuspid valve regurgitation. There is no pericardial effusion. There are no intracardiac masses. Compared to the study from 02/25/2024, LV ejection fraction appears to have improved from 30% to 40% Sepsis -Sepsis features met given acute hypoxic respiratory failure, tachypnea, tachycardia, elevated lactic acid Acute renal failure, creatinine up to 2.0 -Multifactorial -Component of sepsis -Possible cardiorenal syndrome -Monitor urine output, monitor creatinine -Place Mesa catheter Hypokalemia, receiving IV and p.o. replacement emergency room Concerns for urinary tract infection -UA shows evidence of UTI -Renal ultrasound US/ renal BI* [id number] IMPRESSION: No acute findings. -Antibiotics as above NSTEMI -No active chest pain but has been complaining of chest pain -Serial EKGs, start troponins, telemetry monitoring -Aspirin, statin -Therapeutic Lovenox CONCLUSIONS Diffuse hypokinesis of the left ventricule with an ejection fraction of 42%. Mildly dilated LV cavity. Mildly increased left atrial size. Thickened mitral valve. Mild-moderate mitral valve regurgitation. Estimated pulmonary artery peak systolic pressur is e 23 mmHg. Trace tricuspid valve regurgitation. Minimally thickened aortic valve.trace aortic valve regurgitation. 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 Estimated pulmonary artery peak systolic pressur is e 23 mmHg. Trace tricuspid valve regurgitation. There is no pericardial effusion. There are no intracardiac masses. Compared to the study from 02/25/2024, LV ejection fraction appears to have improved from 30% to 40% Black tarry stool, Hemoccult positive stool -Protonix, Carafate -Monitor hemoglobin -Therapeutic Lovenox placed on hold Plan for today, continue IV Levophed, continue IV antibiotics, continue IV diuresis, hold therapeutic Lovenox watch hemoglobin Attestations Medical Necessity Statement*: Patient requires hospitalization for acute anemia, NSTEMI, acute renal failure, respiratory failure, CHF, pneumonia Diagnoses Chest pain R07.9 Non-ischemic cardiomyopathy I42.8 Type 2 diabetes mellitus with stage 2 chronic kidney disease, with long-term current use of insulin E11.22; N18.2; Z79.4 Diabetes mellitus type: type 2 Diabetes mellitus [facility] insulin use: with termination clerk use Diabetes mellitus complication status: with kidney complications Diabetes mellitus complication detail: with chronic kidney disease Chronic kidney disease stage: stage 2 (mild) Lactic acidosis E87.20 Hypokalemia E87.6 COPD with acute exacerbation J44.1 NSTEMI (non-ST elevated myocardial infarction) I21.4 Acute hypoxic respiratory failure J96.01 Pneumonia J18.9 Acute renal failure N17.9
[2024-03-29 17:28] LABS: Glucose Point of Care 287 mg/dL (70-110)
--- NOTE | 2024-03-29 19:31 | PC.NURSE ---
SHift SUmmary: uneventful shift. Started on PO amiodarone this morning. 2225ML of urine out. Heart rate has been less variable compared to yesterday. Still requires 6-8mcg of levophed. Up to a chair for most of the day.
[2024-03-29] MEDS: enoxaparin 100 mg/mL Syringe 70 MG SUBCUT (20:24)
[2024-03-29 20:38] LABS: Glucose Point of Care 327 mg/dL (70-110)
[2024-03-29] MEDS: atorvastatin 40 mg Tablet PO (20:40)
[2024-03-29] MEDS: tamsulosin 0.4 mg Capsule PO (20:41)
[2024-03-29] MEDS: VANCOMYCIN ADD-Vantage 1,000 MG in 0.9% NaCl ADD-Vantage 250 ML 250 MG IV (20:46)
[2024-03-30] VITALS (102 sets, daily range): BP systolic 67–125; BP diastolic 35–87; PULSE 70–129; RESP 12–34; TEMP 36.7; O2SAT 82–100
[2024-03-30] MEDS: midodrine 5 mg TABLET 10 MG PO ×5 (00:17→23:31)
[2024-03-30] MEDS: pantoprazole 40 mg SDV IVP ×3 (00:17→23:32)
[2024-03-30] MEDS: piperacillin-tazobactam 3.375 GM in sodium chloride 0.9% (plus) 50 ML IV ×3 (00:19→16:17)
[2024-03-30] MEDS: norepinephrine 4 MG/250 ML BAG 37.5 MG IV (01:03)
[2024-03-30 05:25] LABS: Basophils % 0.1 %; Hematocrit 33.4 % (37-53); Lymphocytes # 1.1 10^3/uL (0.8-4.8); Lymphocytes % 6.7 %; Mean Corpuscular HGB Conc 31.4 g/dL (30-55); Mean Corpuscular Hemoglobin 27.3 pg (27-33); Mean Platelet Volume 9.4 fL (7.4-10.4); Monocytes # 1.2 10^3/uL (0.2-0.9); Monocytes % 7.5 %; Neutrophils # 13.81 10^3/uL (1.8-7.7); Neutrophils % 85.1 %; Nucleated Red Blood Cells % 0 %; Platelet Count 264 10^3/cmm (157-399); Red Blood Count 3.84 10^6/uL (3.85-5.65); Red Cell Distribution Width 15.7 % (12.1-15.1); White Blood Count 16.22 10^3/uL (3.29-11.43)
[2024-03-30] MEDS: roflumilast 500 mcg Tablet PO (05:42)
[2024-03-30 05:55] LABS: Procalcitonin 0.24 ng/mL (0-0.5)
[2024-03-30 06:00] LABS: Alanine Aminotransferase 18 U/L (0-41); Alkaline Phosphatase 72 U/L (40-130); Aspartate Amino Transferase 16 U/L (0-40); Blood Urea Nitrogen 73 mg/dL (8-23); Calcium 9.1 mg/dL (8.5-10.5); Carbon Dioxide 33 mmol/L (22-29); Chloride 95 mmol/L (98-107); Creatinine Clr Calc Pharmacy 31.9594; Glucose 216 mg/dL (65-115); Magnesium 1.8 mg/dL (1.7-2.3); Osmolality Calculated 320 mOsm/kg (285-295); Phosphorus 3.3 mg/dL (2.5-4.5); Sodium 141 mmol/L (136-145); Total Bilirubin 0.4 mg/dL (0.15-1.2)
[2024-03-30 06:02] LABS: Anion Gap 16.3 (5-19); NT Pro B Type Natriuretic Pept 14819 pg/mL (0-450); Potassium 3.3 mmol/L (3.5-5.1)
[2024-03-30 07:57] LABS: Glucose Point of Care 209 mg/dL (70-110)
[2024-03-30] MEDS: potassium chloride ER 20 mEq Tablet 40 MEQ PO (08:34)
[2024-03-30] MEDS: aspirin 81 mg EC Tablet PO (08:34)
[2024-03-30] MEDS: predniSONE 5 mg Tablet PO (08:34)
[2024-03-30] MEDS: metOLazone 5 MG Tablet PO (08:35)
[2024-03-30] MEDS: amiodarone 200 mg Tablet PO (08:35)
[2024-03-30] MEDS: sucralfate 1 gm Tablet PO ×2 (08:35→18:06)
[2024-03-30] MEDS: albumin 25 G/100 ML BAG 60 G IV (08:35)
[2024-03-30] MEDS: predniSONE 20 mg Tablet 40 MG PO (08:35)
[2024-03-30] MEDS: lidocaine 1% 5 ML in potassium chloride premix 100 ML 52.5 ML IV (08:35)
[2024-03-30] MEDS: finasteride 5 mg Tablet PO (08:35)
[2024-03-30] MEDS: FUROsemide 10 mg/mL SDV 4mL 40 MG IVP (08:36)
[2024-03-30] MEDS: insulin lispro 100 unit/1 mL SUBCUT ×4 (08:38→21:40)
[2024-03-30] MEDS: budesonide 0.5 mg/2 mL Neb INHALATION ×2 (08:56→20:04)
[2024-03-30] MEDS: ipratropium-albuterol 3 mL Neb INHALATION ×4 (08:56→20:04)
[2024-03-30 11:35] LABS: Glucose Point of Care 153 mg/dL (70-110)
[2024-03-30] MEDS: norepinephrine 4 MG/250 ML BAG 15 MG IV (13:23)
[2024-03-30 18:04] LABS: Glucose Point of Care 330 mg/dL (70-110)
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
[2024-03-30] MEDS: levoFLOXacin 750 mg Tablet PO (18:48)
[2024-03-30] MEDS: FUROsemide 40 mg Tablet PO (18:48)
[2024-03-30 21:32] LABS: Glucose Point of Care 153 mg/dL (70-110)
[2024-03-30] MEDS: tamsulosin 0.4 mg Capsule PO (21:34)
[2024-03-30] MEDS: atorvastatin 40 mg Tablet PO (21:34)
[2024-03-30] MEDS: enoxaparin 100 mg/mL Syringe 70 MG SUBCUT (21:38)
[2024-03-31] VITALS (98 sets, daily range): BP systolic 57–125; BP diastolic 36–93; PULSE 69–182; RESP 10–37; TEMP 36.3–36.7; O2SAT 90–100
[2024-03-31 03:32] LABS: Basophils % 0.1 %; Hematocrit 33.8 % (37-53); Lymphocytes # 1.1 10^3/uL (0.8-4.8); Lymphocytes % 7.3 %; Mean Corpuscular HGB Conc 31.4 g/dL (30-55); Mean Corpuscular Hemoglobin 27.5 pg (27-33); Mean Corpuscular Volume 87.8 fl (82-101); Mean Platelet Volume 9.1 fL (7.4-10.4); Monocytes # 1.2 10^3/uL (0.2-0.9); Monocytes % 7.7 %; Neutrophils # 12.86 10^3/uL (1.8-7.7); Nucleated Red Blood Cells % 0 %; Platelet Count 244 10^3/cmm (157-399); Red Blood Count 3.85 10^6/uL (3.85-5.65); Red Cell Distribution Width 15.9 % (12.1-15.1); White Blood Count 15.28 10^3/uL (3.29-11.43)
[2024-03-31 03:46] LABS: Alanine Aminotransferase 20 U/L (0-41); Alkaline Phosphatase 79 U/L (40-130); Aspartate Amino Transferase 19 U/L (0-40); Calcium 9.5 mg/dL (8.5-10.5); Carbon Dioxide 33 mmol/L (22-29); Chloride 96 mmol/L (98-107); Creatinine Clr Calc Pharmacy 26.4012; Globulin 1.7 g/dL (1.3-4.6); Glucose 179 mg/dL (65-115); Magnesium 1.9 mg/dL (1.7-2.3); Osmolality Calculated 326 mOsm/kg (285-295); Phosphorus 3.8 mg/dL (2.5-4.5); Sodium 143 mmol/L (136-145); Total Bilirubin 0.4 mg/dL (0.15-1.2); Total Protein 5.7 g/dL (6.6-8.7)
[2024-03-31 03:54] LABS: NT Pro B Type Natriuretic Pept 10654 pg/mL (0-450)
[2024-03-31 03:59] LABS: Procalcitonin 0.21 ng/mL (0-0.5)
[2024-03-31] MEDS: ondansetron 2 mg/ML SDV 2 mL 4 MG IVP (04:05)
[2024-03-31 04:10] LABS: Anion Gap 17.6 (5-19); Potassium 3.6 mmol/L (3.5-5.1)
[2024-03-31 04:13] LABS: Blood Urea Nitrogen 84 mg/dL (8-23)
[2024-03-31] MEDS: roflumilast 500 mcg Tablet PO (05:57)
[2024-03-31] MEDS: FUROsemide 40 mg Tablet PO (05:57)
[2024-03-31] MEDS: midodrine 5 mg TABLET 10 MG PO ×4 (05:57→23:35)
[2024-03-31] MEDS: norepinephrine 4 MG/250 ML BAG 15 MG IV (07:07)
[2024-03-31 07:51] LABS: Glucose Point of Care 192 mg/dL (70-110)
[2024-03-31] MEDS: budesonide 0.5 mg/2 mL Neb INHALATION ×2 (07:58→20:09)
[2024-03-31] MEDS: ipratropium-albuterol 3 mL Neb INHALATION ×4 (07:58→20:09)
[2024-03-31] MEDS: insulin lispro 100 unit/1 mL SUBCUT ×4 (08:24→20:08)
[2024-03-31] MEDS: aspirin 81 mg EC Tablet PO (08:24)
[2024-03-31] MEDS: predniSONE 20 mg Tablet 40 MG PO (08:25)
[2024-03-31] MEDS: finasteride 5 mg Tablet PO (08:25)
[2024-03-31] MEDS: sucralfate 1 gm Tablet PO ×2 (08:25→17:32)
[2024-03-31] MEDS: amiodarone 200 mg Tablet PO (08:25)
[2024-03-31] MEDS: potassium chloride ER 20 mEq Tablet 40 MEQ PO (08:25)
[2024-03-31] MEDS: predniSONE 5 mg Tablet PO (08:25)
[2024-03-31 11:30] LABS: Glucose Point of Care 317 mg/dL (70-110)
--- NOTE | 2024-03-31 16:05 | P.PN_ITS ---
Subjective 2 Subjective: Patient was seen this morning, sitting up in a chair, breathing a bit easier, is still on Levophed, discussed holding off on diuresis today, weaning off Levophed, he is understandable, Vitals/I&O/Wt Last Vital Signs Temp 98.1 F 03/31/24 08:15 Pulse 73 03/31/24 14:00 Resp 27 H 03/31/24 14:00 BP 96/51 03/31/24 14:00 Pulse Ox 98 03/31/24 14:00 O2 Del Method Nasal Cannula 03/31/24 14:00 O2 Flow Rate 4 03/31/24 14:00 03/31/24 03/31/24 03/31/24 06:59 14:59 22:59 Intake Total 901.500 / 2247.000 407.50 / 407.50 Output Total 1500 / 1500 350 / 350 Balance -598.500 / 747.000 57.50 / 57.50 Physical Exam 2 Const: COMMON NORMALS: no acute distress and patient oriented x3 Resp: COMMON NORMALS: normal respiratory effort, No retractions and No use of accessory muscles AUSCULTATION: wheezes Cardio: COMMON NORMALS: regular rate, regular rhythm, S1 normal heart sound present and S2 normal heart sound present RATE: regular rate RHYTHM: r egular rhythm HEART SOUNDS: S1 normal heart sound present and S2 normal heart sound present GI: COMMON NORMALS: Normal to inspection, nondistended, normoactive bowel sounds present and non-tender Extremity: COMMON NORMALS: no pedal edema Neuro: COMMON NORMALS: patient oriented x3 Psych: COMMON NORMALS: mental status grossly normal Urinary Catheter Management: Mesa Latex: Cath Placed During This Visit: yes Reason for Continuing Indwelling Catheter: Accurate Measurement of Urinary Output in Critically Ill Patients Urinary Catheter Date of Insertion: 03/24/24 Urinary Catheter Time of Insertion: 18:00 Data 03/31/24 03:15 03/31/24 03:15 A&P Assessment and plan (1) Chest pain: (2) Non-ischemic cardiomyopathy: (3) Diabetes: Qualifiers: Diabetes mellitus type: type 2 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: with ocean transportation intermediary use Diabetes mellitus complication status: with kidney complications Diabetes mellitus complication detail: with chronic kidney disease Chronic kidney disease stage: stage 2 (mild) Qualified Code(s): E11.22 - Type 2 diabetes mellitus with diabetic chronic kidney disease; N18.2 - Chronic kidney disease, stage 2 (mild); Z79.4 - [facility] (current) use of insulin (4) Lactic acidosis: (5) Hypokalemia: (6) COPD with acute exacerbation: (7) NSTEMI (non-ST elevated myocardial infarction): (8) Acute hypoxic respiratory failure: (9) Pneumonia: (10) Acute renal failure: Plan Acute hypoxic respiratory failure -Multifactorial - pneumonia, Stenotrophomonas maltophilia -COPD exacerbation -CHF exacerbation Plan -Continue broad-spectrum antibiotic therapy -De-escalate antibiotics to Levaquin -De-escalate to prednisone -DuoNeb -Budesonide -Will de-escalate Lasix in the evening -Follow blood cultures, so far no growth -Follow respiratory viral panel within normal limits -Sputum culture showing gram-negative rods -Full code -Lovenox for DVT prophylaxis Shock -Multifactorial -Component of sepsis -Component of cardiogenic -Monitor in ICU -Maintain MAP in 65, will require Levophed, currently at 4, wean off Levophed ? PICC line Cardiac echo CONCLUSIONS Diffuse hypokinesis of the left ventricule with an ejection fraction of 42%. Mildly dilated LV cavity. Mildly increased left atrial size. Thickened mitral valve. Mild-moderate mitral valve regurgitation. Estimated pulmonary artery peak systolic pressur is e 23 mmHg. Trace tricuspid valve regurgitation. Minimally thickened aortic valve.trace aortic valve regurgitation. 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 Estimated pulmonary artery peak systolic pressur is e 23 mmHg. Trace tricuspid valve regurgitation. There is no pericardial effusion. There are no intracardiac masses. Compared to the study from 02/25/2024, LV ejection fraction appears to have improved from 30% to 40% Sepsis -Sepsis features met given acute hypoxic respiratory failure, tachypnea, tachycardia, elevated lactic acid Acute renal failure, creatinine up to 1.9 -Multifactorial -Component of sepsis -Possible cardiorenal syndrome -Monitor urine output, monitor creatinine -Place Mesa catheter Hypokalemia, receiving IV and p.o. replacement emergency room Concerns for urinary tract infection -UA shows evidence of UTI -Renal ultrasound US/US renal BI* [id number] IMPRESSION: No acute findings. -Antibiotics as above NSTEMI -No active chest pain but has been complaining of chest pain -Serial EKGs, start troponins, telemetry monitoring -Aspirin, statin -Therapeutic Lovenox CONCLUSIONS Diffuse hypokinesis of the left ventricule with an ejection fraction of 42%. Mildly dilated LV cavity. Mildly increased left atrial size. Thickened mitral valve. Mild-moderate mitral valve regurgitation. Estimated pulmonary artery peak systolic pressur is e 23 mmHg. Trace tricuspid valve regurgitation. Minimally thickened aortic valve.trace aortic valve regurgitation. 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 Estimated pulmonary artery peak systolic pressur is e 23 mmHg. Trace tricuspid valve regurgitation. There is no pericardial effusion. There are no intracardiac masses. Compared to the study from 02/25/2024, LV ejection fraction appears to have improved from 30% to 40% Black tarry stool, Hemoccult positive stool, hemoglobin has been stable no recurrent black tarry stools -Protonix, Carafate -Monitor hemoglobin -Therapeutic Lovenox Plan for today hold Lasix for today switch to p.o. Levaquin, continue midodrine, PT OT, wean off Levophed currently at 2 Attestations 2 Medical Necessity Statement*: Patient requires hospitalization for persistent shock, requiring Levophed, CHF, recurrent IV diuresis Diagnoses Chest pain R07.9 Non-ischemic cardiomyopathy I42.8 Type 2 diabetes mellitus with stage 2 chronic kidney disease, with long-term current use of insulin E11.22; N18.2; Z79.4 Diabetes mellitus type: type 2 Diabetes mellitus longterm insulin use: with ocean transportation intermediary use Diabetes mellitus complication status: with kidney complications Diabetes mellitus complication detail: with chronic kidney disease Chronic kidney disease stage: stage 2 (mild) Lactic acidosis E87.20 Hypokalemia E87.6 COPD with acute exacerbation J44.1 NSTEMI (non-ST elevated myocardial infarction) I21.4 Acute hypoxic respiratory failure J96.01 Pneumonia J18.9 Acute renal failure N17.9
[2024-03-31 16:47] LABS: Anion Gap 16.3 (5-19); Calcium 9.5 mg/dL (8.5-10.5); Carbon Dioxide 33 mmol/L (22-29); Chloride 95 mmol/L (98-107); Creatinine Clr Calc Pharmacy 26.4012; Glucose 197 mg/dL (65-115); Osmolality Calculated 321 mOsm/kg (285-295); Potassium 4.3 mmol/L (3.5-5.1); Sodium 140 mmol/L (136-145)
[2024-03-31 16:48] LABS: Blood Urea Nitrogen 83 mg/dL (8-23)
[2024-03-31] MEDS: enoxaparin 100 mg/mL Syringe 70 MG SUBCUT (20:07)
[2024-03-31] MEDS: atorvastatin 40 mg Tablet PO (20:08)
[2024-03-31] MEDS: tamsulosin 0.4 mg Capsule PO (20:08)
[2024-04-01] VITALS (46 sets, daily range): BP systolic 83–126; BP diastolic 46–76; PULSE 65–108; RESP 13–22; TEMP 36.4–36.5; O2SAT 92–100
[2024-04-01 03:53] LABS: Basophils % 0.1 %; Hematocrit 30.7 % (37-53); Lymphocytes # 1.1 10^3/uL (0.8-4.8); Lymphocytes % 10.1 %; Mean Corpuscular HGB Conc 30.6 g/dL (30-55); Mean Corpuscular Hemoglobin 27.2 pg (27-33); Mean Corpuscular Volume 88.7 fl (82-101); Mean Platelet Volume 9.4 fL (7.4-10.4); Monocytes # 1.1 10^3/uL (0.2-0.9); Monocytes % 10.2 %; Neutrophils % 78.5 %; Nucleated Red Blood Cells # 0.1 /100WBC; Nucleated Red Blood Cells % 0.5 %; Platelet Count 209 10^3/cmm (157-399); Red Blood Count 3.46 10^6/uL (3.85-5.65); Red Cell Distribution Width 16.2 % (12.1-15.1); White Blood Count 10.58 10^3/uL (3.29-11.43)
[2024-04-01 04:05] LABS: Alanine Aminotransferase 19 U/L (0-41); Albumin Level 3.4 g/dL (3.5-5.2); Alkaline Phosphatase 82 U/L (40-130); Anion Gap 17.3 (5-19); Aspartate Amino Transferase 17 U/L (0-40); Calcium 9.4 mg/dL (8.5-10.5); Carbon Dioxide 31 mmol/L (22-29); Chloride 99 mmol/L (98-107); Creatinine Clr Calc Pharmacy 28.9156; Globulin 1.9 g/dL (1.3-4.6); Glucose 96 mg/dL (65-115); Magnesium 1.9 mg/dL (1.7-2.3); Osmolality Calculated 325 mOsm/kg (285-295); Potassium 3.3 mmol/L (3.5-5.1); Sodium 144 mmol/L (136-145); Total Bilirubin 0.3 mg/dL (0.15-1.2); Total Protein 5.3 g/dL (6.6-8.7)
[2024-04-01 04:15] LABS: NT Pro B Type Natriuretic Pept 7931 pg/mL (0-450); Procalcitonin 0.21 ng/mL (0-0.5)
[2024-04-01 04:34] LABS: Blood Urea Nitrogen 90 mg/dL (8-23)
[2024-04-01] MEDS: midodrine 5 mg TABLET 10 MG PO ×4 (05:34→23:18)
[2024-04-01] MEDS: roflumilast 500 mcg Tablet PO (05:34)
[2024-04-01 05:56] LABS: Glucose Point of Care 289 mg/dL (70-110)
[2024-04-01 07:29] LABS: Glucose Point of Care 254 mg/dL (70-110)
[2024-04-01 07:30] LABS: Glucose Point of Care 117 mg/dL (70-110)
[2024-04-01] MEDS: budesonide 0.5 mg/2 mL Neb INHALATION ×2 (08:28→20:19)
[2024-04-01] MEDS: ipratropium-albuterol 3 mL Neb INHALATION ×4 (08:28→20:19)
[2024-04-01] MEDS: potassium chloride ER 20 mEq Tablet PO (08:54)
[2024-04-01] MEDS: pantoprazole DR 40 mg Tablet PO ×2 (08:55→17:30)
[2024-04-01] MEDS: sucralfate 1 gm Tablet PO ×2 (08:55→17:30)
[2024-04-01] MEDS: finasteride 5 mg Tablet PO (08:55)
[2024-04-01] MEDS: aspirin 81 mg EC Tablet PO (08:55)
[2024-04-01] MEDS: potassium chloride ER 20 mEq Tablet 40 MEQ PO (08:55)
[2024-04-01] MEDS: predniSONE 20 mg Tablet 40 MG PO (08:55)
[2024-04-01] MEDS: amiodarone 200 mg Tablet PO (08:55)
[2024-04-01] MEDS: predniSONE 5 mg Tablet PO (08:57)
[2024-04-01] MEDS: FUROsemide 10 mg/mL SDV 4mL 40 MG IVP (08:57)
[2024-04-01] MEDS: insulin lispro 100 unit/1 mL SUBCUT ×3 (11:38→20:57)
[2024-04-01 11:42] LABS: Ferritin 93 ng/mL (30-400); Iron 45 ug/dL (59-158)
[2024-04-01 12:57] LABS: Glucose Point of Care 169 mg/dL (70-110)
--- NOTE | 2024-04-01 12:59 | PC.NURSE ---
transfer to room 106
--- NOTE | 2024-04-01 14:54 | PM.PN ---
Subjective Subjective: Patient was seen this morning, he was seen ambulating with physical therapy around the ICU, he remains off pressors, does report shortness of breath with exertion, weakness, but improving day by day, Vitals/I&O/Wt Last Vital Signs Temp 97.6 F 04/01/24 04:24 Pulse 83 04/01/24 13:54 Resp 21 H 04/01/24 13:54 BP 110/62 04/01/24 13:54 Pulse Ox 97 04/01/24 13:54 O2 Del Method Nasal Cannula 04/01/24 12:07 O2 Flow Rate 4 04/01/24 12:07 03/31/24 04/01/24 04/01/24 22:59 06:59 14:59 Intake Total 120 / 527.50 600 / 1127.50 420 / 420 Output Total 900 / 1250 625 / 1875 1300 / 1300 Balance -780 / -722.50 -25 / -747.50 -880 / -880 Physical Exam Const: COMMON NORMALS: no acute distress and patient oriented x3 Resp: COMMON NORMALS: normal respiratory effort, No retractions, No use of accessory muscles and clear to auscultation bilaterally AUSCULTATION: clear to auscultation bilaterally Cardio: COMMON NORMALS: regular rate, regular rhythm, S1 normal heart sound present and S2 normal heart sound present RATE: regular rate RHYTHM: regular rhythm HEART SOUNDS: S1 normal heart sound present and S2 normal heart sound present GI: COMMON NORMALS: Normal to inspection, nondistended, normoactive bowel sounds present and non-tender Extremity: COMMON NORMALS: no pedal edema Neuro: COMMON NORMALS: patient oriented x3 Psych: COMMON NORMALS: mental status grossly normal Urinary Catheter Management: Mesa Latex: Cath Placed During This Visit: yes Reason for Continuing Indwelling Catheter: Accurate Measurement of Urinary Output in Critically Ill Patients Urinary Catheter Date of Insertion: 03/24/24 Urinary Catheter Time of Insertion: 18:00 Data 04/01/24 03:15 04/01/24 03:15 Micro: Microbiology 03/28/24 09:53 E. 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 Diabetes mellitus complication status: with kidney complications Diabetes mellitus complication detail: with chronic kidney disease Chronic kidney disease stage: stage 2 (mild) Qualified Code(s): E11.22 - Type 2 diabetes mellitus with diabetic chronic kidney disease; N18.2 - Chronic kidney disease, stage 2 (mild); 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.4 - supervisor 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 (current) use of insulin (4) Lactic acidosis: (5) Hypokalemia: (6) COPD with acute exacerbation: (7) NSTEMI (non-ST elevated myocardial infarction): (8) Acute hypoxic respiratory failure: (9) Pneumonia: (10) Acute renal failure: Plan Acute hypoxic respiratory failure -Multifactorial - pneumonia, Stenotrophomonas maltophilia -COPD exacerbation -CHF exacerbation Plan -Continue broad-spectrum antibiotic therapy -De-escalate antibiotics to Levaquin -De-escalate to prednisone -DuoNeb -Budesonide -Will de-escalate Lasix in the evening -Follow blood cultures, so far no growth -Follow respiratory viral panel within normal limits -Sputum culture showing gram-negative rods -Full code -Lovenox for DVT prophylaxis Shock -Multifactorial -Component of sepsis -Component of cardiogenic -Monitor in ICU -Maintain MAP in 65, will require Levophed, currently at 4, wean off Levophed ? PICC line Cardiac echo CONCLUSIONS Diffuse hypokinesis of the left ventricule with an ejection fraction of 42%. Mildly dilated LV cavity. Mildly increased left atrial size. Thickened mitral valve. Mild-moderate mitral valve regurgitation. Estimated pulmonary artery peak systolic pressur is e 23 mmHg. Trace tricuspid valve regurgitation. Minimally thickened aortic valve.trace aortic valve regurgitation. 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 Estimated pulmonary artery peak systolic pressur is e 23 mmHg. Trace tricuspid valve regurgitation. There is no pericardial effusion. There are no intracardiac masses. Compared to the study from 02/25/2024, LV ejection fraction appears to have improved from 30% to 40% Sepsis -Sepsis features met given acute hypoxic respiratory failure, tachypnea, tachycardia, elevated lactic acid Acute renal failure, creatinine up to 1.9 -Multifactorial -Component of sepsis -Possible cardiorenal syndrome -Monitor urine output, monitor creatinine -Place Mesa catheter Hypokalemia, receiving IV and p.o. replacement emergency room Concerns for urinary tract infection -UA shows evidence of UTI -Renal ultrasound US/ renal BI* [id number] IMPRESSION: No acute findings. -Antibiotics as above NSTEMI -No active chest pain but has been complaining of chest pain -Serial EKGs, start troponins, telemetry monitoring -Aspirin, statin -Therapeutic Lovenox CONCLUSIONS Diffuse hypokinesis of the left ventricule with an ejection fraction of 42%. Mildly dilated LV cavity. Mildly increased left atrial size. Thickened mitral valve. Mild-moderate mitral valve regurgitation. Estimated pulmonary artery peak systolic pressur is e 23 mmHg. Trace tricuspid valve regurgitation. Minimally thickened aortic valve.trace aortic valve regurgitation. 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 Estimated pulmonary artery peak systolic pressur is e 23 mmHg. Trace tricuspid valve regurgitation. There is no pericardial effusion. There are no intracardiac masses. Compared to the study from 02/25/2024, LV ejection fraction appears to have improved from 30% to 40% Black tarry stool, Hemoccult positive stool, hemoglobin has been stable no recurrent black tarry stools -Protonix, Carafate -Monitor hemoglobin -Therapeutic Lovenox currently on hold as BUN is elevated Plan for today as patient's BUN continues to elevate there was concern for GI bleed I would hold his Lovenox for today, replace potassium, give 1 dose IV Lasix, continue p.o. Levaquin, moved to cardiac stepdown unit continue PT OT, continue to monitor closely Attestations Medical Necessity Statement*: Patient requires hospitalization for CHF exacerbation, hypotension, shock, elevated BUN concerns for slow GI bleed Diagnoses Chest pain R07.9 Non-ischemic cardiomyopathy I42.8 Type 2 diabetes mellitus with stage 2 chronic kidney disease, with long-term current use of insulin E11.22; N18.2; Z79.4 Diabetes mellitus type: type 2 Diabetes mellitus nursing home insulin use: with nursing home use Diabetes mellitus complication status: with kidney complications Diabetes mellitus complication detail: with chronic kidney disease Chronic kidney disease stage: stage 2 (mild) Lactic acidosis E87.20 Hypokalemia E87.6 COPD with acute exacerbation J44.1 NSTEMI (non-ST elevated myocardial infarction) I21.4 Acute hypoxic respiratory failure J96.01 Pneumonia J18.9 Acute renal failure N17.9
[2024-04-01 17:19] LABS: Glucose Point of Care 300 mg/dL (70-110)
[2024-04-01] MEDS: levoFLOXacin 750 mg Tablet PO (17:30)
[2024-04-01 20:32] LABS: Glucose Point of Care 277 mg/dL (70-110)
[2024-04-01] MEDS: tamsulosin 0.4 mg Capsule PO (20:56)
[2024-04-01] MEDS: atorvastatin 40 mg Tablet PO (20:57)
[2024-04-02] VITALS (27 sets, daily range): BP systolic 97–119; BP diastolic 45–64; PULSE 63–108; RESP 14–22; TEMP 36.5–36.7; O2SAT 90–99
[2024-04-02 03:31] LABS: Basophils % 0.1 %; Hematocrit 28.8 % (37-53); Lymphocytes # 0.7 10^3/uL (0.8-4.8); Lymphocytes % 7.3 %; Mean Corpuscular HGB Conc 30.9 g/dL (30-55); Mean Corpuscular Hemoglobin 27.1 pg (27-33); Mean Corpuscular Volume 87.5 fl (82-101); Mean Platelet Volume 9.5 fL (7.4-10.4); Monocytes % 10.3 %; Neutrophils # 7.57 10^3/uL (1.8-7.7); Neutrophils % 81.7 %; Nucleated Red Blood Cells % 0 %; Platelet Count 217 10^3/cmm (157-399); Red Blood Count 3.29 10^6/uL (3.85-5.65); Red Cell Distribution Width 16.2 % (12.1-15.1); White Blood Count 9.28 10^3/uL (3.29-11.43)
[2024-04-02 03:52] LABS: Alanine Aminotransferase 20 U/L (0-41); Albumin Level 3.3 g/dL (3.5-5.2); Alkaline Phosphatase 87 U/L (40-130); Anion Gap 13.6 (5-19); Aspartate Amino Transferase 18 U/L (0-40); Calcium 9.3 mg/dL (8.5-10.5); Carbon Dioxide 33 mmol/L (22-29); Chloride 97 mmol/L (98-107); Creatinine Clr Calc Pharmacy 33.7349; Globulin 1.8 g/dL (1.3-4.6); Glucose 141 mg/dL (65-115); Osmolality Calculated 317 mOsm/kg (285-295); Phosphorus 3.3 mg/dL (2.5-4.5); Potassium 3.6 mmol/L (3.5-5.1); Sodium 140 mmol/L (136-145); Total Bilirubin 0.3 mg/dL (0.15-1.2); Total Protein 5.1 g/dL (6.6-8.7)
[2024-04-02 04:11] LABS: Blood Urea Nitrogen 81 mg/dL (8-23)
[2024-04-02 04:26] LABS: NT Pro B Type Natriuretic Pept 9206 pg/mL (0-450); Procalcitonin 0.17 ng/mL (0-0.5)
[2024-04-02] MEDS: midodrine 5 mg TABLET 10 MG PO ×4 (05:42→23:43)
[2024-04-02] MEDS: roflumilast 500 mcg Tablet PO (05:42)
[2024-04-02 06:28] LABS: Glucose Point of Care 174 mg/dL (70-110)
[2024-04-02] MEDS: budesonide 0.5 mg/2 mL Neb INHALATION ×2 (08:30→20:24)
[2024-04-02] MEDS: ipratropium-albuterol 3 mL Neb INHALATION ×4 (08:30→20:24)
[2024-04-02] MEDS: sucralfate 1 gm Tablet PO ×2 (09:32→17:54)
[2024-04-02] MEDS: amiodarone 200 mg Tablet PO (09:32)
[2024-04-02] MEDS: potassium chloride ER 20 mEq Tablet PO ×2 (09:32→09:38)
[2024-04-02] MEDS: predniSONE 5 mg Tablet PO (09:32)
[2024-04-02] MEDS: aspirin 81 mg EC Tablet PO (09:32)
[2024-04-02] MEDS: finasteride 5 mg Tablet PO (09:32)
[2024-04-02] MEDS: predniSONE 20 mg Tablet 40 MG PO (09:32)
[2024-04-02] MEDS: potassium chloride ER 20 mEq Tablet 40 MEQ PO (09:33)
[2024-04-02] MEDS: pantoprazole DR 40 mg Tablet PO ×2 (09:33→17:54)
[2024-04-02] MEDS: FUROsemide 10 mg/mL SDV 4mL 40 MG IVP (09:38)
[2024-04-02] MEDS: metOLazone 5 MG Tablet PO (09:38)
[2024-04-02] MEDS: insulin lispro 100 unit/1 mL SUBCUT ×2 (09:39→17:54)
[2024-04-02 11:12] LABS: Glucose Point of Care 108 mg/dL (70-110)
--- NOTE | 2024-04-02 14:30 | P.PN_ITS ---
Subjective 2 Subjective: Patient was seen this morning, denies any fevers, no chills, no cough, no lightheadedness, no dizziness, we discussed his elevated uremia, with hemoglobin up to 8.9, is suspicious for slow GI bleed, given Hemoccult positive stool, continue to hold anticoagulant therapy, no nausea, no vomiting, will continue to monitor closely, he is diuresing well continue to monitor monitor his breathing, continue PT OT plan on discharging next 2448 hrs., he is agreeable Vitals/I&O/Wt Last Vital Signs Temp 98.1 F 04/02/24 11:00 Pulse 83 04/02/24 11:37 Resp 18 04/02/24 11:37 BP 116/57 04/02/24 11:00 Pulse Ox 95 04/02/24 11:37 O2 Del Method Nasal Cannula 04/02/24 11:37 O2 Flow Rate 4 04/02/24 11:37 04/01/24 04/02/24 04/02/24 22:59 06:59 14:59 Intake Total 250 / 670 400 / 1070 480 / 480 Output Total 1000 / 2300 600 / 2900 1100 / 1100 Balance -750 / -1630 -200 / -1830 -620 / -620 Weight last 48 hrs Weight 74.117 kg Weight 74.117 kg Physical Exam 2 Const: COMMON NORMALS: no acute distress and patient oriented x3 Resp: COMMON NORMALS: normal respiratory effort, No retractions, No use of accessory muscles and clear to auscultation bilaterally AUSCULTATION: clear to auscultation bilaterally Cardio: COMMON NORMALS: regular rate, regular rhythm, S1 normal heart sound present and S2 normal heart sound present RATE: regular rate RHYTHM: r egular rhythm HEART SOUNDS: S1 normal heart sound present and S2 normal heart sound present GI: COMMON NORMALS: Normal to inspection, nondistended, normoactive bowel sounds present and non-tender Extremity: COMMON NORMALS: no pedal edema Neuro: COMMON NORMALS: patient oriented x3 Psych: COMMON NORMALS: mental status grossly normal Urinary Catheter Management: Mesa Latex: Cath Placed During This Visit: yes Reason for Continuing Indwelling Catheter: Accurate Measurement of Urinary Output in Critically Ill Patients Urinary Catheter Date of Insertion: 03/24/24 Urinary Catheter Time of Insertion: 18:00 Data 04/02/24 02:38 04/02/24 02:38 Micro: Microbiology 03/28/24 09:53 E. 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 helper use Diabetes mellitus complication status: with kidney complications Diabetes mellitus complication detail: with chronic kidney disease Chronic kidney disease stage: stage 2 (mild) Qualified Code(s): E11.22 - Type 2 diabetes mellitus with diabetic chronic kidney disease; N18.2 - Chronic kidney disease, stage 2 (mild); 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 (4) Lactic acidosis: (5) Hypokalemia: (6) COPD with acute exacerbation: (7) NSTEMI (non-ST elevated myocardial infarction): (8) Acute hypoxic respiratory failure: (9) Pneumonia: (10) Acute renal failure: (11) GI bleed: Plan Acute hypoxic respiratory failure -Multifactorial - pneumonia, Stenotrophomonas maltophilia -COPD exacerbation -CHF exacerbation, -9 L so far Plan -Continue broad-spectrum antibiotic therapy -De-escalate antibiotics to Levaquin -De-escalate to prednisone -DuoNeb -Budesonide -Will de-escalate Lasix in the evening -Follow blood cultures, so far no growth -Follow respiratory viral panel within normal limits -Full code -Lovenox for DVT prophylaxis Shock, resolving -Multifactorial -Component of sepsis -Component of cardiogenic -Monitor in ICU -Off Levophed ? PICC line Cardiac echo CONCLUSIONS Diffuse hypokinesis of the left ventricule with an ejection fraction of 42%. Mildly dilated LV cavity. Mildly increased left atrial size. Thickened mitral valve. Mild-moderate mitral valve regurgitation. Estimated pulmonary artery peak systolic pressur is e 23 mmHg. Trace tricuspid valve regurgitation. Minimally thickened aortic valve.trace aortic valve regurgitation. 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 Estimated pulmonary artery peak systolic pressur is e 23 mmHg. Trace tricuspid valve regurgitation. There is no pericardial effusion. There are no intracardiac masses. Compared to the study from 02/25/2024, LV ejection fraction appears to have improved from 30% to 40% Sepsis, resolving -Sepsis features met given acute hypoxic respiratory failure, tachypnea, tachycardia, elevated lactic acid Acute renal failure, creatinine up to 1.9 -Multifactorial -Component of sepsis -Possible cardiorenal syndrome -Monitor urine output, monitor creatinine -Place Mesa catheter Hypokalemia, receiving IV and p.o. replacement emergency room Concerns for urinary tract infection, resolved -UA shows evidence of UTI -Renal ultrasound US/US renal BI* [id number] IMPRESSION: No acute findings. -Antibiotics as above NSTEMI -No active chest pain but has been complaining of chest pain -Serial EKGs, start troponins, telemetry monitoring -Aspirin, statin -Therapeutic Lovenox CONCLUSIONS Diffuse hypokinesis of the left ventricule with an ejection fraction of 42%. Mildly dilated LV cavity. Mildly increased left atrial size. Thickened mitral valve. Mild-moderate mitral valve regurgitation. Estimated pulmonary artery peak systolic pressur is e 23 mmHg. Trace tricuspid valve regurgitation. Minimally thickened aortic valve.trace aortic valve regurgitation. 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 Estimated pulmonary artery peak systolic pressur is e 23 mmHg. Trace tricuspid valve regurgitation. There is no pericardial effusion. There are no intracardiac masses. Compared to the study from 02/25/2024, LV ejection fraction appears to have improved from 30% to 40% Acute anemia with Black tarry stool, Hemoccult positive stool, hemoglobin has been stable no recurrent black tarry stools, with uremia -Concerning for slow GI bleed -Iron low at 93, iron at 45 -Protonix, Carafate -Monitor hemoglobin -Therapeutic Lovenox currently on hold as BUN is elevated Plan for today IV Lasix, continue to diurese, PT OT, monitor hemoglobin this afternoon, monitor clinical status, Attestations 2 Medical Necessity Statement*: Patient requires hospitalization for acute anemia, concerning for slow GI bleed, shock, CHF, fluid overload, pneumonia, NSTEMI Diagnoses Chest pain R07.9 Non-ischemic cardiomyopathy I42.8 Type 2 diabetes mellitus with stage 2 chronic kidney disease, with long-term current use of insulin E11.22; N18.2; Z79.4 Diabetes mellitus type: type 2 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
[2024-04-02 16:38] LABS: Glucose Point of Care 383 mg/dL (70-110)
[2024-04-02 18:19] LABS: Hematocrit 21.9 % (37-53)
--- NOTE | 2024-04-02 19:24 | PC.NURSE ---
picc line dressing changed with central line dressing tray kit at 1922 on 04/02/24.
[2024-04-02 21:12] LABS: Glucose Point of Care 122 mg/dL (70-110)
[2024-04-02] MEDS: tamsulosin 0.4 mg Capsule PO (21:58)
[2024-04-02] MEDS: atorvastatin 40 mg Tablet PO (21:58)
[2024-04-03] VITALS (21 sets, daily range): BP systolic 90–128; BP diastolic 50–72; PULSE 61–82; RESP 14–24; TEMP 36.3–37; O2SAT 99–100
[2024-04-03] MEDS: sodium chloride 0.9% 100 mL Bag 50 ML IV (00:56)
[2024-04-03] MEDS: roflumilast 500 mcg Tablet PO (05:21)
[2024-04-03] MEDS: midodrine 5 mg TABLET 10 MG PO ×4 (05:21→22:56)
[2024-04-03 06:38] LABS: Glucose Point of Care 141 mg/dL (70-110)
[2024-04-03] MEDS: ipratropium-albuterol 3 mL Neb INHALATION ×4 (07:55→19:59)
[2024-04-03] MEDS: budesonide 0.5 mg/2 mL Neb INHALATION ×2 (07:55→19:59)
[2024-04-03] MEDS: sucralfate 1 gm Tablet PO ×2 (08:46→17:24)
[2024-04-03] MEDS: aspirin 81 mg EC Tablet PO (08:46)
[2024-04-03] MEDS: potassium chloride ER 20 mEq Tablet 40 MEQ PO (08:46)
[2024-04-03] MEDS: finasteride 5 mg Tablet PO (08:46)
[2024-04-03] MEDS: amiodarone 200 mg Tablet PO (08:46)
[2024-04-03] MEDS: pantoprazole DR 40 mg Tablet PO ×2 (08:47→17:24)
[2024-04-03 08:48] LABS: Basophils % 0.1 %; Hematocrit 32.4 % (37-53); Lymphocytes # 1.1 10^3/uL (0.8-4.8); Lymphocytes % 13.1 %; Mean Corpuscular HGB Conc 31.8 g/dL (30-55); Mean Corpuscular Hemoglobin 27.4 pg (27-33); Mean Corpuscular Volume 86.2 fl (82-101); Mean Platelet Volume 9.2 fL (7.4-10.4); Monocytes # 0.8 10^3/uL (0.2-0.9); Monocytes % 9.3 %; Neutrophils # 6.72 10^3/uL (1.8-7.7); Nucleated Red Blood Cells % 0 %; Platelet Count 193 10^3/cmm (157-399); Red Blood Count 3.76 10^6/uL (3.85-5.65); Red Cell Distribution Width 15.9 % (12.1-15.1); White Blood Count 8.72 10^3/uL (3.29-11.43)
[2024-04-03] MEDS: insulin lispro 100 unit/1 mL SUBCUT ×2 (08:48→17:22)
[2024-04-03 09:11] LABS: Anion Gap 14.5 (5-19); Blood Urea Nitrogen 69 mg/dL (8-23); Calcium 9.3 mg/dL (8.5-10.5); Carbon Dioxide 30 mmol/L (22-29); Chloride 97 mmol/L (98-107); Creatinine Clr Calc Pharmacy 37.9473; Glucose 111 mg/dL (65-115); NT Pro B Type Natriuretic Pept 8991 pg/mL (0-450); Osmolality Calculated 307 mOsm/kg (285-295); Potassium 3.5 mmol/L (3.5-5.1); Sodium 138 mmol/L (136-145)
[2024-04-03] MEDS: predniSONE 5 mg Tablet PO (09:12)
[2024-04-03] MEDS: predniSONE 20 mg Tablet PO (09:14)
--- NOTE | 2024-04-03 10:47 | PC.NURSE ---
Dr Resendez asked nursing staff in the hallway to take patients durham catheter out today. Order placed.
--- NOTE | 2024-04-03 11:37 | PC.SOCIAL ---
IMM Updated Updated pt on IMM. No questions voiced. Provided pt a copy. Initialed, dated, & timed copy in chart.
[2024-04-03 11:43] LABS: Glucose Point of Care 98 mg/dL (70-110)
--- NOTE | 2024-04-03 14:00 | PM.PN ---
Subjective Subjective: Patient was seen this morning, denies any fevers, no chills, no cough does report his shortness of breath is improving, no lightheaded, dizziness, no reported bloody black stools overnight discussed his low hemoglobin status post 1 unit PRBC will watch his hemoglobin today, discussed the risk and benefits of holding anticoagulation therapy, he voiced understanding, all questions answered, agreed to proceed Vitals/I&O/Wt Last Vital Signs Temp 97.8 F 04/03/24 11:15 Pulse 82 04/03/24 11:16 Resp 19 H 04/03/24 11:15 BP 115/63 04/03/24 11:15 Pulse Ox 100 04/03/24 11:15 O2 Del Method Nasal Cannula 04/03/24 11:15 O2 Flow Rate 4 04/03/24 11:09 04/02/24 04/03/24 04/03/24 22:59 06:59 14:59 Intake Total 350 / 830 720 / 720 Output Total 950 / 2050 525 / 2575 350 / 350 Balance -950 / -1570 -175 / -1745 370 / 370 Weight last 48 hrs Weight 75.478 kg Weight 74.117 kg Weight 74.117 kg Physical Exam Const: COMMON NORMALS: no acute distress and patient oriented x3 Resp: COMMON NORMALS: normal respiratory effort, No retractions, No use of accessory muscles and clear to auscultation bilaterally AUSCULTATION: clear to auscultation bilaterally Cardio: COMMON NORMALS: regular rate, regular rhythm, S1 normal heart sound present and S2 normal heart sound present RATE: regular rate RHYTHM: regular rhythm HEART SOUNDS: S1 normal heart sound present and S2 normal heart sound present GI: COMMON NORMALS: Normal to inspection, nondistended, normoactive bowel sounds present and non-tender Extremity: COMMON NORMALS: no pedal edema Neuro: COMMON NORMALS: patient oriented x3 Psych: COMMON NORMALS: mental status grossly normal Urinary Catheter Management: Mesa Latex: Cath Placed During This Visit: yes, but has since been removed by the nurse Reason for Continuing Indwelling Catheter: Accurate Measurement of Urinary Output in Critically Ill Patients Urinary Catheter Date of Insertion: 03/24/24 Urinary Catheter Time of Insertion: 18:00 Date Urinary Catheter Removed: 04/03/24 Time Urinary Catheter Discontinued: 10:57 Data 04/03/24 08:35 04/03/24 08:35 A&P Assessment and plan (1) Chest pain: (2) Non-ischemic cardiomyopathy: (3) Diabetes: Qualifiers: Diabetes mellitus type: type 2 Diabetes mellitus 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 Diabetes mellitus complication status: with kidney complications Diabetes mellitus complication detail: with chronic kidney disease Chronic kidney disease stage: stage 2 (mild) Qualified Code(s): E11.22 - Type 2 diabetes mellitus with diabetic chronic kidney disease; N18.2 - Chronic kidney disease, stage 2 (mild); Z79.4 - senior care (current) use of insulin (4) Lactic acidosis: (5) Hypokalemia: (6) COPD with acute exacerbation: (7) NSTEMI (non-ST elevated myocardial infarction): (8) Acute hypoxic respiratory failure: (9) Pneumonia: (10) Acute renal failure: (11) GI bleed: Plan Acute hypoxic respiratory failure -Multifactorial - pneumonia, Stenotrophomonas maltophilia -COPD exacerbation -CHF exacerbation, -10 L so far Plan -Continue broad-spectrum antibiotic therapy -De-escalate antibiotics to Levaquin -De-escalate to prednisone -DuoNeb -Budesonide -Lasix 40 mg twice daily -Follow blood cultures, so far no growth -Follow respiratory viral panel within normal limits -Full code -Lovenox for DVT prophylaxis Shock, resolved -Multifactorial -Component of sepsis -Component of cardiogenic -Monitor in ICU -Off Levophed ? PICC line Cardiac echo CONCLUSIONS Diffuse hypokinesis of the left ventricule with an ejection fraction of 42%. Mildly dilated LV cavity. Mildly increased left atrial size. Thickened mitral valve. Mild-moderate mitral valve regurgitation. Estimated pulmonary artery peak systolic pressur is e 23 mmHg. Trace tricuspid valve regurgitation. Minimally thickened aortic valve.trace aortic valve regurgitation. 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 Estimated pulmonary artery peak systolic pressur is e 23 mmHg. Trace tricuspid valve regurgitation. There is no pericardial effusion. There are no intracardiac masses. Compared to the study from 02/25/2024, LV ejection fraction appears to have improved from 30% to 40% Sepsis, resolved -Sepsis features met given acute hypoxic respiratory failure, tachypnea, tachycardia, elevated lactic acid Acute renal failure, creatinine up to 0.6 -Multifactorial -Component of sepsis -Possible cardiorenal syndrome -Monitor urine output, monitor creatinine -Place Mesa catheter Hypokalemia, receiving IV and p.o. replacement emergency room Concerns for urinary tract infection, resolved -UA shows evidence of UTI -Renal ultrasound US/ renal BI* [id number] IMPRESSION: No acute findings. -Antibiotics as above NSTEMI -No active chest pain but has been complaining of chest pain -Serial EKGs, start troponins, telemetry monitoring -Aspirin, statin -Therapeutic Lovenox CONCLUSIONS Diffuse hypokinesis of the left ventricule with an ejection fraction of 42%. Mildly dilated LV cavity. Mildly increased left atrial size. Thickened mitral valve. Mild-moderate mitral valve regurgitation. Estimated pulmonary artery peak systolic pressur is e 23 mmHg. Trace tricuspid valve regurgitation. Minimally thickened aortic valve.trace aortic valve regurgitation. 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 Estimated pulmonary artery peak systolic pressur is e 23 mmHg. Trace tricuspid valve regurgitation. There is no pericardial effusion. There are no intracardiac masses. Compared to the study from 02/25/2024, LV ejection fraction appears to have improved from 30% to 40% Acute anemia with Black tarry stool, Hemoccult positive stool, hemoglobin has been stable no recurrent black tarry stools, with uremia -Concerning for slow GI bleed -Iron low at 93, iron at 45 -Hemoglobin down to 6.6 -Status post unit PRBC -Protonix, Carafate -Monitor hemoglobin -Therapeutic Lovenox currently on hold due to acute anemia Plan for today monitor hemoglobin status post 1 unit PRBC, hold therapeutic Lovenox, continue p.o. Lasix, remove Mesa catheter Attestations Medical Necessity Statement*: Patient requires hospitalization for acute anemia, concerns for slow GI bleed, holding therapeutic Lovenox, transfuse 1 unit PRBC monitor hemoglobin Diagnoses Chest pain R07.9 Non-ischemic cardiomyopathy I42.8 Type 2 diabetes mellitus with stage 2 chronic kidney disease, with long-term current use of insulin E11.22; N18.2; Z79.4 Diabetes mellitus type: type 2 Diabetes mellitus retirement insulin use: with retirement use Diabetes mellitus complication status: with kidney complications Diabetes mellitus complication detail: with chronic kidney disease Chronic kidney disease stage: stage 2 (mild) Lactic acidosis E87.20 Hypokalemia E87.6 COPD with acute exacerbation J44.1 NSTEMI (non-ST elevated myocardial infarction) I21.4 Acute hypoxic respiratory failure J96.01 Pneumonia J18.9 Acute renal failure N17.9 GI bleed K92.2
[2024-04-03] MEDS: FUROsemide 40 mg Tablet PO (15:46)
[2024-04-03] MEDS: potassium chloride ER 20 mEq Tablet PO (15:47)
[2024-04-03 16:43] LABS: Glucose Point of Care 264 mg/dL (70-110)
[2024-04-03] MEDS: levoFLOXacin 750 mg Tablet PO (17:24)
[2024-04-03 19:09] LABS: Hematocrit 32.7 % (37-53)
[2024-04-03] MEDS: atorvastatin 40 mg Tablet PO (20:39)
[2024-04-03] MEDS: tamsulosin 0.4 mg Capsule PO (20:39)
[2024-04-03 21:18] LABS: Glucose Point of Care 125 mg/dL (70-110)
[2024-04-03 21:18] LABS: Glucose Point of Care 128 mg/dL (70-110)
[2024-04-04] VITALS (9 sets, daily range): BP systolic 99–117; BP diastolic 41–60; PULSE 60–73; RESP 14–18; TEMP 36.1–36.6; O2SAT 96–100
[2024-04-04 02:59] LABS: Hematocrit 32.5 % (37-53); Lymphocytes # 0.9 10^3/uL (0.8-4.8); Lymphocytes % 10.3 %; Mean Corpuscular HGB Conc 31.4 g/dL (30-55); Mean Corpuscular Hemoglobin 27.1 pg (27-33); Mean Corpuscular Volume 86.4 fl (82-101); Mean Platelet Volume 9.6 fL (7.4-10.4); Monocytes # 0.8 10^3/uL (0.2-0.9); Monocytes % 9.5 %; Neutrophils # 7.05 10^3/uL (1.8-7.7); Neutrophils % 79.6 %; Nucleated Red Blood Cells % 0 %; Platelet Count 217 10^3/cmm (157-399); Red Blood Count 3.76 10^6/uL (3.85-5.65); White Blood Count 8.85 10^3/uL (3.29-11.43)
[2024-04-04 03:30] LABS: Blood Urea Nitrogen 64 mg/dL (8-23); Calcium 9.2 mg/dL (8.5-10.5); Carbon Dioxide 32 mmol/L (22-29); Chloride 99 mmol/L (98-107); Creatinine Clr Calc Pharmacy 37.9473; Glucose 112 mg/dL (65-115); NT Pro B Type Natriuretic Pept 12470 pg/mL (0-450); Osmolality Calculated 307 mOsm/kg (285-295); Sodium 139 mmol/L (136-145)
[2024-04-04 03:31] LABS: Anion Gap 12.5 (5-19); Potassium 4.5 mmol/L (3.5-5.1)
[2024-04-04] MEDS: midodrine 5 mg TABLET 10 MG PO ×2 (05:02→12:09)
[2024-04-04] MEDS: roflumilast 500 mcg Tablet PO (05:02)
[2024-04-04 06:25] LABS: Glucose Point of Care 105 mg/dL (70-110)
[2024-04-04] MEDS: budesonide 0.5 mg/2 mL Neb INHALATION (08:00)
[2024-04-04] MEDS: ipratropium-albuterol 3 mL Neb INHALATION ×3 (08:00→15:03)
[2024-04-04] MEDS: predniSONE 20 mg Tablet PO (08:43)
[2024-04-04] MEDS: finasteride 5 mg Tablet PO (08:43)
[2024-04-04] MEDS: aspirin 81 mg EC Tablet PO (08:43)
[2024-04-04] MEDS: FUROsemide 40 mg Tablet PO (08:44)
[2024-04-04] MEDS: sucralfate 1 gm Tablet PO (08:44)
[2024-04-04] MEDS: amiodarone 200 mg Tablet PO (08:44)
[2024-04-04] MEDS: potassium chloride ER 20 mEq Tablet 40 MEQ PO (08:44)
[2024-04-04] MEDS: predniSONE 5 mg Tablet PO (08:44)
[2024-04-04] MEDS: pantoprazole DR 40 mg Tablet PO (08:44)
[2024-04-04 11:31] LABS: Glucose Point of Care 194 mg/dL (70-110)
[2024-04-04] MEDS: insulin lispro 100 unit/1 mL SUBCUT (12:09)
--- NOTE | 2024-04-04 12:32 | PM.DCS ---
Discharge Providers Date of Admission: 03/24/24 18:29 Date of Discharge: April 04, 2024 Attending Provider at Admission: Sundeep Resendez MD Attending Provider at Discharge: Sundeep Resendez MD Primary Care Provider: SIERRA Andrew Diagnoses at Discharge Discharge Diagnosis (1) Chest pain: Status: Acute (2) Non-ischemic cardiomyopathy: Status: Acute (3) Diabetes: Status: Chronic Qualifiers: Diabetes mellitus type: type 2 Diabetes mellitus rn long term care insulin use: with rn long term care use Diabetes mellitus complication status: with kidney complications Diabetes mellitus complication detail: with chronic kidney disease Chronic kidney disease stage: stage 2 (mild) Qualified Code(s): E11.22 - Type 2 diabetes mellitus with diabetic chronic kidney disease; N18.2 - Chronic kidney disease, stage 2 (mild); 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 (4) Lactic acidosis: Status: Acute (5) Hypokalemia: Status: Acute (6) COPD with acute exacerbation: Status: Acute (7) NSTEMI (non-ST elevated myocardial infarction): Status: Acute (8) Acute hypoxic respiratory failure: Status: Acute (9) Pneumonia: Status: Acute (10) Acute renal failure: Status: Acute (11) GI bleed: Status: Resolved Reason for Visit Reason for Visit: SOB Hospital Course Hospital Course Andrew Sainz is a 83 year old male history of sick sinus syndrome, with a pacemaker in place hypertension COPD, oxygen dependent, history of nonischemic cardiomyopathy, history of LifeVest in place, atrial fibrillation on Eliquis, systolic CHF, who reports fatigue, malaise, cough, shortness of breath for the last few weeks. Patient tells me that for the last few weeks she has had increased shortness of breath increased shortness of breath with exertion, he had a few episodes of chest pain, no palpitations, no defibrillator shocks, no lightheadedness no dizziness, no nausea, no vomiting, no abdominal pain. Denies any fevers, no chills but does report fatigue, malaise, generalized weakness. Patient had a prolonged hospitalization please look at my last progress note Patient was admitted to [facility] for acute hypoxic respiratory failure multifactorial from Stenotrophomonas maltophilia pneumonia, COPD exacerbation, CHF exacerbation. For his pneumonia he completed antibiotic therapy as inpatient COPD exacerbation, will be discharged on prednisone burst, continue home prednisone 5 mg daily For his CHF exacerbation, he required Levophed for blood pressure support as I diuresed him, overall clinically improved, diuresed over 10 L. Discharged on Lasix 40 twice daily, with potassium replacement therapy, with midodrine with a close follow-up cardiology as outpatient For his atrial fibrillation, discharged on amiodarone Patient's hospitalization was complicated by concerns for slow GI bleed with complaints of black tarry stools, with anemia requiring transfusion of PRBC. Anticoagulation had to be held, required transfusion of PRBC Protonix, Carafate, inpatient monitoring, no hemodynamic compromise no recurrent bloody black stools. His hemoglobin has stabilized to 10.2 on discharge. We had a detailed discussion about the risk and benefits of anticoagulant therapy, discussion of stroke versus GI bleed, certainly this is a difficult situation, shared decision making, he voiced understanding, all questions answered, agreed to hold Eliquis on discharge. Continue aspirin 81 mg daily, continue Protonix, Carafate. Patient was advised if he were to have any bloody black stools or, lightheadedness or drop in his hemoglobin, back to the emergency room. Follow-up general surgery in 2 to 4 weeks for consideration EGD and colonoscopy. Follow-up with cardiology thereafter decision when and if to resume anticoagulant therapy Sepsis secondary to pneumonia, UTI, resolved Acute renal failure multifactorial likely cardiorenal syndrome, improved to 1.6 on discharge Physical Exam Const: COMMON NORMALS: no acute distress and patient oriented x3 Resp: COMMON NORMALS: normal respiratory effort, No retractions, No use of accessory muscles and clear to auscultation bilaterally AUSCULTATION: clear to auscultation bilaterally Cardio: COMMON NORMALS: regular rate, regular rhythm, S1 normal heart sound present and S2 normal heart sound present RATE: regular rate RHYTHM: regular rhythm HEART SOUNDS: S1 normal heart sound present and S2 normal heart sound present GI: COMMON NORMALS: Normal to inspection, nondistended, normoactive bowel sounds present and non-tender Extremity: COMMON NORMALS: no pedal edema Neuro: COMMON NORMALS: patient oriented x3 Psych: COMMON NORMALS: mental status grossly normal Urinary Catheter Management: [place] Latex: Cath Placed During This Visit: yes, but has since been removed by the nurse Reason for Continuing Indwelling Catheter: Accurate Measurement of Urinary Output in Critically Ill Patients Urinary Catheter Date of Insertion: 03/24/24 Urinary Catheter Time of Insertion: 18:00 Date Urinary Catheter Removed: 04/03/24 Time Urinary Catheter Discontinued: 10:57 Discharge Data Studies Completed and Pending Completed Studies During Hospitalization Category Date Time Status CXRP [XR chest 1V portable [id number]] Routine Exams 03/25/24 16:15 Completed XR chest 1V portable [id number] Routine Exams 03/29/24 07:00 Completed XR chest 1V portable [id number] Stat Exams 03/24/24 16:24 Completed CV. echo complete* [id number] Stat Ultrasound 03/25/24 18:24 Completed US renal BI* [id number] Routine Ultrasound 03/25/24 08:43 Completed Pending at discharge Category Date Time Status Basic Metabolic Panel AM LABS Lab 04/05/24 04:00 Ordered Complete Blood Count w/Auto AM LABS Lab 04/05/24 04:00 Ordered NT Pro B Type Natriuretic Pept QAM Lab 04/05/24 06:00 Ordered NT Pro B Type Natriuretic Pept QAM Lab 04/06/24 06:00 Ordered OVA and Parasites, Conc and PE Routine Lab 03/27/24 17:00 Results PRBC [Leukocyte Reduced RBC] Routine Lab 04/02/24 20:03 Results Salmonella / Shigella / Campy Routine Lab 03/27/24 17:00 Results Type and Screen Routine Lab 04/02/24 20:03 Results Radiology Impressions Renal Ultrasound 03/25/24 08:43 IMPRESSION: No acute findings. Chest X-Ray 03/29/24 07:00 IMPRESSION: No acute findings. Laboratory Results WBC 8.85 10^3/uL (3.29-11.43) 04/04/24 02:38 RBC 3.76 10^6/uL (3.85-5.65) L 04/04/24 02:38 Hgb 10.20 g/dL (11.27-16.99) L 04/04/24 02:38 Hct 32.5 % (37-53) L 04/04/24 02:38 MCV 86.4 fl (82-101) 04/04/24 02:38 MCH 27.1 pg (27-33) 04/04/24 02:38 MCHC 31.4 g/dL (30-55) 04/04/24 02:38 RDW 16.0 % (12.1-15.1) H 04/04/24 02:38 Plt Count 217 10^3/cmm (157-399) 04/04/24 02:38 MPV 9.6 fL (7.4-10.4) 04/04/24 02:38 Neut % (Auto) 79.6 % 04/04/24 02:38 Lymph % (Auto) 10.3 % 04/04/24 02:38 [place] % (Auto) 9.5 % 04/04/24 02:38 Eos % (Auto) 0.0 % 04/04/24 02:38 Baso % (Auto) 0.0 % 04/04/24 02:38 Neut # (Auto) 7.05 10^3/uL (1.8-7.7) 04/04/24 02:38 Lymph # (Auto) 0.9 10^3/uL (0.8-4.8) 04/04/24 02:38 [place] # (Auto) 0.8 10^3/uL (0.2-0.9) 04/04/24 02:38 Eos # (Auto) 0.0 10^3/uL (0.0-0.8) 04/04/24 02:38 Baso # (Auto) 0.0 10^3/uL (0.0-0.1) 04/04/24 02:38 Nucleated RBC % (auto) 0 % 04/04/24 02:38 Nucleated RBCs # 0.0 /100WBC 04/04/24 02:38 PT 16.40 SECONDS (12.1-14.9) H 03/24/24 16:39 INR 1.23 (0.8-1.2) H 03/24/24 16:39 Specimen Type Arterial 03/24/24 16:56 Sample Site Radial, right 03/24/24 16:56 ABG pH 7.61 (7.35-7.45) H* 03/24/24 16:56 ABG pCO2 31.6 mmHg (35-45) L 03/24/24 16:56 ABG pO2 144.0 mmHg (80.0-100.0) H 03/24/24 16:56 ABG PO2/FiO2 Ratio 369 03/24/24 16:56 ABG HCO3 32.0 mmol/L (22-26) H 03/24/24 16:56 ABG O2 Saturation 99.1 03/24/24 16:56 ABG Base Excess 10.3 mmol/L (-2.0-2.0) H 03/24/24 16:56 Cameron Test Pos 03/24/24 16:56 A-a O2 Gradient 12.4 mmHg (5-10) H 03/24/24 16:56 Hematocrit 33.7 % (42-52) L 03/24/24 16:56 Hgb O2 Saturation 97.2 % (95-100) 03/24/24 16:56 Carboxyhemoglobin 0.4 %THgb (0.4-20.1) 03/24/24 16:56 Methemoglobin 1.5 % (0.4-1.5) 03/24/24 16:56 Total Hemoglobin 11.0 g/dL (14-18) L 03/24/24 16:56 Sodium 138.0 mmol/L (131-143) 03/24/24 16:56 Potassium 2.1 mmol/L (3.5-5.0) L 03/24/24 16:56 Glucose 176.0 mg/dL (70-115) H 03/24/24 16:56 Ionized Calcium 1.0 mmol/L (1.1-1.4) L 03/24/24 16:56 O2 Delivery Device Nc 03/24/24 16:56 O2 Liters/Min 4.0 % 03/24/24 16:56 FiO2 39.0 % 03/24/24 16:56 Switch Tender ID glc 03/24/24 16:56 Sodium 139 mmol/L (136-145) 04/04/24 02:38 Potassium 4.5 mmol/L (3.5-5.1) 04/04/24 02:38 Chloride 99 mmol/L (98-107) 04/04/24 02:38 Carbon Dioxide 32 mmol/L (22-29) H 04/04/24 02:38 Anion Gap 12.5 (5-19) 04/04/24 02:38 BUN 64 mg/dL (8-23) H 04/04/24 02:38 Creatinine 1.6 mg/dL (0.7-1.2) H 04/04/24 02:38 GFR Calculation Not Reportable 04/04/24 02:38 Glucose 112 mg/dL (65-115) 04/04/24 02:38 POC Glucose 194 mg/dL (70-110) H 04/04/24 11:25 Calculated Osmolality 307 mOsm/kg (285-295) H 04/04/24 02:38 Lactic Acid 3.6 mmol/L (0.5-2.2) H 03/24/24 16:39 Lactic Acid (Sepsis) 2.6 mmol/L (0.5-2.2) H 03/24/24 22:23 Lactate 1.0 mmol/L (0.5-2.2) 04/01/24 03:15 Calcium 9.2 mg/dL (8.5-10.5) 04/04/24 02:38 Phosphorus 3.3 mg/dL (2.5-4.5) 04/02/24 02:38 Magnesium 2.0 mg/dL (1.7-2.3) 04/02/24 02:38 Iron 45 ug/dL (59-158) L 04/01/24 03:13 Ferritin 93 ng/mL (30-400) 04/01/24 03:13 Total Bilirubin 0.3 mg/dL (0.15-1.2) 04/02/24 02:38 AST 18 U/L (0-40) 04/02/24 02:38 ALT 20 U/L (0-41) 04/02/24 02:38 Alkaline Phosphatase 87 U/L (40-130) 04/02/24 02:38 Troponin T Baseline 171 ng/L (0-15) H* 03/24/24 16:39 Troponin T 120 Minute 160.7 ng/L (0-15) H 03/24/24 18:59 Delta Troponin T -10.3 ABS# (0-10) L 03/24/24 18:59 Troponin T Hi Sens 6Hr 139.3 ng/L (0-15) H 03/24/24 22:23 Troponin T Hi Sens 6Hr Delta -31.7 ng/L (0-12) L 03/24/24 22:23 C-Reactive Protein 3.0 mg/L (0.0-4.9) 04/02/24 02:38 NT-Pro-B Natriuret Pep 32273 pg/mL (0-450) H 04/04/24 02:38 Total Protein 5.1 g/dL (6.6-8.7) L 04/02/24 02:38 Albumin 3.3 g/dL (3.5-5.2) L 04/02/24 02:38 Globulin 1.8 g/dL (1.3-4.6) 04/02/24 02:38 Procalcitonin 0.17 ng/mL (0-0.5) 04/02/24 02:38 TSH 1.85 uIU/mL (0.27-4.20) 03/24/24 16:39 Urine Color Yellow (Yellow) 03/24/24 20:40 Urine Appearance Turbid (CLEAR) A 03/24/24 20:40 Urine pH 5.0 (5-7) 03/24/24 20:40 Ur Specific [place] 1.015 (1.005-1.030) 03/24/24 20:40 Urine Protein 2+ (Negative) A 03/24/24 20:40 Urine Glucose (UA) Negative (Normal) 03/24/24 20:40 Urine Ketones Negative (Negative) 03/24/24 20:40 Urine Blood 3+ (Negative) A 03/24/24 20:40 Urine Nitrate Negative (Negative) 03/24/24 20:40 Urine Bilirubin Negative (Negative) 03/24/24 20:40 Urine Urobilinogen 0.2 mg/dL (Negative) 03/24/24 20:40 Ur Leukocyte Esterase 2+ (Negative) A 03/24/24 20:40 Urine RBC 3-5 /hpf (0-2) 03/24/24 20:40 Urine WBC >100 /hpf (0-5) H 03/24/24 20:40 Ur Squamous Epith Cells 6-10 /hpf (0-5) 03/24/24 20:40 Amorphous Sediment Not Reportable 03/24/24 20:40 Urine Bacteria 1+ /hpf (NONE) H 03/24/24 20:40 Hyaline Casts 69.91 /lpf 03/24/24 20:40 Vancomycin Trough 19.3 ug/mL (10-15) H 03/28/24 20:37 C. difficile (PCR) Negative (Negative) 03/28/24 09:53 Coronavirus (PCR) Negative (Negative) 03/24/24 16:39 Influenza A (PCR) Negative (Negative) 03/24/24 16:39 Influenza Type B (PCR) Negative (Negative) 03/24/24 16:39 RSV (PCR) Negative (Negative) 03/24/24 16:39 Blood Type O Positive 04/02/24 20:03 Rho(D) Type Rh positive 04/02/24 20:03 Antibody Screen Negative 04/02/24 20:03 Crossmatch See Detail 04/02/24 20:03 Vitals Last Vital Signs Temp 96.9 F L 04/04/24 11:26 Pulse 73 04/04/24 11:41 Resp 18 04/04/24 11:36 BP 117/60 04/04/24 11:26 Pulse Ox 100 04/04/24 11:36 O2 Del Method Nasal Cannula 04/04/24 11:36 O2 Flow Rate 4 04/04/24 11:36 Discharge Plan Discharge Patient Disposition: Xfer SNF Condition: Stable Prescriptions: New insulin lispro [Humalog U-100 Insulin] 100 unit/mL Solution See Rx Instructions .ROUTE .COMPLEX Qty: 10 0RF Rx Instructions: Inject, subcu, 3 times daily, after meals, based on sliding scale provided midodrine 5 mg Tablet 10 mg PO Q8H 30 Days Qty: 180 0RF amiodarone [Pacerone] 200 mg Tablet 200 mg PO DAILY 30 Days Qty: 30 0RF pantoprazole 40 mg Tablet,Delayed Release (Dr/Ec) 40 mg PO BID 30 Days Qty: 60 0RF furosemide 40 mg Tablet 40 mg PO BID@08,16 30 Days Qty: 60 0RF potassium chloride [Klor-Con M20] 20 mEq Tablet,Er Particles/Crystals 40 meq PO QAM 30 Days Qty: 30 0RF prednisone 20 mg Tablet 20 mg PO DAILY 3 Days Qty: 3 0RF potassium chloride [Klor-Con M20] 20 mEq Tablet,Er Particles/Crystals 20 meq PO QPM 30 Days Qty: 30 0RF Continued (DME) Easy Touch Safety Lancets 32 gauge misc See Rx Instructions .Route Qty: 100 2RF Rx Instructions: use 3 times day as needed (DME) pen needle, diabetic [BD Ultra-Fine Domi Pen Needle] 32 gauge x 5/32 needle See Rx Instructions .ROUTE .MEDSUPPLY Qty: 100 5RF Rx Instructions: 3 times day as needed (DME) Easy Touch BluLink Test Strip Strip See Rx Instructions .Route Qty: 50 5RF Rx Instructions: As directed semaglutide 0.25 mg or 0.5 mg (2 mg/3 mL) pen injector 0.25 mg SUBCUT Q7D Qty: 3 2RF Rx Instructions: on wednesday sucralfate [Carafate] 1 gram tablet 1 g PO BID Qty: 60 2RF Flomax 0.4 mg capsule 0.4 mg PO BEDTIME Qty: 30 2RF rosuvastatin 40 mg tablet 40 mg PO DAILY 30 Days Qty: 30 2RF Daliresp 500 mcg tablet 500 mcg PO QAM Qty: 30 2RF montelukast 10 mg tablet 10 mg PO QAM Qty: 90 0RF levocetirizine 5 mg tablet 5 mg PO DAILY Qty: 90 0RF ipratropium-albuterol 0.5 mg-3 mg(2.5 mg base)/3 mL solution for nebulization 3 ml inhalation Q4H PRN (Reason: shortness of breath or wheezing) Qty: 300 2RF fluticasone propionate 50 mcg/actuation spray,suspension 2 spray INTRANASAL DAILY Qty: 9.9 2RF finasteride [Proscar] 5 mg tablet 5 mg PO DAILY Qty: 30 2RF magnesium hydroxide [Milk of Magnesia] 400 mg/5 mL suspension 15 ml PO DAILY PRN (Reason: constipation) Qty: 355 2RF (DME) Oxygen concentrator and portable See Rx Instructions .Route .MEDSUPPLY Qty: 1 0RF Rx Instructions: As directed oxygen 4liters 24 hours concentrator and portable ([facility]) Commode Chair E0163 See Rx Instructions .Route .MEDSUPPLY Qty: 1 0RF Rx Instructions: As directed [employer] Telecomphere 160-9-4.8 mcg/actuation HFA aerosol inhaler 2 inh inhalation BID Qty: 10.7 2RF prednisone 5 mg tablet 5 mg PO DAILY Qty: 30 2RF ferrous sulfate 324 mg (65 mg iron) tablet,delayed release (DR/EC) 324 mg PO DAILY Qty: 30 2RF Probiotic Blend 2 billion cell-50 mg capsule 1 cap PO BID Qty: 60 2RF Rx Instructions: give with meal/snack aspirin [Elton Low Dose Aspirin] 81 mg Tablet,Delayed Release (Dr/Ec) 81 mg PO DAILY Held Fasenra Pen 30 mg/mL auto-injector 30 mg SUBCUT .8 weeks Qty: 1 6RF Hold Instructions: Resume on 07/19/23. Rx Instructions: maintenance dose Discontinued Entresto 24-26 mg tablet 1 tab PO BID Qty: 60 2RF omeprazole 40 mg capsule,delayed release(DR/EC) 40 mg PO QAM Qty: 30 2RF metoprolol succinate 25 mg tablet extended release 24 hr 25 mg PO QAM Qty: 90 0RF Rx Instructions: note dose decrease if heart less 60 use 1/2 tablet bumetanide 1 mg tablet 1 mg PO DAILY Qty: 30 2RF spironolactone 25 mg tablet 25 mg PO DAILY Eliquis 2.5 mg tablet 2.5 mg PO BID metolazone 5 mg tablet 2.5 mg PO DAILY Qty: 7 0RF Discharge Orders: Discharge Order (Routine); Ordered 04/04/24 Ordered By: Sundeep Resendez Referrals: [facility] [Outside] Bubba Garcia MD [Physician] - 2 weeks (egd) Jordy Singer, [facility] [Primary Care Provider] - Asaf Scott MD [Physician] - 1 week Discharge Diet: Cardiac Discharge Activity: Resume usual activity Activity Restrictions/Additional Instructions: - Please follow-up with cardiology in 1 week -Please recheck hemoglobin in 48 hours -Please check creatinine and potassium in 48 hours -Please follow-up with general surgery for consideration of EGD in 2 weeks -If you develop any chest pain or shortness of breath go to the emergency room -If you develop any strokelike symptoms go to the emergency room -Continue to hold Eliquis, due to concerns for anemia, GI bleed, -Please monitor your blood sugars closely -Monitor your blood sugars 3 times daily as after meals -Please record your blood sugars, and a blood sugar log -For your NovoLog -Please inject blood sugar after meals based on sliding scale provided -Do not inject insulin if you do not eat as hypoglycemia kills -This is a NovoLog sliding scale -Insulin sliding ?fingerstick? Insulin ?141-180?0 units/sq 181-220?2 units/sq ?221-260?4 units/sq ?261-300 6 units/sq ?301-350?8 units/sq ?351-400 10 units/sq ?401-450?12 units/sq >450? 14units/sq -If your blood sugar is greater than 500 go to the emergency room -If your blood sugar is less than 60 or at anytime you feel lightheaded or dizzy or diaphoretic or have chest palpitations check your blood sugar, and eat a hard candy or drink orange juice and go immediately to the emergency room -Remember hypoglycemia kills, so if his blood sugar is less than 60 we have to increase it by taking in a sugary meal such as a hard candy or orange juice and go to the emergency room -If you have any questions please call us where here to help Discharge Attestations Time Spent in Discharge Care*: greater than 30 min Status at Discharge: Cognitive status at discharge: cognitively intact, Behavioral status at discharge: cooperative, Quality Metrics Clinical Quality Measures [ No reported AMI, CVA or VTE this stay] Coding Level of Care Code 18646 Total time (in minutes) for Discharge: 45 Diagnoses Chest pain R07.9 Non-ischemic cardiomyopathy I42.8 Type 2 diabetes mellitus with stage 2 chronic kidney disease, with long-term current use of insulin E11.22; N18.2; Z79.4 Diabetes mellitus type: type 2 Diabetes mellitus rn long term care insulin use: with residential use Diabetes mellitus complication status: with kidney complications Diabetes mellitus complication detail: with chronic kidney disease Chronic kidney disease stage: stage 2 (mild) Lactic acidosis E87.20 Hypokalemia E87.6 COPD with acute exacerbation J44.1 NSTEMI (non-ST elevated myocardial infarction) I21.4 Acute hypoxic respiratory failure J96.01 Pneumonia J18.9 Acute renal failure N17.9 GI bleed K92.2
--- NOTE | 2024-04-04 14:20 | PC.NURSE ---
Report is called to GISELA Key at [facility] at 1441. [phone].
== END 2024-04-04 15:41 | disposition skilled nursing facility (03) | DRG 871 ==
LOC: ER 18:11 → ICU 18:30 → CSU 04-01 11:52
PROVIDERS: Admitting Provider Family Medicine; Emergency Provider Emergency Medicine; PCP Nurse Practitioner; Visit Provider Family Medicine
DX: A41.9 Sepsis, unspecified organism (principal); I21.4 Non-ST elevation (NSTEMI) myocardial infarction; I50.23 Acute on chronic systolic (congestive) heart failure; R65.21 Severe sepsis with septic shock; J15.8 Pneumonia due to other specified bacteria; J96.01 Acute respiratory failure with hypoxia; R57.0 Cardiogenic shock; N17.9 Acute kidney failure, unspecified; I42.8 Other cardiomyopathies; I13.0 Hypertensive heart and chronic kidney disease with heart failure and stage 1 through stage 4 chronic kidney disease, or unspecified chronic kidney disease; E87.20 Acidosis, unspecified; J44.0 Chronic obstructive pulmonary disease with (acute) lower respiratory infection; J44.1 Chronic obstructive pulmonary disease with (acute) exacerbation; K92.2 Gastrointestinal hemorrhage, unspecified; N39.0 Urinary tract infection, site not specified; E11.22 Type 2 diabetes mellitus with diabetic chronic kidney disease; N18.2 Chronic kidney disease, stage 2 (mild); E87.6 Hypokalemia; I49.5 Sick sinus syndrome; I48.91 Unspecified atrial fibrillation; D64.9 Anemia, unspecified; K21.9 Gastro-esophageal reflux disease without esophagitis; E78.5 Hyperlipidemia, unspecified; R33.9 Retention of urine, unspecified; Z95.0 Presence of cardiac pacemaker; Z99.81 Dependence on supplemental oxygen; Z95.5 Presence of coronary angioplasty implant and graft; Z85.038 Personal history of other malignant neoplasm of large intestine; Z86.711 Personal history of pulmonary embolism; Z90.49 Acquired absence of other specified parts of digestive tract; Z79.01 Long term (current) use of anticoagulants; Z79.82 Long term (current) use of aspirin; Z79.85 Long-term (current) use of injectable non-insulin antidiabetic drugs
CPT/HCPCS: 36415; 36416; 36573; 36592; 36600; 51702; 71045; 76770; 80048; 80051; 80053; 80202; 81001; 82274; 82330; 82728; 82805; 82962; 83540; 83605; 83735; 83880; 84100; 84145; 84443; 84484; 85014; 85018; 85025; 85610; 86140; 86850; 86900; 86920; 87040; 87045; 87070; 87077; 87086; 87177; 87186; 87205; 87209; 87427; 87449; 87493; 87637; 93005; 93306; 94640; 96365; 96367; 96372; 96375; 96376; 97110; 97116; 97162; 97530; 99285; C1751; J0692; J1650; J1815; J1940; J2020; J2405; J2470; J2543; J2919; J3370; J3372; J3475; J3480; J7050; J7512; J7626; P9016; P9046

== ENCOUNTER → 2024-04-12 16:33 | Outpatient (BNVA) | payer MEDICARE, MEDICAID, SELFPAY | PROVIDERS: PCP Nurse Practitioner; Visit Provider Nurse Practitioner Family | DX: I11.0 Hypertensive heart disease with heart failure (principal); I50.22 Chronic systolic (congestive) heart failure; I48.91 Unspecified atrial fibrillation; Z95.0 Presence of cardiac pacemaker; D64.9 Anemia, unspecified; E78.5 Hyperlipidemia, unspecified | CPT/HCPCS: 36415; 80048; 83880; 85025; 99213 ==

== ENCOUNTER → 2024-04-26 08:22 | Outpatient (BNVA) | payer MEDICARE, MEDICAID, SELFPAY | PROVIDERS: PCP Nurse Practitioner; Visit Provider Surgery | DX: Z09 Encounter for follow-up examination after completed treatment for conditions other than malignant neoplasm (principal) | CPT/HCPCS: 99213 ==

== ENCOUNTER 2024-05-21 23:08 | Emergency (ER) | payer MEDICARE, MEDICAID, SELFPAY ==
[2024-05-21 23:10] VITALS: BMI 25.1
--- NOTE | 2024-05-21 23:50 | XRR_ITS ---
PROCEDURE INFORMATION: Exam: XR Chest Exam date and time: 05/21/2024 11:57 PM Age: 83 years old Clinical indication: Cough and shortness of breath and wheezing; Prior surgery; Surgery date: 6+ months; Surgery type: Pacer; C/O cough with SOB and wheezing. History of copd and chf. TECHNIQUE: Imaging protocol: Radiologic exam of the chest. Views: 1 view. COMPARISON: CR XR chest 1V portable [id number] 03/29/2024 5:33 AM FINDINGS: Tubes, catheters and devices: Cardiac pacemaker, unchanged. Lungs: New mild mid and lower lung zone peripheral interstitial opacities. No focal consolidation. Pleural spaces: Unremarkable. No pleural effusion. No pneumothorax. Heart/Mediastinum: Unremarkable. No cardiomegaly. Bones/joints: Unremarkable. XR/XR chest 1V portable [id number] IMPRESSION: Probable mild congestive heart failure.
--- NOTE | 2024-05-21 23:50 | ECG_ITS ---
[facility] Date: 2024-05-21 Pat Name: Andrew Sainz Department: Room: Gender: Male Director Of Training: : 1940 Requested By: Niles Perry Order Number: [id number] Reading MD: Measurements Intervals [place] Rate: 88 P: 74 MD: 198 QRS: -69 QRSD: 181 T: 106 QT: 439 QTc: 533 Interpretive Statements ELECTRONIC VENTRICULAR PACEMAKER ABNORMAL RHYTHM ECG No previous ECG available for comparison [email or web address]
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
[2024-05-21 23:55] VITALS: BP 135/58; PULSE 96; RESP 18; O2SAT 96
[2024-05-21 23:59] LABS: Basophils % 0.1 %; Hematocrit 29.4 % (37-53); Lymphocytes # 0.5 10^3/uL (0.8-4.8); Lymphocytes % 4.6 %; Mean Corpuscular HGB Conc 29.9 g/dL (30-55); Mean Corpuscular Hemoglobin 25.9 pg (27-33); Mean Corpuscular Volume 86.5 fl (82-101); Mean Platelet Volume 9.1 fL (7.4-10.4); Monocytes # 0.5 10^3/uL (0.2-0.9); Neutrophils # 10.57 10^3/uL (1.8-7.7); Neutrophils % 90.9 %; Nucleated Red Blood Cells % 0 %; Platelet Count 229 10^3/cmm (157-399); Red Cell Distribution Width 16.2 % (12.1-15.1); White Blood Count 11.64 10^3/uL (3.29-11.43)
[2024-05-21] MEDS: FUROsemide 10 mg/mL SDV 10mL 60 MG IVP (23:59)
[2024-05-22 00:22] LABS: ABG PCO2 39.8 mmHg (35-45); ABG PH Result 7.42 (7.35-7.45); Arterial Blood Gas Hematocrit 29.2 % (42-52); Blood Gas Allen Test Pos; Blood Gas Operator Identificat Anonymous; Blood Gas Sample Type Arterial; Carboxyhemoglobin 0.7 %THgb (0.4-20.1); HCO3 ABG 25.6 mmol/L (22-26); HGB O2 Sat 96.5 % (95-100); Methemoglobin 1.6 % (0.4-1.5); Total Hemoglobin 9.5 g/dL (14-18)
[2024-05-22 00:22] LABS: Lactic Sepsis W/Reflex 1.8 mmol/L (0.5-2.2); Troponin(5th) Baseline 96 ng/L (0-15)
[2024-05-22 00:38] LABS: Influenza A NEGATIVE (Negative); Influenza B NEGATIVE (Negative); Respiratory Syncytial Virus Ce NEGATIVE (Negative); SARS-CoV-2 PCR NEGATIVE (Negative)
[2024-05-22 00:43] LABS: Alanine Aminotransferase 14 U/L (0-41); Albumin Level 3.2 g/dL (3.5-5.2); Alkaline Phosphatase 58 U/L (40-130); Anion Gap 14.9 (5-19); Aspartate Amino Transferase 23 U/L (0-40); Blood Urea Nitrogen 20 mg/dL (8-23); Calcium 8.7 mg/dL (8.5-10.5); Carbon Dioxide 23 mmol/L (22-29); Chloride 107 mmol/L (98-107); Creatinine Clr Calc Pharmacy 57.0032; Globulin 2.3 g/dL (1.3-4.6); Glucose 150 mg/dL (65-115); Magnesium 2.7 mg/dL (1.7-2.3); NT Pro B Type Natriuretic Pept 8268 pg/mL (0-450); Osmolality Calculated 297 mOsm/kg (285-295); Potassium 3.9 mmol/L (3.5-5.1); Sodium 141 mmol/L (136-145); Total Bilirubin 0.3 mg/dL (0.15-1.2); Total Protein 5.5 g/dL (6.6-8.7)
[2024-05-22 01:21] VITALS: BP 146/64; PULSE 98; RESP 18; O2SAT 94
[2024-05-22 03:06] VITALS: BP 139/74; PULSE 80; RESP 18; O2SAT 96
[2024-05-22 03:14] VITALS: BP 139/74; PULSE 88; RESP 16; O2SAT 97
[2024-05-22 07:18] VITALS: PULSE 91; RESP 18; O2SAT 98
[2024-05-22] MEDS: ipratropium-albuterol 3 mL Neb INHALATION (07:21)
[2024-05-22 07:23] VITALS: PULSE 89
== END 2024-05-22 08:41 | disposition home or self-care (01) ==
PROVIDERS: Emergency Provider Emergency Medicine; PCP Nurse Practitioner
DX: J44.9 Chronic obstructive pulmonary disease, unspecified (principal); Z79.4 Long term (current) use of insulin; Z11.52 Encounter for screening for COVID-19; Z85.038 Personal history of other malignant neoplasm of large intestine; E11.9 Type 2 diabetes mellitus without complications; E78.5 Hyperlipidemia, unspecified; I11.0 Hypertensive heart disease with heart failure; I50.9 Heart failure, unspecified; Z99.81 Dependence on supplemental oxygen
CPT/HCPCS: 36415; 36600; 71045; 80053; 82805; 83605; 83735; 83880; 84484; 85025; 87637; 93005; 94640; 96374; 99285; J1940

== ENCOUNTER 2024-06-05 13:10 | Emergency (ER) | payer MEDICARE, MEDICAID, SELFPAY ==
[2024-06-05] VITALS (8 sets, daily range): BP systolic 117–143; BP diastolic 56–97; PULSE 72–91; RESP 16–19; TEMP 36.7; O2SAT 95–100; BMI 25.1
--- NOTE | 2024-06-05 13:13 | XRR_ITS ---
PROCEDURE INFORMATION: Exam: XR Chest Exam date and time: 06/05/2024 1:49 PM Age: 83 years old Clinical indication: Shortness of breath; Additional info: SOB TECHNIQUE: Imaging protocol: Radiologic exam of the chest. Views: 1 view. COMPARISON: CR (CHEST, ) 05/21/2024 11:57 PM FINDINGS: Tubes, catheters and devices: Left Chest dual lead pacer. Lungs: Pulmonary vessels within normal limits. Pleural spaces: Small left-sided pleural effusion. Heart/Mediastinum: Cardiomediastinal silhouette is within normal limits. Bones/joints: Unremarkable. XR/XR chest 1V portable [id number] IMPRESSION: Small left-sided pleural effusion
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
[2024-06-05] MEDS: albuterol 2.5 mg/3 mL Neb INHALATION (13:22)
[2024-06-05] MEDS: methylPREDNISolone sod succ 125 mg/2 mL INJ IV (13:29)
[2024-06-05] MEDS: FUROsemide 10 mg/mL SDV 10mL 60 MG IVP (13:33)
[2024-06-05 13:45] LABS: ABG PCO2 37.6 mmHg (35-45); ABG PH Result 7.48 (7.35-7.45); Alveolar-Arterial Oxygen Gradi 10.9 mmHg (5-10); Arterial Blood Gas Hematocrit 28.8 % (42-52); Base Excess ABG 4.4 mmol/L (-2.0-2.0); Blood Gas Allen Test Pos; Blood Gas Operator Identificat GD; Blood Gas Sample Site Radial, right; Blood Gas Sample Type Arterial; Carboxyhemoglobin 0.3 %THgb (0.4-20.1); HCO3 ABG 28.2 mmol/L (22-26); HGB O2 Sat 96.7 % (95-100); Ionized Calcium Level - ABG 1.1 mmol/L (1.1-1.4); Oxygen Device NC; Oxygen Saturation ABG 97.9; PO2 FiO2 Ratio Arterial Blood 347; Potassium Level - ABG 3.6 mmol/L (3.5-5.0); Total Hemoglobin 9.4 g/dL (14-18)
[2024-06-05 13:45] LABS: Basophils % 0.1 %; Lymphocytes # 0.8 10^3/uL (0.8-4.8); Lymphocytes % 8.7 %; Mean Corpuscular HGB Conc 29.7 g/dL (30-55); Mean Corpuscular Hemoglobin 25.6 pg (27-33); Mean Corpuscular Volume 86.1 fl (82-101); Mean Platelet Volume 9.5 fL (7.4-10.4); Monocytes % 10.7 %; Neutrophils # 7.41 10^3/uL (1.8-7.7); Neutrophils % 80.1 %; Nucleated Red Blood Cells % 0 %; Platelet Count 218 10^3/cmm (157-399); Red Cell Distribution Width 16.2 % (12.1-15.1); White Blood Count 9.26 10^3/uL (3.29-11.43)
[2024-06-05 14:02] LABS: INR 1.02 (0.8-1.2)
[2024-06-05 14:08] LABS: Influenza A NEGATIVE (Negative); Influenza B NEGATIVE (Negative); Respiratory Syncytial Virus Ce NEGATIVE (Negative); SARS-CoV-2 PCR NEGATIVE (Negative)
[2024-06-05 14:11] LABS: Alanine Aminotransferase 27 U/L (0-41); Albumin Level 3.5 g/dL (3.5-5.2); Alkaline Phosphatase 85 U/L (40-130); Anion Gap 14.1 (5-19); Aspartate Amino Transferase 29 U/L (0-40); Blood Urea Nitrogen 29 mg/dL (8-23); Calcium 7.9 mg/dL (8.5-10.5); Carbon Dioxide 29 mmol/L (22-29); Chloride 104 mmol/L (98-107); Creatinine Clr Calc Pharmacy 57.0032; Globulin 2.5 g/dL (1.3-4.6); Glucose 92 mg/dL (65-115); Osmolality Calculated 301 mOsm/kg (285-295); Potassium 4.1 mmol/L (3.5-5.1); Sodium 143 mmol/L (136-145); Total Bilirubin 0.5 mg/dL (0.15-1.2)
[2024-06-05 14:46] LABS: NT Pro B Type Natriuretic Pept 8611 pg/mL (0-450)
== END 2024-06-05 16:42 | disposition home or self-care (01) ==
PROVIDERS: Emergency Provider Emergency Medicine; PCP Nurse Practitioner
DX: I11.0 Hypertensive heart disease with heart failure (principal); I50.22 Chronic systolic (congestive) heart failure; E11.9 Type 2 diabetes mellitus without complications; Z79.4 Long term (current) use of insulin; Z11.52 Encounter for screening for COVID-19; J44.9 Chronic obstructive pulmonary disease, unspecified; Z85.038 Personal history of other malignant neoplasm of large intestine
CPT/HCPCS: 36415; 36600; 71045; 80051; 80053; 82330; 82805; 83880; 85025; 85610; 87637; 94640; 96374; 96375; 99284; J1940; J2919; J7613

== ENCOUNTER → 2024-10-02 12:14 | Outpatient (BNVA) | payer MEDICARE, MEDICAID, SELFPAY | PROVIDERS: PCP Nurse Practitioner; Visit Provider Internal Medicine | DX: I11.0 Hypertensive heart disease with heart failure (principal); I50.22 Chronic systolic (congestive) heart failure; I25.10 Atherosclerotic heart disease of native coronary artery without angina pectoris; Z95.5 Presence of coronary angioplasty implant and graft; Z95.0 Presence of cardiac pacemaker | CPT/HCPCS: 99214 ==